=== PATIENT | female | born 1955 | race Caucasian/White ===

== ENCOUNTER 2016-04-01 10:35 | Inpatient (IN) | payer OTHER ==
[~2016-04-01] VITALS: Ht 162.6 cm; Wt 67.0 kg
[~2016-04-01 10:35] MED LIST: ASPI-664 PO; DOCU100C26 PO; LOSA1TAB19 PO; ONDA4TAB8 PO; PANT40TA4 PO; POLY17PO6 PO; TRAM-40 PO; TRAZ50TA18 PO
[2016-04-01] MEDS ORDERED: SOD CHLORIDE 0.9% 1,000 ML IV STA ×2 (11:08→13:50)
[2016-04-01] MEDS ORDERED: HYDROmorphONE 1 MG/ML SYG IV STA ×2 (11:21→13:50)
[2016-04-01] MEDS ORDERED: ONDANSETRON 4 MG INJ IV STA ×2 (11:52→13:50)
[2016-04-01 11:58] LABS: BASOPHILS % 0.6 % (0.0-2.0); EOSINOPHILS % 0.6 % (0.0-7.0); HEMATOCRIT 29.4 % (37.0-47.0); HEMOGLOBIN 9.9 g/dl (12.0-16.0); LYMPHOCYTES # 1.1 10^3/ul (0.8-2.9); LYMPHOCYTES % 21.8 % (15.0-51.0); MEAN CORPUSCULAR HEMOGLOBIN 33.1 pg (29.0-33.0); MEAN CORPUSCULAR HGB CONC 33.7 g/dl (32.0-37.0); MEAN CORPUSCULAR VOLUME 98.2 fl (82.0-101.0); MEAN PLATELET VOLUME 7.8 fl (7.4-10.4); MONOCYTE # 0.4 10^3/ul (0.3-0.9); MONOCYTES % 8.6 % (0.0-11.0); NEUTROPHIL # 3.3 10^3/ul (1.6-7.5); NEUTROPHILS % 68.4 % (39.0-77.0); PLATELET COUNT 287 10^3/UL (140-440); RED BLOOD COUNT 2.99 10^6/ul (4.20-5.40); RED CELL DISTRIBUTION WIDTH 18.5 % (11.5-14.5); UNCORRECTED WBC 4.8 10^3/ul (4.8-10.8); WHITE BLOOD COUNT 4.8 10^3/ul (4.8-10.8)
[2016-04-01 11:59] LABS: CONDITION 1; LH ANALYZER COMMENTS 1
--- NOTE | 2016-04-01 12:02 | ERA ---
ER Documentation Chief Complaint Date/Time DATE: 04/01/16 TIME: 11:57 Chief Complaint left flank pain for 8 days.no trauma, no hematuria or dysuria HPI This is a 61-year-old female with a known history of ovarian carcinoma with total abdominal hysterectomy performed in May 2015. Her locks tender oncologist is Dr. Erick Saldñaa. The patient has completed her chemotherapy several months prior to arrival. She indicates that over the past 8 days she has been experiencing bilateral flank pain. The pain is been persistent. The pain is 10 out of 10 in intensity. She has been taking Dallas with no relief of her pain. She has had no fevers or shaking or chills. She denies any frequency urgency or dysuria. She has had nausea but denies any bilious or nonbilious emesis. She has had no diarrhea or constipation. She does indicate that she is experienced this pain in the past however normally this flank pain is relieved with Dallas and given that her analgesic medication at home did not improve her pain she came to the emergency department to be further evaluated. She has no shortness of breath at rest or exertion. She has no chest pain or pressure that radiates to the neck arm back or jaw. ROS All systems reviewed and are negative except as per history of present illness. Medications Home Meds Reported Medications Docusate Sodium* (Doc-Q-Lace*) 100 Mg Capsule, 100 MG PO DAILY, CAP 12/17/15 Polyethylene Glycol* (Miralax*) 17 Gm Powd.pack, 17 GM PO DAILY, #30 PACKET 12/17/15 Trazodone Hcl* (Trazodone Hcl*) 50 Mg Tablet, 50 MG PO QHS, #30 TAB 12/17/15 Ondansetron Hcl* (Zofran*) 4 Mg Tablet, 4 MG PO Q6H Y for NAUSEA AND OR VOMITING , TAB 12/17/15 Tramadol Hcl* (Ultram*) 50 Mg Tablet, 50 MG PO TID Y for PAIN, TAB 12/17/15 Aspirin (Low Dose Aspirin) 81 Mg Tablet.dr, 81 MG PO DAILY, #30 TAB 12/17/15 Losartan-Hydrochlorothiazide (Losartan-HCTZ) 50-12.5 Mg Tab, 1 TAB PO DAILY, TAB 12/17/15 Pantoprazole* (Pantoprazole*) 40 Mg Tablet.dr, 40 MG PO DAILY, TAB 12/17/15 Allergies Allergies: Coded Allergies: No Known Allergy (Unverified , 12/17/15) PMhx/Soc History of Surgery: Yes (hernia, hysterectomy, abdomen, right shoulder) Anesthesia Reaction: No Hx Neurological Disorder: No Hx Respiratory Disorders: No Hx Cardiac Disorders: No Hx Psychiatric Problems: No Hx Miscellaneous Medical Probl: Yes (ovaries cancer. ) Hx Alcohol Use: No Hx Substance Use: No Hx Tobacco Use: No Smoking Status: Never smoker Physical Exam Vitals Vital Signs Date Time Temp Pulse Resp B/P Pulse Ox O2 Delivery O2 Flow Rate FiO2 04/01/16 10:37 98.6 102 20 133/85 98 Physical Exam Constitutional:Well-developed. Cachectic. Appeared to be in a significant amount discomfort. HEENT:Normocephalic. Atraumatic.Pupils were equal round reactive to light. Dry mucous membranes.No tonsillar exudates. Neck: No nuchal rigidity. No lymphadenopathy. No posterior cervical spine tenderness or step-offs. Respiratory: Not using accessory muscles of respiration.Lungs were clear to auscultation bilaterally. No rhonchi. No rales. No wheezing. Cardiovascular: Regular rate regular rhythm.No murmurs. No rubs were appreciated.S1, S2 normal. Distal pulses are palpable 2+ bilaterally. GI: Abdomen was soft. Bilateral CVA tenderness. Non Distended. No pulsatile abdominal masses or bruits. No rebound. No guarding. Bowel sounds were present and normal. Muscle skeletal: Full range of motion of both the upper and lower extremities bilaterally.Normal muscle tone.No assymetrical calf tenderness or swelling. Skin: No petechia, no purpura. No lesions on the palms or the soles of the feet. No maculopapular rash. Right chest wall port in place which was clean dry and intact NEURO: Patient was alert, awake, orientated x3.No facial droop. Gait observed and normal with no ataxia.Speech had regular rate and rhythm. No focal neurological deficits. Result Diagram: 04/01/16 1137 04/01/16 1137 Results 24 hrs Laboratory Tests Test 04/01/16 11:37 Activated Partial Thromboplast Time 27.4Sec Alanine Aminotransferase (ALT/SGPT) 35IU/L Albumin 3.6g/dl Albumin/Globulin Ratio 1.24 Alkaline Phosphatase 135IU/L Amylase Level 48U/L Anion Gap 16 Aspartate Amino Transf (AST/SGOT) 37IU/L Basophils # 0.010^3/ul Basophils % 0.6% Blood Morphology Comment Blood Urea Nitrogen 9mg/dl Calcium Level 9.2mg/dl Carbon Dioxide Level 32mmol/L Chloride Level 98mmol/L Creatinine 0.87mg/dl Direct Bilirubin 0.00mg/dl Eosinophils # 0.010^3/ul Eosinophils % 0.6% Globulin 2.90g/dl Glucose Level 115mg/dl Hematocrit 29.4% Hemoglobin 9.9g/dl INR International Normalized Ratio 1.01 Indirect Bilirubin 0.3mg/dl Lipase 66U/L Lymphocytes # 1.110^3/ul Lymphocytes % 21.8% Mean Corpuscular Hemoglobin 33.1pg Mean Corpuscular Hemoglobin Concent 33.7g/dl Mean Corpuscular Volume 98.2fl Mean Platelet Volume 7.8fl Monocytes # 0.410^3/ul Monocytes % 8.6% Neutrophils # 3.310^3/ul Neutrophils % 68.4% Nucleated Red Blood Cells # 0.010^3/ul Nucleated Red Blood Cells % 0.0/100WBC Platelet Count 31164^3/UL Potassium Level 3.1mmol/L Prothrombin Time 13.3Sec Prothrombin Time Ratio 1.0 Red Blood Count 2.9910^6/ul Red Cell Distribution Width 18.5% Sodium Level 143mmol/L Total Bilirubin 0.3mg/dl Total Protein 6.5g/dl Troponin I < 0.012ng/ml White Blood Count 4.810^3/ul Current Medications Medications (Trade) Dose Ordered Sig/Bossman Route PRN Reason Start Time Stop Time Status Last Admin Dose Admin Sodium Chloride (NS) 1,000 ml @ 1,000 mls/hr Q1H STAT IV 04/01/16 11:08 04/01/16 12:07 DC 04/01/16 11:44 Hydromorphone HCl (Dilaudid) 1 mg ONCE STAT IV 04/01/16 11:21 04/01/16 11:23 DC 04/01/16 11:44 Ondansetron HCl 4 mg 4 mg ONCE STAT IV 04/01/16 11:52 04/01/16 11:53 DC 04/01/16 11:57 Sodium Chloride (NS) 1,000 ml @ 1,000 mls/hr Q1H STAT IV 04/01/16 13:50 04/01/16 14:49 04/01/16 14:16 Hydromorphone HCl (Dilaudid) 1 mg ONCE STAT IV 04/01/16 13:50 04/01/16 13:52 DC 04/01/16 14:15 Ondansetron HCl (Zofran Inj) 4 mg ONCE STAT IV 04/01/16 13:50 04/01/16 13:52 DC 04/01/16 14:16 Potassium Chloride (Klor-Con 20) 20 meq ONCE STAT PO 04/01/16 13:50 04/01/16 13:53 DC 04/01/16 14:16 Ondansetron HCl (Zofran Inj) 4 mg BRIDGE ORDER PRN IV NAUSEA AND/OR VOMITING 04/01/16 14:30 04/02/16 14:29 Acetaminophen (Tylenol Tab) 650 mg ER BRIDGE PRN PO MILD PAIN/FEVER 04/01/16 14:30 04/02/16 14:29 Procedures/MDM This patient presented to the emergency department with flank pain and was seen and evaluated by myself. My differential diagnosis included but was not limited to abdominal aortic aneurysm, appendicitis, pancreatitis, perforated peptic ulcer, perforated viscus, Boerhaaves syndrome or visceral pain such as diverticulitis, DKA, esophagitis, hepatitis or bowel obstruction. The patient was placed on a truck safety inspector, continuous pulse oximetry, and IV access was established by nursing staff. The patient received intravenous Dilaudid and Zofran. Her pain had only minimally improved. I did feel is necessary to obtain a chest radiograph to rule out an infectious process. The radiograph indicated the following read by the radiologist and myself: 1. Port-A-Cath overlying the right chest. 2. Elevated right diaphragm. 3. No infiltrates visualized. I obtained a CT scan of the abdomen to rule out the possibility of an obstruction that could be causing her pain. A CT scan read by the radiologist and reviewed by myself indicated the followin. Significant interval worsening of malignant ascites with sizable fluid collection in the left upper quadrant compressing the left hepatic lobe. 2. Small cystic implants along the right hepatic lobe, not significantly changed. 3. Matted appearance of the small bowel in the lower abdomen/pelvis with angulated appearance and distortion of the bowel loops with areas of dilatation likely related to serosal implants although they are not clearly visible on this exam due to absence of IV and oral contrast. 4. Anastomosis at the rectosigmoid junction with surrounding soft tissue thickening. Nonspecific presacral soft tissue thickening as well. The findings are not significantly changed. 5. Unchanged moderate right hydroureteronephrosis. 6. New mild left hydroureteronephrosis. 7. Layering sludge versus small stones in the gallbladder. 12 Lead EKG tracing ordered and reviewed by myself showed: Normal sinus rhythm of 81 bpm and no arrhythmia. MA interval normal. QRS duration normal. No ST segment elevation No ST segment depression. No changes consistent with acute ischemia. The patient received another dose of analgesic medication and IV fluids. After receiving 2 doses of IV opiate analgesic medication her pain had only improved minimally and therefore I did feel she required admission for intractable abdominal pain. The patient had no tenderness in the left of the right lower quadrant or physical exam findings to suggest a small bowel obstruction. There is no obstructive uropathy and I did feel that her pain could be a result of her neoplasm without evidence of infection. She will be admitted for observation to the medical surgical floor under the care of her primary care physician Dr. Gamino. I also spoke with Dr. Erick Johnston to inform him the patient was being admitted but he was not officially consulted. Departure Diagnosis: Primary Impression: Intractable abdominal pain Condition: Serious JUAN PABLO COBB Apr 01, 2016 12:02
[2016-04-01 12:04] LABS: INR 1.01; PROTIME 13.3 Sec (12.2-14.2)
[2016-04-01 12:05] LABS: PARTIAL THROMBOPLASTIN TIME 27.4 Sec (25.0-35.0)
[2016-04-01 12:10] LABS: ALBUMIN 3.6 g/dl (3.3-4.9)
[2016-04-01 12:11] LABS: CHLORIDE 98 mmol/L (97-110); POTASSIUM 3.1 mmol/L (3.5-5.1); SODIUM 143 mmol/L (135-144)
[2016-04-01 12:13] LABS: ALBUMIN/GLOBULIN RATIO 1.24; AMYLASE 48 U/L (11-123); ANION GAP 16 (8-16); ASPARTATE AMINO TRANSFERASE 37 IU/L (15-46); BILIRUBIN,INDIRECT 0.3 mg/dl (0-1.1); BILIRUBIN,TOTAL 0.3 mg/dl (0.2-1.3); CARBON DIOXIDE 32 mmol/L (21-31); CREATININE 0.87 mg/dl (0.44-1.00); TOTAL PROTEIN 6.5 g/dl (6.1-8.1)
[2016-04-01 12:14] LABS: ALANINE AMINOTRANSFERASE 35 IU/L (13-69); ALKALINE PHOSPHATASE 135 IU/L (42-121); BLOOD UREA NITROGEN 9 mg/dl (7-20); CALCIUM 9.2 mg/dl (8.4-10.2); GLUCOSE 115 mg/dl (70-220)
--- NOTE | 2016-04-01 12:19 | RADRPT ---
PROCEDURE: Chest x-ray CLINICAL INDICATION: Pain. TECHNIQUE: One-view frontal. COMPARISON: None available FINDINGS: The cardiac silhouette is normal. Port-A-Cath overlies the right chest. The catheter is in the superior vena cava. There is mild elevation of the right diaphragm. No infiltrates are noted. No pneumothorax is noted. IMPRESSION: 1. Port-A-Cath overlying the right chest. 2. Elevated right diaphragm. 3. No infiltrates visualized. RPTAT: HH .Soren Mcdonough MD, MD Date Time Electronically viewed and signed by .Soren Mcdonough MD, on 04/01/2016 12:19 .G/
[2016-04-01 12:29] LABS: TROPONIN-I < 0.012 ng/ml (0.00-0.12)
--- NOTE | 2016-04-01 13:00 | RADRPT ---
PROCEDURE: CT Abdomen and Pelvis without contrast. CLINICAL INDICATION: Abdominal pain. History of ovarian and colon cancer. The patient is on chemo . TECHNIQUE: CT scan of the abdomen and pelvis without contrast was performed on a multidetector hig h-resolution CT scanner. The patient was scanned without intravenous contrast. Coronal and sagittal reformatted images were obtained from the axial source images. Images were reviewed on a high-resol [employer] (formerly [employer]) PACS workstation. The total exam CTDI equals 15.25 mGy and the total exam DLP equals 912.85 mG y-cm. One or more of the following dose reduction techniques were used: Automated exposure control. Adjustment of the mA and/or kV according to patient size. Use of iterative reconstruction technique. COMPARISON: CT abdomen and pelvis 12/17/2015 FINDINGS: CT abdomen: The lung bases are remarkable for mild bibasilar atelectasis. The heart size is normal, without per icardial thickening or effusion. There has been significant interval worsening of malignant ascites. Small cystic implants along the right hepatic lobe appear similar to prior. Redemonstrated is matted appearance of the small bowel loops in the lower abdomen and pelvis with angulated appearance and areas of dilatation. There is high suspicion of mesenteric implants in this area. Postsurgical changes are again seen in the rect osigmoid junction with surrounding nonspecific soft tissue thickening. There is persistent moderate hydroureteronephrosis. There is new mild left hydroureteronephrosis. The spleen is normal in size and homogeneous in density. The stomach is partially collapsed, but i s grossly unremarkable. The pancreas as visualized is normal. The gallbladder and biliary tree are unremarkable and there is no evidence for biliary dilatation. The adrenal glands are symmetric and normal. There is no urolithiasis. The aorta is of normal caliber. There is no retroperitoneal lymphadenopathy. The erlinda hepatis jayde on is clear. The bowel and mesentery, as visualized, are equally unremarkable. CT pelvis: Preseptal soft tissue thickening appear similar to prior. There is mild stool retention in the rect um. The surrounding osseous structures are remarkable for degenerative spondylosis of the spine. No osteolytic or osteoblastic lesion is detected. IMPRESSION: 1. Significant interval worsening of malignant ascites with sizable fluid collection in the left up per quadrant compressing the left hepatic lobe. 2. Small cystic implants along the right hepatic lobe, not significantly changed. 3. Matted appearance of the small bowel in the lower abdomen/pelvis with angulated appearance and d istortion of the bowel loops with areas of dilatation likely related to serosal implants although th ey are not clearly visible on this exam due to absence of IV and oral contrast. 4. Anastomosis at the rectosigmoid junction with surrounding soft tissue thickening. Nonspecific pr esacral soft tissue thickening as well. The findings are not significantly changed. 5. Unchanged moderate right hydroureteronephrosis. 6. New mild left hydroureteronephrosis. 7. Layering sludge versus small stones in the gallbladder. RPTAT: BB .Fátima Mullen MD, MD Date Time Electronically viewed and signed by .Fátima Mullen MD, MD on 04/01/2016 13:00 .O/
[2016-04-01] MEDS ORDERED: POTASSIUM CHLORIDE (SR) 20 MEQ TAB PO STA (13:50)
[2016-04-01] MEDS ORDERED: ACETAMINOPHEN 325 MG TAB PO PRN (14:30)
[2016-04-01] MEDS ORDERED: ONDANSETRON 4 MG INJ IV PRN (14:30)
[2016-04-01 17:05] LABS: ADD UMIC NO; URINE BILIRUBIN (Dip) NEGATIVE (NEGATIVE); URINE BLOOD (Dip) NEGATIVE (NEGATIVE); URINE COLOR LT. YELLOW (YELLOW); URINE GLUCOSE (Dip) NEGATIVE (NEGATIVE); URINE KETONES (Dip) TRACE (NEGATIVE); URINE LEUKOCYTE ESTERASE (Dip) NEGATIVE (NEGATIVE); URINE NITRITE (Dip) NEGATIVE (NEGATIVE); URINE TOTAL PROTEIN (Dip) NEGATIVE (NEGATIVE); URINE UROBILINOGEN (Dip) 0.2 E.U./dL (0.1-1.0)
[2016-04-01] MEDS ORDERED: NACL 0.9% 3 ML SYG IV SCH (18:00)
[2016-04-01] MEDS: HYDROmorphONE 1 MG/ML SYG IV PRN (18:09)
[2016-04-01] MEDS: ENOXAPARIN 30 MG/0.3 ML SYG SC SCH (18:16)
--- NOTE | 2016-04-01 18:32 | HP ---
DATE OF ADMISSION: 04/01/2016 CHIEF COMPLAINT: Left flank pain and left abdominal pain for the last 8 days. It got significantly worse over the last couple of days. HISTORY OF THE PRESENT ILLNESS: The patient is a 61-year-old female with history of ovaria n carcinoma with metastasis. Patient had a surgery by Dr. Johnston in May 2015. Patient stated t hat she is in the process of evaluation for the second surgery. The patient also follows with Dr. Christine sheth in hematology/oncology consultation. The patient received 6 cycles of chemotherapy that she co mpleted several months ago. The patient stated that she developed severe left flank and left lower abdomen pain. The patient was taking Erie at home; however, that does not relieve her pain anymore . Patient stated that she has some mild nausea. Denies any emesis. The patient denies any fever. Denies any chest pain, denies any shortness of breath, denies any extremity swelling. Denies any c hange in neurological status. Denies fever, chills. Patient received Zofran for nausea and Dilaudi d for pain with some relief in symptoms. The patient also underwent a chest x-ray in the emergency room which showed elevated right diaphragm, no infiltrates, Port-A-Cath overlying the right chest. The patient underwent a CT scan of the abdomen and pelvis with impression of significant interval wo rsening of malignant ascites with sizeable fluid collection in the left upper quadrant compressing t he left hepatic pole. 2. Small cystic implants along the right hip by hepatic pole, not significantly changed. 3. Matted appearance of the small bowel in the lower abdomen/pelvis with undulated appearance and d istortion of the bowel loop with areas of dilatation likely related to serosal implants, although th ey are not clearly visible on this exam. 4. Anastomosis at the rectosigmoid junction with surrounding soft tissue thickening, nonspecific pr esacral soft tissue thickening as well. The findings are not significantly changed. 5. Unchanged, moderate right hydronephrosis. 6. New mild hydroureteronephrosis. 7. Layering sludge versus small stones in the gallbladder. The patient also deal denies any dysuri a. 8. A 12-lead EKG showed sinus rhythm with no ST segment elevation or depression and patient will be admitted for further evaluation and management. PAST MEDICAL HISTORY: Positive for hypertension, anemia and ovarian cancer status post chemotherapy and mentioned surgery last year. PAST SURGICAL HISTORY: Status post total abdominal hysterectomy and oophorectomy and colon resectio n by Dr. Johnston in May 2015, status post hernia repair, status post right shoulder surgery x2. FAMILY HISTORY: Positive for hypertension in patient's mother and father. SOCIAL HISTORY: Patient lives at home with her . The patient denies any tobacco use, denies any illicit drug use, denies any alcohol use. ALLERGIES: NO KNOWN ALLERGIES. HOME MEDICATIONS 1. Colace. 2. MiraLax. 3. Trazodone. 4. Zofran. 5. Ultram 6. Losartan. 7. Hydrochlorothiazide. 8. Protonix. 9. Erie. REVIEW OF SYSTEMS: A 12-point review of systems is negative unless what mentioned in the HPI. PHYSICAL ASSESSMENT: GENERAL: Well-developed, well-nourished female currently is awake, alert. VITAL SIGNS: Temperature is 98.6, pulse is 81, blood pressure 136/95, respiratory rate 19, oxygen s aturation 100% on room air. HEENT: Head is atraumatic, normocephalic. Pupils equal, round, reactive to light and accommodation . Oral mucosa is pink and moist. NECK: Supple, no cervical lymphadenopathy, no thyromegaly. CHEST: Lungs clear bilaterally. There is no rhonchi, wheezes, rales noted. CARDIOVASCULAR: Normal S1, S2. No murmurs, gallops, clicks, rubs noted. ABDOMEN: Round, soft, nondistended. Patient has right lower quadrant tenderness and bilateral cost overtebral angle tenderness. SKIN: There is no rash, petechiae noted. EXTREMITIES: No edema, clubbing, cyanosis. Pulses equal bilaterally 2+. SKIN: There is no rash or petechiae noted. NEUROLOGICAL: The patient is awake, alert and oriented x4. No focal deficits noted. LABORATORY DATA: On admission, CBC: White blood cells 4.8, hemoglobin 9.9, hematocrit 29.4, plate lets 287. Chemistry: Sodium is 143, potassium 3.1, chloride 98, carbon dioxide 32, anion gap 16, B UN 9, creatinine 0.87, glucose 115, AST 37, ALT 35, alkaline phosphate is 135. Troponin less than 0 .012, amylase is 48, lipase 66. Urinalysis with trace of ketones, negative for leukocyte esterase, negative for nitrites. ASSESSMENT AND PLAN: 1. Intractable abdominal pain. Will continue Dilaudid p.r.n. for pain and Zofran p.r.n. for nausea . 2. Ovarian cancer. Patient will be followed by Dr. Foy in hematology/oncology consultation and f ollowed by Dr. Johnston from a surgery standpoint. 3. Will continue IV fluids. Monitor electrolytes. The patient is status post potassium replacemen t. 4. Will start Lovenox for deep venous thrombosis prophylaxis and Protonix for peptic ulcer disease prophylaxis. 5. Further recommendations based on clinical course. Plan of care was discussed with Dr. Zazueta. Dictated By: LARRY [facility] [employer] REPRESENTATIVE for BRIAN ZAZUETA MD SR/NTS Conf#: [id number] DID#: [id number]
[2016-04-01 19:27] VITALS: BP 134/81; RESP 18
[2016-04-01 20:00] VITALS: Ht 162.6 cm; Wt 67.0 kg
[2016-04-01] MEDS: ZOLPIDEM 5 MG TAB PO PRN (22:16)
[2016-04-02] MEDS: HYDROmorphONE 1 MG/ML SYG IV PRN ×6 (00:33→21:41)
[2016-04-02] MEDS: ONDANSETRON 4 MG INJ IV PRN ×2 (04:13→12:03)
[2016-04-02] MEDS: PANTOPRAZOLE (EC) 40 MG TAB PO SCH (05:47)
[2016-04-02] MEDS ORDERED: DIPHENHYDRAMINE 25 MG CAP PO PRN (07:00)
[2016-04-02 07:35] VITALS: BP 126/82; RESP 20
[2016-04-02 08:12] LABS: POTASSIUM 3.5 mmol/L (3.5-5.1)
[2016-04-02 08:15] LABS: CREATININE 0.76 mg/dl (0.44-1.00)
[2016-04-02 08:16] LABS: CALCIUM 8.6 mg/dl (8.4-10.2)
[2016-04-02 08:17] LABS: BASOPHILS % 0.2 % (0.0-2.0); EOSINOPHILS # 0.1 10^3/ul (0.0-0.5); EOSINOPHILS % 1.5 % (0.0-7.0); LYMPHOCYTES # 1.1 10^3/ul (0.8-2.9); LYMPHOCYTES % 25.9 % (15.0-51.0); MEAN CORPUSCULAR HEMOGLOBIN 32.6 pg (29.0-33.0); MEAN CORPUSCULAR HGB CONC 32.1 g/dl (32.0-37.0); MEAN CORPUSCULAR VOLUME 101.4 fl (82.0-101.0); MONOCYTE # 0.4 10^3/ul (0.3-0.9); NEUTROPHIL # 2.6 10^3/ul (1.6-7.5); NEUTROPHILS % 62.9 % (39.0-77.0); PLATELET COUNT 268 10^3/UL (140-415); RED BLOOD COUNT 2.76 10^6/ul (4.20-5.40); RED CELL DISTRIBUTION WIDTH 17.1 % (11.5-14.5); WHITE BLOOD COUNT 4.1 10^3/ul (4.8-10.8)
[2016-04-02] MEDS: ENOXAPARIN 30 MG/0.3 ML SYG SC SCH (09:11)
--- NOTE | 2016-04-02 10:03 | PN ---
Date/Time of Note Date/Time of Note DATE: 04/02/16 TIME: 10:00 Assessment/Plan VTE Prophylaxis VTE Prophylaxis Intervention: LMWH Lines/Catheters IV Catheter Type (from Nrsg): PORTACATH Assessment/Plan Assessment/Plan 1. Intractable abdominal pain. - Dilaudid p.r.n. for pain and Zofran p.r.n. for nausea. 2. Ovarian cancer. - per Dr. Foy in hematology/oncology consultation and followed by Dr. Johnston from a surgery standpoint. 3. Continue IV fluids. Monitor electrolytes. 4. Lovenox for deep venous thrombosis prophylaxis 5. Protonix for peptic ulcer disease prophylaxis. 6. Hypokalemia- resolved Further recommendations based on clinical course. Plan of care was discussed with Dr. Bravo. Subjective 24 Hr Interval Summary Free Text/Dictation c/o abdominal pain- on dilaudid for pain- effective for pain. dw staff Constitutional: requiring IVF Eyes: no complaints ENT: no complaints Respiratory: no complaints Cardiovascular: no complaints Gastrointestinal: pain Genitourinary: no complaints Musculoskeletal: no complaints Skin: no complaints Neurologic: no complaints Endocrine: no complaints Psychological: no complaints Immunologic: no complaints Exam/Review of Systems Vital Signs Vitals Vital Signs Date Time Temp Pulse Resp B/P Pulse Ox O2 Delivery O2 Flow Rate FiO2 04/02/16 07:35 98.2 76 20 126/82 97 04/01/16 18:03 Room Air Intake and Output 04/01/16 04/01/16 04/02/16 15:00 23:00 07:00 Intake Total 800 ml Balance 800 ml Exam Constitutional: alert, oriented, well developed Psych: no complaints Head: atraumatic Eyes: EOMI, PERRL, nl sclera ENMT: nl external ears & nose Neck: non-tender Respiratory: clear to auscultation Cardiovascular: nl pulses Gastrointestinal: non-tender, soft Musculoskeletal: nl extremities to inspection Extremities: normal pulses Neurological: nl mental status, nl speech Skin: nl turgor Lymph: nontender Results Result Diagram: 04/02/16 0729 04/02/16 0729 Results 24 hrs Laboratory Tests Test 04/01/16 11:37 04/01/16 16:22 04/02/16 07:29 Activated Partial Thromboplast Time 27.4 Alanine Aminotransferase (ALT/SGPT) 35 Albumin 3.6 Albumin/Globulin Ratio 1.24 Alkaline Phosphatase 135 H Amylase Level 48 Anion Gap 16 14 Aspartate Amino Transf (AST/SGOT) 37 Basophils # 0.0 0.0 Basophils % 0.6 0.2 Blood Morphology Comment Blood Urea Nitrogen 9 8 Calcium Level 9.2 8.6 Carbon Dioxide Level 32 H 28 Chloride Level 98 100 Creatinine 0.87 0.76 Direct Bilirubin 0.00 Eosinophils # 0.0 0.1 Eosinophils % 0.6 1.5 Globulin 2.90 Glucose Level 115 105 Hematocrit 29.4 L 28.0 L Hemoglobin 9.9 L 9.0 L INR International Normalized Ratio 1.01 Indirect Bilirubin 0.3 Lipase 66 Lymphocytes # 1.1 1.1 Lymphocytes % 21.8 25.9 Mean Corpuscular Hemoglobin 33.1 H 32.6 Mean Corpuscular Hemoglobin Concent 33.7 32.1 Mean Corpuscular Volume 98.2 101.4 H Mean Platelet Volume 7.8 10.0 # Monocytes # 0.4 0.4 Monocytes % 8.6 9.0 Neutrophils # 3.3 2.6 Neutrophils % 68.4 62.9 Nucleated Red Blood Cells # 0.0 0.0 Nucleated Red Blood Cells % 0.0 0.0 Platelet Count 287 # 268 Potassium Level 3.1 L 3.5 Prothrombin Time 13.3 Prothrombin Time Ratio 1.0 Red Blood Count 2.99 L 2.76 L Red Cell Distribution Width 18.5 H 17.1 H Sodium Level 143 138 Total Bilirubin 0.3 Total Protein 6.5 Troponin I < 0.012 White Blood Count 4.8 # 4.1 L Urine Bilirubin NEGATIVE Urine Clarity CLEAR Urine Color LT. YELLOW Urine Glucose NEGATIVE Urine Hemoglobin NEGATIVE Urine Ketones TRACE H Urine Leukocyte Esterase NEGATIVE Urine Nitrite NEGATIVE Urine Specific [place] 1.010 Urine Total Protein NEGATIVE Urine Urobilinogen 0.2 E.U./dL Urine pH 8.5 Medications Medications Current Medications Ondansetron HCl (Zofran Inj) 4 mg Q6H PRN IV NAUSEA AND/OR VOMITING Last administered on 04/02/16t 04:13; Admin Dose 4 MG; Start 04/01/16 at 18:00 Acetaminophen/ Hydrocodone Bitart ([place]nell (5/325)) 1 tab Q6H PRN PO MODERATE PAIN LEVEL 4-6; Start 04/01/16 at 18:00 Hydromorphone HCl (Dilaudid) 1 mg Q4H PRN IV SEVERE PAIN LEVEL 7-10 Last administered on 04/02/16 09:05; Admin Dose 1 MG; Start 04/01/16 at 18:00 Pantoprazole (Protonix Tab) 40 mg DAILY@06 PO Last administered on 04/02/16 05 :47; Admin Dose 40 MG; Start 04/02/16 at 06:00 Enoxaparin Sodium (Lovenox) 30 mg DAILY SC Last administered on 04/02/16 09:11 ; Admin Dose 30 MG; Start 04/01/16 at 18:00 Zolpidem Tartrate (Ambien) 5 mg HS PRN PO INSOMNIA Last administered on 22:16; Admin Dose 5 MG; Start 04/01/16 at 22:00 Diphenhydramine HCl (Benadryl) 25 mg Q6H PRN PO ITCHING Last administered on 06:49; Admin Dose 25 MG; Start 04/02/16 at 07:00 BLAKE BRUMFIELD Apr 02, 2016 10:03
--- NOTE | 2016-04-02 14:26 | CONS ---
Date/Time of Note Date/Time of Note DATE: 04/02/16 TIME: 14:24 Assessment/Plan Assessment/Plan Chief Complaint/Hosp Course 61-year-old female with stage IIIB ovarian cancer s/p surgery by Dr. Johnston in May 2015 and 6 cycles of carbo/taxol with persistently elevated CA125, recently admitted to outside hospital with CT concerning for persistent disease, now admitted with 1 month of left flank pain. - Recent PET/CT 03-26-16 showed progressive disease with large volume of peripherally FDG avid loculated abdominal and pelvic ascites with increased omental caking and peritoneal nodularity noted throughout the abdomen and pelvis consistent with progressive recurrent ovarian carcinoma. with history of ovarian carcinoma with metastasis. - Discussed with Dr. Foy; she had planned to start gemcitabine/cisplatin. Dr. Johnston will evaluate the patient today. If no plan for surgical intervention, plan to start gemcitabine/cisplatin while in house. - Suggest simethicone for gas. Continue pain control per primary team. Problems: Consultation Date/Type/Reason Admit Date/Time Apr 02, 2016 at 10:07 Date of Consultation: Apr 02, 2016 Type of Consultation: Hematology/Oncology Reason for Consultation Intractable pain, ovarian cancer Hx of Present Illness The patient is a 61-year-old female with stage IIIB ovarian cancer s/p surgery by Dr. Johnston in May 2015 and 6 cycles of carbo/taxol with persistently elevated CA125, recently admitted to outside hospital with CT concerning for persistent disease, now admitted with eight days of abdominal and left flank pain. She also endorses bloating. Recent PET/CT 03-26-16 showed progressive disease with large volume of peripherally FDG avid loculated abdominal and pelvic ascites with increased omental caking and peritoneal nodularity noted throughout the abdomen and pelvis consistent with progressive recurrent ovarian carcinoma. with history of ovarian carcinoma with metastasis. The patient stated that she developed severe left flank and left lower abdomen pain. The patient was taking [place] at home; however, that does not relieve her pain anymore. Patient stated that she has some mild nausea. Denies any emesis. The patient denies any fever. Denies any chest pain, denies any shortness of breath, denies any extremity swelling. Denies any change in neurological status. Denies fever, chills. Patient received Zofran for nausea and Dilaudid for pain with some relief in symptoms. The patient also underwent a chest x-ray in the emergency room which showed elevated right diaphragm, no infiltrates, Port-A-Cath overlying the right chest. The patient underwent a CT scan of the abdomen and pelvis with impression of significant interval worsening of malignant ascites with sizeable fluid collection in the left upper quadrant compressing the left hepatic pole. 2. Small cystic implants along the right hip by hepatic pole, not significantly changed. 3. Matted appearance of the small bowel in the lower abdomen/pelvis with undulated appearance and distortion of the bowel loop with areas of dilatation likely related to serosal implants, although they are not clearly visible on this exam. 4. Anastomosis at the rectosigmoid junction with surrounding soft tissue thickening, nonspecific presacral soft tissue thickening as well. The findings are not significantly changed. 5. Unchanged, moderate right hydronephrosis. 6. New mild hydroureteronephrosis. 7. Layering sludge versus small stones in the gallbladder. Psychological: no complaints Past Medical History Hypertension, anemia and ovarian cancer status post chemotherapy and mentioned surgery last year. Past Surgical History Status post total abdominal hysterectomy and oophorectomy and colon resection by Dr. Johnston in May 2015, status post hernia repair, status post right shoulder surgery x2 Family History Significant Family History: other (Positive for hypertension in patient's mother and father) Social History Patient lives at home with her . The patient denies any tobacco use, denies any illicit drug use, denies any alcohol use. Smoking Status: Never smoker Exam/Review of Systems Vital Signs Vitals Vital Signs Date Time Temp Pulse Resp B/P Pulse Ox O2 Delivery O2 Flow Rate FiO2 04/02/16 07:35 98.2 76 20 126/82 97 04/01/16 18:03 Room Air Intake and Output 04/01/16 04/01/16 04/02/16 15:00 23:00 07:00 Intake Total 800 ml Balance 800 ml Exam Constitutional: alert, oriented Head: atraumatic, normocephalic Eyes: nl conjunctiva Neck: non-tender, supple Respiratory: clear to auscultation Cardiovascular: regular rate and rhythm Gastrointestinal: soft, tender Musculoskeletal: nl extremities to inspection Results Result Diagram: 04/02/16 0729 04/02/16 0729 Results 24 hrs Laboratory Tests Test 04/01/16 16:22 04/02/16 07:29 Urine Bilirubin NEGATIVE Urine Clarity CLEAR Urine Color LT. YELLOW Urine Glucose NEGATIVE Urine Hemoglobin NEGATIVE Urine Ketones TRACE H Urine Leukocyte Esterase NEGATIVE Urine Nitrite NEGATIVE Urine Specific [place] 1.010 Urine Total Protein NEGATIVE Urine Urobilinogen 0.2 E.U./dL Urine pH 8.5 Anion Gap 14 Basophils # 0.0 Basophils % 0.2 Blood Urea Nitrogen 8 Calcium Level 8.6 Carbon Dioxide Level 28 Chloride Level 100 Creatinine 0.76 Eosinophils # 0.1 Eosinophils % 1.5 Glucose Level 105 Hematocrit 28.0 L Hemoglobin 9.0 L Lymphocytes # 1.1 Lymphocytes % 25.9 Mean Corpuscular Hemoglobin 32.6 Mean Corpuscular Hemoglobin Concent 32.1 Mean Corpuscular Volume 101.4 H Mean Platelet Volume 10.0 # Monocytes # 0.4 Monocytes % 9.0 Neutrophils # 2.6 Neutrophils % 62.9 Nucleated Red Blood Cells # 0.0 Nucleated Red Blood Cells % 0.0 Platelet Count 268 Potassium Level 3.5 Red Blood Count 2.76 L Red Cell Distribution Width 17.1 H Sodium Level 138 White Blood Count 4.1 L Medications Medications Current Medications Ondansetron HCl (Zofran Inj) 4 mg Q6H PRN IV NAUSEA AND/OR VOMITING Last administered on 04/02/16 12:03; Admin Dose 4 MG; Start 04/01/16 at 18:00 Acetaminophen/ Hydrocodone Bitart ([place] (5/325)) 1 tab Q6H PRN PO MODERATE PAIN LEVEL 4-6; Start 04/01/16 at 18:00 Hydromorphone HCl (Dilaudid) 1 mg Q4H PRN IV SEVERE PAIN LEVEL 7-10 Last administered on 04/02/16 13:13; Admin Dose 1 MG; Start 04/01/16 at 18:00 Pantoprazole (Protonix Tab) 40 mg DAILY@06 PO Last administered on 04/02/16 05 :47; Admin Dose 40 MG; Start 04/02/16 at 06:00 Enoxaparin Sodium (Lovenox) 30 mg DAILY SC Last administered on 04/02/16 09:11 ; Admin Dose 30 MG; Start 04/01/16 at 18:00 Zolpidem Tartrate (Ambien) 5 mg HS PRN PO INSOMNIA Last administered on 22:16; Admin Dose 5 MG; Start 04/01/16 at 22:00 Diphenhydramine HCl (Benadryl) 25 mg Q6H PRN PO ITCHING Last administered on t 06:49; Admin Dose 25 MG; Start 04/02/16 at 07:00 TOSEE MD Apr 02, 2016 14:26
[2016-04-02] MEDS: DEXTROSE 5%-0.45% NACL 1,000 ML IV SCH (17:33)
--- NOTE | 2016-04-02 18:53 | CONS ---
Date/Time of Note Date/Time of Note DATE: 04/02/16 TIME: 18:53 Consultation Date/Type/Reason Admit Date/Time Apr 02, 2016 at 10:07 Hx of Present Illness Andi Waddell M.D. 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 . Now, 9 months after completion of primary surgery she has persistentt disease either due to chemoresistence or a 3 month delay in starting the chemo postop dueto insurance issues. She has pain and recent intermittent N/V. Medical history/ROS: all other systems unremarkable. Surgical: Primary cytoreduction 05/24 Medications: 04/25/15 aspirin 80 mg tablet 1 tablet by mouth DAILY 12/05/15 docusate sodium 100 mg capsule 1 capsule by mouth BID 07/01/15 Gas Relief 125 mg capsule 1 capsule by mouth as directed 12/05/15 lorazepam 1 mg tablet 1 tablet by mouth Q12h 05/13/15 losartan 50 mg-hydrochlorothiazide 12.5 mg tablet 1 tablet by mouth DAILY 04/25/15 pantoprazole 40 mg tablet,delayed release 1 tablet by mouth BID 12/05/15 polyethylene glycol 3350 17 gram oral powder packet 12/05/15 senna 8.6 mg tablet 1 tablet by mouth BID 07/01/15 tramadol 50 mg tablet 1 tablet by mouth Q6-8h prn pain 08/15/15 trazodone 50 mg tablet 1 tablet by mouth QHS prn Allergies: No active allergies recorded Family History: Noncontributory Social History: Noncontributory Review of Systems: Negative except for above noted Physical Examination Vitals (03/31/2016): Weight 148, Height 62.25, BP 120/70, BMI 27.1. General: Alert. HEENT: Pupils are equal, round, reactive to light and accommodation. Neck: Supple with no masses of lymphadenopathy. Breast: Deferred due to recent examination and responsibility of primary care physician. Chest: Clear to auscultation and percussion with no rales, ronchi, or wheeze. Heart: Normal rhythm with no murmur. Abdominal exam: nontender, nondistended, no masses, no ascites. location: N/A Pelvic exam: no masses or cul-de-sac nodularity noted Rectal: confirmatory with pelvic exam. Neurological: Grossly intact Assessment: Ovarian cancer with recurrence would benefit from secondary CRS even though persistent disease because the problem is her chemo was delayed 3 months postop. Informed of need to start chemo nathan postop and will call [facility] Plan: Secondary cytoreduction, possible bowel resection, possible fecal diversion. All risks and benefits of this procedure have been discussed in detail with the patient, as well as alternative treatment strategies and their implications. The patient is aware that there is some possibility of a blood transfusion and its associated risks and benefits. She wishes to proceed and gives her informed consent. Andi Waddell M.D. Psychological: no complaints Social History Smoking Status: Never smoker Exam/Review of Systems Vital Signs Vitals Vital Signs Date Time Temp Pulse Resp B/P Pulse Ox O2 Delivery O2 Flow Rate FiO2 04/02/16 07:35 98.2 76 20 126/82 97 04/01/16 18:03 Room Air Intake and Output 04/01/16 04/01/16 04/02/16 15:00 23:00 07:00 Intake Total 800 ml Balance 800 ml Results Result Diagram: 04/02/16 0729 04/02/16 0729 Results 24 hrs Laboratory Tests Test 04/02/16 07:29 Anion Gap 14 Basophils # 0.0 Basophils % 0.2 Blood Urea Nitrogen 8 Calcium Level 8.6 Carbon Dioxide Level 28 Chloride Level 100 Creatinine 0.76 Eosinophils # 0.1 Eosinophils % 1.5 Glucose Level 105 Hematocrit 28.0 L Hemoglobin 9.0 L Lymphocytes # 1.1 Lymphocytes % 25.9 Mean Corpuscular Hemoglobin 32.6 Mean Corpuscular Hemoglobin Concent 32.1 Mean Corpuscular Volume 101.4 H Mean Platelet Volume 10.0 # Monocytes # 0.4 Monocytes % 9.0 Neutrophils # 2.6 Neutrophils % 62.9 Nucleated Red Blood Cells # 0.0 Nucleated Red Blood Cells % 0.0 Platelet Count 268 Potassium Level 3.5 Red Blood Count 2.76 L Red Cell Distribution Width 17.1 H Sodium Level 138 White Blood Count 4.1 L Medications Medications Current Medications Ondansetron HCl (Zofran Inj) 4 mg Q6H PRN IV NAUSEA AND/OR VOMITING Last administered on 04/02/16 12:03; Admin Dose 4 MG; Start 04/01/16 at 18:00 Acetaminophen/ Hydrocodone Bitart ([place] (5/325)) 1 tab Q6H PRN PO MODERATE PAIN LEVEL 4-6; Start 04/01/16 at 18:00 Hydromorphone HCl (Dilaudid) 1 mg Q4H PRN IV SEVERE PAIN LEVEL 7-10 Last administered on 04/02/16 17:34; Admin Dose 1 MG; Start 04/01/16 at 18:00 Pantoprazole (Protonix Tab) 40 mg DAILY@06 PO Last administered on 04/02/16 05 :47; Admin Dose 40 MG; Start 04/02/16 at 06:00 Enoxaparin Sodium (Lovenox) 30 mg DAILY SC Last administered on 04/02/16 09:11 ; Admin Dose 30 MG; Start 04/01/16 at 18:00 Zolpidem Tartrate (Ambien) 5 mg HS PRN PO INSOMNIA Last administered on 22:16; Admin Dose 5 MG; Start 04/01/16 at 22:00 Diphenhydramine HCl 25 mg 25 mg Q6H PRN PO ITCHING Last administered on 06:49; Admin Dose 25 MG; Start 04/02/16 at 07:00 Dextrose/Sodium Chloride (D5-1/2ns) 1,000 ml @ 60 mls/hr [id number] IV Last administered on 04/02/16 17:33; Admin Dose 60 MLS/HR; Start 04/02/16 at 16:30 Al Hydrox/Mg Hydrox/Simethicone (Mag-Al Plus) 30 ml Q6H PRN PO GASTROINTESTINAL UPSET; Start 04/02/16 at 17:30 Simethicone (Mylicon) 80 mg Q6 PO Last administered on 04/02/16 17:33; Admin Dose 80 MG; Start 04/02/16 at 18:00 ANDI WADDELL MD Apr 02, 2016 18:53
[2016-04-02 20:00] VITALS: BP 140/86; PULSE 76; RESP 18
[2016-04-02] MEDS: ZOLPIDEM 5 MG TAB PO PRN (21:45)
[2016-04-03] MEDS: HYDROmorphONE 1 MG/ML SYG IV PRN ×6 (01:33→23:03)
[2016-04-03] MEDS: PANTOPRAZOLE (EC) 40 MG TAB PO SCH (05:54)
[2016-04-03 06:20] LABS: ADD SCAN DIFF NO
[2016-04-03 06:48] LABS: POTASSIUM 3.5 mmol/L (3.5-5.1)
[2016-04-03 06:50] LABS: BASOPHILS % 0.6 % (0.0-2.0); EOSINOPHILS # 0.1 10^3/ul (0.0-0.5); HEMATOCRIT 27.6 % (37.0-47.0); HEMOGLOBIN 8.8 g/dl (12.0-16.0); LYMPHOCYTES # 1.3 10^3/ul (0.8-2.9); LYMPHOCYTES % 36.7 % (15.0-51.0); MEAN CORPUSCULAR HGB CONC 31.9 g/dl (32.0-37.0); MEAN CORPUSCULAR VOLUME 100.4 fl (82.0-101.0); MEAN PLATELET VOLUME 10.3 fl (7.4-10.4); MONOCYTE # 0.4 10^3/ul (0.3-0.9); MONOCYTES % 11.8 % (0.0-11.0); NEUTROPHIL # 1.7 10^3/ul (1.6-7.5); NEUTROPHILS % 48.6 % (39.0-77.0); PLATELET COUNT 219 10^3/UL (140-415); RED BLOOD COUNT 2.75 10^6/ul (4.20-5.40); RED CELL DISTRIBUTION WIDTH 16.7 % (11.5-14.5); WHITE BLOOD COUNT 3.5 10^3/ul (4.8-10.8)
[2016-04-03 06:51] LABS: CREATININE 0.78 mg/dl (0.44-1.00)
[2016-04-03 06:52] LABS: CALCIUM 8.6 mg/dl (8.4-10.2)
[2016-04-03 07:48] VITALS: BP 136/95; RESP 20
[2016-04-03] MEDS: ONDANSETRON 4 MG INJ IV PRN ×2 (09:00→15:22)
[2016-04-03] MEDS: ENOXAPARIN 30 MG/0.3 ML SYG SC SCH (09:08)
[2016-04-03] MEDS: AL HYDROX/MG HYDROX/SIMETH 30 ML CUP PO PRN ×3 (10:03→23:07)
[2016-04-03] MEDS: DEXTROSE 5%-0.45% NACL 1,000 ML IV SCH (10:04)
--- NOTE | 2016-04-03 14:58 | PN ---
Date/Time of Note Date/Time of Note DATE: 04/03/16 TIME: 14:50 Assessment/Plan VTE Prophylaxis VTE Prophylaxis Intervention: SCD's Lines/Catheters IV Catheter Type (from Nrs): Port-A-Cath Urinary Cath still in place: No Assessment/Plan Chief Complaint/Hosp Course ASSESSMENT AND PLAN: - Progressive recurrent ovarian carcinoma. Status post chemotherapy. Dr. BOYCE is following in hematology/oncology consultation. Dr. Johnston is following from a surgery standpoint. Plan for surgery beginning next week. - Intractable abdominal pain and nausea secondary to #1. Continue Dilaudid p.r.n. for pain and Zofran p.r.n. for nausea. Continue Lovenox for deep venous thrombosis prophylaxis and Protonix for peptic ulcer disease prophylaxis. Further recommendations based on clinical course. Plan of care was discussed with Dr. Bravo. Problems: Subjective 24 Hr Interval Summary Free Text/Dictation Patient's pain is well controlled with Dilaudid, patient complains of mild nausea relieved by Zofran, denies any emesis. Exam/Review of Systems Vital Signs Vitals Vital Signs Date Time Temp Pulse Resp B/P Pulse Ox O2 Delivery O2 Flow Rate FiO2 04/03/16 07:48 97.6 87 20 136/95 97 04/02/16 20:00 Room Air Intake and Output 04/02/16 04/02/16 04/03/16 15:00 23:00 07:00 Intake Total 850 ml 920 ml Output Total 600 ml Balance 850 ml 320 ml Exam PHYSICAL ASSESSMENT: GENERAL: Well-developed, well-nourished female currently is awake, alert. HEENT: Head is atraumatic, normocephalic. NECK: Supple, no cervical lymphadenopathy, no thyromegaly. CHEST: Lungs clear bilaterally. There is no rhonchi, wheezes, rales noted. CARDIOVASCULAR: Normal S1, S2. No murmurs, gallops, clicks, rubs noted. ABDOMEN: Round, soft, nondistended. Patient has right lower quadrant tenderness and bilateral costovertebral angle tenderness. SKIN: There is no rash, petechiae noted. EXTREMITIES: No edema, clubbing, cyanosis. Pulses equal bilaterally 2+. SKIN: There is no rash or petechiae noted. NEUROLOGICAL: The patient is awake, alert and oriented x4. Results Result Diagram: 04/03/16 0600 04/03/16 0600 Results 24 hrs Laboratory Tests Test 04/03/16 05:18 04/03/16 06:00 CA 125 Antigen 39.6 H Anion Gap 13 Basophils # 0.0 Basophils % 0.6 Blood Urea Nitrogen 7 Calcium Level 8.6 Carbon Dioxide Level 28 Chloride Level 101 Creatinine 0.78 Eosinophils # 0.1 Eosinophils % 2.0 Glucose Level 111 Hematocrit 27.6 L Hemoglobin 8.8 L Lymphocytes # 1.3 Lymphocytes % 36.7 Mean Corpuscular Hemoglobin 32.0 Mean Corpuscular Hemoglobin Concent 31.9 L Mean Corpuscular Volume 100.4 Mean Platelet Volume 10.3 Monocytes # 0.4 Monocytes % 11.8 H Neutrophils # 1.7 Neutrophils % 48.6 Nucleated Red Blood Cells # 0.0 Nucleated Red Blood Cells % 0.0 Platelet Count 219 Potassium Level 3.5 Red Blood Count 2.75 L Red Cell Distribution Width 16.7 H Sodium Level 138 White Blood Count 3.5 L Medications Medications Current Medications Ondansetron HCl (Zofran Inj) 4 mg Q6H PRN IV NAUSEA AND/OR VOMITING Last administered on 04/03/16 09:00; Admin Dose 4 MG; Start 04/01/16 at 18:00 Acetaminophen/ Hydrocodone Bitart ([place] (5/325)) 1 tab Q6H PRN PO MODERATE PAIN LEVEL 4-6; Start 04/01/16 at 18:00 Hydromorphone HCl (Dilaudid) 1 mg Q4H PRN IV SEVERE PAIN LEVEL 7-10 Last administered on 04/03/16 14:27; Admin Dose 1 MG; Start 04/01/16 at 18:00 Pantoprazole (Protonix Tab) 40 mg DAILY@06 PO Last administered on 04/03/16 05 :54; Admin Dose 40 MG; Start 04/02/16 at 06:00 Enoxaparin Sodium (Lovenox) 30 mg DAILY SC Last administered on 04/03/16 09:08 ; Admin Dose 30 MG; Start 04/01/16 at 18:00 Zolpidem Tartrate (Ambien) 5 mg HS PRN PO INSOMNIA Last administered on 21:45; Admin Dose 5 MG; Start 04/01/16 at 22:00 Diphenhydramine HCl 25 mg 25 mg Q6H PRN PO ITCHING Last administered on 06:49; Admin Dose 25 MG; Start 04/02/16 at 07:00 Dextrose/Sodium Chloride (D5-1/2ns) 1,000 ml @ 60 mls/hr [id number] IV Last administered on 04/03/16 10:04; Admin Dose 60 MLS/HR; Start 04/02/16 at 16:30 Al Hydrox/Mg Hydrox/Simethicone (Mag-Al Plus) 30 ml Q6H PRN PO GASTROINTESTINAL UPSET Last administered on 04/03/16 10:03; Admin Dose 30 ML; Start 04/02/16 at 17:30 Simethicone (Mylicon) 80 mg Q6 PO Last administered on 04/03/16 05:54; Admin Dose 80 MG; Start 04/02/16 at 18:00 LARRY MEJIA Apr 03, 2016 14:58
[2016-04-03] MEDS ORDERED: 1/2 NS + KCL 20 MEQ 1,000 ML IV SCH (15:00)
--- NOTE | 2016-04-03 16:47 | CONS ---
Date/Time of Note Date/Time of Note DATE: 04/03/16 TIME: 16:46 Assessment/Plan Assessment/Plan Chief Complaint/Hosp Course 61-year-old female with stage IIIB ovarian cancer s/p surgery by Dr. Johnston in May 2015 and 6 cycles of carbo/taxol with persistently elevated CA125 (now 39.6), recently admitted to outside hospital with CT concerning for persistent disease, now admitted with 1 month of left flank pain. - Recent PET/CT 03-26-16 showed progressive disease with large volume of peripherally FDG avid loculated abdominal and pelvic ascites with increased omental caking and peritoneal nodularity noted throughout the abdomen and pelvis consistent with progressive recurrent ovarian carcinoma. with history of ovarian carcinoma with metastasis. - Per Dr. Johnston, ovarian cancer with recurrence would benefit from secondary CRS even though persistent disease because the problem is her chemo was delayed 3 months postop. Informed of need to start chemo nathan postop. Plan for secondary cytoreduction, possible bowel resection, possible fecal diversion. \ - Continue pain control per primary team. Problems: Consultation Date/Type/Reason Admit Date/Time Apr 02, 2016 at 10:07 Initial Consult Date 04/02/16 Type of Consultation: Hematology/Oncology 24 HR Interval Summary Free Text/Dictation Patient still has left flank pain, and states eating makes her abdominal pain worse. Exam/Review of Systems Vital Signs Vitals Vital Signs Date Time Temp Pulse Resp B/P Pulse Ox O2 Delivery O2 Flow Rate FiO2 04/03/16 07:48 97.6 87 20 136/95 97 04/02/16 20:00 Room Air Intake and Output 04/02/16 04/02/16 04/03/16 15:00 23:00 07:00 Intake Total 850 ml 920 ml Output Total 600 ml Balance 850 ml 320 ml Exam Constitutional: alert, oriented Head: atraumatic, normocephalic Eyes: nl conjunctiva Neck: non-tender, supple Respiratory: clear to auscultation Cardiovascular: regular rate and rhythm Gastrointestinal: soft, tender Musculoskeletal: nl extremities to inspection Results Result Diagram: 04/03/16 0600 04/03/16 0600 Results 24 hrs Laboratory Tests Test 04/03/16 05:18 04/03/16 06:00 CA 125 Antigen 39.6 H Anion Gap 13 Basophils # 0.0 Basophils % 0.6 Blood Urea Nitrogen 7 Calcium Level 8.6 Carbon Dioxide Level 28 Chloride Level 101 Creatinine 0.78 Eosinophils # 0.1 Eosinophils % 2.0 Glucose Level 111 Hematocrit 27.6 L Hemoglobin 8.8 L Lymphocytes # 1.3 Lymphocytes % 36.7 Mean Corpuscular Hemoglobin 32.0 Mean Corpuscular Hemoglobin Concent 31.9 L Mean Corpuscular Volume 100.4 Mean Platelet Volume 10.3 Monocytes # 0.4 Monocytes % 11.8 H Neutrophils # 1.7 Neutrophils % 48.6 Nucleated Red Blood Cells # 0.0 Nucleated Red Blood Cells % 0.0 Platelet Count 219 Potassium Level 3.5 Red Blood Count 2.75 L Red Cell Distribution Width 16.7 H Sodium Level 138 White Blood Count 3.5 L Medications Medications Current Medications Acetaminophen/ Hydrocodone Bitart ([place] (5/325)) 1 tab Q6H PRN PO MODERATE PAIN LEVEL 4-6; Start 04/01/16 at 18:00 Hydromorphone HCl (Dilaudid) 1 mg Q4H PRN IV SEVERE PAIN LEVEL 7-10 Last administered on 04/03/16 14:27; Admin Dose 1 MG; Start 04/01/16 at 18:00 Pantoprazole (Protonix Tab) 40 mg DAILY@06 PO Last administered on 04/03/16 05 :54; Admin Dose 40 MG; Start 04/02/16 at 06:00 Enoxaparin Sodium (Lovenox) 30 mg DAILY SC Last administered on 04/03/16 09:08 ; Admin Dose 30 MG; Start 04/01/16 at 18:00 Zolpidem Tartrate (Ambien) 5 mg HS PRN PO INSOMNIA Last administered on 21:45; Admin Dose 5 MG; Start 04/01/16 at 22:00 Diphenhydramine HCl (Benadryl) 25 mg Q6H PRN PO ITCHING Last administered on 06:49; Admin Dose 25 MG; Start 04/02/16 at 07:00 Al Hydrox/Mg Hydrox/Simethicone (Mag-Al Plus) 30 ml Q6H PRN PO GASTROINTESTINAL UPSET Last administered on 04/03/16 10:03; Admin Dose 30 ML; Start 04/02/16 at 17:30 Simethicone 80 mg 80 mg Q6 PO Last administered on 04/03/16 05:54; Admin Dose 80 MG; Start 04/02/16 at 18:00 Potassium Chloride/Sodium Chloride (1/2 NS + KCl 20 Meq) 1,000 ml @ 40 mls/hr Q24H IV Last administered on 04/03/16 15:21; Admin Dose 40 MLS/HR; Start 04/03 at 15:00 Ondansetron HCl (Zofran Inj) 4 mg Q4H PRN IV NAUSEA AND/OR VOMITING Last administered on 04/03/16 15:22; Admin Dose 4 MG; Start 04/03/16 at 15:00 TOSEE MD Apr 03, 2016 16:47
[2016-04-03 19:58] VITALS: BP 135/88; RESP 20
[2016-04-03] MEDS: D5W-0.45 NACL + KCL 20 MEQ 1,000 ML IV SCH (22:10)
[2016-04-03] MEDS: ZOLPIDEM 5 MG TAB PO PRN (23:11)
[2016-04-04] MEDS: HYDROmorphONE 1 MG/ML SYG IV PRN ×6 (03:28→23:42)
[2016-04-04 05:55] LABS: ADD SCAN DIFF NO
[2016-04-04 06:11] LABS: BASOPHILS % 0.3 % (0.0-2.0); EOSINOPHILS # 0.1 10^3/ul (0.0-0.5); EOSINOPHILS % 1.9 % (0.0-7.0); HEMATOCRIT 27.9 % (37.0-47.0); HEMOGLOBIN 8.9 g/dl (12.0-16.0); MEAN CORPUSCULAR HEMOGLOBIN 31.8 pg (29.0-33.0); MEAN CORPUSCULAR HGB CONC 31.9 g/dl (32.0-37.0); MEAN CORPUSCULAR VOLUME 99.6 fl (82.0-101.0); MEAN PLATELET VOLUME 9.9 fl (7.4-10.4); MONOCYTE # 0.5 10^3/ul (0.3-0.9); NEUTROPHIL # 2.1 10^3/ul (1.6-7.5); NEUTROPHILS % 56.5 % (39.0-77.0); PLATELET COUNT 281 10^3/UL (140-415); RED CELL DISTRIBUTION WIDTH 16.3 % (11.5-14.5); WHITE BLOOD COUNT 3.7 10^3/ul (4.8-10.8)
[2016-04-04] MEDS: PANTOPRAZOLE (EC) 40 MG TAB PO SCH (06:11)
[2016-04-04] MEDS: AL HYDROX/MG HYDROX/SIMETH 30 ML CUP PO PRN ×3 (06:16→23:48)
[2016-04-04 06:25] LABS: POTASSIUM 3.4 mmol/L (3.5-5.1)
[2016-04-04 06:28] LABS: CREATININE 0.78 mg/dl (0.44-1.00)
[2016-04-04 06:29] LABS: CALCIUM 8.7 mg/dl (8.4-10.2)
[2016-04-04 08:13] VITALS: BP 150/95; RESP 19
[2016-04-04] MEDS: D5W-0.45 NACL + KCL 20 MEQ 1,000 ML IV SCH ×2 (08:50→11:39)
[2016-04-04] MEDS: ENOXAPARIN 30 MG/0.3 ML SYG SC SCH (09:23)
--- NOTE | 2016-04-04 11:44 | PN ---
Date/Time of Note Date/Time of Note DATE: 04/04/16 TIME: 11:38 Assessment/Plan VTE Prophylaxis VTE Prophylaxis Intervention: LMWH Lines/Catheters IV C[facility] Type (from [facility] [id number] Urinary Cath still in place: No Assessment/Plan Assessment/Plan - Progressive recurrent ovarian carcinoma. Status post chemotherapy. Dr. BOYCE is following in hematology/oncology consultation. Dr. Johnston is following from a surgery standpoint. Plan for surgery beginning next week. - Intractable abdominal pain and nausea secondary to #1. Continue Dilaudid p.r.n. for pain and Zofran p.r.n. for nausea. - Hypokalemia- replet K, am labs. Continue Lovenox for deep venous thrombosis prophylaxis and Protonix for peptic ulcer disease prophylaxis. Further recommendations based on clinical course. Plan of care was discussed with Dr. Bravo. Subjective 24 Hr Interval Summary Constitutional: improved Eyes: no complaints ENT: no complaints Respiratory: no complaints Cardiovascular: no complaints Gastrointestinal: pain Genitourinary: no complaints Musculoskeletal: no complaints Skin: no complaints Neurologic: no complaints Endocrine: no complaints Lymphatic: no complaints Psychological: no complaints Exam/Review of Systems Vital Signs Vitals Vital Signs Date Time Temp Pulse Resp B/P Pulse Ox O2 Delivery O2 Flow Rate FiO2 04/04/16 08:13 98.4 83 19 150/95 97 04/02/16 20:00 Room Air Intake and Output 04/03/16 04/03/16 04/04/16 15:00 23:00 07:00 Intake Total 250 ml 1980 ml 525 ml Output Total 1250 ml Balance 250 ml 730 ml 525 ml Exam Constitutional: alert, well developed ENMT: nl external ears & nose Cardiovascular: nl pulses Gastrointestinal: soft, tender Musculoskeletal: nl extremities to inspection Extremities: normal pulses Neurological: nl mental status, nl speech, other Lymph: nontender Results Result Diagram: 04/04/16 0520 04/04/16 0508 Results 24 hrs Laboratory Tests Test 04/04/16 05:08 04/04/16 05:20 Anion Gap 12 Blood Urea Nitrogen 7 Calcium Level 8.7 Carbon Dioxide Level 27 Chloride Level 103 Creatinine 0.78 Glucose Level 125 Potassium Level 3.4 L Sodium Level 139 Basophils # 0.0 Basophils % 0.3 Eosinophils # 0.1 Eosinophils % 1.9 Hematocrit 27.9 L Hemoglobin 8.9 L Lymphocytes # 1.0 Lymphocytes % 27.0 Mean Corpuscular Hemoglobin 31.8 Mean Corpuscular Hemoglobin Concent 31.9 L Mean Corpuscular Volume 99.6 Mean Platelet Volume 9.9 Monocytes # 0.5 Monocytes % 14.0 H Neutrophils # 2.1 Neutrophils % 56.5 Nucleated Red Blood Cells # 0.0 Nucleated Red Blood Cells % 0.0 Platelet Count 281 # Red Blood Count 2.80 L Red Cell Distribution Width 16.3 H White Blood Count 3.7 L Medications Medications Current Medications Acetaminophen/ Hydrocodone Bitart ([place] (5/325)) 1 tab Q6H PRN PO MODERATE PAIN LEVEL 4-6; Start 04/01/16 at 18:00 Hydromorphone HCl (Dilaudid) 1 mg Q4H PRN IV SEVERE PAIN LEVEL 7-10 Last administered on 04/04/16 07:43; Admin Dose 1 MG; Start 04/01/16 at 18:00 Pantoprazole (Protonix Tab) 40 mg DAILY@06 PO Last administered on 04/04/16 06 :11; Admin Dose 40 MG; Start 04/02/16 at 06:00 Enoxaparin Sodium (Lovenox) 30 mg DAILY SC Last administered on 04/04/16 09:23 ; Admin Dose 30 MG; Start 04/01/16 at 18:00 Zolpidem Tartrate (Ambien) 5 mg HS PRN PO INSOMNIA Last administered on 23:11; Admin Dose 5 MG; Start 04/01/16 at 22:00 Diphenhydramine HCl (Benadryl) 25 mg Q6H PRN PO ITCHING Last administered on 06:49; Admin Dose 25 MG; Start 04/02/16 at 07:00 Al Hydrox/Mg Hydrox/Simethicone (Mag-Al Plus) 30 ml Q6H PRN PO GASTROINTESTINAL UPSET Last administered on 04/04/16 06:16; Admin Dose 30 ML; Start 04/02/16 at 17:30 Simethicone (Mylicon) 80 mg Q6 PO Last administered on 04/04/16 06:11; Admin Dose 80 MG; Start 04/02/16 at 18:00 Ondansetron HCl 4 mg 4 mg Q4H PRN IV NAUSEA AND/OR VOMITING Last administered on 04/03/16 15:22; Admin Dose 4 MG; Start 04/03/16 at 15:00 Potassium Chloride/Dextrose/ Sod Cl (D5-1/2ns + KCl 20 Meq) 1,000 ml @ 75 mls/ hr [id number] IV Last administered on 04/03/16 22:10; Admin Dose 75 MLS/HR; Start 04/03/16 at 19:30 BLAKE BRUMFIELD Apr 04, 2016 11:44
[2016-04-04] MEDS ORDERED: CLONIDINE 0.2 MG/24 HR PATCH TRANSDERM SCH (12:30)
[2016-04-04] MEDS ORDERED: POTASSIUM CHLORIDE (SR) 20 MEQ TAB PO STA (12:46)
[2016-04-04] MEDS: CLONIDINE 0.2 MG/24 HR PATCH TRANSDERM SCH (14:03)
--- NOTE | 2016-04-04 15:48 | CONS ---
Date/Time of Note Date/Time of Note DATE: 04/04/16 TIME: 15:48 Assessment/Plan Assessment/Plan Chief Complaint/Hosp Course 61-year-old female with stage IIIB ovarian cancer s/p surgery by Dr. Johnston in May 2015 and 6 cycles of carbo/taxol with persistently elevated CA125 (now 39.6), recently admitted to outside hospital with CT concerning for persistent disease, now admitted with 1 month of left flank pain. - Recent PET/CT 03-26-16 showed progressive disease with large volume of peripherally FDG avid loculated abdominal and pelvic ascites with increased omental caking and peritoneal nodularity noted throughout the abdomen and pelvis consistent with progressive recurrent ovarian carcinoma. with history of ovarian carcinoma with metastasis. - Per Dr. Johnston, ovarian cancer with recurrence would benefit from secondary CRS even though persistent disease because the problem is her chemo was delayed 3 months postop. Informed of need to start chemo nathan postop. Plan for secondary cytoreduction, possible bowel resection, possible fecal diversion early next week, possibly Wednesday perp atient. - Continue pain control per primary team. Problems: Consultation Date/Type/Reason Admit Date/Time Apr 02, 2016 at 10:07 Initial Consult Date 04/02/16 Type of Consultation: Hematology/Oncology 24 HR Interval Summary Free Text/Dictation Patient sitting up at the edge of bed, states pain improved. Exam/Review of Systems Vital Signs Vitals Vital Signs Date Time Temp Pulse Resp B/P Pulse Ox O2 Delivery O2 Flow Rate FiO2 04/04/16 08:13 98.4 83 19 150/95 97 04/02/16 20:00 Room Air Intake and Output 04/03/16 04/03/16 04/04/16 15:00 23:00 07:00 Intake Total 250 ml 1980 ml 525 ml Output Total 1250 ml Balance 250 ml 730 ml 525 ml Exam Constitutional: alert, oriented Head: atraumatic, normocephalic Eyes: nl conjunctiva Neck: non-tender, supple Respiratory: clear to auscultation Cardiovascular: regular rate and rhythm Gastrointestinal: soft, tender Musculoskeletal: nl extremities to inspection, mild edema bilaterally Results Result Diagram: 04/04/16 0520 04/04/16 0508 Results 24 hrs Laboratory Tests Test 04/04/16 05:08 04/04/16 05:20 Anion Gap 12 Blood Urea Nitrogen 7 Calcium Level 8.7 Carbon Dioxide Level 27 Chloride Level 103 Creatinine 0.78 Glucose Level 125 Potassium Level 3.4 L Sodium Level 139 Basophils # 0.0 Basophils % 0.3 Eosinophils # 0.1 Eosinophils % 1.9 Hematocrit 27.9 L Hemoglobin 8.9 L Lymphocytes # 1.0 Lymphocytes % 27.0 Mean Corpuscular Hemoglobin 31.8 Mean Corpuscular Hemoglobin Concent 31.9 L Mean Corpuscular Volume 99.6 Mean Platelet Volume 9.9 Monocytes # 0.5 Monocytes % 14.0 H Neutrophils # 2.1 Neutrophils % 56.5 Nucleated Red Blood Cells # 0.0 Nucleated Red Blood Cells % 0.0 Platelet Count 281 # Red Blood Count 2.80 L Red Cell Distribution Width 16.3 H White Blood Count 3.7 L Medications Medications Current Medications Acetaminophen/ Hydrocodone Bitart ([place] (5/325)) 1 tab Q6H PRN PO MODERATE PAIN LEVEL 4-6; Start 04/01/16 at 18:00 Hydromorphone HCl (Dilaudid) 1 mg Q4H PRN IV SEVERE PAIN LEVEL 7-10 Last administered on 04/04/16 15:46; Admin Dose 1 MG; Start 04/01/16 at 18:00 Pantoprazole (Protonix Tab) 40 mg DAILY@06 PO Last administered on 04/04/16 06 :11; Admin Dose 40 MG; Start 04/02/16 at 06:00 Enoxaparin Sodium (Lovenox) 30 mg DAILY SC Last administered on 04/04/16 09:23 ; Admin Dose 30 MG; Start 04/01/16 at 18:00 Zolpidem Tartrate (Ambien) 5 mg HS PRN PO INSOMNIA Last administered on 23:11; Admin Dose 5 MG; Start 04/01/16 at 22:00 Diphenhydramine HCl (Benadryl) 25 mg Q6H PRN PO ITCHING Last administered on 06:49; Admin Dose 25 MG; Start 04/02/16 at 07:00 Al Hydrox/Mg Hydrox/Simethicone (Mag-Al Plus) 30 ml Q6H PRN PO GASTROINTESTINAL UPSET Last administered on 04/04/16 06:16; Admin Dose 30 ML; Start 04/02/16 at 17:30 Simethicone (Mylicon) 80 mg Q6 PO Last administered on 04/04/16 11:44; Admin Dose 80 MG; Start 04/02/16 at 18:00 Ondansetron HCl 4 mg 4 mg Q4H PRN IV NAUSEA AND/OR VOMITING Last administered on 04/03/16 15:22; Admin Dose 4 MG; Start 04/03/16 at 15:00 Potassium Chloride/Dextrose/ Sod Cl (D5-1/2ns + KCl 20 Meq) 1,000 ml @ 75 mls/ hr [id number] IV Last administered on 04/04/16 11:39; Admin Dose 75 MLS/HR; Start 04/03/16 at 19:30 Clonidine HCl (Catapres-Tts 2 Patch) 1 patch Q7D TRANSDERM Last administered on 04/04/16 14:03; Admin Dose 1 PATCH; Start 04/04/16 at 13:15 TOSEE MD Apr 04, 2016 15:48
[2016-04-04] MEDS: ONDANSETRON 4 MG INJ IV PRN (18:00)
--- NOTE | 2016-04-04 18:22 | PN ---
Date/Time of Note Date/Time of Note DATE: 04/04/16 TIME: 18:16 Assessment/Plan VTE Prophylaxis VTE Prophylaxis Intervention: LMWH Lines/Catheters IV [facility] Type ([facility] erlinda cath Urinary Cath still in place: No Assessment/Plan Chief Complaint/Hosp Course Ovarian cancer with recurrence would benefit from secondary CRS even though persistent disease because the problem is her chemo was delayed 3 months postop. Informed of need to start chemo nathan postop and will call [facility] Problems: Assessment/Plan Start bowel prep a.m. and surgery Wed. Subjective 24 Hr Interval Summary Free Text/Dictation S- Overall some increase in pain, slight nausea. O- Resp- clear CVS- NSR Abd- some distension and epigastric tender Ext- NT mild edema A/P- Surgery scheduled on Wednesday; will start bowel prep tomorrow and probably transfuse. Exam/Review of Systems Vital Signs Vitals Vital Signs Date Time Temp Pulse Resp B/P Pulse Ox O2 Delivery O2 Flow Rate FiO2 04/04/16 08:13 98.4 83 19 150/95 97 04/02/16 20:00 Room Air Intake and Output 04/03/16 04/03/16 04/04/16 15:00 23:00 07:00 Intake Total 250 ml 1980 ml 525 ml Output Total 1250 ml Balance 250 ml 730 ml 525 ml Results Result Diagram: 04/04/16 0520 04/04/16 0508 Results 24 hrs Laboratory Tests Test 04/04/16 05:08 04/04/16 05:20 Anion Gap 12 Blood Urea Nitrogen 7 Calcium Level 8.7 Carbon Dioxide Level 27 Chloride Level 103 Creatinine 0.78 Glucose Level 125 Potassium Level 3.4 L Sodium Level 139 Basophils # 0.0 Basophils % 0.3 Eosinophils # 0.1 Eosinophils % 1.9 Hematocrit 27.9 L Hemoglobin 8.9 L Lymphocytes # 1.0 Lymphocytes % 27.0 Mean Corpuscular Hemoglobin 31.8 Mean Corpuscular Hemoglobin Concent 31.9 L Mean Corpuscular Volume 99.6 Mean Platelet Volume 9.9 Monocytes # 0.5 Monocytes % 14.0 H Neutrophils # 2.1 Neutrophils % 56.5 Nucleated Red Blood Cells # 0.0 Nucleated Red Blood Cells % 0.0 Platelet Count 281 # Red Blood Count 2.80 L Red Cell Distribution Width 16.3 H White Blood Count 3.7 L Medications Medications Current Medications Acetaminophen/ Hydrocodone Bitart ([place] (5/325)) 1 tab Q6H PRN PO MODERATE PAIN LEVEL 4-6; Start 04/01/16 at 18:00 Hydromorphone HCl (Dilaudid) 1 mg Q4H PRN IV SEVERE PAIN LEVEL 7-10 Last administered on 04/04/16 15:46; Admin Dose 1 MG; Start 04/01/16 at 18:00 Pantoprazole (Protonix Tab) 40 mg DAILY@06 PO Last administered on 04/04/16 06 :11; Admin Dose 40 MG; Start 04/02/16 at 06:00 Enoxaparin Sodium (Lovenox) 30 mg DAILY SC Last administered on 04/04/16 09:23 ; Admin Dose 30 MG; Start 04/01/16 at 18:00 Zolpidem Tartrate (Ambien) 5 mg HS PRN PO INSOMNIA Last administered on 23:11; Admin Dose 5 MG; Start 04/01/16 at 22:00 Diphenhydramine HCl (Benadryl) 25 mg Q6H PRN PO ITCHING Last administered on 06:49; Admin Dose 25 MG; Start 04/02/16 at 07:00 Al Hydrox/Mg Hydrox/Simethicone (Mag-Al Plus) 30 ml Q6H PRN PO GASTROINTESTINAL UPSET Last administered on 04/04/16 17:10; Admin Dose 30 ML; Start 04/02/16 at 17:30 Simethicone (Mylicon) 80 mg Q6 PO Last administered on 04/04/16 11:44; Admin Dose 80 MG; Start 04/02/16 at 18:00 Ondansetron HCl 4 mg 4 mg Q4H PRN IV NAUSEA AND/OR VOMITING Last administered on 04/04/16 18:00; Admin Dose 4 MG; Start 04/03/16 at 15:00 Potassium Chloride/Dextrose/ Sod Cl (D5-1/2ns + KCl 20 Meq) 1,000 ml @ 75 mls/ hr [id number] IV Last administered on 04/04/16 11:39; Admin Dose 75 MLS/HR; Start 04/03/16 at 19:30 Clonidine HCl (Catapres-Tts 2 Patch) 1 patch Q7D TRANSDERM Last administered on 04/04/16t 14:03; Admin Dose 1 PATCH; Start 04/04/16 at 13:15 ANDI WADDELL MD Apr 04, 2016 18:22
[2016-04-04] MEDS ORDERED: POTASSIUM CHLORIDE 20 MEQ in SOD CHLORIDE 0.9% 100 ML IVPB ONE (19:30)
[2016-04-04 19:41] VITALS: BP 142/96; RESP 20
[2016-04-04] MEDS: ZOLPIDEM 5 MG TAB PO PRN (23:48)
[2016-04-05] MEDS: D5W-0.45 NACL + KCL 20 MEQ 1,000 ML IV SCH ×2 (03:16→16:31)
[2016-04-05] MEDS: HYDROmorphONE 1 MG/ML SYG IV PRN ×5 (04:29→20:30)
[2016-04-05 06:13] LABS: ADD SCAN DIFF NO
[2016-04-05 06:21] LABS: INR 1.04; PROTIME 13.6 Sec (12.2-14.2); PT RATIO 1.1
[2016-04-05 06:22] LABS: BASOPHILS % 0.6 % (0.0-2.0); EOSINOPHILS # 0.1 10^3/ul (0.0-0.5); EOSINOPHILS % 1.4 % (0.0-7.0); HEMATOCRIT 27.9 % (37.0-47.0); HEMOGLOBIN 9.1 g/dl (12.0-16.0); LYMPHOCYTES % 28.3 % (15.0-51.0); MEAN CORPUSCULAR HEMOGLOBIN 32.7 pg (29.0-33.0); MEAN CORPUSCULAR HGB CONC 32.6 g/dl (32.0-37.0); MEAN CORPUSCULAR VOLUME 100.4 fl (82.0-101.0); MEAN PLATELET VOLUME 9.9 fl (7.4-10.4); MONOCYTE # 0.5 10^3/ul (0.3-0.9); NEUTROPHILS % 56.4 % (39.0-77.0); PLATELET COUNT 296 10^3/UL (140-415); RED BLOOD COUNT 2.78 10^6/ul (4.20-5.40); RED CELL DISTRIBUTION WIDTH 16.8 % (11.5-14.5); WHITE BLOOD COUNT 3.5 10^3/ul (4.8-10.8)
[2016-04-05 06:27] LABS: CREATININE 0.74 mg/dl (0.44-1.00)
[2016-04-05 06:28] LABS: CALCIUM 8.6 mg/dl (8.4-10.2)
[2016-04-05] MEDS: PANTOPRAZOLE (EC) 40 MG TAB PO SCH (06:51)
[2016-04-05] MEDS: ENOXAPARIN 30 MG/0.3 ML SYG SC SCH (08:21)
[2016-04-05] MEDS: AL HYDROX/MG HYDROX/SIMETH 30 ML CUP PO PRN ×2 (08:23→18:49)
--- NOTE | 2016-04-05 10:33 | PN ---
Date/Time of Note Date/Time of Note DATE: 04/05/16 TIME: 10:24 Assessment/Plan VTE Prophylaxis VTE Prophylaxis Intervention: LMWH Lines/Catheters IV C[facility]ter Type (from [facility]): PORT-A-CATH Urinary Cath still in place: No Assessment/Plan Assessment/Plan - Progressive recurrent ovarian carcinoma. Status post chemotherapy. -per Dr. BOYCE in hematology/oncology consultation. Dr. Johnston is following from a surgery standpoint. Plan for surgery beginning next week. - Intractable abdominal pain and nausea secondary to #1. Continue Dilaudid p.r.n. for pain and Zofran p.r.n. for nausea. - per [facility] oncology - Hypokalemia- resolved, am labs. Continue Lovenox for deep venous thrombosis prophylaxis and Protonix for peptic ulcer disease prophylaxis. Further recommendations based on clinical course. Plan of care was discussed with Dr. Bravo. Subjective 24 Hr Interval Summary Constitutional: improved Eyes: no complaints ENT: no complaints Respiratory: no complaints Cardiovascular: no complaints Gastrointestinal: other (abdominal pain, nausea, bloating better with meds) , pain Genitourinary: no complaints Musculoskeletal: no complaints Skin: no complaints Neurologic: no complaints Lymphatic: no complaints Psychological: nl mood/affect Immunologic: no complaints Exam/Review of Systems Vital Signs Vitals Vital Signs Date Time Temp Pulse Resp B/P Pulse Ox O2 Delivery O2 Flow Rate FiO2 04/04/16 19:41 98.7 87 20 142/96 94 04/02/16 20:00 Room Air Intake and Output 04/04/16 04/04/16 04/05/16 15:00 23:00 07:00 Intake Total 475 ml 1315 ml 1610 ml Balance 475 ml 1315 ml 1610 ml Exam Constitutional: alert, oriented, well developed Psych: nl mood/affect Head: atraumatic Eyes: EOMI, nl sclera ENMT: nl external ears & nose Neck: non-tender Respiratory: clear to auscultation Cardiovascular: nl pulses Gastrointestinal: non-tender, soft Musculoskeletal: nl extremities to inspection Extremities: normal pulses Neurological: nl mental status, nl speech Skin: nl turgor Lymph: nontender Results Result Diagram: 04/05/16 0529 04/05/16 0529 Results 24 hrs Laboratory Tests Test 04/05/16 05:29 Anion Gap 12 Basophils # 0.0 Basophils % 0.6 Blood Urea Nitrogen 7 Calcium Level 8.6 Carbon Dioxide Level 26 Chloride Level 104 Creatinine 0.74 Eosinophils # 0.1 Eosinophils % 1.4 Glucose Level 126 Hematocrit 27.9 L Hemoglobin 9.1 L INR International Normalized Ratio 1.04 Lymphocytes # 1.0 Lymphocytes % 28.3 Mean Corpuscular Hemoglobin 32.7 Mean Corpuscular Hemoglobin Concent 32.6 Mean Corpuscular Volume 100.4 Mean Platelet Volume 9.9 Monocytes # 0.5 Monocytes % 13.0 H Neutrophils # 2.0 Neutrophils % 56.4 Nucleated Red Blood Cells # 0.0 Nucleated Red Blood Cells % 0.0 Platelet Count 296 Potassium Level 4.0 Prothrombin Time 13.6 Prothrombin Time Ratio 1.1 Red Blood Count 2.78 L Red Cell Distribution Width 16.8 H Sodium Level 138 White Blood Count 3.5 L Medications Medications Current Medications Acetaminophen/ Hydrocodone Bitart ([place] (5/325)) 1 tab Q6H PRN PO MODERATE PAIN LEVEL 4-6; Start 04/01/16 at 18:00 Hydromorphone HCl (Dilaudid) 1 mg Q4H PRN IV SEVERE PAIN LEVEL 7-10 Last administered on 04/05/16 08:20; Admin Dose 1 MG; Start 04/01/16 at 18:00 Pantoprazole (Protonix Tab) 40 mg DAILY@06 PO Last administered on 04/05/16 06 :51; Admin Dose 40 MG; Start 04/02/16 at 06:00 Enoxaparin Sodium (Lovenox) 30 mg DAILY SC Last administered on 04/05/16 08:21 ; Admin Dose 30 MG; Start 04/01/16 at 18:00 Zolpidem Tartrate (Ambien) 5 mg HS PRN PO INSOMNIA Last administered on 23:48; Admin Dose 5 MG; Start 04/01/16 at 22:00 Diphenhydramine HCl (Benadryl) 25 mg Q6H PRN PO ITCHING Last administered on 06:49; Admin Dose 25 MG; Start 04/02/16 at 07:00 Al Hydrox/Mg Hydrox/Simethicone (Mag-Al Plus) 30 ml Q6H PRN PO GASTROINTESTINAL UPSET Last administered on 04/05/16 08:23; Admin Dose 30 ML; Start 04/02/16 at 17:30 Simethicone (Mylicon) 80 mg Q6 PO Last administered on 04/05/16 06:51; Admin Dose 80 MG; Start 04/02/16 at 18:00 Ondansetron HCl 4 mg 4 mg Q4H PRN IV NAUSEA AND/OR VOMITING Last administered on 04/04/16 18:00; Admin Dose 4 MG; Start 04/03/16 at 15:00 Potassium Chloride/Dextrose/ Sod Cl (D5-1/2ns + KCl 20 Meq) 1,000 ml @ 75 mls/ hr [id number] IV Last administered on 04/05/16 03:16; Admin Dose 75 MLS/HR; Start 04/03/16 at 19:30 Clonidine HCl (Catapres-Tts 2 Patch) 1 patch Q7D TRANSDERM Last administered on 04/04/16 14:03; Admin Dose 1 PATCH; Start 04/04/16 at 13:15 BLAKE BRUMFIELD Apr 05, 2016 10:32
[2016-04-05] MEDS: ONDANSETRON 4 MG INJ IV PRN ×2 (12:39→18:02)
[2016-04-05] MEDS ORDERED: PEG/ELECTROLYTES 4L BTL PO ONE (16:30)
[2016-04-05] MEDS: HYDROCODONE/APAP (5/325) TAB PO PRN (18:49)
[2016-04-05 19:34] VITALS: BP 136/93; RESP 20
[2016-04-06] MEDS: HYDROmorphONE 1 MG/ML SYG IV PRN ×8 (00:12→22:45)
[2016-04-06] MEDS: AL HYDROX/MG HYDROX/SIMETH 30 ML CUP PO PRN ×4 (00:13→19:40)
[2016-04-06] MEDS: HYDROCODONE/APAP (5/325) TAB PO PRN ×2 (02:06→18:13)
[2016-04-06] MEDS: PANTOPRAZOLE (EC) 40 MG TAB PO SCH (05:24)
[2016-04-06] MEDS: D5W-0.45 NACL + KCL 20 MEQ 1,000 ML IV SCH ×3 (05:24→19:41)
[2016-04-06 05:55] LABS: ADD SCAN DIFF NO
[2016-04-06 06:00] LABS: BASOPHILS % 0.2 % (0.0-2.0); EOSINOPHILS % 0.7 % (0.0-7.0); HEMATOCRIT 28.8 % (37.0-47.0); HEMOGLOBIN 9.3 g/dl (12.0-16.0); LYMPHOCYTES % 22.7 % (15.0-51.0); MEAN CORPUSCULAR HEMOGLOBIN 32.1 pg (29.0-33.0); MEAN CORPUSCULAR HGB CONC 32.3 g/dl (32.0-37.0); MEAN CORPUSCULAR VOLUME 99.3 fl (82.0-101.0); MEAN PLATELET VOLUME 9.7 fl (7.4-10.4); MONOCYTE # 0.5 10^3/ul (0.3-0.9); MONOCYTES % 10.1 % (0.0-11.0); NEUTROPHIL # 2.9 10^3/ul (1.6-7.5); NEUTROPHILS % 66.1 % (39.0-77.0); PLATELET COUNT 314 10^3/UL (140-415); RED CELL DISTRIBUTION WIDTH 16.4 % (11.5-14.5); WHITE BLOOD COUNT 4.4 10^3/ul (4.8-10.8)
[2016-04-06 06:28] LABS: CALCIUM 8.7 mg/dl (8.4-10.2); CREATININE 0.74 mg/dl (0.44-1.00)
[2016-04-06 07:36] VITALS: BP 145/90; RESP 20
[2016-04-06] MEDS: ONDANSETRON 4 MG INJ IV PRN ×2 (08:52→20:56)
[2016-04-06] MEDS: ENOXAPARIN 30 MG/0.3 ML SYG SC SCH (09:39)
--- NOTE | 2016-04-06 12:54 | CONS ---
Date/Time of Note Date/Time of Note DATE: 04/06/16 TIME: 12:52 Assessment/Plan Assessment/Plan Chief Complaint/Hosp Course 61-year-old female with stage IIIB ovarian cancer s/p surgery by Dr. Johnston in May 2015 and 6 cycles of carbo/taxol with persistently elevated CA125 (now 39.6), recently admitted to outside hospital with CT concerning for persistent disease, now admitted with 1 month of left flank pain. - Recent PET/CT 03-26-16 showed progressive disease with large volume of peripherally FDG avid loculated abdominal and pelvic ascites with increased omental caking and peritoneal nodularity noted throughout the abdomen and pelvis consistent with progressive recurrent ovarian carcinoma. with history of ovarian carcinoma with metastasis. - Per Dr. Johnston, ovarian cancer with recurrence would benefit from secondary CRS even though persistent disease because the problem is her chemo was delayed 3 months postop. Informed of need to start chemo nathan postop. Plan for secondary cytoreduction, possible bowel resection, possible fecal diversion early next week, possibly Wednesday perp patient. -plan to start adjuvant chemotherapy in house 1 week post op or when cleared by [facility] onc. plan to given 1 dose of Gemcitabine/ Cisplatin - Continue pain control per primary team. Problems: Consultation Date/Type/Reason Admit Date/Time Apr 02, 2016 at 10:07 Initial Consult Date 04/02/16 Type of Consultation: Hematology/Oncology Reason for Consultation ovarian cancer Referring Provider: BRIAN ZAZUETA MD 24 HR Interval Summary Free Text/Dictation pt still with intractable pain. scheduled for CRS tomorrow. Exam/Review of Systems Vital Signs Vitals Vital Signs Date Time Temp Pulse Resp B/P Pulse Ox O2 Delivery O2 Flow Rate FiO2 04/06/16 07:36 98.0 87 20 145/90 98 04/02/16 20:00 Room Air Intake and Output 04/05/16 04/05/16 04/06/16 15:00 23:00 07:00 Intake Total 1470 ml 1185 ml Balance 1470 ml 1185 ml Exam Constitutional: alert, oriented Psych: no complaints Head: normocephalic Eyes: nl conjunctiva ENMT: nl external ears & nose Neck: non-tender, supple Respiratory: clear to auscultation, normal air movement Cardiovascular: regular rate and rhythm Gastrointestinal: soft Musculoskeletal: nl extremities to inspection, nl gait and stance Extremities: normal pulses Results Result Diagram: 04/06/16 0510 04/06/16 0510 Results 24 hrs Laboratory Tests Test 04/06/16 05:10 Anion Gap 13 Basophils # 0.0 Basophils % 0.2 Blood Urea Nitrogen 8 Calcium Level 8.7 Carbon Dioxide Level 26 Chloride Level 104 Creatinine 0.74 Eosinophils # 0.0 Eosinophils % 0.7 Glucose Level 141 Hematocrit 28.8 L Hemoglobin 9.3 L Lymphocytes # 1.0 Lymphocytes % 22.7 Mean Corpuscular Hemoglobin 32.1 Mean Corpuscular Hemoglobin Concent 32.3 Mean Corpuscular Volume 99.3 Mean Platelet Volume 9.7 Monocytes # 0.5 Monocytes % 10.1 Neutrophils # 2.9 Neutrophils % 66.1 Nucleated Red Blood Cells # 0.0 Nucleated Red Blood Cells % 0.0 Platelet Count 314 Potassium Level 4.0 Red Blood Count 2.90 L Red Cell Distribution Width 16.4 H Sodium Level 139 White Blood Count 4.4 #L Medications Medications Current Medications Acetaminophen/ Hydrocodone Bitart ([place] (5/325)) 1 tab Q6H PRN PO MODERATE PAIN LEVEL 4-6 Last administered on 04/06/16 02:06; Admin Dose 1 TAB; Start at 18:00 Pantoprazole (Protonix Tab) 40 mg DAILY@06 PO Last administered on 04/06/16 05 :24; Admin Dose 40 MG; Start 04/02/16 at 06:00 Enoxaparin Sodium (Lovenox) 30 mg DAILY SC Last administered on 04/06/16 09:39 ; Admin Dose 30 MG; Start 04/01/16 at 18:00 Zolpidem Tartrate (Ambien) 5 mg HS PRN PO INSOMNIA Last administered on 23:48; Admin Dose 5 MG; Start 04/01/16 at 22:00 Diphenhydramine HCl (Benadryl) 25 mg Q6H PRN PO ITCHING Last administered on 06:49; Admin Dose 25 MG; Start 04/02/16 at 07:00 Al Hydrox/Mg Hydrox/Simethicone (Mag-Al Plus) 30 ml Q6H PRN PO GASTROINTESTINAL UPSET Last administered on 04/06/16 00:21; Admin Dose 30 ML; Start 04/02/16 at 17:30 Simethicone (Mylicon) 80 mg Q6 PO Last administered on 04/06/16 05:24; Admin Dose 80 MG; Start 04/02/16 at 18:00 Ondansetron HCl 4 mg 4 mg Q4H PRN IV NAUSEA AND/OR VOMITING Last administered on 04/06/16 08:52; Admin Dose 4 MG; Start 04/03/16 at 15:00 Potassium Chloride/Dextrose/ Sod Cl (D5-1/2ns + KCl 20 Meq) 1,000 ml @ 75 mls/ hr [id number] IV Last administered on 04/06/16 05:24; Admin Dose 75 MLS/HR; Start 04/03/16 at 19:30 Clonidine HCl (Catapres-Tts 2 Patch) 1 patch Q7D TRANSDERM Last administered on 04/04/16 14:03; Admin Dose 1 PATCH; Start 04/04/16 at 13:15 Hydromorphone HCl (Dilaudid) 1 mg Q3 PRN IV SEVERE PAIN LEVEL 7-10 Last administered on 04/06/16 09:35; Admin Dose 1 MG; Start 04/06/16 at 00:00 DEMETRA COLUNGA M.D. Apr 06, 2016 12:54
--- NOTE | 2016-04-06 18:42 | PN ---
Date/Time of Note Date/Time of Note DATE: 04/06/16 TIME: 18:40 Assessment/Plan VTE Prophylaxis VTE Prophylaxis Intervention: SCD's Lines/Catheters IV Catheter Type (from Nrs): port a cath Urinary Cath still in place: No Assessment/Plan Chief Complaint/Hosp Course ASSESSMENT AND PLAN: - Progressive recurrent ovarian carcinoma. Status post chemotherapy. Dr. Foy is following in hematology/oncology consultation. Dr. Johntson is following from a surgery standpoint. Plan for surgery tomorrow. - Intractable abdominal pain and nausea secondary to #1. Continue Dilaudid p.r.n. for pain and Zofran p.r.n. for nausea. Continue Lovenox for deep venous thrombosis prophylaxis and Protonix for peptic ulcer disease prophylaxis. Further recommendations based on clinical course. Plan of care was discussed with Dr. Bravo. Problems: Subjective 24 Hr Interval Summary Free Text/Dictation Patient complains of mild bilateral lower extremities edema, denies any's's tenderness. Pain is well controlled. Patient denies any nausea vomiting. Exam/Review of Systems Vital Signs Vitals Vital Signs Date Time Temp Pulse Resp B/P Pulse Ox O2 Delivery O2 Flow Rate FiO2 04/06/16 07:36 98.0 87 20 145/90 98 04/02/16 20:00 Room Air Intake and Output 04/05/16 04/05/16 04/06/16 15:00 23:00 07:00 Intake Total 1470 ml 1185 ml Balance 1470 ml 1185 ml Exam PHYSICAL ASSESSMENT: GENERAL: Well-developed, well-nourished female currently is awake, alert. HEENT: Head is atraumatic, normocephalic. NECK: Supple, no cervical lymphadenopathy, no thyromegaly. CHEST: Lungs clear bilaterally. There is no rhonchi, wheezes, rales noted. CARDIOVASCULAR: Normal S1, S2. No murmurs, gallops, clicks, rubs noted. ABDOMEN: Round, soft, nondistended. Patient has right lower quadrant tenderness and bilateral costovertebral angle tenderness. SKIN: There is no rash, petechiae noted. EXTREMITIES: No edema, clubbing, cyanosis. Pulses equal bilaterally 2+. Mild edema. SKIN: There is no rash or petechiae noted. NEUROLOGICAL: The patient is awake, alert and oriented x4. Results Result Diagram: 04/06/1650904/06/1610 Results 24 hrs Laboratory Tests Test 04/06/16 05:10 Anion Gap 13 Basophils # 0.0 Basophils % 0.2 Blood Urea Nitrogen 8 Calcium Level 8.7 Carbon Dioxide Level 26 Chloride Level 104 Creatinine 0.74 Eosinophils # 0.0 Eosinophils % 0.7 Glucose Level 141 Hematocrit 28.8 L Hemoglobin 9.3 L Lymphocytes # 1.0 Lymphocytes % 22.7 Mean Corpuscular Hemoglobin 32.1 Mean Corpuscular Hemoglobin Concent 32.3 Mean Corpuscular Volume 99.3 Mean Platelet Volume 9.7 Monocytes # 0.5 Monocytes % 10.1 Neutrophils # 2.9 Neutrophils % 66.1 Nucleated Red Blood Cells # 0.0 Nucleated Red Blood Cells % 0.0 Platelet Count 314 Potassium Level 4.0 Red Blood Count 2.90 L Red Cell Distribution Width 16.4 H Sodium Level 139 White Blood Count 4.4 #L Medications Medications Current Medications Acetaminophen/ Hydrocodone Bitart ([place] (5/325)) 1 tab Q6H PRN PO MODERATE PAIN LEVEL 4-6 Last administered on 04/06/16 18:13; Admin Dose 1 TAB; Start at 18:00 Pantoprazole (Protonix Tab) 40 mg DAILY@06 PO Last administered on 04/06/16 05 :24; Admin Dose 40 MG; Start 04/02/16 at 06:00 Enoxaparin Sodium (Lovenox) 30 mg DAILY SC Last administered on 04/06/16 09:39 ; Admin Dose 30 MG; Start 04/01/16 at 18:00 Zolpidem Tartrate (Ambien) 5 mg HS PRN PO INSOMNIA Last administered on 23:48; Admin Dose 5 MG; Start 04/01/16 at 22:00 Diphenhydramine HCl (Benadryl) 25 mg Q6H PRN PO ITCHING Last administered on 06:49; Admin Dose 25 MG; Start 04/02/16 at 07:00 Al Hydrox/Mg Hydrox/Simethicone (Mag-Al Plus) 30 ml Q6H PRN PO GASTROINTESTINAL UPSET Last administered on 04/06/16 12:58; Admin Dose 30 ML; Start 04/02/16 at 17:30 Simethicone (Mylicon) 80 mg Q6 PO Last administered on 04/06/16 18:09; Admin Dose 80 MG; Start 04/02/16 at 18:00 Ondansetron HCl 4 mg 4 mg Q4H PRN IV NAUSEA AND/OR VOMITING Last administered on 04/06/16 08:52; Admin Dose 4 MG; Start 04/03/16 at 15:00 Potassium Chloride/Dextrose/ Sod Cl (D5-1/2ns + KCl 20 Meq) 1,000 ml @ 75 mls/ hr [id number] IV Last administered on 04/06/16 05:24; Admin Dose 75 MLS/HR; Start 04/03/16 at 19:30 Clonidine HCl (Catapres-Tts 2 Patch) 1 patch Q7D TRANSDERM Last administered on 04/04/16 14:03; Admin Dose 1 PATCH; Start 04/04/16 at 13:15 Hydromorphone HCl (Dilaudid) 1 mg Q3 PRN IV SEVERE PAIN LEVEL 7-10 Last administered on 04/06/16 16:02; Admin Dose 1 MG; Start 04/06/16 at 00:00 LARRY MEJIA Apr 06, 2016 18:42
[2016-04-06] MEDS ORDERED: FUROSEMIDE 20 MG INJ IV ONE (19:00)
[2016-04-06 19:55] VITALS: BP 121/80; RESP 20
[2016-04-07] VITALS (15 sets, daily range): BP systolic 73–140; BP diastolic 46–79; PULSE 64–84; RESP 0–28
[2016-04-07] MEDS: HYDROmorphONE 1 MG/ML SYG IV PRN ×5 (02:05→14:21)
[2016-04-07] MEDS: ONDANSETRON 4 MG INJ IV PRN ×2 (04:55→12:38)
[2016-04-07 05:03] LABS: ADD SCAN DIFF NO
[2016-04-07 05:19] LABS: BASOPHILS % 0.3 % (0.0-2.0); EOSINOPHILS # 0.1 10^3/ul (0.0-0.5); EOSINOPHILS % 3.4 % (0.0-7.0); HEMOGLOBIN 8.7 g/dl (12.0-16.0); LYMPHOCYTES # 0.9 10^3/ul (0.8-2.9); LYMPHOCYTES % 29.1 % (15.0-51.0); MEAN CORPUSCULAR HEMOGLOBIN 31.9 pg (29.0-33.0); MEAN CORPUSCULAR HGB CONC 32.2 g/dl (32.0-37.0); MEAN CORPUSCULAR VOLUME 98.9 fl (82.0-101.0); MEAN PLATELET VOLUME 9.7 fl (7.4-10.4); MONOCYTE # 0.3 10^3/ul (0.3-0.9); MONOCYTES % 10.6 % (0.0-11.0); NEUTROPHIL # 1.8 10^3/ul (1.6-7.5); NEUTROPHILS % 56.3 % (39.0-77.0); PLATELET COUNT 295 10^3/UL (140-415); RED BLOOD COUNT 2.73 10^6/ul (4.20-5.40); RED CELL DISTRIBUTION WIDTH 16.5 % (11.5-14.5); WHITE BLOOD COUNT 3.2 10^3/ul (4.8-10.8)
[2016-04-07 05:37] LABS: POTASSIUM 3.7 mmol/L (3.5-5.1)
[2016-04-07 05:39] LABS: CREATININE 0.85 mg/dl (0.44-1.00)
[2016-04-07 05:40] LABS: CALCIUM 8.5 mg/dl (8.4-10.2)
[2016-04-07] MEDS: PANTOPRAZOLE (EC) 40 MG TAB PO SCH (06:00)
[2016-04-07] MEDS ORDERED: metroNIDAZOLE 500 MG/100 ML NS IVPB ONE (07:00)
[2016-04-07] MEDS ORDERED: CEFAZOLIN 1 GM INJ ONE (07:00)
[2016-04-07] MEDS: ENOXAPARIN 30 MG/0.3 ML SYG SC SCH (09:00)
[2016-04-07] MEDS: D5W-0.45 NACL + KCL 20 MEQ 1,000 ML IV SCH (09:45)
--- NOTE | 2016-04-07 12:07 | CONS ---
Date/Time of Note Date/Time of Note DATE: 04/07/16 TIME: 12:05 Assessment/Plan Assessment/Plan Chief Complaint/Hosp Course 61-year-old female with stage IIIB ovarian cancer s/p surgery by Dr. Johnston in May 2015 and 6 cycles of carbo/taxol with persistently elevated CA125 (now 39.6), recently admitted to outside hospital with CT concerning for persistent disease, now admitted with 1 month of left flank pain. - Recent PET/CT 03-26-16 showed progressive disease with large volume of peripherally FDG avid loculated abdominal and pelvic ascites with increased omental caking and peritoneal nodularity noted throughout the abdomen and pelvis consistent with progressive recurrent ovarian carcinoma. with history of ovarian carcinoma with metastasis. - Per Dr. Johnston, ovarian cancer with recurrence would benefit from secondary CRS even though persistent disease because the problem is her chemo was delayed 3 months postop. Informed of need to start chemo nathan postop. Plan for secondary cytoreduction, possible bowel resection, possible fecal diversion early next week, possibly Wednesday perp patient. -plan to start adjuvant chemotherapy in house 1 week post op or when cleared by [facility] onc. plan to given 1 dose of Gemcitabine/ Cisplatin - Continue pain control per primary team. pt on Dilaudid Approximately 4 min were spent at patient's bedside and in coordination of her care Problems: Consultation Date/Type/Reason Admit Date/Time Apr 02, 2016 at 10:07 Initial Consult Date 04/02/16 Type of Consultation: Hematology/Oncology Reason for Consultation ovarian cancer Referring Provider: BRIAN ZAZUETA MD 24 HR Interval Summary Free Text/Dictation abdominal pain under control with Dilaudid Exam/Review of Systems Vital Signs Vitals Vital Signs Date Time Temp Pulse Resp B/P Pulse Ox O2 Delivery O2 Flow Rate FiO2 04/07/16 07:48 98.1 84 16 140/79 98 Intake and Output 04/06/16 04/06/16 04/07/16 15:00 23:00 07:00 Intake Total 1525 ml 675 ml Output Total 600 ml Balance 1525 ml 75 ml Exam Constitutional: alert, frail Psych: anxiety, depression Head: normocephalic Eyes: nl conjunctiva ENMT: nl external ears & nose, nl lips & teeth Neck: non-tender, supple Cardiovascular: regular rate and rhythm Gastrointestinal: distended, tender Musculoskeletal: nl extremities to inspection, nl gait and stance Extremities: normal pulses Results Result Diagram: 04/07/168 04/07/16 0448 Results 24 hrs Laboratory Tests Test 04/07/16 04:48 Anion Gap 12 Basophils # 0.0 Basophils % 0.3 Blood Urea Nitrogen 9 Calcium Level 8.5 Carbon Dioxide Level 27 Chloride Level 105 Creatinine 0.85 Eosinophils # 0.1 Eosinophils % 3.4 Glucose Level 126 Hematocrit 27.0 L Hemoglobin 8.7 L Lymphocytes # 0.9 Lymphocytes % 29.1 Mean Corpuscular Hemoglobin 31.9 Mean Corpuscular Hemoglobin Concent 32.2 Mean Corpuscular Volume 98.9 Mean Platelet Volume 9.7 Monocytes # 0.3 Monocytes % 10.6 Neutrophils # 1.8 Neutrophils % 56.3 Nucleated Red Blood Cells # 0.0 Nucleated Red Blood Cells % 0.0 Platelet Count 295 Potassium Level 3.7 Red Blood Count 2.73 L Red Cell Distribution Width 16.5 H Sodium Level 140 White Blood Count 3.2 #L Medications Medications Current Medications Acetaminophen/ Hydrocodone Bitart ([place] (5/325)) 1 tab Q6H PRN PO MODERATE PAIN LEVEL 4-6 Last administered on 04/06/16 18:13; Admin Dose 1 TAB; Start at 18:00 Pantoprazole (Protonix Tab) 40 mg DAILY@06 PO Last administered on 04/06/16 05 :24; Admin Dose 40 MG; Start 04/02/16 at 06:00 Enoxaparin Sodium (Lovenox) 30 mg DAILY SC Last administered on 04/06/16 09:39 ; Admin Dose 30 MG; Start 04/01/16 at 18:00 Zolpidem Tartrate (Ambien) 5 mg HS PRN PO INSOMNIA Last administered on 23:48; Admin Dose 5 MG; Start 04/01/16 at 22:00 Diphenhydramine HCl (Benadryl) 25 mg Q6H PRN PO ITCHING Last administered on 06:49; Admin Dose 25 MG; Start 04/02/16 at 07:00 Al Hydrox/Mg Hydrox/Simethicone (Mag-Al Plus) 30 ml Q6H PRN PO GASTROINTESTINAL UPSET Last administered on 04/06/16 19:40; Admin Dose 30 ML; Start 04/02/16 at 17:30 Simethicone (Mylicon) 80 mg Q6 PO Last administered on 04/06/16 18:09; Admin Dose 80 MG; Start 04/02/16 at 18:00 Ondansetron HCl 4 mg 4 mg Q4H PRN IV NAUSEA AND/OR VOMITING Last administered on 04/07/16 04:55; Admin Dose 4 MG; Start 04/03/16 at 15:00 Potassium Chloride/Dextrose/ Sod Cl (D5-1/2ns + KCl 20 Meq) 1,000 ml @ 75 mls/ hr [id number] IV Last administered on 04/07/16 09:45; Admin Dose 75 MLS/HR; Start 04/03/16 at 19:30 Clonidine HCl (Catapres-Tts 2 Patch) 1 patch Q7D TRANSDERM Last administered on 04/04/16 14:03; Admin Dose 1 PATCH; Start 04/04/16 at 13:15 Hydromorphone HCl (Dilaudid) 1 mg Q3 PRN IV SEVERE PAIN LEVEL 7-10 Last administered on 04/07/16 10:58; Admin Dose 1 MG; Start 04/06/16 at 00:00 DEMETRA COLUNGA M.D. Apr 07, 2016 12:07
--- NOTE | 2016-04-07 15:06 | HPN ---
Date/Time of Note Date/Time of Note DATE: 04/07/16 TIME: 15:06 Interval H&P Admission Note Pt. seen H&P reviewed: No system changes ANDI WADDELL MD Apr 07, 2016 15:06
[2016-04-07] MEDS ORDERED: ROCURONIUM 50 MG INJ ONE ×2 (15:59→16:03)
[2016-04-07] MEDS ORDERED: PROPOFOL 0 ML ONE (15:59)
[2016-04-07] MEDS ORDERED: MIDAZOLAM 1 MG/ML 2 ML INJ ONE (16:00)
[2016-04-07] MEDS ORDERED: PROPOFOL 100 ML ONE (16:03)
--- NOTE | 2016-04-07 16:10 | PN ---
Date/Time of Note Date/Time of Note DATE: 04/07/16 TIME: 16:10 Assessment/Plan VTE Prophylaxis VTE Prophylaxis Intervention: SCD's Lines/Catheters IV Catheter Type (from Nrs): Port-a cath Urinary Cath still in place: No Assessment/Plan Chief Complaint/Hosp Course ASSESSMENT AND PLAN: - Progressive recurrent ovarian carcinoma. Status post chemotherapy. Dr. Foy is following in hematology/oncology consultation. Dr. Johnston is following from a surgery standpoint. Plan for surgery today. - Intractable abdominal pain and nausea secondary to #1. Continue Dilaudid p.r.n. for pain and Zofran p.r.n. for nausea. Continue Lovenox for deep venous thrombosis prophylaxis and Protonix for peptic ulcer disease prophylaxis. Further recommendations based on clinical course. Plan of care was discussed with Dr. Bravo. Problems: Subjective 24 Hr Interval Summary Free Text/Dictation Patient is currently in OR, no acute events reported prior to surgery. Exam/Review of Systems Vital Signs Vitals Vital Signs Date Time Temp Pulse Resp B/P Pulse Ox O2 Delivery O2 Flow Rate FiO2 04/07/16 07:48 98.1 84 16 140/79 98 Intake and Output 04/06/16 04/06/16 04/07/16 15:00 23:00 07:00 Intake Total 1525 ml 675 ml Output Total 600 ml Balance 1525 ml 75 ml Results Result Diagram: 04/07/16 0448 04/07/16 0448 Results 24 hrs Laboratory Tests Test 04/07/16 04:48 Anion Gap 12 Basophils # 0.0 Basophils % 0.3 Blood Urea Nitrogen 9 Calcium Level 8.5 Carbon Dioxide Level 27 Chloride Level 105 Creatinine 0.85 Eosinophils # 0.1 Eosinophils % 3.4 Glucose Level 126 Hematocrit 27.0 L Hemoglobin 8.7 L Lymphocytes # 0.9 Lymphocytes % 29.1 Mean Corpuscular Hemoglobin 31.9 Mean Corpuscular Hemoglobin Concent 32.2 Mean Corpuscular Volume 98.9 Mean Platelet Volume 9.7 Monocytes # 0.3 Monocytes % 10.6 Neutrophils # 1.8 Neutrophils % 56.3 Nucleated Red Blood Cells # 0.0 Nucleated Red Blood Cells % 0.0 Platelet Count 295 Potassium Level 3.7 Red Blood Count 2.73 L Red Cell Distribution Width 16.5 H Sodium Level 140 White Blood Count 3.2 #L Medications Medications Current Medications Acetaminophen/ Hydrocodone Bitart ([place] (5/325)) 1 tab Q6H PRN PO MODERATE PAIN LEVEL 4-6 Last administered on 04/06/16 18:13; Admin Dose 1 TAB; Start at 18:00 Pantoprazole (Protonix Tab) 40 mg DAILY@06 PO Last administered on 04/06/16 05 :24; Admin Dose 40 MG; Start 04/02/16 at 06:00 Enoxaparin Sodium (Lovenox) 30 mg DAILY SC Last administered on 04/06/16 09:39 ; Admin Dose 30 MG; Start 04/01/16 at 18:00 Zolpidem Tartrate (Ambien) 5 mg HS PRN PO INSOMNIA Last administered on 23:48; Admin Dose 5 MG; Start 04/01/16 at 22:00 Diphenhydramine HCl (Benadryl) 25 mg Q6H PRN PO ITCHING Last administered on 06:49; Admin Dose 25 MG; Start 04/02/16 at 07:00 Al Hydrox/Mg Hydrox/Simethicone (Mag-Al Plus) 30 ml Q6H PRN PO GASTROINTESTINAL UPSET Last administered on 04/06/16 19:40; Admin Dose 30 ML; Start 04/02/16 at 17:30 Simethicone (Mylicon) 80 mg Q6 PO Last administered on 04/06/16 18:09; Admin Dose 80 MG; Start 04/02/16 at 18:00 Ondansetron HCl 4 mg 4 mg Q4H PRN IV NAUSEA AND/OR VOMITING Last administered on 04/07/16 12:38; Admin Dose 4 MG; Start 04/03/16 at 15:00 Potassium Chloride/Dextrose/ Sod Cl (D5-1/2ns + KCl 20 Meq) 1,000 ml @ 75 mls/ hr [id number] IV Last administered on 04/07/16 09:45; Admin Dose 75 MLS/HR; Start 04/03/16 at 19:30 Clonidine HCl (Catapres-Tts 2 Patch) 1 patch Q7D TRANSDERM Last administered on 04/04/16 14:03; Admin Dose 1 PATCH; Start 04/04/16 at 13:15 Hydromorphone HCl (Dilaudid) 1 mg Q3 PRN IV SEVERE PAIN LEVEL 7-10 Last administered on 04/07/16t 14:21; Admin Dose 1 MG; Start 04/06/16 at 00:00 LARRY MEJIA Apr 07, 2016 16:10
[2016-04-07] MEDS ORDERED: METHYLENE BLUE 10 MG/ML VIAL ONE (16:13)
[2016-04-07] MEDS ORDERED: hydrALAzine 20 MG INJ ONE (17:54)
[2016-04-07] MEDS ORDERED: LABETALOL HCL 20MG INJ ONE (17:55)
--- NOTE | 2016-04-07 18:00 | RADRPT ---
Vent Rate: 82 bpm RR Interval: 0 msec RI Interval: 158 msec QRS Duration: 84 msec QT Interval: 366 msec QTC Interval: 427 msec P-R-T [place]: 46 - -56 - 47 degrees Normal sinus rhythm PRWP probably secondary to Left anterior fascicular block Abnormal ECG Electronically Signed By: Joce Ulrich [id number]
[2016-04-07] MEDS ORDERED: METOCLOPRAMIDE 10 MG INJ IV PRN (18:30)
[2016-04-07] MEDS ORDERED: ONDANSETRON 4 MG INJ IV PRN (18:30)
[2016-04-07] MEDS ORDERED: hydrALAzine 20 MG INJ IV PRN (18:30)
[2016-04-07] MEDS ORDERED: morphine (1 MG/ML) 10ML SYRINGE IV PRN ×3 (18:30)
[2016-04-07] MEDS ORDERED: LABETALOL HCL 20MG INJ IV PRN (18:30)
[2016-04-07] MEDS ORDERED: MEPERIDINE 25 MG INJ IV PRN (18:30)
[2016-04-07] MEDS ORDERED: DIPHENHYDRAMINE 50 MG INJ IV PRN (18:30)
[2016-04-07] MEDS ORDERED: ALBUMIN HUMAN 5% 250 ML IV PRN (18:30)
[2016-04-07] MEDS ORDERED: HYDROmorphONE (0.2 MG/ML) 10ML SYG IV PRN ×3 (18:30)
[2016-04-07] MEDS ORDERED: EPHEDrine SULFATE 50 MG/5 ML SYG IV PRN (18:30)
[2016-04-07] MEDS ORDERED: FENTAnyl 50 MCG/ML VIAL IV PRN ×3 (18:30)
[2016-04-07 19:41] LABS: AADO2 Arterial 211.2 mmHg (7.0-24.0); Allen Test ACCEPTAB; Arterial Base Excess -3.4 mmol/L (-3.0-3); Arterial COHb 0.3 % (0.0-3.0); Arterial Fraction of Oxyhgb 98.6 % (93.0-99.0); Arterial HCO3 20.8 mmol/L (22.0-26.0); Arterial MetHb 0.6 % (0.0-1.5); Arterial Total Hemglobin 11.9 g/dl (12.0-18.0); Blood Gas Low PEEP Setting 0 cmH2O; MODE ANESTH MACHINE
[2016-04-07] MEDS ORDERED: ACETAMINOPHEN 1000MG/100ML IV 100 ML ONE (19:43)
[2016-04-07] MEDS ORDERED: FUROSEMIDE 20 MG INJ ONE (20:20)
[2016-04-07] MEDS ORDERED: ONDANSETRON 4 MG INJ ONE (21:04)
[2016-04-07] MEDS ORDERED: METOCLOPRAMIDE 10 MG INJ ONE (21:05)
[2016-04-07] MEDS ORDERED: DEXAMETHASONE 4 MG/ML 1 ML INJ ONE (21:05)
[2016-04-07] MEDS ORDERED: FAMOTIDINE 20 MG INJ ONE (21:05)
[2016-04-07] MEDS ORDERED: GLYCOPYRROLATE 0.4 MG INJ ONE (21:07)
[2016-04-07] MEDS ORDERED: NEOSTIGMINE 3 MG/3 ML SYRINGE ONE (21:08)
[2016-04-07] MEDS ORDERED: ALBUMIN HUMAN 5% 500 ML IVPB PRN (22:30)
[2016-04-07 23:11] LABS: ADD UMIC NO; URINE BILIRUBIN (Dip) NEGATIVE (NEGATIVE); URINE BLOOD (Dip) NEGATIVE (NEGATIVE); URINE COLOR LT. YELLOW (YELLOW); URINE GLUCOSE (Dip) NEGATIVE (NEGATIVE); URINE KETONES (Dip) NEGATIVE (NEGATIVE); URINE LEUKOCYTE ESTERASE (Dip) NEGATIVE (NEGATIVE); URINE NITRITE (Dip) NEGATIVE (NEGATIVE); URINE TOTAL PROTEIN (Dip) NEGATIVE (NEGATIVE); URINE UROBILINOGEN (Dip) 0.2 E.U./dL (0.1-1.0)
[2016-04-07 23:14] LABS: ADD SCAN DIFF NO
[2016-04-07 23:17] LABS: HEMATOCRIT 34.8 % (37.0-47.0); HEMOGLOBIN 11.6 g/dl (12.0-16.0); LYMPHOCYTES # 0.6 10^3/ul (0.8-2.9); MEAN CORPUSCULAR HEMOGLOBIN 31.8 pg (29.0-33.0); MEAN CORPUSCULAR HGB CONC 33.3 g/dl (32.0-37.0); MEAN CORPUSCULAR VOLUME 95.3 fl (82.0-101.0); MEAN PLATELET VOLUME 10.2 fl (7.4-10.4); MONOCYTE # 0.1 10^3/ul (0.3-0.9); PLATELET COUNT 263 10^3/UL (140-415); RED BLOOD COUNT 3.65 10^6/ul (4.20-5.40); RED CELL DISTRIBUTION WIDTH 15.4 % (11.5-14.5); WHITE BLOOD COUNT 3.1 10^3/ul (4.8-10.8)
[2016-04-07 23:21] LABS: CREATININE 0.7 mg/dl (0.44-1.00); INR 1.5; PROTIME 18.2 Sec (12.2-14.2); PT RATIO 1.4
[2016-04-07 23:22] LABS: CALCIUM 6.8 mg/dl (8.4-10.2)
[2016-04-08] VITALS (24 sets, daily range): BP systolic 80–147; BP diastolic 42–94; PULSE 78–118; RESP 10–19
[2016-04-08 00:04] LABS: POTASSIUM 2.9 mmol/L (3.5-5.1)
[2016-04-08 00:09] LABS: PLATELET ESTIMATE PLT APPEAR ADEQUATE
[2016-04-08] MEDS: HYDROmorphONE 1 MG/ML SYG IV PRN ×8 (00:09→13:17)
[2016-04-08] MEDS ORDERED: POTASSIUM CHLORIDE 50 ML IVPB ONE (00:30)
[2016-04-08] MEDS: D5-LR + KCL 20 MEQ 1,000 ML IV SCH ×4 (00:45→21:05)
[2016-04-08] MEDS: CEFAZOLIN 1 GM/50 ML (PMX) 50 ML IVPB SCH ×3 (00:46→17:55)
[2016-04-08] MEDS ORDERED: SOD CHLORIDE 0.9% 250 ML IV* ONE (05:12)
[2016-04-08] MEDS: PANTOPRAZOLE 40 MG INJ IV SCH (06:11)
[2016-04-08] MEDS: ONDANSETRON 4 MG INJ IV PRN ×2 (06:19→15:14)
[2016-04-08 06:39] LABS: ADD SCAN DIFF NO
[2016-04-08 06:45] LABS: ABNORMAL IP MESSAGE 1; BASOPHILS % 0.2 % (0.0-2.0); HEMATOCRIT 38.2 % (37.0-47.0); HEMOGLOBIN 13.1 g/dl (12.0-16.0); LYMPHOCYTES # 0.3 10^3/ul (0.8-2.9); LYMPHOCYTES % 6.3 % (15.0-51.0); MEAN CORPUSCULAR HEMOGLOBIN 32.1 pg (29.0-33.0); MEAN CORPUSCULAR HGB CONC 34.3 g/dl (32.0-37.0); MEAN CORPUSCULAR VOLUME 93.6 fl (82.0-101.0); MEAN PLATELET VOLUME 9.9 fl (7.4-10.4); MONOCYTE # 0.2 10^3/ul (0.3-0.9); MONOCYTES % 4.3 % (0.0-11.0); NEUTROPHIL # 4.1 10^3/ul (1.6-7.5); NEUTROPHILS % 89.2 % (39.0-77.0); PLATELET COUNT 242 10^3/UL (140-415); RED BLOOD COUNT 4.08 10^6/ul (4.20-5.40); RED CELL DISTRIBUTION WIDTH 15.4 % (11.5-14.5); WHITE BLOOD COUNT 4.6 10^3/ul (4.8-10.8)
[2016-04-08 06:58] LABS: POTASSIUM 3.9 mmol/L (3.5-5.1)
[2016-04-08 07:01] LABS: CALCIUM 7.4 mg/dl (8.4-10.2); CREATININE 0.81 mg/dl (0.44-1.00)
[2016-04-08] MEDS: ENOXAPARIN 30 MG/0.3 ML SYG SC SCH (08:55)
--- NOTE | 2016-04-08 12:42 | CONS ---
Date/Time of Note Date/Time of Note DATE: 04/08/16 TIME: 12:40 Assessment/Plan Assessment/Plan Chief Complaint/Hosp Course 61-year-old female with stage IIIB ovarian cancer s/p surgery by Dr. Johnston in May 2015 and 6 cycles of carbo/taxol with persistently elevated CA125 (now 39.6), recently admitted to outside hospital with CT concerning for persistent disease, now admitted with 1 month of left flank pain. Recent PET/ CT 03-26-16 showed progressive disease with large volume of peripherally FDG avid loculated abdominal and pelvic ascites with increased omental caking and peritoneal nodularity noted throughout the abdomen and pelvis consistent with progressive recurrent ovarian carcinoma. - Per Dr. Johnston, ovarian cancer with recurrence would benefit from secondary CRS even though persistent disease because the problem is her chemo was delayed 3 months postop. Informed of need to start chemo nathan postop. PT is now pod #1 of CRS - cont post op care per surgery - plan to start adjuvant chemotherapy in house 1 week post op or when cleared by [facility] onc. plan to given 1 dose of Gemcitabine/ Cisplatin - Continue pain control per primary team. pt on Dilaudid Approximately 4 min were spent at patient's bedside and in coordination of her care Problems: Consultation Date/Type/Reason Admit Date/Time Apr 02, 2016 at 10:07 Initial Consult Date 04/02/16 Type of Consultation: Hematology/Oncology Reason for Consultation ovarian cancer Referring Provider: BRIAN ZAZUETA MD 24 HR Interval Summary Free Text/Dictation pt is s/p cytoreductive surgery. states post operative pain is under control. NPO with NGT in place Exam/Review of Systems Vital Signs Vitals Vital Signs Date Time Temp Pulse Resp B/P Pulse Ox O2 Delivery O2 Flow Rate FiO2 04/08/16 08:00 117 04/08/16 07:45 Nasal Cannula 3.0 04/08/16 07:00 12 125/81 97 04/08/16 04:00 97.8 Intake and Output 04/07/16 04/07/16 04/08/16 15:00 23:00 07:00 Intake Total 600 ml 6750 ml 900 ml Output Total 1350 ml 1290 ml Balance 600 ml 5400 ml -390 ml Exam Constitutional: alert, frail, oriented Head: normocephalic Eyes: nl conjunctiva ENMT: nl external ears & nose, other (NGT in place) Neck: non-tender, supple Respiratory: clear to auscultation, normal air movement Cardiovascular: regular rate and rhythm Gastrointestinal: soft, surgical scars Musculoskeletal: nl extremities to inspection, nl gait and stance Extremities: normal pulses Results Result Diagram: 04/08/16 0615 04/08/16 0615 Results 24 hrs Laboratory Tests Test 04/07/16 19:19 04/07/16 21:40 04/07/16 22:30 04/08/16 06:15 Arterial Blood HCO3 20.8 L Arterial Blood Base Excess -3.4 L Arterial Blood Oxygen Saturation 99.5 H Duran Test ACCEPTAB Arterial Blood Gas Puncture Site Left Radial Arterial Blood Carboxyhemoglobin 0.3 Arterial Blood Date Drawn 04/07/2016 7:23:56 PM Arterial Blood Methemoglobin 0.6 Arterial Blood pCO2 (Temp correct) 32.2 L Arterial Blood pH (Temp corrected) 7.421 Arterial Blood pO2 (Temp corrected) 474.1 H Blood Gas A-a O2 Differential 211.2 H Blood Gas Inspiratory Pressure 17.0 Blood Gas Low PEEP Setting 0 Blood Gas Modality ANESTH MACHINE Blood Gas Notified Time 04/07/2016 7:38:33 PM Blood Gas Notified Whom RTR Blood Gas Respiration Rate 8.0 Blood Gas Specimen Source Blood arterial Blood Gas Temperature 35.2 Blood Gas Tidal Volume 450.0 FiO2 100.0 Oxyhemoglobin Percent 98.6 Total Hemoglobin 11.9 L Urine Bilirubin NEGATIVE Urine Clarity CLEAR Urine Color LT. YELLOW Urine Glucose NEGATIVE Urine Hemoglobin NEGATIVE Urine Ketones NEGATIVE Urine Leukocyte Esterase NEGATIVE Urine Nitrite NEGATIVE Urine Specific [place] <=1.005 L Urine Total Protein NEGATIVE Urine Urobilinogen 0.2 E.U./dL Urine pH 6.0 Anion Gap 10 13 Basophils # 0.0 Basophils % 0.2 Blood Urea Nitrogen 8 9 Calcium Level 6.8 L 7.4 L Carbon Dioxide Level 21 20 L Chloride Level 107 107 Creatinine 0.70 0.81 Eosinophils # 0.0 Eosinophils % 0.0 Glucose Level 138 178 Hematocrit 34.8 #L 38.2 Hemoglobin 11.6 #L 13.1 INR International Normalized Ratio 1.50 Lymphocytes # 0.6 L 0.3 L Lymphocytes % 20.0 6.3 L Mean Corpuscular Hemoglobin 31.8 32.1 Mean Corpuscular Hemoglobin Concent 33.3 34.3 Mean Corpuscular Volume 95.3 93.6 Mean Platelet Volume 10.2 9.9 Monocytes # 0.1 L 0.2 L Monocytes % 4.0 4.3 Neutrophils # 2.0 4.1 Neutrophils % 66.0 89.2 H Nucleated Red Blood Cells # 0.0 0.0 Nucleated Red Blood Cells % 0.0 0.0 Platelet Count 263 242 Platelet Estimate PLT APPEAR ADEQUATE Potassium Level 2.9 *L 3.9 Prothrombin Time 18.2 #H Prothrombin Time Ratio 1.4 Red Blood Count 3.65 #L 4.08 L Red Cell Distribution Width 15.4 H 15.4 H Sodium Level 135 136 White Blood Count 3.1 L 4.6 #L Medications Medications Current Medications Acetaminophen/ Hydrocodone Bitart ([place] (5/325)) 1 tab Q6H PRN PO MODERATE PAIN LEVEL 4-6 Last administered on 04/06/16 18:13; Admin Dose 1 TAB; Start at 18:00 Enoxaparin Sodium (Lovenox) 30 mg DAILY SC Last administered on 04/08/16 08:55 ; Admin Dose 30 MG; Start 04/01/16 at 18:00 Zolpidem Tartrate (Ambien) 5 mg HS PRN PO INSOMNIA Last administered on 23:48; Admin Dose 5 MG; Start 04/01/16 at 22:00 Diphenhydramine HCl (Benadryl) 25 mg Q6H PRN PO ITCHING Last administered on 06:49; Admin Dose 25 MG; Start 04/02/16 at 07:00 Al Hydrox/Mg Hydrox/Simethicone (Mag-Al Plus) 30 ml Q6H PRN PO GASTROINTESTINAL UPSET Last administered on 04/06/16 19:40; Admin Dose 30 ML; Start 04/02/16 at 17:30 Simethicone (Mylicon) 80 mg Q6 PO Last administered on 04/08/16 12:03; Admin Dose 80 MG; Start 04/02/16 at 18:00 Clonidine HCl 1 patch 1 patch Q7D TRANSDERM Last administered on 04/04/16 14: 03; Admin Dose 1 PATCH; Start 04/04/16 at 13:15 Potassium Cl/ Dextrose/Lact Ringer's 1,000 ml @ 150 mls/hr Q6H40M IV Last administered on 04/08/16 00:45; Admin Dose 150 MLS/HR; Start 04/07/16 at 23:30 Cefazolin Sodium (Ancef 1 Gm/50 ml (Pmx)) 50 ml @ 100 mls/hr Q8H IVPB Last administered on 04/08/16 08:52; Admin Dose 100 MLS/HR; Start 04/08/16 at 01:00; Stop 04/09/16 at 17:29 Hydromorphone HCl (Dilaudid) 1 mg Q1H PRN IV PAIN Last administered on 11:58; Admin Dose 1 MG; Start 04/07/16 at 22:30 Ondansetron HCl 4 mg 4 mg Q6H PRN IV NAUSEA AND/OR VOMITING Last administered on 04/08/16 06:19; Admin Dose 4 MG; Start 04/07/16 at 22:30 Albumin Human ([place]x) 500 ml @ 250 mls/hr ONCE PRN IVPB U/O BELOW 30 ML/HR X 2 HR; Start 04/07/16 at 22:30 Pantoprazole (Protonix Iv) 40 mg DAILY@06 IV Last administered on 04/08/16 06: 11; Admin Dose 40 MG; Start 04/08/16 at 06:00 DEMETRA COLUNGA M.D. Apr 08, 2016 12:42
--- NOTE | 2016-04-08 14:38 | PN ---
Date/Time of Note Date/Time of Note DATE: 04/08/16 TIME: 14:29 Assessment/Plan VTE Prophylaxis VTE Prophylaxis Intervention: SCD's Lines/Catheters IV Catheter Type (from Nrsg): A Line Urinary Cath still in place: Yes Reason Cath still needed: urinary retention Assessment/Plan Chief Complaint/Hosp Course ASSESSMENT AND PLAN: - Progressive recurrent ovarian carcinoma. Status post chemotherapy. Dr. Foy is following in hematology/oncology consultation. Dr. Johnston is following from a surgery standpoint. S/p bowel resection 04/07. Continue ICU care, IVF, pain management, NPO. - Intractable abdominal pain and nausea secondary to #1. Continue Dilaudid p.r.n. for pain and Zofran p.r.n. for nausea. Continue Lovenox for deep venous thrombosis prophylaxis and Protonix for peptic ulcer disease prophylaxis. Further recommendations based on clinical course. Plan of care was discussed with Dr. Bravo. Problems: Subjective 24 Hr Interval Summary Free Text/Dictation Patient is awake, alert, s/p bowel resection yesterday, marginal UO, BUN/creat is wnl, complains of pain. Exam/Review of Systems Vital Signs Vitals Vital Signs Date Time Temp Pulse Resp B/P Pulse Ox O2 Delivery O2 Flow Rate FiO2 04/08/16 12:00 105 04/08/16 07:45 Nasal Cannula 3.0 04/08/16 07:00 12 125/81 97 04/08/16 04:00 97.8 Intake and Output 04/07/16 04/07/16 04/08/16 15:00 23:00 07:00 Intake Total 600 ml 6750 ml 900 ml Output Total 1350 ml 1290 ml Balance 600 ml 5400 ml -390 ml Exam PHYSICAL ASSESSMENT: GENERAL: Well-developed, well-nourished female currently is awake, alert. HEENT: Head is atraumatic, normocephalic. NGT to LWS. NECK: Supple, no cervical lymphadenopathy, no thyromegaly. CHEST: Lungs clear bilaterally. There is no rhonchi, wheezes, rales noted. CARDIOVASCULAR: Normal S1, S2. No murmurs, gallops, clicks, rubs noted. ABDOMEN: Round, soft, s/p surgery with midline incision, EMERITA. SKIN: There is no rash, petechiae noted. EXTREMITIES: No edema, clubbing, cyanosis. Pulses equal bilaterally 2+. Mild edema. SKIN: There is no rash or petechiae noted. NEUROLOGICAL: The patient is awake, alert and oriented x4. Results Result Diagram: 04/08/16 0615 04/08/16 0615 Results 24 hrs Laboratory Tests Test 04/07/16 19:19 04/07/16 21:40 04/07/16 22:30 04/08/16 06:15 Arterial Blood HCO3 20.8 L Arterial Blood Base Excess -3.4 L Arterial Blood Oxygen Saturation 99.5 H Duran Test ACCEPTAB Arterial Blood Gas Puncture Site Left Radial Arterial Blood Carboxyhemoglobin 0.3 Arterial Blood Date Drawn 04/07/2016 7:23:56 PM Arterial Blood Methemoglobin 0.6 Arterial Blood pCO2 (Temp correct) 32.2 L Arterial Blood pH (Temp corrected) 7.421 Arterial Blood pO2 (Temp corrected) 474.1 H Blood Gas A-a O2 Differential 211.2 H Blood Gas Inspiratory Pressure 17.0 Blood Gas Low PEEP Setting 0 Blood Gas Modality ANESTH MACHINE Blood Gas Notified Time 04/07/2016 7:38:33 PM Blood Gas Notified Whom RTR Blood Gas Respiration Rate 8.0 Blood Gas Specimen Source Blood arterial Blood Gas Temperature 35.2 Blood Gas Tidal Volume 450.0 FiO2 100.0 Oxyhemoglobin Percent 98.6 Total Hemoglobin 11.9 L Urine Bilirubin NEGATIVE Urine Clarity CLEAR Urine Color LT. YELLOW Urine Glucose NEGATIVE Urine Hemoglobin NEGATIVE Urine Ketones NEGATIVE Urine Leukocyte Esterase NEGATIVE Urine Nitrite NEGATIVE Urine Specific [place] <=1.005 L Urine Total Protein NEGATIVE Urine Urobilinogen 0.2 E.U./dL Urine pH 6.0 Anion Gap 10 13 Basophils # 0.0 Basophils % 0.2 Blood Urea Nitrogen 8 9 Calcium Level 6.8 L 7.4 L Carbon Dioxide Level 21 20 L Chloride Level 107 107 Creatinine 0.70 0.81 Eosinophils # 0.0 Eosinophils % 0.0 Glucose Level 138 178 Hematocrit 34.8 #L 38.2 Hemoglobin 11.6 #L 13.1 INR International Normalized Ratio 1.50 Lymphocytes # 0.6 L 0.3 L Lymphocytes % 20.0 6.3 L Mean Corpuscular Hemoglobin 31.8 32.1 Mean Corpuscular Hemoglobin Concent 33.3 34.3 Mean Corpuscular Volume 95.3 93.6 Mean Platelet Volume 10.2 9.9 Monocytes # 0.1 L 0.2 L Monocytes % 4.0 4.3 Neutrophils # 2.0 4.1 Neutrophils % 66.0 89.2 H Nucleated Red Blood Cells # 0.0 0.0 Nucleated Red Blood Cells % 0.0 0.0 Platelet Count 263 242 Platelet Estimate PLT APPEAR ADEQUATE Potassium Level 2.9 *L 3.9 Prothrombin Time 18.2 #H Prothrombin Time Ratio 1.4 Red Blood Count 3.65 #L 4.08 L Red Cell Distribution Width 15.4 H 15.4 H Sodium Level 135 136 White Blood Count 3.1 L 4.6 #L Medications Medications Current Medications Acetaminophen/ Hydrocodone Bitart ([place] (5/325)) 1 tab Q6H PRN PO MODERATE PAIN LEVEL 4-6 Last administered on 04/06/16 18:13; Admin Dose 1 TAB; Start at 18:00 Enoxaparin Sodium (Lovenox) 30 mg DAILY SC Last administered on 04/08/16 08:55 ; Admin Dose 30 MG; Start 04/01/16 at 18:00 Zolpidem Tartrate (Ambien) 5 mg HS PRN PO INSOMNIA Last administered on 23:48; Admin Dose 5 MG; Start 04/01/16 at 22:00 Diphenhydramine HCl (Benadryl) 25 mg Q6H PRN PO ITCHING Last administered on 06:49; Admin Dose 25 MG; Start 04/02/16 at 07:00 Al Hydrox/Mg Hydrox/Simethicone (Mag-Al Plus) 30 ml Q6H PRN PO GASTROINTESTINAL UPSET Last administered on 04/06/16 19:40; Admin Dose 30 ML; Start 04/02/16 at 17:30 Simethicone (Mylicon) 80 mg Q6 PO Last administered on 04/08/16 12:03; Admin Dose 80 MG; Start 04/02/16 at 18:00 Clonidine HCl 1 patch 1 patch Q7D TRANSDERM Last administered on 04/04/16 14: 03; Admin Dose 1 PATCH; Start 04/04/16 at 13:15 Potassium Cl/ Dextrose/Lact Ringer's 1,000 ml @ 150 mls/hr Q6H40M IV Last administered on 04/08/16 13:20; Admin Dose 150 MLS/HR; Start 04/07/16 at 23:30 Cefazolin Sodium (Ancef 1 Gm/50 ml (Pmx)) 50 ml @ 100 mls/hr Q8H IVPB Last administered on 04/08/16 08:52; Admin Dose 100 MLS/HR; Start 04/08/16 at 01:00; Stop 04/09/16 at 17:29 Hydromorphone HCl (Dilaudid) 1 mg Q1H PRN IV PAIN Last administered on 13:17; Admin Dose 1 MG; Start 04/07/16 at 22:30 Ondansetron HCl 4 mg 4 mg Q6H PRN IV NAUSEA AND/OR VOMITING Last administered on 04/08/16 06:19; Admin Dose 4 MG; Start 04/07/16 at 22:30 Albumin Human (Alburx) 500 ml @ 250 mls/hr ONCE PRN IVPB U/O BELOW 30 ML/HR X 2 HR; Start 04/07/16 at 22:30 Pantoprazole (Protonix Iv) 40 mg DAILY@06 IV Last administered on 04/08/16 06: 11; Admin Dose 40 MG; Start 04/08/16 at 06:00 LARRY MEJIA Apr 08, 2016 14:38
[2016-04-08] MEDS ORDERED: FUROSEMIDE 20 MG INJ IV ONE (15:00)
[2016-04-08] MEDS ORDERED: KETOROLAC 30 MG INJ IV PRN (15:00)
[2016-04-08] MEDS: HYDROmorphONE 2 MG/ML SYG IV PRN ×3 (15:12→23:59)
[2016-04-08 15:20] LABS: INR 1.29; PROTIME 16.2 Sec (12.2-14.2); PT RATIO 1.3
--- NOTE | 2016-04-08 22:10 | PN ---
Date/Time of Note Date/Time of Note DATE: 04/08/16 TIME: 22:06 Assessment/Plan VTE Prophylaxis VTE Prophylaxis Intervention: SCD's Lines/Catheters [facility] A Line Urinary Cath still in place: Yes Assessment/Plan Chief Complaint/Hosp Course Ovarian cancer with recurrence would benefit from secondary CRS even though persistent disease because the problem is her chemo was delayed 3 months postop. Informed of need to start chemo nathan postop and will call [facility] Problems: Assessment/Plan A/P- doing reasonable. Surgery discussed. If ANY decrease in H/H should stop Lovenox due to extent of surgery and risk of bleeding. Subjective 24 Hr Interval Summary Free Text/Dictation S- Overall some decrease in pain despite surgery. O- Resp- clear CVS- NSR Abd- appropriate tenderness and incision clean Ext- NT mild edema A/P- doing reasonable. Surgery discussed. If ANY decrease in H/H should stop Lovenox due to extent of surgery and risk of bleeding. Exam/Review of Systems Vital Signs Vitals Vital Signs Date Time Temp Pulse Resp B/P Pulse Ox O2 Delivery O2 Flow Rate FiO2 04/08/16 20:00 Nasal Cannula 3.0 04/08/16 20:00 110 04/08/16 18:00 19 132/83 100 04/08/16 16:00 97.6 Intake and Output 04/07/16 04/07/16 04/08/16 15:00 23:00 07:00 Intake Total 600 ml 6750 ml 900 ml Output Total 1350 ml 1290 ml Balance 600 ml 5400 ml -390 ml Results Result Diagram: 04/08/16 0615 04/08/16 0615 Results 24 hrs Laboratory Tests Test 04/07/16 22:30 04/08/16 06:15 04/08/16 15:00 Anion Gap 10 13 Basophils # 0.0 Basophils % 0.2 Blood Urea Nitrogen 8 9 Calcium Level 6.8 L 7.4 L Carbon Dioxide Level 21 20 L Chloride Level 107 107 Creatinine 0.70 0.81 Eosinophils # 0.0 Eosinophils % 0.0 Glucose Level 138 178 Hematocrit 34.8 #L 38.2 Hemoglobin 11.6 #L 13.1 INR International Normalized Ratio 1.50 1.29 Lymphocytes # 0.6 L 0.3 L Lymphocytes % 20.0 6.3 L Mean Corpuscular Hemoglobin 31.8 32.1 Mean Corpuscular Hemoglobin Concent 33.3 34.3 Mean Corpuscular Volume 95.3 93.6 Mean Platelet Volume 10.2 9.9 Monocytes # 0.1 L 0.2 L Monocytes % 4.0 4.3 Neutrophils # 2.0 4.1 Neutrophils % 66.0 89.2 H Nucleated Red Blood Cells # 0.0 0.0 Nucleated Red Blood Cells % 0.0 0.0 Platelet Count 263 242 Platelet Estimate PLT APPEAR ADEQUATE Potassium Level 2.9 *L 3.9 Prothrombin Time 18.2 #H 16.2 H Prothrombin Time Ratio 1.4 1.3 Red Blood Count 3.65 #L 4.08 L Red Cell Distribution Width 15.4 H 15.4 H Sodium Level 135 136 White Blood Count 3.1 L 4.6 #L Medications Medications Current Medications Acetaminophen/ Hydrocodone Bitart ([place] (5/325)) 1 tab Q6H PRN PO MODERATE PAIN LEVEL 4-6 Last administered on 04/06/16 18:13; Admin Dose 1 TAB; Start at 18:00 Enoxaparin Sodium (Lovenox) 30 mg DAILY SC Last administered on 04/08/16 08:55 ; Admin Dose 30 MG; Start 04/01/16 at 18:00 Zolpidem Tartrate (Ambien) 5 mg HS PRN PO INSOMNIA Last administered on 23:48; Admin Dose 5 MG; Start 04/01/16 at 22:00 Diphenhydramine HCl (Benadryl) 25 mg Q6H PRN PO ITCHING Last administered on 06:49; Admin Dose 25 MG; Start 04/02/16 at 07:00 Al Hydrox/Mg Hydrox/Simethicone (Mag-Al Plus) 30 ml Q6H PRN PO GASTROINTESTINAL UPSET Last administered on 04/06/16 19:40; Admin Dose 30 ML; Start 04/02/16 at 17:30 Simethicone (Mylicon) 80 mg Q6 PO Last administered on 04/08/16 17:56; Admin Dose 80 MG; Start 04/02/16 at 18:00 Clonidine HCl 1 patch 1 patch Q7D TRANSDERM Last administered on 04/04/16 14: 03; Admin Dose 1 PATCH; Start 04/04/16 at 13:15 Potassium Cl/ Dextrose/Lact Ringer's 1,000 ml @ 150 mls/hr Q6H40M IV Last administered on 04/08/16 21:05; Admin Dose 150 MLS/HR; Start 04/07/16 at 23:30 Cefazolin Sodium (Ancef 1 Gm/50 ml (Pmx)) 50 ml @ 100 mls/hr Q8H IVPB Last administered on 04/08/16 17:55; Admin Dose 100 MLS/HR; Start 04/08/16 at 01:00; Stop 04/09/16 at 17:29 Ondansetron HCl 4 mg 4 mg Q6H PRN IV NAUSEA AND/OR VOMITING Last administered on 04/08/16 15:14; Admin Dose 4 MG; Start 04/07/16 at 22:30 Albumin Human (Alburx) 500 ml @ 250 mls/hr ONCE PRN IVPB U/O BELOW 30 ML/HR X 2 HR; Start 04/07/16 at 22:30 Pantoprazole (Protonix Iv) 40 mg DAILY@06 IV Last administered on 04/08/16 06: 11; Admin Dose 40 MG; Start 04/08/16 at 06:00 Hydromorphone HCl (Dilaudid) 2 mg Q3 PRN IV PAIN Last administered on 04/08/16 18:10; Admin Dose 2 MG; Start 04/08/16 at 15:00 Ketorolac Tromethamine (Toradol) 30 mg Q6H PRN IV PAIN Last administered on 04/08 17:56; Admin Dose 30 MG; Start 04/08/16 at 15:00; Stop 04/09/16 at 15:00 ANDI WADDELL MD Apr 08, 2016 22:10
[2016-04-09] VITALS (29 sets, daily range): BP systolic 84–151; BP diastolic 44–113; PULSE 84–120; RESP 10–22
[2016-04-09] MEDS: CEFAZOLIN 1 GM/50 ML (PMX) 50 ML IVPB SCH ×3 (00:10→17:29)
[2016-04-09] MEDS: D5-LR + KCL 20 MEQ 1,000 ML IV SCH ×4 (03:29→22:10)
[2016-04-09] MEDS: HYDROmorphONE 2 MG/ML SYG IV PRN ×7 (03:29→23:13)
[2016-04-09 04:51] LABS: ADD SCAN DIFF NO
[2016-04-09 05:11] LABS: POTASSIUM 4.2 mmol/L (3.5-5.1)
[2016-04-09 05:13] LABS: CREATININE 1.01 mg/dl (0.44-1.00)
[2016-04-09 05:14] LABS: CALCIUM 7.5 mg/dl (8.4-10.2)
[2016-04-09 06:09] LABS: ABNORMAL IP MESSAGE 1; EOSINOPHILS % 0.1 % (0.0-7.0); HEMOGLOBIN 8.3 g/dl (12.0-16.0); LYMPHOCYTES # 0.6 10^3/ul (0.8-2.9); LYMPHOCYTES % 8.5 % (15.0-51.0); MEAN CORPUSCULAR HEMOGLOBIN 31.9 pg (29.0-33.0); MEAN CORPUSCULAR HGB CONC 33.2 g/dl (32.0-37.0); MEAN CORPUSCULAR VOLUME 96.2 fl (82.0-101.0); MEAN PLATELET VOLUME 9.9 fl (7.4-10.4); MONOCYTE # 0.3 10^3/ul (0.3-0.9); MONOCYTES % 4.3 % (0.0-11.0); NEUTROPHIL # 6.4 10^3/ul (1.6-7.5); NEUTROPHILS % 85.4 % (39.0-77.0); PLATELET COUNT 163 10^3/UL (140-415); RED CELL DISTRIBUTION WIDTH 15.8 % (11.5-14.5); WHITE BLOOD COUNT 7.5 10^3/ul (4.8-10.8)
[2016-04-09] MEDS: PANTOPRAZOLE 40 MG INJ IV SCH (06:36)
[2016-04-09] MEDS: ONDANSETRON 4 MG INJ IV PRN (06:43)
[2016-04-09] MEDS: ENOXAPARIN 30 MG/0.3 ML SYG SC SCH (09:00)
--- NOTE | 2016-04-09 10:19 | PN ---
Date/Time of Note Date/Time of Note DATE: 04/09/16 TIME: 10:16 Assessment/Plan VTE Prophylaxis VTE Prophylaxis Intervention: SCD's Lines/Catheters IV Catheter Type (from Nrsg): A Line Urinary Cath still in place: Yes Reason Cath still needed: urinary retention Assessment/Plan Assessment/Plan - Progressive recurrent ovarian carcinoma. Status post chemotherapy. Dr. Foy is following in hematology/oncology consultation. Dr. Irene Johnston from a surgery standpoint. - S/p bowel resection 04/07. Continue ICU care - IVF, pain management, - NGT feeding- tolerating - Intractable abdominal pain and nausea secondary to #1. - Continue Dilaudid p.r.n. for pain and Zofran p.r.n. for nausea. Continue Lovenox for deep venous thrombosis prophylaxis and Protonix for peptic ulcer disease prophylaxis. Further recommendations based on clinical course. Total critical care time spent- 35 mins.Plan of care was discussed with Dr. Bravo. Subjective 24 Hr Interval Summary Eyes: no complaints ENT: no complaints Respiratory: no complaints Cardiovascular: no complaints Gastrointestinal: no complaints Genitourinary: no complaints Skin: no complaints Neurologic: no complaints Endocrine: no complaints Lymphatic: no complaints Psychological: nl mood/affect Exam/Review of Systems Vital Signs Vitals Vital Signs Date Time Temp Pulse Resp B/P Pulse Ox O2 Delivery O2 Flow Rate FiO2 04/09/16 08:00 88 04/09/16 07:54 Nasal Cannula 2.0 04/09/16 07:45 18 116/59 100 04/09/16 07:00 98.1 Intake and Output 04/08/16 04/08/16 04/09/16 15:00 23:00 07:00 Intake Total 750 ml 1100 ml Output Total 680 ml 1405 ml 535 ml Balance -680 ml -655 ml 565 ml Exam Constitutional: alert, oriented, well developed Psych: nl mood/affect Head: atraumatic Eyes: EOMI, PERRL, nl sclera ENMT: nl external ears & nose Neck: non-tender Respiratory: clear to auscultation Cardiovascular: nl pulses Gastrointestinal: non-tender, other (NGT noted), soft Musculoskeletal: nl extremities to inspection Neurological: nl mental status, nl speech Skin: nl turgor Lymph: nontender Results Result Diagram: 3/2/17 0406 3/2/17 0406 Results 24 hrs Laboratory Tests Test 04/08/16 15:00 04/09/16 04:06 INR International Normalized Ratio 1.29 Prothrombin Time 16.2 H Prothrombin Time Ratio 1.3 Anion Gap 12 Basophils # 0.0 Basophils % 0.0 Blood Urea Nitrogen 16 Calcium Level 7.5 L Carbon Dioxide Level 26 Chloride Level 108 Creatinine 1.01 H Eosinophils # 0.0 Eosinophils % 0.1 Glucose Level 121 # Hematocrit 25.0 #L Hemoglobin 8.3 #L Lymphocytes # 0.6 L Lymphocytes % 8.5 L Mean Corpuscular Hemoglobin 31.9 Mean Corpuscular Hemoglobin Concent 33.2 Mean Corpuscular Volume 96.2 Mean Platelet Volume 9.9 Monocytes # 0.3 Monocytes % 4.3 Neutrophils # 6.4 Neutrophils % 85.4 H Nucleated Red Blood Cells # 0.0 Nucleated Red Blood Cells % 0.0 Platelet Count 163 # Potassium Level 4.2 Red Blood Count 2.60 #L Red Cell Distribution Width 15.8 H Sodium Level 142 White Blood Count 7.5 # Medications Medications Current Medications Acetaminophen/ Hydrocodone Bitart ([place] (5/325)) 1 tab Q6H PRN PO MODERATE PAIN LEVEL 4-6 Last administered on 04/06/16 18:13; Admin Dose 1 TAB; Start at 18:00 Enoxaparin Sodium (Lovenox) 30 mg DAILY SC Last administered on 04/08/16 08:55 ; Admin Dose 30 MG; Start 04/01/16 at 18:00 Zolpidem Tartrate (Ambien) 5 mg HS PRN PO INSOMNIA Last administered on 23:48; Admin Dose 5 MG; Start 04/01/16 at 22:00 Diphenhydramine HCl (Benadryl) 25 mg Q6H PRN PO ITCHING Last administered on 06:49; Admin Dose 25 MG; Start 04/02/16 at 07:00 Al Hydrox/Mg Hydrox/Simethicone (Mag-Al Plus) 30 ml Q6H PRN PO GASTROINTESTINAL UPSET Last administered on 04/06/16 19:40; Admin Dose 30 ML; Start 04/02/16 at 17:30 Simethicone (Mylicon) 80 mg Q6 PO Last administered on 04/09/16 06:36; Admin Dose 80 MG; Start 04/02/16 at 18:00 Clonidine HCl 1 patch 1 patch Q7D TRANSDERM Last administered on 04/04/16 14: 03; Admin Dose 1 PATCH; Start 04/04/16 at 13:15 Potassium Cl/ Dextrose/Lact Ringer's 1,000 ml @ 150 mls/hr Q6H40M IV Last administered on 04/09/16 09:01; Admin Dose 150 MLS/HR; Start 04/07/16 at 23:30 Cefazolin Sodium (Ancef 1 Gm/50 ml (Pmx)) 50 ml @ 100 mls/hr Q8H IVPB Last administered on 04/09/16 09:01; Admin Dose 100 MLS/HR; Start 04/08/16 at 01:00; Stop 04/09/16 at 17:29 Ondansetron HCl 4 mg 4 mg Q6H PRN IV NAUSEA AND/OR VOMITING Last administered on 04/09/16 06:43; Admin Dose 4 MG; Start 04/07/16 at 22:30 Albumin Human (Alburx) 500 ml @ 250 mls/hr ONCE PRN IVPB U/O BELOW 30 ML/HR X 2 HR; Start 04/07/16 at 22:30 Pantoprazole (Protonix Iv) 40 mg DAILY@06 IV Last administered on 04/09/16 06: 36; Admin Dose 40 MG; Start 04/08/16 at 06:00 Hydromorphone HCl (Dilaudid) 2 mg Q3 PRN IV PAIN Last administered on 04/09/16 09:53; Admin Dose 2 MG; Start 04/08/16 at 15:00 Ketorolac Tromethamine (Toradol) 30 mg Q6H PRN IV PAIN Last administered on 04/08 17:56; Admin Dose 30 MG; Start 04/08/16 at 15:00; Stop 04/09/16 at 15:00 BLAKE BRUMFIELD Apr 09, 2016 10:19
--- NOTE | 2016-04-09 11:56 | RADRPT ---
PROCEDURE: US DVT. CLINICAL INDICATION: Bilateral lower extremity edema.. TECHNIQUE: Multiple longitudinal and transverse images of the bilateral lower extremity veins were obtained with escobar scale and color Doppler imaging. 2D grayscale measurements with compression, co brianna Doppler flow, and augmentation was performed. The calf veins were interrogated as well. COMPARISON: No prior studies are available for comparison. FINDINGS: The bilateral common femoral, superficial femoral and popliteal veins are normally compressible thro ughout. Color flow demonstrates normal filling of the vessel. Normal waveforms are visualized and there is normal response to augmentation. IMPRESSION: 1. No evidence of a deep vein thrombosis involving either lower extremity. RPTAT: [facility] Physician Silva Date Time Electronically viewed and signed by Physician Silva on 04/09/2016 11:56 /
[2016-04-09 12:30] LABS: INR 1.57; PROTIME 18.9 Sec (12.2-14.2); PT RATIO 1.5
--- NOTE | 2016-04-09 12:35 | CONS ---
Date/Time of Note Date/Time of Note DATE: 04/09/16 TIME: 12:29 Assessment/Plan Assessment/Plan Chief Complaint/Hosp Course 61-year-old female with stage IIIB ovarian cancer s/p surgery by Dr. Johnston in May 2015 and 6 cycles of carbo/taxol with persistently elevated CA125 (now 39.6), recently admitted to outside hospital with CT concerning for persistent disease, now admitted with 1 month of left flank pain. Recent PET/ CT 03-26-16 showed progressive disease with large volume of peripherally FDG avid loculated abdominal and pelvic ascites with increased omental caking and peritoneal nodularity noted throughout the abdomen and pelvis consistent with progressive recurrent ovarian carcinoma. Pt is now s/p CRS for recurrent disease. She is currently POD 2 - cont post op care per surgery - plan to start adjuvant chemotherapy in house 1 week post op or when cleared by [facility] onc. plan to given 1 dose of Gemcitabine/ Cisplatin - Continue pain control per primary team. pt on Dilaudid -blood transfusion ordered for drop in H/H Approximately 4 min were spent at patient's bedside and in coordination of her care Problems: Consultation Date/Type/Reason Admit Date/Time Apr 02, 2016 at 10:07 Initial Consult Date 04/02/16 Type of Consultation: Hematology/Oncology Reason for Consultation ovarian cancer Referring Provider: BRIAN ZAZUETA MD 24 HR Interval Summary Free Text/Dictation s/p cytoreductive surgery on Wednesday. currently still NPO. pain is controlled. Exam/Review of Systems Vital Signs Vitals Vital Signs Date Time Temp Pulse Resp B/P Pulse Ox O2 Delivery O2 Flow Rate FiO2 04/09/16 11:00 84 11 97/49 100 Nasal Cannula 2.0 04/09/16 07:00 98.1 Intake and Output 04/08/16 04/08/16 04/09/16 15:00 23:00 07:00 Intake Total 750 ml 1100 ml Output Total 680 ml 1405 ml 535 ml Balance -680 ml -655 ml 565 ml Exam Constitutional: alert, oriented Head: atraumatic, normocephalic Eyes: nl conjunctiva ENMT: nl external ears & nose Neck: non-tender, supple Respiratory: clear to auscultation, normal air movement Cardiovascular: regular rate and rhythm Gastrointestinal: other (EMERITA drain in place), surgical scars, tender Musculoskeletal: nl extremities to inspection Extremities: normal pulses Results Result Diagram: 04/09/16 0406 04/09/16 0406 Results 24 hrs Laboratory Tests Test 04/08/16 15:00 04/09/16 04:06 INR International Normalized Ratio 1.29 Prothrombin Time 16.2 H Prothrombin Time Ratio 1.3 Anion Gap 12 Basophils # 0.0 Basophils % 0.0 Blood Urea Nitrogen 16 Calcium Level 7.5 L Carbon Dioxide Level 26 Chloride Level 108 Creatinine 1.01 H Eosinophils # 0.0 Eosinophils % 0.1 Glucose Level 121 # Hematocrit 25.0 #L Hemoglobin 8.3 #L Lymphocytes # 0.6 L Lymphocytes % 8.5 L Mean Corpuscular Hemoglobin 31.9 Mean Corpuscular Hemoglobin Concent 33.2 Mean Corpuscular Volume 96.2 Mean Platelet Volume 9.9 Monocytes # 0.3 Monocytes % 4.3 Neutrophils # 6.4 Neutrophils % 85.4 H Nucleated Red Blood Cells # 0.0 Nucleated Red Blood Cells % 0.0 Platelet Count 163 # Potassium Level 4.2 Red Blood Count 2.60 #L Red Cell Distribution Width 15.8 H Sodium Level 142 White Blood Count 7.5 # Medications Medications Current Medications Acetaminophen/ Hydrocodone Bitart ([place] (5/325)) 1 tab Q6H PRN PO MODERATE PAIN LEVEL 4-6 Last administered on 04/06/16 18:13; Admin Dose 1 TAB; Start at 18:00 Zolpidem Tartrate (Ambien) 5 mg HS PRN PO INSOMNIA Last administered on 23:48; Admin Dose 5 MG; Start 04/01/16 at 22:00 Diphenhydramine HCl (Benadryl) 25 mg Q6H PRN PO ITCHING Last administered on 06:49; Admin Dose 25 MG; Start 04/02/16 at 07:00 Al Hydrox/Mg Hydrox/Simethicone (Mag-Al Plus) 30 ml Q6H PRN PO GASTROINTESTINAL UPSET Last administered on 04/06/16 19:40; Admin Dose 30 ML; Start 04/02/16 at 17:30 Simethicone (Mylicon) 80 mg Q6 PO Last administered on 04/09/16 06:36; Admin Dose 80 MG; Start 04/02/16 at 18:00 Clonidine HCl 1 patch 1 patch Q7D TRANSDERM Last administered on 04/04/16 14: 03; Admin Dose 1 PATCH; Start 04/04/16 at 13:15 Potassium Cl/ Dextrose/Lact Ringer's 1,000 ml @ 150 mls/hr Q6H40M IV Last administered on 04/09/16 09:01; Admin Dose 150 MLS/HR; Start 04/07/16 at 23:30 Cefazolin Sodium (Ancef 1 Gm/50 ml (Pmx)) 50 ml @ 100 mls/hr Q8H IVPB Last administered on 04/09/16 09:01; Admin Dose 100 MLS/HR; Start 04/08/16 at 01:00; Stop 04/09/16 at 17:29 Ondansetron HCl 4 mg 4 mg Q6H PRN IV NAUSEA AND/OR VOMITING Last administered on 04/09/16 06:43; Admin Dose 4 MG; Start 04/07/16 at 22:30 Albumin Human (Alburx) 500 ml @ 250 mls/hr ONCE PRN IVPB U/O BELOW 30 ML/HR X 2 HR; Start 04/07/16 at 22:30 Pantoprazole (Protonix Iv) 40 mg DAILY@06 IV Last administered on 04/09/16 06: 36; Admin Dose 40 MG; Start 04/08/16 at 06:00 Hydromorphone HCl (Dilaudid) 2 mg Q3 PRN IV PAIN Last administered on 04/09/16 09:53; Admin Dose 2 MG; Start 04/08/16 at 15:00 Ketorolac Tromethamine (Toradol) 30 mg Q6H PRN IV PAIN Last administered on 04/08 17:56; Admin Dose 30 MG; Start 04/08/16 at 15:00; Stop 04/09/16 at 15:00 DEMETRA COLUNGA M.D. Apr 09, 2016 12:34
[2016-04-09] MEDS ORDERED: FUROSEMIDE 20 MG INJ IV ONE (19:00)
--- NOTE | 2016-04-09 21:31 | PN ---
Date/Time of Note Date/Time of Note DATE: 04/09/16 TIME: 21:28 Assessment/Plan VTE Prophylaxis VTE Prophylaxis Intervention: SCD's Lines/Catheters IV [facility] Type (from [facility] A Line Urinary Cath still in place: Yes Assessment/Plan Chief Complaint/Hosp Course Ovarian cancer with recurrence would benefit from secondary CRS even though persistent disease because the problem is her chemo was delayed 3 months postop. Informed of need to start chemo nathan postop and will call [facility] Problems: Assessment/Plan A/P- doing reasonable but decrease in H/H mandate transfusion and that we check PT/INR and no Lovenox. Subjective 24 Hr Interval Summary Free Text/Dictation S- Feels OK, no flatus. Not OOB O- Resp- clear CVS- NSR Abd- appropriate tenderness and incision clean Ext- NT mild edema A/P- doing reasonable but decrease in H/H mandate transfusion and that we check PT/INR and no Lovenox. Exam/Review of Systems Vital Signs Vitals Vital Signs Date Time Temp Pulse Resp B/P Pulse Ox O2 Delivery O2 Flow Rate FiO2 04/09/16 18:15 98.2 18 116/72 100 Nasal Cannula 04/09/16 18:00 120 2.0 Intake and Output 04/08/16 04/08/16 04/09/16 14:59 22:59 06:59 Intake Total 600 ml 1250 ml Output Total 570 ml 1440 ml 610 ml Balance -570 ml -840 ml 640 ml Results Result Diagram: 04/09/16 0406 04/09/16 0406 Results 24 hrs Laboratory Tests Test 04/09/16 04:06 04/09/16 11:35 Anion Gap 12 Basophils # 0.0 Basophils % 0.0 Blood Urea Nitrogen 16 Calcium Level 7.5 L Carbon Dioxide Level 26 Chloride Level 108 Creatinine 1.01 H Eosinophils # 0.0 Eosinophils % 0.1 Glucose Level 121 # Hematocrit 25.0 #L Hemoglobin 8.3 #L Lymphocytes # 0.6 L Lymphocytes % 8.5 L Mean Corpuscular Hemoglobin 31.9 Mean Corpuscular Hemoglobin Concent 33.2 Mean Corpuscular Volume 96.2 Mean Platelet Volume 9.9 Monocytes # 0.3 Monocytes % 4.3 Neutrophils # 6.4 Neutrophils % 85.4 H Nucleated Red Blood Cells # 0.0 Nucleated Red Blood Cells % 0.0 Platelet Count 163 # Potassium Level 4.2 Red Blood Count 2.60 #L Red Cell Distribution Width 15.8 H Sodium Level 142 White Blood Count 7.5 # INR International Normalized Ratio 1.57 Prothrombin Time 18.9 H Prothrombin Time Ratio 1.5 Medications Medications Current Medications Acetaminophen/ Hydrocodone Bitart ([place] (5/325)) 1 tab Q6H PRN PO MODERATE PAIN LEVEL 4-6 Last administered on 04/06/16 18:13; Admin Dose 1 TAB; Start at 18:00 Zolpidem Tartrate (Ambien) 5 mg HS PRN PO INSOMNIA Last administered on 23:48; Admin Dose 5 MG; Start 04/01/16 at 22:00 Diphenhydramine HCl (Benadryl) 25 mg Q6H PRN PO ITCHING Last administered on 06:49; Admin Dose 25 MG; Start 04/02/16 at 07:00 Al Hydrox/Mg Hydrox/Simethicone (Mag-Al Plus) 30 ml Q6H PRN PO GASTROINTESTINAL UPSET Last administered on 04/06/16 19:40; Admin Dose 30 ML; Start 04/02/16 at 17:30 Simethicone (Mylicon) 80 mg Q6 PO Last administered on 04/09/16 17:29; Admin Dose 80 MG; Start 04/02/16 at 18:00 Clonidine HCl 1 patch 1 patch Q7D TRANSDERM Last administered on 04/04/16 14: 03; Admin Dose 1 PATCH; Start 04/04/16 at 13:15 Potassium Cl/ Dextrose/Lact Ringer's (D5-Lr + KCl 20 Meq) 1,000 ml @ 150 mls/ hr Q6H40M IV Last administered on 04/09/16 09:01; Admin Dose 150 MLS/HR; Start 04/07/16 at 23:30 Ondansetron HCl 4 mg 4 mg Q6H PRN IV NAUSEA AND/OR VOMITING Last administered on 04/09/16 06:43; Admin Dose 4 MG; Start 04/07/16 at 22:30 Albumin Human (Alburx) 500 ml @ 250 mls/hr ONCE PRN IVPB U/O BELOW 30 ML/HR X 2 HR; Start 04/07/16 at 22:30 Pantoprazole (Protonix Iv) 40 mg DAILY@06 IV Last administered on 04/09/16 06: 36; Admin Dose 40 MG; Start 04/08/16 at 06:00 Hydromorphone HCl (Dilaudid) 2 mg Q3 PRN IV PAIN Last administered on 04/09/16 20:09; Admin Dose 2 MG; Start 04/08/16 at 15:00 ANDI WADDELL MD Apr 09, 2016 21:31
--- NOTE | 2016-04-09 22:37 | OPR ---
Date/Time of Note Date/Time of Note DATE: 04/09/16 TIME: 22:37 Operative Report Free Text/Dictation OPERATIVE REPORT [facility] Name: Mary Jo Ocampo Medical Date: 04/07/16 Preoperative Diagnosis: 1- Recurrent ovarian cancer 2- Hydroureter Postoperative Diagnosis: 1- Same 2- Extensive adhesions 3- Impending/partial small bowel obstruction Procedures: 1- Small bowel resection and anastomosis 2- Secondary cytoreduction 3- Incisional hernia repair Surgeon: Dr. Johnston Structural Draftsman: Dr. Zofia Bolivar Anesthesia: General Indications for surgery: The patient is a 61- year old female with recurrent/persistent ovarian cancer after completing primary therapy but she had a 3 month delay in starting chemotherapy after compete cytoreduction and now evidence of recurrence/ persistence of disease on the basis of elevated markers, radiographic findings, and symptoms for whom a secondary cytoreduction was undertaken after addressing all options with risks and benefits. Findings and Summary After opening and exploration we noted and removed 1500 cc ascites and noted Name: Mary Jo Ocampo Medical upper abdominal disease involving the peritoneal surface throughout and implants throughout the mesentery and some on the serosa and the pelvic disease was confluent and flat with the ascending colon densely adherent to the pelvic sidewall with a significant amount of small intestine extensively involved with metastatic disease and partly obstructed with terminal ileum adherent to the pelvis but open and used for the anastamosis. At the completion of the procedure which was somewhat palliative widespread < 1cm implants were left behind and thin confluent disease that could not be technically addressed. Procedure: After being prepped and draped in the usual manner a midline skin incision was made of appropriate length. The electrocautery was then used to dissect thru the adipose tissue to the level of the fascia. The fascia was elevated and entered with a scalpel and traction/counter-traction, and upon entering the peritoneal cavity approximately 1500ml ascetic fluid was observed and the opening was extended with the scalpel. At this time adhesions of intestine to the anterior abdominal wall were lysed with great care and any sero-muscular defects encountered were repaired with interrupted 3-0 Silk suture, although the extent of metastatic disease and desmoplastic reaction with scar tissue suggests the possibility widespread metastatic disease. Additional enterolysis was accomplished throughout the abdomen and in the process exploration was accomplished an as we searched the abdominal and pelvic contents we found that the left upper quadrant metastatic disease involved the minimal amount of residual gastro-colic ligament which was removed. With ongoing enterolysis exploration of the central abdomen revealed numerous serosal and mesentery 1-10 mm implants with small bowel kinked and densely adherent to the pelvic sidewall and in the region of the ileum extensive metastatic disease was noted with a partial obstruction. We then placed a aortic Bellfower retractor and adjusted Bakari arms. Additional enterolysis was accomplished with sharp [facility] and digitally and due to gross metastatic disease and a partial obstruction the aforementioned small bowel was resected. At this time, the segment of small intestine densely involved with disease and partly obstructed was addressed. The involved bowel was from the mesentery proximal and distal to the bulky disease with a tonsil clamp used without incident, with the distal segment being distal ileum with the adjacent segment being densely adherent to the cul-de-sac but it was not mobilized to avoid inevitable enterotomy. Of note, prior to the resection on an enterotomy the distal segment was confirmed open with a Calvo inserted proximally in the segment to be removed.. The bowel to be removed was transected both proximally and distally with a 75 mm CLEVE stapler using regular santos. The mesentery was divided using a Ligasure successively, cauterizing in duplicate. Thin and vascular areas of mesentery were also divided with the Ligasure. Any bleeding areas were addressed with 3-0 silk sutures. The specimen was removed and anastomosis deferred until the pelvic procedure competed to avoid manipulation. Although a retroperitoneal exploration was considered due to hydroureter, concern about cecal and ascending colon issues due to fine confluent metastatic disease and desmoplastic reaction precluded the procedure. Further exploration showed fine confluent metastatic disease and desmoplastic reaction on the transverse colon with kinking and an impending transverse colon bowel obstruction. Hence, the metastatic disease was addressed with sharp dissection and the CUSA and multiple sero-muscular defects encountered were repaired with interrupted 3-0 Silk suture and some with continuous 4-0 Vicryl suture and interrupted 3-0 Silk suture. At this time previously resected small bowel segments were reanastamosed. Small enterotomies were created in both segments of bowel and the 75mm CLEVE stapler inserted. An attempt was made to partly joined the bowel with the 75 mm CLEVE stapler but the stapler would not completely fire due to a defect and had to be redone. The damaged bowel due to the defective CLEVE to be removed was transected both proximally and distally with a 75 mm CLEVE Name: Mary Jo Ocampo [facility] stapler using Green santos. The mesentery was divided using a Ligasure successively, cauterizing in duplicate. Any bleeding areas were addressed with 3 -0 silk sutures. At this time previously resected small bowel segments were reanastamosed. Small enterotomies were created in both segments of bowel and the CLEVE stapler inserted, including the terminal ileum. The bowel was than partly joined with the 80 mm CLEVE stapler and the enterotomy closed with a 60 mm TA 60 stapler. The mesenteric defect was closed with multiple sutures of 3-0 silk. The anastamosis was reinforced with a suture if 3-0 silk as needed and appropriate. Following the anastamosis the small bowel was run and any nodularity in the mesentery was ablated with the argon beam peoplesoft consultant if larger that 5 mm and any sero-muscular defects encountered were repaired with interrupted 3-0 Silk suture. At this time, after all packing was removed, the abdomen thoroughly irrigated, hemostasis confirmed, and a Venkatesh drain placed. A figure of eight suture was placed at the caudal apex of the incision with 1- Prolene and used for exposure by elevating with a Pean clamp. Multiple sutures of interrupted 1-Prolene were continued to the supra-pubic area. Sepra film was used. The final cephlad suture was tied appropriately, after which the figure of eight was tied. The subcutaneous tissue was irrigated and the skin was closed with 3-0 Vicryl suture and skin clips. The sponge, needle, and instrument were correct two times. The estimated blood loss was 400 cc. The patient tolerated the procedure well and left the OR in good condition. Due to disease distribution 5mm disease was left and small confluent disease subject to interpretation. Andi Johnston M.D. ANDI JOHNSTON MD Apr 09, 2016 22:37
[2016-04-10] MEDS: D5-LR + KCL 20 MEQ 1,000 ML IV SCH ×5 (01:41→22:14)
[2016-04-10] MEDS: HYDROmorphONE 2 MG/ML SYG IV PRN ×7 (02:57→21:22)
[2016-04-10] MEDS: PANTOPRAZOLE 40 MG INJ IV SCH (05:22)
[2016-04-10 05:24] LABS: ADD SCAN DIFF NO
[2016-04-10 05:43] LABS: ABNORMAL IP MESSAGE 1; BASOPHILS % 0.2 % (0.0-2.0); EOSINOPHILS % 0.7 % (0.0-7.0); HEMATOCRIT 30.6 % (37.0-47.0); HEMOGLOBIN 10.1 g/dl (12.0-16.0); LYMPHOCYTES # 0.6 10^3/ul (0.8-2.9); LYMPHOCYTES % 10.6 % (15.0-51.0); MEAN CORPUSCULAR HEMOGLOBIN 31.2 pg (29.0-33.0); MEAN CORPUSCULAR VOLUME 94.4 fl (82.0-101.0); MONOCYTE # 0.3 10^3/ul (0.3-0.9); MONOCYTES % 5.6 % (0.0-11.0); NEUTROPHIL # 4.9 10^3/ul (1.6-7.5); NEUTROPHILS % 82.2 % (39.0-77.0); PLATELET COUNT 130 10^3/UL (140-415); RED BLOOD COUNT 3.24 10^6/ul (4.20-5.40); RED CELL DISTRIBUTION WIDTH 15.9 % (11.5-14.5); WHITE BLOOD COUNT 5.9 10^3/ul (4.8-10.8)
[2016-04-10 06:30] LABS: ALBUMIN 1.9 g/dl (3.3-4.9)
[2016-04-10 06:31] LABS: POTASSIUM 3.6 mmol/L (3.5-5.1)
[2016-04-10 06:32] LABS: CREATININE 0.91 mg/dl (0.44-1.00)
[2016-04-10 06:33] LABS: ALBUMIN/GLOBULIN RATIO 0.82; BILIRUBIN,INDIRECT 0.8 mg/dl (0-1.1); BILIRUBIN,TOTAL 0.8 mg/dl (0.2-1.3); TOTAL PROTEIN 4.2 g/dl (6.1-8.1)
[2016-04-10 06:34] LABS: CALCIUM 7.8 mg/dl (8.4-10.2)
[2016-04-10 07:57] VITALS: BP 110/63; RESP 16
--- NOTE | 2016-04-10 11:54 | CONS ---
Date/Time of Note Date/Time of Note DATE: 04/10/16 TIME: 11:48 Assessment/Plan Assessment/Plan Chief Complaint/Hosp Course 61-year-old female with stage IIIB ovarian cancer s/p surgery by Dr. Johnston in May 2015 and 6 cycles of carbo/taxol with persistently elevated CA125 (now 39.6), recently admitted to outside hospital with CT concerning for persistent disease, now admitted with 1 month of left flank pain. Recent PET/ CT 03-26-16 showed progressive disease with large volume of peripherally FDG avid loculated abdominal and pelvic ascites with increased omental caking and peritoneal nodularity noted throughout the abdomen and pelvis consistent with progressive recurrent ovarian carcinoma. Pt is now s/p optimal CRS for recurrent disease. She was left with < 5mm of residual disease. She is currently POD 3 - cont post op care per surgery - plan to start adjuvant chemotherapy in house 1 week post op or when cleared by [facility] onc. plan to given 1 dose of Gemcitabine/ Cisplatin - Continue pain control per primary team. pt on Dilaudid - patient responded well to blood transfusion ordered for drop in H/H Approximately 4 min were spent at patient's bedside and in coordination of her care Problems: Consultation Date/Type/Reason Admit Date/Time Apr 02, 2016 at 10:07 Initial Consult Date 04/02/16 Type of Consultation: Hematology/Oncology Reason for Consultation recurrent ovarian cancer Referring Provider: BRIAN ZAZUETA MD 24 HR Interval Summary Free Text/Dictation pt is sp optimal debulking surgery. still having pain requiring Dilaudid. intraoperatively pt was found with 1500cc of ascites as well as perineal implants throughout the mesentery and intestine. pt was found with a partly obstructed terminal ileum. pt remains NPO Exam/Review of Systems Vital Signs Vitals Vital Signs Date Time Temp Pulse Resp B/P Pulse Ox O2 Delivery O2 Flow Rate FiO2 04/10/16 07:57 98.8 72 16 110/63 99 04/09/16 21:27 Nasal Cannula 2.0 Intake and Output 04/09/16 04/09/16 04/10/16 15:00 23:00 07:00 Intake Total 1000 ml 50 ml 1650 ml Output Total 500 ml 165 ml 2720 ml Balance 500 ml -115 ml -1070 ml Exam Constitutional: alert, distress, frail, oriented Psych: depression, no complaints Head: atraumatic, normocephalic Eyes: nl conjunctiva ENMT: nl external ears & nose, other (NGT in place) Neck: non-tender, supple Respiratory: clear to auscultation, normal air movement Cardiovascular: nl pulses, regular rate and rhythm Gastrointestinal: soft, surgical scars, tender Musculoskeletal: nl extremities to inspection Results Result Diagram: 04/10/168 04/10/16 0458 Results 24 hrs Laboratory Tests Test 04/10/16 04:58 Alanine Aminotransferase (ALT/SGPT) 26 Albumin 1.9 L Albumin/Globulin Ratio 0.82 Alkaline Phosphatase 79 Anion Gap 11 Aspartate Amino Transf (AST/SGOT) 25 Basophils # 0.0 Basophils % 0.2 Blood Urea Nitrogen 18 Calcium Level 7.8 L Carbon Dioxide Level 28 Chloride Level 106 Creatinine 0.91 Direct Bilirubin 0.00 Eosinophils # 0.0 Eosinophils % 0.7 Globulin 2.30 Glucose Level 97 Hematocrit 30.6 #L Hemoglobin 10.1 #L Indirect Bilirubin 0.8 Lymphocytes # 0.6 L Lymphocytes % 10.6 L Mean Corpuscular Hemoglobin 31.2 Mean Corpuscular Hemoglobin Concent 33.0 Mean Corpuscular Volume 94.4 Mean Platelet Volume 10.0 Monocytes # 0.3 Monocytes % 5.6 Neutrophils # 4.9 Neutrophils % 82.2 H Nucleated Red Blood Cells # 0.0 Nucleated Red Blood Cells % 0.0 Platelet Count 130 #L Potassium Level 3.6 Red Blood Count 3.24 #L Red Cell Distribution Width 15.9 H Sodium Level 141 Total Bilirubin 0.8 Total Protein 4.2 L White Blood Count 5.9 # Medications Medications Current Medications Acetaminophen/ Hydrocodone Bitart ([place] (5/325)) 1 tab Q6H PRN PO MODERATE PAIN LEVEL 4-6 Last administered on 04/06/16 18:13; Admin Dose 1 TAB; Start at 18:00 Zolpidem Tartrate (Ambien) 5 mg HS PRN PO INSOMNIA Last administered on 23:48; Admin Dose 5 MG; Start 04/01/16 at 22:00 Diphenhydramine HCl (Benadryl) 25 mg Q6H PRN PO ITCHING Last administered on 06:49; Admin Dose 25 MG; Start 04/02/16 at 07:00 Al Hydrox/Mg Hydrox/Simethicone (Mag-Al Plus) 30 ml Q6H PRN PO GASTROINTESTINAL UPSET Last administered on 04/06/16 19:40; Admin Dose 30 ML; Start 04/02/16 at 17:30 Simethicone (Mylicon) 80 mg Q6 PO Last administered on 04/09/16 17:29; Admin Dose 80 MG; Start 04/02/16 at 18:00 Clonidine HCl 1 patch 1 patch Q7D TRANSDERM Last administered on 04/04/16 14: 03; Admin Dose 1 PATCH; Start 04/04/16 at 13:15 Potassium Cl/ Dextrose/Lact Ringer's (D5-Lr + KCl 20 Meq) 1,000 ml @ 150 mls/ hr Q6H40M IV Last administered on 04/10/16 09:01; Admin Dose 150 MLS/HR; Start 04/07/16 at 23:30 Ondansetron HCl 4 mg 4 mg Q6H PRN IV NAUSEA AND/OR VOMITING Last administered on 04/09/16 06:43; Admin Dose 4 MG; Start 04/07/16 at 22:30 Albumin Human (Alburx) 500 ml @ 250 mls/hr ONCE PRN IVPB U/O BELOW 30 ML/HR X 2 HR; Start 04/07/16 at 22:30 Pantoprazole (Protonix Iv) 40 mg DAILY@06 IV Last administered on 04/10/16 05: 22; Admin Dose 40 MG; Start 04/08/16 at 06:00 Hydromorphone HCl (Dilaudid) 2 mg Q3 PRN IV PAIN Last administered on 04/10/16 08:51; Admin Dose 2 MG; Start 04/08/16 at 15:00 DEMETRA COLUNGA M.D. Apr 10, 2016 11:54
[2016-04-10 12:16] VITALS: BP 143/80; PULSE 90; RESP 20
--- NOTE | 2016-04-10 12:57 | PN ---
Date/Time of Note Date/Time of Note DATE: 04/10/16 TIME: 12:50 Assessment/Plan VTE Prophylaxis VTE Prophylaxis Intervention: SCD's Lines/Catheters IV Catheter Type (from Nrs): PORTACATH Urinary Cath still in place: Yes Reason Cath still needed: urinary retention Assessment/Plan Chief Complaint/Hosp Course ASSESSMENT AND PLAN: - Progressive recurrent ovarian carcinoma. Status post chemotherapy. Dr. Foy is following in hematology/oncology consultation. Dr. Johnston is following from a surgery standpoint. S/p bowel resection 04/07. Continue follow -up per general surgery recommendations. Continue n.p.o. IV fluids. - Intractable abdominal pain and nausea secondary to #1, resolved. Continue Dilaudid p.r.n. for pain and Zofran p.r.n. for nausea. Continue Lovenox for deep venous thrombosis prophylaxis and Protonix for peptic ulcer disease prophylaxis. Further recommendations based on clinical course. Plan of care was discussed with Dr. Bravo. Problems: Subjective 24 Hr Interval Summary Free Text/Dictation Patient is postop day #3. Pain is well controlled, negative flatus. NG tube to low intermittent wall suction. Patient denies any fever pain is well controlled. Patient is encouraged to use incentive spirometer and get out of bed. Exam/Review of Systems Vital Signs Vitals Vital Signs Date Time Temp Pulse Resp B/P Pulse Ox O2 Delivery O2 Flow Rate FiO2 04/10/16 12:16 90 20 143/80 97 Nasal Cannula 2.0 04/10/16 07:57 98.8 Intake and Output 04/09/16 04/09/16 04/10/16 15:00 23:00 07:00 Intake Total 1000 ml 50 ml 1650 ml Output Total 500 ml 165 ml 2720 ml Balance 500 ml -115 ml -1070 ml Exam PHYSICAL ASSESSMENT: GENERAL: Well-developed, well-nourished female currently is awake, alert. HEENT: Head is atraumatic, normocephalic. NGT to LWS. NECK: Supple, no cervical lymphadenopathy, no thyromegaly. CHEST: Lungs clear bilaterally. There is no rhonchi, wheezes, rales noted. CARDIOVASCULAR: Normal S1, S2. No murmurs, gallops, clicks, rubs noted. ABDOMEN: Round, soft, s/p surgery with midline incision, EMERITA. SKIN: There is no rash, petechiae noted. EXTREMITIES: No edema, clubbing, cyanosis. Pulses equal bilaterally 2+. Mild edema. SKIN: There is no rash or petechiae noted. NEUROLOGICAL: The patient is awake, alert and oriented x4. Results Result Diagram: 04/10/16 0458 04/10/16 0458 Results 24 hrs Laboratory Tests Test 04/10/16 04:58 Alanine Aminotransferase (ALT/SGPT) 26 Albumin 1.9 L Albumin/Globulin Ratio 0.82 Alkaline Phosphatase 79 Anion Gap 11 Aspartate Amino Transf (AST/SGOT) 25 Basophils # 0.0 Basophils % 0.2 Blood Urea Nitrogen 18 Calcium Level 7.8 L Carbon Dioxide Level 28 Chloride Level 106 Creatinine 0.91 Direct Bilirubin 0.00 Eosinophils # 0.0 Eosinophils % 0.7 Globulin 2.30 Glucose Level 97 Hematocrit 30.6 #L Hemoglobin 10.1 #L Indirect Bilirubin 0.8 Lymphocytes # 0.6 L Lymphocytes % 10.6 L Mean Corpuscular Hemoglobin 31.2 Mean Corpuscular Hemoglobin Concent 33.0 Mean Corpuscular Volume 94.4 Mean Platelet Volume 10.0 Monocytes # 0.3 Monocytes % 5.6 Neutrophils # 4.9 Neutrophils % 82.2 H Nucleated Red Blood Cells # 0.0 Nucleated Red Blood Cells % 0.0 Platelet Count 130 #L Potassium Level 3.6 Red Blood Count 3.24 #L Red Cell Distribution Width 15.9 H Sodium Level 141 Total Bilirubin 0.8 Total Protein 4.2 L White Blood Count 5.9 # Medications Medications Current Medications Acetaminophen/ Hydrocodone Bitart ([place] (5/325)) 1 tab Q6H PRN PO MODERATE PAIN LEVEL 4-6 Last administered on 04/06/16 18:13; Admin Dose 1 TAB; Start at 18:00 Zolpidem Tartrate (Ambien) 5 mg HS PRN PO INSOMNIA Last administered on 23:48; Admin Dose 5 MG; Start 04/01/16 at 22:00 Diphenhydramine HCl (Benadryl) 25 mg Q6H PRN PO ITCHING Last administered on 06:49; Admin Dose 25 MG; Start 04/02/16 at 07:00 Al Hydrox/Mg Hydrox/Simethicone (Mag-Al Plus) 30 ml Q6H PRN PO GASTROINTESTINAL UPSET Last administered on 04/06/16 19:40; Admin Dose 30 ML; Start 04/02/16 at 17:30 Simethicone (Mylicon) 80 mg Q6 PO Last administered on 04/09/16 17:29; Admin Dose 80 MG; Start 04/02/16 at 18:00 Clonidine HCl 1 patch 1 patch Q7D TRANSDERM Last administered on 04/04/16 14: 03; Admin Dose 1 PATCH; Start 04/04/16 at 13:15 Potassium Cl/ Dextrose/Lact Ringer's (D5-Lr + KCl 20 Meq) 1,000 ml @ 150 mls/ hr Q6H40M IV Last administered on 04/10/16 09:01; Admin Dose 150 MLS/HR; Start 04/07/16 at 23:30 Ondansetron HCl 4 mg 4 mg Q6H PRN IV NAUSEA AND/OR VOMITING Last administered on 04/09/16 06:43; Admin Dose 4 MG; Start 04/07/16 at 22:30 Albumin Human (Alburx) 500 ml @ 250 mls/hr ONCE PRN IVPB U/O BELOW 30 ML/HR X 2 HR; Start 04/07/16 at 22:30 Pantoprazole (Protonix Iv) 40 mg DAILY@06 IV Last administered on 04/10/16 05: 22; Admin Dose 40 MG; Start 04/08/16 at 06:00 Hydromorphone HCl (Dilaudid) 2 mg Q3 PRN IV PAIN Last administered on 04/10/16 12:10; Admin Dose 2 MG; Start 04/08/16 at 15:00 LARRY MEJIA Apr 10, 2016 12:57
[2016-04-10 19:08] VITALS: BP 134/65; RESP 14
--- NOTE | 2016-04-10 22:13 | PN ---
Date/Time of Note Date/Time of Note DATE: 04/10/16 TIME: 22:12 Assessment/Plan VTE Prophylaxis VTE Prophylaxis Intervention: SCD's Lines/Catheters IV Catheter Type (from Nrs): Portacath Urinary Cath still in place: Yes Assessment/Plan Chief Complaint/Hosp Course Ovarian cancer with recurrence would benefit from secondary CRS even though persistent disease because the problem is her chemo was delayed 3 months postop. Informed of need to start chemo nathan postop and will call [facility] Problems: Subjective 24 Hr Interval Summary Free Text/Dictation S- Feels better less pain, no flatus. Not OOB O- Resp- clear CVS- NSR Abd- appropriate tenderness and incision clean Ext- NT mild edema A/P- doing reasonable and concur OOB more Exam/Review of Systems Vital Signs Vitals Vital Signs Date Time Temp Pulse Resp B/P Pulse Ox O2 Delivery O2 Flow Rate FiO2 04/10/16 19:08 98.2 82 14 134/65 96 04/10/16 12:16 Nasal Cannula 2.0 Intake and Output 04/09/16 04/09/16 04/10/16 15:00 23:00 07:00 Intake Total 1000 ml 50 ml 1650 ml Output Total 500 ml 165 ml 2720 ml Balance 500 ml -115 ml -1070 ml Results Result Diagram: 04/10/16 0458 04/10/16 0458 Results 24 hrs Laboratory Tests Test 04/10/16 04:58 Alanine Aminotransferase (ALT/SGPT) 26 Albumin 1.9 L Albumin/Globulin Ratio 0.82 Alkaline Phosphatase 79 Anion Gap 11 Aspartate Amino Transf (AST/SGOT) 25 Basophils # 0.0 Basophils % 0.2 Blood Urea Nitrogen 18 Calcium Level 7.8 L Carbon Dioxide Level 28 Chloride Level 106 Creatinine 0.91 Direct Bilirubin 0.00 Eosinophils # 0.0 Eosinophils % 0.7 Globulin 2.30 Glucose Level 97 Hematocrit 30.6 #L Hemoglobin 10.1 #L Indirect Bilirubin 0.8 Lymphocytes # 0.6 L Lymphocytes % 10.6 L Mean Corpuscular Hemoglobin 31.2 Mean Corpuscular Hemoglobin Concent 33.0 Mean Corpuscular Volume 94.4 Mean Platelet Volume 10.0 Monocytes # 0.3 Monocytes % 5.6 Neutrophils # 4.9 Neutrophils % 82.2 H Nucleated Red Blood Cells # 0.0 Nucleated Red Blood Cells % 0.0 Platelet Count 130 #L Potassium Level 3.6 Red Blood Count 3.24 #L Red Cell Distribution Width 15.9 H Sodium Level 141 Total Bilirubin 0.8 Total Protein 4.2 L White Blood Count 5.9 # Medications Medications Current Medications Acetaminophen/ Hydrocodone Bitart ([place] (5/325)) 1 tab Q6H PRN PO MODERATE PAIN LEVEL 4-6 Last administered on 04/06/16 18:13; Admin Dose 1 TAB; Start at 18:00 Zolpidem Tartrate (Ambien) 5 mg HS PRN PO INSOMNIA Last administered on 23:48; Admin Dose 5 MG; Start 04/01/16 at 22:00 Diphenhydramine HCl (Benadryl) 25 mg Q6H PRN PO ITCHING Last administered on 06:49; Admin Dose 25 MG; Start 04/02/16 at 07:00 Al Hydrox/Mg Hydrox/Simethicone (Mag-Al Plus) 30 ml Q6H PRN PO GASTROINTESTINAL UPSET Last administered on 04/06/16 19:40; Admin Dose 30 ML; Start 04/02/16 at 17:30 Simethicone (Mylicon) 80 mg Q6 PO Last administered on 04/09/16 17:29; Admin Dose 80 MG; Start 04/02/16 at 18:00 Clonidine HCl 1 patch 1 patch Q7D TRANSDERM Last administered on 04/04/16 14: 03; Admin Dose 1 PATCH; Start 04/04/16 at 13:15 Potassium Cl/ Dextrose/Lact Ringer's (D5-Lr + KCl 20 Meq) 1,000 ml @ 150 mls/ hr Q6H40M IV Last administered on 04/10/16 15:45; Admin Dose 150 MLS/HR; Start 04/07/16 at 23:30 Ondansetron HCl 4 mg 4 mg Q6H PRN IV NAUSEA AND/OR VOMITING Last administered on 04/09/16 06:43; Admin Dose 4 MG; Start 04/07/16 at 22:30 Albumin Human (Alburx) 500 ml @ 250 mls/hr ONCE PRN IVPB U/O BELOW 30 ML/HR X 2 HR; Start 04/07/16 at 22:30 Pantoprazole (Protonix Iv) 40 mg DAILY@06 IV Last administered on 04/10/16 05: 22; Admin Dose 40 MG; Start 04/08/16 at 06:00 Hydromorphone HCl (Dilaudid) 2 mg Q3 PRN IV PAIN Last administered on 04/10/16 21:22; Admin Dose 2 MG; Start 04/08/16 at 15:00 ANDI WADDELL MD Apr 10, 2016 22:13
[2016-04-11] MEDS: D5-LR + KCL 20 MEQ 1,000 ML IV SCH ×5 (00:50→20:50)
[2016-04-11] MEDS: HYDROmorphONE 2 MG/ML SYG IV PRN ×8 (01:05→21:44)
[2016-04-11 05:08] LABS: ADD SCAN DIFF NO
[2016-04-11 05:22] LABS: EOSINOPHILS # 0.1 10^3/ul (0.0-0.5); HEMATOCRIT 36.1 % (37.0-47.0); HEMOGLOBIN 11.7 g/dl (12.0-16.0); LYMPHOCYTES # 0.6 10^3/ul (0.8-2.9); LYMPHOCYTES % 10.5 % (15.0-51.0); MEAN CORPUSCULAR HGB CONC 32.4 g/dl (32.0-37.0); MEAN CORPUSCULAR VOLUME 95.8 fl (82.0-101.0); MEAN PLATELET VOLUME 10.1 fl (7.4-10.4); MONOCYTE # 0.5 10^3/ul (0.3-0.9); MONOCYTES % 7.8 % (0.0-11.0); NEUTROPHIL # 4.9 10^3/ul (1.6-7.5); NEUTROPHILS % 80.5 % (39.0-77.0); PLATELET COUNT 149 10^3/UL (140-415); RED BLOOD COUNT 3.77 10^6/ul (4.20-5.40); RED CELL DISTRIBUTION WIDTH 15.7 % (11.5-14.5); WHITE BLOOD COUNT 6.1 10^3/ul (4.8-10.8)
[2016-04-11 05:47] LABS: POTASSIUM 3.9 mmol/L (3.5-5.1)
[2016-04-11 05:50] LABS: CREATININE 0.72 mg/dl (0.44-1.00)
[2016-04-11 05:51] LABS: CALCIUM 8.1 mg/dl (8.4-10.2)
[2016-04-11] MEDS: PANTOPRAZOLE 40 MG INJ IV SCH (06:48)
[2016-04-11 07:31] VITALS: BP 128/98; RESP 18
--- NOTE | 2016-04-11 11:03 | PN ---
Date/Time of Note Date/Time of Note DATE: 04/11/16 TIME: 11:02 Assessment/Plan VTE Prophylaxis VTE Prophylaxis Intervention: LMWH Lines/Catheters IV Catheter Type (from Nrs): Portacath Urinary Cath still in place: Yes Reason Cath still needed: skin wounds contaminated by urine Assessment/Plan Chief Complaint/Hosp Course - Progressive recurrent ovarian carcinoma. Status post chemotherapy. Dr. Foy is following in hematology/oncology consultation. Dr. Johnston is following from a surgery standpoint. S/p bowel resection 04/07. Continue follow -up per general surgery recommendations. Continue n.p.o. IV fluids. - Intractable abdominal pain and nausea secondary to #1, resolved. Continue Dilaudid p.r.n. for pain and Zofran p.r.n. for nausea. Continue Lovenox for deep venous thrombosis prophylaxis and Protonix for peptic ulcer disease prophylaxis. Problems: Subjective 24 Hr Interval Summary Free Text/Dictation Patient denies abdominal pain but still not tolerating oral nutrition Exam/Review of Systems Vital Signs Vitals Vital Signs Date Time Temp Pulse Resp B/P Pulse Ox O2 Delivery O2 Flow Rate FiO2 04/11/16 07:31 98.1 88 18 128/98 95 04/10/16 12:16 Nasal Cannula 2.0 Intake and Output 04/10/16 04/10/16 04/11/16 15:00 23:00 07:00 Intake Total 2150 ml 1000 ml Output Total 710 ml 730 ml Balance 1440 ml 270 ml Exam Constitutional: well developed Head: atraumatic, normocephalic Neck: supple Cardiovascular: regular rate and rhythm Gastrointestinal: non-tender, soft Extremities: normal pulses Results Result Diagram: 04/11/16 0410 04/11/16 0410 Results 24 hrs Laboratory Tests Test 04/11/16 04:10 Anion Gap 11 Basophils # 0.0 Basophils % 0.0 Blood Urea Nitrogen 15 Calcium Level 8.1 L Carbon Dioxide Level 29 Chloride Level 107 Creatinine 0.72 Eosinophils # 0.1 Eosinophils % 1.0 Glucose Level 128 Hematocrit 36.1 L Hemoglobin 11.7 L Lymphocytes # 0.6 L Lymphocytes % 10.5 L Mean Corpuscular Hemoglobin 31.0 Mean Corpuscular Hemoglobin Concent 32.4 Mean Corpuscular Volume 95.8 Mean Platelet Volume 10.1 Monocytes # 0.5 Monocytes % 7.8 Neutrophils # 4.9 Neutrophils % 80.5 H Nucleated Red Blood Cells # 0.0 Nucleated Red Blood Cells % 0.0 Platelet Count 149 Potassium Level 3.9 Red Blood Count 3.77 L Red Cell Distribution Width 15.7 H Sodium Level 143 White Blood Count 6.1 Medications Medications Current Medications Acetaminophen/ Hydrocodone Bitart ([place] (5/325)) 1 tab Q6H PRN PO MODERATE PAIN LEVEL 4-6 Last administered on 04/06/16 18:13; Admin Dose 1 TAB; Start at 18:00 Zolpidem Tartrate (Ambien) 5 mg HS PRN PO INSOMNIA Last administered on 23:48; Admin Dose 5 MG; Start 04/01/16 at 22:00 Diphenhydramine HCl (Benadryl) 25 mg Q6H PRN PO ITCHING Last administered on 06:49; Admin Dose 25 MG; Start 04/02/16 at 07:00 Al Hydrox/Mg Hydrox/Simethicone (Mag-Al Plus) 30 ml Q6H PRN PO GASTROINTESTINAL UPSET Last administered on 04/06/16 19:40; Admin Dose 30 ML; Start 04/02/16 at 17:30 Simethicone (Mylicon) 80 mg Q6 PO Last administered on 04/09/16 17:29; Admin Dose 80 MG; Start 04/02/16 at 18:00 Clonidine HCl 1 patch 1 patch Q7D TRANSDERM Last administered on 04/04/16 14: 03; Admin Dose 1 PATCH; Start 04/04/16 at 13:15 Potassium Cl/ Dextrose/Lact Ringer's (D5-Lr + KCl 20 Meq) 1,000 ml @ 150 mls/ hr Q6H40M IV Last administered on 04/11/16 04:51; Admin Dose 150 MLS/HR; Start 04/07/16 at 23:30 Ondansetron HCl 4 mg 4 mg Q6H PRN IV NAUSEA AND/OR VOMITING Last administered on 04/09/16 06:43; Admin Dose 4 MG; Start 04/07/16 at 22:30 Albumin Human (Alburx) 500 ml @ 250 mls/hr ONCE PRN IVPB U/O BELOW 30 ML/HR X 2 HR; Start 04/07/16 at 22:30 Pantoprazole (Protonix Iv) 40 mg DAILY@06 IV Last administered on 04/11/16 06: 48; Admin Dose 40 MG; Start 04/08/16 at 06:00 Hydromorphone HCl (Dilaudid) 2 mg Q3 PRN IV PAIN Last administered on 04/11/16 09:55; Admin Dose 2 MG; Start 04/08/16 at 15:00 MELISSA RUGGIERO Apr 11, 2016 11:03
[2016-04-11 13:23] VITALS: BP 157/84; PULSE 71; RESP 18
[2016-04-11] MEDS: CLONIDINE 0.2 MG/24 HR PATCH TRANSDERM SCH (13:23)
[2016-04-11 19:00] VITALS: BP 137/73; RESP 18
--- NOTE | 2016-04-11 20:48 | PN ---
Date/Time of Note Date/Time of Note DATE: 04/11/16 TIME: 20:46 Assessment/Plan VTE Prophylaxis VTE Prophylaxis Intervention: SCD's Lines/Catheters IV Catheter Type (from Nrs): PORTACATH Urinary Cath still in place: Yes Assessment/Plan Chief Complaint/Hosp Course Ovarian cancer with recurrence would benefit from secondary CRS even though persistent disease because the problem is her chemo was delayed 3 months postop. Informed of need to start chemo nathan postop and will call [facility] Problems: Assessment/Plan A/P- doing reasonable. OOB more Subjective 24 Hr Interval Summary Free Text/Dictation S- Feels better less pain, no flatus yet. Not OOB O- Resp- clear CVS- NSR Abd- appropriate tenderness and incision clean Ext- NT mild edema A/P- doing reasonable. OOB more Exam/Review of Systems Vital Signs Vitals Vital Signs Date Time Temp Pulse Resp B/P Pulse Ox O2 Delivery O2 Flow Rate FiO2 04/11/16 19:00 98.8 88 18 137/73 91 04/11/16 13:23 Room Air 04/10/16 12:16 2.0 Intake and Output 04/10/16 04/10/16 04/11/16 15:00 23:00 07:00 Intake Total 2150 ml 1000 ml Output Total 710 ml 730 ml Balance 1440 ml 270 ml Results Result Diagram: 04/11/16 0410 04/11/16 0410 Results 24 hrs Laboratory Tests Test 04/11/16 04:10 Anion Gap 11 Basophils # 0.0 Basophils % 0.0 Blood Urea Nitrogen 15 Calcium Level 8.1 L Carbon Dioxide Level 29 Chloride Level 107 Creatinine 0.72 Eosinophils # 0.1 Eosinophils % 1.0 Glucose Level 128 Hematocrit 36.1 L Hemoglobin 11.7 L Lymphocytes # 0.6 L Lymphocytes % 10.5 L Mean Corpuscular Hemoglobin 31.0 Mean Corpuscular Hemoglobin Concent 32.4 Mean Corpuscular Volume 95.8 Mean Platelet Volume 10.1 Monocytes # 0.5 Monocytes % 7.8 Neutrophils # 4.9 Neutrophils % 80.5 H Nucleated Red Blood Cells # 0.0 Nucleated Red Blood Cells % 0.0 Platelet Count 149 Potassium Level 3.9 Red Blood Count 3.77 L Red Cell Distribution Width 15.7 H Sodium Level 143 White Blood Count 6.1 Medications Medications Current Medications Acetaminophen/ Hydrocodone Bitart ([place] (5/325)) 1 tab Q6H PRN PO MODERATE PAIN LEVEL 4-6 Last administered on 04/06/16 18:13; Admin Dose 1 TAB; Start at 18:00 Zolpidem Tartrate (Ambien) 5 mg HS PRN PO INSOMNIA Last administered on 23:48; Admin Dose 5 MG; Start 04/01/16 at 22:00 Diphenhydramine HCl (Benadryl) 25 mg Q6H PRN PO ITCHING Last administered on 06:49; Admin Dose 25 MG; Start 04/02/16 at 07:00 Al Hydrox/Mg Hydrox/Simethicone (Mag-Al Plus) 30 ml Q6H PRN PO GASTROINTESTINAL UPSET Last administered on 04/06/16 19:40; Admin Dose 30 ML; Start 04/02/16 at 17:30 Simethicone (Mylicon) 80 mg Q6 PO Last administered on 04/09/16 17:29; Admin Dose 80 MG; Start 04/02/16 at 18:00 Clonidine HCl 1 patch 1 patch Q7D TRANSDERM Last administered on 04/11/16 13:23 ; Admin Dose 1 PATCH; Start 04/04/16 at 13:15 Potassium Cl/ Dextrose/Lact Ringer's (D5-Lr + KCl 20 Meq) 1,000 ml @ 150 mls/ hr Q6H40M IV Last administered on 04/11/16 18:21; Admin Dose 150 MLS/HR; Start 04/07/16 at 23:30 Ondansetron HCl 4 mg 4 mg Q6H PRN IV NAUSEA AND/OR VOMITING Last administered on 04/09/16 06:43; Admin Dose 4 MG; Start 04/07/16 at 22:30 Albumin Human (Alburx) 500 ml @ 250 mls/hr ONCE PRN IVPB U/O BELOW 30 ML/HR X 2 HR; Start 04/07/16 at 22:30 Pantoprazole (Protonix Iv) 40 mg DAILY@06 IV Last administered on 04/11/16 06: 48; Admin Dose 40 MG; Start 04/08/16 at 06:00 Hydromorphone HCl (Dilaudid) 2 mg Q3 PRN IV PAIN Last administered on 04/11/16t 18:43; Admin Dose 2 MG; Start 04/08/16 at 15:00 ANDI WADDELL MD Apr 11, 2016 20:48
[2016-04-12] MEDS: HYDROmorphONE 2 MG/ML SYG IV PRN ×6 (00:45→15:54)
[2016-04-12] MEDS: D5-LR + KCL 20 MEQ 1,000 ML IV SCH ×6 (00:46→19:50)
[2016-04-12 06:37] LABS: ADD SCAN DIFF NO
[2016-04-12] MEDS: PANTOPRAZOLE 40 MG INJ IV SCH (06:44)
[2016-04-12 06:52] LABS: POTASSIUM 3.6 mmol/L (3.5-5.1)
[2016-04-12 06:55] LABS: CALCIUM 7.9 mg/dl (8.4-10.2); CREATININE 0.63 mg/dl (0.44-1.00)
[2016-04-12 06:57] LABS: BASOPHILS % 0.2 % (0.0-2.0); EOSINOPHILS # 0.1 10^3/ul (0.0-0.5); EOSINOPHILS % 1.5 % (0.0-7.0); HEMATOCRIT 33.9 % (37.0-47.0); HEMOGLOBIN 10.9 g/dl (12.0-16.0); LYMPHOCYTES # 0.7 10^3/ul (0.8-2.9); LYMPHOCYTES % 11.5 % (15.0-51.0); MEAN CORPUSCULAR HEMOGLOBIN 30.9 pg (29.0-33.0); MEAN CORPUSCULAR HGB CONC 32.2 g/dl (32.0-37.0); MEAN PLATELET VOLUME 10.1 fl (7.4-10.4); MONOCYTE # 0.6 10^3/ul (0.3-0.9); MONOCYTES % 9.6 % (0.0-11.0); NEUTROPHIL # 4.5 10^3/ul (1.6-7.5); NEUTROPHILS % 76.7 % (39.0-77.0); PLATELET COUNT 127 10^3/UL (140-415); RED BLOOD COUNT 3.53 10^6/ul (4.20-5.40); RED CELL DISTRIBUTION WIDTH 15.5 % (11.5-14.5); WHITE BLOOD COUNT 5.8 10^3/ul (4.8-10.8)
[2016-04-12 08:18] VITALS: BP 153/96; RESP 19
--- NOTE | 2016-04-12 12:30 | PN ---
Date/Time of Note Date/Time of Note DATE: 04/12/16 TIME: 12:29 Assessment/Plan VTE Prophylaxis VTE Prophylaxis Intervention: other Lines/Catheters IV Catheter Type (from Nrsg): Portacath Urinary Cath still in place: Yes Reason Cath still needed: skin wounds contaminated by urine Assessment/Plan Chief Complaint/Hosp Course - Progressive recurrent ovarian carcinoma. Status post chemotherapy. Dr. Foy is following in hematology/oncology consultation. Dr. Johnston is following from a surgery standpoint. S/p bowel resection 04/07. Continue follow -up per general surgery recommendations. Continue n.p.o. IV fluids. - Intractable abdominal pain and nausea secondary to #1, resolved. Continue Dilaudid p.r.n. for pain and Zofran p.r.n. for nausea. Continue Lovenox for deep venous thrombosis prophylaxis and Protonix for peptic ulcer disease prophylaxis. Problems: Subjective 24 Hr Interval Summary Free Text/Dictation Patient complains of pain Exam/Review of Systems Vital Signs Vitals Vital Signs Date Time Temp Pulse Resp B/P Pulse Ox O2 Delivery O2 Flow Rate FiO2 04/12/16 08:18 98.2 86 19 153/96 95 04/11/16 13:23 Room Air 04/10/16 12:16 2.0 Intake and Output 04/11/16 04/11/16 04/12/16 15:00 23:00 07:00 Intake Total 2170 ml 1650 ml Output Total 700 ml 920 ml Balance 1470 ml 730 ml Exam Constitutional: well developed Head: atraumatic, normocephalic Neck: supple Respiratory: clear to auscultation Cardiovascular: regular rate and rhythm Gastrointestinal: non-tender, soft Extremities: normal pulses Results Result Diagram: 04/12/16 0454 04/12/16 0415 Results 24 hrs Laboratory Tests Test 04/12/16 04:15 04/12/16 04:54 Anion Gap 11 Blood Urea Nitrogen 10 Calcium Level 7.9 L Carbon Dioxide Level 28 Chloride Level 107 Creatinine 0.63 Glucose Level 117 Potassium Level 3.6 Sodium Level 142 Basophils # 0.0 Basophils % 0.2 Eosinophils # 0.1 Eosinophils % 1.5 Hematocrit 33.9 L Hemoglobin 10.9 L Lymphocytes # 0.7 L Lymphocytes % 11.5 L Mean Corpuscular Hemoglobin 30.9 Mean Corpuscular Hemoglobin Concent 32.2 Mean Corpuscular Volume 96.0 Mean Platelet Volume 10.1 Monocytes # 0.6 Monocytes % 9.6 Neutrophils # 4.5 Neutrophils % 76.7 Nucleated Red Blood Cells # 0.0 Nucleated Red Blood Cells % 0.0 Platelet Count 127 L Red Blood Count 3.53 L Red Cell Distribution Width 15.5 H White Blood Count 5.8 Medications Medications Current Medications Acetaminophen/ Hydrocodone Bitart ([place] (5/325)) 1 tab Q6H PRN PO MODERATE PAIN LEVEL 4-6 Last administered on 04/06/16 18:13; Admin Dose 1 TAB; Start at 18:00 Zolpidem Tartrate (Ambien) 5 mg HS PRN PO INSOMNIA Last administered on 23:48; Admin Dose 5 MG; Start 04/01/16 at 22:00 Diphenhydramine HCl (Benadryl) 25 mg Q6H PRN PO ITCHING Last administered on 06:49; Admin Dose 25 MG; Start 04/02/16 at 07:00 Al Hydrox/Mg Hydrox/Simethicone (Mag-Al Plus) 30 ml Q6H PRN PO GASTROINTESTINAL UPSET Last administered on 04/06/16 19:40; Admin Dose 30 ML; Start 04/02/16 at 17:30 Simethicone (Mylicon) 80 mg Q6 PO Last administered on 04/09/16 17:29; Admin Dose 80 MG; Start 04/02/16 at 18:00 Clonidine HCl 1 patch 1 patch Q7D TRANSDERM Last administered on 04/11/16 13:23 ; Admin Dose 1 PATCH; Start 04/04/16 at 13:15 Potassium Cl/ Dextrose/Lact Ringer's (D5-Lr + KCl 20 Meq) 1,000 ml @ 150 mls/ hr Q6H40M IV Last administered on 04/12/16 00:46; Admin Dose 150 MLS/HR; Start 04/07/16 at 23:30 Ondansetron HCl 4 mg 4 mg Q6H PRN IV NAUSEA AND/OR VOMITING Last administered on 04/09/16 06:43; Admin Dose 4 MG; Start 04/07/16 at 22:30 Albumin Human (Alburx) 500 ml @ 250 mls/hr ONCE PRN IVPB U/O BELOW 30 ML/HR X 2 HR; Start 04/07/16 at 22:30 Pantoprazole (Protonix Iv) 40 mg DAILY@06 IV Last administered on 04/12/16 06: 44; Admin Dose 40 MG; Start 04/08/16 at 06:00 Hydromorphone HCl (Dilaudid) 2 mg Q3 PRN IV PAIN Last administered on 04/12/16 09:51; Admin Dose 2 MG; Start 04/08/16 at 15:00 MELISSA RUGGIERO Apr 12, 2016 12:30
--- NOTE | 2016-04-12 17:47 | PN ---
Date/Time of Note Date/Time of Note DATE: 04/12/16 TIME: 17:45 Assessment/Plan VTE Prophylaxis VTE Prophylaxis Intervention: SCD's Lines/Catheters IV Catheter Type (from Nrs): Portacath Urinary Cath still in place: Yes Assessment/Plan Chief Complaint/Hosp Course Ovarian cancer with recurrence would benefit from secondary CRS even though persistent disease because the problem is her chemo was delayed 3 months postop. Informed of need to start chemo nathan postop and will call [facility] Problems: Subjective 24 Hr Interval Summary Free Text/Dictation S- Feels better but ongoing pain, no flatus yet. Not OOB O- Resp- clear CVS- NSR Abd- appropriate tenderness and incision clean Ext- NT mild edema A/P- doing reasonable. OOB more but await bowel fct. and [employer] Exam/Review of Systems Vital Signs Vitals Vital Signs Date Time Temp Pulse Resp B/P Pulse Ox O2 Delivery O2 Flow Rate FiO2 04/12/16 08:18 98.2 86 19 153/96 95 04/11/16 13:23 Room Air 04/10/16 12:16 2.0 Intake and Output 04/11/16 04/11/16 04/12/16 15:00 23:00 07:00 Intake Total 2170 ml 1650 ml Output Total 700 ml 920 ml Balance 1470 ml 730 ml Results Result Diagram: 04/12/16 0454 04/12/16 0415 Results 24 hrs Laboratory Tests Test 04/12/16 04:15 04/12/16 04:54 Anion Gap 11 Blood Urea Nitrogen 10 Calcium Level 7.9 L Carbon Dioxide Level 28 Chloride Level 107 Creatinine 0.63 Glucose Level 117 Potassium Level 3.6 Sodium Level 142 Basophils # 0.0 Basophils % 0.2 Eosinophils # 0.1 Eosinophils % 1.5 Hematocrit 33.9 L Hemoglobin 10.9 L Lymphocytes # 0.7 L Lymphocytes % 11.5 L Mean Corpuscular Hemoglobin 30.9 Mean Corpuscular Hemoglobin Concent 32.2 Mean Corpuscular Volume 96.0 Mean Platelet Volume 10.1 Monocytes # 0.6 Monocytes % 9.6 Neutrophils # 4.5 Neutrophils % 76.7 Nucleated Red Blood Cells # 0.0 Nucleated Red Blood Cells % 0.0 Platelet Count 127 L Red Blood Count 3.53 L Red Cell Distribution Width 15.5 H White Blood Count 5.8 Medications Medications Current Medications Acetaminophen/ Hydrocodone Bitart ([place] (5/325)) 1 tab Q6H PRN PO MODERATE PAIN LEVEL 4-6 Last administered on 04/06/16 18:13; Admin Dose 1 TAB; Start at 18:00 Zolpidem Tartrate (Ambien) 5 mg HS PRN PO INSOMNIA Last administered on 23:48; Admin Dose 5 MG; Start 04/01/16 at 22:00 Diphenhydramine HCl (Benadryl) 25 mg Q6H PRN PO ITCHING Last administered on 06:49; Admin Dose 25 MG; Start 04/02/16 at 07:00 Al Hydrox/Mg Hydrox/Simethicone (Mag-Al Plus) 30 ml Q6H PRN PO GASTROINTESTINAL UPSET Last administered on 04/06/16 19:40; Admin Dose 30 ML; Start 04/02/16 at 17:30 Simethicone (Mylicon) 80 mg Q6 PO Last administered on 04/09/16 17:29; Admin Dose 80 MG; Start 04/02/16 at 18:00 Clonidine HCl 1 patch 1 patch Q7D TRANSDERM Last administered on 04/11/16 13:23 ; Admin Dose 1 PATCH; Start 04/04/16 at 13:15 Potassium Cl/ Dextrose/Lact Ringer's (D5-Lr + KCl 20 Meq) 1,000 ml @ 150 mls/ hr Q6H40M IV Last administered on 04/12/16 13:35; Admin Dose 150 MLS/HR; Start 04/07/16 at 23:30 Ondansetron HCl 4 mg 4 mg Q6H PRN IV NAUSEA AND/OR VOMITING Last administered on 04/09/16 06:43; Admin Dose 4 MG; Start 04/07/16 at 22:30 Albumin Human (Alburx) 500 ml @ 250 mls/hr ONCE PRN IVPB U/O BELOW 30 ML/HR X 2 HR; Start 04/07/16 at 22:30 Pantoprazole (Protonix Iv) 40 mg DAILY@06 IV Last administered on 04/12/16 06: 44; Admin Dose 40 MG; Start 04/08/16 at 06:00 Hydromorphone HCl (Dilaudid) 2 mg Q3 PRN IV PAIN Last administered on 04/12/16t 15:54; Admin Dose 2 MG; Start 04/08/16 at 15:00 ANDI WADDELL MD Apr 12, 2016 17:47
[2016-04-12] MEDS: HYDROmorphONE 0.2 MG/ML PCA IV SCH (18:09)
[2016-04-12 19:22] VITALS: BP 149/84; RESP 12
[2016-04-12 22:18] VITALS: RESP 16
[2016-04-13] MEDS: D5-LR + KCL 20 MEQ 1,000 ML IV SCH ×3 (02:42→18:08)
[2016-04-13 05:20] LABS: ADD SCAN DIFF NO
[2016-04-13] MEDS: PANTOPRAZOLE 40 MG INJ IV SCH (05:29)
[2016-04-13 05:36] LABS: BASOPHILS % 0.2 % (0.0-2.0); EOSINOPHILS # 0.1 10^3/ul (0.0-0.5); HEMATOCRIT 34.6 % (37.0-47.0); HEMOGLOBIN 11.1 g/dl (12.0-16.0); LYMPHOCYTES # 0.7 10^3/ul (0.8-2.9); LYMPHOCYTES % 10.8 % (15.0-51.0); MEAN CORPUSCULAR HEMOGLOBIN 30.8 pg (29.0-33.0); MEAN CORPUSCULAR HGB CONC 32.1 g/dl (32.0-37.0); MEAN CORPUSCULAR VOLUME 96.1 fl (82.0-101.0); MEAN PLATELET VOLUME 10.5 fl (7.4-10.4); MONOCYTE # 0.4 10^3/ul (0.3-0.9); NEUTROPHIL # 4.9 10^3/ul (1.6-7.5); NEUTROPHILS % 80.5 % (39.0-77.0); PLATELET COUNT 107 10^3/UL (140-415); RED CELL DISTRIBUTION WIDTH 15.3 % (11.5-14.5); WHITE BLOOD COUNT 6.1 10^3/ul (4.8-10.8)
[2016-04-13 05:56] LABS: CREATININE 0.61 mg/dl (0.44-1.00)
[2016-04-13] MEDS: HYDROmorphONE 0.2 MG/ML PCA IV SCH ×2 (06:17→14:34)
[2016-04-13 07:26] VITALS: BP 171/94; RESP 18
--- NOTE | 2016-04-13 11:15 | CONS ---
Date/Time of Note Date/Time of Note DATE: 04/13/16 TIME: 11:11 Assessment/Plan Assessment/Plan Chief Complaint/Hosp Course 61-year-old female with stage IIIB ovarian cancer s/p surgery by Dr. Johnston in May 2015 and 6 cycles of carbo/taxol with persistently elevated CA125 (now 39.6), recently admitted to outside hospital with CT concerning for persistent disease, now admitted with 1 month of left flank pain. Recent PET/ CT 03-26-16 showed progressive disease with large volume of peripherally FDG avid loculated abdominal and pelvic ascites with increased omental caking and peritoneal nodularity noted throughout the abdomen and pelvis consistent with progressive recurrent ovarian carcinoma. Pt is now s/p optimal CRS for recurrent disease on 04/08.. She was left with < 5mm of residual disease. - cont post op care per surgery - plan to start adjuvant chemotherapy in house 1 week post op or when cleared by [employer] onc. plan to given 1 dose of Gemcitabine/ Cisplatin - Continue pain control per primary team. 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 c/o LE edema. Also EMERITA drain was leaking Exam/Review of Systems Vital Signs Vitals Vital Signs Date Time Temp Pulse Resp B/P Pulse Ox O2 Delivery O2 Flow Rate FiO2 04/13/16 09:09 18 04/13/16 07:26 98.3 77 171/94 97 04/12/16 20:00 Nasal Cannula 2.0 Intake and Output 04/12/16 04/12/16 04/13/16 15:00 23:00 07:00 Intake Total 1800 ml 1450 ml Output Total 810 ml 820 ml Balance 990 ml 630 ml Exam Constitutional: alert, distress, frail, oriented Psych: anxiety, depression Head: normocephalic Eyes: nl conjunctiva ENMT: nl external ears & nose Neck: non-tender, supple Respiratory: clear to auscultation, normal air movement Cardiovascular: nl pulses, regular rate and rhythm Gastrointestinal: other (EMERITA drain in place), surgical scars Results Result Diagram: 04/13/1642404/13/16424 Results 24 hrs Laboratory Tests Test 04/13/16 04:25 Anion Gap 10 Basophils # 0.0 Basophils % 0.2 Blood Urea Nitrogen 8 Calcium Level 8.0 L Carbon Dioxide Level 28 Chloride Level 106 Creatinine 0.61 Eosinophils # 0.1 Eosinophils % 1.0 Glucose Level 129 Hematocrit 34.6 L Hemoglobin 11.1 L Lymphocytes # 0.7 L Lymphocytes % 10.8 L Mean Corpuscular Hemoglobin 30.8 Mean Corpuscular Hemoglobin Concent 32.1 Mean Corpuscular Volume 96.1 Mean Platelet Volume 10.5 H Monocytes # 0.4 Monocytes % 7.0 Neutrophils # 4.9 Neutrophils % 80.5 H Nucleated Red Blood Cells # 0.0 Nucleated Red Blood Cells % 0.0 Platelet Count 107 L Potassium Level 4.0 Red Blood Count 3.60 L Red Cell Distribution Width 15.3 H Sodium Level 140 White Blood Count 6.1 Medications Medications Current Medications Acetaminophen/ Hydrocodone Bitart ([place] (5/325)) 1 tab Q6H PRN PO MODERATE PAIN LEVEL 4-6 Last administered on 04/06/16 18:13; Admin Dose 1 TAB; Start at 18:00 Zolpidem Tartrate (Ambien) 5 mg HS PRN PO INSOMNIA Last administered on 23:48; Admin Dose 5 MG; Start 04/01/16 at 22:00 Diphenhydramine HCl (Benadryl) 25 mg Q6H PRN PO ITCHING Last administered on 06:49; Admin Dose 25 MG; Start 04/02/16 at 07:00 Al Hydrox/Mg Hydrox/Simethicone (Mag-Al Plus) 30 ml Q6H PRN PO GASTROINTESTINAL UPSET Last administered on 04/06/16 19:40; Admin Dose 30 ML; Start 04/02/16 at 17:30 Simethicone (Mylicon) 80 mg Q6 PO Last administered on 04/13/16 09:11; Admin Dose 80 MG; Start 04/02/16 at 18:00 Clonidine HCl 1 patch 1 patch Q7D TRANSDERM Last administered on 04/11/16 13:23 ; Admin Dose 1 PATCH; Start 04/04/16 at 13:15 Potassium Cl/ Dextrose/Lact Ringer's (D5-Lr + KCl 20 Meq) 1,000 ml @ 150 mls/ hr Q6H40M IV Last administered on 04/13/16 10:33; Admin Dose 150 MLS/HR; Start 04/07/16 at 23:30 Ondansetron HCl 4 mg 4 mg Q6H PRN IV NAUSEA AND/OR VOMITING Last administered on 04/09/16 06:43; Admin Dose 4 MG; Start 04/07/16 at 22:30 Albumin Human (Alburx) 500 ml @ 250 mls/hr ONCE PRN IVPB U/O BELOW 30 ML/HR X 2 HR; Start 04/07/16 at 22:30 Pantoprazole (Protonix Iv) 40 mg DAILY@06 IV Last administered on 04/13/16 05: 29; Admin Dose 40 MG; Start 04/08/16 at 06:00 Hydromorphone HCl (Dilaudid ORDNANCE TECHNICIAN) 0.3 MG DOSE 15 ... Q4PCA IV Last administered on 04/13/16 06:17; Admin Dose 6 MG; Start 04/12/16 at 18:00 DEMETRA COLUNGA M.D. Apr 13, 2016 11:15
--- NOTE | 2016-04-13 16:26 | PN ---
Date/Time of Note Date/Time of Note DATE: 04/13/16 TIME: 16:24 Assessment/Plan VTE Prophylaxis VTE Prophylaxis Intervention: SCD's Lines/Catheters IV Catheter Type (from Nrs): PORT A CATH Central line still needed: Yes Urinary Cath still in place: Yes Reason Cath still needed: urinary retention Assessment/Plan Chief Complaint/Hosp Course ASSESSMENT AND PLAN: - Progressive recurrent ovarian carcinoma. Status post chemotherapy. Dr. Foy is following in hematology/oncology consultation. Dr. Johnston is following from a surgery standpoint. S/p bowel resection 04/07. Continue follow -up per general surgery recommendations. Continue n.p.o. IV fluids. - Intractable abdominal pain and nausea secondary to #1, resolved. Continue Dilaudid p.r.n. for pain and Zofran p.r.n. for nausea. Continue Lovenox for deep venous thrombosis prophylaxis and Protonix for peptic ulcer disease prophylaxis. Further recommendations based on clinical course. Plan of care was discussed with Dr. Bravo. Problems: Subjective 24 Hr Interval Summary Free Text/Dictation Patient was oozing serosanguineous fluid from incision site, continue IV fluids , patient still n.p.o., pain is well controlled patient denies any nausea vomiting remains afebrile. Exam/Review of Systems Vital Signs Vitals Vital Signs Date Time Temp Pulse Resp B/P Pulse Ox O2 Delivery O2 Flow Rate FiO2 04/13/16 14:01 18 04/13/16 08:30 Nasal Cannula 2.0 04/13/16 07:26 98.3 77 171/94 97 Intake and Output 04/12/16 04/12/16 04/13/16 15:00 23:00 07:00 Intake Total 1800 ml 1450 ml Output Total 810 ml 820 ml Balance 990 ml 630 ml Exam PHYSICAL ASSESSMENT: GENERAL: Well-developed, well-nourished female currently is awake, alert. HEENT: Head is atraumatic, normocephalic. NGT to LWS. NECK: Supple, no cervical lymphadenopathy, no thyromegaly. CHEST: Lungs clear bilaterally. There is no rhonchi, wheezes, rales noted. CARDIOVASCULAR: Normal S1, S2. No murmurs, gallops, clicks, rubs noted. ABDOMEN: Round, soft, s/p surgery with midline incision, EMERITA. SKIN: There is no rash, petechiae noted. EXTREMITIES: No edema, clubbing, cyanosis. Pulses equal bilaterally 2+. Mild edema. SKIN: There is no rash or petechiae noted. NEUROLOGICAL: The patient is awake, alert and oriented x4. Results Result Diagram: 04/13/16 0425 04/13/16 0425 Results 24 hrs Laboratory Tests Test 04/13/16 04:25 Anion Gap 10 Basophils # 0.0 Basophils % 0.2 Blood Urea Nitrogen 8 Calcium Level 8.0 L Carbon Dioxide Level 28 Chloride Level 106 Creatinine 0.61 Eosinophils # 0.1 Eosinophils % 1.0 Glucose Level 129 Hematocrit 34.6 L Hemoglobin 11.1 L Lymphocytes # 0.7 L Lymphocytes % 10.8 L Mean Corpuscular Hemoglobin 30.8 Mean Corpuscular Hemoglobin Concent 32.1 Mean Corpuscular Volume 96.1 Mean Platelet Volume 10.5 H Monocytes # 0.4 Monocytes % 7.0 Neutrophils # 4.9 Neutrophils % 80.5 H Nucleated Red Blood Cells # 0.0 Nucleated Red Blood Cells % 0.0 Platelet Count 107 L Potassium Level 4.0 Red Blood Count 3.60 L Red Cell Distribution Width 15.3 H Sodium Level 140 White Blood Count 6.1 Medications Medications Current Medications Acetaminophen/ Hydrocodone Bitart ([place] (5/325)) 1 tab Q6H PRN PO MODERATE PAIN LEVEL 4-6 Last administered on 04/06/16 18:13; Admin Dose 1 TAB; Start at 18:00 Zolpidem Tartrate (Ambien) 5 mg HS PRN PO INSOMNIA Last administered on 23:48; Admin Dose 5 MG; Start 04/01/16 at 22:00 Diphenhydramine HCl (Benadryl) 25 mg Q6H PRN PO ITCHING Last administered on 06:49; Admin Dose 25 MG; Start 04/02/16 at 07:00 Al Hydrox/Mg Hydrox/Simethicone (Mag-Al Plus) 30 ml Q6H PRN PO GASTROINTESTINAL UPSET Last administered on 04/06/16 19:40; Admin Dose 30 ML; Start 04/02/16 at 17:30 Simethicone (Mylicon) 80 mg Q6 PO Last administered on 04/13/16 09:11; Admin Dose 80 MG; Start 04/02/16 at 18:00 Clonidine HCl 1 patch 1 patch Q7D TRANSDERM Last administered on 04/11/16 13:23 ; Admin Dose 1 PATCH; Start 04/04/16 at 13:15 Potassium Cl/ Dextrose/Lact Ringer's (D5-Lr + KCl 20 Meq) 1,000 ml @ 150 mls/ hr Q6H40M IV Last administered on 04/13/16 10:33; Admin Dose 150 MLS/HR; Start 04/07/16 at 23:30 Ondansetron HCl 4 mg 4 mg Q6H PRN IV NAUSEA AND/OR VOMITING Last administered on 04/09/16 06:43; Admin Dose 4 MG; Start 04/07/16 at 22:30 Albumin Human (Alburx) 500 ml @ 250 mls/hr ONCE PRN IVPB U/O BELOW 30 ML/HR X 2 HR; Start 04/07/16 at 22:30 Pantoprazole (Protonix Iv) 40 mg DAILY@06 IV Last administered on 04/13/16 05: 29; Admin Dose 40 MG; Start 04/08/16 at 06:00 Hydromorphone HCl (Dilaudid L D RN) 0.3 MG DOSE 15 ... Q4PCA IV Last administered on 04/13/16 14:34; Admin Dose 6 MG; Start 04/12/16 at 18:00 LARRY MEJIA Apr 13, 2016 16:26
[2016-04-13 19:16] VITALS: BP 162/94; RESP 16
[2016-04-13 20:30] VITALS: BP 147/89
--- NOTE | 2016-04-13 21:14 | PN ---
Date/Time of Note Date/Time of Note DATE: 04/13/16 TIME: 21:11 Assessment/Plan VTE Prophylaxis VTE Prophylaxis Intervention: SCD's Lines/Catheters IV Catheter Type (from Nrs): PORT A CATH Urinary Cath still in place: Yes Assessment/Plan Chief Complaint/Hosp Course Ovarian cancer with recurrence would benefit from secondary CRS even though persistent disease because the problem is her chemo was delayed 3 months postop. Informed of need to start chemo nathan postop and will call [facility] Problems: Assessment/Plan A/P- doing reasonable. OOB more but await bowel fct. and MANAGER BUILDING dose increased. Wound slightly opened and packed Subjective 24 Hr Interval Summary Free Text/Dictation S- Feels better but ongoing pain, no flatus yet. Minimally OOB and notes wound drainage O- Resp- clear CVS- NSR Abd- appropriate tenderness and incision clean but some clear fluid; packed Ext- NT mild edema A/P- doing reasonable. OOB more but await bowel fct. and MANAGER BUILDING dose increased. Wound slightly opened and packed Exam/Review of Systems Vital Signs Vitals Vital Signs Date Time Temp Pulse Resp B/P Pulse Ox O2 Delivery O2 Flow Rate FiO2 04/13/16 19:16 98.7 90 16 162/94 98 04/13/16 08:30 Nasal Cannula 2.0 Intake and Output 04/12/16 04/12/16 04/13/16 15:00 23:00 07:00 Intake Total 1800 ml 1450 ml Output Total 810 ml 820 ml Balance 990 ml 630 ml Results Result Diagram: 04/13/16 0425 04/13/16 0425 Results 24 hrs Laboratory Tests Test 04/13/16 04:25 Anion Gap 10 Basophils # 0.0 Basophils % 0.2 Blood Urea Nitrogen 8 Calcium Level 8.0 L Carbon Dioxide Level 28 Chloride Level 106 Creatinine 0.61 Eosinophils # 0.1 Eosinophils % 1.0 Glucose Level 129 Hematocrit 34.6 L Hemoglobin 11.1 L Lymphocytes # 0.7 L Lymphocytes % 10.8 L Mean Corpuscular Hemoglobin 30.8 Mean Corpuscular Hemoglobin Concent 32.1 Mean Corpuscular Volume 96.1 Mean Platelet Volume 10.5 H Monocytes # 0.4 Monocytes % 7.0 Neutrophils # 4.9 Neutrophils % 80.5 H Nucleated Red Blood Cells # 0.0 Nucleated Red Blood Cells % 0.0 Platelet Count 107 L Potassium Level 4.0 Red Blood Count 3.60 L Red Cell Distribution Width 15.3 H Sodium Level 140 White Blood Count 6.1 Medications Medications Current Medications Acetaminophen/ Hydrocodone Bitart ([place] (5/325)) 1 tab Q6H PRN PO MODERATE PAIN LEVEL 4-6 Last administered on 04/06/16 18:13; Admin Dose 1 TAB; Start at 18:00 Zolpidem Tartrate (Ambien) 5 mg HS PRN PO INSOMNIA Last administered on 23:48; Admin Dose 5 MG; Start 04/01/16 at 22:00 Diphenhydramine HCl (Benadryl) 25 mg Q6H PRN PO ITCHING Last administered on 06:49; Admin Dose 25 MG; Start 04/02/16 at 07:00 Al Hydrox/Mg Hydrox/Simethicone (Mag-Al Plus) 30 ml Q6H PRN PO GASTROINTESTINAL UPSET Last administered on 04/06/16 19:40; Admin Dose 30 ML; Start 04/02/16 at 17:30 Simethicone (Mylicon) 80 mg Q6 PO Last administered on 04/13/16 17:40; Admin Dose 80 MG; Start 04/02/16 at 18:00 Clonidine HCl 1 patch 1 patch Q7D TRANSDERM Last administered on 04/11/16 13:23 ; Admin Dose 1 PATCH; Start 04/04/16 at 13:15 Potassium Cl/ Dextrose/Lact Ringer's (D5-Lr + KCl 20 Meq) 1,000 ml @ 150 mls/ hr Q6H40M IV Last administered on 04/13/16 18:08; Admin Dose 150 MLS/HR; Start 04/07/16 at 23:30 Ondansetron HCl 4 mg 4 mg Q6H PRN IV NAUSEA AND/OR VOMITING Last administered on 04/09/16 06:43; Admin Dose 4 MG; Start 04/07/16 at 22:30 Albumin Human (Alburx) 500 ml @ 250 mls/hr ONCE PRN IVPB U/O BELOW 30 ML/HR X 2 HR; Start 04/07/16 at 22:30 Pantoprazole (Protonix Iv) 40 mg DAILY@06 IV Last administered on 04/13/16 05: 29; Admin Dose 40 MG; Start 04/08/16 at 06:00 Hydromorphone HCl (Dilaudid MANAGER BUILDING) 0.3 MG DOSE 15 ... Q4PCA IV Last administered on 04/13/16 14:34; Admin Dose 6 MG; Start 04/12/16 at 18:00 Hydralazine HCl (Apresoline) 10 mg Q4H PRN IV HTN; Start 04/13/16 at 20:00 ANDI WADDELL MD Apr 13, 2016 21:14
[2016-04-14] MEDS: D5-LR + KCL 20 MEQ 1,000 ML IV SCH ×4 (01:41→23:37)
[2016-04-14] MEDS: HYDROmorphONE 0.2 MG/ML PCA IV SCH ×2 (01:42→11:50)
[2016-04-14 04:54] LABS: ADD SCAN DIFF NO
[2016-04-14 05:08] LABS: ABNORMAL IP MESSAGE 1; BASOPHILS % 0.1 % (0.0-2.0); EOSINOPHILS # 0.1 10^3/ul (0.0-0.5); EOSINOPHILS % 0.9 % (0.0-7.0); HEMATOCRIT 35.8 % (37.0-47.0); HEMOGLOBIN 11.6 g/dl (12.0-16.0); LYMPHOCYTES # 0.6 10^3/ul (0.8-2.9); LYMPHOCYTES % 7.2 % (15.0-51.0); MEAN CORPUSCULAR HEMOGLOBIN 30.7 pg (29.0-33.0); MEAN CORPUSCULAR HGB CONC 32.4 g/dl (32.0-37.0); MEAN CORPUSCULAR VOLUME 94.7 fl (82.0-101.0); MEAN PLATELET VOLUME 10.3 fl (7.4-10.4); MONOCYTE # 0.4 10^3/ul (0.3-0.9); MONOCYTES % 4.3 % (0.0-11.0); NEUTROPHIL # 7.8 10^3/ul (1.6-7.5); NEUTROPHILS % 87.1 % (39.0-77.0); PLATELET COUNT 94 10^3/UL (140-415); RED BLOOD COUNT 3.78 10^6/ul (4.20-5.40); RED CELL DISTRIBUTION WIDTH 15.4 % (11.5-14.5); WHITE BLOOD COUNT 8.9 10^3/ul (4.8-10.8)
[2016-04-14 05:39] LABS: POTASSIUM 3.9 mmol/L (3.5-5.1)
[2016-04-14 05:41] LABS: CREATININE 0.59 mg/dl (0.44-1.00)
[2016-04-14 05:42] LABS: CALCIUM 8.2 mg/dl (8.4-10.2)
[2016-04-14] MEDS: PANTOPRAZOLE 40 MG INJ IV SCH (05:54)
[2016-04-14] MEDS: ONDANSETRON 4 MG INJ IV PRN (06:01)
[2016-04-14 08:00] VITALS: BP 137/84; RESP 17
[2016-04-14 08:10] VITALS: BP 144/84; RESP 18
--- NOTE | 2016-04-14 12:04 | CONS ---
Date/Time of Note Date/Time of Note DATE: 04/14/16 TIME: 11:59 Assessment/Plan Assessment/Plan Chief Complaint/Hosp Course 61-year-old female with stage IIIB ovarian cancer s/p surgery by Dr. Johnston in May 2015 and 6 cycles of carbo/taxol with persistently elevated CA125 (now 39.6), recently admitted to outside hospital with CT concerning for persistent disease, now admitted with 1 month of left flank pain. Recent PET/ CT 03-26-16 showed progressive disease with large volume of peripherally FDG avid loculated abdominal and pelvic ascites with increased omental caking and peritoneal nodularity noted throughout the abdomen and pelvis consistent with progressive recurrent ovarian carcinoma. Pt is now s/p optimal CRS for recurrent disease on 04/08. She was left with < 5mm of residual disease. - cont post op care per surgery - plan to start adjuvant chemotherapy in house 1 week post op or when cleared by [employer] onc. plan to given 1 dose of Gemcitabine/ Cisplatin. Pt still not ambulating nor is she tolerating po diet - Continue pain control per primary team. pt on FINANCIAL MANAGEMENT which was increased - patient responded well to blood transfusion ordered for drop in H/H Approximately 40 min were spent at patient's bedside and in coordination of her care Problems: Consultation Date/Type/Reason Admit Date/Time Apr 02, 2016 at 10:07 Initial Consult Date 04/02/16 Type of Consultation: Hematology/Oncology Reason for Consultation ovarian cancer Referring Provider: BRIAN ZAZUETA MD 24 HR Interval Summary Free Text/Dictation pt's Dilaudid core shaper was increased. pain under a little better control. pt has ostomy bad in place for leaking drainage. no nausea this morning Exam/Review of Systems Vital Signs Vitals Vital Signs Date Time Temp Pulse Resp B/P Pulse Ox O2 Delivery O2 Flow Rate FiO2 04/14/16 08:10 97.4 84 18 144/84 91 04/13/16 08:30 Nasal Cannula 2.0 Intake and Output 04/13/16 04/13/16 04/14/16 15:00 23:00 07:00 Intake Total 1650 ml 0 ml Output Total 1200 ml 1150 ml Balance 450 ml -1150 ml Exam Constitutional: alert, distress, frail Psych: depression Head: normocephalic Eyes: nl conjunctiva ENMT: nl external ears & nose, other (NGT in place) Neck: non-tender, supple Respiratory: clear to auscultation, normal air movement Cardiovascular: regular rate and rhythm Gastrointestinal: other (EMERITA drain in place), soft Musculoskeletal: nl extremities to inspection Results Result Diagram: 04/14/1642904/14/16 043 Results 24 hrs Laboratory Tests Test 04/14/16 04:30 Anion Gap 11 Basophils # 0.0 Basophils % 0.1 Blood Urea Nitrogen 8 Calcium Level 8.2 L Carbon Dioxide Level 29 Chloride Level 104 Creatinine 0.59 Eosinophils # 0.1 Eosinophils % 0.9 Glucose Level 128 Hematocrit 35.8 L Hemoglobin 11.6 L Lymphocytes # 0.6 L Lymphocytes % 7.2 L Mean Corpuscular Hemoglobin 30.7 Mean Corpuscular Hemoglobin Concent 32.4 Mean Corpuscular Volume 94.7 Mean Platelet Volume 10.3 Monocytes # 0.4 Monocytes % 4.3 Neutrophils # 7.8 H Neutrophils % 87.1 H Nucleated Red Blood Cells # 0.0 Nucleated Red Blood Cells % 0.0 Platelet Count 94 L Potassium Level 3.9 Red Blood Count 3.78 L Red Cell Distribution Width 15.4 H Sodium Level 140 White Blood Count 8.9 # Medications Medications Current Medications Acetaminophen/ Hydrocodone Bitart ([place] (5/325)) 1 tab Q6H PRN PO MODERATE PAIN LEVEL 4-6 Last administered on 04/06/16 18:13; Admin Dose 1 TAB; Start at 18:00 Zolpidem Tartrate (Ambien) 5 mg HS PRN PO INSOMNIA Last administered on 23:48; Admin Dose 5 MG; Start 04/01/16 at 22:00 Diphenhydramine HCl (Benadryl) 25 mg Q6H PRN PO ITCHING Last administered on 06:49; Admin Dose 25 MG; Start 04/02/16 at 07:00 Al Hydrox/Mg Hydrox/Simethicone (Mag-Al Plus) 30 ml Q6H PRN PO GASTROINTESTINAL UPSET Last administered on 04/06/16 19:40; Admin Dose 30 ML; Start 04/02/16 at 17:30 Simethicone (Mylicon) 80 mg Q6 PO Last administered on 04/14/16 05:54; Admin Dose 80 MG; Start 04/02/16 at 18:00 Clonidine HCl 1 patch 1 patch Q7D TRANSDERM Last administered on 04/11/16 13:23 ; Admin Dose 1 PATCH; Start 04/04/16 at 13:15 Potassium Cl/ Dextrose/Lact Ringer's (D5-Lr + KCl 20 Meq) 1,000 ml @ 150 mls/ hr Q6H40M IV Last administered on 04/14/16 10:06; Admin Dose 150 MLS/HR; Start 04/07/16 at 23:30 Ondansetron HCl 4 mg 4 mg Q6H PRN IV NAUSEA AND/OR VOMITING Last administered on 04/14/16 06:01; Admin Dose 4 MG; Start 04/07/16 at 22:30 Albumin Human (Alburx) 500 ml @ 250 mls/hr ONCE PRN IVPB U/O BELOW 30 ML/HR X 2 HR; Start 04/07/16 at 22:30 Pantoprazole (Protonix Iv) 40 mg DAILY@06 IV Last administered on 04/14/16 05: 54; Admin Dose 40 MG; Start 04/08/16 at 06:00 Hydromorphone HCl (Dilaudid FINANCIAL MANAGEMENT) 0.3 MG DOSE 15 ... Q4PCA IV Last administered on 04/14/16 11:50; Admin Dose 6 MG; Start 04/12/16 at 18:00 Hydralazine HCl (Apresoline) 10 mg Q4H PRN IV HTN; Start 04/13/16 at 20:00 DEMETRA COLUNGA M.D. Apr 14, 2016 12:04
--- NOTE | 2016-04-14 12:58 | PN ---
Date/Time of Note Date/Time of Note DATE: 04/14/16 TIME: 12:55 Assessment/Plan VTE Prophylaxis VTE Prophylaxis Intervention: SCD's Lines/Catheters IV Catheter Type (from [place]): PAC Urinary Cath still in place: Yes Assessment/Plan Chief Complaint/Hosp Course Ovarian cancer with recurrence would benefit from secondary CRS even though persistent disease because the problem is her chemo was delayed 3 months postop. Informed of need to start chemo nathan postop and will call [facility] Problems: Assessment/Plan A/P- doing reasonable. OOB more but await bowel fct. and TRANSCRIPTER dose increased. Check doppler r/o DVT Subjective 24 Hr Interval Summary Free Text/Dictation S- Feels better less pain, no flatus yet. OOBmore and less wound drainage O- Resp- clear CVS- NSR Abd- appropriate tenderness and incision clean ; packed Ext- NT increased edema A/P- doing reasonable. OOB more but await bowel fct. and TRANSCRIPTER dose increased. Check doppler r/o DVT Exam/Review of Systems Vital Signs Vitals Vital Signs Date Time Temp Pulse Resp B/P Pulse Ox O2 Delivery O2 Flow Rate FiO2 04/14/16 08:10 97.4 84 18 144/84 91 04/13/16 08:30 Nasal Cannula 2.0 Intake and Output 04/13/16 04/13/16 04/14/16 15:00 23:00 07:00 Intake Total 1650 ml 0 ml Output Total 1200 ml 1150 ml Balance 450 ml -1150 ml Results Result Diagram: 04/14/16 0430 04/14/16 0430 Results 24 hrs Laboratory Tests Test 04/14/16 04:30 Anion Gap 11 Basophils # 0.0 Basophils % 0.1 Blood Urea Nitrogen 8 Calcium Level 8.2 L Carbon Dioxide Level 29 Chloride Level 104 Creatinine 0.59 Eosinophils # 0.1 Eosinophils % 0.9 Glucose Level 128 Hematocrit 35.8 L Hemoglobin 11.6 L Lymphocytes # 0.6 L Lymphocytes % 7.2 L Mean Corpuscular Hemoglobin 30.7 Mean Corpuscular Hemoglobin Concent 32.4 Mean Corpuscular Volume 94.7 Mean Platelet Volume 10.3 Monocytes # 0.4 Monocytes % 4.3 Neutrophils # 7.8 H Neutrophils % 87.1 H Nucleated Red Blood Cells # 0.0 Nucleated Red Blood Cells % 0.0 Platelet Count 94 L Potassium Level 3.9 Red Blood Count 3.78 L Red Cell Distribution Width 15.4 H Sodium Level 140 White Blood Count 8.9 # Medications Medications Current Medications Acetaminophen/ Hydrocodone Bitart ([place] (5/325)) 1 tab Q6H PRN PO MODERATE PAIN LEVEL 4-6 Last administered on 04/06/16 18:13; Admin Dose 1 TAB; Start at 18:00 Zolpidem Tartrate (Ambien) 5 mg HS PRN PO INSOMNIA Last administered on 23:48; Admin Dose 5 MG; Start 04/01/16 at 22:00 Diphenhydramine HCl (Benadryl) 25 mg Q6H PRN PO ITCHING Last administered on 06:49; Admin Dose 25 MG; Start 04/02/16 at 07:00 Al Hydrox/Mg Hydrox/Simethicone (Mag-Al Plus) 30 ml Q6H PRN PO GASTROINTESTINAL UPSET Last administered on 04/06/16 19:40; Admin Dose 30 ML; Start 04/02/16 at 17:30 Simethicone (Mylicon) 80 mg Q6 PO Last administered on 04/14/16 05:54; Admin Dose 80 MG; Start 04/02/16 at 18:00 Clonidine HCl 1 patch 1 patch Q7D TRANSDERM Last administered on 04/11/16 13:23 ; Admin Dose 1 PATCH; Start 04/04/16 at 13:15 Potassium Cl/ Dextrose/Lact Ringer's (D5-Lr + KCl 20 Meq) 1,000 ml @ 150 mls/ hr Q6H40M IV Last administered on 04/14/16 10:06; Admin Dose 150 MLS/HR; Start 04/07/16 at 23:30 Ondansetron HCl 4 mg 4 mg Q6H PRN IV NAUSEA AND/OR VOMITING Last administered on 04/14/16 06:01; Admin Dose 4 MG; Start 04/07/16 at 22:30 Albumin Human (Alburx) 500 ml @ 250 mls/hr ONCE PRN IVPB U/O BELOW 30 ML/HR X 2 HR; Start 04/07/16 at 22:30 Pantoprazole (Protonix Iv) 40 mg DAILY@06 IV Last administered on 04/14/16 05: 54; Admin Dose 40 MG; Start 04/08/16 at 06:00 Hydromorphone HCl (Dilaudid TRANSCRIPTER) 0.3 MG DOSE 15 ... Q4PCA IV Last administered on 04/14/16 11:50; Admin Dose 6 MG; Start 04/12/16 at 18:00 Hydralazine HCl (Apresoline) 10 mg Q4H PRN IV HTN; Start 04/13/16 at 20:00 ANDI WADDELL MD Apr 14, 2016 12:58
[2016-04-14] MEDS: HYDROCODONE/APAP (5/325) TAB PO PRN (14:49)
--- NOTE | 2016-04-14 15:34 | RADRPT ---
PROCEDURE: US Lower extremity Venous. CLINICAL INDICATION: Bilateral lower extremity swelling TECHNIQUE: Multiple sonographic images of the bilateral lower extremity deep venous system was obt ained utilizing grayscale, color-flow, compressive sonography and doppler imaging with augmentation. The images were reviewed on a PACS workstation. COMPARISON: 04/09/16 FINDINGS: There is normal compressibility and flow within the bilateral common femoral, proximal and mid super ficial femoral , posterior tibial and popliteal veins. The distal superficial femoral veins could not be visualized. RPTAT: AA IMPRESSION: No sonographic evidence for deep venous thrombosis. Distal bilateral superficial femoral veins could not be visualized. .Hermann Velazquez MD, MD Date Time Electronically viewed and signed by .Hermann Velazquez MD, on 04/14/2016 15:33 .S/
[2016-04-14] MEDS ORDERED: FUROSEMIDE 20 MG INJ IV ONE (18:30)
--- NOTE | 2016-04-14 18:37 | PN ---
Date/Time of Note Date/Time of Note DATE: 04/14/16 TIME: 18:35 Assessment/Plan VTE Prophylaxis VTE Prophylaxis Intervention: SCD's Lines/Catheters IV Catheter Type (from Nrsg): Central Line Central line still needed: Yes Urinary Cath still in place: Yes Reason Cath still needed: urinary retention Assessment/Plan Chief Complaint/Hosp Course ASSESSMENT AND PLAN: - Progressive recurrent ovarian carcinoma. Status post chemotherapy. Dr. Foy is following in hematology/oncology consultation. Dr. Johnston is following from a surgery standpoint. S/p bowel resection 04/07. Continue follow -up per general surgery recommendations. Patient is n.p.o. we will start TPN. - Intractable abdominal pain and nausea secondary to #1, resolved. Continue Dilaudid p.r.n. for pain and Zofran p.r.n. for nausea. -Bilateral lower extremities edema, ultrasound is negative for DVT, will give Lasix 1. Continue Lovenox for deep venous thrombosis prophylaxis and Protonix for peptic ulcer disease prophylaxis. Further recommendations based on clinical course. Plan of care was discussed with Dr. Bravo. Problems: Subjective 24 Hr Interval Summary Free Text/Dictation Patient is currently on QUALITY CLOTH TESTER morphine for pain control, denies any nausea vomiting, good urine output via [place]. Exam/Review of Systems Vital Signs Vitals Vital Signs Date Time Temp Pulse Resp B/P Pulse Ox O2 Delivery O2 Flow Rate FiO2 04/14/16 08:10 97.4 84 18 144/84 91 04/13/16 08:30 Nasal Cannula 2.0 Intake and Output 04/13/16 04/13/16 04/14/16 15:00 23:00 07:00 Intake Total 1650 ml 0 ml Output Total 1200 ml 1150 ml Balance 450 ml -1150 ml Exam PHYSICAL ASSESSMENT: GENERAL: Well-developed, well-nourished female currently is awake, alert. HEENT: Head is atraumatic, normocephalic. NGT to LWS. NECK: Supple, no cervical lymphadenopathy, no thyromegaly. CHEST: Lungs clear bilaterally. There is no rhonchi, wheezes, rales noted. CARDIOVASCULAR: Normal S1, S2. No murmurs, gallops, clicks, rubs noted. ABDOMEN: Round, soft, s/p surgery with midline incision, EMERITA. SKIN: There is no rash, petechiae noted. EXTREMITIES: No edema, clubbing, cyanosis. Pulses equal bilaterally 2+. Mild edema. SKIN: There is no rash or petechiae noted. NEUROLOGICAL: The patient is awake, alert and oriented x4. Results Result Diagram: 04/14/16 0430 04/14/16 0430 Results 24 hrs Laboratory Tests Test 04/14/16 04:30 Anion Gap 11 Basophils # 0.0 Basophils % 0.1 Blood Urea Nitrogen 8 Calcium Level 8.2 L Carbon Dioxide Level 29 Chloride Level 104 Creatinine 0.59 Eosinophils # 0.1 Eosinophils % 0.9 Glucose Level 128 Hematocrit 35.8 L Hemoglobin 11.6 L Lymphocytes # 0.6 L Lymphocytes % 7.2 L Mean Corpuscular Hemoglobin 30.7 Mean Corpuscular Hemoglobin Concent 32.4 Mean Corpuscular Volume 94.7 Mean Platelet Volume 10.3 Monocytes # 0.4 Monocytes % 4.3 Neutrophils # 7.8 H Neutrophils % 87.1 H Nucleated Red Blood Cells # 0.0 Nucleated Red Blood Cells % 0.0 Platelet Count 94 L Potassium Level 3.9 Red Blood Count 3.78 L Red Cell Distribution Width 15.4 H Sodium Level 140 White Blood Count 8.9 # Medications Medications Current Medications Acetaminophen/ Hydrocodone Bitart ([place] (5/325)) 1 tab Q6H PRN PO MODERATE PAIN LEVEL 4-6 Last administered on 04/14/16 14:49; Admin Dose 1 TAB; Start at 18:00 Zolpidem Tartrate (Ambien) 5 mg HS PRN PO INSOMNIA Last administered on 23:48; Admin Dose 5 MG; Start 04/01/16 at 22:00 Diphenhydramine HCl (Benadryl) 25 mg Q6H PRN PO ITCHING Last administered on 06:49; Admin Dose 25 MG; Start 04/02/16 at 07:00 Al Hydrox/Mg Hydrox/Simethicone (Mag-Al Plus) 30 ml Q6H PRN PO GASTROINTESTINAL UPSET Last administered on 04/06/16 19:40; Admin Dose 30 ML; Start 04/02/16 at 17:30 Simethicone (Mylicon) 80 mg Q6 PO Last administered on 04/14/16 14:54; Admin Dose 80 MG; Start 04/02/16 at 18:00 Clonidine HCl 1 patch 1 patch Q7D TRANSDERM Last administered on 04/11/16 13:23 ; Admin Dose 1 PATCH; Start 04/04/16 at 13:15 Potassium Cl/ Dextrose/Lact Ringer's (D5-Lr + KCl 20 Meq) 1,000 ml @ 150 mls/ hr Q6H40M IV Last administered on 04/14/16 16:58; Admin Dose 150 MLS/HR; Start 04/07/16 at 23:30 Ondansetron HCl 4 mg 4 mg Q6H PRN IV NAUSEA AND/OR VOMITING Last administered on 04/14/16 06:01; Admin Dose 4 MG; Start 04/07/16 at 22:30 Albumin Human (Alburx) 500 ml @ 250 mls/hr ONCE PRN IVPB U/O BELOW 30 ML/HR X 2 HR; Start 04/07/16 at 22:30 Pantoprazole (Protonix Iv) 40 mg DAILY@06 IV Last administered on 04/14/16 05: 54; Admin Dose 40 MG; Start 04/08/16 at 06:00 Hydromorphone HCl (Dilaudid QUALITY CLOTH TESTER) 0.3 MG DOSE 15 ... Q4PCA IV Last administered on 04/14/16 11:50; Admin Dose 6 MG; Start 04/12/16 at 18:00 Hydralazine HCl (Apresoline) 10 mg Q4H PRN IV HTN; Start 04/13/16 at 20:00 LARRY MEJIA Apr 14, 2016 18:37
[2016-04-14 19:54] VITALS: BP 118/78; RESP 20
[2016-04-15] MEDS: ONDANSETRON 4 MG INJ IV PRN ×2 (00:47→08:11)
[2016-04-15] MEDS: D5-LR + KCL 20 MEQ 1,000 ML IV SCH ×2 (05:31→12:43)
[2016-04-15] MEDS: PANTOPRAZOLE 40 MG INJ IV SCH (05:31)
[2016-04-15 05:43] LABS: ADD SCAN DIFF NO
[2016-04-15 05:55] LABS: ABNORMAL IP MESSAGE 1; EOSINOPHILS # 0.1 10^3/ul (0.0-0.5); EOSINOPHILS % 0.8 % (0.0-7.0); HEMATOCRIT 27.3 % (37.0-47.0); LYMPHOCYTES # 0.6 10^3/ul (0.8-2.9); LYMPHOCYTES % 6.9 % (15.0-51.0); MEAN CORPUSCULAR HEMOGLOBIN 30.9 pg (29.0-33.0); MEAN CORPUSCULAR VOLUME 93.8 fl (82.0-101.0); MEAN PLATELET VOLUME 11.1 fl (7.4-10.4); MONOCYTE # 0.3 10^3/ul (0.3-0.9); MONOCYTES % 3.8 % (0.0-11.0); NEUTROPHIL # 7.9 10^3/ul (1.6-7.5); NEUTROPHILS % 87.9 % (39.0-77.0); PLATELET COUNT 70 10^3/UL (140-415); RED BLOOD COUNT 2.91 10^6/ul (4.20-5.40); RED CELL DISTRIBUTION WIDTH 15.4 % (11.5-14.5)
[2016-04-15] MEDS: HYDROmorphONE 0.2 MG/ML PCA IV SCH (06:01)
[2016-04-15 06:19] LABS: CREATININE 0.48 mg/dl (0.44-1.00)
[2016-04-15 06:20] LABS: CALCIUM 6.9 mg/dl (8.4-10.2)
[2016-04-15 07:29] VITALS: BP 137/73; RESP 19
--- NOTE | 2016-04-15 11:50 | CONS ---
Date/Time of Note Date/Time of Note DATE: 04/15/16 TIME: 11:46 Assessment/Plan Assessment/Plan Chief Complaint/Hosp Course 61-year-old female with stage IIIB ovarian cancer s/p surgery by Dr. Johnston in May 2015 and 6 cycles of carbo/taxol with persistently elevated CA125 (now 39.6), recently admitted to outside hospital with CT concerning for persistent disease, now admitted with 1 month of left flank pain. Recent PET/ CT 03-26-16 showed progressive disease with large volume of peripherally FDG avid loculated abdominal and pelvic ascites with increased omental caking and peritoneal nodularity noted throughout the abdomen and pelvis consistent with progressive recurrent ovarian carcinoma. Pt is now s/p optimal CRS for recurrent disease on 04/08. She was left with < 5mm of residual disease. - LE Doppler do not reveal evidence of DVT - cont post op care per surgery. pt is ambulating. TPN to start today - increased dose of Zofran to 8mg IV q 6 prn nausea - plan to start adjuvant chemotherapy in house 1 week post op or when cleared by [employer] onc. plan to given 1 dose of Gemcitabine/ Cisplatin. PT is still not tolerating a po diet - patient responded well to blood transfusion ordered for drop in H/H Approximately 40 min were spent at patient's bedside and in coordination of her care Problems: Consultation Date/Type/Reason Admit Date/Time Apr 02, 2016 at 10:07 Initial Consult Date 04/02/16 Type of Consultation: Hematology/Oncology Reason for Consultation ovarian cancer Referring Provider: BRIAN ZAZUETA MD 24 HR Interval Summary Free Text/Dictation still with nausea. Dilaudid demand dose was increased last night. Pt is ambulating Exam/Review of Systems Vital Signs Vitals Vital Signs Date Time Temp Pulse Resp B/P Pulse Ox O2 Delivery O2 Flow Rate FiO2 04/15/16 08:00 18 04/15/16 07:29 98.7 74 137/73 98 04/13/16 08:30 Nasal Cannula 2.0 Intake and Output 04/14/16 04/14/16 04/15/16 15:00 23:00 07:00 Intake Total 1800 ml 1650 ml 1000 ml Output Total 1130 ml 2460 ml Balance 1800 ml 520 ml -1460 ml Exam Constitutional: alert, distress, frail, oriented Psych: depression Head: atraumatic, normocephalic Eyes: nl conjunctiva ENMT: nl external ears & nose Neck: non-tender, supple Respiratory: clear to auscultation, normal air movement Cardiovascular: nl pulses, regular rate and rhythm Gastrointestinal: other (EMERITA drain in place ), tender Musculoskeletal: nl extremities to inspection, nl gait and stance Extremities: edema Results Result Diagram: 04/15/165 04/15/16 0445 Results 24 hrs Laboratory Tests Test 04/15/16 04:45 Anion Gap 11 Basophils # 0.0 Basophils % 0.0 Blood Urea Nitrogen 8 Calcium Level 6.9 L Carbon Dioxide Level 25 Chloride Level 106 Creatinine 0.48 Eosinophils # 0.1 Eosinophils % 0.8 Glucose Level 391 #H Hematocrit 27.3 #L Hemoglobin 9.0 #L Lymphocytes # 0.6 L Lymphocytes % 6.9 L Mean Corpuscular Hemoglobin 30.9 Mean Corpuscular Hemoglobin Concent 33.0 Mean Corpuscular Volume 93.8 Mean Platelet Volume 11.1 H Monocytes # 0.3 Monocytes % 3.8 Neutrophils # 7.9 H Neutrophils % 87.9 H Nucleated Red Blood Cells # 0.0 Nucleated Red Blood Cells % 0.0 Platelet Count 70 #L Potassium Level 5.0 Red Blood Count 2.91 #L Red Cell Distribution Width 15.4 H Sodium Level 137 White Blood Count 9.0 Medications Medications Current Medications Acetaminophen/ Hydrocodone Bitart ([place] (5/325)) 1 tab Q6H PRN PO MODERATE PAIN LEVEL 4-6 Last administered on 04/14/16 14:49; Admin Dose 1 TAB; Start at 18:00 Zolpidem Tartrate (Ambien) 5 mg HS PRN PO INSOMNIA Last administered on 23:48; Admin Dose 5 MG; Start 04/01/16 at 22:00 Diphenhydramine HCl (Benadryl) 25 mg Q6H PRN PO ITCHING Last administered on 06:49; Admin Dose 25 MG; Start 04/02/16 at 07:00 Al Hydrox/Mg Hydrox/Simethicone (Mag-Al Plus) 30 ml Q6H PRN PO GASTROINTESTINAL UPSET Last administered on 04/06/16 19:40; Admin Dose 30 ML; Start 2/23/17 at 17:30 Simethicone (Mylicon) 80 mg Q6 PO Last administered on 04/15/16 05:31; Admin Dose 80 MG; Start 04/02/16 at 18:00 Clonidine HCl 1 patch 1 patch Q7D TRANSDERM Last administered on 04/11/16 13:23 ; Admin Dose 1 PATCH; Start 04/04/16 at 13:15 Potassium Cl/ Dextrose/Lact Ringer's (D5-Lr + KCl 20 Meq) 1,000 ml @ 70 mls/hr [id number] IV Last administered on 04/15/16 05:31; Admin Dose 150 MLS/HR; Start at 23:30 Ondansetron HCl 4 mg 4 mg Q6H PRN IV NAUSEA AND/OR VOMITING Last administered on 04/15/16 08:11; Admin Dose 4 MG; Start 04/07/16 at 22:30 Albumin Human (Alburx) 500 ml @ 250 mls/hr ONCE PRN IVPB U/O BELOW 30 ML/HR X 2 HR; Start 04/07/16 at 22:30 Pantoprazole (Protonix Iv) 40 mg DAILY@06 IV Last administered on 04/15/16 05: 31; Admin Dose 40 MG; Start 04/08/16 at 06:00 Hydromorphone HCl (Dilaudid GARAGE ATTENDANT) 0.3 MG DOSE 15 ... Q4PCA IV Last administered on 04/15/16 06:01; Admin Dose 6 MG; Start 04/12/16 at 18:00 Hydralazine HCl 10 mg 10 mg Q4H PRN IV HTN; Start 04/13/16 at 20:00 Total Parenteral Nutrition (Tpn) 1,000 ml @ 40 mls/hr Q24H IV ; Start 04/15/16 at 15:00 DEMETRA COLUNGA M.D. Apr 15, 2016 11:50
--- NOTE | 2016-04-15 15:42 | PN ---
Date/Time of Note Date/Time of Note DATE: 04/15/16 TIME: 15:40 Assessment/Plan VTE Prophylaxis VTE Prophylaxis Intervention: SCD's Lines/Catheters IV Catheter Type (from Nrsg): PORT Urinary Cath still in place: Yes Reason Cath still needed: urinary retention Assessment/Plan Chief Complaint/Hosp Course ASSESSMENT AND PLAN: - Progressive recurrent ovarian carcinoma. Status post chemotherapy. Dr. Foy is following in hematology/oncology consultation. Dr. Johnston is following from a surgery standpoint. S/p bowel resection 04/07. Continue follow -up per general surgery recommendations. Patient is n.p.o. we will start TPN. - Intractable abdominal pain and nausea secondary to #1, resolved. Continue Dilaudid p.r.n. for pain and Zofran p.r.n. for nausea. - Bilateral lower extremities edema, ultrasound is negative for DVT. Continue Lovenox for deep venous thrombosis prophylaxis and Protonix for peptic ulcer disease prophylaxis. Further recommendations based on clinical course. Plan of care was discussed with Dr. Bravo. Problems: Subjective 24 Hr Interval Summary Free Text/Dictation Patient is got up out of bed, remain afebrile. Exam/Review of Systems Vital Signs Vitals Vital Signs Date Time Temp Pulse Resp B/P Pulse Ox O2 Delivery O2 Flow Rate FiO2 04/15/16 12:00 18 04/15/16 07:29 98.7 74 137/73 98 04/13/16 08:30 Nasal Cannula 2.0 Intake and Output 04/14/16 04/14/16 04/15/16 15:00 23:00 07:00 Intake Total 1800 ml 1650 ml 1000 ml Output Total 1130 ml 2460 ml Balance 1800 ml 520 ml -1460 ml Exam PHYSICAL ASSESSMENT: GENERAL: Well-developed, well-nourished female currently is awake, alert. HEENT: Head is atraumatic, normocephalic. NGT to LWS. NECK: Supple, no cervical lymphadenopathy, no thyromegaly. CHEST: Lungs clear bilaterally. There is no rhonchi, wheezes, rales noted. CARDIOVASCULAR: Normal S1, S2. No murmurs, gallops, clicks, rubs noted. ABDOMEN: Round, soft, s/p surgery with midline incision, EMERITA. SKIN: There is no rash, petechiae noted. EXTREMITIES: No edema, clubbing, cyanosis. Pulses equal bilaterally 2+. Mild edema. SKIN: There is no rash or petechiae noted. NEUROLOGICAL: The patient is awake, alert and oriented x4. Results Result Diagram: 04/15/165 04/15/165 Results 24 hrs Laboratory Tests Test 04/15/16 04:45 Anion Gap 11 Basophils # 0.0 Basophils % 0.0 Blood Urea Nitrogen 8 Calcium Level 6.9 L Carbon Dioxide Level 25 Chloride Level 106 Creatinine 0.48 Eosinophils # 0.1 Eosinophils % 0.8 Glucose Level 391 #H Hematocrit 27.3 #L Hemoglobin 9.0 #L Lymphocytes # 0.6 L Lymphocytes % 6.9 L Mean Corpuscular Hemoglobin 30.9 Mean Corpuscular Hemoglobin Concent 33.0 Mean Corpuscular Volume 93.8 Mean Platelet Volume 11.1 H Monocytes # 0.3 Monocytes % 3.8 Neutrophils # 7.9 H Neutrophils % 87.9 H Nucleated Red Blood Cells # 0.0 Nucleated Red Blood Cells % 0.0 Platelet Count 70 #L Potassium Level 5.0 Red Blood Count 2.91 #L Red Cell Distribution Width 15.4 H Sodium Level 137 White Blood Count 9.0 Medications Medications Current Medications Acetaminophen/ Hydrocodone Bitart ([place] (5/325)) 1 tab Q6H PRN PO MODERATE PAIN LEVEL 4-6 Last administered on 04/14/16 14:49; Admin Dose 1 TAB; Start at 18:00 Zolpidem Tartrate (Ambien) 5 mg HS PRN PO INSOMNIA Last administered on 23:48; Admin Dose 5 MG; Start 04/01/16 at 22:00 Diphenhydramine HCl (Benadryl) 25 mg Q6H PRN PO ITCHING Last administered on 06:49; Admin Dose 25 MG; Start 04/02/16 at 07:00 Al Hydrox/Mg Hydrox/Simethicone (Mag-Al Plus) 30 ml Q6H PRN PO GASTROINTESTINAL UPSET Last administered on 04/06/16 19:40; Admin Dose 30 ML; Start 04/02/16 at 17:30 Simethicone (Mylicon) 80 mg Q6 PO Last administered on 04/15/16 12:43; Admin Dose 80 MG; Start 04/02/16 at 18:00 Clonidine HCl 1 patch 1 patch Q7D TRANSDERM Last administered on 04/11/16 13:23 ; Admin Dose 1 PATCH; Start 04/04/16 at 13:15 Potassium Cl/ Dextrose/Lact Ringer's 1,000 ml @ 70 mls/hr [id number] IV Last administered on 04/15/16 12:43; Admin Dose 70 MLS/HR; Start 04/07/16 at 23:30 Albumin Human (Alburx) 500 ml @ 250 mls/hr ONCE PRN IVPB U/O BELOW 30 ML/HR X 2 HR; Start 04/07/16 at 22:30 Pantoprazole (Protonix Iv) 40 mg DAILY@06 IV Last administered on 04/15/16 05: 31; Admin Dose 40 MG; Start 04/08/16 at 06:00 Hydromorphone HCl (Dilaudid SPECIAL DISTRIBUTION CLERK) 0.3 MG DOSE 15 ... Q4PCA IV Last administered on 04/15/16 06:01; Admin Dose 6 MG; Start 04/12/16 at 18:00 Hydralazine HCl 10 mg 10 mg Q4H PRN IV HTN; Start 04/13/16 at 20:00 Total Parenteral Nutrition 1,000 ml @ 40 mls/hr Q24H IV ; Start 04/15/16 at 15: 00 Ondansetron HCl/ Dextrose (Zofran Inj/D5W) 54 ml @ 108 mls/hr Q6H PRN IV NAUSEA AND/OR VOMITING; Start 04/15/16 at 12:30 Diagnostic Test (Pha) (Accucheck) 1 ea Q4 XX ; Start 04/15/16 at 17:00 LARRY MEJIA Apr 15, 2016 15:42
[2016-04-15] MEDS: TPN 1,000 ML IV SCH (16:27)
[2016-04-15] MEDS: ACCU-CHEK XX SCH ×2 (17:00→20:44)
[2016-04-15] MEDS: FAT EMULSION 20% 250 ML IV SCH (18:19)
[2016-04-15 19:00] VITALS: BP 152/89; RESP 18
[2016-04-16] MEDS: ACCU-CHEK XX SCH ×6 (00:16→21:39)
[2016-04-16] MEDS: HYDROmorphONE 0.2 MG/ML PCA IV SCH ×2 (04:21→15:01)
[2016-04-16 05:12] LABS: ADD SCAN DIFF NO
[2016-04-16] MEDS: TPN 1,000 ML IV SCH ×3 (05:18→19:58)
[2016-04-16] MEDS: PANTOPRAZOLE 40 MG INJ IV SCH (05:21)
[2016-04-16 05:28] LABS: ABNORMAL IP MESSAGE 1; BASOPHILS % 0.1 % (0.0-2.0); EOSINOPHILS % 0.5 % (0.0-7.0); HEMATOCRIT 26.9 % (37.0-47.0); HEMOGLOBIN 9.1 g/dl (12.0-16.0); LYMPHOCYTES # 0.8 10^3/ul (0.8-2.9); LYMPHOCYTES % 8.9 % (15.0-51.0); MEAN CORPUSCULAR HEMOGLOBIN 31.2 pg (29.0-33.0); MEAN CORPUSCULAR HGB CONC 33.8 g/dl (32.0-37.0); MEAN CORPUSCULAR VOLUME 92.1 fl (82.0-101.0); MEAN PLATELET VOLUME 11.7 fl (7.4-10.4); MONOCYTE # 0.4 10^3/ul (0.3-0.9); MONOCYTES % 4.7 % (0.0-11.0); NEUTROPHIL # 7.2 10^3/ul (1.6-7.5); NEUTROPHILS % 85.3 % (39.0-77.0); PLATELET COUNT 63 10^3/UL (140-415); RED BLOOD COUNT 2.92 10^6/ul (4.20-5.40); RED CELL DISTRIBUTION WIDTH 15.8 % (11.5-14.5); WHITE BLOOD COUNT 8.5 10^3/ul (4.8-10.8)
[2016-04-16 05:40] LABS: CREATININE 0.45 mg/dl (0.44-1.00)
[2016-04-16 05:41] LABS: CALCIUM 6.3 mg/dl (8.4-10.2); MAGNESIUM 1.3 mg/dl (1.7-2.5); PHOSPHORUS 2.5 mg/dl (2.5-4.9)
[2016-04-16 05:43] LABS: POTASSIUM 2.8 mmol/L (3.5-5.1)
[2016-04-16] MEDS ORDERED: POTASSIUM CHLORIDE 250 ML IVPB ONE (06:00)
[2016-04-16 08:17] VITALS: BP 169/99; RESP 18
[2016-04-16] MEDS: hydrALAzine 20 MG INJ IV PRN (08:30)
--- NOTE | 2016-04-16 09:42 | CONS ---
Date/Time of Note Date/Time of Note DATE: 04/16/16 TIME: 09:39 Assessment/Plan Assessment/Plan Chief Complaint/Hosp Course 61-year-old female with stage IIIB ovarian cancer s/p surgery by Dr. Johnston in May 2015 and 6 cycles of carbo/taxol with persistently elevated CA125 (now 39.6), recently admitted to outside hospital with CT concerning for persistent disease, now admitted with 1 month of left flank pain. Recent PET/ CT 03-26-16 showed progressive disease with large volume of peripherally FDG avid loculated abdominal and pelvic ascites with increased omental caking and peritoneal nodularity noted throughout the abdomen and pelvis consistent with progressive recurrent ovarian carcinoma. Pt is now s/p optimal CRS for recurrent disease on 04/08. She was left with < 5mm of residual disease. - LE Doppler do not reveal evidence of DVT - cont post op care per surgery. pt is ambulating. continue TPN - continue Zofran to 8mg IV q 6 prn nausea. nausea now under control - plan to start adjuvant chemotherapy in house when cleared by [employer] onc. plan to given 1 dose of Gemcitabine/ Cisplatin. PT is still not tolerating a po diet - patient responded well to blood transfusion ordered for drop in H/H - discussed starting lasix with primary team Approximately 40 min were spent at patient's bedside and in coordination of her care Problems: Consultation Date/Type/Reason Admit Date/Time Apr 02, 2016 at 10:07 Initial Consult Date 04/02/16 Type of Consultation: Hematology/Oncology Reason for Consultation recurrent ovarian cancer Referring Provider: BRIAN ZAZUETA MD 24 HR Interval Summary Free Text/Dictation pt still c/o pain. using dilaudid APPEALS MANAGER. TPN was started. draining from EMERITA drain. nausea controlled Exam/Review of Systems Vital Signs Vitals Vital Signs Date Time Temp Pulse Resp B/P Pulse Ox O2 Delivery O2 Flow Rate FiO2 04/16/16 08:17 97.8 85 18 169/99 98 04/15/16 20:44 Nasal Cannula 2.0 Intake and Output 04/15/16 04/15/16 04/16/16 15:00 23:00 07:00 Intake Total 1000 ml 350 ml 1181 ml Output Total 1020 ml 145 ml Balance 1000 ml -670 ml 1036 ml Exam Constitutional: alert, distress, oriented Psych: anxiety, depression Head: normocephalic Eyes: nl conjunctiva ENMT: nl external ears & nose Neck: non-tender, supple Respiratory: clear to auscultation, normal air movement Gastrointestinal: ascites, distended, other (EMERITA drain with serosanguanous fluid ), surgical scars, tender Musculoskeletal: nl extremities to inspection, swelling Results Result Diagram: 04/16/163 04/16/16 0443 Results 24 hrs Laboratory Tests Test 04/15/16 18:19 04/15/16 20:43 04/16/16 00:16 04/16/16 04:43 Bedside Glucose 124 115 131 Anion Gap 10 Basophils # 0.0 Basophils % 0.1 Blood Urea Nitrogen 10 Calcium Level 6.3 L Carbon Dioxide Level 23 Chloride Level 110 Creatinine 0.45 Eosinophils # 0.0 Eosinophils % 0.5 Glucose Level 110 # Hematocrit 26.9 L Hemoglobin 9.1 L Lymphocytes # 0.8 Lymphocytes % 8.9 L Magnesium Level 1.3 L Mean Corpuscular Hemoglobin 31.2 Mean Corpuscular Hemoglobin Concent 33.8 Mean Corpuscular Volume 92.1 Mean Platelet Volume 11.7 H Monocytes # 0.4 Monocytes % 4.7 Neutrophils # 7.2 Neutrophils % 85.3 H Nucleated Red Blood Cells # 0.0 Nucleated Red Blood Cells % 0.0 Phosphorus Level 2.5 Platelet Count 63 L Potassium Level 2.8 #*L Red Blood Count 2.92 L Red Cell Distribution Width 15.8 H Sodium Level 140 White Blood Count 8.5 Test 04/16/16 05:19 04/16/16 08:19 Bedside Glucose 123 130 Medications Medications Current Medications Acetaminophen/ Hydrocodone Bitart ([place] (5/325)) 1 tab Q6H PRN PO MODERATE PAIN LEVEL 4-6 Last administered on 04/14/16 14:49; Admin Dose 1 TAB; Start at 18:00 Zolpidem Tartrate (Ambien) 5 mg HS PRN PO INSOMNIA Last administered on 23:48; Admin Dose 5 MG; Start 04/01/16 at 22:00 Diphenhydramine HCl (Benadryl) 25 mg Q6H PRN PO ITCHING Last administered on 06:49; Admin Dose 25 MG; Start 04/02/16 at 07:00 Al Hydrox/Mg Hydrox/Simethicone (Mag-Al Plus) 30 ml Q6H PRN PO GASTROINTESTINAL UPSET Last administered on 04/06/16 19:40; Admin Dose 30 ML; Start 04/02/16 at 17:30 Simethicone (Mylicon) 80 mg Q6 PO Last administered on 04/16/16 05:21; Admin Dose 80 MG; Start 04/02/16 at 18:00 Clonidine HCl 1 patch 1 patch Q7D TRANSDERM Last administered on 04/11/16 13:23 ; Admin Dose 1 PATCH; Start 04/04/16 at 13:15 Albumin Human (Alburx) 500 ml @ 250 mls/hr ONCE PRN IVPB U/O BELOW 30 ML/HR X 2 HR; Start 04/07/16 at 22:30 Pantoprazole (Protonix Iv) 40 mg DAILY@06 IV Last administered on 04/16/16 05: 21; Admin Dose 40 MG; Start 04/08/16 at 06:00 Hydromorphone HCl (Dilaudid APPEALS MANAGER) 0.3 MG DOSE 15 ... Q4PCA IV Last administered on 04/16/16 04:21; Admin Dose 6 MG; Start 04/12/16 at 18:00 Hydralazine HCl 10 mg 10 mg Q4H PRN IV HTN Last administered on 04/16/16 08:30 ; Admin Dose 10 MG; Start 04/13/16 at 20:00 Ondansetron HCl/ Dextrose (Zofran Inj/D5W) 54 ml @ 108 mls/hr Q6H PRN IV NAUSEA AND/OR VOMITING; Start 04/15/16 at 12:30 Diagnostic Test (Pha) 1 ea 1 ea Q4 XX Last administered on 04/16/16 05:20; Admin Dose 1 EA; Start 04/15/16 at 17:00 Fat Emulsion Intravenous 250 ml @ 31.25 mls/ hr Q24H IV Last administered on 18:19; Admin Dose 31.25 MLS/HR; Start 04/15/16 at 18:00 Total Parenteral Nutrition 1,000 ml @ 70 mls/hr [id number] IV Last administered on 04/16/16 06:31; Admin Dose 70 MLS/HR; Start 04/16/16 at 06:01 Potassium Chloride (KCl 40 MEQ/250 ML NS) 250 ml @ 62.5 mls/hr ONCE ONCE IVPB Last administered on 04/16/16t 06:32; Admin Dose 62.5 MLS/HR; Start 04/16/16 at 06:00; Stop 04/16/16 at 09:59 DEMETRA COLUNGA M.D. Apr 16, 2016 09:42
[2016-04-16 11:24] VITALS: BP 115/77; PULSE 96; RESP 22
[2016-04-16] MEDS: FUROSEMIDE 20 MG INJ IV SCH ×2 (11:52→18:13)
[2016-04-16] MEDS ORDERED: MAGNESIUM SULFATE 2 GM/50 ML 50 ML IVPB SCH (12:30)
--- NOTE | 2016-04-16 17:03 | PN ---
Date/Time of Note Date/Time of Note DATE: 04/16/16 TIME: 17:02 Assessment/Plan VTE Prophylaxis VTE Prophylaxis Intervention: LMWH Lines/Catheters IV Catheter Type (from Nrs): Peripheral IV Urinary Cath still in place: Yes Reason Cath still needed: urinary retention Assessment/Plan Assessment/Plan - Progressive recurrent ovarian carcinoma. Status post chemotherapy. - per Dr. Foy in hematology/oncology consultation. - per Dr. Johnston is following from a surgery standpoint. S/p bowel resection 04/07. Continue follow-up per general surgery recommendations. - Patient is n.p.o. , n TPN. - Intractable abdominal pain and nausea secondary to #1, resolved. Continue Dilaudid p.r.n. for pain and Zofran p.r.n. for nausea. - Bilateral lower extremities edema, ultrasound is negative for DVT. - Hypokalemia- replet K, AM LABS - Hypomagnesium- replet Mag, am Mag lab - Lovenox for deep venous thrombosis prophylaxis - Protonix for peptic ulcer disease prophylaxis. Further recommendations based on clinical course. Plan of care was discussed with Dr. Bravo /staff Subjective 24 Hr Interval Summary Eyes: no complaints ENT: no complaints Respiratory: no complaints Cardiovascular: no complaints Gastrointestinal: pain Genitourinary: no complaints Musculoskeletal: no complaints Skin: no complaints Neurologic: no complaints Endocrine: no complaints Lymphatic: no complaints Psychological: no complaints Exam/Review of Systems Vital Signs Vitals Vital Signs Date Time Temp Pulse Resp B/P Pulse Ox O2 Delivery O2 Flow Rate FiO2 04/16/16 13:00 22 04/16/16 11:24 97.7 96 115/77 98 CPAP 2.0 Intake and Output 04/15/16 04/15/16 04/16/16 15:00 23:00 07:00 Intake Total 1000 ml 350 ml 1181 ml Output Total 1020 ml 145 ml Balance 1000 ml -670 ml 1036 ml Exam Constitutional: alert, oriented, well developed Psych: nl mood/affect ENMT: nl external ears & nose Neck: non-tender Respiratory: clear to auscultation Cardiovascular: nl pulses Gastrointestinal: non-tender, soft Musculoskeletal: nl extremities to inspection Extremities: edema Neurological: nl mental status, nl speech Skin: nl turgor Lymph: nontender Results Result Diagram: 04/16/1644204/16/16442 Results 24 hrs Laboratory Tests Test 04/15/16 18:19 04/15/16 20:43 04/16/16 00:16 04/16/16 04:43 Bedside Glucose 124 115 131 Anion Gap 10 Basophils # 0.0 Basophils % 0.1 Blood Urea Nitrogen 10 Calcium Level 6.3 L Carbon Dioxide Level 23 Chloride Level 110 Creatinine 0.45 Eosinophils # 0.0 Eosinophils % 0.5 Glucose Level 110 # Hematocrit 26.9 L Hemoglobin 9.1 L Lymphocytes # 0.8 Lymphocytes % 8.9 L Magnesium Level 1.3 L Mean Corpuscular Hemoglobin 31.2 Mean Corpuscular Hemoglobin Concent 33.8 Mean Corpuscular Volume 92.1 Mean Platelet Volume 11.7 H Monocytes # 0.4 Monocytes % 4.7 Neutrophils # 7.2 Neutrophils % 85.3 H Nucleated Red Blood Cells # 0.0 Nucleated Red Blood Cells % 0.0 Phosphorus Level 2.5 Platelet Count 63 L Potassium Level 2.8 #*L Red Blood Count 2.92 L Red Cell Distribution Width 15.8 H Sodium Level 140 White Blood Count 8.5 Test 04/16/16 05:19 04/16/16 08:19 04/16/16 13:11 Bedside Glucose 123 130 130 Medications Medications Current Medications Acetaminophen/ Hydrocodone Bitart ([place] (5/325)) 1 tab Q6H PRN PO MODERATE PAIN LEVEL 4-6 Last administered on 04/14/16 14:49; Admin Dose 1 TAB; Start at 18:00 Zolpidem Tartrate (Ambien) 5 mg HS PRN PO INSOMNIA Last administered on 23:48; Admin Dose 5 MG; Start 04/01/16 at 22:00 Diphenhydramine HCl (Benadryl) 25 mg Q6H PRN PO ITCHING Last administered on 06:49; Admin Dose 25 MG; Start 04/02/16 at 07:00 Al Hydrox/Mg Hydrox/Simethicone (Mag-Al Plus) 30 ml Q6H PRN PO GASTROINTESTINAL UPSET Last administered on 04/06/16 19:40; Admin Dose 30 ML; Start 04/02/16 at 17:30 Simethicone (Mylicon) 80 mg Q6 PO Last administered on 04/16/16 11:52; Admin Dose 80 MG; Start 04/02/16 at 18:00 Clonidine HCl 1 patch 1 patch Q7D TRANSDERM Last administered on 04/11/16 13:23 ; Admin Dose 1 PATCH; Start 04/04/16 at 13:15 Albumin Human (Alburx) 500 ml @ 250 mls/hr ONCE PRN IVPB U/O BELOW 30 ML/HR X 2 HR; Start 04/07/16 at 22:30 Pantoprazole (Protonix Iv) 40 mg DAILY@06 IV Last administered on 04/16/16 05: 21; Admin Dose 40 MG; Start 04/08/16 at 06:00 Hydromorphone HCl (Dilaudid GAME TECHNICIAN) 0.3 MG DOSE 15 ... Q4PCA IV Last administered on 04/16/16 15:01; Admin Dose 6 MG; Start 04/12/16 at 18:00 Hydralazine HCl 10 mg 10 mg Q4H PRN IV HTN Last administered on 04/16/16 08:30 ; Admin Dose 10 MG; Start 04/13/16 at 20:00 Ondansetron HCl/ Dextrose (Zofran Inj/D5W) 54 ml @ 108 mls/hr Q6H PRN IV NAUSEA AND/OR VOMITING; Start 04/15/16 at 12:30 Diagnostic Test (Pha) 1 ea 1 ea Q4 XX Last administered on 04/16/16 05:20; Admin Dose 1 EA; Start 04/15/16 at 17:00 Fat Emulsion Intravenous 250 ml @ 31.25 mls/ hr Q24H IV Last administered on 18:19; Admin Dose 31.25 MLS/HR; Start 04/15/16 at 18:00 Total Parenteral Nutrition (Tpn) 1,000 ml @ 70 mls/hr [id number] IV Last administered on 04/16/16 06:31; Admin Dose 70 MLS/HR; Start 04/16/16 at 06:01 BLAKE BRUMFIELD Apr 16, 2016 17:02
[2016-04-16] MEDS: FAT EMULSION 20% 250 ML IV SCH (18:12)
[2016-04-16 18:15] VITALS: BP 134/85; PULSE 85; RESP 20
[2016-04-16 19:00] VITALS: BP 131/91; RESP 18
--- NOTE | 2016-04-16 22:02 | PN ---
Date/Time of Note Date/Time of Note DATE: 04/16/16 TIME: 22:00 Assessment/Plan VTE Prophylaxis VTE Prophylaxis Intervention: SCD's Lines/Catheters IV Catheter Type (from Nrs): Peripheral IV Urinary Cath still in place: Yes Assessment/Plan Chief Complaint/Hosp Course Ovarian cancer with recurrence would benefit from secondary CRS even though persistent disease because the problem is her chemo was delayed 3 months postop. Informed of need to start chemo nathan postop and will call [facility] Problems: Assessment/Plan A/P- doing reasonable. OOB more but still awaiting bowel fct. Subjective 24 Hr Interval Summary Free Text/Dictation S- Feels better less pain, - flatus yet. OOB more and less wound drainage O- Resp- clear CVS- NSR Abd- appropriate tenderness and incision clean ; packed Ext- NT increased edema A/P- doing reasonable. OOB more but still awaiting bowel fct. Exam/Review of Systems Vital Signs Vitals Vital Signs Date Time Temp Pulse Resp B/P Pulse Ox O2 Delivery O2 Flow Rate FiO2 04/16/16 19:46 Nasal Cannula 2.0 04/16/16 19:00 98.0 87 18 131/91 97 Intake and Output 04/15/16 04/15/16 04/16/16 15:00 23:00 07:00 Intake Total 1000 ml 350 ml 1181 ml Output Total 1020 ml 145 ml Balance 1000 ml -670 ml 1036 ml Results Result Diagram: 04/16/16 0443 04/16/16 0443 Results 24 hrs Laboratory Tests Test 04/16/16 00:16 04/16/16 04:43 04/16/16 05:19 04/16/16 08:19 Bedside Glucose 131 123 130 Anion Gap 10 Basophils # 0.0 Basophils % 0.1 Blood Urea Nitrogen 10 Calcium Level 6.3 L Carbon Dioxide Level 23 Chloride Level 110 Creatinine 0.45 Eosinophils # 0.0 Eosinophils % 0.5 Glucose Level 110 # Hematocrit 26.9 L Hemoglobin 9.1 L Lymphocytes # 0.8 Lymphocytes % 8.9 L Magnesium Level 1.3 L Mean Corpuscular Hemoglobin 31.2 Mean Corpuscular Hemoglobin Concent 33.8 Mean Corpuscular Volume 92.1 Mean Platelet Volume 11.7 H Monocytes # 0.4 Monocytes % 4.7 Neutrophils # 7.2 Neutrophils % 85.3 H Nucleated Red Blood Cells # 0.0 Nucleated Red Blood Cells % 0.0 Phosphorus Level 2.5 Platelet Count 63 L Potassium Level 2.8 #*L Red Blood Count 2.92 L Red Cell Distribution Width 15.8 H Sodium Level 140 White Blood Count 8.5 Test 04/16/16 13:11 04/16/16 17:31 04/16/16 21:38 Bedside Glucose 130 116 129 Medications Medications Current Medications Acetaminophen/ Hydrocodone Bitart ([place] (5/325)) 1 tab Q6H PRN PO MODERATE PAIN LEVEL 4-6 Last administered on 04/14/16 14:49; Admin Dose 1 TAB; Start at 18:00 Zolpidem Tartrate (Ambien) 5 mg HS PRN PO INSOMNIA Last administered on 23:48; Admin Dose 5 MG; Start 04/01/16 at 22:00 Diphenhydramine HCl (Benadryl) 25 mg Q6H PRN PO ITCHING Last administered on 06:49; Admin Dose 25 MG; Start 04/02/16 at 07:00 Al Hydrox/Mg Hydrox/Simethicone (Mag-Al Plus) 30 ml Q6H PRN PO GASTROINTESTINAL UPSET Last administered on 04/06/16 19:40; Admin Dose 30 ML; Start 04/02/16 at 17:30 Simethicone (Mylicon) 80 mg Q6 PO Last administered on 04/16/16 18:12; Admin Dose 80 MG; Start 04/02/16 at 18:00 Clonidine HCl 1 patch 1 patch Q7D TRANSDERM Last administered on 04/11/16 13:23 ; Admin Dose 1 PATCH; Start 04/04/16 at 13:15 Albumin Human (Alburx) 500 ml @ 250 mls/hr ONCE PRN IVPB U/O BELOW 30 ML/HR X 2 HR; Start 04/07/16 at 22:30 Pantoprazole (Protonix Iv) 40 mg DAILY@06 IV Last administered on 04/16/16 05: 21; Admin Dose 40 MG; Start 04/08/16 at 06:00 Hydromorphone HCl (Dilaudid PROJECT CONSULTANT) 0.3 MG DOSE 15 ... Q4PCA IV Last administered on 04/16/16 15:01; Admin Dose 6 MG; Start 04/12/16 at 18:00 Hydralazine HCl 10 mg 10 mg Q4H PRN IV HTN Last administered on 04/16/16 08:30 ; Admin Dose 10 MG; Start 04/13/16 at 20:00 Ondansetron HCl/ Dextrose (Zofran Inj/D5W) 54 ml @ 108 mls/hr Q6H PRN IV NAUSEA AND/OR VOMITING; Start 04/15/16 at 12:30 Diagnostic Test (Pha) 1 ea 1 ea Q4 XX Last administered on 04/16/16 21:39; Admin Dose 1 EA; Start 04/15/16 at 17:00 Fat Emulsion Intravenous 250 ml @ 31.25 mls/ hr Q24H IV Last administered on 18:12; Admin Dose 31.25 MLS/HR; Start 04/15/16 at 18:00 Total Parenteral Nutrition (Tpn) 1,000 ml @ 70 mls/hr [id number] IV Last administered on 04/16/16 19:58; Admin Dose 70 MLS/HR; Start 04/16/16 at 06:01 ANDI WADDELL MD Apr 16, 2016 22:02
[2016-04-17] MEDS: ACCU-CHEK XX SCH ×6 (00:41→21:00)
[2016-04-17] MEDS: HYDROmorphONE 0.2 MG/ML PCA IV SCH ×3 (00:50→22:32)
[2016-04-17] MEDS: PANTOPRAZOLE 40 MG INJ IV SCH (05:19)
[2016-04-17] MEDS: FUROSEMIDE 20 MG INJ IV SCH ×2 (05:20→17:12)
[2016-04-17 05:34] LABS: ADD SCAN DIFF NO
[2016-04-17 05:46] LABS: ABNORMAL IP MESSAGE 1; BASOPHILS % 0.1 % (0.0-2.0); EOSINOPHILS # 0.1 10^3/ul (0.0-0.5); EOSINOPHILS % 0.9 % (0.0-7.0); HEMATOCRIT 29.8 % (37.0-47.0); HEMOGLOBIN 9.8 g/dl (12.0-16.0); LYMPHOCYTES # 0.8 10^3/ul (0.8-2.9); LYMPHOCYTES % 9.5 % (15.0-51.0); MEAN CORPUSCULAR HEMOGLOBIN 30.4 pg (29.0-33.0); MEAN CORPUSCULAR HGB CONC 32.9 g/dl (32.0-37.0); MEAN CORPUSCULAR VOLUME 92.5 fl (82.0-101.0); MEAN PLATELET VOLUME 11.2 fl (7.4-10.4); MONOCYTE # 0.6 10^3/ul (0.3-0.9); MONOCYTES % 6.9 % (0.0-11.0); NEUTROPHIL # 6.9 10^3/ul (1.6-7.5); NEUTROPHILS % 82.2 % (39.0-77.0); PLATELET COUNT 78 10^3/UL (140-415); RED BLOOD COUNT 3.22 10^6/ul (4.20-5.40); RED CELL DISTRIBUTION WIDTH 16.2 % (11.5-14.5); WHITE BLOOD COUNT 8.4 10^3/ul (4.8-10.8)
[2016-04-17 05:57] LABS: POTASSIUM 3.4 mmol/L (3.5-5.1)
[2016-04-17 05:59] LABS: CREATININE 0.53 mg/dl (0.44-1.00)
[2016-04-17 06:00] LABS: CALCIUM 7.6 mg/dl (8.4-10.2); PHOSPHORUS 3.9 mg/dl (2.5-4.9)
[2016-04-17 06:01] LABS: MAGNESIUM 1.9 mg/dl (1.7-2.5)
[2016-04-17 08:30] VITALS: BP 135/81; RESP 18
--- NOTE | 2016-04-17 10:55 | CONS ---
Date/Time of Note Date/Time of Note DATE: 04/17/16 TIME: 10:54 Assessment/Plan Assessment/Plan Chief Complaint/Hosp Course 61-year-old female with stage IIIB ovarian cancer s/p surgery by Dr. Johnston in May 2015 and 6 cycles of carbo/taxol with persistently elevated CA125 (now 39.6), recently admitted to outside hospital with CT concerning for persistent disease, now admitted with 1 month of left flank pain. Recent PET/ CT 03-26-16 showed progressive disease with large volume of peripherally FDG avid loculated abdominal and pelvic ascites with increased omental caking and peritoneal nodularity noted throughout the abdomen and pelvis consistent with progressive recurrent ovarian carcinoma. Pt is now s/p optimal CRS for recurrent disease on 04/08. She was left with < 5mm of residual disease. - LE Doppler do not reveal evidence of DVT - cont post op care per surgery. pt is ambulating. continue TPN - continue Zofran to 8mg IV q 6 prn nausea. nausea now under control - plan to start adjuvant chemotherapy in house when cleared by PIPELINES MANAGER onc. plan to given 1 dose of Gemcitabine/ Cisplatin. PT is still not tolerating a po diet - patient responded well to blood transfusion ordered for drop in H/H - discussed starting lasix with primary team Approximately 40 min were spent at patient's bedside and in coordination of her care Problems: Consultation Date/Type/Reason Admit Date/Time Apr 02, 2016 at 10:07 Initial Consult Date 04/02/16 Type of Consultation: Hematology/Oncology Reason for Consultation recurrent ovarian cancer Referring Provider: BRIAN ZAZUETA MD 24 HR Interval Summary Free Text/Dictation pt's pain under better control today. nausea under control Exam/Review of Systems Vital Signs Vitals Vital Signs Date Time Temp Pulse Resp B/P Pulse Ox O2 Delivery O2 Flow Rate FiO2 04/17/16 09:54 Nasal Cannula 2.0 04/17/16 08:30 98.1 75 18 135/81 98 Intake and Output 04/16/16 04/16/16 04/17/16 15:00 23:00 07:00 Intake Total 300 ml 1680 ml 880 ml Output Total 2110 ml 1200 ml Balance 300 ml -430 ml -320 ml Exam Constitutional: alert, oriented Psych: nl mood/affect, no complaints Head: normocephalic Eyes: nl conjunctiva ENMT: other (NGT in place) Neck: supple Respiratory: clear to auscultation, normal air movement Cardiovascular: regular rate and rhythm Gastrointestinal: soft Musculoskeletal: nl extremities to inspection, nl gait and stance Extremities: normal pulses Results Result Diagram: 04/17/16 04204/17/16 0420 Results 24 hrs Laboratory Tests Test 04/16/16 13:11 04/16/16 17:31 04/16/16 21:38 04/17/16 00:41 Bedside Glucose 130 116 129 132 Test 04/17/16 04:20 04/17/16 05:18 04/17/16 08:53 Anion Gap 9 Basophils # 0.0 Basophils % 0.1 Blood Urea Nitrogen 17 Calcium Level 7.6 L Carbon Dioxide Level 28 Chloride Level 103 Creatinine 0.53 Eosinophils # 0.1 Eosinophils % 0.9 Glucose Level 143 Hematocrit 29.8 L Hemoglobin 9.8 L Lymphocytes # 0.8 Lymphocytes % 9.5 L Magnesium Level 1.9 Mean Corpuscular Hemoglobin 30.4 Mean Corpuscular Hemoglobin Concent 32.9 Mean Corpuscular Volume 92.5 Mean Platelet Volume 11.2 H Monocytes # 0.6 Monocytes % 6.9 Neutrophils # 6.9 Neutrophils % 82.2 H Nucleated Red Blood Cells # 0.0 Nucleated Red Blood Cells % 0.0 Phosphorus Level 3.9 Platelet Count 78 #L Potassium Level 3.4 L Red Blood Count 3.22 L Red Cell Distribution Width 16.2 H Sodium Level 137 White Blood Count 8.4 Bedside Glucose 165 121 Medications Medications Current Medications Acetaminophen/ Hydrocodone Bitart ([place] (5/325)) 1 tab Q6H PRN PO MODERATE PAIN LEVEL 4-6 Last administered on 04/14/16 14:49; Admin Dose 1 TAB; Start at 18:00 Zolpidem Tartrate (Ambien) 5 mg HS PRN PO INSOMNIA Last administered on 23:48; Admin Dose 5 MG; Start 04/01/16 at 22:00 Diphenhydramine HCl (Benadryl) 25 mg Q6H PRN PO ITCHING Last administered on 06:49; Admin Dose 25 MG; Start 04/02/16 at 07:00 Al Hydrox/Mg Hydrox/Simethicone (Mag-Al Plus) 30 ml Q6H PRN PO GASTROINTESTINAL UPSET Last administered on 04/06/16 19:40; Admin Dose 30 ML; Start 04/02/16 at 17:30 Simethicone (Mylicon) 80 mg Q6 PO Last administered on 04/17/16 05:19; Admin Dose 80 MG; Start 04/02/16 at 18:00 Clonidine HCl 1 patch 1 patch Q7D TRANSDERM Last administered on 04/11/16 13:23 ; Admin Dose 1 PATCH; Start 04/04/16 at 13:15 Albumin Human (Alburx) 500 ml @ 250 mls/hr ONCE PRN IVPB U/O BELOW 30 ML/HR X 2 HR; Start 04/07/16 at 22:30 Pantoprazole (Protonix Iv) 40 mg DAILY@06 IV Last administered on 04/17/16 05: 19; Admin Dose 40 MG; Start 04/08/16 at 06:00 Hydromorphone HCl (Dilaudid GOLD MINER) 0.3 MG DOSE 15 ... Q4PCA IV Last administered on 04/17/16 00:50; Admin Dose 6 MG; Start 04/12/16 at 18:00 Hydralazine HCl 10 mg 10 mg Q4H PRN IV HTN Last administered on 04/16/16 08:30 ; Admin Dose 10 MG; Start 04/13/16 at 20:00 Ondansetron HCl/ Dextrose (Zofran Inj/D5W) 54 ml @ 108 mls/hr Q6H PRN IV NAUSEA AND/OR VOMITING; Start 04/15/16 at 12:30 Diagnostic Test (Pha) 1 ea 1 ea Q4 XX Last administered on 04/17/16 05:19; Admin Dose 1 EA; Start 04/15/16 at 17:00 Fat Emulsion Intravenous 250 ml @ 31.25 mls/ hr Q24H IV Last administered on 18:12; Admin Dose 31.25 MLS/HR; Start 04/15/16 at 18:00 Total Parenteral Nutrition (Tpn) 1,000 ml @ 65 mls/hr [id number] IV Last administered on 04/16/16 19:58; Admin Dose 70 MLS/HR; Start 04/16/16 at 06:01 DEMETRA COLUNGA M.D. Apr 17, 2016 10:55
[2016-04-17] MEDS: TPN 1,000 ML IV SCH ×2 (11:03→12:04)
--- NOTE | 2016-04-17 16:58 | PN ---
Date/Time of Note Date/Time of Note DATE: 04/17/16 TIME: 16:57 Assessment/Plan VTE Prophylaxis VTE Prophylaxis Intervention: SCD's Lines/Catheters IV Catheter Type (from Nrs): Saline Lock Urinary Cath still in place: Yes Reason Cath still needed: urinary retention Assessment/Plan Chief Complaint/Hosp Course ASSESSMENT AND PLAN: - Progressive recurrent ovarian carcinoma. Status post chemotherapy. Dr. Foy is following in hematology/oncology consultation. Dr. Johnston is following from a surgery standpoint. S/p bowel resection 04/07. Continue follow -up per general surgery recommendations. Continue TPN and lipids. - Intractable abdominal pain and nausea secondary to #1, resolved. Continue Dilaudid p.r.n. for pain and Zofran p.r.n. for nausea. - Bilateral lower extremities edema, ultrasound is negative for DVT. Continue Lovenox for deep venous thrombosis prophylaxis and Protonix for peptic ulcer disease prophylaxis. Further recommendations based on clinical course. Plan of care was discussed with Dr. Bravo. Problems: Subjective 24 Hr Interval Summary Free Text/Dictation Patient sitting in chair, continues on TPN, pain is well controlled with MUSIC WRITER, complains of bilateral lower extremities edema. Exam/Review of Systems Vital Signs Vitals Vital Signs Date Time Temp Pulse Resp B/P Pulse Ox O2 Delivery O2 Flow Rate FiO2 04/17/16 13:00 18 04/17/16 09:54 Nasal Cannula 2.0 04/17/16 08:30 98.1 75 135/81 98 Intake and Output 04/16/16 04/16/16 04/17/16 15:00 23:00 07:00 Intake Total 300 ml 1680 ml 880 ml Output Total 2110 ml 1200 ml Balance 300 ml -430 ml -320 ml Exam PHYSICAL ASSESSMENT: GENERAL: Well-developed, well-nourished female currently is awake, alert. HEENT: Head is atraumatic, normocephalic. NGT to LWS. NECK: Supple, no cervical lymphadenopathy, no thyromegaly. CHEST: Lungs clear bilaterally. There is no rhonchi, wheezes, rales noted. CARDIOVASCULAR: Normal S1, S2. No murmurs, gallops, clicks, rubs noted. ABDOMEN: Round, soft, s/p surgery with midline incision, EMERITA. SKIN: There is no rash, petechiae noted. EXTREMITIES: No edema, clubbing, cyanosis. Pulses equal bilaterally 2+. Mild edema. SKIN: There is no rash or petechiae noted. NEUROLOGICAL: The patient is awake, alert and oriented x4. Results Result Diagram: 04/17/16 0420 04/17/16 0420 Results 24 hrs Laboratory Tests Test 04/16/16 17:31 04/16/16 21:38 04/17/16 00:41 04/17/16 04:20 Bedside Glucose 116 129 132 Anion Gap 9 Basophils # 0.0 Basophils % 0.1 Blood Urea Nitrogen 17 Calcium Level 7.6 L Carbon Dioxide Level 28 Chloride Level 103 Creatinine 0.53 Eosinophils # 0.1 Eosinophils % 0.9 Glucose Level 143 Hematocrit 29.8 L Hemoglobin 9.8 L Lymphocytes # 0.8 Lymphocytes % 9.5 L Magnesium Level 1.9 Mean Corpuscular Hemoglobin 30.4 Mean Corpuscular Hemoglobin Concent 32.9 Mean Corpuscular Volume 92.5 Mean Platelet Volume 11.2 H Monocytes # 0.6 Monocytes % 6.9 Neutrophils # 6.9 Neutrophils % 82.2 H Nucleated Red Blood Cells # 0.0 Nucleated Red Blood Cells % 0.0 Phosphorus Level 3.9 Platelet Count 78 #L Potassium Level 3.4 L Red Blood Count 3.22 L Red Cell Distribution Width 16.2 H Sodium Level 137 White Blood Count 8.4 Test 04/17/16 05:18 04/17/16 08:53 04/17/16 13:09 Bedside Glucose 165 121 123 Medications Medications Current Medications Acetaminophen/ Hydrocodone Bitart ([place] (5/325)) 1 tab Q6H PRN PO MODERATE PAIN LEVEL 4-6 Last administered on 04/14/16 14:49; Admin Dose 1 TAB; Start at 18:00 Zolpidem Tartrate (Ambien) 5 mg HS PRN PO INSOMNIA Last administered on 23:48; Admin Dose 5 MG; Start 04/01/16 at 22:00 Diphenhydramine HCl (Benadryl) 25 mg Q6H PRN PO ITCHING Last administered on 06:49; Admin Dose 25 MG; Start 04/02/16 at 07:00 Al Hydrox/Mg Hydrox/Simethicone (Mag-Al Plus) 30 ml Q6H PRN PO GASTROINTESTINAL UPSET Last administered on 04/06/16 19:40; Admin Dose 30 ML; Start 04/02/16 at 17:30 Simethicone (Mylicon) 80 mg Q6 PO Last administered on 04/17/16 12:14; Admin Dose 80 MG; Start 04/02/16 at 18:00 Clonidine HCl 1 patch 1 patch Q7D TRANSDERM Last administered on 04/11/16 13:23 ; Admin Dose 1 PATCH; Start 04/04/16 at 13:15 Albumin Human (Alburx) 500 ml @ 250 mls/hr ONCE PRN IVPB U/O BELOW 30 ML/HR X 2 HR; Start 04/07/16 at 22:30 Pantoprazole (Protonix Iv) 40 mg DAILY@06 IV Last administered on 04/17/16 05: 19; Admin Dose 40 MG; Start 04/08/16 at 06:00 Hydromorphone HCl (Dilaudid MUSIC WRITER) 0.3 MG DOSE 15 ... Q4PCA IV Last administered on 04/17/16 11:30; Admin Dose 6 MG; Start 04/12/16 at 18:00 Hydralazine HCl 10 mg 10 mg Q4H PRN IV HTN Last administered on 04/16/16 08:30 ; Admin Dose 10 MG; Start 04/13/16 at 20:00 Ondansetron HCl/ Dextrose (Zofran Inj/D5W) 54 ml @ 108 mls/hr Q6H PRN IV NAUSEA AND/OR VOMITING; Start 04/15/16 at 12:30 Diagnostic Test (Pha) 1 ea 1 ea Q4 XX Last administered on 04/17/16 05:19; Admin Dose 1 EA; Start 04/15/16 at 17:00 Fat Emulsion Intravenous 250 ml @ 31.25 mls/ hr Q24H IV Last administered on 18:12; Admin Dose 31.25 MLS/HR; Start 04/15/16 at 18:00 Total Parenteral Nutrition (Tpn) 1,000 ml @ 65 mls/hr [id number] IV Last administered on 04/17/16 11:03; Admin Dose 65 MLS/HR; Start 04/16/16 at 06:01 LARRY MEJIA Apr 17, 2016 16:58
[2016-04-17] MEDS ORDERED: FUROSEMIDE 20 MG INJ IV ONE (17:00)
[2016-04-17] MEDS: FAT EMULSION 20% 250 ML IV SCH (17:08)
[2016-04-17] MEDS: ONDANSETRON INJ 8 MG in DEXTROSE 5% 50 ML IV PRN (17:27)
[2016-04-17 19:00] VITALS: BP 122/84; RESP 18
--- NOTE | 2016-04-17 21:19 | PN ---
Date/Time of Note Date/Time of Note DATE: 04/17/16 TIME: 21:13 Assessment/Plan VTE Prophylaxis VTE Prophylaxis Intervention: SCD's Lines/Catheters IV Catheter Type (from Nrs): Saline Lock Urinary Cath still in place: Yes Assessment/Plan Chief Complaint/Hosp Course Ovarian cancer with recurrence would benefit from secondary CRS even though persistent disease because the problem is her chemo was delayed 3 months postop. Informed of need to start chemo nathan postop and will call [facility] Problems: Subjective 24 Hr Interval Summary Free Text/Dictation S- Feels better less pain, -OOB more and less wound drainage O- Resp- clear CVS- NSR Abd- appropriate tenderness and incision clean ; packed Ext- NT less edema A/P- awaiting creatinine level on drainage OOB more but still awaiting bowel fct. Exam/Review of Systems Vital Signs Vitals Vital Signs Date Time Temp Pulse Resp B/P Pulse Ox O2 Delivery O2 Flow Rate FiO2 04/17/16 19:00 97.7 88 18 122/84 95 04/17/16 09:54 Nasal Cannula 2.0 Intake and Output 04/16/16 04/16/16 04/17/16 15:00 23:00 07:00 Intake Total 300 ml 1680 ml 880 ml Output Total 2110 ml 1200 ml Balance 300 ml -430 ml -320 ml Results Result Diagram: 04/17/16 0420 04/17/16 0420 Results 24 hrs Laboratory Tests Test 04/16/16 21:38 04/17/16 00:41 04/17/16 04:20 04/17/16 05:18 Bedside Glucose 129 132 165 Anion Gap 9 Basophils # 0.0 Basophils % 0.1 Blood Urea Nitrogen 17 Calcium Level 7.6 L Carbon Dioxide Level 28 Chloride Level 103 Creatinine 0.53 Eosinophils # 0.1 Eosinophils % 0.9 Glucose Level 143 Hematocrit 29.8 L Hemoglobin 9.8 L Lymphocytes # 0.8 Lymphocytes % 9.5 L Magnesium Level 1.9 Mean Corpuscular Hemoglobin 30.4 Mean Corpuscular Hemoglobin Concent 32.9 Mean Corpuscular Volume 92.5 Mean Platelet Volume 11.2 H Monocytes # 0.6 Monocytes % 6.9 Neutrophils # 6.9 Neutrophils % 82.2 H Nucleated Red Blood Cells # 0.0 Nucleated Red Blood Cells % 0.0 Phosphorus Level 3.9 Platelet Count 78 #L Potassium Level 3.4 L Red Blood Count 3.22 L Red Cell Distribution Width 16.2 H Sodium Level 137 White Blood Count 8.4 Test 04/17/16 08:53 04/17/16 13:09 04/17/16 17:10 Bedside Glucose 121 123 132 Medications Medications Current Medications Acetaminophen/ Hydrocodone Bitart ([place] (5/325)) 1 tab Q6H PRN PO MODERATE PAIN LEVEL 4-6 Last administered on 04/14/16 14:49; Admin Dose 1 TAB; Start at 18:00 Zolpidem Tartrate (Ambien) 5 mg HS PRN PO INSOMNIA Last administered on 23:48; Admin Dose 5 MG; Start 04/01/16 at 22:00 Diphenhydramine HCl (Benadryl) 25 mg Q6H PRN PO ITCHING Last administered on 06:49; Admin Dose 25 MG; Start 04/02/16 at 07:00 Al Hydrox/Mg Hydrox/Simethicone (Mag-Al Plus) 30 ml Q6H PRN PO GASTROINTESTINAL UPSET Last administered on 04/06/16 19:40; Admin Dose 30 ML; Start 04/02/16 at 17:30 Simethicone (Mylicon) 80 mg Q6 PO Last administered on 04/17/16 17:08; Admin Dose 80 MG; Start 04/02/16 at 18:00 Clonidine HCl 1 patch 1 patch Q7D TRANSDERM Last administered on 04/11/16 13:23 ; Admin Dose 1 PATCH; Start 04/04/16 at 13:15 Albumin Human (Alburx) 500 ml @ 250 mls/hr ONCE PRN IVPB U/O BELOW 30 ML/HR X 2 HR; Start 04/07/16 at 22:30 Pantoprazole (Protonix Iv) 40 mg DAILY@06 IV Last administered on 04/17/16 05: 19; Admin Dose 40 MG; Start 04/08/16 at 06:00 Hydromorphone HCl (Dilaudid MANAGING EDITOR) 0.3 MG DOSE 15 ... Q4PCA IV Last administered on 04/17/16 11:30; Admin Dose 6 MG; Start 04/12/16 at 18:00 Hydralazine HCl 10 mg 10 mg Q4H PRN IV HTN Last administered on 04/16/16 08:30 ; Admin Dose 10 MG; Start 04/13/16 at 20:00 Ondansetron HCl/ Dextrose (Zofran Inj/D5W) 54 ml @ 108 mls/hr Q6H PRN IV NAUSEA AND/OR VOMITING Last administered on 04/17/16 17:27; Admin Dose 108 MLS/ HR; Start 04/15/16 at 12:30 Diagnostic Test (Pha) 1 ea 1 ea Q4 XX Last administered on 04/17/16 05:19; Admin Dose 1 EA; Start 04/15/16 at 17:00 Fat Emulsion Intravenous 250 ml @ 31.25 mls/ hr Q24H IV Last administered on 17:08; Admin Dose 31.25 MLS/HR; Start 04/15/16 at 18:00 Total Parenteral Nutrition (Tpn) 1,000 ml @ 65 mls/hr [id number] IV Last administered on 04/17/16 11:03; Admin Dose 65 MLS/HR; Start 04/16/16 at 06:01 ANDI WADDELL MD Apr 17, 2016 21:19
[2016-04-18] MEDS: ACCU-CHEK XX SCH ×4 (01:00→20:58)
[2016-04-18] MEDS: TPN 1,000 ML IV SCH ×2 (02:26→17:58)
[2016-04-18 05:12] LABS: ADD SCAN DIFF NO
[2016-04-18 05:33] LABS: POTASSIUM 3.7 mmol/L (3.5-5.1)
[2016-04-18 05:36] LABS: CREATININE 0.53 mg/dl (0.44-1.00)
[2016-04-18 05:37] LABS: CALCIUM 7.2 mg/dl (8.4-10.2)
[2016-04-18] MEDS: FUROSEMIDE 20 MG INJ IV SCH ×2 (06:05→17:58)
[2016-04-18] MEDS: PANTOPRAZOLE 40 MG INJ IV SCH (06:05)
[2016-04-18] MEDS: HYDROmorphONE 0.2 MG/ML PCA IV SCH ×3 (06:39→19:45)
[2016-04-18 07:33] LABS: ABNORMAL IP MESSAGE 1; BASOPHILS % 0.1 % (0.0-2.0); EOSINOPHILS # 0.1 10^3/ul (0.0-0.5); EOSINOPHILS % 0.9 % (0.0-7.0); HEMATOCRIT 28.2 % (37.0-47.0); HEMOGLOBIN 9.5 g/dl (12.0-16.0); LYMPHOCYTES % 12.8 % (15.0-51.0); MEAN CORPUSCULAR HEMOGLOBIN 30.9 pg (29.0-33.0); MEAN CORPUSCULAR HGB CONC 33.7 g/dl (32.0-37.0); MEAN CORPUSCULAR VOLUME 91.9 fl (82.0-101.0); MEAN PLATELET VOLUME 12.3 fl (7.4-10.4); MONOCYTE # 0.6 10^3/ul (0.3-0.9); MONOCYTES % 7.5 % (0.0-11.0); NEUTROPHIL # 6.2 10^3/ul (1.6-7.5); NEUTROPHILS % 78.1 % (39.0-77.0); PLATELET COUNT 81 10^3/UL (140-415); RED BLOOD COUNT 3.07 10^6/ul (4.20-5.40); RED CELL DISTRIBUTION WIDTH 16.2 % (11.5-14.5)
[2016-04-18 08:11] VITALS: BP 122/80; RESP 20
--- NOTE | 2016-04-18 11:13 | PN ---
Date/Time of Note Date/Time of Note DATE: 04/18/16 TIME: 11:11 Assessment/Plan VTE Prophylaxis VTE Prophylaxis Intervention: ambulation Lines/Catheters IV [facility]from [facility] Saline Lock Urinary Cath still in place: Yes Reason Cath still needed: urinary retention Assessment/Plan Assessment/Plan 61-year-old female with stage IIIB ovarian cancer s/p surgery by Dr. Johnston in May 2015 and 6 cycles of carbo/taxol with persistently elevated CA125 (now 39.6), recently admitted to outside hospital with CT concerning for persistent disease, now admitted with 1 month of left flank pain. -Recent PET/CT 03-26-16 showed progressive disease with large volume of peripherally FDG avid loculated abdominal and pelvic ascites with increased omental caking and peritoneal nodularity noted throughout the abdomen and pelvis consistent with progressive recurrent ovarian carcinoma. Pt is now s/p optimal CRS for recurrent disease on 04/08. She was left with < 5mm of residual disease. - LE Doppler do not reveal evidence of DVT - cont post op care per surgery. pt is ambulating. continue TPN and follow surgery recommendations. - continue Zofran to 8mg IV q 6 prn nausea. nausea now under control - plan to start adjuvant chemotherapy in house when cleared by RUBBER COMPOUNDER FORMULATOR onc. plan to given 1 dose of Gemcitabine/ Cisplatin. PT is still not tolerating a po diet - patient responded well to blood transfusion ordered for drop in H/H, now at 9.5 Subjective 24 Hr Interval Summary Free Text/Dictation NG in place, family at bedside Respiratory: no complaints Cardiovascular: no complaints Exam/Review of Systems Vital Signs Vitals Vital Signs Date Time Temp Pulse Resp B/P Pulse Ox O2 Delivery O2 Flow Rate FiO2 04/18/16 08:11 97.8 81 20 122/80 98 04/17/16 19:40 Nasal Cannula 2.0 Intake and Output 04/17/16 04/17/16 04/18/16 15:00 23:00 07:00 Intake Total 370 ml 108 ml 1412 ml Output Total 1365 ml 2095 ml Balance 370 ml -1257 ml -683 ml Exam Constitutional: alert, oriented Psych: nl mood/affect Eyes: nl conjunctiva Neck: supple Respiratory: normal air movement Gastrointestinal: soft Results Result Diagram: 04/18/16 0447 04/18/167 Results 24 hrs Laboratory Tests Test 04/17/16 13:09 04/17/16 17:10 04/17/16 21:04 04/18/16 02:15 Bedside Glucose 123 132 123 132 Test 04/18/16 04:47 04/18/16 06:01 04/18/16 08:49 Anion Gap 10 Basophils # 0.0 Basophils % 0.1 Blood Urea Nitrogen 20 Calcium Level 7.2 L Carbon Dioxide Level 27 Chloride Level 101 Creatinine 0.53 Eosinophils # 0.1 Eosinophils % 0.9 Glucose Level 126 Hematocrit 28.2 L Hemoglobin 9.5 L Lymphocytes # 1.0 Lymphocytes % 12.8 L Mean Corpuscular Hemoglobin 30.9 Mean Corpuscular Hemoglobin Concent 33.7 Mean Corpuscular Volume 91.9 Mean Platelet Volume 12.3 H Monocytes # 0.6 Monocytes % 7.5 Neutrophils # 6.2 Neutrophils % 78.1 H Nucleated Red Blood Cells # 0.0 Nucleated Red Blood Cells % 0.0 Platelet Count 81 L Potassium Level 3.7 Red Blood Count 3.07 L Red Cell Distribution Width 16.2 H Sodium Level 134 L White Blood Count 8.0 Bedside Glucose 136 139 Medications Medications Current Medications Acetaminophen/ Hydrocodone Bitart ([place] (5/325)) 1 tab Q6H PRN PO MODERATE PAIN LEVEL 4-6 Last administered on 04/14/16 14:49; Admin Dose 1 TAB; Start at 18:00 Zolpidem Tartrate (Ambien) 5 mg HS PRN PO INSOMNIA Last administered on 23:48; Admin Dose 5 MG; Start 04/01/16 at 22:00 Diphenhydramine HCl (Benadryl) 25 mg Q6H PRN PO ITCHING Last administered on 06:49; Admin Dose 25 MG; Start 04/02/16 at 07:00 Al Hydrox/Mg Hydrox/Simethicone (Mag-Al Plus) 30 ml Q6H PRN PO GASTROINTESTINAL UPSET Last administered on 04/06/16 19:40; Admin Dose 30 ML; Start 04/02/16 at 17:30 Simethicone (Mylicon) 80 mg Q6 PO Last administered on 04/18/16 06:10; Admin Dose 80 MG; Start 04/02/16 at 18:00 Clonidine HCl 1 patch 1 patch Q7D TRANSDERM Last administered on 04/11/16 13:23 ; Admin Dose 1 PATCH; Start 04/04/16 at 13:15 Albumin Human (Alburx) 500 ml @ 250 mls/hr ONCE PRN IVPB U/O BELOW 30 ML/HR X 2 HR; Start 04/07/16 at 22:30 Pantoprazole (Protonix Iv) 40 mg DAILY@06 IV Last administered on 04/18/16 06: 05; Admin Dose 40 MG; Start 04/08/16 at 06:00 Hydromorphone HCl (Dilaudid INSTRUMENT CHECKER) 0.3 MG DOSE 15 ... Q4PCA IV Last administered on 04/18/16 06:39; Admin Dose 6 MG; Start 04/12/16 at 18:00 Hydralazine HCl 10 mg 10 mg Q4H PRN IV HTN Last administered on 04/16/16 08:30 ; Admin Dose 10 MG; Start 04/13/16 at 20:00 Ondansetron HCl 8 mg/Dextrose 54 ml @ 108 mls/hr Q6H PRN IV NAUSEA AND/OR VOMITING Last administered on 04/17/16 17:27; Admin Dose 108 MLS/HR; Start 04/15 at 12:30 Fat Emulsion Intravenous 250 ml @ 31.25 mls/ hr Q24H IV Last administered on 17:08; Admin Dose 31.25 MLS/HR; Start 04/15/16 at 18:00 Total Parenteral Nutrition (Tpn) 1,000 ml @ 65 mls/hr [id number] IV Last administered on 04/18/16 02:26; Admin Dose 65 MLS/HR; Start 04/16/16 at 06:01 Diagnostic Test (Pha) (Accucheck) 1 ea Q12 XX Last administered on 04/18/16 09 :06; Admin Dose 1 EA; Start 04/18/16 at 09:00 CLAIRE AC MD Apr 18, 2016 11:12
[2016-04-18] MEDS: CLONIDINE 0.2 MG/24 HR PATCH TRANSDERM SCH (12:43)
--- NOTE | 2016-04-18 17:02 | PN ---
Date/Time of Note Date/Time of Note DATE: 04/18/16 TIME: 17:01 Assessment/Plan VTE Prophylaxis VTE Prophylaxis Intervention: other Lines/Catheters IV Catheter Type (from Nrs): Peripheral IV Urinary Cath still in place: Yes Reason Cath still needed: urinary retention Assessment/Plan Assessment/Plan - Progressive recurrent ovarian carcinoma. Status post chemotherapy. Dr. Foy is following in hematology/oncology consultation. Dr. Johnston is following from a surgery standpoint. S/p bowel resection 04/07. Continue follow -up per general surgery recommendations. Continue TPN and lipids. - Intractable abdominal pain and nausea secondary to #1, resolved. Continue Dilaudid p.r.n. for pain and Zofran p.r.n. for nausea. - Bilateral lower extremities edema, ultrasound is negative for DVT. Continue Lovenox for deep venous thrombosis prophylaxis and Protonix for peptic ulcer disease prophylaxis. Further recommendations based on clinical course. Plan of care was discussed with Dr. Bravo. Subjective 24 Hr Interval Summary Eyes: no complaints ENT: no complaints Respiratory: no complaints Cardiovascular: no complaints Gastrointestinal: pain Genitourinary: no complaints Musculoskeletal: no complaints Skin: no complaints Neurologic: no complaints Endocrine: no complaints Lymphatic: no complaints Exam/Review of Systems Vital Signs Vitals Vital Signs Date Time Temp Pulse Resp B/P Pulse Ox O2 Delivery O2 Flow Rate FiO2 04/18/16 14:00 18 04/18/16 08:11 97.8 81 122/80 98 04/18/16 08:00 Nasal Cannula 2.0 Intake and Output 04/17/16 04/17/16 04/18/16 15:00 23:00 07:00 Intake Total 370 ml 108 ml 1412 ml Output Total 1365 ml 2095 ml Balance 370 ml -1257 ml -683 ml Exam Constitutional: alert, well developed Eyes: EOMI, PERRL, nl sclera ENMT: nl external ears & nose Neck: non-tender Respiratory: clear to auscultation Cardiovascular: nl pulses Gastrointestinal: soft, tender Musculoskeletal: nl extremities to inspection Extremities: normal pulses Results Result Diagram: 04/18/16 0447 04/18/16 0447 Results 24 hrs Laboratory Tests Test 04/17/16 17:10 04/17/16 21:04 04/18/16 02:15 04/18/16 04:47 Bedside Glucose 132 123 132 Anion Gap 10 Basophils # 0.0 Basophils % 0.1 Blood Urea Nitrogen 20 Calcium Level 7.2 L Carbon Dioxide Level 27 Chloride Level 101 Creatinine 0.53 Eosinophils # 0.1 Eosinophils % 0.9 Glucose Level 126 Hematocrit 28.2 L Hemoglobin 9.5 L Lymphocytes # 1.0 Lymphocytes % 12.8 L Mean Corpuscular Hemoglobin 30.9 Mean Corpuscular Hemoglobin Concent 33.7 Mean Corpuscular Volume 91.9 Mean Platelet Volume 12.3 H Monocytes # 0.6 Monocytes % 7.5 Neutrophils # 6.2 Neutrophils % 78.1 H Nucleated Red Blood Cells # 0.0 Nucleated Red Blood Cells % 0.0 Platelet Count 81 L Potassium Level 3.7 Red Blood Count 3.07 L Red Cell Distribution Width 16.2 H Sodium Level 134 L White Blood Count 8.0 Test 04/18/16 06:01 04/18/16 08:49 Bedside Glucose 136 139 Medications Medications Current Medications Acetaminophen/ Hydrocodone Bitart ([place] (5/325)) 1 tab Q6H PRN PO MODERATE PAIN LEVEL 4-6 Last administered on 04/14/16 14:49; Admin Dose 1 TAB; Start at 18:00 Zolpidem Tartrate (Ambien) 5 mg HS PRN PO INSOMNIA Last administered on 23:48; Admin Dose 5 MG; Start 04/01/16 at 22:00 Diphenhydramine HCl (Benadryl) 25 mg Q6H PRN PO ITCHING Last administered on 06:49; Admin Dose 25 MG; Start 04/02/16 at 07:00 Al Hydrox/Mg Hydrox/Simethicone (Mag-Al Plus) 30 ml Q6H PRN PO GASTROINTESTINAL UPSET Last administered on 04/06/16 19:40; Admin Dose 30 ML; Start 04/02/16 at 17:30 Simethicone (Mylicon) 80 mg Q6 PO Last administered on 04/18/16 12:27; Admin Dose 80 MG; Start 04/02/16 at 18:00 Clonidine HCl 1 patch 1 patch Q7D TRANSDERM Last administered on 04/18/16 12: 43; Admin Dose 1 PATCH; Start 04/04/16 at 13:15 Albumin Human (Alburx) 500 ml @ 250 mls/hr ONCE PRN IVPB U/O BELOW 30 ML/HR X 2 HR; Start 04/07/16 at 22:30 Pantoprazole (Protonix Iv) 40 mg DAILY@06 IV Last administered on 04/18/16 06: 05; Admin Dose 40 MG; Start 04/08/16 at 06:00 Hydromorphone HCl (Dilaudid PICKLE MAKER) 0.3 MG DOSE 15 ... Q4PCA IV Last administered on 04/18/16 13:40; Admin Dose 6 MG; Start 04/12/16 at 18:00 Hydralazine HCl 10 mg 10 mg Q4H PRN IV HTN Last administered on 04/16/16 08:30 ; Admin Dose 10 MG; Start 04/13/16 at 20:00 Ondansetron HCl 8 mg/Dextrose 54 ml @ 108 mls/hr Q6H PRN IV NAUSEA AND/OR VOMITING Last administered on 04/17/16 17:27; Admin Dose 108 MLS/HR; Start 04/15 at 12:30 Fat Emulsion Intravenous 250 ml @ 31.25 mls/ hr Q24H IV Last administered on 17:08; Admin Dose 31.25 MLS/HR; Start 04/15/16 at 18:00 Total Parenteral Nutrition (Tpn) 1,000 ml @ 65 mls/hr [id number] IV Last administered on 04/18/16 02:26; Admin Dose 65 MLS/HR; Start 04/16/16 at 06:01 Diagnostic Test (Pha) (Accucheck) 1 ea Q12 XX Last administered on 04/18/16 09 :06; Admin Dose 1 EA; Start 04/18/16 at 09:00 BLAKE BRUMFIELD Apr 18, 2016 17:02
[2016-04-18] MEDS: FAT EMULSION 20% 250 ML IV SCH (17:58)
[2016-04-18 20:00] VITALS: BP 129/80; RESP 20
--- NOTE | 2016-04-18 21:19 | PN ---
Date/Time of Note Date/Time of Note DATE: 04/18/16 TIME: 21:13 Assessment/Plan VTE Prophylaxis VTE Prophylaxis Intervention: LMWH Lines/Catheters IV [facility] Type (from [facility]): Peripheral IV Urinary Cath still in place: Yes Assessment/Plan Chief Complaint/Hosp Course Ovarian cancer with recurrence would benefit from secondary CRS even though persistent disease because the problem is her chemo was delayed 3 months postop. Informed of need to start chemo nathan postop and will call [facility] Problems: Assessment/Plan A- ongoing delay in bowel fct Wound necrosis with some fascial opening- probably accounting for ascitic leakage P- Will add Reglan Wound slightly further opened with stables removed and dangling prolene removed. Minimal fascial separation noted. Wound packed deeper with Kerlex. Will repeat daily and determine whether needs additional operation. Drainage may possibly decrease or stop. Subjective 24 Hr Interval Summary Free Text/Dictation S- OOB occasionally and no flatus, ongoing drainage O- Resp- clear CVS- NSR Abd- appropriate tenderness and incision not adequately packed with necrotic material Ext- NT less edema A- ongoing delay in bowel fct Wound necrosis with some fascial opening- probably accounting for ascitic leakage P- Will add Reglan Wound slightly further opened with stables removed and dangling prolene removed. Minimal fascial separation noted. Wound packed deeper with Kerlex. Will repeat daily and determine whether needs additional operation. Drainage may possibly decrease or stop. Exam/Review of Systems Vital Signs Vitals Vital Signs Date Time Temp Pulse Resp B/P Pulse Ox O2 Delivery O2 Flow Rate FiO2 04/18/16 20:00 98.2 91 20 129/80 94 04/18/16 08:00 Nasal Cannula 2.0 Intake and Output 04/17/16 04/17/16 04/18/16 15:00 23:00 07:00 Intake Total 370 ml 108 ml 1412 ml Output Total 1365 ml 2095 ml Balance 370 ml -1257 ml -683 ml Results Result Diagram: 04/18/16 0447 04/18/16 0447 Results 24 hrs Laboratory Tests Test 04/18/16 02:15 04/18/16 04:47 04/18/16 06:01 04/18/16 08:49 Bedside Glucose 132 136 139 Anion Gap 10 Basophils # 0.0 Basophils % 0.1 Blood Urea Nitrogen 20 Calcium Level 7.2 L Carbon Dioxide Level 27 Chloride Level 101 Creatinine 0.53 Eosinophils # 0.1 Eosinophils % 0.9 Glucose Level 126 Hematocrit 28.2 L Hemoglobin 9.5 L Lymphocytes # 1.0 Lymphocytes % 12.8 L Mean Corpuscular Hemoglobin 30.9 Mean Corpuscular Hemoglobin Concent 33.7 Mean Corpuscular Volume 91.9 Mean Platelet Volume 12.3 H Monocytes # 0.6 Monocytes % 7.5 Neutrophils # 6.2 Neutrophils % 78.1 H Nucleated Red Blood Cells # 0.0 Nucleated Red Blood Cells % 0.0 Platelet Count 81 L Potassium Level 3.7 Red Blood Count 3.07 L Red Cell Distribution Width 16.2 H Sodium Level 134 L White Blood Count 8.0 Test 04/18/16 20:52 Bedside Glucose 124 Medications Medications Current Medications Acetaminophen/ Hydrocodone Bitart ([place] (5/325)) 1 tab Q6H PRN PO MODERATE PAIN LEVEL 4-6 Last administered on 04/14/16 14:49; Admin Dose 1 TAB; Start at 18:00 Zolpidem Tartrate (Ambien) 5 mg HS PRN PO INSOMNIA Last administered on 23:48; Admin Dose 5 MG; Start 04/01/16 at 22:00 Diphenhydramine HCl (Benadryl) 25 mg Q6H PRN PO ITCHING Last administered on 06:49; Admin Dose 25 MG; Start 04/02/16 at 07:00 Al Hydrox/Mg Hydrox/Simethicone (Mag-Al Plus) 30 ml Q6H PRN PO GASTROINTESTINAL UPSET Last administered on 04/06/16 19:40; Admin Dose 30 ML; Start 04/02/16 at 17:30 Simethicone (Mylicon) 80 mg Q6 PO Last administered on 04/18/16 17:57; Admin Dose 80 MG; Start 04/02/16 at 18:00 Clonidine HCl 1 patch 1 patch Q7D TRANSDERM Last administered on 04/18/16 12: 43; Admin Dose 1 PATCH; Start 04/04/16 at 13:15 Albumin Human (Alburx) 500 ml @ 250 mls/hr ONCE PRN IVPB U/O BELOW 30 ML/HR X 2 HR; Start 04/07/16 at 22:30 Pantoprazole (Protonix Iv) 40 mg DAILY@06 IV Last administered on 04/18/16 06: 05; Admin Dose 40 MG; Start 04/08/16 at 06:00 Hydromorphone HCl (Dilaudid QUALITY CONTROL ENGINEERING TECHNICIAN) 0.3 MG DOSE 15 ... Q4PCA IV Last administered on 04/18/16 19:45; Admin Dose 6 MG; Start 04/12/16 at 18:00 Hydralazine HCl 10 mg 10 mg Q4H PRN IV HTN Last administered on 04/16/16 08:30 ; Admin Dose 10 MG; Start 04/13/16 at 20:00 Ondansetron HCl 8 mg/Dextrose 54 ml @ 108 mls/hr Q6H PRN IV NAUSEA AND/OR VOMITING Last administered on 04/17/16 17:27; Admin Dose 108 MLS/HR; Start 04/15 at 12:30 Fat Emulsion Intravenous 250 ml @ 31.25 mls/ hr Q24H IV Last administered on 17:58; Admin Dose 31.25 MLS/HR; Start 04/15/16 at 18:00 Total Parenteral Nutrition (Tpn) 1,000 ml @ 65 mls/hr [id number] IV Last administered on 04/18/16 17:58; Admin Dose 65 MLS/HR; Start 04/16/16 at 06:01 Diagnostic Test (Pha) (Accucheck) 1 ea Q12 XX Last administered on 04/18/16 20 :58; Admin Dose 1 EA; Start 04/18/16 at 09:00 ANDI WADDELL MD Apr 18, 2016 21:19
[2016-04-18] MEDS: METOCLOPRAMIDE 10 MG INJ IV SCH (22:55)
[2016-04-19] MEDS: HYDROmorphONE 0.2 MG/ML PCA IV SCH ×4 (03:03→23:56)
[2016-04-19 05:04] LABS: ADD SCAN DIFF NO
[2016-04-19 05:16] LABS: ABNORMAL IP MESSAGE 1; BASOPHILS % 0.3 % (0.0-2.0); EOSINOPHILS # 0.1 10^3/ul (0.0-0.5); EOSINOPHILS % 1.6 % (0.0-7.0); HEMATOCRIT 27.6 % (37.0-47.0); HEMOGLOBIN 9.1 g/dl (12.0-16.0); LYMPHOCYTES % 13.7 % (15.0-51.0); MEAN CORPUSCULAR HEMOGLOBIN 30.7 pg (29.0-33.0); MEAN CORPUSCULAR VOLUME 93.2 fl (82.0-101.0); MEAN PLATELET VOLUME 12.2 fl (7.4-10.4); MONOCYTE # 0.6 10^3/ul (0.3-0.9); MONOCYTES % 8.1 % (0.0-11.0); NEUTROPHIL # 5.7 10^3/ul (1.6-7.5); NEUTROPHILS % 75.9 % (39.0-77.0); PLATELET COUNT 93 10^3/UL (140-415); RED BLOOD COUNT 2.96 10^6/ul (4.20-5.40); RED CELL DISTRIBUTION WIDTH 16.3 % (11.5-14.5); WHITE BLOOD COUNT 7.5 10^3/ul (4.8-10.8)
[2016-04-19 05:45] LABS: POTASSIUM 3.2 mmol/L (3.5-5.1)
[2016-04-19 05:48] LABS: CREATININE 0.58 mg/dl (0.44-1.00)
[2016-04-19 05:49] LABS: CALCIUM 7.5 mg/dl (8.4-10.2); MAGNESIUM 1.9 mg/dl (1.7-2.5); PHOSPHORUS 3.7 mg/dl (2.5-4.9)
[2016-04-19] MEDS: METOCLOPRAMIDE 10 MG INJ IV SCH ×3 (06:42→21:14)
[2016-04-19] MEDS: PANTOPRAZOLE 40 MG INJ IV SCH (06:42)
[2016-04-19] MEDS: FUROSEMIDE 20 MG INJ IV SCH ×2 (06:45→17:59)
[2016-04-19 07:47] VITALS: BP 134/82; RESP 18
[2016-04-19] MEDS: ACCU-CHEK XX SCH ×2 (09:08→21:14)
[2016-04-19] MEDS: TPN 1,000 ML IV SCH (12:54)
--- NOTE | 2016-04-19 15:33 | PN ---
Date/Time of Note Date/Time of Note DATE: 04/19/16 TIME: 15:31 Assessment/Plan VTE Prophylaxis VTE Prophylaxis Intervention: LMWH Lines/Catheters IV Catheter Type (from Nrs): Peripheral IV Urinary Cath still in place: Yes Reason Cath still needed: urinary retention Assessment/Plan Assessment/Plan - Progressive recurrent ovarian carcinoma. Status post chemotherapy. Dr. Foy is following in hematology/oncology consultation. Dr. Johnston is following from a surgery standpoint. - S/p bowel resection 04/07. - per general surgery recommendations. NGT out today - Continue TPN and lipids. - Intractable abdominal pain and nausea secondary to #1, resolved. Continue Dilaudid p.r.n. for pain and Zofran p.r.n. for nausea. - Bilateral lower extremities edema, ultrasound is negative for DVT. Continue Lovenox for deep venous thrombosis prophylaxis and Protonix for peptic ulcer disease prophylaxis. Further recommendations based on clinical course. Plan of care was discussed with Dr. Bravo. Subjective 24 Hr Interval Summary Eyes: no complaints ENT: no complaints Respiratory: no complaints Cardiovascular: no complaints Gastrointestinal: pain Genitourinary: no complaints Musculoskeletal: no complaints Skin: other Neurologic: no complaints Endocrine: no complaints Lymphatic: no complaints Exam/Review of Systems Vital Signs Vitals Vital Signs Date Time Temp Pulse Resp B/P Pulse Ox O2 Delivery O2 Flow Rate FiO2 04/19/16 12:00 18 04/19/16 07:47 98.6 96 134/82 94 04/18/16 08:00 Nasal Cannula 2.0 Intake and Output 04/18/16 04/18/16 04/19/16 15:00 23:00 07:00 Intake Total 950 ml 780 ml Output Total 985 ml Balance -35 ml 780 ml Exam Constitutional: alert, oriented, well developed Head: atraumatic Eyes: EOMI, nl sclera ENMT: nl external ears & nose Neck: non-tender Cardiovascular: nl pulses Gastrointestinal: soft, tender Musculoskeletal: nl extremities to inspection Extremities: normal pulses Neurological: nl mental status, nl speech Lymph: nontender Results Result Diagram: 04/19/1643904/19/16439 Results 24 hrs Laboratory Tests Test 04/18/16 20:52 04/19/16 04:40 04/19/16 09:05 04/19/16 11:03 Bedside Glucose 124 171 Anion Gap 10 Basophils # 0.0 Basophils % 0.3 Blood Urea Nitrogen 20 Calcium Level 7.5 L Carbon Dioxide Level 28 Chloride Level 101 Creatinine 0.58 Eosinophils # 0.1 Eosinophils % 1.6 Glucose Level 146 Hematocrit 27.6 L Hemoglobin 9.1 L Lymphocytes # 1.0 Lymphocytes % 13.7 L Magnesium Level 1.9 Mean Corpuscular Hemoglobin 30.7 Mean Corpuscular Hemoglobin Concent 33.0 Mean Corpuscular Volume 93.2 Mean Platelet Volume 12.2 H Monocytes # 0.6 Monocytes % 8.1 Neutrophils # 5.7 Neutrophils % 75.9 Nucleated Red Blood Cells # 0.0 Nucleated Red Blood Cells % 0.0 Phosphorus Level 3.7 Platelet Count 93 L Potassium Level 3.2 L Red Blood Count 2.96 L Red Cell Distribution Width 16.3 H Sodium Level 136 White Blood Count 7.5 Lab Scanned Report REFERENCE LAB Medications Medications Current Medications Acetaminophen/ Hydrocodone Bitart ([place] (5/325)) 1 tab Q6H PRN PO MODERATE PAIN LEVEL 4-6 Last administered on 04/14/16 14:49; Admin Dose 1 TAB; Start at 18:00 Zolpidem Tartrate (Ambien) 5 mg HS PRN PO INSOMNIA Last administered on 23:48; Admin Dose 5 MG; Start 04/01/16 at 22:00 Diphenhydramine HCl (Benadryl) 25 mg Q6H PRN PO ITCHING Last administered on 06:49; Admin Dose 25 MG; Start 04/02/16 at 07:00 Al Hydrox/Mg Hydrox/Simethicone (Mag-Al Plus) 30 ml Q6H PRN PO GASTROINTESTINAL UPSET Last administered on 04/06/16 19:40; Admin Dose 30 ML; Start 04/02/16 at 17:30 Simethicone (Mylicon) 80 mg Q6 PO Last administered on 04/19/16 12:54; Admin Dose 80 MG; Start 04/02/16 at 18:00 Clonidine HCl 1 patch 1 patch Q7D TRANSDERM Last administered on 04/18/16 12: 43; Admin Dose 1 PATCH; Start 04/04/16 at 13:15 Albumin Human (Alburx) 500 ml @ 250 mls/hr ONCE PRN IVPB U/O BELOW 30 ML/HR X 2 HR; Start 04/07/16 at 22:30 Pantoprazole (Protonix Iv) 40 mg DAILY@06 IV Last administered on 04/19/16 06: 42; Admin Dose 40 MG; Start 04/08/16 at 06:00 Hydromorphone HCl (Dilaudid TUBING DRIER) 0.3 MG DOSE 15 ... Q4PCA IV Last administered on 04/19/16 11:23; Admin Dose 6 MG; Start 04/12/16 at 18:00 Hydralazine HCl 10 mg 10 mg Q4H PRN IV HTN Last administered on 04/16/16 08:30 ; Admin Dose 10 MG; Start 04/13/16 at 20:00 Ondansetron HCl 8 mg/Dextrose 54 ml @ 108 mls/hr Q6H PRN IV NAUSEA AND/OR VOMITING Last administered on 04/17/16 17:27; Admin Dose 108 MLS/HR; Start 04/15 at 12:30 Fat Emulsion Intravenous 250 ml @ 31.25 mls/ hr Q24H IV Last administered on 17:58; Admin Dose 31.25 MLS/HR; Start 04/15/16 at 18:00 Total Parenteral Nutrition (Tpn) 1,000 ml @ 65 mls/hr [id number] IV Last administered on 04/19/16 12:54; Admin Dose 65 MLS/HR; Start 04/16/16 at 06:01 Diagnostic Test (Pha) (Accucheck) 1 ea Q12 XX Last administered on 04/19/16 09 :08; Admin Dose 1 EA; Start 04/18/16 at 09:00 Metoclopramide HCl (Reglan) 10 mg Q8 IV Last administered on 04/19/16 13:54; Admin Dose 10 MG; Start 04/18/16 at 22:00 BLAKE BRUMFIELD Apr 19, 2016 15:33
[2016-04-19] MEDS: FAT EMULSION 20% 250 ML IV SCH (17:59)
[2016-04-19 19:47] VITALS: BP 123/80; RESP 16
[2016-04-20] MEDS: TPN 1,000 ML IV SCH ×3 (02:25→21:12)
[2016-04-20] MEDS: METOCLOPRAMIDE 10 MG INJ IV SCH ×3 (05:32→22:15)
[2016-04-20] MEDS: FUROSEMIDE 20 MG INJ IV SCH ×2 (05:32→18:15)
[2016-04-20] MEDS: PANTOPRAZOLE 40 MG INJ IV SCH (05:32)
[2016-04-20 06:01] LABS: ADD SCAN DIFF NO
[2016-04-20 06:17] LABS: ABNORMAL IP MESSAGE 1; BASOPHILS % 0.3 % (0.0-2.0); EOSINOPHILS # 0.1 10^3/ul (0.0-0.5); EOSINOPHILS % 1.2 % (0.0-7.0); HEMATOCRIT 24.4 % (37.0-47.0); LYMPHOCYTES # 1.2 10^3/ul (0.8-2.9); LYMPHOCYTES % 17.1 % (15.0-51.0); MEAN CORPUSCULAR HEMOGLOBIN 30.5 pg (29.0-33.0); MEAN CORPUSCULAR HGB CONC 32.8 g/dl (32.0-37.0); MEAN CORPUSCULAR VOLUME 93.1 fl (82.0-101.0); MEAN PLATELET VOLUME 12.2 fl (7.4-10.4); MONOCYTE # 0.7 10^3/ul (0.3-0.9); MONOCYTES % 9.5 % (0.0-11.0); NEUTROPHIL # 4.9 10^3/ul (1.6-7.5); NEUTROPHILS % 71.5 % (39.0-77.0); PLATELET COUNT 92 10^3/UL (140-415); RED BLOOD COUNT 2.62 10^6/ul (4.20-5.40); RED CELL DISTRIBUTION WIDTH 16.3 % (11.5-14.5); WHITE BLOOD COUNT 6.9 10^3/ul (4.8-10.8)
[2016-04-20 06:23] LABS: POTASSIUM 3.4 mmol/L (3.5-5.1)
[2016-04-20 06:25] LABS: CREATININE 0.58 mg/dl (0.44-1.00)
[2016-04-20 06:26] LABS: CALCIUM 7.5 mg/dl (8.4-10.2)
[2016-04-20 07:39] VITALS: BP 121/82; RESP 16
[2016-04-20] MEDS: HYDROmorphONE 0.2 MG/ML PCA IV SCH ×3 (08:47→21:31)
[2016-04-20] MEDS: ACCU-CHEK XX SCH ×2 (09:00→21:11)
--- NOTE | 2016-04-20 12:01 | CONS ---
Date/Time of Note Date/Time of Note DATE: 04/20/16 TIME: 11:50 Assessment/Plan Assessment/Plan Chief Complaint/Hosp Course 61-year-old female with stage IIIB ovarian cancer s/p surgery by Dr. Johnston in May 2015 and 6 cycles of carbo/taxol with persistently elevated CA125 (now 39.6), recently admitted to outside hospital with CT concerning for persistent disease, now admitted with 1 month of left flank pain. Recent PET/ CT 03-26-16 showed progressive disease with large volume of peripherally FDG avid loculated abdominal and pelvic ascites with increased omental caking and peritoneal nodularity noted throughout the abdomen and pelvis consistent with progressive recurrent ovarian carcinoma. Pt is now s/p optimal CRS for recurrent disease on 04/08. She was left with < 5mm of residual disease. She now has increased drainage from the wound site and the wound is open -appreciate Dr. Dave's daily wound care. wound is open and draining. - Levaquin 750mg IB q 24 hours + Flagyl 500mg q 8 hours ordered in case of an underlying infection - LE Doppler do not reveal evidence of DVT - cont post op care per surgery. pt is ambulating. continue TPN w lipids - continue Zofran to 8mg IV q 6 prn nausea. nausea now under control - thrombocytopenia and anemia are likely secondary to post op blood loss. her cancer is also contributing to her anemia. Platelets are coming up. will consider blood transfusion tomorrow if Hg< 8 - continue lasix - plan to start adjuvant chemotherapy in house when cleared by PARACHUTIST/COMBATANT DIVER QUALIFIED onc. plan to give 1 dose of Gemcitabine/ Cisplatin. PT is still not tolerating a po diet Approximately 40 min were spent at patient's bedside and in coordination of her care Problems: Consultation Date/Type/Reason Admit Date/Time Apr 02, 2016 at 10:07 Initial Consult Date 04/02/16 Type of Consultation: Hematology/Oncology Reason for Consultation recurrent ovarian cancer Referring Provider: BRIAN ZAZUETA MD 24 HR Interval Summary Free Text/Dictation continues to drain from incision site. santos and wound care are being done daily by Dr. Dave. continues on TPN and lipids. 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 Exam/Review of Systems Vital Signs Vitals Vital Signs Date Time Temp Pulse Resp B/P Pulse Ox O2 Delivery O2 Flow Rate FiO2 04/20/16 07:39 98.2 83 16 121/82 98 04/18/16 08:00 Nasal Cannula 2.0 Intake and Output 04/19/16 04/19/16 04/20/16 14:59 22:59 06:59 Intake Total 780 ml 325 ml 250 ml Output Total 1560 ml 1200 ml Balance 780 ml -1235 ml -950 ml Exam Constitutional: alert Psych: anxiety, depression Head: normocephalic Eyes: nl conjunctiva ENMT: nl external ears & nose Neck: non-tender, supple Respiratory: clear to auscultation, normal air movement Cardiovascular: regular rate and rhythm Gastrointestinal: other (EMERITA jael with serosanguanous drainage), surgical scars , tender Musculoskeletal: nl extremities to inspection Results Result Diagram: 04/20/1644704/20/16447 Results 24 hrs Laboratory Tests Test 04/19/16 21:13 04/20/16 04:48 04/20/16 08:27 Bedside Glucose 134 151 Anion Gap 9 Basophils # 0.0 Basophils % 0.3 Blood Urea Nitrogen 19 Calcium Level 7.5 L Carbon Dioxide Level 28 Chloride Level 103 Creatinine 0.58 Eosinophils # 0.1 Eosinophils % 1.2 Glucose Level 148 Hematocrit 24.4 L Hemoglobin 8.0 L Lymphocytes # 1.2 Lymphocytes % 17.1 Mean Corpuscular Hemoglobin 30.5 Mean Corpuscular Hemoglobin Concent 32.8 Mean Corpuscular Volume 93.1 Mean Platelet Volume 12.2 H Monocytes # 0.7 Monocytes % 9.5 Neutrophils # 4.9 Neutrophils % 71.5 Nucleated Red Blood Cells # 0.0 Nucleated Red Blood Cells % 0.0 Platelet Count 92 L Potassium Level 3.4 L Red Blood Count 2.62 L Red Cell Distribution Width 16.3 H Sodium Level 137 White Blood Count 6.9 Medications Medications Current Medications Acetaminophen/ Hydrocodone Bitart ([place] (5/325)) 1 tab Q6H PRN PO MODERATE PAIN LEVEL 4-6 Last administered on 04/14/16 14:49; Admin Dose 1 TAB; Start at 18:00 Zolpidem Tartrate (Ambien) 5 mg HS PRN PO INSOMNIA Last administered on 23:48; Admin Dose 5 MG; Start 04/01/16 at 22:00 Diphenhydramine HCl (Benadryl) 25 mg Q6H PRN PO ITCHING Last administered on 06:49; Admin Dose 25 MG; Start 04/02/16 at 07:00 Al Hydrox/Mg Hydrox/Simethicone (Mag-Al Plus) 30 ml Q6H PRN PO GASTROINTESTINAL UPSET Last administered on 04/06/16 19:40; Admin Dose 30 ML; Start 04/02/16 at 17:30 Simethicone (Mylicon) 80 mg Q6 PO Last administered on 04/20/16 05:32; Admin Dose 80 MG; Start 04/02/16 at 18:00 Clonidine HCl 1 patch 1 patch Q7D TRANSDERM Last administered on 04/18/16 12: 43; Admin Dose 1 PATCH; Start 04/04/16 at 13:15 Albumin Human (Alburx) 500 ml @ 250 mls/hr ONCE PRN IVPB U/O BELOW 30 ML/HR X 2 HR; Start 04/07/16 at 22:30 Pantoprazole (Protonix Iv) 40 mg DAILY@06 IV Last administered on 04/20/16 05: 32; Admin Dose 40 MG; Start 04/08/16 at 06:00 Hydromorphone HCl (Dilaudid FLOOR SUPERVISOR) 0.3 MG DOSE 15 ... Q4PCA IV Last administered on 04/20/16 08:47; Admin Dose 6 MG; Start 04/12/16 at 18:00 Hydralazine HCl 10 mg 10 mg Q4H PRN IV HTN Last administered on 04/16/16 08:30 ; Admin Dose 10 MG; Start 04/13/16 at 20:00 Ondansetron HCl 8 mg/Dextrose 54 ml @ 108 mls/hr Q6H PRN IV NAUSEA AND/OR VOMITING Last administered on 04/17/16 17:27; Admin Dose 108 MLS/HR; Start 04/15 at 12:30 Fat Emulsion Intravenous 250 ml @ 31.25 mls/ hr Q24H IV Last administered on 17:59; Admin Dose 31.25 MLS/HR; Start 04/15/16 at 18:00 Total Parenteral Nutrition (Tpn) 1,000 ml @ 65 mls/hr [id number] IV Last administered on 04/20/16 04:30; Admin Dose 65 MLS/HR; Start 04/16/16 at 06:01 Diagnostic Test (Pha) (Accucheck) 1 ea Q12 XX Last administered on 04/20/16 09 :00; Admin Dose 1 EA; Start 04/18/16 at 09:00 Metoclopramide HCl (Reglan) 10 mg Q8 IV Last administered on 04/20/16 05:32; Admin Dose 10 MG; Start 04/18/16 at 22:00 DEMETRA COLUNGA M.D. Apr 20, 2016 12:00
[2016-04-20] MEDS: metroNIDAZOLE 500 MG/NS (PMX) 100 ML IVPB SCH ×2 (13:11→22:15)
[2016-04-20] MEDS: LEVOFLOXACIN 750MG/D5W (PMX) 150 ML IVPB SCH (14:54)
--- NOTE | 2016-04-20 14:54 | PN ---
Date/Time of Note Date/Time of Note DATE: 04/20/16 TIME: 14:36 Assessment/Plan VTE Prophylaxis VTE Prophylaxis Intervention: SCD's Lines/Catheters IV Catheter Type (from [facility] porth -a -cath Urinary Cath still in place: Yes Reason Cath still needed: urinary retention Assessment/Plan Chief Complaint/Hosp Course ASSESSMENT AND PLAN: - Progressive recurrent ovarian carcinoma. Status post chemotherapy. Dr. Foy is following in hematology/oncology consultation. Dr. Johnston is following from a surgery standpoint. S/p bowel resection 04/07. Continue follow -up per general surgery recommendations. Continue TPN and lipids. Patient has significant amount of drainage from incision started on Levaquin and Flagyl. - Intractable abdominal pain and nausea secondary to #1, resolved. Continue Dilaudid p.r.n. for pain and Zofran p.r.n. for nausea. - Bilateral lower extremities edema, ultrasound is negative for DVT, continue Lasix, monitor electrolytes. Continue Lovenox for deep venous thrombosis prophylaxis and Protonix for peptic ulcer disease prophylaxis. Further recommendations based on clinical course. Plan of care was discussed with Dr. Bravo. Problems: Subjective 24 Hr Interval Summary Free Text/Dictation Patient denies any fever, pain is well controlled on morphine VENEER LAYER, per RN patient has significant drainage from the incision/surgical incision site and EMERITA , patient started on antibiotics, patient continues to have bilateral lower extremities edema, continues on TPN and lipids. Exam/Review of Systems Vital Signs Vitals Vital Signs Date Time Temp Pulse Resp B/P Pulse Ox O2 Delivery O2 Flow Rate FiO2 04/20/16 07:39 98.2 83 16 121/82 98 04/18/16 08:00 Nasal Cannula 2.0 Intake and Output 04/19/16 04/19/16 04/20/16 15:00 23:00 07:00 Intake Total 780 ml 325 ml 250 ml Output Total 1560 ml 1200 ml Balance 780 ml -1235 ml -950 ml Exam PHYSICAL ASSESSMENT: GENERAL: Well-developed, well-nourished female currently is awake, alert. HEENT: Head is atraumatic, normocephalic. NGT to LWS. NECK: Supple, no cervical lymphadenopathy, no thyromegaly. CHEST: Lungs clear bilaterally. There is no rhonchi, wheezes, rales noted. CARDIOVASCULAR: Normal S1, S2. No murmurs, gallops, clicks, rubs noted. ABDOMEN: Round, soft, s/p surgery with midline incision, EMERITA. SKIN: There is no rash, petechiae noted. EXTREMITIES: No edema, clubbing, cyanosis. Pulses equal bilaterally 2+. Mild edema. SKIN: There is no rash or petechiae noted. NEUROLOGICAL: The patient is awake, alert and oriented x4. Results Result Diagram: 04/20/16 0448 04/20/16 0448 Results 24 hrs Laboratory Tests Test 04/19/16 21:13 04/20/16 04:48 04/20/16 08:27 Bedside Glucose 134 151 Anion Gap 9 Basophils # 0.0 Basophils % 0.3 Blood Urea Nitrogen 19 Calcium Level 7.5 L Carbon Dioxide Level 28 Chloride Level 103 Creatinine 0.58 Eosinophils # 0.1 Eosinophils % 1.2 Glucose Level 148 Hematocrit 24.4 L Hemoglobin 8.0 L Lymphocytes # 1.2 Lymphocytes % 17.1 Mean Corpuscular Hemoglobin 30.5 Mean Corpuscular Hemoglobin Concent 32.8 Mean Corpuscular Volume 93.1 Mean Platelet Volume 12.2 H Monocytes # 0.7 Monocytes % 9.5 Neutrophils # 4.9 Neutrophils % 71.5 Nucleated Red Blood Cells # 0.0 Nucleated Red Blood Cells % 0.0 Platelet Count 92 L Potassium Level 3.4 L Red Blood Count 2.62 L Red Cell Distribution Width 16.3 H Sodium Level 137 White Blood Count 6.9 Medications Medications Current Medications Acetaminophen/ Hydrocodone Bitart ([place] (5/325)) 1 tab Q6H PRN PO MODERATE PAIN LEVEL 4-6 Last administered on 04/14/16 14:49; Admin Dose 1 TAB; Start at 18:00 Zolpidem Tartrate (Ambien) 5 mg HS PRN PO INSOMNIA Last administered on 23:48; Admin Dose 5 MG; Start 04/01/16 at 22:00 Diphenhydramine HCl (Benadryl) 25 mg Q6H PRN PO ITCHING Last administered on 06:49; Admin Dose 25 MG; Start 04/02/16 at 07:00 Al Hydrox/Mg Hydrox/Simethicone (Mag-Al Plus) 30 ml Q6H PRN PO GASTROINTESTINAL UPSET Last administered on 04/06/16 19:40; Admin Dose 30 ML; Start 04/02/16 at 17:30 Simethicone (Mylicon) 80 mg Q6 PO Last administered on 04/20/16 13:07; Admin Dose 80 MG; Start 04/02/16 at 18:00 Clonidine HCl 1 patch 1 patch Q7D TRANSDERM Last administered on 04/18/16 12: 43; Admin Dose 1 PATCH; Start 04/04/16 at 13:15 Albumin Human (Alburx) 500 ml @ 250 mls/hr ONCE PRN IVPB U/O BELOW 30 ML/HR X 2 HR; Start 04/07/16 at 22:30 Pantoprazole (Protonix Iv) 40 mg DAILY@06 IV Last administered on 04/20/16 05: 32; Admin Dose 40 MG; Start 04/08/16 at 06:00 Hydromorphone HCl (Dilaudid VENEER LAYER) 0.3 MG DOSE 15 ... Q4PCA IV Last administered on 04/20/16 08:47; Admin Dose 6 MG; Start 04/12/16 at 18:00 Hydralazine HCl 10 mg 10 mg Q4H PRN IV HTN Last administered on 04/16/16 08:30 ; Admin Dose 10 MG; Start 04/13/16 at 20:00 Ondansetron HCl 8 mg/Dextrose 54 ml @ 108 mls/hr Q6H PRN IV NAUSEA AND/OR VOMITING Last administered on 04/17/16 17:27; Admin Dose 108 MLS/HR; Start 04/15 at 12:30 Fat Emulsion Intravenous 250 ml @ 31.25 mls/ hr Q24H IV Last administered on 17:59; Admin Dose 31.25 MLS/HR; Start 04/15/16 at 18:00 Total Parenteral Nutrition (Tpn) 1,000 ml @ 65 mls/hr [id number] IV Last administered on 04/20/16 04:30; Admin Dose 65 MLS/HR; Start 04/16/16 at 06:01 Diagnostic Test (Pha) (Accucheck) 1 ea Q12 XX Last administered on 04/20/16 09 :00; Admin Dose 1 EA; Start 04/18/16 at 09:00 Metoclopramide HCl 10 mg 10 mg Q8 IV Last administered on 04/20/16 13:10; Admin Dose 10 MG; Start 04/18/16 at 22:00 Levofloxacin/ Dextrose 150 ml @ 100 mls/hr Q24H IVPB ; Start 04/20/16 at 14:00 Metronidazole (Flagyl 500 Mg (Pmx)) 100 ml @ 100 mls/hr Q8 IVPB Last administered on 04/20/16 13:11; Admin Dose 100 MLS/HR; Start 04/20/16 at 13:00 LARRY MEJIA Apr 20, 2016 14:46
[2016-04-20] MEDS: FAT EMULSION 20% 250 ML IV SCH (18:15)
[2016-04-20 19:25] VITALS: BP 130/92; RESP 18
[2016-04-20] MEDS ORDERED: LIDOCAINE 1% (MPF) 30 ML INJ INJ STA (20:24)
--- NOTE | 2016-04-20 23:19 | PN ---
Date/Time of Note Date/Time of Note DATE: 04/20/16 TIME: 23:17 Assessment/Plan VTE Prophylaxis VTE Prophylaxis Intervention: SCD's, other Lines/Catheters IV Catheter Type (from [facility]): porth -a -cath Urinary Cath still in place: Yes Assessment/Plan Chief Complaint/Hosp Course Ovarian cancer with recurrence would benefit from secondary CRS even though persistent disease because the problem is her chemo was delayed 3 months postop. Informed of need to start chemo nathan postop and will call [facility] Problems: Subjective 24 Hr Interval Summary Free Text/Dictation S- OOB occasionally and no flatus, minimal drainage and priscilla NGT out O- Resp- clear CVS- NSR Abd- appropriate tenderness and incision not adequately packed with necrotic material Ext- NT less edema A- ongoing delay in bowel fct Wound necrosis with some fascial opening- probably accounting for ascitic leakage debrided and packed P- Wound minimally opened and debrided pain-free; packed Exam/Review of Systems Vital Signs Vitals Vital Signs Date Time Temp Pulse Resp B/P Pulse Ox O2 Delivery O2 Flow Rate FiO2 04/20/16 19:25 98.6 115 18 130/92 98 04/20/16 07:40 Nasal Cannula 2.0 Intake and Output 04/19/16 04/19/16 04/20/16 15:00 23:00 07:00 Intake Total 780 ml 325 ml 250 ml Output Total 1560 ml 1200 ml Balance 780 ml -1235 ml -950 ml Results Result Diagram: 04/20/16 0448 04/20/16 0448 Results 24 hrs Laboratory Tests Test 04/20/16 04:48 04/20/16 08:27 04/20/16 21:09 Anion Gap 9 Basophils # 0.0 Basophils % 0.3 Blood Urea Nitrogen 19 Calcium Level 7.5 L Carbon Dioxide Level 28 Chloride Level 103 Creatinine 0.58 Eosinophils # 0.1 Eosinophils % 1.2 Glucose Level 148 Hematocrit 24.4 L Hemoglobin 8.0 L Lymphocytes # 1.2 Lymphocytes % 17.1 Mean Corpuscular Hemoglobin 30.5 Mean Corpuscular Hemoglobin Concent 32.8 Mean Corpuscular Volume 93.1 Mean Platelet Volume 12.2 H Monocytes # 0.7 Monocytes % 9.5 Neutrophils # 4.9 Neutrophils % 71.5 Nucleated Red Blood Cells # 0.0 Nucleated Red Blood Cells % 0.0 Platelet Count 92 L Potassium Level 3.4 L Red Blood Count 2.62 L Red Cell Distribution Width 16.3 H Sodium Level 137 White Blood Count 6.9 Bedside Glucose 151 119 Medications Medications Current Medications Acetaminophen/ Hydrocodone Bitart ([place] (5/325)) 1 tab Q6H PRN PO MODERATE PAIN LEVEL 4-6 Last administered on 04/14/16 14:49; Admin Dose 1 TAB; Start at 18:00 Zolpidem Tartrate (Ambien) 5 mg HS PRN PO INSOMNIA Last administered on 23:48; Admin Dose 5 MG; Start 04/01/16 at 22:00 Diphenhydramine HCl (Benadryl) 25 mg Q6H PRN PO ITCHING Last administered on 06:49; Admin Dose 25 MG; Start 04/02/16 at 07:00 Al Hydrox/Mg Hydrox/Simethicone (Mag-Al Plus) 30 ml Q6H PRN PO GASTROINTESTINAL UPSET Last administered on 04/06/16 19:40; Admin Dose 30 ML; Start 04/02/16 at 17:30 Simethicone (Mylicon) 80 mg Q6 PO Last administered on 04/20/16 18:15; Admin Dose 80 MG; Start 04/02/16 at 18:00 Clonidine HCl 1 patch 1 patch Q7D TRANSDERM Last administered on 04/18/16 12: 43; Admin Dose 1 PATCH; Start 04/04/16 at 13:15 Albumin Human (Alburx) 500 ml @ 250 mls/hr ONCE PRN IVPB U/O BELOW 30 ML/HR X 2 HR; Start 04/07/16 at 22:30 Pantoprazole (Protonix Iv) 40 mg DAILY@06 IV Last administered on 04/20/16 05: 32; Admin Dose 40 MG; Start 04/08/16 at 06:00 Hydromorphone HCl (Dilaudid UNIV[employer]ATIONS VICE PRESIDENT) 0.3 MG DOSE 15 ... Q4PCA IV Last administered on 04/20/16 21:31; Admin Dose 6 MG; Start 04/12/16 at 18:00 Hydralazine HCl 10 mg 10 mg Q4H PRN IV HTN Last administered on 04/16/16 08:30 ; Admin Dose 10 MG; Start 04/13/16 at 20:00 Ondansetron HCl 8 mg/Dextrose 54 ml @ 108 mls/hr Q6H PRN IV NAUSEA AND/OR VOMITING Last administered on 04/17/16 17:27; Admin Dose 108 MLS/HR; Start 04/15 at 12:30 Fat Emulsion Intravenous 250 ml @ 31.25 mls/ hr Q24H IV Last administered on 18:15; Admin Dose 31.25 MLS/HR; Start 04/15/16 at 18:00 Total Parenteral Nutrition (Tpn) 1,000 ml @ 65 mls/hr [id number] IV Last administered on 04/20/16 21:12; Admin Dose 65 MLS/HR; Start 04/16/16 at 06:01 Diagnostic Test (Pha) (Accucheck) 1 ea Q12 XX Last administered on 04/20/16 21 :11; Admin Dose 1 EA; Start 04/18/16 at 09:00 Metoclopramide HCl 10 mg 10 mg Q8 IV Last administered on 04/20/16 22:15; Admin Dose 10 MG; Start 04/18/16 at 22:00 Levofloxacin/ Dextrose 150 ml @ 100 mls/hr Q24H IVPB Last administered on 04/20 14:54; Admin Dose 100 MLS/HR; Start 04/20/16 at 14:00 Metronidazole (Flagyl 500 Mg (Pmx)) 100 ml @ 100 mls/hr Q8 IVPB Last administered on 04/20/16 22:15; Admin Dose 100 MLS/HR; Start 04/20/16 at 13:00 ANDI WADDELL MD Apr 20, 2016 23:19
[2016-04-21] MEDS ORDERED: LIDOCAINE 1% (MPF) 30 ML INJ INJ PRN
[2016-04-21] MEDS: HYDROmorphONE 0.2 MG/ML PCA IV SCH ×3 (04:04→21:54)
[2016-04-21] MEDS: METOCLOPRAMIDE 10 MG INJ IV SCH ×3 (05:43→21:31)
[2016-04-21] MEDS: PANTOPRAZOLE 40 MG INJ IV SCH (05:43)
[2016-04-21] MEDS: FUROSEMIDE 20 MG INJ IV SCH ×2 (05:43→18:39)
[2016-04-21] MEDS: metroNIDAZOLE 500 MG/NS (PMX) 100 ML IVPB SCH ×3 (05:43→21:31)
[2016-04-21 05:50] LABS: ADD SCAN DIFF NO
[2016-04-21 06:09] LABS: ABNORMAL IP MESSAGE 1; BASOPHILS % 0.2 % (0.0-2.0); EOSINOPHILS # 0.1 10^3/ul (0.0-0.5); EOSINOPHILS % 1.2 % (0.0-7.0); HEMATOCRIT 24.4 % (37.0-47.0); LYMPHOCYTES % 15.4 % (15.0-51.0); MEAN CORPUSCULAR HEMOGLOBIN 30.8 pg (29.0-33.0); MEAN CORPUSCULAR HGB CONC 32.8 g/dl (32.0-37.0); MEAN CORPUSCULAR VOLUME 93.8 fl (82.0-101.0); MEAN PLATELET VOLUME 11.7 fl (7.4-10.4); MONOCYTE # 0.7 10^3/ul (0.3-0.9); MONOCYTES % 10.2 % (0.0-11.0); NEUTROPHIL # 4.7 10^3/ul (1.6-7.5); NEUTROPHILS % 72.5 % (39.0-77.0); PLATELET COUNT 97 10^3/UL (140-415); WHITE BLOOD COUNT 6.5 10^3/ul (4.8-10.8)
[2016-04-21 06:21] LABS: POTASSIUM 3.9 mmol/L (3.5-5.1)
[2016-04-21 06:24] LABS: CREATININE 0.62 mg/dl (0.44-1.00)
[2016-04-21 06:25] LABS: CALCIUM 7.7 mg/dl (8.4-10.2); MAGNESIUM 1.9 mg/dl (1.7-2.5); PHOSPHORUS 3.8 mg/dl (2.5-4.9)
[2016-04-21 08:31] VITALS: BP 108/67; RESP 18
[2016-04-21] MEDS: ACCU-CHEK XX SCH ×2 (09:00→21:14)
--- NOTE | 2016-04-21 10:57 | CONS ---
Date/Time of Note Date/Time of Note DATE: 04/21/16 TIME: 10:54 Assessment/Plan Assessment/Plan Chief Complaint/Hosp Course 61-year-old female with stage IIIB ovarian cancer s/p surgery by Dr. Johnston in May 2015 and 6 cycles of carbo/taxol with persistently elevated CA125 (now 39.6), recently admitted to outside hospital with CT concerning for persistent disease. Recent PET/CT 03-26-16 showed progressive disease with pelvic ascites and increased omental caking and peritoneal nodularity noted throughout the abdomen and pelvis consistent with progressive recurrent ovarian carcinoma. Pt is now s/p optimal CRS for recurrent disease on 04/08. She was left with < 5mm of residual disease. She now has increased drainage from the wound site and the wound is open - appreciate Dr. Dave's daily wound care. wound is open and draining. - continue Levaquin 750mg IV q 24 hours + Flagyl 500mg q 8 hours ordered in case of an underlying infection - LE Doppler do not reveal evidence of DVT - cont post op care per surgery. pt is ambulating. continue TPN w lipids. pt to try clear liquid diet today - continue Zofran to 8mg IV q 6 prn nausea. nausea now under control - thrombocytopenia and anemia are likely secondary to post op blood loss. her cancer is also contributing to her anemia. Platelets are coming up. will consider blood transfusion tomorrow if Hg< 8 - continue lasix - plan to start adjuvant chemotherapy in house when cleared by ELEVATOR WORKER onc. plan to give 1 dose of Gemcitabine/ Cisplatin. Approximately 40 min were spent at patient's bedside and in coordination of her care Problems: Consultation Date/Type/Reason Admit Date/Time Apr 02, 2016 at 10:07 Initial Consult Date 04/02/16 Type of Consultation: Hematology/Oncology Reason for Consultation ovarian cancer Referring Provider: BRIAN ZAZUETA MD 24 HR Interval Summary Free Text/Dictation pt's pain under better control. antibiotics started yesterday. ambulating. to try clear liquid diet today Exam/Review of Systems Vital Signs Vitals Vital Signs Date Time Temp Pulse Resp B/P Pulse Ox O2 Delivery O2 Flow Rate FiO2 04/21/16 10:32 Nasal Cannula 2.0 04/21/16 08:31 97.9 94 18 108/67 96 Intake and Output 304/20/16 04/21/16 15:00 23:00 07:00 Intake Total 100 ml 1060 ml 870 ml Output Total 50 ml 1400 ml 1880 ml Balance 50 ml -340 ml -1010 ml Exam Constitutional: alert, frail, oriented Psych: depression Head: normocephalic Eyes: nl conjunctiva ENMT: nl external ears & nose Neck: non-tender, supple Respiratory: clear to auscultation, normal air movement Cardiovascular: regular rate and rhythm Gastrointestinal: soft Musculoskeletal: nl extremities to inspection, nl gait and stance Extremities: normal pulses Results Result Diagram: 04/21/1641904/21/16419 Results 24 hrs Laboratory Tests Test 04/20/16 21:09 04/21/16 04:20 04/21/16 09:00 Bedside Glucose 119 137 Anion Gap 10 Basophils # 0.0 Basophils % 0.2 Blood Urea Nitrogen 19 Calcium Level 7.7 L Carbon Dioxide Level 29 Chloride Level 103 Creatinine 0.62 Eosinophils # 0.1 Eosinophils % 1.2 Glucose Level 134 Hematocrit 24.4 L Hemoglobin 8.0 L Lymphocytes # 1.0 Lymphocytes % 15.4 Magnesium Level 1.9 Mean Corpuscular Hemoglobin 30.8 Mean Corpuscular Hemoglobin Concent 32.8 Mean Corpuscular Volume 93.8 Mean Platelet Volume 11.7 H Monocytes # 0.7 Monocytes % 10.2 Neutrophils # 4.7 Neutrophils % 72.5 Nucleated Red Blood Cells # 0.0 Nucleated Red Blood Cells % 0.0 Phosphorus Level 3.8 Platelet Count 97 L Potassium Level 3.9 Red Blood Count 2.60 L Red Cell Distribution Width 16.0 H Sodium Level 138 White Blood Count 6.5 Medications Medications Current Medications Acetaminophen/ Hydrocodone Bitart ([place] (5/325)) 1 tab Q6H PRN PO MODERATE PAIN LEVEL 4-6 Last administered on 04/14/16 14:49; Admin Dose 1 TAB; Start at 18:00 Zolpidem Tartrate (Ambien) 5 mg HS PRN PO INSOMNIA Last administered on 23:48; Admin Dose 5 MG; Start 04/01/16 at 22:00 Diphenhydramine HCl (Benadryl) 25 mg Q6H PRN PO ITCHING Last administered on 06:49; Admin Dose 25 MG; Start 04/02/16 at 07:00 Al Hydrox/Mg Hydrox/Simethicone (Mag-Al Plus) 30 ml Q6H PRN PO GASTROINTESTINAL UPSET Last administered on 04/06/16 19:40; Admin Dose 30 ML; Start 04/02/16 at 17:30 Simethicone (Mylicon) 80 mg Q6 PO Last administered on 04/21/16 05:43; Admin Dose 80 MG; Start 04/02/16 at 18:00 Clonidine HCl 1 patch 1 patch Q7D TRANSDERM Last administered on 04/18/16 12: 43; Admin Dose 1 PATCH; Start 04/04/16 at 13:15 Albumin Human (Alburx) 500 ml @ 250 mls/hr ONCE PRN IVPB U/O BELOW 30 ML/HR X 2 HR; Start 04/07/16 at 22:30 Pantoprazole (Protonix Iv) 40 mg DAILY@06 IV Last administered on 04/21/16 05: 43; Admin Dose 40 MG; Start 04/08/16 at 06:00 Hydromorphone HCl (Dilaudid DIRECTOR AUDIENCE MARKETING) 0.3 MG DOSE 15 ... Q4PCA IV Last administered on 04/21/16 04:04; Admin Dose 6 MG; Start 04/12/16 at 18:00 Hydralazine HCl 10 mg 10 mg Q4H PRN IV HTN Last administered on 04/16/16 08:30 ; Admin Dose 10 MG; Start 04/13/16 at 20:00 Ondansetron HCl 8 mg/Dextrose 54 ml @ 108 mls/hr Q6H PRN IV NAUSEA AND/OR VOMITING Last administered on 04/17/16 17:27; Admin Dose 108 MLS/HR; Start 04/15 at 12:30 Fat Emulsion Intravenous 250 ml @ 31.25 mls/ hr Q24H IV Last administered on 18:15; Admin Dose 31.25 MLS/HR; Start 04/15/16 at 18:00 Total Parenteral Nutrition (Tpn) 1,000 ml @ 65 mls/hr [id number] IV Last administered on 04/20/16 21:12; Admin Dose 65 MLS/HR; Start 04/16/16 at 06:01 Diagnostic Test (Pha) (Accucheck) 1 ea Q12 XX Last administered on 04/21/16 09 :00; Admin Dose 1 EA; Start 04/18/16 at 09:00 Metoclopramide HCl 10 mg 10 mg Q8 IV Last administered on 04/21/16 05:43; Admin Dose 10 MG; Start 04/18/16 at 22:00 Levofloxacin/ Dextrose 150 ml @ 100 mls/hr Q24H IVPB Last administered on 04/20 14:54; Admin Dose 100 MLS/HR; Start 04/20/16 at 14:00 Metronidazole (Flagyl 500 Mg (Pmx)) 100 ml @ 100 mls/hr Q8 IVPB Last administered on 04/21/16 05:43; Admin Dose 100 MLS/HR; Start 04/20/16 at 13:00 Lidocaine (Xylocaine 1% (Mpf)) 30 ml ONCE PRN INJ PAIN AND OR ELEVATED TEMP; Start 04/21/16 at 00:00 DEMETRA COLUNGA M.D. Apr 21, 2016 10:57
[2016-04-21] MEDS ORDERED: LORAZEPAM 2 MG INJ IV PRN (11:30)
[2016-04-21] MEDS: TPN 1,000 ML IV SCH (11:46)
[2016-04-21] MEDS ORDERED: IOHEXOL 14.3 MG(I)/ML (ADULT) BTL PO ONE ×2 (12:00)
[2016-04-21] MEDS: LEVOFLOXACIN 750MG/D5W (PMX) 150 ML IVPB SCH (15:43)
[2016-04-21] MEDS ORDERED: IOHEXOL 300MG/ML 150 ML BTL ONE (17:12)
[2016-04-21] MEDS ORDERED: SOD CHLORIDE 0.9% 100 ML ONE (17:12)
[2016-04-21] MEDS: LORAZEPAM 2 MG INJ IV PRN (18:22)
[2016-04-21] MEDS: FAT EMULSION 20% 250 ML IV SCH (18:25)
--- NOTE | 2016-04-21 19:05 | PN ---
Date/Time of Note Date/Time of Note DATE: 04/21/16 TIME: 19:04 Assessment/Plan VTE Prophylaxis VTE Prophylaxis Intervention: SCD's Lines/Catheters IV Catheter Type (from Nrs): Peripheral IV Urinary Cath still in place: Yes Reason Cath still needed: urinary retention Assessment/Plan Chief Complaint/Hosp Course ASSESSMENT AND PLAN: - Progressive recurrent ovarian carcinoma. Status post chemotherapy. Dr. Foy is following in hematology/oncology consultation. Dr. Johnston is following from a surgery standpoint. S/p bowel resection 04/07. Continue follow -up per general surgery recommendations. Continue TPN and lipids. Patient has significant amount of drainage from incision started on Levaquin and Flagyl. - Intractable abdominal pain and nausea secondary to #1, resolved. Continue Dilaudid p.r.n. for pain and Zofran p.r.n. for nausea. - Bilateral lower extremities edema, ultrasound is negative for DVT, continue Lasix, monitor electrolytes. Continue Lovenox for deep venous thrombosis prophylaxis and Protonix for peptic ulcer disease prophylaxis. Further recommendations based on clinical course. Plan of care was discussed with Dr. Bravo. Problems: Subjective 24 Hr Interval Summary Free Text/Dictation Patient complains of pain, uses WEB CONTENT DIRECTOR Dilaudid, not relieving dima, pt just came back from CT. Pt continues to have drainage from incision site, f/up on Ct abd. Exam/Review of Systems Vital Signs Vitals Vital Signs Date Time Temp Pulse Resp B/P Pulse Ox O2 Delivery O2 Flow Rate FiO2 04/21/16 10:32 Nasal Cannula 2.0 04/21/16 08:31 97.9 94 18 108/67 96 Intake and Output 04/20/16 04/20/16 04/21/16 15:00 23:00 07:00 Intake Total 100 ml 1060 ml 870 ml Output Total 50 ml 1400 ml 1880 ml Balance 50 ml -340 ml -1010 ml Exam PHYSICAL ASSESSMENT: GENERAL: Well-developed, well-nourished female currently is awake, alert. HEENT: Head is atraumatic, normocephalic. NGT to LWS. NECK: Supple, no cervical lymphadenopathy, no thyromegaly. CHEST: Lungs clear bilaterally. There is no rhonchi, wheezes, rales noted. CARDIOVASCULAR: Normal S1, S2. No murmurs, gallops, clicks, rubs noted. ABDOMEN: Round, soft, s/p surgery with midline incision, EMERITA. SKIN: There is no rash, petechiae noted. EXTREMITIES: No edema, clubbing, cyanosis. Pulses equal bilaterally 2+. Mild edema. SKIN: There is no rash or petechiae noted. NEUROLOGICAL: The patient is awake, alert and oriented x4. Results Result Diagram: 04/21/16 0420 04/21/16 0420 Results 24 hrs Laboratory Tests Test 04/20/16 21:09 04/21/16 04:20 04/21/16 09:00 Bedside Glucose 119 137 Anion Gap 10 Basophils # 0.0 Basophils % 0.2 Blood Urea Nitrogen 19 Calcium Level 7.7 L Carbon Dioxide Level 29 Chloride Level 103 Creatinine 0.62 Eosinophils # 0.1 Eosinophils % 1.2 Glucose Level 134 Hematocrit 24.4 L Hemoglobin 8.0 L Lymphocytes # 1.0 Lymphocytes % 15.4 Magnesium Level 1.9 Mean Corpuscular Hemoglobin 30.8 Mean Corpuscular Hemoglobin Concent 32.8 Mean Corpuscular Volume 93.8 Mean Platelet Volume 11.7 H Monocytes # 0.7 Monocytes % 10.2 Neutrophils # 4.7 Neutrophils % 72.5 Nucleated Red Blood Cells # 0.0 Nucleated Red Blood Cells % 0.0 Phosphorus Level 3.8 Platelet Count 97 L Potassium Level 3.9 Red Blood Count 2.60 L Red Cell Distribution Width 16.0 H Sodium Level 138 White Blood Count 6.5 Medications Medications Current Medications Acetaminophen/ Hydrocodone Bitart ([place] (5/325)) 1 tab Q6H PRN PO MODERATE PAIN LEVEL 4-6 Last administered on 04/14/16 14:49; Admin Dose 1 TAB; Start at 18:00 Zolpidem Tartrate (Ambien) 5 mg HS PRN PO INSOMNIA Last administered on 23:48; Admin Dose 5 MG; Start 04/01/16 at 22:00 Diphenhydramine HCl (Benadryl) 25 mg Q6H PRN PO ITCHING Last administered on 06:49; Admin Dose 25 MG; Start 04/02/16 at 07:00 Al Hydrox/Mg Hydrox/Simethicone (Mag-Al Plus) 30 ml Q6H PRN PO GASTROINTESTINAL UPSET Last administered on 04/06/16 19:40; Admin Dose 30 ML; Start 04/02/16 at 17:30 Simethicone (Mylicon) 80 mg Q6 PO Last administered on 04/21/16 18:24; Admin Dose 80 MG; Start 04/02/16 at 18:00 Clonidine HCl 1 patch 1 patch Q7D TRANSDERM Last administered on 04/18/16 12: 43; Admin Dose 1 PATCH; Start 04/04/16 at 13:15 Albumin Human (Alburx) 500 ml @ 250 mls/hr ONCE PRN IVPB U/O BELOW 30 ML/HR X 2 HR; Start 04/07/16 at 22:30 Pantoprazole (Protonix Iv) 40 mg DAILY@06 IV Last administered on 04/21/16 05: 43; Admin Dose 40 MG; Start 04/08/16 at 06:00 Hydromorphone HCl (Dilaudid WEB CONTENT DIRECTOR) 0.3 MG DOSE 15 ... Q4PCA IV Last administered on 04/21/16 13:49; Admin Dose 6 MG; Start 04/12/16 at 18:00 Hydralazine HCl 10 mg 10 mg Q4H PRN IV HTN Last administered on 04/16/16 08:30 ; Admin Dose 10 MG; Start 04/13/16 at 20:00 Ondansetron HCl 8 mg/Dextrose 54 ml @ 108 mls/hr Q6H PRN IV NAUSEA AND/OR VOMITING Last administered on 04/17/16 17:27; Admin Dose 108 MLS/HR; Start 04/15 at 12:30 Fat Emulsion Intravenous 250 ml @ 31.25 mls/ hr Q24H IV Last administered on 18:25; Admin Dose 31.25 MLS/HR; Start 04/15/16 at 18:00 Total Parenteral Nutrition (Tpn) 1,000 ml @ 65 mls/hr [id number] IV Last administered on 04/21/16 11:46; Admin Dose 65 MLS/HR; Start 04/16/16 at 06:01 Diagnostic Test (Pha) (Accucheck) 1 ea Q12 XX Last administered on 04/21/16 09 :00; Admin Dose 1 EA; Start 04/18/16 at 09:00 Metoclopramide HCl 10 mg 10 mg Q8 IV Last administered on 04/21/16 14:19; Admin Dose 10 MG; Start 04/18/16 at 22:00 Levofloxacin/ Dextrose 150 ml @ 100 mls/hr Q24H IVPB Last administered on 04/21 15:43; Admin Dose 100 MLS/HR; Start 04/20/16 at 14:00 Metronidazole (Flagyl 500 Mg (Pmx)) 100 ml @ 100 mls/hr Q8 IVPB Last administered on 04/21/16 14:19; Admin Dose 100 MLS/HR; Start 04/20/16 at 13:00 Lidocaine (Xylocaine 1% (Mpf)) 30 ml ONCE PRN INJ PAIN AND OR ELEVATED TEMP; Start 04/21/16 at 00:00 Lorazepam (Ativan) 1 mg Q6H PRN IV ANXIETY Last administered on 04/21/16 18:22 ; Admin Dose 1 MG; Start 04/21/16 at 18:11 LARRY MEJIA Apr 21, 2016 19:05
[2016-04-21] MEDS ORDERED: HYDROmorphONE 1 MG/ML SYG IV STA (19:06)
[2016-04-21 20:06] VITALS: BP 120/79; RESP 20
[2016-04-22] MEDS: LORAZEPAM 2 MG INJ IV PRN ×4 (00:30→22:49)
[2016-04-22] MEDS: TPN 1,000 ML IV SCH ×2 (03:49→17:58)
[2016-04-22 05:26] LABS: ADD SCAN DIFF NO
[2016-04-22 05:35] LABS: BASOPHILS % 0.3 % (0.0-2.0); EOSINOPHILS # 0.1 10^3/ul (0.0-0.5); EOSINOPHILS % 0.9 % (0.0-7.0); HEMATOCRIT 27.4 % (37.0-47.0); LYMPHOCYTES # 0.9 10^3/ul (0.8-2.9); LYMPHOCYTES % 10.4 % (15.0-51.0); MEAN CORPUSCULAR HGB CONC 32.8 g/dl (32.0-37.0); MEAN CORPUSCULAR VOLUME 94.5 fl (82.0-101.0); MEAN PLATELET VOLUME 12.3 fl (7.4-10.4); MONOCYTE # 0.8 10^3/ul (0.3-0.9); MONOCYTES % 9.5 % (0.0-11.0); NEUTROPHIL # 6.8 10^3/ul (1.6-7.5); NEUTROPHILS % 78.3 % (39.0-77.0); PLATELET COUNT 103 10^3/UL (140-415); RED CELL DISTRIBUTION WIDTH 15.9 % (11.5-14.5); WHITE BLOOD COUNT 8.6 10^3/ul (4.8-10.8)
[2016-04-22 05:45] LABS: POTASSIUM 3.9 mmol/L (3.5-5.1)
[2016-04-22 05:48] LABS: CREATININE 0.63 mg/dl (0.44-1.00)
[2016-04-22] MEDS: metroNIDAZOLE 500 MG/NS (PMX) 100 ML IVPB SCH ×3 (05:48→20:54)
[2016-04-22] MEDS: METOCLOPRAMIDE 10 MG INJ IV SCH ×3 (05:48→20:53)
[2016-04-22] MEDS: PANTOPRAZOLE 40 MG INJ IV SCH (05:48)
[2016-04-22] MEDS: FUROSEMIDE 20 MG INJ IV SCH ×2 (05:48→18:05)
[2016-04-22 05:49] LABS: CALCIUM 7.7 mg/dl (8.4-10.2)
[2016-04-22 07:45] VITALS: BP 125/81; RESP 16
[2016-04-22] MEDS: ACCU-CHEK XX SCH ×2 (09:26→20:54)
--- NOTE | 2016-04-22 09:34 | RADRPT ---
PROCEDURE: CT Abdomen and Pelvis with Contrast CLINICAL INDICATION: Sudden abdominal pain TECHNIQUE: Transaxial images were obtained through the abdomen and pelvis on a multi-slice scanner following the intravenous administration of iodinated contrast. No oral contrast had previously be en given. Sagittal and coronal re-formations were subsequently reconstructed. One or more of the following dose reduction techniques were used: - Automated exposure control. - Adjustment of the mA and/or kV according to patient size. - Use of iterative reconstruction technique. Radiation dose: CTDIvol = 35.37 mGy; DLP = 1987.36 mGy-cm. COMPARISON: 04/01/2016 FINDINGS: Lung bases: Catheter artifact projects to the right atrium. There has been interval development of subsegmental atelectasis within the lower lobes bilaterally and development of moderate gravitating bilateral pleural fluid accumulations as well as a small pericardial effusion. Liver: The liver is mildly enlarged. A 2.4 x 1.1 cm subcapsular cystic lesion is seen within the po sterior right lobe, a 4.8 x 2.0 cm subcapsular cyst is seen within the medial right lobe inferiorly and several smaller subcapsular cystic lesions are identified. A 3.6 x 1.4 cm subcapsular cyst is s een within the anterior left lobe. Gallbladder: The gallbladder wall appears slightly thickened and there is again layering of small st ones compatible with cholelithiasis. Bile ducts: The intra and extrahepatic bile ducts are normal in caliber. Pancreas: Appears normal with no mass or inflammation evident. Spleen: Normal in size with no focal lesion. Adrenals: Normal with no mass identified. Kidneys, ureters and bladder: There is moderate bilateral pelvocaliectasis. No renal mass or intra renal calcification is evident. The ureters are not dilated no ureterolith is evident. A Calvo cat heter is seen within the bladder. Reproductive organs: The uterus is not identified. Stomach, bowel, and mesentery: The bowel gas pattern reflects an ileus. Sheridan are seen around the rectum. There are areas of bowel wall thickening. No bowel obstruction is identified. Appendix: The vermiform appendix is not discretely identified. Peritoneum: There are multiple loculated intraperitoneal fluid collections the largest being within the left anterior upper outer quadrant measuring 11.5 x 10.3 x 4.2 cm. There is wall enhancement. Another loculated intraperitoneal fluid collection with wall enhancement is seen within the right an terior abdomen measuring 9.7 x 7.7 by 2.2 cm. Several smaller collections are seen more inferiorly within the left and right lateral intraperitoneal cavities. There is 1 within the pelvis to the rig ht of midline measuring 3.9 x 1.8 cm. A percutaneous catheter enters from the left anterior abdomin al wall with the tip located within the central pelvis to the left of midline. It is not certain wh ether this represents a drainage catheter or a jejunostomy tube as the bowel is not distended about the catheter. Aorta: Normal in caliber with no aneurysmal dilatation. IVC: Unremarkable. There are 2 left renal veins 1 coursing anterior and the other posterior to the a darion. Lymph nodes: A few shotty retroperitoneal nodes are evident. Osseous structures: Mild diffuse degenerative spine changes are noted. Soft tissues: There is increased stranding throughout the subcutaneous and deep intraperitoneal fat compatible with anasarca. IMPRESSION: 1. Since the previous CT of 04/01/2016, there has been an interval decrease to the amount of free i ntraperitoneal fluid, but now, multiple loculated fluid collections with wall enhancement are seen t hrough the intraperitoneal cavity suspicious for either malignant fluid collections or possibly infe cted fluid collections. 2. Increased number of subcapsular fluid collections within the liver. The liver is mildly enlarge d. 3. The bowel gas pattern reflects an ileus and there are areas of bowel wall thickening compatible with inflammatory or edematous change. Anastomotic santos are again seen at the rectum and now are seen within small bowel. There is again distension of the rectal ampulla. 4. A catheter has been placed through the left abdominal wall with the tip lying within the central pelvis to the left of midline. This either represents a drainage catheter or a jejunostomy tube. 5. There is again moderate bilateral pelvocaliectasis without significant ureteral dilatation. A F oley catheter is seen within the normally distended bladder. 6. Persistent cholelithiasis but the gallbladder mildly distended and the gallbladder wall now appe aring mildly thickened. 7. There is now and a partially open vertically oriented midline abdominal incision. 8. Interval development of moderate gravitating bilateral pleural fluid accumulations and anterior pericardial effusion and interval development of subsegmental atelectasis involving both lower lobes . 9. Catheter artifact again projects to the right atrium. 10. Interval development of anasarca. Gomez Atkinson Physician Date Time Electronically viewed and signed by Gomez Atkinson Physician on 04/22/2016 09:34 /
[2016-04-22] MEDS: HYDROmorphONE 0.2 MG/ML PCA IV SCH ×2 (10:06→18:44)
--- NOTE | 2016-04-22 13:28 | CONS ---
Date/Time of Note Date/Time of Note DATE: 04/22/16 TIME: 13:27 Assessment/Plan Assessment/Plan Chief Complaint/Hosp Course 61-year-old female with stage IIIB ovarian cancer s/p surgery by Dr. Johnston in May 2015 and 6 cycles of carbo/taxol with persistently elevated CA125 (now 39.6), recently admitted to outside hospital with CT concerning for persistent disease. Recent PET/CT 03-26-16 showed progressive disease with pelvic ascites and increased omental caking and peritoneal nodularity noted throughout the abdomen and pelvis consistent with progressive recurrent ovarian carcinoma. Pt is now s/p optimal CRS for recurrent disease on 04/08. She was left with < 5mm of residual disease. She now has increased drainage from the wound site and the wound is open - appreciate Dr. Dave's daily wound care. wound continues to be open and draining. pt will likely need repeat surgery per Dr. Dave - continue Levaquin 750mg IV q 24 hours + Flagyl 500mg q 8 hours ordered in case of an underlying infection - LE Doppler do not reveal evidence of DVT - cont post op care per surgery. pt is ambulating. continue TPN w lipids. pt to try clear liquid diet today - continue Zofran to 8mg IV q 6 prn nausea. nausea now under control - thrombocytopenia and anemia are likely secondary to post op blood loss. her cancer is also contributing to her anemia. Platelets are coming up. will consider blood transfusion tomorrow if Hg< 8 - continue lasix - plan to start adjuvant chemotherapy in house when cleared by [employer] onc. plan to give 1 dose of Gemcitabine/ Cisplatin. Approximately 40 min were spent at patient's bedside and in coordination of her care Problems: Consultation Date/Type/Reason Admit Date/Time Apr 02, 2016 at 10:07 Initial Consult Date 04/02/16 Type of Consultation: Hematology/Oncology Reason for Consultation ovarian cancer Referring Provider: BRIAN ZAZUETA MD 24 HR Interval Summary Free Text/Dictation pt still draining from surgical site. continues on antibiotics. pt states she has pain after she tried to eat broth Exam/Review of Systems Vital Signs Vitals Vital Signs Date Time Temp Pulse Resp B/P Pulse Ox O2 Delivery O2 Flow Rate FiO2 04/22/16 10:51 Nasal Cannula 2.0 04/22/16 09:53 18 04/22/16 07:45 98.5 85 125/81 98 Intake and Output 04/21/16 04/21/16 04/22/16 15:00 23:00 07:00 Intake Total 620 ml 400 ml 1430 ml Output Total 1280 ml 2000 ml Balance 620 ml -880 ml -570 ml Exam Constitutional: distress, frail Psych: anxiety, depression Head: normocephalic Eyes: nl conjunctiva ENMT: nl external ears & nose Neck: jvd, supple Respiratory: clear to auscultation Cardiovascular: regular rate and rhythm Gastrointestinal: other (EMERITA in place. draining from surgical site) Musculoskeletal: nl extremities to inspection Extremities: normal pulses Results Result Diagram: 04/22/16 0450 04/22/16 0450 Results 24 hrs Laboratory Tests Test 04/21/16 21:06 04/22/16 04:50 04/22/16 09:24 Bedside Glucose 113 148 Anion Gap 12 Basophils # 0.0 Basophils % 0.3 Blood Urea Nitrogen 20 Calcium Level 7.7 L Carbon Dioxide Level 26 Chloride Level 103 Creatinine 0.63 Eosinophils # 0.1 Eosinophils % 0.9 Glucose Level 133 Hematocrit 27.4 L Hemoglobin 9.0 L Lymphocytes # 0.9 Lymphocytes % 10.4 L Mean Corpuscular Hemoglobin 31.0 Mean Corpuscular Hemoglobin Concent 32.8 Mean Corpuscular Volume 94.5 Mean Platelet Volume 12.3 H Monocytes # 0.8 Monocytes % 9.5 Neutrophils # 6.8 Neutrophils % 78.3 H Nucleated Red Blood Cells # 0.0 Nucleated Red Blood Cells % 0.0 Platelet Count 103 L Potassium Level 3.9 Red Blood Count 2.90 L Red Cell Distribution Width 15.9 H Sodium Level 137 White Blood Count 8.6 # Medications Medications Current Medications Acetaminophen/ Hydrocodone Bitart ([place] (5/325)) 1 tab Q6H PRN PO MODERATE PAIN LEVEL 4-6 Last administered on 04/14/16 14:49; Admin Dose 1 TAB; Start at 18:00 Zolpidem Tartrate (Ambien) 5 mg HS PRN PO INSOMNIA Last administered on 23:48; Admin Dose 5 MG; Start 04/01/16 at 22:00 Diphenhydramine HCl (Benadryl) 25 mg Q6H PRN PO ITCHING Last administered on 06:49; Admin Dose 25 MG; Start 04/02/16 at 07:00 Al Hydrox/Mg Hydrox/Simethicone (Mag-Al Plus) 30 ml Q6H PRN PO GASTROINTESTINAL UPSET Last administered on 04/06/16 19:40; Admin Dose 30 ML; Start 04/02/16 at 17:30 Simethicone (Mylicon) 80 mg Q6 PO Last administered on 04/21/16 18:24; Admin Dose 80 MG; Start 04/02/16 at 18:00 Clonidine HCl 1 patch 1 patch Q7D TRANSDERM Last administered on 04/18/16 12: 43; Admin Dose 1 PATCH; Start 04/04/16 at 13:15 Albumin Human (Alburx) 500 ml @ 250 mls/hr ONCE PRN IVPB U/O BELOW 30 ML/HR X 2 HR; Start 04/07/16 at 22:30 Pantoprazole (Protonix Iv) 40 mg DAILY@06 IV Last administered on 04/22/16 05: 48; Admin Dose 40 MG; Start 04/08/16 at 06:00 Hydromorphone HCl (Dilaudid PERFORMANCE ENGINEER) 0.3 MG/HR CONTINUOUS 0.3... Q4PCA IV Last administered on 04/22/16 10:06; Admin Dose 6 MG; Start 04/12/16 at 18:00 Hydralazine HCl 10 mg 10 mg Q4H PRN IV HTN Last administered on 04/16/16 08:30 ; Admin Dose 10 MG; Start 04/13/16 at 20:00 Ondansetron HCl 8 mg/Dextrose 54 ml @ 108 mls/hr Q6H PRN IV NAUSEA AND/OR VOMITING Last administered on 04/17/16 17:27; Admin Dose 108 MLS/HR; Start 04/15 at 12:30 Fat Emulsion Intravenous 250 ml @ 31.25 mls/ hr Q24H IV Last administered on 18:25; Admin Dose 31.25 MLS/HR; Start 04/15/16 at 18:00 Total Parenteral Nutrition (Tpn) 1,000 ml @ 65 mls/hr [id number] IV Last administered on 04/22/16 03:49; Admin Dose 65 MLS/HR; Start 04/16/16 at 06:01 Diagnostic Test (Pha) (Accucheck) 1 ea Q12 XX Last administered on 04/22/16 09 :26; Admin Dose 1 EA; Start 04/18/16 at 09:00 Metoclopramide HCl 10 mg 10 mg Q8 IV Last administered on 04/22/16 05:48; Admin Dose 10 MG; Start 04/18/16 at 22:00 Levofloxacin/ Dextrose 150 ml @ 100 mls/hr Q24H IVPB Last administered on 04/21 15:43; Admin Dose 100 MLS/HR; Start 04/20/16 at 14:00 Metronidazole (Flagyl 500 Mg (Pmx)) 100 ml @ 100 mls/hr Q8 IVPB Last administered on 04/22/16 05:48; Admin Dose 100 MLS/HR; Start 04/20/16 at 13:00 Lidocaine (Xylocaine 1% (Mpf)) 30 ml ONCE PRN INJ PAIN AND OR ELEVATED TEMP; Start 04/21/16 at 00:00 Lorazepam (Ativan) 1 mg Q6H PRN IV ANXIETY Last administered on 04/22/16 07:43 ; Admin Dose 1 MG; Start 04/21/16 at 18:11 DEMETRA COLUNGA M.D. Apr 22, 2016 13:28
[2016-04-22] MEDS: LEVOFLOXACIN 750MG/D5W (PMX) 150 ML IVPB SCH (15:47)
--- NOTE | 2016-04-22 17:15 | PN ---
Date/Time of Note Date/Time of Note DATE: 04/22/16 TIME: 17:09 Assessment/Plan VTE Prophylaxis VTE Prophylaxis Intervention: SCD's Lines/Catheters IV Catheter Type (from Nrs): Peripheral IV Urinary Cath still in place: Yes Reason Cath still needed: urinary retention Assessment/Plan Chief Complaint/Hosp Course ASSESSMENT AND PLAN: - Progressive recurrent ovarian carcinoma. Status post chemotherapy. Dr. Foy is following in hematology/oncology consultation. Dr. Johnston is following from a surgery standpoint. S/p bowel resection 04/07. Continue follow -up per general surgery recommendations. Continue TPN and lipids. Patient has significant amount of drainage from incision started on Levaquin and Flagyl. - Multiple loculated fluid collections per CT of the abdomen, continue to follow up surgical recommendations - Intractable abdominal pain and nausea secondary to #1, resolved. Continue GARDENER FLORIST Dilaudid. Dr. Green is asked to see patient in pain management consultation. - Bilateral lower extremities edema, ultrasound is negative for DVT, continue Lasix, monitor electrolytes. Continue Lovenox for deep venous thrombosis prophylaxis and Protonix for peptic ulcer disease prophylaxis. Further recommendations based on clinical course. Plan of care was discussed with Dr. Bravo. Problems: Subjective 24 Hr Interval Summary Free Text/Dictation Patient remains afebrile, pain is slightly better controlled with increased basal rate of GARDENER FLORIST Dilaudid. Patient was started on clear liquids yesterday however had increased abdominal pain. Exam/Review of Systems Vital Signs Vitals Vital Signs Date Time Temp Pulse Resp B/P Pulse Ox O2 Delivery O2 Flow Rate FiO2 04/22/16 10:51 Nasal Cannula 2.0 04/22/16 09:53 18 04/22/16 07:45 98.5 85 125/81 98 Intake and Output 04/21/16 04/21/16 04/22/16 15:00 23:00 07:00 Intake Total 620 ml 400 ml 1430 ml Output Total 1280 ml 2000 ml Balance 620 ml -880 ml -570 ml Exam PHYSICAL ASSESSMENT: GENERAL: Well-developed, well-nourished female currently is awake, alert. HEENT: Head is atraumatic, normocephalic. NGT to LWS. NECK: Supple, no cervical lymphadenopathy, no thyromegaly. CHEST: Lungs clear bilaterally. There is no rhonchi, wheezes, rales noted. CARDIOVASCULAR: Normal S1, S2. No murmurs, gallops, clicks, rubs noted. ABDOMEN: Round, soft, s/p surgery with midline incision, EMERITA. SKIN: There is no rash, petechiae noted. EXTREMITIES: No edema, clubbing, cyanosis. Pulses equal bilaterally 2+. Mild edema. SKIN: There is no rash or petechiae noted. NEUROLOGICAL: The patient is awake, alert and oriented x4. Results Result Diagram: 04/22/16 0450 04/22/16 0450 Results 24 hrs Laboratory Tests Test 04/21/16 21:06 04/22/16 04:50 04/22/16 09:24 Bedside Glucose 113 148 Anion Gap 12 Basophils # 0.0 Basophils % 0.3 Blood Urea Nitrogen 20 Calcium Level 7.7 L Carbon Dioxide Level 26 Chloride Level 103 Creatinine 0.63 Eosinophils # 0.1 Eosinophils % 0.9 Glucose Level 133 Hematocrit 27.4 L Hemoglobin 9.0 L Lymphocytes # 0.9 Lymphocytes % 10.4 L Mean Corpuscular Hemoglobin 31.0 Mean Corpuscular Hemoglobin Concent 32.8 Mean Corpuscular Volume 94.5 Mean Platelet Volume 12.3 H Monocytes # 0.8 Monocytes % 9.5 Neutrophils # 6.8 Neutrophils % 78.3 H Nucleated Red Blood Cells # 0.0 Nucleated Red Blood Cells % 0.0 Platelet Count 103 L Potassium Level 3.9 Red Blood Count 2.90 L Red Cell Distribution Width 15.9 H Sodium Level 137 White Blood Count 8.6 # Medications Medications Current Medications Acetaminophen/ Hydrocodone Bitart ([place] (5/325)) 1 tab Q6H PRN PO MODERATE PAIN LEVEL 4-6 Last administered on 04/14/16 14:49; Admin Dose 1 TAB; Start at 18:00 Zolpidem Tartrate (Ambien) 5 mg HS PRN PO INSOMNIA Last administered on 23:48; Admin Dose 5 MG; Start 04/01/16 at 22:00 Diphenhydramine HCl (Benadryl) 25 mg Q6H PRN PO ITCHING Last administered on 06:49; Admin Dose 25 MG; Start 04/02/16 at 07:00 Al Hydrox/Mg Hydrox/Simethicone (Mag-Al Plus) 30 ml Q6H PRN PO GASTROINTESTINAL UPSET Last administered on 04/06/16 19:40; Admin Dose 30 ML; Start 04/02/16 at 17:30 Simethicone (Mylicon) 80 mg Q6 PO Last administered on 04/21/16 18:24; Admin Dose 80 MG; Start 04/02/16 at 18:00 Clonidine HCl 1 patch 1 patch Q7D TRANSDERM Last administered on 04/18/16 12: 43; Admin Dose 1 PATCH; Start 04/04/16 at 13:15 Albumin Human (Alburx) 500 ml @ 250 mls/hr ONCE PRN IVPB U/O BELOW 30 ML/HR X 2 HR; Start 04/07/16 at 22:30 Pantoprazole (Protonix Iv) 40 mg DAILY@06 IV Last administered on 04/22/16 05: 48; Admin Dose 40 MG; Start 04/08/16 at 06:00 Hydromorphone HCl (Dilaudid GARDENER FLORIST) 0.3 MG/HR CONTINUOUS 0.3... Q4PCA IV Last administered on 04/22/16 10:06; Admin Dose 6 MG; Start 04/12/16 at 18:00 Hydralazine HCl 10 mg 10 mg Q4H PRN IV HTN Last administered on 04/16/16 08:30 ; Admin Dose 10 MG; Start 04/13/16 at 20:00 Ondansetron HCl 8 mg/Dextrose 54 ml @ 108 mls/hr Q6H PRN IV NAUSEA AND/OR VOMITING Last administered on 04/17/16 17:27; Admin Dose 108 MLS/HR; Start 04/15 at 12:30 Fat Emulsion Intravenous 250 ml @ 31.25 mls/ hr Q24H IV Last administered on 18:25; Admin Dose 31.25 MLS/HR; Start 04/15/16 at 18:00 Total Parenteral Nutrition (Tpn) 1,000 ml @ 65 mls/hr [id number] IV Last administered on 04/22/16 03:49; Admin Dose 65 MLS/HR; Start 04/16/16 at 06:01 Diagnostic Test (Pha) (Accucheck) 1 ea Q12 XX Last administered on 04/22/16 09 :26; Admin Dose 1 EA; Start 04/18/16 at 09:00 Metoclopramide HCl 10 mg 10 mg Q8 IV Last administered on 04/22/16 14:44; Admin Dose 10 MG; Start 04/18/16 at 22:00 Levofloxacin/ Dextrose 150 ml @ 100 mls/hr Q24H IVPB Last administered on 04/22 15:47; Admin Dose 100 MLS/HR; Start 04/20/16 at 14:00 Metronidazole (Flagyl 500 Mg (Pmx)) 100 ml @ 100 mls/hr Q8 IVPB Last administered on 04/22/16 14:44; Admin Dose 100 MLS/HR; Start 04/20/16 at 13:00 Lidocaine (Xylocaine 1% (Mpf)) 30 ml ONCE PRN INJ PAIN AND OR ELEVATED TEMP; Start 04/21/16 at 00:00 Lorazepam (Ativan) 1 mg Q6H PRN IV ANXIETY Last administered on 04/22/16 16:44 ; Admin Dose 1 MG; Start 04/21/16 at 18:11 LARRY MEJIA Apr 22, 2016 17:15 LARRY MEJIA Apr 22, 2016 17:15
[2016-04-22] MEDS: FAT EMULSION 20% 250 ML IV SCH (18:00)
[2016-04-22 19:31] VITALS: BP 120/85; RESP 17
--- NOTE | 2016-04-22 22:41 | PN ---
Date/Time of Note Date/Time of Note DATE: 04/22/16 TIME: 22:39 Assessment/Plan VTE Prophylaxis VTE Prophylaxis Intervention: SCD's Lines/Catheters IV Catheter Type (from Nrs): Peripheral IV Urinary Cath still in place: Yes Assessment/Plan Chief Complaint/Hosp Course Ovarian cancer with recurrence would benefit from secondary CRS even though persistent disease because the problem is her chemo was delayed 3 months postop. Informed of need to start chemo nathan postop and will call [facility] Problems: Subjective 24 Hr Interval Summary Free Text/Dictation S- OOB occasionally and no flatus, increased pain O- Resp- clear CVS- NSR Abd- appropriate tenderness and incision adequately packed with increased depth and suggestion of mucinous material Ext- NT less edema A- ongoing delay in bowel fct Wound necrosis with some fascial opening- probably accounting for ascitic leakage debrided and packed P- CT to r/o bowel leak andconsider reoperation Exam/Review of Systems Vital Signs Vitals Vital Signs Date Time Temp Pulse Resp B/P Pulse Ox O2 Delivery O2 Flow Rate FiO2 04/22/16 19:31 98.2 101 17 120/85 98 04/22/16 10:51 Nasal Cannula 2.0 Intake and Output 04/21/16 04/21/16 04/22/16 15:00 23:00 07:00 Intake Total 620 ml 400 ml 1430 ml Output Total 1280 ml 2000 ml Balance 620 ml -880 ml -570 ml Results Result Diagram: 04/22/16 0450 04/22/16 0450 Results 24 hrs Laboratory Tests Test 04/22/16 04:50 04/22/16 09:24 04/22/16 20:52 Anion Gap 12 Basophils # 0.0 Basophils % 0.3 Blood Urea Nitrogen 20 Calcium Level 7.7 L Carbon Dioxide Level 26 Chloride Level 103 Creatinine 0.63 Eosinophils # 0.1 Eosinophils % 0.9 Glucose Level 133 Hematocrit 27.4 L Hemoglobin 9.0 L Lymphocytes # 0.9 Lymphocytes % 10.4 L Mean Corpuscular Hemoglobin 31.0 Mean Corpuscular Hemoglobin Concent 32.8 Mean Corpuscular Volume 94.5 Mean Platelet Volume 12.3 H Monocytes # 0.8 Monocytes % 9.5 Neutrophils # 6.8 Neutrophils % 78.3 H Nucleated Red Blood Cells # 0.0 Nucleated Red Blood Cells % 0.0 Platelet Count 103 L Potassium Level 3.9 Red Blood Count 2.90 L Red Cell Distribution Width 15.9 H Sodium Level 137 White Blood Count 8.6 # Bedside Glucose 148 118 Medications Medications Current Medications Acetaminophen/ Hydrocodone Bitart ([place] (5/325)) 1 tab Q6H PRN PO MODERATE PAIN LEVEL 4-6 Last administered on 04/14/16 14:49; Admin Dose 1 TAB; Start at 18:00 Zolpidem Tartrate (Ambien) 5 mg HS PRN PO INSOMNIA Last administered on 23:48; Admin Dose 5 MG; Start 04/01/16 at 22:00 Diphenhydramine HCl (Benadryl) 25 mg Q6H PRN PO ITCHING Last administered on 06:49; Admin Dose 25 MG; Start 04/02/16 at 07:00 Al Hydrox/Mg Hydrox/Simethicone (Mag-Al Plus) 30 ml Q6H PRN PO GASTROINTESTINAL UPSET Last administered on 04/06/16 19:40; Admin Dose 30 ML; Start 04/02/16 at 17:30 Simethicone (Mylicon) 80 mg Q6 PO Last administered on 04/22/16 17:58; Admin Dose 80 MG; Start 04/02/16 at 18:00 Clonidine HCl 1 patch 1 patch Q7D TRANSDERM Last administered on 04/18/16 12: 43; Admin Dose 1 PATCH; Start 04/04/16 at 13:15 Albumin Human (Alburx) 500 ml @ 250 mls/hr ONCE PRN IVPB U/O BELOW 30 ML/HR X 2 HR; Start 04/07/16 at 22:30 Pantoprazole (Protonix Iv) 40 mg DAILY@06 IV Last administered on 04/22/16 05: 48; Admin Dose 40 MG; Start 04/08/16 at 06:00 Hydromorphone HCl (Dilaudid SEGMENT ASSEMBLER) 0.3 MG/HR CONTINUOUS 0.3... Q4PCA IV Last administered on 04/22/16 18:44; Admin Dose 6 MG; Start 04/12/16 at 18:00 Hydralazine HCl 10 mg 10 mg Q4H PRN IV HTN Last administered on 04/16/16 08:30 ; Admin Dose 10 MG; Start 04/13/16 at 20:00 Ondansetron HCl 8 mg/Dextrose 54 ml @ 108 mls/hr Q6H PRN IV NAUSEA AND/OR VOMITING Last administered on 04/17/16 17:27; Admin Dose 108 MLS/HR; Start 04/15 at 12:30 Fat Emulsion Intravenous 250 ml @ 31.25 mls/ hr Q24H IV Last administered on 18:00; Admin Dose 31.25 MLS/HR; Start 04/15/16 at 18:00 Total Parenteral Nutrition (Tpn) 1,000 ml @ 65 mls/hr [id number] IV Last administered on 04/22/16 17:58; Admin Dose 65 MLS/HR; Start 04/16/16 at 06:01 Diagnostic Test (Pha) (Accucheck) 1 ea Q12 XX Last administered on 04/22/16 20 :54; Admin Dose 1 EA; Start 04/18/16 at 09:00 Metoclopramide HCl 10 mg 10 mg Q8 IV Last administered on 04/22/16 20:53; Admin Dose 10 MG; Start 04/18/16 at 22:00 Levofloxacin/ Dextrose 150 ml @ 100 mls/hr Q24H IVPB Last administered on 04/22 15:47; Admin Dose 100 MLS/HR; Start 04/20/16 at 14:00 Metronidazole (Flagyl 500 Mg (Pmx)) 100 ml @ 100 mls/hr Q8 IVPB Last administered on 04/22/16 20:54; Admin Dose 100 MLS/HR; Start 04/20/16 at 13:00 Lidocaine (Xylocaine 1% (Mpf)) 30 ml ONCE PRN INJ PAIN AND OR ELEVATED TEMP; Start 04/21/16 at 00:00 Lorazepam (Ativan) 1 mg Q6H PRN IV ANXIETY Last administered on 04/22/16 16:44 ; Admin Dose 1 MG; Start 04/21/16 at 18:11 ANDI WADDELL MD Apr 22, 2016 22:40
[2016-04-22] MEDS ORDERED: BARIUM SULF 2% 450 ML BTL (BERRY SMOOTHIE) PO ONE (23:00)
[2016-04-23] MEDS: HYDROmorphONE 0.2 MG/ML PCA IV SCH ×4 (00:52→19:48)
[2016-04-23 05:05] LABS: ADD SCAN DIFF NO
[2016-04-23 05:20] LABS: POTASSIUM 3.6 mmol/L (3.5-5.1)
[2016-04-23 05:23] LABS: CREATININE 0.61 mg/dl (0.44-1.00)
[2016-04-23 05:24] LABS: CALCIUM 7.1 mg/dl (8.4-10.2)
[2016-04-23 05:25] LABS: ABNORMAL IP MESSAGE 1; BASOPHILS % 0.1 % (0.0-2.0); EOSINOPHILS # 0.1 10^3/ul (0.0-0.5); HEMATOCRIT 23.5 % (37.0-47.0); HEMOGLOBIN 7.6 g/dl (12.0-16.0); LYMPHOCYTES % 11.1 % (15.0-51.0); MEAN CORPUSCULAR HEMOGLOBIN 29.9 pg (29.0-33.0); MEAN CORPUSCULAR HGB CONC 32.3 g/dl (32.0-37.0); MEAN CORPUSCULAR VOLUME 92.5 fl (82.0-101.0); MEAN PLATELET VOLUME 12.3 fl (7.4-10.4); MONOCYTE # 0.7 10^3/ul (0.3-0.9); MONOCYTES % 7.6 % (0.0-11.0); NEUTROPHIL # 7.1 10^3/ul (1.6-7.5); NEUTROPHILS % 79.5 % (39.0-77.0); PLATELET COUNT 83 10^3/UL (140-415); RED BLOOD COUNT 2.54 10^6/ul (4.20-5.40); RED CELL DISTRIBUTION WIDTH 16.2 % (11.5-14.5); WHITE BLOOD COUNT 8.9 10^3/ul (4.8-10.8)
[2016-04-23] MEDS: metroNIDAZOLE 500 MG/NS (PMX) 100 ML IVPB SCH ×3 (05:59→21:29)
[2016-04-23] MEDS: PANTOPRAZOLE 40 MG INJ IV SCH (06:02)
[2016-04-23] MEDS: METOCLOPRAMIDE 10 MG INJ IV SCH ×3 (06:02→21:28)
[2016-04-23] MEDS: FUROSEMIDE 20 MG INJ IV SCH ×2 (06:04→18:32)
[2016-04-23] MEDS: ONDANSETRON INJ 8 MG in DEXTROSE 5% 50 ML IV PRN (07:04)
[2016-04-23 08:39] VITALS: BP 99/68; RESP 18
[2016-04-23] MEDS: ACCU-CHEK XX SCH ×2 (09:22→21:31)
[2016-04-23] MEDS: TPN 1,000 ML IV SCH ×2 (10:51→22:25)
--- NOTE | 2016-04-23 11:33 | CONS ---
Date/Time of Note Date/Time of Note DATE: 04/23/16 TIME: 11:30 Assessment/Plan Assessment/Plan Chief Complaint/Hosp Course 61-year-old female with stage IIIB ovarian cancer s/p surgery by Dr. Johnston in May 2015 and 6 cycles of carbo/taxol with persistently elevated CA125 (now 39.6), recently admitted to outside hospital with CT concerning for persistent disease. Recent PET/CT 03-26-16 showed progressive disease with pelvic ascites and increased omental caking and peritoneal nodularity noted throughout the abdomen and pelvis consistent with progressive recurrent ovarian carcinoma. Pt is now s/p optimal CRS for recurrent disease on 04/08. She was left with < 5mm of residual disease. She now has increased drainage from the wound site and the wound is open - appreciate Dr. Dave's daily wound care. wound continues to be open and draining. to have repeat Ct A/P today to decide if patient can go to surgery - continue Levaquin 750mg IV q 24 hours + Flagyl 500mg q 8 hours ordered in case of an underlying infection - LE Doppler do not reveal evidence of DVT - cont post op care per surgery. pt is ambulating. continue TPN w lipids. pt to try clear liquid diet today - continue Zofran to 8mg IV q 6 prn nausea. nausea now under control - thrombocytopenia and anemia are likely secondary to post op blood loss. her cancer is also contributing to her anemia. Platelets are coming up. blood transfusion is ordered for today - continue lasix - plan to start adjuvant chemotherapy in house when cleared by [facility] onc. plan to give 1 dose of Gemcitabine/ Cisplatin. Approximately 40 min were spent at patient's bedside and in coordination of her care Problems: Consultation Date/Type/Reason Admit Date/Time Apr 02, 2016 at 10:07 Initial Consult Date 04/02/16 Type of Consultation: Hematology/Oncology Reason for Consultation ovarian cancer Referring Provider: BRIAN ZAZUETA MD 24 HR Interval Summary Free Text/Dictation pt is very weak this morning. not tolerating po's. not ambulating. to have repeat CT today. Exam/Review of Systems Vital Signs Vitals Vital Signs Date Time Temp Pulse Resp B/P Pulse Ox O2 Delivery O2 Flow Rate FiO2 04/23/16 08:39 98.2 70 18 99/68 93 04/22/16 20:50 Nasal Cannula 3.0 Intake and Output 04/22/16 04/22/16 04/23/16 15:00 23:00 07:00 Intake Total 350 ml 1095 ml Output Total 1030 ml 1330 ml Balance -680 ml -235 ml Exam Constitutional: distress, frail, oriented Psych: anxiety, no complaints Head: normocephalic Eyes: nl conjunctiva ENMT: nl external ears & nose Neck: non-tender, supple Respiratory: clear to auscultation, normal air movement Cardiovascular: other (tachycardic) Gastrointestinal: other (ascites draining from surgical wound), surgical scars Musculoskeletal: swelling Results Result Diagram: 04/23/16 0420 04/23/16 0420 Results 24 hrs Laboratory Tests Test 04/22/16 20:52 04/23/16 04:20 04/23/16 09:12 04/23/16 09:13 Bedside Glucose 118 130 Anion Gap 12 Basophils # 0.0 Basophils % 0.1 Blood Urea Nitrogen 20 Calcium Level 7.1 L Carbon Dioxide Level 25 Chloride Level 103 Creatinine 0.61 Eosinophils # 0.1 Eosinophils % 1.0 Glucose Level 124 Hematocrit 23.5 L Hemoglobin 7.6 L Lymphocytes # 1.0 Lymphocytes % 11.1 L Mean Corpuscular Hemoglobin 29.9 Mean Corpuscular Hemoglobin Concent 32.3 Mean Corpuscular Volume 92.5 Mean Platelet Volume 12.3 H Monocytes # 0.7 Monocytes % 7.6 Neutrophils # 7.1 Neutrophils % 79.5 H Nucleated Red Blood Cells # 0.0 Nucleated Red Blood Cells % 0.0 Platelet Count 83 L Potassium Level 3.6 Red Blood Count 2.54 L Red Cell Distribution Width 16.2 H Sodium Level 136 White Blood Count 8.9 Lab Scanned Report REFERENCE LAB Medications Medications Current Medications Acetaminophen/ Hydrocodone Bitart ([place] (5/325)) 1 tab Q6H PRN PO MODERATE PAIN LEVEL 4-6 Last administered on 04/14/16 14:49; Admin Dose 1 TAB; Start at 18:00 Zolpidem Tartrate (Ambien) 5 mg HS PRN PO INSOMNIA Last administered on 23:48; Admin Dose 5 MG; Start 04/01/16 at 22:00 Diphenhydramine HCl (Benadryl) 25 mg Q6H PRN PO ITCHING Last administered on 06:49; Admin Dose 25 MG; Start 04/02/16 at 07:00 Al Hydrox/Mg Hydrox/Simethicone (Mag-Al Plus) 30 ml Q6H PRN PO GASTROINTESTINAL UPSET Last administered on 04/06/16 19:40; Admin Dose 30 ML; Start 04/02/16 at 17:30 Simethicone (Mylicon) 80 mg Q6 PO Last administered on 04/23/16 06:02; Admin Dose 80 MG; Start 04/02/16 at 18:00 Clonidine HCl 1 patch 1 patch Q7D TRANSDERM Last administered on 04/18/16 12: 43; Admin Dose 1 PATCH; Start 04/04/16 at 13:15 Albumin Human (Alburx) 500 ml @ 250 mls/hr ONCE PRN IVPB U/O BELOW 30 ML/HR X 2 HR; Start 04/07/16 at 22:30 Pantoprazole (Protonix Iv) 40 mg DAILY@06 IV Last administered on 04/23/16 06: 02; Admin Dose 40 MG; Start 04/08/16 at 06:00 Hydromorphone HCl (Dilaudid ORE MINER) 0.3 MG/HR CONTINUOUS 0.3... Q4PCA IV Last administered on 04/23/16 07:18; Admin Dose 6 MG; Start 04/12/16 at 18:00 Hydralazine HCl 10 mg 10 mg Q4H PRN IV HTN Last administered on 04/16/16 08:30 ; Admin Dose 10 MG; Start 04/13/16 at 20:00 Ondansetron HCl 8 mg/Dextrose 54 ml @ 108 mls/hr Q6H PRN IV NAUSEA AND/OR VOMITING Last administered on 04/23/16 07:04; Admin Dose 108 MLS/HR; Start 04/15 at 12:30 Fat Emulsion Intravenous 250 ml @ 31.25 mls/ hr Q24H IV Last administered on 18:00; Admin Dose 31.25 MLS/HR; Start 04/15/16 at 18:00 Total Parenteral Nutrition (Tpn) 1,000 ml @ 65 mls/hr [id number] IV Last administered on 04/23/16 10:51; Admin Dose 65 MLS/HR; Start 04/16/16 at 06:01 Diagnostic Test (Pha) (Accucheck) 1 ea Q12 XX Last administered on 04/23/16 09 :22; Admin Dose 1 EA; Start 04/18/16 at 09:00 Metoclopramide HCl 10 mg 10 mg Q8 IV Last administered on 04/23/16 06:02; Admin Dose 10 MG; Start 04/18/16 at 22:00 Levofloxacin/ Dextrose 150 ml @ 100 mls/hr Q24H IVPB Last administered on 04/22 15:47; Admin Dose 100 MLS/HR; Start 04/20/16 at 14:00 Metronidazole (Flagyl 500 Mg (Pmx)) 100 ml @ 100 mls/hr Q8 IVPB Last administered on 04/23/16 05:59; Admin Dose 100 MLS/HR; Start 04/20/16 at 13:00 Lidocaine (Xylocaine 1% (Mpf)) 30 ml ONCE PRN INJ PAIN AND OR ELEVATED TEMP; Start 04/21/16 at 00:00 Lorazepam (Ativan) 1 mg Q6H PRN IV ANXIETY Last administered on 04/22/16 22:49 ; Admin Dose 1 MG; Start 04/21/16 at 18:11 DEMETRA COLUNGA M.D. Apr 23, 2016 11:33
[2016-04-23 12:00] VITALS: BP 118/75; PULSE 90; RESP 15
[2016-04-23] MEDS: LORAZEPAM 2 MG INJ IV PRN (13:59)
[2016-04-23] MEDS: LEVOFLOXACIN 750MG/D5W (PMX) 150 ML IVPB SCH (14:10)
--- NOTE | 2016-04-23 14:23 | PN ---
Date/Time of Note Date/Time of Note DATE: 04/23/16 TIME: 14:22 Assessment/Plan Lines/Catheters IV Catheter Type (from Nrs): Peripheral IV Urinary Cath still in place: Yes Assessment/Plan Assessment/Plan - Progressive recurrent ovarian carcinoma. Status post chemotherapy. Dr. Foy is following in hematology/oncology consultation. Dr. Johnston is following from a surgery standpoint. S/p bowel resection 04/07. Continue follow -up per general surgery recommendations. Continue TPN and lipids. Patient has significant amount of drainage from incision started on Levaquin and Flagyl. - Multiple loculated fluid collections per CT of the abdomen, continue to follow up surgical recommendations - Intractable abdominal pain and nausea secondary to #1, resolved. Continue TILT TRAY DRIVER Dilaudid. Dr. Green is asked to see patient in pain management consultation. - Bilateral lower extremities edema, ultrasound is negative for DVT, continue Lasix, monitor electrolytes. Continue Lovenox for deep venous thrombosis prophylaxis and Protonix for peptic ulcer disease prophylaxis. Further recommendations based on clinical course. Plan of care was discussed with Dr. Bravo. Exam/Review of Systems Vital Signs Vitals Vital Signs Date Time Temp Pulse Resp B/P Pulse Ox O2 Delivery O2 Flow Rate FiO2 04/23/16 12:00 97.2 90 15 118/75 96 Room Air 04/22/16 20:50 3.0 Intake and Output 04/22/16 04/22/16 04/23/16 15:00 23:00 07:00 Intake Total 350 ml 1095 ml Output Total 1030 ml 1330 ml Balance -680 ml -235 ml Results Result Diagram: 04/23/16 0420 04/23/16 042 Results 24 hrs Laboratory Tests Test 04/22/16 20:52 04/23/16 04:20 04/23/16 09:12 04/23/16 09:13 Bedside Glucose 118 130 Anion Gap 12 Basophils # 0.0 Basophils % 0.1 Blood Urea Nitrogen 20 Calcium Level 7.1 L Carbon Dioxide Level 25 Chloride Level 103 Creatinine 0.61 Eosinophils # 0.1 Eosinophils % 1.0 Glucose Level 124 Hematocrit 23.5 L Hemoglobin 7.6 L Lymphocytes # 1.0 Lymphocytes % 11.1 L Mean Corpuscular Hemoglobin 29.9 Mean Corpuscular Hemoglobin Concent 32.3 Mean Corpuscular Volume 92.5 Mean Platelet Volume 12.3 H Monocytes # 0.7 Monocytes % 7.6 Neutrophils # 7.1 Neutrophils % 79.5 H Nucleated Red Blood Cells # 0.0 Nucleated Red Blood Cells % 0.0 Platelet Count 83 L Potassium Level 3.6 Red Blood Count 2.54 L Red Cell Distribution Width 16.2 H Sodium Level 136 White Blood Count 8.9 Lab Scanned Report REFERENCE LAB Medications Medications Current Medications Acetaminophen/ Hydrocodone Bitart ([place] (5/325)) 1 tab Q6H PRN PO MODERATE PAIN LEVEL 4-6 Last administered on 04/14/16 14:49; Admin Dose 1 TAB; Start at 18:00 Zolpidem Tartrate (Ambien) 5 mg HS PRN PO INSOMNIA Last administered on 23:48; Admin Dose 5 MG; Start 04/01/16 at 22:00 Diphenhydramine HCl (Benadryl) 25 mg Q6H PRN PO ITCHING Last administered on 06:49; Admin Dose 25 MG; Start 04/02/16 at 07:00 Al Hydrox/Mg Hydrox/Simethicone (Mag-Al Plus) 30 ml Q6H PRN PO GASTROINTESTINAL UPSET Last administered on 04/06/16 19:40; Admin Dose 30 ML; Start 04/02/16 at 17:30 Simethicone (Mylicon) 80 mg Q6 PO Last administered on 04/23/16 06:02; Admin Dose 80 MG; Start 04/02/16 at 18:00 Clonidine HCl 1 patch 1 patch Q7D TRANSDERM Last administered on 04/18/16 12: 43; Admin Dose 1 PATCH; Start 04/04/16 at 13:15 Albumin Human (Alburx) 500 ml @ 250 mls/hr ONCE PRN IVPB U/O BELOW 30 ML/HR X 2 HR; Start 04/07/16 at 22:30 Pantoprazole (Protonix Iv) 40 mg DAILY@06 IV Last administered on 04/23/16 06: 02; Admin Dose 40 MG; Start 04/08/16 at 06:00 Hydromorphone HCl (Dilaudid TILT TRAY DRIVER) 0.3 MG/HR CONTINUOUS 0.3... Q4PCA IV Last administered on 04/23/16 07:18; Admin Dose 6 MG; Start 04/12/16 at 18:00 Hydralazine HCl 10 mg 10 mg Q4H PRN IV HTN Last administered on 04/16/16 08:30 ; Admin Dose 10 MG; Start 04/13/16 at 20:00 Ondansetron HCl 8 mg/Dextrose 54 ml @ 108 mls/hr Q6H PRN IV NAUSEA AND/OR VOMITING Last administered on 04/23/16 07:04; Admin Dose 108 MLS/HR; Start 04/15 at 12:30 Fat Emulsion Intravenous 250 ml @ 31.25 mls/ hr Q24H IV Last administered on 18:00; Admin Dose 31.25 MLS/HR; Start 04/15/16 at 18:00 Total Parenteral Nutrition (Tpn) 1,000 ml @ 65 mls/hr [id number] IV Last administered on 04/23/16 10:51; Admin Dose 65 MLS/HR; Start 04/16/16 at 06:01 Diagnostic Test (Pha) (Accucheck) 1 ea Q12 XX Last administered on 04/23/16 09 :22; Admin Dose 1 EA; Start 04/18/16 at 09:00 Metoclopramide HCl 10 mg 10 mg Q8 IV Last administered on 04/23/16 14:10; Admin Dose 10 MG; Start 04/18/16 at 22:00 Levofloxacin/ Dextrose 150 ml @ 100 mls/hr Q24H IVPB Last administered on 04/23 14:10; Admin Dose 100 MLS/HR; Start 04/20/16 at 14:00 Metronidazole (Flagyl 500 Mg (Pmx)) 100 ml @ 100 mls/hr Q8 IVPB Last administered on 04/23/16 14:10; Admin Dose 100 MLS/HR; Start 04/20/16 at 13:00 Lidocaine (Xylocaine 1% (Mpf)) 30 ml ONCE PRN INJ PAIN AND OR ELEVATED TEMP; Start 04/21/16 at 00:00 Lorazepam (Ativan) 1 mg Q6H PRN IV ANXIETY Last administered on 04/23/16 13:59 ; Admin Dose 1 MG; Start 04/21/16 at 18:11 BLAKE BRUMFIELD Apr 23, 2016 14:22
[2016-04-23] MEDS ORDERED: IODIXANOL LOCM 100 ML BTL ONE (14:52)
[2016-04-23] MEDS ORDERED: SOD CHLORIDE 0.9% 100 ML ONE (14:52)
[2016-04-23 16:00] VITALS: BP 114/75; PULSE 85; RESP 16
[2016-04-23] MEDS: FAT EMULSION 20% 250 ML IV SCH (18:32)
--- NOTE | 2016-04-23 18:49 | RADRPT ---
PROCEDURE: CT abdomen and pelvis with contrast. CLINICAL INDICATION: Abdominal pain. Clinical concern for bowel leakage. TECHNIQUE: CT scan of the abdomen and pelvis with contrast was performed. Coronal and sagittal im ages were also reformatted. 100 cc Visipaque 320 intravenous contrast was administered without comp lication. Oral contrast media was also utilized. Total exam CTDIvol = 19.04 mGy and DLP = 1074.41 mG y-cm. COMPARISON: CT 05/22/2016 FINDINGS: Visualized lower thorax: Compressive atelectasis of the lower lobes is again noted, not significantl y changed. Moderate size bilateral dependent pleural effusions are again noted. A small to moderat e pericardial effusion appears stable. Liver, gallbladder, pancreas and spleen: Overall hepatic size and attenuation are normal but there are hypodense capsular type implanted cannot exclude metastatic foci. There is no ductal dilatation are evidence of solid liver mass. A cystic lesion within the inferior right hepatic lobe is sugges fany. Cholelithiasis and gallbladder sludge are again suggested without evidence of cholecystitis. No common bile duct dilatation is evident. The pancreas is normal. The spleen is normal, not enlar ged. Adrenal glands and genitourinary system: The adrenal glands are normal bilaterally. Symmetric enhan cement of the kidneys is noted the left kidney is unremarkable but the right kidney shows stable mod erate hydronephrosis. Mild dilatation of the proximal right ureter is again seen with normal-calibe r of the mid and distal right ureter, the left ureter is unremarkable and no calculi are visible. T he urinary bladder is now contracted around a Calvo catheter. The uterus is not visualized presumab ly surgically removed. No ovarian or adnexal mass is present. Gastrointestinal system: A moderate sliding hiatal hernia containing enteric contrast media is pres ent, the remainder of the stomach is grossly normal and a dynamic ileus pattern with gas/fluid leve ls in the jejunum is similar to the previous examination without evidence of complete bowel obstruct ion. Medial and cephalad to the anastomotic sutures of the small bowel is an amorphous area of the extraluminal contrast media and gas that is most consistent with contrast extravasation and the clin ically suspected of bowel leakage, the size of the contrast puddling estimated at 2.5 x 1.1 x 2.3 cm in transverse, AP and cranial caudal dimensions respectively (series 3 image 92 - 97). A connectio n to the level of the anastomosis and bowel is best seen on the sagittal reconstructed images (serie s 600 image 269). Contrast media has reached the transverse colon there are changes suggesting a par tial distal colonic resection an anastomosis is proximal to the rectum with a gas/fluid level in the rectum but no evidence of a thickening. Presacral edema likely related to anasarca is similar t o the prior study Peritoneum, retroperitoneum, vessels and lymph nodes: The abdominal aorta is normal in caliber. Th ere is minimal aortic atherosclerotic calcification. Inferior vena cava is normal in caliber. Ther e is no evidence for adenopathy. Peripherally enhancing intraperitoneal collections are present mos t concerning for multiple abscesses the largest is in the left upper quadrant extending from the spl een along the left hepatic lobe and to a level just above the percutaneous drainage catheter, the si ze of the left peritoneal abscess estimated at 17 x 6.4 x 11 cm. Additional smaller abscesses withi n the greater and lesser sac are present. There is a fistulous tract extending from the low pattern talus at the anterior abdominal wall phoned into the right peritoneal cavity where there is an rufus tional abscess estimated at 7.7 x 2.4 cm (series 3 image 67). The distal tip of the percutaneous dr aijason catheter points inferiorly within the left lower quadrant of the abdomen and there is no fluid surrounding. A smaller pelvic abscess to the right of midline adjacent to the common iliac ve ssels is estimated at 3.7 x 2.8 cm (series 3 image 111). Osseous structures and musculoskeletal system: There is no evidence for acute osseous abnormality o r muscular pathology. Incidental degenerative disk disease at L4-5 is present. Severe anasarca patte rn of the subcutaneous tissues again noted. RPTAT:HJJR IMPRESSION: 1. Linear area of contrast extravasation along the medial and superior aspect of the small bowel an astomosis in the central lower abdomen confirms the clinical suspicion for a bowel leakage with extr aluminal and contained gas in the small bowel mesentery. 2. Multiple intraperitoneal abscesses are predominately cephalad to the existing percutaneous drain age catheter that terminates in the left lower quadrant. 3. Fistulous tract between the dehiscent anterior midline abdominal wound and a smaller right anter ior peritoneal cavity abscess. 4. Small perihepatic abscesses are present similar to the prior examination. 5. Adynamic ileus pattern without evidence of obstruction, enteric contrast media reaches the trans verse colon. 6. Distal colonic resection anastomosis again noted without evidence of extraluminal gas in this lo cation. 7. Bilateral pleural effusions, compressive atelectasis and pericardial effusion are unchanged. 8. Cholelithiasis with evidence of cholecystitis again demonstrated. 9. Right-sided hydroureteronephrosis likely related to extrinsic impression by retroperitoneal sarabjit a as no urinary tract calculi are evident. 10. Diffuse anasarca pattern is again seen. 11. Interval Calvo catheter placement. Physician Andrew Date Time Electronically viewed and signed by Physician Andrew on 04/23/2016 18:49 JR/
[2016-04-23 19:34] VITALS: BP 157/97; RESP 19
[2016-04-23 22:00] VITALS: BP 135/85; PULSE 113; RESP 17
--- NOTE | 2016-04-23 22:17 | PN ---
Date/Time of Note Date/Time of Note DATE: 04/23/16 TIME: 22:13 Assessment/Plan VTE Prophylaxis VTE Prophylaxis Intervention: SCD's Lines/Catheters IV [facility]ter Type (from [facility]): Peripheral IV Urinary Cath still in place: Yes Assessment/Plan Chief Complaint/Hosp Course Ovarian cancer with recurrence would benefit from secondary CRS even though persistent disease because the problem is her chemo was delayed 3 months postop. Informed of need to start chemo nathan postop and will call [facility] Problems: Subjective 24 Hr Interval Summary Free Text/Dictation Feels about the same with no increase in leakage but no flatus and most important CT completed and read late in day consistent with GI leakage, not likely to benefit from conservative management. Will transfuse and address mildly elevated PT/INR and do surgery later tomorrow when OR time available. Exam/Review of Systems Vital Signs Vitals Vital Signs Date Time Temp Pulse Resp B/P Pulse Ox O2 Delivery O2 Flow Rate FiO2 04/23/16 19:34 98.7 112 19 157/97 99 04/23/16 16:00 Nasal Cannula 04/22/16 20:50 3.0 Intake and Output 04/22/16 04/22/16 04/23/16 15:00 23:00 07:00 Intake Total 350 ml 1095 ml Output Total 1030 ml 1330 ml Balance -680 ml -235 ml Results Result Diagram: 04/23/16 0420 04/23/16 0420 Results 24 hrs Laboratory Tests Test 04/23/16 04:20 04/23/16 09:12 04/23/16 09:13 04/23/16 21:25 Anion Gap 12 Basophils # 0.0 Basophils % 0.1 Blood Urea Nitrogen 20 Calcium Level 7.1 L Carbon Dioxide Level 25 Chloride Level 103 Creatinine 0.61 Eosinophils # 0.1 Eosinophils % 1.0 Glucose Level 124 Hematocrit 23.5 L Hemoglobin 7.6 L Lymphocytes # 1.0 Lymphocytes % 11.1 L Mean Corpuscular Hemoglobin 29.9 Mean Corpuscular Hemoglobin Concent 32.3 Mean Corpuscular Volume 92.5 Mean Platelet Volume 12.3 H Monocytes # 0.7 Monocytes % 7.6 Neutrophils # 7.1 Neutrophils % 79.5 H Nucleated Red Blood Cells # 0.0 Nucleated Red Blood Cells % 0.0 Platelet Count 83 L Potassium Level 3.6 Red Blood Count 2.54 L Red Cell Distribution Width 16.2 H Sodium Level 136 White Blood Count 8.9 Bedside Glucose 130 110 Lab Scanned Report REFERENCE LAB Medications Medications Current Medications Acetaminophen/ Hydrocodone Bitart ([place] (5/325)) 1 tab Q6H PRN PO MODERATE PAIN LEVEL 4-6 Last administered on 04/14/16 14:49; Admin Dose 1 TAB; Start at 18:00 Zolpidem Tartrate (Ambien) 5 mg HS PRN PO INSOMNIA Last administered on 23:48; Admin Dose 5 MG; Start 04/01/16 at 22:00 Diphenhydramine HCl (Benadryl) 25 mg Q6H PRN PO ITCHING Last administered on 06:49; Admin Dose 25 MG; Start 04/02/16 at 07:00 Al Hydrox/Mg Hydrox/Simethicone (Mag-Al Plus) 30 ml Q6H PRN PO GASTROINTESTINAL UPSET Last administered on 04/06/16 19:40; Admin Dose 30 ML; Start 04/02/16 at 17:30 Simethicone (Mylicon) 80 mg Q6 PO Last administered on 04/23/16 18:32; Admin Dose 80 MG; Start 04/02/16 at 18:00 Clonidine HCl 1 patch 1 patch Q7D TRANSDERM Last administered on 04/18/16 12: 43; Admin Dose 1 PATCH; Start 04/04/16 at 13:15 Albumin Human (Alburx) 500 ml @ 250 mls/hr ONCE PRN IVPB U/O BELOW 30 ML/HR X 2 HR; Start 04/07/16 at 22:30 Pantoprazole (Protonix Iv) 40 mg DAILY@06 IV Last administered on 04/23/16 06: 02; Admin Dose 40 MG; Start 04/08/16 at 06:00 Hydromorphone HCl (Dilaudid BUSINESS CONTROLLER) 0.3 MG/HR CONTINUOUS 0.3... Q4PCA IV Last administered on 04/23/16 19:48; Admin Dose 6 MG; Start 04/12/16 at 18:00 Hydralazine HCl 10 mg 10 mg Q4H PRN IV HTN Last administered on 04/16/16 08:30 ; Admin Dose 10 MG; Start 04/13/16 at 20:00 Ondansetron HCl 8 mg/Dextrose 54 ml @ 108 mls/hr Q6H PRN IV NAUSEA AND/OR VOMITING Last administered on 04/23/16 07:04; Admin Dose 108 MLS/HR; Start 04/15 at 12:30 Fat Emulsion Intravenous 250 ml @ 31.25 mls/ hr Q24H IV Last administered on 18:32; Admin Dose 31.25 MLS/HR; Start 04/15/16 at 18:00 Total Parenteral Nutrition (Tpn) 1,000 ml @ 65 mls/hr [id number] IV Last administered on 04/23/16 10:51; Admin Dose 65 MLS/HR; Start 04/16/16 at 06:01 Diagnostic Test (Pha) (Accucheck) 1 ea Q12 XX Last administered on 04/23/16 21 :31; Admin Dose 1 EA; Start 04/18/16 at 09:00 Metoclopramide HCl 10 mg 10 mg Q8 IV Last administered on 04/23/16 21:28; Admin Dose 10 MG; Start 04/18/16 at 22:00 Levofloxacin/ Dextrose 150 ml @ 100 mls/hr Q24H IVPB Last administered on 04/23 14:10; Admin Dose 100 MLS/HR; Start 04/20/16 at 14:00 Metronidazole (Flagyl 500 Mg (Pmx)) 100 ml @ 100 mls/hr Q8 IVPB Last administered on 04/23/16 21:29; Admin Dose 100 MLS/HR; Start 04/20/16 at 13:00 Lidocaine (Xylocaine 1% (Mpf)) 30 ml ONCE PRN INJ PAIN AND OR ELEVATED TEMP; Start 04/21/16 at 00:00 Lorazepam 1 mg 1 mg Q6H PRN IV ANXIETY Last administered on 04/23/16 13:59; Admin Dose 1 MG; Start 04/21/16 at 18:11 Phytonadione/ Dextrose (Vitamin K/D5W) 51 ml @ 102 mls/hr ONCE ONCE IVPB ; Start 04/23/16 at 22:30; Stop 04/23/16 at 22:59 ANDI WADDELL MD Apr 23, 2016 22:17
[2016-04-23] MEDS ORDERED: PHYTONADIONE 10 MG in DEXTROSE 5% 50 ML IVPB ONE (22:30)
--- NOTE | 2016-04-23 22:38 | RADRPT ---
PROCEDURE: XR Chest. CLINICAL INDICATION: Nasogastric tube placement. TECHNIQUE: Portable AP semi erect view of the chest was obtained. COMPARISON: 04/01/2016 FINDINGS: The cardiomediastinal silhouette is within upper normal limits. Right greater than left lower lobe atelectasis is noted, worse compared to the prior study. Small left pleural effusion is noted witho ut pulmonary vascular congestion. The new nasogastric tube extends below the diaphragm of the dista l tip projecting in the mid stomach. Right-sided venous access device seen previously is unchanged in good position the tip in the region of the right atrium. The osseous structures are intact with no evidence for acute abnormality. RPTAT:HJJR IMPRESSION: 1. Distal tip of the nasogastric tube is within the mid stomach in good position for usage. 2. Interval development of left pleural effusion and left basilar atelectasis as compared to 2016. Physician Andrew Date Time Electronically viewed and signed by Physician Andrew on 04/23/2016 22:37 /
[2016-04-23] MEDS ORDERED: FUROSEMIDE 20 MG INJ IM SCH (22:45)
[2016-04-24] VITALS (10 sets, daily range): BP systolic 120–150; BP diastolic 74–94; PULSE 88–112; RESP 16–26
[2016-04-24] MEDS: HYDROmorphONE 0.2 MG/ML PCA IV SCH ×3 (01:07→14:42)
[2016-04-24] MEDS: ACCU-CHEK XX SCH ×2 (01:30→09:15)
[2016-04-24] MEDS: ONDANSETRON INJ 8 MG in DEXTROSE 5% 50 ML IV PRN (03:01)
[2016-04-24] MEDS: TPN 1,000 ML IV SCH (03:11)
[2016-04-24] MEDS: METOCLOPRAMIDE 10 MG INJ IV SCH (04:51)
[2016-04-24] MEDS: metroNIDAZOLE 500 MG/NS (PMX) 100 ML IVPB SCH (04:51)
[2016-04-24] MEDS: PANTOPRAZOLE 40 MG INJ IV SCH (05:52)
[2016-04-24] MEDS: FUROSEMIDE 20 MG INJ IV SCH (06:00)
[2016-04-24] MEDS ORDERED: FUROSEMIDE 20 MG INJ IV SCH (06:30)
[2016-04-24 09:18] LABS: ADD SCAN DIFF NO
[2016-04-24 09:27] LABS: ABNORMAL IP MESSAGE 1; BASOPHILS % 0.2 % (0.0-2.0); EOSINOPHILS # 0.1 10^3/ul (0.0-0.5); EOSINOPHILS % 1.2 % (0.0-7.0); HEMATOCRIT 34.8 % (37.0-47.0); HEMOGLOBIN 11.6 g/dl (12.0-16.0); LYMPHOCYTES % 11.7 % (15.0-51.0); MEAN CORPUSCULAR HEMOGLOBIN 29.6 pg (29.0-33.0); MEAN CORPUSCULAR HGB CONC 33.3 g/dl (32.0-37.0); MEAN CORPUSCULAR VOLUME 88.8 fl (82.0-101.0); MEAN PLATELET VOLUME 12.5 fl (7.4-10.4); MONOCYTE # 0.8 10^3/ul (0.3-0.9); MONOCYTES % 8.9 % (0.0-11.0); NEUTROPHIL # 6.7 10^3/ul (1.6-7.5); NEUTROPHILS % 77.3 % (39.0-77.0); RED BLOOD COUNT 3.92 10^6/ul (4.20-5.40); RED CELL DISTRIBUTION WIDTH 16.7 % (11.5-14.5); WHITE BLOOD COUNT 8.7 10^3/ul (4.8-10.8)
[2016-04-24 09:32] LABS: PLATELET COUNT 81 10^3/UL (140-415)
[2016-04-24 09:45] LABS: POTASSIUM 3.6 mmol/L (3.5-5.1)
[2016-04-24 09:47] LABS: CREATININE 0.67 mg/dl (0.44-1.00)
[2016-04-24 09:48] LABS: CALCIUM 7.5 mg/dl (8.4-10.2)
[2016-04-24 12:35] LABS: INR 1.57; PROTIME 18.9 Sec (12.2-14.2); PT RATIO 1.5
--- NOTE | 2016-04-24 13:22 | HPN ---
Date/Time of Note Date/Time of Note DATE: 04/24/16 TIME: 13:21 Interval H&P Admission Note Pt. seen H&P reviewed: No system changes ANDI WADDELL MD Apr 24, 2016 13:22
--- NOTE | 2016-04-24 13:45 | CONS ---
Date/Time of Note Date/Time of Note DATE: 04/24/16 TIME: 13:42 Assessment/Plan Assessment/Plan Chief Complaint/Hosp Course 61-year-old female with stage IIIB ovarian cancer s/p surgery by Dr. Johnston in May 2015 and 6 cycles of carbo/taxol with persistently elevated CA125 (now 39.6), recently admitted to outside hospital with CT concerning for persistent disease. Pt is now s/p optimal CRS for recurrent disease on 04/08. She was left with < 5mm of residual disease. She now has increased drainage from the wound site and the wound is open. Latest CT done yesterday is consistent with bowel leak - pt to have surgery today to repair bowel leak. surgical management per Dr. Dave - continue Levaquin 750mg IV q 24 hours + Flagyl 500mg q 8 hours ordered in case of an underlying infection - LE Doppler do not reveal evidence of DVT - cont post op care per surgery. pt is ambulating. continue TPN w lipids. pt to try clear liquid diet today - continue Zofran to 8mg IV q 6 prn nausea. nausea now under control - thrombocytopenia and anemia are likely secondary to post op blood loss. her cancer is also contributing to her anemia. Platelets are coming up. blood transfusion is ordered for today - continue lasix - plan to start adjuvant chemotherapy in house when cleared by [facility] onc. plan to give 1 dose of Gemcitabine/ Cisplatin. Approximately 40 min were spent at patient's bedside and in coordination of her care Problems: Consultation Date/Type/Reason Admit Date/Time Apr 02, 2016 at 10:07 Initial Consult Date 04/02/16 Type of Consultation: Hematology/Oncology Reason for Consultation ovarian cancer Referring Provider: BRIAN ZAZUETA MD 24 HR Interval Summary Free Text/Dictation pt found with bowel leak on CT. pt scheduled for surgery today with Dr. Dave Exam/Review of Systems Vital Signs Vitals Vital Signs Date Time Temp Pulse Resp B/P Pulse Ox O2 Delivery O2 Flow Rate FiO2 04/24/16 12:45 98.4 88 16 150/94 04/24/16 10:38 97 Nasal Cannula 2.0 Intake and Output 04/23/16 04/23/16 04/24/16 15:00 23:00 07:00 Intake Total 1531 ml 1119 ml Output Total 940 ml 1440 ml Balance 591 ml -321 ml Exam Constitutional: alert, distress, frail Psych: anxiety, depression Head: normocephalic Eyes: nl conjunctiva ENMT: nl external ears & nose Neck: non-tender, supple Respiratory: clear to auscultation Cardiovascular: regular rate and rhythm Gastrointestinal: other (draining from EMERITA drain and from wound), surgical scars Musculoskeletal: nl extremities to inspection Extremities: normal pulses Results Result Diagram: 04/24/16 0850 04/24/16 0850 Results 24 hrs Laboratory Tests Test 04/23/16 21:25 04/24/16 08:50 04/24/16 09:15 Bedside Glucose 110 129 Activated Partial Thromboplast Time 39.2 H Anion Gap 10 Basophils # 0.0 Basophils % 0.2 Blood Urea Nitrogen 21 H Calcium Level 7.5 L Carbon Dioxide Level 26 Chloride Level 104 Creatinine 0.67 Eosinophils # 0.1 Eosinophils % 1.2 Glucose Level 148 Hematocrit 34.8 #L Hemoglobin 11.6 #L INR International Normalized Ratio 1.57 Lymphocytes # 1.0 Lymphocytes % 11.7 L Mean Corpuscular Hemoglobin 29.6 Mean Corpuscular Hemoglobin Concent 33.3 Mean Corpuscular Volume 88.8 Mean Platelet Volume 12.5 H Monocytes # 0.8 Monocytes % 8.9 Neutrophils # 6.7 Neutrophils % 77.3 H Nucleated Red Blood Cells # 0.0 Nucleated Red Blood Cells % 0.0 Platelet Count 81 L Potassium Level 3.6 Prothrombin Time 18.9 H Prothrombin Time Ratio 1.5 Red Blood Count 3.92 #L Red Cell Distribution Width 16.7 H Sodium Level 136 White Blood Count 8.7 Medications Medications Current Medications Acetaminophen/ Hydrocodone Bitart ([place] (5/325)) 1 tab Q6H PRN PO MODERATE PAIN LEVEL 4-6 Last administered on 04/14/16 14:49; Admin Dose 1 TAB; Start at 18:00 Zolpidem Tartrate (Ambien) 5 mg HS PRN PO INSOMNIA Last administered on 23:48; Admin Dose 5 MG; Start 04/01/16 at 22:00 Diphenhydramine HCl (Benadryl) 25 mg Q6H PRN PO ITCHING Last administered on 06:49; Admin Dose 25 MG; Start 04/02/16 at 07:00 Al Hydrox/Mg Hydrox/Simethicone (Mag-Al Plus) 30 ml Q6H PRN PO GASTROINTESTINAL UPSET Last administered on 04/06/16 19:40; Admin Dose 30 ML; Start 04/02/16 at 17:30 Simethicone (Mylicon) 80 mg Q6 PO Last administered on 04/23/16 18:32; Admin Dose 80 MG; Start 04/02/16 at 18:00 Clonidine HCl 1 patch 1 patch Q7D TRANSDERM Last administered on 04/18/16 12: 43; Admin Dose 1 PATCH; Start 04/04/16 at 13:15 Albumin Human (Alburx) 500 ml @ 250 mls/hr ONCE PRN IVPB U/O BELOW 30 ML/HR X 2 HR; Start 04/07/16 at 22:30 Pantoprazole (Protonix Iv) 40 mg DAILY@06 IV Last administered on 04/24/16 05: 52; Admin Dose 40 MG; Start 04/08/16 at 06:00 Hydromorphone HCl (Dilaudid INSPECTOR BALL POINTS) 0.3 MG/HR CONTINUOUS 0.3... Q4PCA IV Last administered on 04/24/16 07:51; Admin Dose 6 MG; Start 04/12/16 at 18:00 Hydralazine HCl 10 mg 10 mg Q4H PRN IV HTN Last administered on 04/16/16 08:30 ; Admin Dose 10 MG; Start 04/13/16 at 20:00 Ondansetron HCl 8 mg/Dextrose 54 ml @ 108 mls/hr Q6H PRN IV NAUSEA AND/OR VOMITING Last administered on 04/24/16 03:01; Admin Dose 108 MLS/HR; Start 04/15 at 12:30 Fat Emulsion Intravenous 250 ml @ 31.25 mls/ hr Q24H IV Last administered on 18:32; Admin Dose 31.25 MLS/HR; Start 04/15/16 at 18:00 Total Parenteral Nutrition (Tpn) 1,000 ml @ 65 mls/hr [id number] IV Last administered on 04/24/16 03:11; Admin Dose 65 MLS/HR; Start 04/16/16 at 06:01 Diagnostic Test (Pha) (Accucheck) 1 ea Q12 XX Last administered on 04/24/16 09 :15; Admin Dose 1 EA; Start 04/18/16 at 09:00 Metoclopramide HCl 10 mg 10 mg Q8 IV Last administered on 04/24/16 04:51; Admin Dose 10 MG; Start 04/18/16 at 22:00 Levofloxacin/ Dextrose 150 ml @ 100 mls/hr Q24H IVPB Last administered on 04/23 14:10; Admin Dose 100 MLS/HR; Start 04/20/16 at 14:00 Metronidazole (Flagyl 500 Mg (Pmx)) 100 ml @ 100 mls/hr Q8 IVPB Last administered on 04/24/16 04:51; Admin Dose 100 MLS/HR; Start 04/20/16 at 13:00 Lidocaine (Xylocaine 1% (Mpf)) 30 ml ONCE PRN INJ PAIN AND OR ELEVATED TEMP; Start 04/21/16 at 00:00 Lorazepam (Ativan) 1 mg Q6H PRN IV ANXIETY Last administered on 04/23/16 13:59 ; Admin Dose 1 MG; Start 04/21/16 at 18:11 DEMETRA COLUNGA M.D. Apr 24, 2016 13:45
[2016-04-24 13:56] LABS: ALBUMIN 1.7 g/dl (3.3-4.9)
[2016-04-24 13:59] LABS: BILIRUBIN,INDIRECT 0.9 mg/dl (0-1.1); BILIRUBIN,TOTAL 0.9 mg/dl (0.2-1.3); TOTAL PROTEIN 4.7 g/dl (6.1-8.1)
--- NOTE | 2016-04-24 14:19 | PN ---
Date/Time of Note Date/Time of Note DATE: 04/24/16 TIME: 14:09 Assessment/Plan VTE Prophylaxis VTE Prophylaxis Intervention: SCD's Lines/Catheters IV Catheter Type (from Nrs): Peripheral IV Central line still needed: Yes Urinary Cath still in place: Yes Reason Cath still needed: urinary retention Assessment/Plan Chief Complaint/Hosp Course ASSESSMENT AND PLAN: - Progressive recurrent ovarian carcinoma. Status post chemotherapy. Dr. Foy is following in hematology/oncology consultation. Dr. Johnston is following from a surgery standpoint. S/p bowel resection 04/07. Continue follow -up per general surgery recommendations. Continue TPN and lipids. Patient has significant amount of drainage from incision started on Levaquin and Flagyl. - Multiple loculated fluid collections per CT of the abdomen, continue to follow up surgical recommendations - Intractable abdominal pain and nausea secondary to #1, resolved. Continue BOOK EDITOR Dilaudid. Dr. Green is asked to see patient in pain management consultation. - Bilateral lower extremities edema, ultrasound is negative for DVT, continue Lasix, monitor electrolytes. Continue Lovenox for deep venous thrombosis prophylaxis and Protonix for peptic ulcer disease prophylaxis. Further recommendations based on clinical course. Plan of care was discussed with Dr. Bravo. Problems: Subjective 24 Hr Interval Summary Free Text/Dictation Patient is undergoing blood products transfusion, pain is well controlled, plan for surgery today to repair bowel leak. Exam/Review of Systems Vital Signs Vitals Vital Signs Date Time Temp Pulse Resp B/P Pulse Ox O2 Delivery O2 Flow Rate FiO2 04/24/16 12:45 98.4 88 16 150/94 04/24/16 10:38 97 Nasal Cannula 2.0 Intake and Output 04/23/16 04/23/16 04/24/16 15:00 23:00 07:00 Intake Total 1531 ml 1119 ml Output Total 940 ml 1440 ml Balance 591 ml -321 ml Exam PHYSICAL ASSESSMENT: GENERAL: Well-developed, well-nourished female currently is awake, alert. HEENT: Head is atraumatic, normocephalic. NGT to LWS. NECK: Supple, no cervical lymphadenopathy, no thyromegaly. CHEST: Lungs clear bilaterally. There is no rhonchi, wheezes, rales noted. CARDIOVASCULAR: Normal S1, S2. No murmurs, gallops, clicks, rubs noted. ABDOMEN: Round, soft, s/p surgery with midline incision, EMERITA. SKIN: There is no rash, petechiae noted. EXTREMITIES: No edema, clubbing, cyanosis. Pulses equal bilaterally 2+. Mild edema. SKIN: There is no rash or petechiae noted. NEUROLOGICAL: The patient is awake, alert and oriented x4. Results Result Diagram: 04/24/16 0850 04/24/16 0850 Results 24 hrs Laboratory Tests Test 04/23/16 21:25 04/24/16 08:50 04/24/16 09:15 Bedside Glucose 110 129 Activated Partial Thromboplast Time 39.2 H Alanine Aminotransferase (ALT/SGPT) 26 Albumin 1.7 L Alkaline Phosphatase 187 H Anion Gap 10 Aspartate Amino Transf (AST/SGOT) 28 Basophils # 0.0 Basophils % 0.2 Blood Urea Nitrogen 21 H Calcium Level 7.5 L Carbon Dioxide Level 26 Chloride Level 104 Creatinine 0.67 Direct Bilirubin 0.00 Eosinophils # 0.1 Eosinophils % 1.2 Glucose Level 148 Hematocrit 34.8 #L Hemoglobin 11.6 #L INR International Normalized Ratio 1.57 Indirect Bilirubin 0.9 Lymphocytes # 1.0 Lymphocytes % 11.7 L Mean Corpuscular Hemoglobin 29.6 Mean Corpuscular Hemoglobin Concent 33.3 Mean Corpuscular Volume 88.8 Mean Platelet Volume 12.5 H Monocytes # 0.8 Monocytes % 8.9 Neutrophils # 6.7 Neutrophils % 77.3 H Nucleated Red Blood Cells # 0.0 Nucleated Red Blood Cells % 0.0 Platelet Count 81 L Potassium Level 3.6 Prothrombin Time 18.9 H Prothrombin Time Ratio 1.5 Red Blood Count 3.92 #L Red Cell Distribution Width 16.7 H Sodium Level 136 Total Bilirubin 0.9 Total Protein 4.7 L White Blood Count 8.7 Medications Medications Current Medications Acetaminophen/ Hydrocodone Bitart ([place] (5/325)) 1 tab Q6H PRN PO MODERATE PAIN LEVEL 4-6 Last administered on 04/14/16 14:49; Admin Dose 1 TAB; Start at 18:00 Zolpidem Tartrate (Ambien) 5 mg HS PRN PO INSOMNIA Last administered on 23:48; Admin Dose 5 MG; Start 04/01/16 at 22:00 Diphenhydramine HCl (Benadryl) 25 mg Q6H PRN PO ITCHING Last administered on 06:49; Admin Dose 25 MG; Start 04/02/16 at 07:00 Al Hydrox/Mg Hydrox/Simethicone (Mag-Al Plus) 30 ml Q6H PRN PO GASTROINTESTINAL UPSET Last administered on 04/06/16 19:40; Admin Dose 30 ML; Start 04/02/16 at 17:30 Simethicone (Mylicon) 80 mg Q6 PO Last administered on 04/23/16 18:32; Admin Dose 80 MG; Start 04/02/16 at 18:00 Clonidine HCl 1 patch 1 patch Q7D TRANSDERM Last administered on 04/18/16 12: 43; Admin Dose 1 PATCH; Start 04/04/16 at 13:15 Albumin Human (Alburx) 500 ml @ 250 mls/hr ONCE PRN IVPB U/O BELOW 30 ML/HR X 2 HR; Start 04/07/16 at 22:30 Pantoprazole (Protonix Iv) 40 mg DAILY@06 IV Last administered on 04/24/16 05: 52; Admin Dose 40 MG; Start 04/08/16 at 06:00 Hydromorphone HCl (Dilaudid BOOK EDITOR) 0.3 MG/HR CONTINUOUS 0.3... Q4PCA IV Last administered on 04/24/16 07:51; Admin Dose 6 MG; Start 04/12/16 at 18:00 Hydralazine HCl 10 mg 10 mg Q4H PRN IV HTN Last administered on 04/16/16 08:30 ; Admin Dose 10 MG; Start 04/13/16 at 20:00 Ondansetron HCl 8 mg/Dextrose 54 ml @ 108 mls/hr Q6H PRN IV NAUSEA AND/OR VOMITING Last administered on 04/24/16 03:01; Admin Dose 108 MLS/HR; Start 04/15 at 12:30 Fat Emulsion Intravenous 250 ml @ 31.25 mls/ hr Q24H IV Last administered on 18:32; Admin Dose 31.25 MLS/HR; Start 04/15/16 at 18:00 Total Parenteral Nutrition (Tpn) 1,000 ml @ 65 mls/hr [id number] IV Last administered on 04/24/16 03:11; Admin Dose 65 MLS/HR; Start 04/16/16 at 06:01 Diagnostic Test (Pha) (Accucheck) 1 ea Q12 XX Last administered on 04/24/16 09 :15; Admin Dose 1 EA; Start 04/18/16 at 09:00 Metoclopramide HCl 10 mg 10 mg Q8 IV Last administered on 04/24/16 04:51; Admin Dose 10 MG; Start 04/18/16 at 22:00 Levofloxacin/ Dextrose 150 ml @ 100 mls/hr Q24H IVPB Last administered on 04/23 14:10; Admin Dose 100 MLS/HR; Start 04/20/16 at 14:00 Metronidazole (Flagyl 500 Mg (Pmx)) 100 ml @ 100 mls/hr Q8 IVPB Last administered on 04/24/16 04:51; Admin Dose 100 MLS/HR; Start 04/20/16 at 13:00 Lidocaine (Xylocaine 1% (Mpf)) 30 ml ONCE PRN INJ PAIN AND OR ELEVATED TEMP; Start 04/21/16 at 00:00 Lorazepam (Ativan) 1 mg Q6H PRN IV ANXIETY Last administered on 04/23/16 13:59 ; Admin Dose 1 MG; Start 04/21/16 at 18:11 LARRY MEJIA Apr 24, 2016 14:19
[2016-04-24 17:35] LABS: PLATELET COUNT 75 10^3/UL (140-440)
[2016-04-24 17:49] LABS: INR 1.37; PROTIME 16.9 Sec (12.2-14.2); PT RATIO 1.3
[2016-04-24 17:50] LABS: PARTIAL THROMBOPLASTIN TIME 37.1 Sec (25.0-35.0)
[2016-04-24] MEDS ORDERED: METHYLENE BLUE 10 MG/ML VIAL ONE (18:05)
[2016-04-24 18:41] LABS: THROMBIN TIME 14.7 SEC (13.8-19.1)
[2016-04-24 19:15] LABS: D-DIMER > 10000.00 ng/ml (<460)
[2016-04-24 19:20] LABS: FIBRIN SPLIT PRODUCT <10 ug/ml (<10)
[2016-04-24 20:32] LABS: AADO2 Arterial 380.2 mmHg (7.0-24.0); Allen Test ACCEPTAB; Arterial Base Excess -1.6 mmol/L (-3.0-3); Arterial COHb 0.3 % (0.0-3.0); Arterial Fraction of Oxyhgb 98.3 % (93.0-99.0); Arterial HCO3 22.3 mmol/L (22.0-26.0); Arterial MetHb 0.6 % (0.0-1.5); Arterial Total Hemglobin 9.4 g/dl (12.0-18.0); MODE VENT - AC
[2016-04-24 22:24] LABS: ADD SCAN DIFF NO
[2016-04-24 22:27] LABS: HEMOGLOBIN 9.5 g/dl (12.0-16.0); MEAN CORPUSCULAR HEMOGLOBIN 30.3 pg (29.0-33.0); MEAN CORPUSCULAR HGB CONC 33.9 g/dl (32.0-37.0); MEAN CORPUSCULAR VOLUME 89.2 fl (82.0-101.0); MEAN PLATELET VOLUME 9.8 fl (7.4-10.4); PLATELET COUNT 183 10^3/UL (140-415); RED BLOOD COUNT 3.14 10^6/ul (4.20-5.40); RED CELL DISTRIBUTION WIDTH 16.2 % (11.5-14.5)
[2016-04-24] MEDS ORDERED: DIPHENHYDRAMINE 50 MG INJ IV PRN (22:30)
[2016-04-24] MEDS ORDERED: HYDROmorphONE 1 MG/ML SYG IV PRN ×3 (22:30)
[2016-04-24] MEDS ORDERED: LABETALOL HCL 20MG INJ IV PRN (22:30)
[2016-04-24] MEDS ORDERED: hydrALAzine 20 MG INJ IV PRN (22:30)
[2016-04-24] MEDS ORDERED: METOCLOPRAMIDE 10 MG INJ IV PRN (22:30)
[2016-04-24] MEDS ORDERED: ONDANSETRON 4 MG INJ IV PRN (22:30)
[2016-04-24] MEDS ORDERED: MEPERIDINE 25 MG INJ IV PRN (22:30)
[2016-04-24 22:35] LABS: INR 1.33; POTASSIUM 3.4 mmol/L (3.5-5.1); PROTIME 16.6 Sec (12.2-14.2); PT RATIO 1.3
[2016-04-24 22:36] LABS: PARTIAL THROMBOPLASTIN TIME 34.7 Sec (25.0-35.0)
[2016-04-24 22:38] LABS: CREATININE 0.58 mg/dl (0.44-1.00)
[2016-04-24 22:39] LABS: CALCIUM 7.5 mg/dl (8.4-10.2)
[2016-04-24 23:03] LABS: EOSINOPHILS # 0.2 10^3/ul (0.0-0.5); HYPOCHROMASIA 1+; LYMPHOCYTES # 0.8 10^3/ul (0.8-2.9); MONOCYTE # 0.6 10^3/ul (0.3-0.9); NEUTROPHIL # 6.8 10^3/ul (1.6-7.5); PLATELET ESTIMATE PLT APPEAR ADEQUATE
[2016-04-25] VITALS (75 sets, daily range): BP systolic 115–175; BP diastolic 70–114; PULSE 82–121; RESP 14–29
[2016-04-25] MEDS: MIDAZOLAM (DRIP) 50 mg/50 mL 50 ML IV SCH ×5 (00:32→20:23)
[2016-04-25] MEDS: FENTAnyl (DRIP) 1000 mcg/100mL 100 ML IV SCH ×3 (00:33→17:40)
[2016-04-25] MEDS: hydrALAzine 20 MG INJ IV PRN (00:51)
[2016-04-25 02:00] LABS: ADD SCAN DIFF NO
[2016-04-25] MEDS ORDERED: HYDROmorphONE 1 MG/ML SYG IV PRN (02:00)
[2016-04-25 02:02] LABS: AADO2 Arterial 208.1 mmHg (7.0-24.0); Arterial Base Excess -0.2 mmol/L (-3.0-3); Arterial COHb 0.3 % (0.0-3.0); Arterial Fraction of Oxyhgb 98.6 % (93.0-99.0); Arterial HCO3 22.6 mmol/L (22.0-26.0); Arterial MetHb 0.4 % (0.0-1.5); Arterial Total Hemglobin 12.6 g/dl (12.0-18.0); MODE VENT - AC
[2016-04-25 02:03] LABS: BASOPHILS % 0.2 % (0.0-2.0); EOSINOPHILS % 0.2 % (0.0-7.0); HEMATOCRIT 33.1 % (37.0-47.0); HEMOGLOBIN 11.5 g/dl (12.0-16.0); LYMPHOCYTES # 0.7 10^3/ul (0.8-2.9); LYMPHOCYTES % 6.8 % (15.0-51.0); MEAN CORPUSCULAR HGB CONC 34.7 g/dl (32.0-37.0); MEAN CORPUSCULAR VOLUME 86.4 fl (82.0-101.0); MEAN PLATELET VOLUME 9.8 fl (7.4-10.4); MONOCYTE # 0.5 10^3/ul (0.3-0.9); MONOCYTES % 5.4 % (0.0-11.0); NEUTROPHIL # 8.3 10^3/ul (1.6-7.5); NEUTROPHILS % 86.5 % (39.0-77.0); PLATELET COUNT 184 10^3/UL (140-415); RED BLOOD COUNT 3.83 10^6/ul (4.20-5.40); RED CELL DISTRIBUTION WIDTH 16.1 % (11.5-14.5); WHITE BLOOD COUNT 9.6 10^3/ul (4.8-10.8)
[2016-04-25 02:18] LABS: ALBUMIN 2.6 g/dl (3.3-4.9); POTASSIUM 3.2 mmol/L (3.5-5.1)
[2016-04-25 02:20] LABS: BILIRUBIN,DIRECT 0.9 mg/dl (0.00-0.20); BILIRUBIN,INDIRECT 1.3 mg/dl (0-1.1); BILIRUBIN,TOTAL 2.2 mg/dl (0.2-1.3); CREATININE 0.59 mg/dl (0.44-1.00); INR 1.3; PROTIME 16.3 Sec (12.2-14.2); PT RATIO 1.3
[2016-04-25 02:21] LABS: ALBUMIN/GLOBULIN RATIO 0.76; CALCIUM 7.7 mg/dl (8.4-10.2)
--- NOTE | 2016-04-25 02:43 | RADRPT ---
PROCEDURE: XR Chest. CLINICAL INDICATION: Endotracheal intubation. TECHNIQUE: Single frontal view of the chest was obtained COMPARISON: 04/23/2016. FINDINGS: New endotracheal intubation is seen with tip about 47 mm above the jason. Right central venous ashia e again seen with tip in the superior vena cava versus superior vena cava right atrial junction. Na sogastric tube again seen with the side port in the distal esophagus, and recommend advancing same 5 -10 cm and re-imaging. Cardiac silhouette is unremarkable. Small left pleural effusion. Mild right lung base atelectasis and a degree of pulmonary vascular congestion and lungs otherwise substantially clear. No pneumothor ax. IMPRESSION: 1. New endotracheal intubation is seen with tip about 47 mm above the jason. 2. Nasogastric tube in place with tip in the stomach, but the side port is within the distal esopha ashlee. 3. Recommend advancing nasogastric tube about 5-10 cm and re-imaging. RPTAT: [facility] Physician Maria Date Time Electronically viewed and signed by Physician Maria on 04/25/2016 02:43 RS/
[2016-04-25] MEDS: HYDROmorphONE 2 MG/ML SYG IV PRN ×5 (03:25→21:22)
[2016-04-25] MEDS: LEVOFLOXACIN 750MG/D5W (PMX) 150 ML IVPB SCH (03:35)
[2016-04-25] MEDS: D5-LR + KCL 20 MEQ 1,000 ML IV SCH ×4 (05:02→18:44)
[2016-04-25 05:51] LABS: ADD SCAN DIFF NO
[2016-04-25] MEDS: PANTOPRAZOLE 40 MG INJ IV SCH (05:51)
[2016-04-25] MEDS: METOCLOPRAMIDE 10 MG INJ IV SCH ×4 (05:52→21:23)
[2016-04-25] MEDS: FUROSEMIDE 20 MG INJ IV SCH ×3 (05:52→17:44)
[2016-04-25] MEDS: metroNIDAZOLE 500 MG/NS (PMX) 100 ML IVPB SCH ×3 (05:52→21:26)
[2016-04-25 05:55] LABS: ABNORMAL IP MESSAGE 1; HEMATOCRIT 30.3 % (37.0-47.0); HEMOGLOBIN 10.2 g/dl (12.0-16.0); MEAN CORPUSCULAR HEMOGLOBIN 29.8 pg (29.0-33.0); MEAN CORPUSCULAR HGB CONC 33.7 g/dl (32.0-37.0); MEAN CORPUSCULAR VOLUME 88.6 fl (82.0-101.0); MEAN PLATELET VOLUME 10.7 fl (7.4-10.4); PLATELET COUNT 195 10^3/UL (140-415); RED BLOOD COUNT 3.42 10^6/ul (4.20-5.40); RED CELL DISTRIBUTION WIDTH 16.8 % (11.5-14.5); WHITE BLOOD COUNT 9.5 10^3/ul (4.8-10.8)
[2016-04-25 06:10] LABS: INR 1.29; PROTIME 16.2 Sec (12.2-14.2); PT RATIO 1.3
[2016-04-25 06:13] LABS: MAGNESIUM 1.6 mg/dl (1.7-2.5); PHOSPHORUS 3.5 mg/dl (2.5-4.9)
[2016-04-25 06:22] LABS: ALBUMIN 2.5 g/dl (3.3-4.9); POTASSIUM 3.6 mmol/L (3.5-5.1)
[2016-04-25 06:24] LABS: BILIRUBIN,DIRECT 0.6 mg/dl (0.00-0.20); BILIRUBIN,TOTAL 1.6 mg/dl (0.2-1.3); CREATININE 0.58 mg/dl (0.44-1.00)
[2016-04-25 06:25] LABS: ALBUMIN/GLOBULIN RATIO 0.86; CALCIUM 7.5 mg/dl (8.4-10.2); TOTAL PROTEIN 5.4 g/dl (6.1-8.1)
[2016-04-25] MEDS: ACCU-CHEK XX SCH ×2 (09:00→21:26)
[2016-04-25 10:17] LABS: EOSINOPHILS # 0.1 10^3/ul (0.0-0.5); LYMPHOCYTES # 0.5 10^3/ul (0.8-2.9); MONOCYTE # 0.4 10^3/ul (0.3-0.9); NEUTROPHIL # 8.3 10^3/ul (1.6-7.5)
--- NOTE | 2016-04-25 10:53 | PN ---
Date/Time of Note Date/Time of Note DATE: 04/25/16 TIME: 10:52 Assessment/Plan VTE Prophylaxis VTE Prophylaxis Intervention: other Lines/Catheters IV Catheter Type (from Nrsg): Peripheral IV Urinary Cath still in place: Yes Reason Cath still needed: skin wounds contaminated by urine Assessment/Plan Chief Complaint/Hosp Course - Progressive recurrent ovarian carcinoma. Status post chemotherapy. Dr. Foy is following in hematology/oncology consultation. Dr. Johnston is following from a surgery standpoint. S/p bowel resection 04/07. Continue follow -up per general surgery recommendations. Continue TPN and lipids. Patient has significant amount of drainage from incision started on Levaquin and Flagyl. - Multiple loculated fluid collections per CT of the abdomen, continue to follow up surgical recommendations - Intractable abdominal pain and nausea secondary to #1, resolved. Continue YOUTH COUNSELOR Dilaudid. Dr. Green is asked to see patient in pain management consultation. - Bilateral lower extremities edema, ultrasound is negative for DVT, continue Lasix, monitor electrolytes. Problems: Subjective 24 Hr Interval Summary Free Text/Dictation Patient remain sedated and intubated, will try to wean today Exam/Review of Systems Vital Signs Vitals Vital Signs Date Time Temp Pulse Resp B/P Pulse Ox O2 Delivery O2 Flow Rate FiO2 04/25/16 10:45 107 21 155/112 100 04/25/16 07:30 97.5 04/25/16 06:00 Mechanical Ventilator 04/25/16 05:36 50 04/24/16 10:38 2.0 Intake and Output 04/24/16 04/24/16 04/25/16 15:00 23:00 07:00 Intake Total 450 ml 949 ml 845 ml Output Total 1800 ml 2425 ml Balance -1350 ml 949 ml -1580 ml Exam Constitutional: well developed Head: atraumatic, normocephalic Neck: supple Respiratory: diminished breath sounds Cardiovascular: regular rate and rhythm Gastrointestinal: non-tender, soft Results Result Diagram: 04/25/16 0515 04/25/16 0515 Results 24 hrs Laboratory Tests Test 04/24/16 17:20 04/24/16 19:49 04/24/16 22:19 04/25/16 01:35 Activated Partial Thromboplast Time 37.1 H 34.7 D-Dimer > 07426.00 H Fibrinogen 347.0 INR International Normalized Ratio 1.37 1.33 Plasma Fibrin Degradation Products <10 Platelet Count 75 L 183 # Prothrombin Time 16.9 H 16.6 H Prothrombin Time Ratio 1.3 1.3 Thrombin Time 14.7 Arterial Blood HCO3 22.3 22.6 Arterial Blood Base Excess -1.6 -0.2 Arterial Blood Oxygen Saturation 99.2 H 99.3 H Duran Test ACCEPTAB N/A Arterial Blood Gas Puncture Site Right Radial A-Line Arterial Blood Carboxyhemoglobin 0.3 0.3 Arterial Blood Date Drawn 04/24/2016 8:20:48 PM 04/25/2016 1:45:21 AM Arterial Blood Methemoglobin 0.6 0.4 Arterial Blood pCO2 (Temp correct) 34.5 L 31.3 L Arterial Blood pH (Temp corrected) 7.429 7.476 H Arterial Blood pO2 (Temp corrected) 298.3 H 329.4 H Blood Gas A-a O2 Differential 380.2 H 208.1 H Blood Gas Actual Respiration Rate 12 16 Blood Gas Inspiratory Pressure 28.0 27.0 Blood Gas Modality VENT - AC VENT - AC Blood Gas Notified Time 04/24/2016 8:32:15 PM 04/25/2016 2:02:36 AM Blood Gas Notified Whom KM KM Blood Gas Respiration Rate 12.0 14.0 Blood Gas Specimen Source Blood arterial Blood arterial Blood Gas Temperature 37.0 37.0 Blood Gas Tidal Volume 500.0 500.0 FiO2 100.0 80.0 Oxyhemoglobin Percent 98.3 98.6 Total Hemoglobin 9.4 L 12.6 Anion Gap 12 Band Neutrophils % 3.0 Blood Urea Nitrogen 18 Calcium Level 7.5 L Carbon Dioxide Level 24 Chloride Level 105 Creatinine 0.58 Eosinophils # 0.2 Eosinophils % 2.0 Glucose Level 112 Hematocrit 28.0 L Hemoglobin 9.5 L Hypochromasia 1+ Lymphocytes # 0.8 Lymphocytes % 9.0 L Mean Corpuscular Hemoglobin 30.3 Mean Corpuscular Hemoglobin Concent 33.9 Mean Corpuscular Volume 89.2 Mean Platelet Volume 9.8 # Monocytes # 0.6 Monocytes % 7.0 Neutrophils # 6.8 Neutrophils % 76.0 Platelet Estimate PLT APPEAR ADEQUATE Potassium Level 3.4 L Reactive Lymphocytes % 3.0 Red Blood Count 3.14 L Red Cell Distribution Width 16.2 H Sodium Level 138 White Blood Count 9.0 Blood Gas Low PEEP Setting 5.0 Test 3/18/17 01:50 04/25/16 02:12 04/25/16 05:15 04/25/16 08:42 Alanine Aminotransferase (ALT/SGPT) 31 26 Albumin 2.6 L 2.5 L Albumin/Globulin Ratio 0.76 0.86 Alkaline Phosphatase 158 H 128 H Anion Gap 14 15 Aspartate Amino Transf (AST/SGOT) 30 30 Basophils # 0.0 Basophils % 0.2 Blood Urea Nitrogen 17 18 Calcium Level 7.7 L 7.5 L Carbon Dioxide Level 26 25 Chloride Level 102 102 Creatinine 0.59 0.58 Direct Bilirubin 0.90 #H 0.60 #H Eosinophils # 0.0 0.1 Eosinophils % 0.2 1.0 Fibrinogen 364.0 372.0 Globulin 3.40 H 2.90 Glucose Level 137 158 Hematocrit 33.1 L 30.3 L Hemoglobin 11.5 #L 10.2 L INR International Normalized Ratio 1.30 1.29 Indirect Bilirubin 1.3 H 1.0 Lymphocytes # 0.7 L 0.5 L Lymphocytes % 6.8 L 5.0 L Mean Corpuscular Hemoglobin 30.0 29.8 Mean Corpuscular Hemoglobin Concent 34.7 33.7 Mean Corpuscular Volume 86.4 88.6 Mean Platelet Volume 9.8 10.7 H Monocytes # 0.5 0.4 Monocytes % 5.4 4.0 Neutrophils # 8.3 H 8.3 H Neutrophils % 86.5 H 87.0 H Nucleated Red Blood Cells # 0.0 Nucleated Red Blood Cells % 0.0 Platelet Count 184 195 Potassium Level 3.2 L 3.6 Prothrombin Time 16.3 H 16.2 H Prothrombin Time Ratio 1.3 1.3 Red Blood Count 3.83 #L 3.42 L Red Cell Distribution Width 16.1 H 16.8 H Sodium Level 139 138 Total Bilirubin 2.2 H 1.6 H Total Protein 6.0 #L 5.4 L White Blood Count 9.6 9.5 Bedside Glucose 140 131 Band Neutrophils % 3.0 Magnesium Level 1.6 L Phosphorus Level 3.5 Medications Medications Current Medications Acetaminophen/ Hydrocodone Bitart ([place] (5/325)) 1 tab Q6H PRN PO MODERATE PAIN LEVEL 4-6 Last administered on 04/14/16t 14:49; Admin Dose 1 TAB; Start at 18:00 Zolpidem Tartrate (Ambien) 5 mg HS PRN PO INSOMNIA Last administered on 23:48; Admin Dose 5 MG; Start 04/01/16 at 22:00 Diphenhydramine HCl (Benadryl) 25 mg Q6H PRN PO ITCHING Last administered on 06:49; Admin Dose 25 MG; Start 04/02/16 at 07:00 Al Hydrox/Mg Hydrox/Simethicone (Mag-Al Plus) 30 ml Q6H PRN PO GASTROINTESTINAL UPSET Last administered on 04/06/16 19:40; Admin Dose 30 ML; Start 04/02/16 at 17:30 Simethicone (Mylicon) 80 mg Q6 PO Last administered on 04/25/16 05:51; Admin Dose 80 MG; Start 04/02/16 at 18:00 Clonidine HCl 1 patch 1 patch Q7D TRANSDERM Last administered on 04/18/16 12: 43; Admin Dose 1 PATCH; Start 04/04/16 at 13:15 Albumin Human (Alburx) 500 ml @ 250 mls/hr ONCE PRN IVPB U/O BELOW 30 ML/HR X 2 HR; Start 04/07/16 at 22:30 Pantoprazole (Protonix Iv) 40 mg DAILY@06 IV Last administered on 04/25/16 05: 51; Admin Dose 40 MG; Start 04/08/16 at 06:00 Hydromorphone HCl (Dilaudid YOUTH COUNSELOR) 0.3 MG/HR CONTINUOUS 0.3... Q4PCA IV Last administered on 04/24/16 14:42; Admin Dose 0.3 MG; Start 04/12/16 at 18:00 Hydralazine HCl 10 mg 10 mg Q4H PRN IV HTN Last administered on 04/25/16 00:51 ; Admin Dose 10 MG; Start 04/13/16 at 20:00 Ondansetron HCl/ Dextrose (Zofran Inj/D5W) 54 ml @ 108 mls/hr Q6H PRN IV NAUSEA AND/OR VOMITING Last administered on 04/24/16 03:01; Admin Dose 108 MLS/ HR; Start 04/15/16 at 12:30 Diagnostic Test (Pha) (Accucheck) 1 ea Q12 XX Last administered on 04/24/16 01 :30; Admin Dose 1 EA; Start 04/18/16 at 09:00 Metoclopramide HCl (Reglan) 10 mg Q8 IV Last administered on 04/25/16 05:52; Admin Dose 10 MG; Start 04/18/16 at 22:00 Lidocaine (Xylocaine 1% (Mpf)) 30 ml ONCE PRN INJ PAIN AND OR ELEVATED TEMP; Start 04/21/16 at 00:00 Lorazepam 1 mg 1 mg Q6H PRN IV ANXIETY Last administered on 04/23/16 13:59; Admin Dose 1 MG; Start 04/21/16 at 18:11 Fentanyl 100 ml @ 2.5 mls/hr TITRATE IV Last administered on 04/25/16 08:24; Admin Dose 10 MLS/HR; Start 04/25/16 at 00:00 Midazolam HCl 50 ml @ 1 mls/hr TITRATE IV Last administered on 04/25/16 09:31 ; Admin Dose 10 MLS/HR; Start 04/25/16 at 00:00 Potassium Cl/ Dextrose/Lact Ringer's 1,000 ml @ 150 mls/hr Q6H40M IV Last administered on 04/25/16 05:02; Admin Dose 150 MLS/HR; Start 04/25/16 at 02:00 Levofloxacin/ Dextrose 150 ml @ 100 mls/hr Q24H IVPB Last administered on 04/25 03:35; Admin Dose 100 MLS/HR; Start 04/25/16 at 02:00 Metronidazole (Flagyl 500 Mg (Pmx)) 100 ml @ 100 mls/hr Q8 IVPB Last administered on 04/25/16 05:52; Admin Dose 100 MLS/HR; Start 04/25/16 at 03:00 Hydromorphone HCl (Dilaudid) 1 mg Q1H PRN IV PAIN LEVEL 1-5; Start 04/25/16 at 02:00 Hydromorphone HCl (Dilaudid) 2 mg Q1H PRN IV PAIN LEVEL 6-10 Last administered on 04/25/16 10:28; Admin Dose 2 MG; Start 04/25/16 at 02:00 MELISSA RUGGIERO Apr 25, 2016 10:53
[2016-04-25] MEDS ORDERED: MAGNESIUM SULFATE 2 GM/50 ML 50 ML IVPB ONE (11:00)
--- NOTE | 2016-04-25 11:40 | CONS ---
DATE OF ADMISSION: 04/02/2016 DATE OF CONSULTATION: 04/25/2016 TYPE OF CONSULTATION: Pulmonary. REASON FOR CONSULTATION: Ventilator management. Thank you, Dr. Bravo, for this consultation. HISTORY OF PRESENT ILLNESS: This is an unfortunate 61-year-old lady, originally admitted in [place] with left flank pain, worse over the past few days. She has a history of ovarian carcinoma with m etastasis, and was found to have significant tumor bulking and underwent debulking surgery yesterday by Dr. Johnston. Now on mechanical ventilation overnight and this morning. Findings were consiste nt with metastatic disease. PAST MEDICAL HISTORY: As above. MEDICATIONS: Per chart. ALLERGIES: NONE. SOCIAL HISTORY: Nonsmoker, no alcohol, no history of drug use. FAMILY HISTORY: Noncontributory. SYSTEMS REVIEW: A 12-point review of systems was negative, other than that mentioned above on exami nation. IMPRESSION: Recurrent ovarian cancer status post debulking surgery. Continues mechanical ventilatio n. Currently hemodynamically stable, sedated on mechanical ventilation. PLAN: 1. Continue vent support, CPAP weaning trial. 2. Continue antibiotics per primary. 3. Continue pain control. 4. Postop surgical recommendations. Dictated By: NORA ARGUELLES MD SV/RUDDY Conf#: [id number] DID#: [id number]
[2016-04-25] MEDS: CLONIDINE 0.2 MG/24 HR PATCH TRANSDERM SCH (13:01)
--- NOTE | 2016-04-25 22:02 | PN ---
Date/Time of Note Date/Time of Note DATE: 04/25/16 TIME: 21:54 Assessment/Plan VTE Prophylaxis VTE Prophylaxis Intervention: SCD's Lines/Catheters IV C[facility]ter Type (from [facility]): Peripheral IV Urinary Cath still in place: Yes Assessment/Plan Chief Complaint/Hosp Course Ovarian cancer with recurrence would benefit from secondary CRS even though persistent disease because the problem is her chemo was delayed 3 months postop. Informed of need to start chemo nathan postop and will call [facility] Problems: Assessment/Plan A- doing reasonably well and awaiting extubation P- Hopefully wean and extubate but must keep in NGT and NPO on TPN and Sandostatin due to risk of anastomosis Subjective 24 Hr Interval Summary Free Text/Dictation S- minimally responsive while intubated; less pain O- Resp- clear CVS- NSR Abd- appropriate tenderness and incision adequately packed and dry Ext- NT less edema A- doing reasonably well and awaiting extubation P- Hopefully wean and extubate but must keep in NGT and NPO on TPN and Sandostatin due to risk of anastomosis Exam/Review of Systems Vital Signs Vitals Vital Signs Date Time Temp Pulse Resp B/P Pulse Ox O2 Delivery O2 Flow Rate FiO2 04/25/16 21:34 107 18 98 40 04/25/16 20:30 131/96 04/25/16 20:00 Mechanical Ventilator 04/25/16 19:00 98.3 04/24/16 10:38 2.0 Intake and Output 04/24/16 04/24/16 04/25/16 15:00 23:00 07:00 Intake Total 450 ml 949 ml 845 ml Output Total 1800 ml 2425 ml Balance -1350 ml 949 ml -1580 ml Results Result Diagram: 04/25/16 0515 04/25/16 0515 Results 24 hrs Laboratory Tests Test 04/24/16 22:19 04/25/16 01:35 04/25/16 01:50 04/25/16 02:12 Activated Partial Thromboplast Time 34.7 Anion Gap 12 14 Band Neutrophils % 3.0 Blood Urea Nitrogen 18 17 Calcium Level 7.5 L 7.7 L Carbon Dioxide Level 24 26 Chloride Level 105 102 Creatinine 0.58 0.59 Eosinophils # 0.2 0.0 Eosinophils % 2.0 0.2 Glucose Level 112 137 Hematocrit 28.0 L 33.1 L Hemoglobin 9.5 L 11.5 #L Hypochromasia 1+ INR International Normalized Ratio 1.33 1.30 Lymphocytes # 0.8 0.7 L Lymphocytes % 9.0 L 6.8 L Mean Corpuscular Hemoglobin 30.3 30.0 Mean Corpuscular Hemoglobin Concent 33.9 34.7 Mean Corpuscular Volume 89.2 86.4 Mean Platelet Volume 9.8 # 9.8 Monocytes # 0.6 0.5 Monocytes % 7.0 5.4 Neutrophils # 6.8 8.3 H Neutrophils % 76.0 86.5 H Platelet Count 183 # 184 Platelet Estimate PLT APPEAR ADEQUATE Potassium Level 3.4 L 3.2 L Prothrombin Time 16.6 H 16.3 H Prothrombin Time Ratio 1.3 1.3 Reactive Lymphocytes % 3.0 Red Blood Count 3.14 L 3.83 #L Red Cell Distribution Width 16.2 H 16.1 H Sodium Level 138 139 White Blood Count 9.0 9.6 Arterial Blood HCO3 22.6 Arterial Blood Base Excess -0.2 Arterial Blood Oxygen Saturation 99.3 H Duran Test N/A Arterial Blood Gas Puncture Site A-Line Arterial Blood Carboxyhemoglobin 0.3 Arterial Blood Date Drawn 04/25/2016 1:45:21 AM Arterial Blood Methemoglobin 0.4 Arterial Blood pCO2 (Temp correct) 31.3 L Arterial Blood pH (Temp corrected) 7.476 H Arterial Blood pO2 (Temp corrected) 329.4 H Blood Gas A-a O2 Differential 208.1 H Blood Gas Actual Respiration Rate 16 Blood Gas Inspiratory Pressure 27.0 Blood Gas Low PEEP Setting 5.0 Blood Gas Modality VENT - AC Blood Gas Notified Time 04/25/2016 2:02:36 AM Blood Gas Notified Whom KM Blood Gas Respiration Rate 14.0 Blood Gas Specimen Source Blood arterial Blood Gas Temperature 37.0 Blood Gas Tidal Volume 500.0 FiO2 80.0 Oxyhemoglobin Percent 98.6 Total Hemoglobin 12.6 Alanine Aminotransferase (ALT/SGPT) 31 Albumin 2.6 L Albumin/Globulin Ratio 0.76 Alkaline Phosphatase 158 H Aspartate Amino Transf (AST/SGOT) 30 Basophils # 0.0 Basophils % 0.2 Direct Bilirubin 0.90 #H Fibrinogen 364.0 Globulin 3.40 H Indirect Bilirubin 1.3 H Nucleated Red Blood Cells # 0.0 Nucleated Red Blood Cells % 0.0 Total Bilirubin 2.2 H Total Protein 6.0 #L Bedside Glucose 140 Test 04/25/16 05:15 04/25/16 08:42 04/25/16 21:25 Alanine Aminotransferase (ALT/SGPT) 26 Albumin 2.5 L Albumin/Globulin Ratio 0.86 Alkaline Phosphatase 128 H Anion Gap 15 Aspartate Amino Transf (AST/SGOT) 30 Band Neutrophils % 3.0 Blood Urea Nitrogen 18 Calcium Level 7.5 L Carbon Dioxide Level 25 Chloride Level 102 Creatinine 0.58 D-Dimer > 66737.00 H Direct Bilirubin 0.60 #H Eosinophils # 0.1 Eosinophils % 1.0 Fibrinogen 372.0 Globulin 2.90 Glucose Level 158 Hematocrit 30.3 L Hemoglobin 10.2 L INR International Normalized Ratio 1.29 Indirect Bilirubin 1.0 Lymphocytes # 0.5 L Lymphocytes % 5.0 L Magnesium Level 1.6 L Mean Corpuscular Hemoglobin 29.8 Mean Corpuscular Hemoglobin Concent 33.7 Mean Corpuscular Volume 88.6 Mean Platelet Volume 10.7 H Monocytes # 0.4 Monocytes % 4.0 Neutrophils # 8.3 H Neutrophils % 87.0 H Phosphorus Level 3.5 Platelet Count 195 Potassium Level 3.6 Prothrombin Time 16.2 H Prothrombin Time Ratio 1.3 Red Blood Count 3.42 L Red Cell Distribution Width 16.8 H Sodium Level 138 Total Bilirubin 1.6 H Total Protein 5.4 L White Blood Count 9.5 Bedside Glucose 131 147 Medications Medications Current Medications Acetaminophen/ Hydrocodone Bitart ([place] (5/325)) 1 tab Q6H PRN PO MODERATE PAIN LEVEL 4-6 Last administered on 04/14/16 14:49; Admin Dose 1 TAB; Start at 18:00 Zolpidem Tartrate (Ambien) 5 mg HS PRN PO INSOMNIA Last administered on 23:48; Admin Dose 5 MG; Start 04/01/16 at 22:00 Diphenhydramine HCl (Benadryl) 25 mg Q6H PRN PO ITCHING Last administered on 06:49; Admin Dose 25 MG; Start 04/02/16 at 07:00 Al Hydrox/Mg Hydrox/Simethicone (Mag-Al Plus) 30 ml Q6H PRN PO GASTROINTESTINAL UPSET Last administered on 04/06/16 19:40; Admin Dose 30 ML; Start 04/02/16 at 17:30 Simethicone (Mylicon) 80 mg Q6 PO Last administered on 04/25/16 17:44; Admin Dose 80 MG; Start 04/02/16 at 18:00 Clonidine HCl 1 patch 1 patch Q7D TRANSDERM Last administered on 04/25/16 13: 01; Admin Dose 1 PATCH; Start 04/04/16 at 13:15 Albumin Human (Alburx) 500 ml @ 250 mls/hr ONCE PRN IVPB U/O BELOW 30 ML/HR X 2 HR; Start 04/07/16 at 22:30 Pantoprazole (Protonix Iv) 40 mg DAILY@06 IV Last administered on 04/25/16 05: 51; Admin Dose 40 MG; Start 04/08/16 at 06:00 Hydromorphone HCl (Dilaudid AUTOM[employer]GING MACHINE OPERATOR) 0.3 MG/HR CONTINUOUS 0.3... Q4PCA IV Last administered on 04/24/16 14:42; Admin Dose 0.3 MG; Start 04/12/16 at 18:00 Hydralazine HCl 10 mg 10 mg Q4H PRN IV HTN Last administered on 04/25/16 00:51 ; Admin Dose 10 MG; Start 04/13/16 at 20:00 Ondansetron HCl/ Dextrose (Zofran Inj/D5W) 54 ml @ 108 mls/hr Q6H PRN IV NAUSEA AND/OR VOMITING Last administered on 04/24/16 03:01; Admin Dose 108 MLS/ HR; Start 04/15/16 at 12:30 Diagnostic Test (Pha) (Accucheck) 1 ea Q12 XX Last administered on 04/25/16 21 :26; Admin Dose 1 EA; Start 04/18/16 at 09:00 Metoclopramide HCl (Reglan) 10 mg Q8 IV Last administered on 04/25/16 21:23; Admin Dose 10 MG; Start 04/18/16 at 22:00 Lidocaine (Xylocaine 1% (Mpf)) 30 ml ONCE PRN INJ PAIN AND OR ELEVATED TEMP; Start 04/21/16 at 00:00 Lorazepam 1 mg 1 mg Q6H PRN IV ANXIETY Last administered on 04/23/16 13:59; Admin Dose 1 MG; Start 04/21/16 at 18:11 Fentanyl 100 ml @ 2.5 mls/hr TITRATE IV Last administered on 04/25/16 17:40; Admin Dose 10 MLS/HR; Start 04/25/16 at 00:00 Midazolam HCl 50 ml @ 1 mls/hr TITRATE IV Last administered on 04/25/16 20:23 ; Admin Dose 10 MLS/HR; Start 04/25/16 at 00:00 Potassium Cl/ Dextrose/Lact Ringer's 1,000 ml @ 150 mls/hr Q6H40M IV Last administered on 04/25/16 18:44; Admin Dose 150 MLS/HR; Start 04/25/16 at 02:00 Levofloxacin/ Dextrose 150 ml @ 100 mls/hr Q24H IVPB Last administered on 04/25 03:35; Admin Dose 100 MLS/HR; Start 04/25/16 at 02:00 Metronidazole (Flagyl 500 Mg (Pmx)) 100 ml @ 100 mls/hr Q8 IVPB Last administered on 04/25/16 21:26; Admin Dose 100 MLS/HR; Start 04/25/16 at 03:00 Hydromorphone HCl (Dilaudid) 1 mg Q1H PRN IV PAIN LEVEL 1-5; Start 04/25/16 at 02:00 Hydromorphone HCl (Dilaudid) 2 mg Q1H PRN IV PAIN LEVEL 6-10 Last administered on 04/25/16 21:22; Admin Dose 2 MG; Start 04/25/16 at 02:00 ANDI WADDELL MD Apr 25, 2016 22:02
[2016-04-26] VITALS (36 sets, daily range): BP systolic 102–135; BP diastolic 61–97; PULSE 100–120; RESP 15–26
[2016-04-26] MEDS: D5-LR + KCL 20 MEQ 1,000 ML IV SCH ×3 (01:38→17:57)
[2016-04-26] MEDS: MIDAZOLAM (DRIP) 50 mg/50 mL 50 ML IV SCH ×2 (01:38→07:00)
[2016-04-26] MEDS: FENTAnyl (DRIP) 1000 mcg/100mL 100 ML IV SCH ×3 (02:26→23:06)
[2016-04-26] MEDS: LEVOFLOXACIN 750MG/D5W (PMX) 150 ML IVPB SCH (02:26)
[2016-04-26] MEDS: HYDROmorphONE 2 MG/ML SYG IV PRN ×4 (04:36→23:24)
[2016-04-26 04:37] LABS: ADD SCAN DIFF NO
[2016-04-26 04:48] LABS: BASOPHILS % 0.1 % (0.0-2.0); EOSINOPHILS % 0.2 % (0.0-7.0); HEMOGLOBIN 10.4 g/dl (12.0-16.0); LYMPHOCYTES # 0.8 10^3/ul (0.8-2.9); LYMPHOCYTES % 6.3 % (15.0-51.0); MEAN CORPUSCULAR HEMOGLOBIN 29.6 pg (29.0-33.0); MEAN CORPUSCULAR HGB CONC 33.5 g/dl (32.0-37.0); MEAN CORPUSCULAR VOLUME 88.3 fl (82.0-101.0); MEAN PLATELET VOLUME 10.9 fl (7.4-10.4); MONOCYTE # 0.8 10^3/ul (0.3-0.9); NEUTROPHIL # 10.9 10^3/ul (1.6-7.5); NEUTROPHILS % 86.8 % (39.0-77.0); PLATELET COUNT 157 10^3/UL (140-415); RED BLOOD COUNT 3.51 10^6/ul (4.20-5.40); RED CELL DISTRIBUTION WIDTH 16.5 % (11.5-14.5); WHITE BLOOD COUNT 12.5 10^3/ul (4.8-10.8)
[2016-04-26 05:04] LABS: INR 1.42; PROTIME 17.4 Sec (12.2-14.2); PT RATIO 1.4
[2016-04-26 05:05] LABS: PARTIAL THROMBOPLASTIN TIME 26.7 Sec (25.0-35.0)
[2016-04-26 05:06] LABS: POTASSIUM 3.6 mmol/L (3.5-5.1); THROMBIN TIME 15.8 SEC (13.8-19.1)
[2016-04-26 05:08] LABS: CREATININE 0.58 mg/dl (0.44-1.00)
[2016-04-26 05:09] LABS: PHOSPHORUS 2.7 mg/dl (2.5-4.9)
[2016-04-26 05:10] LABS: CALCIUM 7.5 mg/dl (8.4-10.2)
[2016-04-26 05:24] LABS: PLATELET COUNT 157 10^3/UL (140-440)
[2016-04-26] MEDS: FUROSEMIDE 20 MG INJ IV SCH ×2 (05:32→17:53)
[2016-04-26] MEDS: METOCLOPRAMIDE 10 MG INJ IV SCH ×3 (05:32→21:53)
[2016-04-26] MEDS: metroNIDAZOLE 500 MG/NS (PMX) 100 ML IVPB SCH ×3 (05:32→21:53)
[2016-04-26] MEDS: PANTOPRAZOLE 40 MG INJ IV SCH (05:32)
[2016-04-26 06:04] LABS: FIBRIN SPLIT PRODUCT >10 and <40 ug/ml (<10)
[2016-04-26 06:43] LABS: D-DIMER > 10000.00 ng/ml (<460)
--- NOTE | 2016-04-26 08:09 | PN ---
DATE: 04/25/2016 HISTORY OF PRESENT ILLNESS: Mrs. Ocampo is a 61-year-old lady with a history of recurrent ovarian cancer. She had repeat laparotomy and tumor debulking by Dr. Johnston yesterday. The holli ent is still intubated. PHYSICAL EXAMINATION: GENERAL: Shows a moderately built female who is intubated through the mouth. She has an NG tube. HEART: Unremarkable except for sinus tachycardia. LUNGS: Unremarkable. ABDOMEN: There is a midline surgical scar. There is a surgical drain. EXTREMITIES: Showed 1+ edema. LABORATORY DATA: Her CBC and CMP are stable except for bilirubin 1.6. Her PT/INR is 1.29. IMPRESSION: Carcinoma of the ovary, recurrent, status post repeat tumor debulking on 04/24/2016. PLAN: The patient is still intubated. The patient apparently had good tumor debulking. She almost certainly will need second line chemotherapy. Meanwhile, we will monitor her closely. Dictated By: KATELYN XIAO MD PC/RUDDY Conf#: [id number] DID#: [id number]
[2016-04-26] MEDS: ACCU-CHEK XX SCH ×2 (09:48→21:08)
[2016-04-26] MEDS: OCTREOTIDE 50 MCG INJ SC SCH ×3 (09:56→21:08)
--- NOTE | 2016-04-26 10:23 | RADRPT ---
PROCEDURE: XR Chest. CLINICAL INDICATION: 61-year-old female with pneumonia/CHF. TECHNIQUE: Single frontal view of the chest was obtained COMPARISON: Chest x-ray 04/25/2016. FINDINGS: The soft tissues are normal. There are degenerative osteophytes in the thoracic spine. The the hea rt, cardiomediastinal silhouette, pulmonary vasculature and hilar structures are normal. There is a left-sided aorta. > There is infiltrate or atelectasis the medial aspect of the right lower lobe. There are infiltrates with increased density silhouetting the medial aspect of the left diaphragm. NG tube remains in place with its tip distal to the GE junction. There is a Port-A-Cath over the ri ght chest wall with its tip in the proximal right atrium. IMPRESSION: 1. Patchy infiltrate versus atelectasis in the medial aspect of the right lower lobe is more extensi ve when compared to 04/25/2016. 2. Elevated right diaphragm. 3. There are vague infiltrates in the medial aspect of the left lower lobe which may be the result of pneumonia. These are unchanged. 4. Satisfactory positioning of an endotracheal tube at T3. 5. Port-A-Cath over the right chest wall with its tip in the right atrium. There is 6 a NG tube is well positioned. 7. Chronic right rotator cuff tear with narrowing of the right subacromial joint space. RPTAT:AAJJ Physician Gera Date Time Electronically viewed and signed by Physician Gera on 04/26/2016 10:22 /
--- NOTE | 2016-04-26 11:16 | PN ---
Date/Time of Note Date/Time of Note DATE: 04/26/16 TIME: 11:15 Assessment/Plan VTE Prophylaxis VTE Prophylaxis Intervention: other Lines/Catheters IV Catheter Type (from Nrsg): Peripheral IV Urinary Cath still in place: Yes Reason Cath still needed: skin wounds contaminated by urine Assessment/Plan Chief Complaint/Hosp Course - Progressive recurrent ovarian carcinoma. Status post chemotherapy. Dr. Foy is following in hematology/oncology consultation. Dr. Johnston is following from a surgery standpoint. S/p bowel resection 04/07. Continue follow -up per general surgery recommendations. Continue TPN and lipids. Patient has significant amount of drainage from incision started on Levaquin and Flagyl. - Multiple loculated fluid collections per CT of the abdomen, continue to follow up surgical recommendations - Intractable abdominal pain and nausea secondary to #1, resolved. 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 Dr. Green is asked to see patient in pain management consultation. - Bilateral lower extremities edema, ultrasound is negative for DVT, continue Lasix, monitor electrolytes. Problems: Subjective 24 Hr Interval Summary Free Text/Dictation Patient remains sedated and intubated Exam/Review of Systems Vital Signs Vitals Vital Signs Date Time Temp Pulse Resp B/P Pulse Ox O2 Delivery O2 Flow Rate FiO2 04/26/16 11:00 114 20 126/89 99 Mechanical Ventilator 04/26/16 08:00 98.0 04/26/16 05:36 40 04/24/16 10:38 2.0 Intake and Output 04/25/16 04/25/16 04/26/16 15:00 23:00 07:00 Intake Total 1365 ml 1390 ml 1510 ml Output Total 960 ml 620 ml 455 ml Balance 405 ml 770 ml 1055 ml Exam Constitutional: well developed Head: atraumatic, normocephalic Neck: supple Respiratory: diminished breath sounds Cardiovascular: regular rate and rhythm Gastrointestinal: non-tender, soft Extremities: normal pulses Results Result Diagram: 04/26/16 0330 04/26/16 0330 Results 24 hrs Laboratory Tests Test 04/25/16 21:25 04/26/16 03:30 Bedside Glucose 147 Activated Partial Thromboplast Time 26.7 Anion Gap 15 Basophils # 0.0 Basophils % 0.1 Blood Urea Nitrogen 17 Calcium Level 7.5 L Carbon Dioxide Level 24 Chloride Level 105 Creatinine 0.58 D-Dimer > 68835.00 H Eosinophils # 0.0 Eosinophils % 0.2 Fibrinogen 407.0 # Glucose Level 122 Hematocrit 31.0 L Hemoglobin 10.4 L INR International Normalized Ratio 1.42 Lymphocytes # 0.8 Lymphocytes % 6.3 L Magnesium Level 2.0 Mean Corpuscular Hemoglobin 29.6 Mean Corpuscular Hemoglobin Concent 33.5 Mean Corpuscular Volume 88.3 Mean Platelet Volume 10.9 H Monocytes # 0.8 Monocytes % 6.0 Neutrophils # 10.9 H Neutrophils % 86.8 H Nucleated Red Blood Cells # 0.0 Nucleated Red Blood Cells % 0.0 Phosphorus Level 2.7 Plasma Fibrin Degradation Products >10 and <40 H Platelet Count 157 # Potassium Level 3.6 Prothrombin Time 17.4 H Prothrombin Time Ratio 1.4 Red Blood Count 3.51 L Red Cell Distribution Width 16.5 H Sodium Level 140 Thrombin Time 15.8 White Blood Count 12.5 #H Medications Medications Current Medications Acetaminophen/ Hydrocodone Bitart ([place] (5/325)) 1 tab Q6H PRN PO MODERATE PAIN LEVEL 4-6 Last administered on 04/14/16 14:49; Admin Dose 1 TAB; Start at 18:00 Zolpidem Tartrate (Ambien) 5 mg HS PRN PO INSOMNIA Last administered on 23:48; Admin Dose 5 MG; Start 04/01/16 at 22:00 Diphenhydramine HCl (Benadryl) 25 mg Q6H PRN PO ITCHING Last administered on 06:49; Admin Dose 25 MG; Start 04/02/16 at 07:00 Al Hydrox/Mg Hydrox/Simethicone (Mag-Al Plus) 30 ml Q6H PRN PO GASTROINTESTINAL UPSET Last administered on 04/06/16 19:40; Admin Dose 30 ML; Start 04/02/16 at 17:30 Simethicone (Mylicon) 80 mg Q6 PO Last administered on 04/26/16 05:32; Admin Dose 80 MG; Start 04/02/16 at 18:00 Clonidine HCl 1 patch 1 patch Q7D TRANSDERM Last administered on 04/25/16 13: 01; Admin Dose 1 PATCH; Start 04/04/16 at 13:15 Albumin Human (Alburx) 500 ml @ 250 mls/hr ONCE PRN IVPB U/O BELOW 30 ML/HR X 2 HR; Start 04/07/16 at 22:30 Pantoprazole (Protonix Iv) 40 mg DAILY@06 IV Last administered on 04/26/16 05: 32; Admin Dose 40 MG; Start 04/08/16 at 06:00 Hydromorphone HCl (Dilaudid CASH MANAGEMENT ASSOCIATE) 0.3 MG/HR CONTINUOUS 0.3... Q4PCA IV Last administered on 04/24/16 14:42; Admin Dose 0.3 MG; Start 04/12/16 at 18:00 Hydralazine HCl 10 mg 10 mg Q4H PRN IV HTN Last administered on 04/25/16 00:51 ; Admin Dose 10 MG; Start 04/13/16 at 20:00 Ondansetron HCl/ Dextrose (Zofran Inj/D5W) 54 ml @ 108 mls/hr Q6H PRN IV NAUSEA AND/OR VOMITING Last administered on 04/24/16 03:01; Admin Dose 108 MLS/ HR; Start 04/15/16 at 12:30 Diagnostic Test (Pha) (Accucheck) 1 ea Q12 XX Last administered on 04/26/16 09 :48; Admin Dose 1 EA; Start 04/18/16 at 09:00 Metoclopramide HCl (Reglan) 10 mg Q8 IV Last administered on 04/26/16 05:32; Admin Dose 10 MG; Start 04/18/16 at 22:00 Lidocaine (Xylocaine 1% (Mpf)) 30 ml ONCE PRN INJ PAIN AND OR ELEVATED TEMP; Start 04/21/16 at 00:00 Lorazepam 1 mg 1 mg Q6H PRN IV ANXIETY Last administered on 04/23/16 13:59; Admin Dose 1 MG; Start 04/21/16 at 18:11 Fentanyl 100 ml @ 2.5 mls/hr TITRATE IV Last administered on 04/26/16 02:26; Admin Dose 10 MLS/HR; Start 04/25/16 at 00:00 Midazolam HCl 50 ml @ 1 mls/hr TITRATE IV Last administered on 04/26/16 07:00 ; Admin Dose 10 MLS/HR; Start 04/25/16 at 00:00 Potassium Cl/ Dextrose/Lact Ringer's 1,000 ml @ 150 mls/hr Q6H40M IV Last administered on 04/26/16 01:38; Admin Dose 150 MLS/HR; Start 04/25/16 at 02:00 Levofloxacin/ Dextrose 150 ml @ 100 mls/hr Q24H IVPB Last administered on 04/26 02:26; Admin Dose 100 MLS/HR; Start 04/25/16 at 02:00 Metronidazole (Flagyl 500 Mg (Pmx)) 100 ml @ 100 mls/hr Q8 IVPB Last administered on 04/26/16 05:32; Admin Dose 100 MLS/HR; Start 04/25/16 at 03:00 Hydromorphone HCl (Dilaudid) 1 mg Q1H PRN IV PAIN LEVEL 1-5; Start 04/25/16 at 02:00 Hydromorphone HCl (Dilaudid) 2 mg Q1H PRN IV PAIN LEVEL 6-10 Last administered on 04/26/16 04:36; Admin Dose 2 MG; Start 04/25/16 at 02:00 Octreotide Acetate (Sandostatin) 50 mcg TID SC Last administered on 04/26/16 09:56; Admin Dose 50 MCG; Start 04/26/16 at 09:00 MELISSA RUGGIERO Apr 26, 2016 11:16
--- NOTE | 2016-04-26 12:11 | PN ---
DATE: 04/26/2016 SUBJECTIVE: The patient remains stable on mechanical ventilation. Failed CPAP weaning trial yester day with increased work of breathing and agitation. Overnight, she remained hemodynamically stable. OBJECTIVE: VITAL SIGNS: Temperature 98, pulse is 100, blood pressure 102/70, O2 saturation 96% on 40% FIO2. HEENT: Orally intubated. Dry mucous membranes. Pupils equal, round, reactive to light. CARDIAC: S1, S2, no added sounds or murmurs. CHEST: Diminished air entry bilaterally. ABDOMEN: Soft, nontender. No guarding or rebound. EXTREMITIES: No cyanosis, clubbing, edema. NEUROLOGIC: Generalized weakness. LABORATORY DATA: White count 12.5, hemoglobin 10.4, platelets 157. BUN 17, creatinine 0.78. IMAGING: Chest x-ray was reviewed and showed patchy atelectasis, possible early interstitial edema. IMPRESSION AND PLAN: 1. Metastatic ovarian CA status post debulking surgery. 2. Hypoxemic respiratory failure postoperatively. 3. Dysphagia. Continue n.p.o. status per general surgery. May require TPN and simvastatin. Dictated By: NORA JUNIOR/RUDDY Conf#: [id number] DID#: [id number]
[2016-04-26] MEDS ORDERED: VANCOMYCIN IV PER PHARMACY XX SCH (12:30)
[2016-04-26] MEDS: PIPER-TAZO 3.375 GM IV (PMX) 100 ML IVPB SCH ×2 (12:58→17:53)
[2016-04-26] MEDS ORDERED: VANCOMYCIN 1.25 GM in SOD CHLORIDE 0.9% 250 ML IVPB ONE (13:00)
[2016-04-26 13:50] LABS: AADO2 Arterial 71.2 mmHg (7.0-24.0); Arterial COHb 0.8 % (0.0-3.0); Arterial Fraction of Oxyhgb 96.9 % (93.0-99.0); Arterial HCO3 24.5 mmol/L (22.0-26.0); Arterial MetHb 0.4 % (0.0-1.5); Arterial Total Hemglobin 11.6 g/dl (12.0-18.0); Blood Gas PS 10; MODE VENT - CPAP
--- NOTE | 2016-04-26 17:20 | PN ---
Date/Time of Note Date/Time of Note DATE: 04/26/16 TIME: 17:16 Assessment/Plan VTE Prophylaxis VTE Prophylaxis Intervention: SCD's Lines/Catheters IV Catheter Type (from [facility] Peripheral IV Urinary Cath still in place: Yes Assessment/Plan Chief Complaint/Hosp Course Ovarian cancer with recurrence would benefit from secondary CRS even though persistent disease because the problem is her chemo was delayed 3 months postop. Informed of need to start chemo nathan postop and will call [facility] Problems: Assessment/Plan A- doing reasonably well and awaiting extubation P- Hopefully wean and extubate but must keep in NGT and NPO on TPN and Sandostatin started due to risk of fistula. Must add FFP due to risk Subjective 24 Hr Interval Summary Free Text/Dictation S- minimally responsive while intubated; less pain O- Resp- clear CVS- NSR Abd- appropriate tenderness and incision adequately packed and dry, no leakage or bleeding when repacked Ext- NT less edema A- doing reasonably well and awaiting extubation P- Hopefully wean and extubate but must keep in NGT and NPO on TPN and Sandostatin started due to risk of fistula. Must add FFP due to risk Exam/Review of Systems Vital Signs Vitals Vital Signs Date Time Temp Pulse Resp B/P Pulse Ox O2 Delivery O2 Flow Rate FiO2 04/26/16 16:00 98.0 110 18 122/87 100 Mechanical Ventilator 04/26/16 15:40 3.0 04/26/16 13:05 30 Intake and Output 04/25/16 04/25/16 04/26/16 15:00 23:00 07:00 Intake Total 1365 ml 1390 ml 1510 ml Output Total 960 ml 620 ml 455 ml Balance 405 ml 770 ml 1055 ml Results Result Diagram: 04/26/16 0330 04/26/16 0330 Results 24 hrs Laboratory Tests Test 04/25/16 21:25 04/26/16 03:30 04/26/16 13:00 Bedside Glucose 147 Activated Partial Thromboplast Time 26.7 Anion Gap 15 Basophils # 0.0 Basophils % 0.1 Blood Urea Nitrogen 17 Calcium Level 7.5 L Carbon Dioxide Level 24 Chloride Level 105 Creatinine 0.58 D-Dimer > 13130.00 H Eosinophils # 0.0 Eosinophils % 0.2 Fibrinogen 407.0 # Glucose Level 122 Hematocrit 31.0 L Hemoglobin 10.4 L INR International Normalized Ratio 1.42 Lymphocytes # 0.8 Lymphocytes % 6.3 L Magnesium Level 2.0 Mean Corpuscular Hemoglobin 29.6 Mean Corpuscular Hemoglobin Concent 33.5 Mean Corpuscular Volume 88.3 Mean Platelet Volume 10.9 H Monocytes # 0.8 Monocytes % 6.0 Neutrophils # 10.9 H Neutrophils % 86.8 H Nucleated Red Blood Cells # 0.0 Nucleated Red Blood Cells % 0.0 Phosphorus Level 2.7 Plasma Fibrin Degradation Products >10 and <40 H Platelet Count 157 # Potassium Level 3.6 Prothrombin Time 17.4 H Prothrombin Time Ratio 1.4 Red Blood Count 3.51 L Red Cell Distribution Width 16.5 H Sodium Level 140 Thrombin Time 15.8 White Blood Count 12.5 #H Arterial Blood HCO3 24.5 Arterial Blood Base Excess 2.0 Arterial Blood Oxygen Saturation 98.1 H Duran Test N/A Arterial Blood Gas Puncture Site A-Line Arterial Blood Carboxyhemoglobin 0.8 Arterial Blood Date Drawn 04/26/2016 1:36:34 PM Arterial Blood Methemoglobin 0.4 Arterial Blood pCO2 (Temp correct) 31.2 L Arterial Blood pH (Temp corrected) 7.512 H Arterial Blood pO2 (Temp corrected) 106.0 H Blood Gas A-a O2 Differential 71.2 H Blood Gas Actual Respiration Rate 23 Blood Gas Low PEEP Setting 5.0 Blood Gas Modality VENT - CPAP Blood Gas Notified Time 04/26/2016 1:49:35 PM Blood Gas Notified Whom WS Blood Gas Pressure Support 10 Blood Gas Specimen Source Blood arterial Blood Gas Temperature 37.0 FiO2 30.0 Oxyhemoglobin Percent 96.9 Total Hemoglobin 11.6 L Medications Medications Current Medications Acetaminophen/ Hydrocodone Bitart ([place] (5/325)) 1 tab Q6H PRN PO MODERATE PAIN LEVEL 4-6 Last administered on 04/14/16 14:49; Admin Dose 1 TAB; Start at 18:00 Zolpidem Tartrate (Ambien) 5 mg HS PRN PO INSOMNIA Last administered on 23:48; Admin Dose 5 MG; Start 04/01/16 at 22:00 Diphenhydramine HCl (Benadryl) 25 mg Q6H PRN PO ITCHING Last administered on 06:49; Admin Dose 25 MG; Start 04/02/16 at 07:00 Al Hydrox/Mg Hydrox/Simethicone (Mag-Al Plus) 30 ml Q6H PRN PO GASTROINTESTINAL UPSET Last administered on 04/06/16 19:40; Admin Dose 30 ML; Start 04/02/16 at 17:30 Simethicone (Mylicon) 80 mg Q6 PO Last administered on 04/26/16 05:32; Admin Dose 80 MG; Start 04/02/16 at 18:00 Clonidine HCl 1 patch 1 patch Q7D TRANSDERM Last administered on 04/25/16 13: 01; Admin Dose 1 PATCH; Start 04/04/16 at 13:15 Albumin Human (Alburx) 500 ml @ 250 mls/hr ONCE PRN IVPB U/O BELOW 30 ML/HR X 2 HR; Start 04/07/16 at 22:30 Pantoprazole (Protonix Iv) 40 mg DAILY@06 IV Last administered on 04/26/16 05: 32; Admin Dose 40 MG; Start 04/08/16 at 06:00 Hydromorphone HCl (Dilaudid GROUND WATER PUMP INSTALLER) 0.3 MG/HR CONTINUOUS 0.3... Q4PCA IV Last administered on 04/24/16 14:42; Admin Dose 0.3 MG; Start 04/12/16 at 18:00 Hydralazine HCl 10 mg 10 mg Q4H PRN IV HTN Last administered on 04/25/16 00:51 ; Admin Dose 10 MG; Start 04/13/16 at 20:00 Ondansetron HCl/ Dextrose (Zofran Inj/D5W) 54 ml @ 108 mls/hr Q6H PRN IV NAUSEA AND/OR VOMITING Last administered on 04/24/16 03:01; Admin Dose 108 MLS/ HR; Start 04/15/16 at 12:30 Diagnostic Test (Pha) (Accucheck) 1 ea Q12 XX Last administered on 04/26/16 09 :48; Admin Dose 1 EA; Start 04/18/16 at 09:00 Metoclopramide HCl (Reglan) 10 mg Q8 IV Last administered on 04/26/16 05:32; Admin Dose 10 MG; Start 04/18/16 at 22:00 Lidocaine (Xylocaine 1% (Mpf)) 30 ml ONCE PRN INJ PAIN AND OR ELEVATED TEMP; Start 04/21/16 at 00:00 Lorazepam 1 mg 1 mg Q6H PRN IV ANXIETY Last administered on 04/23/16 13:59; Admin Dose 1 MG; Start 04/21/16 at 18:11 Fentanyl 100 ml @ 2.5 mls/hr TITRATE IV Last administered on 04/26/16 13:08; Admin Dose 10 MLS/HR; Start 04/25/16 at 00:00 Midazolam HCl 50 ml @ 1 mls/hr TITRATE IV Last administered on 04/26/16 07:00 ; Admin Dose 10 MLS/HR; Start 04/25/16 at 00:00 Potassium Cl/ Dextrose/Lact Ringer's 1,000 ml @ 150 mls/hr Q6H40M IV Last administered on 04/26/16 08:00; Admin Dose 150 MLS/HR; Start 04/25/16 at 02:00 Metronidazole (Flagyl 500 Mg (Pmx)) 100 ml @ 100 mls/hr Q8 IVPB Last administered on 04/26/16 05:32; Admin Dose 100 MLS/HR; Start 04/25/16 at 03:00 Hydromorphone HCl (Dilaudid) 1 mg Q1H PRN IV PAIN LEVEL 1-5; Start 04/25/16 at 02:00 Hydromorphone HCl (Dilaudid) 2 mg Q1H PRN IV PAIN LEVEL 6-10 Last administered on 04/26/16 04:36; Admin Dose 2 MG; Start 04/25/16 at 02:00 Octreotide Acetate 50 mcg 50 mcg TID SC Last administered on 04/26/16 13:09; Admin Dose 50 MCG; Start 04/26/16 at 09:00 Piperacillin Sod/ Tazobactam Sod 100 ml @ 200 mls/hr Q6 IVPB Last administered on 04/26/16 12:58; Admin Dose 200 MLS/HR; Start 04/26/16 at 12:40 Vancomycin HCl (Vancocin) 250 ml @ 125 mls/hr Q24H IVPB ; Start 04/27/16 at 13: 00 ANDI WADDELL MD Apr 26, 2016 17:19
--- NOTE | 2016-04-26 18:10 | OPR ---
Date/Time of Note Date/Time of Note DATE: 04/26/16 TIME: 18:09 Operative Report Free Text/Dictation 1 OPERATIVE REPORT [facility] Name: Mary Jo Ocampo Medical Date: 04/24/16 Preoperative Diagnosis: 1- Recurrent ovarian cancer s/p reassessment laparotomy and cytoreduction 2- Fascial opening 3- Enterocutaneous fistula Postoperative Diagnosis: 1- Same 2- Extensive adhesions 3- Small bowel fistula 4- Progressive metastatic disease Procedures: 1- Small bowel resection and anastomosis 2- Incisional hernia/dehiscence repair Surgeon: Dr. Waddell Surface [employer] Breathing Apparatus: Dr. Casron Anesthesia: General Indications for surgery: The patient is a 61- year old female with recurrent/persistent ovarian cancer s /p secondary cytoreduction and a bowel resection and anastamosis during a reassessment laparotomy for ovarian cancer where persistent progressive disease was noted. A laparotomy was chosen of address wound dehiscence and a fistula with symptoms after addressing all options with risks and benefits. Findings and Summary After opening and exploration we noted some locations of fluid which were cultured but there was also progressive metastatic disease and a fistula was noted. Complete mobilization of all bowel was not possible due to the extent of edema and inflammation and friable nature of the tissue. The site of the fistula had metastatic disease so the etiology is unclear as it was near the anastamosis but not the anastamosis. A resection and anastamosis was accomplished. Of note, there was progressive metastatic disease. Procedure: After being prepped and draped in the usual manner a midline skin incision was made in the upper abdomen and the incision extended distal to the pubic area with sharp dissection and digitally. During the process the fistula was encountered. Upon entering the peritoneal cavity pockets of fluid of different character than the immediate fistula were encountered and cultured. At this time adhesions of intestine to the anterior abdominal wall were lysed with great care and any sero-muscular defects encountered were repaired with interrupted 3-0 Silk suture, although the extent of metastatic disease and desmoplastic reaction with scar tissue suggested the possibility widespread progressive metastatic disease and biopsies were taken. Additional enterolysis was accomplished throughout the although complete mobilization of all bowel was not possible due to the extent of edema and inflammation and friable nature of the tissue with a necessity to minimize enterotomies. With ongoing enterolysis of bowel adjacent to the bowel that fistulized an adjacent enterotomy was repaired without incident using continuous 3-0 Vicryl suture and interrupted 3-0 silk suture. The bowel to be removed with the fistula and probable metastatic disease was transected both proximally and distally with a 75 mm CLEVE stapler using green santos. The mesentery was divided using a Ligasure successively, cauterizing. Thin and vascular areas of mesentery were also divided with the Ligasure. Any bleeding areas were addressed with 3-0 silk sutures. The specimen was removed. At this time previously resected small bowel segments were reanastamosed. The bowel was than partly joined with the 75 mm CLEVE stapler and the enterotomy closed by hand due to the size and location with a continuous layer of 3-0 Vicryl suture and interrupted 3-0 silk suture. The mesenteric defect was closed with multiple sutures of 3-0 silk. The anastamosis was reinforced with a suture if 3-0 silk as needed and appropriate. At this time, after all packing was removed, the abdomen thoroughly irrigated, hemostasis confirmed, and the Venkatesh drain positioned. A figure of eight suture was placed at the caudal apex of the incision with 1-Prolene and used for exposure by elevating with a Pean clamp. Multiple sutures of interrupted 1-Prolene were continued to the supra- pubic area. The final cephlad suture was tied appropriately, after which the figure of eight was tied. The subcutaneous tissue was irrigated and the skin was closed with 3-0 Prolene suture on a Darwin needle and skin clips with the central area packed with Kerlex. The sponge, needle, and instrument were correct two times. The estimated blood loss was 200 cc. The patient tolerated the procedure well and left the OR in good condition. Andi Waddell M.D. ANDI WADDELL MD Apr 26, 2016 18:10
--- NOTE | 2016-04-26 19:13 | PN ---
DATE: 04/26/2016 HISTORY OF PRESENT ILLNESS: Ms. Ocampo is a 61-year-old lady with recurrent ovarian cance r. On 04/24/2016, she had a repeat laparotomy and debulking. The patient has been extubated. She is slowly improving. PHYSICAL EXAMINATION: GENERAL: Shows a moderately built female who is alert, oriented, and afebrile. EARS, NOSE, THROAT: Normal. CHEST: Symmetrical. BREASTS: Without any lumps. ABDOMEN: Has new surgical scar with surgical dressing. Her abdomen is tender. She has a Calvo cat heter. EXTREMITIES: Showed no edema. LABORATORY DATA: Her CBC is stable with a WBC 12,500 and platelets 157,000. Her DIC panel is jasmin l, except her D-dimer is high, which is probably secondary to surgery. Her BMP is also unremarkable . IMPRESSION: 1. Carcinoma of the ovary, recurrent, status post debulking surgery. 2. Mild leukocytosis and anemia with no evidence of disseminated intravascular coagulation. PLAN: The patient is improving after surgery. I will continue supportive treatment. We will repea t her CBC and CMP tomorrow. Dictated By: KATELYN XIAO MD PC/NTS Conf#: [id number] DID#: [id number] CC: BRIAN ZAZUETA MD;*EndCC*
[2016-04-27] VITALS (24 sets, daily range): BP systolic 98–147; BP diastolic 58–100; PULSE 78–105
[2016-04-27] MEDS: D5-LR + KCL 20 MEQ 1,000 ML IV SCH ×3 (02:34→18:07)
[2016-04-27] MEDS: PIPER-TAZO 3.375 GM IV (PMX) 100 ML IVPB SCH ×4 (02:34→18:32)
[2016-04-27] MEDS: HYDROmorphONE 2 MG/ML SYG IV PRN ×4 (02:45→14:24)
[2016-04-27] MEDS: metroNIDAZOLE 500 MG/NS (PMX) 100 ML IVPB SCH ×3 (05:38→21:10)
[2016-04-27] MEDS: PANTOPRAZOLE 40 MG INJ IV SCH (05:38)
[2016-04-27] MEDS: FUROSEMIDE 20 MG INJ IV SCH ×2 (05:38→18:28)
[2016-04-27] MEDS: METOCLOPRAMIDE 10 MG INJ IV SCH ×3 (05:38→21:09)
[2016-04-27 06:38] LABS: ADD SCAN DIFF NO
--- NOTE | 2016-04-27 06:39 | RADRPT ---
PROCEDURE: XR Chest. CLINICAL INDICATION: Respiratory failure TECHNIQUE: An AP view of the chest was obtained. COMPARISON: Chest x-ray dated 04/26/2016 FINDINGS: The endotracheal tube has been removed. The tip of the enteric tube projects over the left upper qu adrant. There is a right chest Port-A-Cath with tip in the upper right atrium. There are diffuse bilateral interstitial opacities with small bilateral pleural effusions. No pneu mothorax is seen. The cardiomediastinal silhouette is mildly enlarged . The osseous structures d emonstrate senescent changes. IMPRESSION: 1. Findings suggestive of interstitial edema with small bilateral pleural effusions. Findings are m ildly increased when compared to the prior examination. 2. Mild cardiomegaly. 3. Tubes and lines, as described above. RPTAT: HH .Shiela Rico MD, MD Date Time Electronically viewed and signed by .Shiela Rico MD, MD on 04/27/2016 06:39 .G/
[2016-04-27 06:55] LABS: HEMATOCRIT 25.3 % (37.0-47.0); HEMOGLOBIN 8.3 g/dl (12.0-16.0); MEAN CORPUSCULAR HEMOGLOBIN 29.6 pg (29.0-33.0); MEAN CORPUSCULAR HGB CONC 32.8 g/dl (32.0-37.0); MEAN CORPUSCULAR VOLUME 90.4 fl (82.0-101.0); MEAN PLATELET VOLUME 11.2 fl (7.4-10.4); PLATELET COUNT 103 10^3/UL (140-415); RED CELL DISTRIBUTION WIDTH 16.5 % (11.5-14.5); WHITE BLOOD COUNT 10.2 10^3/ul (4.8-10.8)
[2016-04-27 06:58] LABS: POTASSIUM 3.1 mmol/L (3.5-5.1)
[2016-04-27 07:00] LABS: CREATININE 0.74 mg/dl (0.44-1.00)
[2016-04-27 07:01] LABS: CALCIUM 7.5 mg/dl (8.4-10.2); PHOSPHORUS 2.8 mg/dl (2.5-4.9)
[2016-04-27 08:40] LABS: Arterial COHb 0.3 % (0.0-3.0); Arterial Fraction of Oxyhgb 96.3 % (93.0-99.0); Arterial HCO3 26.5 mmol/L (22.0-26.0); Arterial MetHb 0.5 % (0.0-1.5); Arterial Total Hemglobin 8.7 g/dl (12.0-18.0); MODE NASAL CANNULA
[2016-04-27] MEDS: FENTAnyl (DRIP) 1000 mcg/100mL 100 ML IV SCH (09:21)
[2016-04-27] MEDS: OCTREOTIDE 50 MCG INJ SC SCH ×3 (09:43→21:09)
[2016-04-27] MEDS: ACCU-CHEK XX SCH ×2 (09:55→21:00)
[2016-04-27] MEDS: VANCOMYCIN 750 MG in SOD CHLORIDE 0.9% 150 ML IVPB SCH (11:24)
[2016-04-27 11:57] LABS: LYMPHOCYTES # 0.5 10^3/ul (0.8-2.9); MONOCYTE # 0.4 10^3/ul (0.3-0.9); NEUTROPHIL # 8.3 10^3/ul (1.6-7.5)
[2016-04-27] MEDS ORDERED: VANCOMYCIN 1 GM in NS 250 ML IVPB SCH (13:00)
[2016-04-27] MEDS ORDERED: OCTREOTIDE 100 MCG INJ SC SCH (13:00)
--- NOTE | 2016-04-27 14:05 | PN ---
Date/Time of Note Date/Time of Note DATE: 04/27/16 TIME: 14:00 Assessment/Plan VTE Prophylaxis VTE Prophylaxis Intervention: SCD's Lines/Catheters IV Catheter Type (from Nrs): Peripheral IV Urinary Cath still in place: Yes Reason Cath still needed: urinary retention Assessment/Plan Chief Complaint/Hosp Course ASSESSMENT AND PLAN: - Progressive recurrent ovarian carcinoma. Status post chemotherapy. Dr. Foy is following in hematology/oncology consultation. Dr. Johnston is following from a surgery standpoint. S/p bowel resection 04/07. Status post debulking surgery on 04/24. Continue follow-up per general surgery recommendations. Continue TPN and lipids. Patient is currently on octreotide. Continue broad-spectrum antibiotics. - Hypoxemic respiratory failure postoperatively, patient was weaned off ventilator extubated. Continue supplemental oxygen incentive spirometer. - Multiple loculated fluid collections per CT of the abdomen, continue to follow up surgical recommendations - Intractable abdominal pain. Dr. Green is following in pain management consultation. Continue Dilaudid as needed, wean off fentanyl drip. - Bilateral lower extremities edema, ultrasound is negative for DVT, continue Lasix, monitor electrolytes. Continue Lovenox for deep venous thrombosis prophylaxis and Protonix for peptic ulcer disease prophylaxis. Further recommendations based on clinical course. Plan of care was discussed with Dr. Bravo. Problems: Subjective 24 Hr Interval Summary Free Text/Dictation Patient is currently is awake alert, pain is well controlled with fentanyl drip , comfortable and supplemental oxygen. Exam/Review of Systems Vital Signs Vitals Vital Signs Date Time Temp Pulse Resp B/P Pulse Ox O2 Delivery O2 Flow Rate FiO2 04/27/16 12:00 82 04/27/16 12:00 98.4 113/82 100 Nasal Cannula 04/27/16 01:57 3.0 04/26/16 16:00 18 04/26/16 13:05 30 Intake and Output 04/26/16 04/26/16 04/27/16 15:00 23:00 07:00 Intake Total 1026 ml 1129 ml 1030 ml Output Total 800 ml 563 ml 400 ml Balance 226 ml 566 ml 630 ml Exam PHYSICAL ASSESSMENT: GENERAL: Well-developed, well-nourished female currently is awake, alert. HEENT: Head is atraumatic, normocephalic. NGT to LWS. NECK: Supple, no cervical lymphadenopathy, no thyromegaly. CHEST: Lungs clear bilaterally. There is no rhonchi, wheezes, rales noted. CARDIOVASCULAR: Normal S1, S2. No murmurs, gallops, clicks, rubs noted. ABDOMEN: Round, soft, s/p surgery. SKIN: There is no rash, petechiae noted. EXTREMITIES: No edema, clubbing, cyanosis. Pulses equal bilaterally 2+. Mild edema. SKIN: There is no rash or petechiae noted. NEUROLOGICAL: The patient is awake, alert and oriented x4. Results Result Diagram: 04/27/16 0550 04/27/16 0550 Results 24 hrs Laboratory Tests Test 04/26/16 21:07 04/27/16 05:50 04/27/16 07:00 Bedside Glucose 113 Anion Gap 11 Band Neutrophils % 10.0 H Blood Urea Nitrogen 19 Calcium Level 7.5 L Carbon Dioxide Level 28 Chloride Level 105 Creatinine 0.74 Eosinophils # Eosinophils % Glucose Level 105 Hematocrit 25.3 L Hemoglobin 8.3 #L Lymphocytes # 0.5 L Lymphocytes % 5.0 L Magnesium Level 2.0 Mean Corpuscular Hemoglobin 29.6 Mean Corpuscular Hemoglobin Concent 32.8 Mean Corpuscular Volume 90.4 Mean Platelet Volume 11.2 H Monocytes # 0.4 Monocytes % 4.0 Neutrophils # 8.3 H Neutrophils % 81.0 H Phosphorus Level 2.8 Platelet Count 103 #L Potassium Level 3.1 L Red Blood Count 2.80 #L Red Cell Distribution Width 16.5 H Sodium Level 141 White Blood Count 10.2 Arterial Blood HCO3 26.5 H Arterial Blood Base Excess 3.0 Arterial Blood Oxygen Saturation 97.1 Duran Test N/A Arterial Blood Gas Puncture Site A-Line Arterial Blood Carboxyhemoglobin 0.3 Arterial Blood Date Drawn 04/27/2016 8:10:58 AM Arterial Blood Methemoglobin 0.5 Arterial Blood pCO2 (Temp correct) 35.8 Arterial Blood pH (Temp corrected) 7.487 H Arterial Blood pO2 (Temp corrected) 97.8 Blood Gas A-a O2 Differential 74.0 H Blood Gas Modality NASAL CANNULA Blood Gas Notified Time 04/27/2016 8:40:43 AM Blood Gas Notified Whom JLD Blood Gas Specimen Source Blood arterial Blood Gas Temperature 37.0 FiO2 30.0 Oxyhemoglobin Percent 96.3 Total Hemoglobin 8.7 L Medications Medications Current Medications Acetaminophen/ Hydrocodone Bitart ([place] (5/325)) 1 tab Q6H PRN PO MODERATE PAIN LEVEL 4-6 Last administered on 04/14/16 14:49; Admin Dose 1 TAB; Start at 18:00 Zolpidem Tartrate (Ambien) 5 mg HS PRN PO INSOMNIA Last administered on 23:48; Admin Dose 5 MG; Start 04/01/16 at 22:00 Diphenhydramine HCl (Benadryl) 25 mg Q6H PRN PO ITCHING Last administered on 06:49; Admin Dose 25 MG; Start 04/02/16 at 07:00 Al Hydrox/Mg Hydrox/Simethicone (Mag-Al Plus) 30 ml Q6H PRN PO GASTROINTESTINAL UPSET Last administered on 04/06/16 19:40; Admin Dose 30 ML; Start 04/02/16 at 17:30 Simethicone (Mylicon) 80 mg Q6 PO Last administered on 04/26/16 05:32; Admin Dose 80 MG; Start 04/02/16 at 18:00 Clonidine HCl 1 patch 1 patch Q7D TRANSDERM Last administered on 04/25/16 13: 01; Admin Dose 1 PATCH; Start 04/04/16 at 13:15 Albumin Human (Alburx) 500 ml @ 250 mls/hr ONCE PRN IVPB U/O BELOW 30 ML/HR X 2 HR; Start 04/07/16 at 22:30 Pantoprazole (Protonix Iv) 40 mg DAILY@06 IV Last administered on 04/27/16 05: 38; Admin Dose 40 MG; Start 04/08/16 at 06:00 Hydromorphone HCl (Dilaudid SENIOR WEALTH ADVISOR) 0.3 MG/HR CONTINUOUS 0.3... Q4PCA IV Last administered on 04/24/16 14:42; Admin Dose 0.3 MG; Start 04/12/16 at 18:00 Hydralazine HCl 10 mg 10 mg Q4H PRN IV HTN Last administered on 04/25/16 00:51 ; Admin Dose 10 MG; Start 04/13/16 at 20:00 Ondansetron HCl/ Dextrose (Zofran Inj/D5W) 54 ml @ 108 mls/hr Q6H PRN IV NAUSEA AND/OR VOMITING Last administered on 04/24/16 03:01; Admin Dose 108 MLS/ HR; Start 04/15/16 at 12:30 Diagnostic Test (Pha) (Accucheck) 1 ea Q12 XX Last administered on 04/27/16 09 :55; Admin Dose 1 EA; Start 04/18/16 at 09:00 Metoclopramide HCl (Reglan) 10 mg Q8 IV Last administered on 04/27/16 05:38; Admin Dose 10 MG; Start 04/18/16 at 22:00 Lidocaine (Xylocaine 1% (Mpf)) 30 ml ONCE PRN INJ PAIN AND OR ELEVATED TEMP; Start 04/21/16 at 00:00 Lorazepam 1 mg 1 mg Q6H PRN IV ANXIETY Last administered on 04/23/16 13:59; Admin Dose 1 MG; Start 04/21/16 at 18:11 Fentanyl 100 ml @ 2.5 mls/hr TITRATE IV Last administered on 04/27/16 09:21; Admin Dose 10 MLS/HR; Start 04/25/16 at 00:00 Midazolam HCl 50 ml @ 1 mls/hr TITRATE IV Last administered on 04/26/16 07:00 ; Admin Dose 10 MLS/HR; Start 04/25/16 at 00:00 Potassium Cl/ Dextrose/Lact Ringer's 1,000 ml @ 125 mls/hr Q8H IV Last administered on 04/27/16 02:34; Admin Dose 125 MLS/HR; Start 04/25/16 at 02:00 Metronidazole (Flagyl 500 Mg (Pmx)) 100 ml @ 100 mls/hr Q8 IVPB Last administered on 04/27/16 05:38; Admin Dose 100 MLS/HR; Start 04/25/16 at 03:00 Hydromorphone HCl (Dilaudid) 1 mg Q1H PRN IV PAIN LEVEL 1-5 Last administered on 04/26/16 20:05; Admin Dose 1 MG; Start 04/25/16 at 02:00 Hydromorphone HCl 2 mg 2 mg Q1H PRN IV PAIN LEVEL 6-10 Last administered on 09:43; Admin Dose 2 MG; Start 04/25/16 at 02:00 Piperacillin Sod/ Tazobactam Sod 100 ml @ 200 mls/hr Q6 IVPB Last administered on 04/27/16 05:38; Admin Dose 200 MLS/HR; Start 04/26/16 at 12:40 Vancomycin HCl/ Sodium Chloride (Vancocin/NS) 150 ml @ 75 mls/hr Q12H IVPB Last administered on 04/27/16 11:24; Admin Dose 75 MLS/HR; Start 04/27/16 at 11 :00 Octreotide Acetate (Sandostatin) 75 mcg TID SC ; Start 04/27/16 at 13:00 LARRY MEJIA Apr 27, 2016 14:05
--- NOTE | 2016-04-27 14:52 | CONS ---
Date/Time of Note Date/Time of Note DATE: 04/27/16 TIME: 14:48 Assessment/Plan Assessment/Plan Chief Complaint/Hosp Course 61-year-old female with stage IIIB ovarian cancer s/p surgery by Dr. Johnston in May 2015 and 6 cycles of carbo/taxol with persistently elevated CA125 (now 39.6), recently admitted to outside hospital with CT concerning for persistent disease. Pt is now s/p optimal CRS for recurrent disease on 04/08. She was left with < 5mm of residual disease. She now has increased drainage from the wound site and the wound is open. Latest CT done yesterday is consistent with bowel leak. Pt was taken again to OR on 04/24 where she underwent a small bowel resection and anastomosis as well as incisional hernia repair. Intraoperatively pt was noted to have progressive disease and a fistula. - post op care per Dr. Dave - continue Vancomycin and Zosyn - Agree with keeping NPO with TPN as patient has a known fistula - LE Doppler do not reveal evidence of DVT - cont post op care per surgery. pt is ambulating. continue TPN w lipids. pt to try clear liquid diet today - continue Zofran to 8mg IV q 6 prn nausea. nausea now under control - thrombocytopenia and anemia are likely secondary to post op blood loss. her cancer is also contributing to her anemia. Platelets are coming up. pt received 2 units of FFP yesterday - continue lasix - plan to start adjuvant chemotherapy in house when cleared by [facility] onc. plan to give 1 dose of Gemcitabine/ Cisplatin. Approximately 40 min were spent at patient's bedside and in coordination of her care Problems: Consultation Date/Type/Reason Admit Date/Time Apr 02, 2016 at 10:07 Initial Consult Date 04/02/16 Type of Consultation: Hematology/Oncology Reason for Consultation recurrent ovarian cancer Referring Provider: BRIAN ZAZUETA MD 24 HR Interval Summary Free Text/Dictation patient's pain is currently controlled. she is still very weak. draining a lot from her abdominal wound Exam/Review of Systems Vital Signs Vitals Vital Signs Date Time Temp Pulse Resp B/P Pulse Ox O2 Delivery O2 Flow Rate FiO2 04/27/16 12:00 82 04/27/16 12:00 98.4 113/82 100 Nasal Cannula 04/27/16 01:57 3.0 04/26/16 16:00 18 3/19/17 13:05 30 Intake and Output 04/26/16 04/26/16 04/27/16 15:00 23:00 07:00 Intake Total 1026 ml 1129 ml 1030 ml Output Total 800 ml 563 ml 400 ml Balance 226 ml 566 ml 630 ml Exam Constitutional: distress, frail Psych: anxiety, depression Head: normocephalic Eyes: nl conjunctiva ENMT: nl external ears & nose, other (NGt in place) Neck: non-tender, supple Respiratory: clear to auscultation, normal air movement Cardiovascular: regular rate and rhythm Gastrointestinal: other (dressing in place. draining wound), soft Musculoskeletal: nl extremities to inspection, nl gait and stance Extremities: normal pulses Results Result Diagram: 04/27/16 0550 04/27/16 0550 Results 24 hrs Laboratory Tests Test 04/26/16 21:07 04/27/16 05:50 04/27/16 07:00 Bedside Glucose 113 Anion Gap 11 Band Neutrophils % 10.0 H Blood Urea Nitrogen 19 Calcium Level 7.5 L Carbon Dioxide Level 28 Chloride Level 105 Creatinine 0.74 Eosinophils # Eosinophils % Glucose Level 105 Hematocrit 25.3 L Hemoglobin 8.3 #L Lymphocytes # 0.5 L Lymphocytes % 5.0 L Magnesium Level 2.0 Mean Corpuscular Hemoglobin 29.6 Mean Corpuscular Hemoglobin Concent 32.8 Mean Corpuscular Volume 90.4 Mean Platelet Volume 11.2 H Monocytes # 0.4 Monocytes % 4.0 Neutrophils # 8.3 H Neutrophils % 81.0 H Phosphorus Level 2.8 Platelet Count 103 #L Potassium Level 3.1 L Red Blood Count 2.80 #L Red Cell Distribution Width 16.5 H Sodium Level 141 White Blood Count 10.2 Arterial Blood HCO3 26.5 H Arterial Blood Base Excess 3.0 Arterial Blood Oxygen Saturation 97.1 Duran Test N/A Arterial Blood Gas Puncture Site A-Line Arterial Blood Carboxyhemoglobin 0.3 Arterial Blood Date Drawn 04/27/2016 8:10:58 AM Arterial Blood Methemoglobin 0.5 Arterial Blood pCO2 (Temp correct) 35.8 Arterial Blood pH (Temp corrected) 7.487 H Arterial Blood pO2 (Temp corrected) 97.8 Blood Gas A-a O2 Differential 74.0 H Blood Gas Modality NASAL CANNULA Blood Gas Notified Time 04/27/2016 8:40:43 AM Blood Gas Notified Whom JLD Blood Gas Specimen Source Blood arterial Blood Gas Temperature 37.0 FiO2 30.0 Oxyhemoglobin Percent 96.3 Total Hemoglobin 8.7 L Medications Medications Current Medications Acetaminophen/ Hydrocodone Bitart ([place] (5/325)) 1 tab Q6H PRN PO MODERATE PAIN LEVEL 4-6 Last administered on 04/14/16 14:49; Admin Dose 1 TAB; Start at 18:00 Zolpidem Tartrate (Ambien) 5 mg HS PRN PO INSOMNIA Last administered on 23:48; Admin Dose 5 MG; Start 04/01/16 at 22:00 Diphenhydramine HCl (Benadryl) 25 mg Q6H PRN PO ITCHING Last administered on 06:49; Admin Dose 25 MG; Start 04/02/16 at 07:00 Al Hydrox/Mg Hydrox/Simethicone (Mag-Al Plus) 30 ml Q6H PRN PO GASTROINTESTINAL UPSET Last administered on 04/06/16 19:40; Admin Dose 30 ML; Start 04/02/16 at 17:30 Simethicone (Mylicon) 80 mg Q6 PO Last administered on 04/26/16 05:32; Admin Dose 80 MG; Start 04/02/16 at 18:00 Clonidine HCl 1 patch 1 patch Q7D TRANSDERM Last administered on 04/25/16 13: 01; Admin Dose 1 PATCH; Start 04/04/16 at 13:15 Albumin Human (Alburx) 500 ml @ 250 mls/hr ONCE PRN IVPB U/O BELOW 30 ML/HR X 2 HR; Start 04/07/16 at 22:30 Pantoprazole (Protonix Iv) 40 mg DAILY@06 IV Last administered on 04/27/16 05: 38; Admin Dose 40 MG; Start 04/08/16 at 06:00 Hydromorphone HCl (Dilaudid [employer]) 0.3 MG/HR CONTINUOUS 0.3... Q4PCA IV Last administered on 04/24/16 14:42; Admin Dose 0.3 MG; Start 04/12/16 at 18:00 Hydralazine HCl 10 mg 10 mg Q4H PRN IV HTN Last administered on 04/25/16 00:51 ; Admin Dose 10 MG; Start 04/13/16 at 20:00 Ondansetron HCl/ Dextrose (Zofran Inj/D5W) 54 ml @ 108 mls/hr Q6H PRN IV NAUSEA AND/OR VOMITING Last administered on 04/24/16 03:01; Admin Dose 108 MLS/ HR; Start 04/15/16 at 12:30 Diagnostic Test (Pha) (Accucheck) 1 ea Q12 XX Last administered on 04/27/16 09 :55; Admin Dose 1 EA; Start 04/18/16 at 09:00 Metoclopramide HCl (Reglan) 10 mg Q8 IV Last administered on 04/27/16 14:38; Admin Dose 10 MG; Start 04/18/16 at 22:00 Lidocaine (Xylocaine 1% (Mpf)) 30 ml ONCE PRN INJ PAIN AND OR ELEVATED TEMP; Start 04/21/16 at 00:00 Lorazepam 1 mg 1 mg Q6H PRN IV ANXIETY Last administered on 04/23/16 13:59; Admin Dose 1 MG; Start 04/21/16 at 18:11 Fentanyl 100 ml @ 2.5 mls/hr TITRATE IV Last administered on 04/27/16 09:21; Admin Dose 10 MLS/HR; Start 04/25/16 at 00:00 Midazolam HCl 50 ml @ 1 mls/hr TITRATE IV Last administered on 04/26/16 07:00 ; Admin Dose 10 MLS/HR; Start 04/25/16 at 00:00 Potassium Cl/ Dextrose/Lact Ringer's 1,000 ml @ 125 mls/hr Q8H IV Last administered on 04/27/16 02:34; Admin Dose 125 MLS/HR; Start 04/25/16 at 02:00 Metronidazole (Flagyl 500 Mg (Pmx)) 100 ml @ 100 mls/hr Q8 IVPB Last administered on 04/27/16 14:37; Admin Dose 100 MLS/HR; Start 04/25/16 at 03:00 Hydromorphone HCl (Dilaudid) 1 mg Q1H PRN IV PAIN LEVEL 1-5 Last administered on 04/26/16 20:05; Admin Dose 1 MG; Start 04/25/16 at 02:00 Hydromorphone HCl 2 mg 2 mg Q1H PRN IV PAIN LEVEL 6-10 Last administered on 14:24; Admin Dose 2 MG; Start 04/25/16 at 02:00 Piperacillin Sod/ Tazobactam Sod 100 ml @ 200 mls/hr Q6 IVPB Last administered on 04/27/16 14:37; Admin Dose 200 MLS/HR; Start 04/26/16 at 12:40 Vancomycin HCl/ Sodium Chloride (Vancocin/NS) 150 ml @ 75 mls/hr Q12H IVPB Last administered on 04/27/16 11:24; Admin Dose 75 MLS/HR; Start 04/27/16 at 11 :00 Octreotide Acetate (Sandostatin) 75 mcg TID SC Last administered on 04/27/16 13:00; Admin Dose 75 MCG; Start 04/27/16 at 13:00 DEMETRA COLUNGA M.D. Apr 27, 2016 14:52
[2016-04-27 16:41] LABS: ADD SCAN DIFF NO
[2016-04-27 16:43] LABS: BASOPHILS % 0.1 % (0.0-2.0); EOSINOPHILS # 0.1 10^3/ul (0.0-0.5); EOSINOPHILS % 0.8 % (0.0-7.0); HEMATOCRIT 26.4 % (37.0-47.0); HEMOGLOBIN 8.7 g/dl (12.0-16.0); LYMPHOCYTES # 0.7 10^3/ul (0.8-2.9); LYMPHOCYTES % 7.5 % (15.0-51.0); MEAN CORPUSCULAR HEMOGLOBIN 30.2 pg (29.0-33.0); MEAN CORPUSCULAR VOLUME 91.7 fl (82.0-101.0); MEAN PLATELET VOLUME 11.2 fl (7.4-10.4); MONOCYTE # 0.4 10^3/ul (0.3-0.9); MONOCYTES % 4.5 % (0.0-11.0); NEUTROPHIL # 8.5 10^3/ul (1.6-7.5); NEUTROPHILS % 86.4 % (39.0-77.0); PLATELET COUNT 106 10^3/UL (140-415); RED BLOOD COUNT 2.88 10^6/ul (4.20-5.40); RED CELL DISTRIBUTION WIDTH 16.5 % (11.5-14.5); WHITE BLOOD COUNT 9.8 10^3/ul (4.8-10.8)
[2016-04-27 16:51] LABS: POTASSIUM 3.2 mmol/L (3.5-5.1)
[2016-04-27 16:54] LABS: CREATININE 0.77 mg/dl (0.44-1.00)
[2016-04-27 16:55] LABS: CALCIUM 7.5 mg/dl (8.4-10.2)
[2016-04-27 16:56] LABS: INR 1.41; PROTIME 17.3 Sec (12.2-14.2); PT RATIO 1.4
[2016-04-27] MEDS: HYDROmorphONE 0.2 MG/ML PCA IV SCH (16:59)
[2016-04-27] MEDS: ACETAMINOPHEN 1000MG/100ML IV 100 ML IVPB SCH ×2 (17:07→22:45)
[2016-04-27] MEDS: FENTAnyl PATCH 12 MCG/HR TRANSDERM SCH (17:38)
[2016-04-27] MEDS: FAT EMULSION 20% 250 ML IV SCH (18:29)
[2016-04-27] MEDS: TPN 1,000 ML IV SCH (18:31)
[2016-04-27] MEDS: METHYLNALTREXONE 12 MG/0.6 ML VIAL SC SCH (18:38)
[2016-04-27] MEDS: MUPIROCIN 2% 22 GM OINT TOP SCH (21:10)
--- NOTE | 2016-04-27 21:35 | PN ---
Date/Time of Note Date/Time of Note DATE: 04/27/16 TIME: 21:27 Assessment/Plan VTE Prophylaxis VTE Prophylaxis Intervention: SCD's Lines/Catheters IV Catheter Type (from Nrs): Peripheral IV Urinary Cath still in place: Yes Assessment/Plan Chief Complaint/Hosp Course Ovarian cancer with recurrence would benefit from secondary CRS even though persistent disease because the problem is her chemo was delayed 3 months postop. Informed of need to start chemo nathan postop and will call [facility] Problems: Assessment/Plan A- doing reasonably well P- Keep in NGT and NPO on TPN and increase Sandostatin started due to risk of fistula. Must give prbc due to need for oxygenation and add FFP due to risk Subjective 24 Hr Interval Summary Free Text/Dictation S- alert extubated and pain controlled O- Resp- clear CVS- NSR Abd- appropriate tenderness and incision adequately packed and dr Ext- NT less edema A- doing reasonably well P- Keep in NGT and NPO on TPN and increase Sandostatin started due to risk of fistula. Must give prbc due to need for oxygenation and add FFP due to risk Exam/Review of Systems Vital Signs Vitals Vital Signs Date Time Temp Pulse Resp B/P Pulse Ox O2 Delivery O2 Flow Rate FiO2 04/27/16 20:00 98.4 90 133/100 98 Nasal Cannula 04/27/16 18:00 18 04/27/16 01:57 3.0 04/26/16 13:05 30 Intake and Output 04/26/16 04/26/16 04/27/16 15:00 23:00 07:00 Intake Total 1026 ml 1129 ml 1155 ml Output Total 800 ml 563 ml 400 ml Balance 226 ml 566 ml 755 ml Results Result Diagram: 04/27/16 1606 04/27/16 1606 Results 24 hrs Laboratory Tests Test 04/27/16 05:50 04/27/16 07:00 04/27/16 16:06 04/27/16 21:10 Anion Gap 11 14 Band Neutrophils % 10.0 H Blood Urea Nitrogen 19 19 Calcium Level 7.5 L 7.5 L Carbon Dioxide Level 28 26 Chloride Level 105 106 Creatinine 0.74 0.77 Eosinophils # 0.1 Eosinophils % 0.8 Glucose Level 105 86 Hematocrit 25.3 L 26.4 L Hemoglobin 8.3 #L 8.7 L Lymphocytes # 0.5 L 0.7 L Lymphocytes % 5.0 L 7.5 L Magnesium Level 2.0 Mean Corpuscular Hemoglobin 29.6 30.2 Mean Corpuscular Hemoglobin Concent 32.8 33.0 Mean Corpuscular Volume 90.4 91.7 Mean Platelet Volume 11.2 H 11.2 H Monocytes # 0.4 0.4 Monocytes % 4.0 4.5 Neutrophils # 8.3 H 8.5 H Neutrophils % 81.0 H 86.4 H Phosphorus Level 2.8 Platelet Count 103 #L 106 L Potassium Level 3.1 L 3.2 L Red Blood Count 2.80 #L 2.88 L Red Cell Distribution Width 16.5 H 16.5 H Sodium Level 141 143 White Blood Count 10.2 9.8 Arterial Blood HCO3 26.5 H Arterial Blood Base Excess 3.0 Arterial Blood Oxygen Saturation 97.1 Duran Test N/A Arterial Blood Gas Puncture Site A-Line Arterial Blood Carboxyhemoglobin 0.3 Arterial Blood Date Drawn 04/27/2016 8:10:58 AM Arterial Blood Methemoglobin 0.5 Arterial Blood pCO2 (Temp correct) 35.8 Arterial Blood pH (Temp corrected) 7.487 H Arterial Blood pO2 (Temp corrected) 97.8 Blood Gas A-a O2 Differential 74.0 H Blood Gas Modality NASAL CANNULA Blood Gas Notified Time 04/27/2016 8:40:43 AM Blood Gas Notified Whom JLD Blood Gas Specimen Source Blood arterial Blood Gas Temperature 37.0 FiO2 30.0 Oxyhemoglobin Percent 96.3 Total Hemoglobin 8.7 L Basophils # 0.0 Basophils % 0.1 INR International Normalized Ratio 1.41 Nucleated Red Blood Cells # 0.0 Nucleated Red Blood Cells % 0.0 Prothrombin Time 17.3 H Prothrombin Time Ratio 1.4 Bedside Glucose 128 Medications Medications Current Medications Zolpidem Tartrate (Ambien) 5 mg HS PRN PO INSOMNIA Last administered on 23:48; Admin Dose 5 MG; Start 04/01/16 at 22:00 Diphenhydramine HCl (Benadryl) 25 mg Q6H PRN PO ITCHING Last administered on 06:49; Admin Dose 25 MG; Start 04/02/16 at 07:00 Al Hydrox/Mg Hydrox/Simethicone (Mag-Al Plus) 30 ml Q6H PRN PO GASTROINTESTINAL UPSET Last administered on 04/06/16 19:40; Admin Dose 30 ML; Start 04/02/16 at 17:30 Simethicone (Mylicon) 80 mg Q6 PO Last administered on 04/26/16 05:32; Admin Dose 80 MG; Start 04/02/16 at 18:00 Clonidine HCl 1 patch 1 patch Q7D TRANSDERM Last administered on 04/25/16 13: 01; Admin Dose 1 PATCH; Start 04/04/16 at 13:15 Albumin Human (Alburx) 500 ml @ 250 mls/hr ONCE PRN IVPB U/O BELOW 30 ML/HR X 2 HR; Start 04/07/16 at 22:30 Pantoprazole (Protonix Iv) 40 mg DAILY@06 IV Last administered on 04/27/16 05: 38; Admin Dose 40 MG; Start 04/08/16 at 06:00 Hydralazine HCl 10 mg 10 mg Q4H PRN IV HTN Last administered on 04/25/16 00:51 ; Admin Dose 10 MG; Start 04/13/16 at 20:00 Ondansetron HCl/ Dextrose (Zofran Inj/D5W) 54 ml @ 108 mls/hr Q6H PRN IV NAUSEA AND/OR VOMITING Last administered on 04/24/16 03:01; Admin Dose 108 MLS/ HR; Start 04/15/16 at 12:30 Diagnostic Test (Pha) (Accucheck) 1 ea Q12 XX Last administered on 04/27/16 09 :55; Admin Dose 1 EA; Start 04/18/16 at 09:00 Metoclopramide HCl (Reglan) 10 mg Q8 IV Last administered on 04/27/16 21:09; Admin Dose 10 MG; Start 04/18/16 at 22:00 Lorazepam 1 mg 1 mg Q6H PRN IV ANXIETY Last administered on 04/23/16 13:59; Admin Dose 1 MG; Start 04/21/16 at 18:11 Metronidazole 100 ml @ 100 mls/hr Q8 IVPB Last administered on 04/27/16 21:10 ; Admin Dose 100 MLS/HR; Start 04/25/16 at 03:00 Piperacillin Sod/ Tazobactam Sod 100 ml @ 200 mls/hr Q6 IVPB Last administered on 04/27/16 18:32; Admin Dose 200 MLS/HR; Start 04/26/16 at 12:40 Vancomycin HCl/ Sodium Chloride (Vancocin/NS) 150 ml @ 75 mls/hr Q12H IVPB Last administered on 04/27/16 11:24; Admin Dose 75 MLS/HR; Start 04/27/16 at 11 :00 Octreotide Acetate (Sandostatin) 75 mcg TID SC Last administered on 04/27/16 21:09; Admin Dose 75 MCG; Start 04/27/16 at 13:00 Hydromorphone HCl (Dilaudid [employer]) 0.3 MG/HR CONTINUOUS R... Q4PCA IV Last administered on 04/27/16 16:59; Admin Dose 0.3 MG; Start 04/27/16 at 15:30 Methylnaltrexone [place] 12 mg 12 mg AM SC Last administered on 04/27/16 18:38 ; Admin Dose 12 MG; Start 04/27/16 at 16:30 Acetaminophen (Ofirmev 1000mg/ 100ml Iv) 100 ml @ 400 mls/hr Q6H IVPB Last administered on 04/27/16 17:07; Admin Dose 400 MLS/HR; Start 04/27/16 at 16:00 Fentanyl 1 patch 1 patch Q72H TRANSDERM Last administered on 04/27/16 17:38; Admin Dose 1 PATCH; Start 04/27/16 at 17:00 Fat Emulsion Intravenous 250 ml @ 10.417 mls/ hr Q24H IV Last administered on 04/27/16 18:29; Admin Dose 10.417 MLS/HR; Start 04/27/16 at 18:00 Total Parenteral Nutrition (Tpn) 1,000 ml @ 70 mls/hr [id number] IV Last administered on 04/27/16 18:31; Admin Dose 70 MLS/HR; Start 04/27/16 at 18:00 Mupirocin (Bactroban) 1 applic BID TOP Last administered on 04/27/16 21:10; Admin Dose 1 APPLIC; Start 04/27/16 at 21:00 ANDI WADDELL MD Apr 27, 2016 21:35
[2016-04-27] MEDS ORDERED: FUROSEMIDE 20 MG INJ IV ONE (23:00)
[2016-04-27] MEDS ORDERED: DIPHENHYDRAMINE 50 MG INJ IV ONE (23:00)
[2016-04-28] MEDS: PIPER-TAZO 3.375 GM IV (PMX) 100 ML IVPB SCH ×5 (00:13→22:32)
[2016-04-28] MEDS: VANCOMYCIN 750 MG in SOD CHLORIDE 0.9% 150 ML IVPB SCH ×3 (00:53→11:35)
[2016-04-28 01:32] VITALS: BP 141/82; RESP 20
[2016-04-28] MEDS: ACETAMINOPHEN 1000MG/100ML IV 100 ML IVPB SCH ×5 (03:41→23:17)
[2016-04-28] MEDS: METOCLOPRAMIDE 10 MG INJ IV SCH ×4 (06:06→23:17)
[2016-04-28] MEDS: PANTOPRAZOLE 40 MG INJ IV SCH (06:06)
[2016-04-28] MEDS: metroNIDAZOLE 500 MG/NS (PMX) 100 ML IVPB SCH ×3 (07:30→23:40)
[2016-04-28 07:38] VITALS: BP 133/77; RESP 20
[2016-04-28] MEDS: HYDROmorphONE 0.2 MG/ML PCA IV SCH ×2 (08:32→23:14)
[2016-04-28] MEDS: TPN 1,000 ML IV SCH ×2 (08:36→23:41)
[2016-04-28] MEDS: OCTREOTIDE 50 MCG INJ SC SCH ×3 (09:00→21:00)
[2016-04-28] MEDS: MUPIROCIN 2% 22 GM OINT TOP SCH ×2 (09:00→21:00)
[2016-04-28] MEDS: ACCU-CHEK XX SCH ×2 (09:20→21:00)
[2016-04-28] MEDS: LORAZEPAM 2 MG INJ IV PRN (09:41)
--- NOTE | 2016-04-28 11:55 | CONS ---
Date/Time of Note Date/Time of Note DATE: 04/28/16 TIME: 11:53 Assessment/Plan Assessment/Plan Additional Assessment/Plan Assessment recommendations; 1. Patient admitted for metastatic ovarian cancer for debulking surgery doing very well. 2. Postop respiratory failure, now successfully extubated. 3. Anemia., Patient requiring periodic blood transfusion on as-needed basis. Continue current treatment. We are going to sign off. Thanks for the referral. Please reconsult if needed. Consultation Date/Type/Reason Admit Date/Time Apr 02, 2016 at 10:07 Initial Consult Date 04/02/16 Type of Consultation: Pulmonary Referring Provider: BRIAN ZAZUETA MD 24 HR Interval Summary Free Text/Dictation Patient condition is stable. Denies any shortness of breath, fever chills, abdominal pain is improving. Denies any nausea vomiting. General exam; elderly lady, currently in no distress. Awake and alert. Exam/Review of Systems Vital Signs Vitals Vital Signs Date Time Temp Pulse Resp B/P Pulse Ox O2 Delivery O2 Flow Rate FiO2 04/28/16 07:38 98.1 59 20 133/77 98 04/28/16 02:25 2.0 04/28/16 00:45 Nasal Cannula 04/26/16 13:05 30 Intake and Output 04/27/16 04/27/16 04/28/16 15:00 23:00 07:00 Intake Total 625 ml 100 ml 1172.4 ml Output Total 395 ml 470 ml 600 ml Balance 230 ml -370 ml 572.4 ml Exam HEENT exam is; supple neck, no JVD. No lymphadenopathy. Midline trachea. No thyromegaly. Pupils are equal and reactive to light. Patient has fair dentition. Chest examination ID: Clear to auscultation bilaterally. S1-S2 audible, no murmurs. Regular rhythm. Abdomen exam is; soft, midline dressing in place. Bowel sounds are audible. Mildly tender. Extremity exam is; trace peripheral edema. Next [employer]ER examination; no focal deficit. Results Result Diagram: 04/27/16 1606 04/27/16 1606 Results 24 hrs Laboratory Tests Test 04/27/16 16:06 04/27/16 21:10 04/28/16 09:16 Anion Gap 14 Basophils # 0.0 Basophils % 0.1 Blood Urea Nitrogen 19 Calcium Level 7.5 L Carbon Dioxide Level 26 Chloride Level 106 Creatinine 0.77 Eosinophils # 0.1 Eosinophils % 0.8 Glucose Level 86 Hematocrit 26.4 L Hemoglobin 8.7 L INR International Normalized Ratio 1.41 Lymphocytes # 0.7 L Lymphocytes % 7.5 L Mean Corpuscular Hemoglobin 30.2 Mean Corpuscular Hemoglobin Concent 33.0 Mean Corpuscular Volume 91.7 Mean Platelet Volume 11.2 H Monocytes # 0.4 Monocytes % 4.5 Neutrophils # 8.5 H Neutrophils % 86.4 H Nucleated Red Blood Cells # 0.0 Nucleated Red Blood Cells % 0.0 Platelet Count 106 L Potassium Level 3.2 L Prothrombin Time 17.3 H Prothrombin Time Ratio 1.4 Red Blood Count 2.88 L Red Cell Distribution Width 16.5 H Sodium Level 143 White Blood Count 9.8 Bedside Glucose 128 152 Medications Medications Current Medications Zolpidem Tartrate (Ambien) 5 mg HS PRN PO INSOMNIA Last administered on 23:48; Admin Dose 5 MG; Start 04/01/16 at 22:00 Diphenhydramine HCl (Benadryl) 25 mg Q6H PRN PO ITCHING Last administered on 06:49; Admin Dose 25 MG; Start 04/02/16 at 07:00 Al Hydrox/Mg Hydrox/Simethicone (Mag-Al Plus) 30 ml Q6H PRN PO GASTROINTESTINAL UPSET Last administered on 04/06/16 19:40; Admin Dose 30 ML; Start 04/02/16 at 17:30 Clonidine HCl 1 patch 1 patch Q7D TRANSDERM Last administered on 04/25/16 13: 01; Admin Dose 1 PATCH; Start 04/04/16 at 13:15 Albumin Human (Alburx) 500 ml @ 250 mls/hr ONCE PRN IVPB U/O BELOW 30 ML/HR X 2 HR; Start 04/07/16 at 22:30 Pantoprazole (Protonix Iv) 40 mg DAILY@06 IV Last administered on 04/28/16 06: 06; Admin Dose 40 MG; Start 04/08/16 at 06:00 Hydralazine HCl 10 mg 10 mg Q4H PRN IV HTN Last administered on 04/25/16 00:51 ; Admin Dose 10 MG; Start 04/13/16 at 20:00 Ondansetron HCl/ Dextrose (Zofran Inj/D5W) 54 ml @ 108 mls/hr Q6H PRN IV NAUSEA AND/OR VOMITING Last administered on 04/24/16 03:01; Admin Dose 108 MLS/ HR; Start 04/15/16 at 12:30 Diagnostic Test (Pha) (Accucheck) 1 ea Q12 XX Last administered on 04/28/16 09 :20; Admin Dose 1 EA; Start 04/18/16 at 09:00 Metoclopramide HCl (Reglan) 10 mg Q8 IV Last administered on 04/28/16 06:06; Admin Dose 10 MG; Start 04/18/16 at 22:00 Lorazepam 1 mg 1 mg Q6H PRN IV ANXIETY Last administered on 04/28/16 09:41; Admin Dose 1 MG; Start 04/21/16 at 18:11 Metronidazole 100 ml @ 100 mls/hr Q8 IVPB Last administered on 04/27/16 21:10 ; Admin Dose 100 MLS/HR; Start 04/25/16 at 03:00 Piperacillin Sod/ Tazobactam Sod 100 ml @ 200 mls/hr Q6 IVPB Last administered on 04/28/16 00:13; Admin Dose 200 MLS/HR; Start 04/26/16 at 12:40 Vancomycin HCl/ Sodium Chloride (Vancocin/NS) 150 ml @ 75 mls/hr Q12H IVPB Last administered on 04/28/16 11:35; Admin Dose 75 MLS/HR; Start 04/27/16 at 11 :00 Octreotide Acetate (Sandostatin) 75 mcg TID SC Last administered on 04/27/16 21:09; Admin Dose 75 MCG; Start 04/27/16 at 13:00 Hydromorphone HCl (Dilaudid [employer]) 0.3 MG/HR CONTINUOUS R... Q4PCA IV Last administered on 04/28/16 08:32; Admin Dose 6 MG; Start 04/27/16 at 15:30 Methylnaltrexone [place] 12 mg 12 mg AM SC Last administered on 04/27/16 18:38 ; Admin Dose 12 MG; Start 04/27/16 at 16:30 Acetaminophen (Ofirmev 1000mg/ 100ml Iv) 100 ml @ 400 mls/hr Q6H IVPB Last administered on 04/28/16 11:11; Admin Dose 400 MLS/HR; Start 04/27/16 at 16:00 Fentanyl 1 patch 1 patch Q72H TRANSDERM Last administered on 04/27/16 17:38; Admin Dose 1 PATCH; Start 04/27/16 at 17:00 Fat Emulsion Intravenous 250 ml @ 10.417 mls/ hr Q24H IV Last administered on 04/27/16 18:29; Admin Dose 10.417 MLS/HR; Start 04/27/16 at 18:00 Total Parenteral Nutrition (Tpn) 1,000 ml @ 70 mls/hr [id number] IV Last administered on 04/28/16 08:36; Admin Dose 70 MLS/HR; Start 04/27/16 at 18:00 Mupirocin (Bactroban) 1 applic BID TOP Last administered on 04/27/16 21:10; Admin Dose 1 APPLIC; Start 04/27/16 at 21:00 SUKUMAR BROWN Apr 28, 2016 11:55
[2016-04-28 11:56] LABS: CREATININE 0.73 mg/dl (0.44-1.00)
[2016-04-28 11:57] LABS: CALCIUM 7.9 mg/dl (8.4-10.2); MAGNESIUM 1.9 mg/dl (1.7-2.5); PHOSPHORUS 2.9 mg/dl (2.5-4.9)
[2016-04-28] MEDS: FUROSEMIDE 20 MG INJ IV SCH ×2 (12:24→18:00)
[2016-04-28] MEDS: METHYLNALTREXONE 12 MG/0.6 ML VIAL SC SCH (12:25)
--- NOTE | 2016-04-28 13:23 | CONS ---
DATE OF ADMISSION: 04/02/2016 DATE OF CONSULTATION: 04/28/2016 TYPE OF CONSULTATION: Pain management HISTORY OF PRESENT ILLNESS: Most of the information is taken the patient's medical records and in s peaking to her , and Dr. Foy also who is her primary care oncologist, and as far as her nicole n symptoms taken from patient directly in [place]. By history, this lady is a 61-year-old female wh o has a complicated past medical history, but was admitted on 04/01/2016 with intractable abdominal discomfort. She has a history of ovarian cancer and is being seen also by Dr. Johnston. She was ad mitted with abdominal discomfort. She was treated aggressively for electrolyte abnormalities. She was rehydrated. Pain was controlled and nausea and vomiting were controlled at that time also appro priately. Past medical history is status post total abdominal hysterectomy, bilateral oophorectomy , colon resection, status post hernia repair, status post right shoulder surgery x2. The patient co ntinues to have abdominal discomfort, which she describes as bilateral lower quadrants without radia tions into her back or into her bilateral lower extremities. She is somewhat nauseated associated w ith this continual pain. There is no past medical history of substance abuse. 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 She was rec eiving fentanyl with p.r.n. breakthrough Dilaudid and has done well with that, but prior has been un able to wean her off the fentanyl and to continue with the Dilaudid Multiple medications have been tried in the past in so far as pain control without significant success. MEDICATIONS: Please refer to reconciliation sheets. ALLERGIES: NO KNOWN DRUG ALLERGIES. MAJOR MEDICAL PROBLEMS IN THE PAST: As per history of present illness. SOCIAL HISTORY: Nonsmoker, nondrinker, does not abuse any medications. FAMILY HISTORY: Noncontributory. REVIEW OF SYSTEMS: A 12-point review of systems otherwise unremarkable except which is as per histo ry of present illness. PHYSICAL EXAMINATION: VITAL SIGNS: Blood pressure 133/77, pulse of 59, respirations of 20, temperature 98.1 degrees, 98% saturation on 2 liters FIO2. HEENT: She is normocephalic and atraumatic. Anicteric, acyanotic on examination. CHEST: Shows bilateral clear breath sounds throughout both lung [place]. COR: S1, S2, without S3, S4, murmur, gallop, rub. Normal rate, normal rhythm on examination. ABDOMEN: Grossly benign. Distant bowel sounds throughout both quadrants. NEUROLOGIC: She is oriented x3. Cranial nerves II through XII grossly intact. Motor and sensory f indings are grossly within normal limits. LABORATORY DATA: Have been reviewed. White blood cell count 9.8, hemoglobin 8.7, hematocrit 26.4, platelet count 106,000. Chemistry: Serum sodium 143, potassium 3.2, chloride 106, bicarbonate 26, BUN 19, creatinine 0.77, blood sugar of 86. ASSESSMENT AND PLAN: This is a very pleasant 61-year-old female who has a history of ovarian cancer , who is status post partial response with [place]-based chemotherapy. However, has had over the l ast 9 months persistent disease. I have had a discussion with patient's oncologist, Dr. Foy and brennon sims options. At this time, I will begin a fentanyl patch on the patient and continue with her Dilaudid as ordered, adjust it to a lower dose at 0.3 mg to lockout every 30 minutes. I will not stop the continuous until 12 hours and then at that time stop the continuous and patient will ju st remain on a PNEUMATIC SYSTEMS OPERATOR Dilaudid. I have also started her off on fentanyl 12 mcg to be changed every 72 hours, although I may adjust that to every 48 hours, depending upon whether or not she has breakthro ugh pain. Additionally, I have started her off on a continuous dose of Tylenol intravenously sched uled. I will follow her closely while in-house. Other medical problems as per history of present i llness. Additionally, I have begun patient on methylnaltrexone at 12 mcg to be given every other da y and have stopped as many of the sedatives as possible, but if need be I will restart at a lower d ose. Dictated By: LEIF GLASS MD, LP/RUDDY Conf#: [id number] DID#: [id number]
--- NOTE | 2016-04-28 13:40 | CONS ---
Date/Time of Note Date/Time of Note DATE: 04/28/16 TIME: 13:34 Assessment/Plan Assessment/Plan Chief Complaint/Hosp Course 61-year-old female with stage IIIB ovarian cancer s/p surgery by Dr. Johnston in May 2015 and 6 cycles of carbo/taxol with persistently elevated CA125, recently admitted to outside hospital with CT concerning for persistent disease. Pt is now s/p optimal CRS for recurrent disease on 04/08. She was left with < 5mm of residual disease. She now has increased drainage from the wound site and the wound is open. Latest CT done yesterday is consistent with bowel leak. Pt was taken again to OR on 04/24 where she underwent a small bowel resection and anastomosis as well as incisional hernia repair. Intraoperatively pt was noted to have progressive disease and a fistula. - post op care per Dr. Dave. Agree with FFP and Blood transfusion to increase perfusion to wound. will f/u CBC -continue Sandostatin as the drainage appears to be less with this - continue Vancomycin and Zosyn - Agree with keeping NPO with TPN as patient has a known fistula - LE Doppler do not reveal evidence of DVT - continue Zofran to 8mg IV q 6 prn nausea. nausea now under control - plan to start adjuvant chemotherapy in house when cleared by [facility]. plan to give 1 dose of Gemcitabine/ Cisplatin. - appreciate pain management recs. Pt now on Fentanyl patch,and Dilaudid CRANE CHASER Approximately 40 min were spent at patient's bedside and in coordination of her care Problems: Consultation Date/Type/Reason Admit Date/Time Apr 02, 2016 at 10:07 Initial Consult Date 04/02/16 Type of Consultation: Hematology Reason for Consultation recurrent ovarian cancer Referring Provider: BRIAN ZAZUETA MD 24 HR Interval Summary Free Text/Dictation pt's remains very weak. denies nausea. still with NGT. was given 2x FFP and 2 units of PRBCs . started on fentanyl path and relistor. had a BM today. Exam/Review of Systems Vital Signs Vitals Vital Signs Date Time Temp Pulse Resp B/P Pulse Ox O2 Delivery O2 Flow Rate FiO2 04/28/16 07:38 98.1 59 20 133/77 98 04/28/16 02:25 2.0 04/28/16 00:45 Nasal Cannula 3/19/17 13:05 30 Intake and Output 04/27/16 04/27/16 04/28/16 15:00 23:00 07:00 Intake Total 625 ml 100 ml 1172.4 ml Output Total 395 ml 470 ml 600 ml Balance 230 ml -370 ml 572.4 ml Exam Constitutional: distress, frail Psych: anxiety Head: normocephalic Eyes: nl conjunctiva ENMT: nl external ears & nose Neck: non-tender, supple Respiratory: clear to auscultation, normal air movement Cardiovascular: nl pulses, regular rate and rhythm Gastrointestinal: other (open surgical wound draining less), surgical scars Musculoskeletal: nl extremities to inspection, nl gait and stance, swelling Results Result Diagram: 04/27/16 1606 04/28/16 1110 Results 24 hrs Laboratory Tests Test 04/27/16 16:06 04/27/16 21:10 04/28/16 09:16 04/28/16 11:10 Anion Gap 14 12 Basophils # 0.0 Basophils % 0.1 Blood Urea Nitrogen 19 20 Calcium Level 7.5 L 7.9 L Carbon Dioxide Level 26 29 Chloride Level 106 104 Creatinine 0.77 0.73 Eosinophils # 0.1 Eosinophils % 0.8 Glucose Level 86 134 # Hematocrit 26.4 L Hemoglobin 8.7 L INR International Normalized Ratio 1.41 Lymphocytes # 0.7 L Lymphocytes % 7.5 L Mean Corpuscular Hemoglobin 30.2 Mean Corpuscular Hemoglobin Concent 33.0 Mean Corpuscular Volume 91.7 Mean Platelet Volume 11.2 H Monocytes # 0.4 Monocytes % 4.5 Neutrophils # 8.5 H Neutrophils % 86.4 H Nucleated Red Blood Cells # 0.0 Nucleated Red Blood Cells % 0.0 Platelet Count 106 L Potassium Level 3.2 L 3.0 L Prothrombin Time 17.3 H Prothrombin Time Ratio 1.4 Red Blood Count 2.88 L Red Cell Distribution Width 16.5 H Sodium Level 143 142 White Blood Count 9.8 Bedside Glucose 128 152 Magnesium Level 1.9 Phosphorus Level 2.9 Medications Medications Current Medications Zolpidem Tartrate (Ambien) 5 mg HS PRN PO INSOMNIA Last administered on 23:48; Admin Dose 5 MG; Start 04/01/16 at 22:00 Diphenhydramine HCl (Benadryl) 25 mg Q6H PRN PO ITCHING Last administered on 06:49; Admin Dose 25 MG; Start 04/02/16 at 07:00 Al Hydrox/Mg Hydrox/Simethicone (Mag-Al Plus) 30 ml Q6H PRN PO GASTROINTESTINAL UPSET Last administered on 04/06/16 19:40; Admin Dose 30 ML; Start 04/02/16 at 17:30 Clonidine HCl 1 patch 1 patch Q7D TRANSDERM Last administered on 04/25/16 13: 01; Admin Dose 1 PATCH; Start 04/04/16 at 13:15 Albumin Human (Alburx) 500 ml @ 250 mls/hr ONCE PRN IVPB U/O BELOW 30 ML/HR X 2 HR; Start 04/07/16 at 22:30 Pantoprazole (Protonix Iv) 40 mg DAILY@06 IV Last administered on 04/28/16 06: 06; Admin Dose 40 MG; Start 04/08/16 at 06:00 Hydralazine HCl 10 mg 10 mg Q4H PRN IV HTN Last administered on 04/25/16 00:51 ; Admin Dose 10 MG; Start 04/13/16 at 20:00 Ondansetron HCl/ Dextrose (Zofran Inj/D5W) 54 ml @ 108 mls/hr Q6H PRN IV NAUSEA AND/OR VOMITING Last administered on 04/24/16 03:01; Admin Dose 108 MLS/ HR; Start 04/15/16 at 12:30 Diagnostic Test (Pha) (Accucheck) 1 ea Q12 XX Last administered on 04/28/16 09 :20; Admin Dose 1 EA; Start 04/18/16 at 09:00 Metoclopramide HCl (Reglan) 10 mg Q8 IV Last administered on 04/28/16 06:06; Admin Dose 10 MG; Start 04/18/16 at 22:00 Lorazepam 1 mg 1 mg Q6H PRN IV ANXIETY Last administered on 04/28/16 09:41; Admin Dose 1 MG; Start 04/21/16 at 18:11 Metronidazole 100 ml @ 100 mls/hr Q8 IVPB Last administered on 04/27/16 21:10 ; Admin Dose 100 MLS/HR; Start 04/25/16 at 03:00 Piperacillin Sod/ Tazobactam Sod 100 ml @ 200 mls/hr Q6 IVPB Last administered on 04/28/16 12:40; Admin Dose 200 MLS/HR; Start 04/26/16 at 12:40 Vancomycin HCl/ Sodium Chloride (Vancocin/NS) 150 ml @ 75 mls/hr Q12H IVPB Last administered on 04/28/16 11:35; Admin Dose 75 MLS/HR; Start 04/27/16 at 11 :00 Octreotide Acetate (Sandostatin) 75 mcg TID SC Last administered on 04/27/16 21:09; Admin Dose 75 MCG; Start 04/27/16 at 13:00 Hydromorphone HCl (Dilaudid CRANE CHASER) 0.3 MG/HR CONTINUOUS R... Q4PCA IV Last administered on 04/28/16 08:32; Admin Dose 6 MG; Start 04/27/16 at 15:30 Methylnaltrexone [place] 12 mg 12 mg AM SC Last administered on 04/28/16 12:25 ; Admin Dose 12 MG; Start 04/27/16 at 16:30 Acetaminophen (Ofirmev 1000mg/ 100ml Iv) 100 ml @ 400 mls/hr Q6H IVPB Last administered on 04/28/16 11:11; Admin Dose 400 MLS/HR; Start 04/27/16 at 16:00 Fentanyl 1 patch 1 patch Q72H TRANSDERM Last administered on 04/27/16 17:38; Admin Dose 1 PATCH; Start 04/27/16 at 17:00 Fat Emulsion Intravenous 250 ml @ 10.417 mls/ hr Q24H IV Last administered on 04/27/16 18:29; Admin Dose 10.417 MLS/HR; Start 04/27/16 at 18:00 Total Parenteral Nutrition (Tpn) 1,000 ml @ 70 mls/hr [id number] IV Last administered on 04/28/16 08:36; Admin Dose 70 MLS/HR; Start 04/27/16 at 18:00 Mupirocin (Bactroban) 1 applic BID TOP Last administered on 04/27/16 21:10; Admin Dose 1 APPLIC; Start 04/27/16 at 21:00 DEMETRA COLUNGA M.D. Apr 28, 2016 13:40
--- NOTE | 2016-04-28 16:41 | PN ---
Date/Time of Note Date/Time of Note DATE: 04/28/16 TIME: 16:36 Assessment/Plan VTE Prophylaxis VTE Prophylaxis Intervention: SCD's Lines/Catheters IV [facility] port A cath Urinary Cath still in place: Yes Reason Cath still needed: urinary retention Assessment/Plan Chief Complaint/Hosp Course ASSESSMENT AND PLAN: - Progressive recurrent ovarian carcinoma. Status post chemotherapy. Dr. Foy is following in hematology/oncology consultation. Dr. Johnston is following from a surgery standpoint. S/p bowel resection 04/07. Status post debulking surgery on 04/24. Continue follow-up per general surgery recommendations. Continue TPN and lipids. Patient is currently on octreotide. Continue broad-spectrum antibiotics. Continue wound care according to surgery recommendations. - Hypoxemic respiratory failure postoperatively, patient was weaned off ventilator extubated. Continue supplemental oxygen incentive spirometer. - Intractable abdominal pain. Dr. Green is following in pain management consultation. 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 - Bilateral lower extremities edema, ultrasound is negative for DVT, continue Lasix, monitor electrolytes. -Hypokalemia, potassium replacement ordered. Continue Lovenox for deep venous thrombosis prophylaxis and Protonix for peptic ulcer disease prophylaxis. Further recommendations based on clinical course. Plan of care was discussed with Dr. Bravo. Problems: Subjective 24 Hr Interval Summary Free Text/Dictation Patient is undergoing blood product transfusion, comfortable with fentanyl patch and Dilaudid PUMP HOUSE ENGINEER, remains afebrile. Exam/Review of Systems Vital Signs Vitals Vital Signs Date Time Temp Pulse Resp B/P Pulse Ox O2 Delivery O2 Flow Rate FiO2 04/28/16 08:30 Nasal Cannula 2.0 04/28/16 07:38 98.1 59 20 133/77 98 04/26/16 13:05 30 Intake and Output 04/27/16 04/27/16 04/28/16 15:00 23:00 07:00 Intake Total 625 ml 100 ml 1172.4 ml Output Total 395 ml 470 ml 600 ml Balance 230 ml -370 ml 572.4 ml Exam PHYSICAL ASSESSMENT: GENERAL: Well-developed, well-nourished female currently is awake, alert. HEENT: Head is atraumatic, normocephalic. NGT to LWS. NECK: Supple, no cervical lymphadenopathy, no thyromegaly. CHEST: Lungs clear bilaterally. There is no rhonchi, wheezes, rales noted. CARDIOVASCULAR: Normal S1, S2. No murmurs, gallops, clicks, rubs noted. ABDOMEN: Round, soft, s/p surgery. SKIN: There is no rash, petechiae noted. EXTREMITIES: No edema, clubbing, cyanosis. Pulses equal bilaterally 2+. Mild edema. SKIN: There is no rash or petechiae noted. NEUROLOGICAL: The patient is awake, alert and oriented x4. Results Result Diagram: 04/27/16 1606 04/28/16 1110 Results 24 hrs Laboratory Tests Test 04/27/16 21:10 04/28/16 09:16 04/28/16 11:10 Bedside Glucose 128 152 Anion Gap 12 Blood Urea Nitrogen 20 Calcium Level 7.9 L Carbon Dioxide Level 29 Chloride Level 104 Creatinine 0.73 Glucose Level 134 # Magnesium Level 1.9 Phosphorus Level 2.9 Potassium Level 3.0 L Sodium Level 142 Medications Medications Current Medications Zolpidem Tartrate (Ambien) 5 mg HS PRN PO INSOMNIA Last administered on 23:48; Admin Dose 5 MG; Start 04/01/16 at 22:00 Diphenhydramine HCl (Benadryl) 25 mg Q6H PRN PO ITCHING Last administered on 06:49; Admin Dose 25 MG; Start 04/02/16 at 07:00 Al Hydrox/Mg Hydrox/Simethicone (Mag-Al Plus) 30 ml Q6H PRN PO GASTROINTESTINAL UPSET Last administered on 04/06/16 19:40; Admin Dose 30 ML; Start 04/02/16 at 17:30 Clonidine HCl 1 patch 1 patch Q7D TRANSDERM Last administered on 04/25/16 13: 01; Admin Dose 1 PATCH; Start 04/04/16 at 13:15 Albumin Human (Alburx) 500 ml @ 250 mls/hr ONCE PRN IVPB U/O BELOW 30 ML/HR X 2 HR; Start 04/07/16 at 22:30 Pantoprazole (Protonix Iv) 40 mg DAILY@06 IV Last administered on 04/28/16 06: 06; Admin Dose 40 MG; Start 04/08/16 at 06:00 Hydralazine HCl 10 mg 10 mg Q4H PRN IV HTN Last administered on 04/25/16 00:51 ; Admin Dose 10 MG; Start 04/13/16 at 20:00 Ondansetron HCl/ Dextrose (Zofran Inj/D5W) 54 ml @ 108 mls/hr Q6H PRN IV NAUSEA AND/OR VOMITING Last administered on 04/24/16 03:01; Admin Dose 108 MLS/ HR; Start 04/15/16 at 12:30 Diagnostic Test (Pha) (Accucheck) 1 ea Q12 XX Last administered on 04/28/16 09 :20; Admin Dose 1 EA; Start 04/18/16 at 09:00 Metoclopramide HCl (Reglan) 10 mg Q8 IV Last administered on 04/28/16 13:45; Admin Dose 10 MG; Start 04/18/16 at 22:00 Lorazepam 1 mg 1 mg Q6H PRN IV ANXIETY Last administered on 04/28/16 09:41; Admin Dose 1 MG; Start 04/21/16 at 18:11 Metronidazole 100 ml @ 100 mls/hr Q8 IVPB Last administered on 04/28/16 14:38 ; Admin Dose 100 MLS/HR; Start 04/25/16 at 03:00 Piperacillin Sod/ Tazobactam Sod 100 ml @ 200 mls/hr Q6 IVPB Last administered on 04/28/16 12:40; Admin Dose 200 MLS/HR; Start 04/26/16 at 12:40 Vancomycin HCl/ Sodium Chloride (Vancocin/NS) 150 ml @ 75 mls/hr Q12H IVPB Last administered on 04/28/16 11:35; Admin Dose 75 MLS/HR; Start 04/27/16 at 11 :00 Octreotide Acetate (Sandostatin) 75 mcg TID SC Last administered on 04/28/16 15:30; Admin Dose 76 MCG; Start 04/27/16 at 13:00 Hydromorphone HCl (Dilaudid PUMP HOUSE ENGINEER) 0.3 MG/HR CONTINUOUS R... Q4PCA IV Last administered on 04/28/16 08:32; Admin Dose 6 MG; Start 04/27/16 at 15:30 Methylnaltrexone [place] 12 mg 12 mg AM SC Last administered on 04/28/16 12:25 ; Admin Dose 12 MG; Start 3/20/17 at 16:30 Acetaminophen (Ofirmev 1000mg/ 100ml Iv) 100 ml @ 400 mls/hr Q6H IVPB Last administered on 04/28/16 15:29; Admin Dose 400 MLS/HR; Start 04/27/16 at 16:00 Fentanyl 1 patch 1 patch Q72H TRANSDERM Last administered on 04/27/16 17:38; Admin Dose 1 PATCH; Start 04/27/16 at 17:00 Fat Emulsion Intravenous 250 ml @ 10.417 mls/ hr Q24H IV Last administered on 04/27/16 18:29; Admin Dose 10.417 MLS/HR; Start 04/27/16 at 18:00 Total Parenteral Nutrition (Tpn) 1,000 ml @ 70 mls/hr [id number] IV Last administered on 04/28/16 08:36; Admin Dose 70 MLS/HR; Start 04/27/16 at 18:00 Mupirocin (Bactroban) 1 applic BID TOP Last administered on 04/27/16 21:10; Admin Dose 1 APPLIC; Start 04/27/16 at 21:00 Miscellaneous Information (*Rx Drug Level Order Reminder*) VANCO TROUGH @ 2, 200 ON... ONCE ONCE XX ; Start 04/28/16 at 22:00; Stop 04/28/16 at 22:01 LARRY MEJIA Apr 28, 2016 16:41
[2016-04-28] MEDS ORDERED: POTASSIUM CHLORIDE 30 MEQ in SOD CHLORIDE 0.9% 150 ML IVPB ONE (17:00)
[2016-04-28] MEDS: FAT EMULSION 20% 250 ML IV SCH (17:17)
--- NOTE | 2016-04-28 18:13 | RADRPT ---
Vent Rate: 91 bpm RR Interval: 0 msec IA Interval: 162 msec QRS Duration: 80 msec QT Interval: 354 msec QTC Interval: 435 msec P-R-T [place]: 49 - -39 - 53 degrees Normal sinus rhythm Left axis deviation Low voltage QRS Abnormal ECG Electronically Signed By: Rich Landin [id number]
[2016-04-28 19:48] VITALS: BP 143/80; RESP 21
[2016-04-29] MEDS: OCTREOTIDE 50 MCG INJ SC SCH ×5 (00:27→21:49)
[2016-04-29] MEDS: VANCOMYCIN 750 MG in SOD CHLORIDE 0.9% 150 ML IVPB SCH ×2 (00:43→12:09)
[2016-04-29] MEDS: ACETAMINOPHEN 1000MG/100ML IV 100 ML IVPB SCH ×5 (04:00→23:22)
[2016-04-29] MEDS: ONDANSETRON INJ 8 MG in DEXTROSE 5% 50 ML IV PRN ×2 (05:13→10:42)
[2016-04-29 05:32] VITALS: BP 141/77; PULSE 73
[2016-04-29] MEDS: FUROSEMIDE 20 MG INJ IV SCH ×2 (05:35→17:36)
[2016-04-29] MEDS: PANTOPRAZOLE 40 MG INJ IV SCH (05:35)
[2016-04-29 05:50] LABS: ADD SCAN DIFF NO
[2016-04-29 05:55] LABS: ABNORMAL IP MESSAGE 1; BASOPHILS % 0.2 % (0.0-2.0); EOSINOPHILS # 0.2 10^3/ul (0.0-0.5); EOSINOPHILS % 1.9 % (0.0-7.0); HEMATOCRIT 33.7 % (37.0-47.0); HEMOGLOBIN 11.2 g/dl (12.0-16.0); LYMPHOCYTES # 0.8 10^3/ul (0.8-2.9); LYMPHOCYTES % 9.3 % (15.0-51.0); MEAN CORPUSCULAR HEMOGLOBIN 29.3 pg (29.0-33.0); MEAN CORPUSCULAR HGB CONC 33.2 g/dl (32.0-37.0); MEAN CORPUSCULAR VOLUME 88.2 fl (82.0-101.0); MEAN PLATELET VOLUME 11.4 fl (7.4-10.4); MONOCYTE # 0.5 10^3/ul (0.3-0.9); MONOCYTES % 5.9 % (0.0-11.0); NEUTROPHIL # 7.3 10^3/ul (1.6-7.5); NEUTROPHILS % 81.6 % (39.0-77.0); PLATELET COUNT 87 10^3/UL (140-415); RED BLOOD COUNT 3.82 10^6/ul (4.20-5.40); RED CELL DISTRIBUTION WIDTH 16.6 % (11.5-14.5); WHITE BLOOD COUNT 8.9 10^3/ul (4.8-10.8)
[2016-04-29 06:28] LABS: POTASSIUM 3.4 mmol/L (3.5-5.1)
[2016-04-29 06:31] LABS: CREATININE 0.7 mg/dl (0.44-1.00)
[2016-04-29 06:32] LABS: CALCIUM 7.7 mg/dl (8.4-10.2); MAGNESIUM 1.8 mg/dl (1.7-2.5); PHOSPHORUS 2.5 mg/dl (2.5-4.9)
[2016-04-29] MEDS: METOCLOPRAMIDE 10 MG INJ IV SCH ×4 (06:51→23:46)
[2016-04-29] MEDS: PIPER-TAZO 3.375 GM IV (PMX) 100 ML IVPB SCH ×5 (06:53→23:46)
[2016-04-29] MEDS: metroNIDAZOLE 500 MG/NS (PMX) 100 ML IVPB SCH ×3 (07:37→21:49)
[2016-04-29 07:47] VITALS: BP 141/78; RESP 20
[2016-04-29] MEDS: HYDROmorphONE 0.2 MG/ML PCA IV SCH ×3 (08:15→23:46)
[2016-04-29] MEDS: METHYLNALTREXONE 12 MG/0.6 ML VIAL SC SCH (08:45)
[2016-04-29] MEDS: ACCU-CHEK XX SCH ×2 (08:50→21:48)
--- NOTE | 2016-04-29 10:26 | CONS ---
Date/Time of Note Date/Time of Note DATE: 04/29/16 TIME: 10:23 Assessment/Plan Assessment/Plan Chief Complaint/Hosp Course 61-year-old female with stage IIIB ovarian cancer s/p surgery by Dr. Johnston in May 2015 and 6 cycles of carbo/taxol with persistently elevated CA125, recently admitted to outside hospital with CT concerning for persistent disease. Pt is now s/p optimal CRS for recurrent disease on 04/08. She was left with < 5mm of residual disease. She now has increased drainage from the wound site and the wound is open. Latest CT done yesterday is consistent with bowel leak. Pt was taken again to OR on 04/24 where she underwent a small bowel resection and anastomosis as well as incisional hernia repair. Intraoperatively pt was noted to have progressive disease and a fistula. - post op care per Dr. Dave. post transfusion CBC reveals HG> 11. will defer transfusion requirement to Dr. Dave in this post operative setting -continue Sandostatin as the drainage appears to be less with this - continue Vancomycin and Zosyn - Agree with keeping NPO with TPN as patient has a known fistula. Pt is now having bowel movement and bowel leak appears to have resolved - LE Doppler do not reveal evidence of DVT - continue Zofran to 8mg IV q 6 prn nausea. nausea now under control - plan to start adjuvant chemotherapy in house when cleared by DATA PROCESSING AUDITOR onc. plan to give 1 dose of Gemcitabine/ Cisplatin. - appreciate pain management recs. Pt now on Fentanyl patch,and Dilaudid COMMISSARY PRODUCTION SUPERVISOR Approximately 40 min were spent at patient's bedside and in coordination of her care Problems: Consultation Date/Type/Reason Admit Date/Time Apr 02, 2016 at 10:07 Initial Consult Date 04/02/16 Type of Consultation: Hematology Reason for Consultation ovarian cancer Referring Provider: BRIAN ZAZUETA MD 24 HR Interval Summary Free Text/Dictation still with a lot of pain. requesting COMMISSARY PRODUCTION SUPERVISOR to be delivered with more frequency. feels drainage is less Exam/Review of Systems Vital Signs Vitals Vital Signs Date Time Temp Pulse Resp B/P Pulse Ox O2 Delivery O2 Flow Rate FiO2 04/29/16 10:00 16 04/29/16 09:18 2.0 04/29/16 09:00 Nasal Cannula 04/29/16 07:47 98.4 66 141/78 96 04/26/16 13:05 30 Intake and Output 04/28/16 04/28/16 04/29/16 15:00 23:00 07:00 Intake Total 600 ml 1164.8 ml 1353 ml Output Total 15 ml Balance 600 ml 1149.8 ml 1353 ml Exam Constitutional: distress, frail Psych: anxiety, depression Head: normocephalic Eyes: nl conjunctiva ENMT: nl external ears & nose Neck: non-tender, supple Respiratory: clear to auscultation Gastrointestinal: other (dressing in place. drainage is less) Musculoskeletal: nl extremities to inspection, nl gait and stance Results Result Diagram: 04/29/16 0515 04/29/16 0515 Results 24 hrs Laboratory Tests Test 04/28/16 11:10 04/28/16 21:55 04/28/16 22:38 04/29/16 05:15 Sodium Level 142 141 Potassium Level 3.0 L 3.4 L Chloride Level 104 106 Carbon Dioxide Level 29 28 Anion Gap 12 10 Blood Urea Nitrogen 20 20 Creatinine 0.73 0.70 Glucose Level 134 # 113 Calcium Level 7.9 L 7.7 L Phosphorus Level 2.9 2.5 Magnesium Level 1.9 1.8 Vancomycin Level Trough 11.3 Bedside Glucose 134 White Blood Count 8.9 Red Blood Count 3.82 #L Hemoglobin 11.2 #L Hematocrit 33.7 #L Mean Corpuscular Volume 88.2 Mean Corpuscular Hemoglobin 29.3 Mean Corpuscular Hemoglobin Concent 33.2 Red Cell Distribution Width 16.6 H Platelet Count 87 L Mean Platelet Volume 11.4 H Neutrophils % 81.6 H Lymphocytes % 9.3 L Monocytes % 5.9 Eosinophils % 1.9 Basophils % 0.2 Nucleated Red Blood Cells % 0.0 Neutrophils # 7.3 Lymphocytes # 0.8 Monocytes # 0.5 Eosinophils # 0.2 Basophils # 0.0 Nucleated Red Blood Cells # 0.0 Test 04/29/16 08:43 Bedside Glucose 141 Medications Medications Current Medications Zolpidem Tartrate (Ambien) 5 mg HS PRN PO INSOMNIA Last administered on 23:48; Admin Dose 5 MG; Start 04/01/16 at 22:00 Diphenhydramine HCl (Benadryl) 25 mg Q6H PRN PO ITCHING Last administered on 06:49; Admin Dose 25 MG; Start 04/02/16 at 07:00 Al Hydrox/Mg Hydrox/Simethicone (Mag-Al Plus) 30 ml Q6H PRN PO GASTROINTESTINAL UPSET Last administered on 04/06/16 19:40; Admin Dose 30 ML; Start 04/02/16 at 17:30 Clonidine HCl 1 patch 1 patch Q7D TRANSDERM Last administered on 04/25/16 13: 01; Admin Dose 1 PATCH; Start 04/04/16 at 13:15 Albumin Human (Alburx) 500 ml @ 250 mls/hr ONCE PRN IVPB U/O BELOW 30 ML/HR X 2 HR; Start 04/07/16 at 22:30 Pantoprazole (Protonix Iv) 40 mg DAILY@06 IV Last administered on 04/29/16 05: 35; Admin Dose 40 MG; Start 04/08/16 at 06:00 Hydralazine HCl 10 mg 10 mg Q4H PRN IV HTN Last administered on 04/25/16 00:51 ; Admin Dose 10 MG; Start 04/13/16 at 20:00 Ondansetron HCl/ Dextrose (Zofran Inj/D5W) 54 ml @ 108 mls/hr Q6H PRN IV NAUSEA AND/OR VOMITING Last administered on 04/29/16 05:13; Admin Dose 108 MLS/ HR; Start 04/15/16 at 12:30 Diagnostic Test (Pha) (Accucheck) 1 ea Q12 XX Last administered on 04/29/16 08 :50; Admin Dose 1 EA; Start 04/18/16 at 09:00 Lorazepam 1 mg 1 mg Q6H PRN IV ANXIETY Last administered on 04/28/16 09:41; Admin Dose 1 MG; Start 04/21/16 at 18:11 Metronidazole 100 ml @ 100 mls/hr Q8 IVPB Last administered on 04/29/16 07:37 ; Admin Dose 100 MLS/HR; Start 04/25/16 at 03:00 Piperacillin Sod/ Tazobactam Sod 100 ml @ 200 mls/hr Q6 IVPB Last administered on 04/29/16 06:53; Admin Dose 200 MLS/HR; Start 04/26/16 at 12:40 Vancomycin HCl/ Sodium Chloride (Vancocin/NS) 150 ml @ 75 mls/hr Q12H IVPB Last administered on 04/29/16 00:43; Admin Dose 75 MLS/HR; Start 04/27/16 at 11 :00 Octreotide Acetate (Sandostatin) 75 mcg TID SC Last administered on 04/29/16 08:44; Admin Dose 75 MCG; Start 04/27/16 at 13:00 Hydromorphone HCl (Dilaudid COMMISSARY PRODUCTION SUPERVISOR) 0.3 MG/HR CONTINUOUS R... Q4PCA IV Last administered on 04/29/16 08:15; Admin Dose 6 MG; Start 04/27/16 at 15:30 Methylnaltrexone [place] 12 mg 12 mg AM SC Last administered on 04/29/16 08:45 ; Admin Dose 12 MG; Start 04/27/16 at 16:30 Acetaminophen (Ofirmev 1000mg/ 100ml Iv) 100 ml @ 400 mls/hr Q6H IVPB Last administered on 04/29/16 10:07; Admin Dose 400 MLS/HR; Start 04/27/16 at 16:00 Fentanyl 1 patch 1 patch Q72H TRANSDERM Last administered on 04/27/16 17:38; Admin Dose 1 PATCH; Start 04/27/16 at 17:00 Fat Emulsion Intravenous 250 ml @ 10.417 mls/ hr Q24H IV Last administered on 04/28/16 17:17; Admin Dose 10.417 MLS/HR; Start 04/27/16 at 18:00 Total Parenteral Nutrition (Tpn) 1,000 ml @ 70 mls/hr [id number] IV Last administered on 04/28/16 23:41; Admin Dose 70 MLS/HR; Start 04/27/16 at 18:00 Mupirocin (Bactroban) 1 applic BID TOP Last administered on 04/27/16 21:10; Admin Dose 1 APPLIC; Start 04/27/16 at 21:00 Metoclopramide HCl (Reglan) 10 mg Q6 IV ; Start 04/29/16 at 12:00 DEMETRA COLUNGA M.D. Apr 29, 2016 10:26
[2016-04-29] MEDS: MUPIROCIN 2% 22 GM OINT TOP SCH ×2 (11:30→21:49)
[2016-04-29] MEDS ORDERED: OCTREOTIDE 100 MCG INJ SC SCH ×2 (13:00)
[2016-04-29] MEDS: TPN 1,000 ML IV SCH (14:27)
--- NOTE | 2016-04-29 16:21 | PN ---
Date/Time of Note Date/Time of Note DATE: 04/29/16 TIME: 16:20 Assessment/Plan VTE Prophylaxis VTE Prophylaxis Intervention: SCD's Lines/Catheters IV Catheter Type (from Nrs): Peripheral IV Urinary Cath still in place: Yes Reason Cath still needed: urinary retention Assessment/Plan Chief Complaint/Hosp Course ASSESSMENT AND PLAN: - Progressive recurrent ovarian carcinoma. Status post chemotherapy. Dr. Foy is following in hematology/oncology consultation. Dr. Johnston is following from a surgery standpoint. S/p bowel resection 04/07. Status post debulking surgery on 04/24. Continue follow-up per general surgery recommendations. Continue TPN and lipids. Patient is currently on octreotide. Continue broad-spectrum antibiotics. Continue wound care according to surgery recommendations. - Hypoxemic respiratory failure postoperatively, patient was weaned off ventilator extubated. Continue supplemental oxygen incentive spirometer. - Intractable abdominal pain. Dr. Green is following in pain management consultation. Continue Dilaudid ONLINE FACILITATOR and fentanyl patch. - Bilateral lower extremities edema, ultrasound is negative for DVT, continue Lasix, monitor electrolytes. -Hypokalemia, potassium replacement ordered. Continue Lovenox for deep venous thrombosis prophylaxis and Protonix for peptic ulcer disease prophylaxis. Further recommendations based on clinical course. Plan of care was discussed with Dr. Bravo. Problems: Exam/Review of Systems Vital Signs Vitals Vital Signs Date Time Temp Pulse Resp B/P Pulse Ox O2 Delivery O2 Flow Rate FiO2 04/29/16 14:08 16 04/29/16 09:18 2.0 04/29/16 09:00 Nasal Cannula 04/29/16 07:47 98.4 66 141/78 96 04/26/16 13:05 30 Intake and Output 04/28/16 04/28/16 04/29/16 15:00 23:00 07:00 Intake Total 600 ml 1164.8 ml 1353 ml Output Total 15 ml Balance 600 ml 1149.8 ml 1353 ml Exam PHYSICAL ASSESSMENT: GENERAL: Well-developed, well-nourished female currently is awake, alert. HEENT: Head is atraumatic, normocephalic. NGT to LWS. NECK: Supple, no cervical lymphadenopathy, no thyromegaly. CHEST: Lungs clear bilaterally. There is no rhonchi, wheezes, rales noted. CARDIOVASCULAR: Normal S1, S2. No murmurs, gallops, clicks, rubs noted. ABDOMEN: Round, soft, s/p surgery. SKIN: There is no rash, petechiae noted. EXTREMITIES: No edema, clubbing, cyanosis. Pulses equal bilaterally 2+. Mild edema. SKIN: There is no rash or petechiae noted. NEUROLOGICAL: The patient is awake, alert and oriented x4. Results Result Diagram: 04/29/16 0515 04/29/16 0515 Results 24 hrs Laboratory Tests Test 04/28/16 21:55 04/28/16 22:38 04/29/16 05:15 04/29/16 08:43 Vancomycin Level Trough 11.3 Bedside Glucose 134 141 White Blood Count 8.9 Red Blood Count 3.82 #L Hemoglobin 11.2 #L Hematocrit 33.7 #L Mean Corpuscular Volume 88.2 Mean Corpuscular Hemoglobin 29.3 Mean Corpuscular Hemoglobin Concent 33.2 Red Cell Distribution Width 16.6 H Platelet Count 87 L Mean Platelet Volume 11.4 H Neutrophils % 81.6 H Lymphocytes % 9.3 L Monocytes % 5.9 Eosinophils % 1.9 Basophils % 0.2 Nucleated Red Blood Cells % 0.0 Neutrophils # 7.3 Lymphocytes # 0.8 Monocytes # 0.5 Eosinophils # 0.2 Basophils # 0.0 Nucleated Red Blood Cells # 0.0 Sodium Level 141 Potassium Level 3.4 L Chloride Level 106 Carbon Dioxide Level 28 Anion Gap 10 Blood Urea Nitrogen 20 Creatinine 0.70 Glucose Level 113 Calcium Level 7.7 L Phosphorus Level 2.5 Magnesium Level 1.8 Medications Medications Current Medications Zolpidem Tartrate (Ambien) 5 mg HS PRN PO INSOMNIA Last administered on 23:48; Admin Dose 5 MG; Start 04/01/16 at 22:00 Diphenhydramine HCl (Benadryl) 25 mg Q6H PRN PO ITCHING Last administered on 06:49; Admin Dose 25 MG; Start 04/02/16 at 07:00 Al Hydrox/Mg Hydrox/Simethicone (Mag-Al Plus) 30 ml Q6H PRN PO GASTROINTESTINAL UPSET Last administered on 04/06/16 19:40; Admin Dose 30 ML; Start 04/02/16 at 17:30 Clonidine HCl 1 patch 1 patch Q7D TRANSDERM Last administered on 04/25/16 13: 01; Admin Dose 1 PATCH; Start 04/04/16 at 13:15 Albumin Human (Alburx) 500 ml @ 250 mls/hr ONCE PRN IVPB U/O BELOW 30 ML/HR X 2 HR; Start 04/07/16 at 22:30 Pantoprazole (Protonix Iv) 40 mg DAILY@06 IV Last administered on 04/29/16 05: 35; Admin Dose 40 MG; Start 04/08/16 at 06:00 Hydralazine HCl 10 mg 10 mg Q4H PRN IV HTN Last administered on 04/25/16 00:51 ; Admin Dose 10 MG; Start 04/13/16 at 20:00 Ondansetron HCl/ Dextrose (Zofran Inj/D5W) 54 ml @ 108 mls/hr Q6H PRN IV NAUSEA AND/OR VOMITING Last administered on 04/29/16 10:42; Admin Dose 108 MLS/ HR; Start 04/15/16 at 12:30 Diagnostic Test (Pha) (Accucheck) 1 ea Q12 XX Last administered on 04/29/16 08 :50; Admin Dose 1 EA; Start 04/18/16 at 09:00 Lorazepam 1 mg 1 mg Q6H PRN IV ANXIETY Last administered on 04/28/16 09:41; Admin Dose 1 MG; Start 04/21/16 at 18:11 Metronidazole 100 ml @ 100 mls/hr Q8 IVPB Last administered on 04/29/16 14:12 ; Admin Dose 100 MLS/HR; Start 04/25/16 at 03:00 Piperacillin Sod/ Tazobactam Sod 100 ml @ 200 mls/hr Q6 IVPB Last administered on 04/29/16 11:30; Admin Dose 200 MLS/HR; Start 04/26/16 at 12:40 Vancomycin HCl/ Sodium Chloride (Vancocin/NS) 150 ml @ 75 mls/hr Q12H IVPB Last administered on 04/29/16 12:09; Admin Dose 75 MLS/HR; Start 04/27/16 at 11 :00 Hydromorphone HCl (Dilaudid ONLINE FACILITATOR) 0.3 MG/HR CONTINUOUS R... Q4PCA IV Last administered on 04/29/16 08:15; Admin Dose 6 MG; Start 04/27/16 at 15:30 Methylnaltrexone [place] 12 mg 12 mg AM SC Last administered on 04/29/16 08:45 ; Admin Dose 12 MG; Start 04/27/16 at 16:30 Acetaminophen (Ofirmev 1000mg/ 100ml Iv) 100 ml @ 400 mls/hr Q6H IVPB Last administered on 04/29/16 15:47; Admin Dose 400 MLS/HR; Start 04/27/16 at 16:00 Fentanyl 1 patch 1 patch Q72H TRANSDERM Last administered on 04/27/16 17:38; Admin Dose 1 PATCH; Start 04/27/16 at 17:00 Fat Emulsion Intravenous 250 ml @ 10.417 mls/ hr Q24H IV Last administered on 04/28/16 17:17; Admin Dose 10.417 MLS/HR; Start 04/27/16 at 18:00 Total Parenteral Nutrition (Tpn) 1,000 ml @ 70 mls/hr [id number] IV Last administered on 04/29/16 14:27; Admin Dose 70 MLS/HR; Start 04/27/16 at 18:00 Mupirocin (Bactroban) 1 applic BID TOP Last administered on 04/29/16 11:30; Admin Dose 1 APPLIC; Start 04/27/16 at 21:00 Metoclopramide HCl (Reglan) 10 mg Q6 IV Last administered on 04/29/16 11:31; Admin Dose 10 MG; Start 04/29/16 at 12:00 Octreotide Acetate (Sandostatin) 100 mcg TID SC ; Start 04/29/16 at 13:00 LARRY MEJIA Apr 29, 2016 16:21
[2016-04-29] MEDS ORDERED: HYDROmorphONE 1 MG/ML SYG IV STA (16:26)
[2016-04-29] MEDS: FAT EMULSION 20% 250 ML IV SCH (16:34)
[2016-04-29] MEDS ORDERED: VITAMIN A & D 5 GM OINT PACKET TOP ONE (19:47)
[2016-04-29 20:06] VITALS: BP 127/76; RESP 20
[2016-04-30] MEDS: VANCOMYCIN 750 MG in SOD CHLORIDE 0.9% 150 ML IVPB SCH ×2 (00:40→10:24)
[2016-04-30] MEDS: ACETAMINOPHEN 1000MG/100ML IV 100 ML IVPB SCH ×4 (04:30→21:12)
[2016-04-30] MEDS: TPN 1,000 ML IV SCH ×2 (04:38→17:53)
[2016-04-30] MEDS: METOCLOPRAMIDE 10 MG INJ IV SCH ×4 (05:17→23:39)
[2016-04-30] MEDS: PANTOPRAZOLE 40 MG INJ IV SCH (05:17)
[2016-04-30] MEDS: FUROSEMIDE 20 MG INJ IV SCH ×2 (05:17→17:53)
[2016-04-30] MEDS: metroNIDAZOLE 500 MG/NS (PMX) 100 ML IVPB SCH ×3 (05:19→22:16)
[2016-04-30] MEDS: PIPER-TAZO 3.375 GM IV (PMX) 100 ML IVPB SCH ×2 (06:31→13:09)
[2016-04-30 08:06] VITALS: BP 143/84; RESP 20
--- NOTE | 2016-04-30 08:37 | PN ---
Date/Time of Note Date/Time of Note DATE: 04/30/16 TIME: 08:32 Assessment/Plan VTE Prophylaxis VTE Prophylaxis Intervention: SCD's Lines/Catheters IV Catheter Type (from Nrs): Peripheral IV Urinary Cath still in place: Yes Assessment/Plan Chief Complaint/Hosp Course Ovarian cancer with recurrence would benefit from secondary CRS even though persistent disease because the problem is her chemo was delayed 3 months postop. Informed of need to start chemo nathan postop and will call [facility] Problems: Assessment/Plan A- doing reasonably well but suggestion of minimal ongoing small fistula P- Keep in NGT and NPO on TPN and increase Sandostatin further started due to risk of fistula. Will check labs and after advancing Sandostatin a.m. possibly d/c NGT Subjective 24 Hr Interval Summary Free Text/Dictation S- Less pain but not OOB O- Resp- clear CVS- NSR Abd- appropriate tenderness and incision not adequately packed suggestion of minimal enteric leakage thru distal incision but not drain which is clear Ext- NT less edema A- doing reasonably well but suggestion of minimal ongoing small fistula P- Keep in NGT and NPO on TPN and increase Sandostatin further started due to risk of fistula. Will check labs and after advancing Sandostatin a.m. possibly d/c NGT Exam/Review of Systems Vital Signs Vitals Vital Signs Date Time Temp Pulse Resp B/P Pulse Ox O2 Delivery O2 Flow Rate FiO2 04/30/16 08:06 98.6 88 20 143/84 95 04/29/16 21:30 Nasal Cannula 2.0 04/26/16 13:05 30 Intake and Output 04/29/16 04/29/16 04/30/16 15:00 23:00 07:00 Intake Total 604 ml 2144 ml 1284.17 ml Output Total 900 ml 1810 ml 1060 ml Balance -296 ml 334 ml 224.17 ml Results Result Diagram: 04/29/16 0515 04/29/16 0515 Results 24 hrs Laboratory Tests Test 04/29/16 08:43 04/29/16 21:47 Bedside Glucose 141 131 Medications Medications Current Medications Zolpidem Tartrate (Ambien) 5 mg HS PRN PO INSOMNIA Last administered on t 23:48; Admin Dose 5 MG; Start 04/01/16 at 22:00 Diphenhydramine HCl (Benadryl) 25 mg Q6H PRN PO ITCHING Last administered on 06:49; Admin Dose 25 MG; Start 04/02/16 at 07:00 Al Hydrox/Mg Hydrox/Simethicone (Mag-Al Plus) 30 ml Q6H PRN PO GASTROINTESTINAL UPSET Last administered on 04/06/16 19:40; Admin Dose 30 ML; Start 04/02/16 at 17:30 Clonidine HCl 1 patch 1 patch Q7D TRANSDERM Last administered on 04/25/16 13: 01; Admin Dose 1 PATCH; Start 04/04/16 at 13:15 Albumin Human (Alburx) 500 ml @ 250 mls/hr ONCE PRN IVPB U/O BELOW 30 ML/HR X 2 HR; Start 04/07/16 at 22:30 Pantoprazole (Protonix Iv) 40 mg DAILY@06 IV Last administered on 04/30/16 05: 17; Admin Dose 40 MG; Start 04/08/16 at 06:00 Hydralazine HCl 10 mg 10 mg Q4H PRN IV HTN Last administered on 04/25/16 00:51 ; Admin Dose 10 MG; Start 04/13/16 at 20:00 Ondansetron HCl/ Dextrose (Zofran Inj/D5W) 54 ml @ 108 mls/hr Q6H PRN IV NAUSEA AND/OR VOMITING Last administered on 04/29/16 10:42; Admin Dose 108 MLS/ HR; Start 04/15/16 at 12:30 Diagnostic Test (Pha) (Accucheck) 1 ea Q12 XX Last administered on 04/29/16 21 :48; Admin Dose 1 EA; Start 04/18/16 at 09:00 Lorazepam 1 mg 1 mg Q6H PRN IV ANXIETY Last administered on 04/28/16 09:41; Admin Dose 1 MG; Start 04/21/16 at 18:11 Metronidazole 100 ml @ 100 mls/hr Q8 IVPB Last administered on 04/30/16 05:19 ; Admin Dose 100 MLS/HR; Start 04/25/16 at 03:00 Piperacillin Sod/ Tazobactam Sod 100 ml @ 200 mls/hr Q6 IVPB Last administered on 04/30/16 06:31; Admin Dose 200 MLS/HR; Start 04/26/16 at 12:40 Vancomycin HCl/ Sodium Chloride (Vancocin/NS) 150 ml @ 75 mls/hr Q12H IVPB Last administered on 04/30/16 00:40; Admin Dose 75 MLS/HR; Start 04/27/16 at 11 :00 Hydromorphone HCl (Dilaudid BRIDGE IRONWORKER) 0.5MG DOSE 20... Q4PCA IV Last administered on 04/29/16 23:46; Admin Dose 6 MG; Start 04/27/16 at 15:30 Methylnaltrexone [place] 12 mg 12 mg AM SC Last administered on 04/29/16 08:45 ; Admin Dose 12 MG; Start 04/27/16 at 16:30 Acetaminophen (Ofirmev 1000mg/ 100ml Iv) 100 ml @ 400 mls/hr Q6H IVPB Last administered on 04/30/16 04:30; Admin Dose 400 MLS/HR; Start 04/27/16 at 16:00 Fentanyl 1 patch 1 patch Q72H TRANSDERM Last administered on 04/27/16 17:38; Admin Dose 1 PATCH; Start 04/27/16 at 17:00 Fat Emulsion Intravenous 250 ml @ 10.417 mls/ hr Q24H IV Last administered on 04/29/16 16:34; Admin Dose 10.417 MLS/HR; Start 04/27/16 at 18:00 Total Parenteral Nutrition (Tpn) 1,000 ml @ 70 mls/hr [id number] IV Last administered on 04/30/16 04:38; Admin Dose 70 MLS/HR; Start 04/27/16 at 18:00 Mupirocin (Bactroban) 1 applic BID TOP Last administered on 04/29/16 21:49; Admin Dose 1 APPLIC; Start 04/27/16 at 21:00 Metoclopramide HCl (Reglan) 10 mg Q6 IV Last administered on 04/30/16 05:17; Admin Dose 10 MG; Start 04/29/16 at 12:00 Octreotide Acetate (Sandostatin) 100 mcg TID SC Last administered on 04/29/16 21:49; Admin Dose 100 MCG; Start 04/29/16 at 13:00 ANDI WADDELL MD Apr 30, 2016 08:37
[2016-04-30] MEDS: ACCU-CHEK XX SCH ×2 (09:00→21:19)
[2016-04-30] MEDS ORDERED: HYDROmorphONE 0.2 MG/ML PCA IV STA (09:05)
[2016-04-30] MEDS ORDERED: HYDROmorphONE 1 MG/ML SYG IV STA ×2 (09:08→11:39)
[2016-04-30] MEDS: HYDROmorphONE 0.2 MG/ML PCA IV SCH ×2 (09:15→19:46)
[2016-04-30] MEDS: METHYLNALTREXONE 12 MG/0.6 ML VIAL SC SCH (09:19)
[2016-04-30] MEDS: MUPIROCIN 2% 22 GM OINT TOP SCH ×2 (10:23→21:13)
[2016-04-30] MEDS: OCTREOTIDE 50 MCG INJ SC SCH ×3 (10:23→22:56)
[2016-04-30 11:28] LABS: ADD SCAN DIFF NO
[2016-04-30 11:34] LABS: ABNORMAL IP MESSAGE 1; HEMATOCRIT 34.8 % (37.0-47.0); HEMOGLOBIN 11.4 g/dl (12.0-16.0); MEAN CORPUSCULAR HEMOGLOBIN 29.2 pg (29.0-33.0); MEAN CORPUSCULAR HGB CONC 32.8 g/dl (32.0-37.0); MEAN CORPUSCULAR VOLUME 89.2 fl (82.0-101.0); MEAN PLATELET VOLUME 10.8 fl (7.4-10.4); PLATELET COUNT 84 10^3/UL (140-415); RED CELL DISTRIBUTION WIDTH 16.5 % (11.5-14.5); WHITE BLOOD COUNT 7.5 10^3/ul (4.8-10.8)
[2016-04-30 11:44] LABS: INR 1.18; PROTIME 15.1 Sec (12.2-14.2); PT RATIO 1.2
[2016-04-30] MEDS: DIPHENHYDRAMINE 50 MG INJ IV PRN (12:16)
[2016-04-30 12:22] LABS: CREATININE 0.66 mg/dl (0.44-1.00)
[2016-04-30 12:23] LABS: CALCIUM 7.6 mg/dl (8.4-10.2)
[2016-04-30 12:32] VITALS: BP 132/82; RESP 18
[2016-04-30 13:00] LABS: BURR CELLS FEW
[2016-04-30 13:01] LABS: HYPOCHROMASIA 1+
[2016-04-30 13:02] LABS: EOSINOPHILS # 0.2 10^3/ul (0.0-0.5); LYMPHOCYTES # 0.4 10^3/ul (0.8-2.9); MYELOCYTES # 0.1; NEUTROPHIL # 5.1 10^3/ul (1.6-7.5); POTASSIUM 3.8 mmol/L (3.5-5.1)
[2016-04-30 13:03] LABS: PLATELET ESTIMATE PLT APPEAR DECREASED
--- NOTE | 2016-04-30 14:52 | CONS ---
Date/Time of Note Date/Time of Note DATE: 04/30/16 TIME: 14:49 Assessment/Plan Assessment/Plan Chief Complaint/Hosp Course 61-year-old female with stage IIIB ovarian cancer s/p surgery by Dr. Johnston in May 2015 and 6 cycles of carbo/taxol with persistently elevated CA125, recently admitted to outside hospital with CT concerning for persistent disease. Pt is now s/p optimal CRS for recurrent disease on 04/08. She was left with < 5mm of residual disease. She now has increased drainage from the wound site and the wound is open. Latest CT done yesterday is consistent with bowel leak. Pt was taken again to OR on 04/24 where she underwent a small bowel resection and anastomosis as well as incisional hernia repair. Intraoperatively pt was noted to have progressive disease and a fistula. - post op care per Dr. Dave. post transfusion CBC reveals HG> 11. Will defer transfusion requirement to Dr. Dave in this post operative setting - Continue Sandostatin as the drainage appears to be less with this - continue Vancomycin and Zosyn. Per Dr. Johnston, continue vancomycin. - Agree with keeping NPO with TPN as patient has a known fistula. Pt is now having bowel movement and bowel leak appears to have resolved - LE Doppler do not reveal evidence of DVT - continue Zofran to 8mg IV q 6 prn nausea. nausea now under control - plan to start adjuvant chemotherapy in house when cleared by [facility]. plan to give 1 dose of Gemcitabine/ Cisplatin. - appreciate pain management recs. Pt now on Fentanyl patch,and Dilaudid DISTRIBUTION MANAGER Problems: Consultation Date/Type/Reason Admit Date/Time Apr 02, 2016 at 10:07 Initial Consult Date 04/02/16 Type of Consultation: Hematology Referring Provider: BRIAN ZAZUETA MD 24 HR Interval Summary Free Text/Dictation Patient states that she has nausea but decreased pain. She did have a rash on her chest after vancomycin today. Exam/Review of Systems Vital Signs Vitals Vital Signs Date Time Temp Pulse Resp B/P Pulse Ox O2 Delivery O2 Flow Rate FiO2 04/30/16 12:32 98.3 78 18 132/82 98 04/29/16 21:30 Nasal Cannula 2.0 04/26/16 13:05 30 Intake and Output 04/29/16 04/29/16 04/30/16 15:00 23:00 07:00 Intake Total 604 ml 2144 ml 1284.17 ml Output Total 900 ml 1810 ml 1060 ml Balance -296 ml 334 ml 224.17 ml Exam Constitutional: distress, frail Psych: anxiety, depression Head: normocephalic Eyes: nl conjunctiva ENMT: nl external ears & nose Neck: non-tender, supple Respiratory: clear to auscultation Gastrointestinal: other (dressing in place. drainage is less) Musculoskeletal: nl extremities to inspection, nl gait and stance Results Result Diagram: 04/30/16 1114 04/30/16 1114 Results 24 hrs Laboratory Tests Test 04/29/16 21:47 04/30/16 10:02 04/30/16 11:14 Bedside Glucose 131 130 White Blood Count 7.5 Red Blood Count 3.90 L Hemoglobin 11.4 L Hematocrit 34.8 L Mean Corpuscular Volume 89.2 Mean Corpuscular Hemoglobin 29.2 Mean Corpuscular Hemoglobin Concent 32.8 Red Cell Distribution Width 16.5 H Platelet Count 84 L Mean Platelet Volume 10.8 H Neutrophils % 68.0 Band Neutrophils % 22.0 H Lymphocytes % 5.0 L Monocytes % Eosinophils % 2.0 Metamyelocytes % 2.0 H Myelocytes % 1.0 H Neutrophils # 5.1 Lymphocytes # 0.4 L Monocytes # Eosinophils # 0.2 Metamyelocytes # 0.2 Myelocytes # 0.1 Differential Comment MANUAL DIFF Platelet Estimate PLT APPEAR DECREASED Hypochromasia 1+ Macrocytosis 1+ Prothrombin Time 15.1 H Prothrombin Time Ratio 1.2 INR International Normalized Ratio 1.18 Sodium Level 135 Potassium Level 3.8 Chloride Level 102 Carbon Dioxide Level 25 Anion Gap 12 Blood Urea Nitrogen 21 H Creatinine 0.66 Glucose Level 142 Calcium Level 7.6 L Medications Medications Current Medications Zolpidem Tartrate (Ambien) 5 mg HS PRN PO INSOMNIA Last administered on 23:48; Admin Dose 5 MG; Start 04/01/16 at 22:00 Diphenhydramine HCl (Benadryl) 25 mg Q6H PRN PO ITCHING Last administered on 06:49; Admin Dose 25 MG; Start 04/02/16 at 07:00 Al Hydrox/Mg Hydrox/Simethicone (Mag-Al Plus) 30 ml Q6H PRN PO GASTROINTESTINAL UPSET Last administered on 04/06/16 19:40; Admin Dose 30 ML; Start 04/02/16 at 17:30 Clonidine HCl 1 patch 1 patch Q7D TRANSDERM Last administered on 04/25/16 13: 01; Admin Dose 1 PATCH; Start 04/04/16 at 13:15 Albumin Human (Alburx) 500 ml @ 250 mls/hr ONCE PRN IVPB U/O BELOW 30 ML/HR X 2 HR; Start 04/07/16 at 22:30 Pantoprazole (Protonix Iv) 40 mg DAILY@06 IV Last administered on 04/30/16 05: 17; Admin Dose 40 MG; Start 04/08/16 at 06:00 Hydralazine HCl 10 mg 10 mg Q4H PRN IV HTN Last administered on 04/25/16 00:51 ; Admin Dose 10 MG; Start 04/13/16 at 20:00 Ondansetron HCl/ Dextrose (Zofran Inj/D5W) 54 ml @ 108 mls/hr Q6H PRN IV NAUSEA AND/OR VOMITING Last administered on 04/29/16 10:42; Admin Dose 108 MLS/ HR; Start 04/15/16 at 12:30 Diagnostic Test (Pha) (Accucheck) 1 ea Q12 XX Last administered on 04/30/16 09 :00; Admin Dose 1 EA; Start 04/18/16 at 09:00 Lorazepam 1 mg 1 mg Q6H PRN IV ANXIETY Last administered on 04/28/16 09:41; Admin Dose 1 MG; Start 04/21/16 at 18:11 Metronidazole 100 ml @ 100 mls/hr Q8 IVPB Last administered on 04/30/16 05:19 ; Admin Dose 100 MLS/HR; Start 04/25/16 at 03:00 Piperacillin Sod/ Tazobactam Sod (Zosyn 3.375gm/ 100 ml (Pmx)) 100 ml @ 200 mls /hr Q6 IVPB Last administered on 04/30/16 13:09; Admin Dose 200 MLS/HR; Start 04/26/16 at 12:40 Hydromorphone HCl (Dilaudid DISTRIBUTION MANAGER) 0.5MG DOSE 20... Q4PCA IV Last administered on 04/30/16 09:15; Admin Dose 6 MG; Start 04/27/16 at 15:30 Methylnaltrexone [place] 12 mg 12 mg AM SC Last administered on 04/30/16 09:19 ; Admin Dose 12 MG; Start 04/27/16 at 16:30 Acetaminophen (Ofirmev 1000mg/ 100ml Iv) 100 ml @ 400 mls/hr Q6H IVPB Last administered on 04/30/16 10:00; Admin Dose 400 MLS/HR; Start 04/27/16 at 16:00 Fentanyl 1 patch 1 patch Q72H TRANSDERM Last administered on 04/27/16 17:38; Admin Dose 1 PATCH; Start 04/27/16 at 17:00 Fat Emulsion Intravenous 250 ml @ 10.417 mls/ hr Q24H IV Last administered on 04/29/16 16:34; Admin Dose 10.417 MLS/HR; Start 04/27/16 at 18:00 Total Parenteral Nutrition (Tpn) 1,000 ml @ 70 mls/hr [id number] IV Last administered on 04/30/16 04:38; Admin Dose 70 MLS/HR; Start 04/27/16 at 18:00 Mupirocin (Bactroban) 1 applic BID TOP Last administered on 04/30/16 10:23; Admin Dose 1 APPLIC; Start 04/27/16 at 21:00 Metoclopramide HCl (Reglan) 10 mg Q6 IV Last administered on 04/30/16 12:13; Admin Dose 10 MG; Start 04/29/16 at 12:00 Octreotide Acetate (Sandostatin) 100 mcg TID SC Last administered on 04/30/16 10:23; Admin Dose 50 MCG; Start 04/29/16 at 13:00 Hydromorphone HCl (Dilaudid) 0.5 mg Q2 PRN IV SEVERE PAIN LEVEL 7-10; Start at 12:00 Diphenhydramine HCl (Benadryl) 25 mg Q6H PRN IV ALLERGIC REACTION Last administered on 04/30/16 12:16; Admin Dose 25 MG; Start 04/30/16 at 12:10 SEE BOYCE MD Apr 30, 2016 14:52
[2016-04-30] MEDS: HYDROmorphONE 1 MG/ML SYG IV PRN ×2 (15:27→21:21)
--- NOTE | 2016-04-30 16:36 | QN ---
Documentation Comment ID consult requested for antibiotic management in a pt with persistent and metastatic ovarian CA s/p debulking surgery. Dr. Lazar to see pt soon. Thank you. NANCY RAMÍREZ NP Apr 30, 2016 16:36
[2016-04-30] MEDS: FAT EMULSION 20% 250 ML IV SCH (17:53)
[2016-04-30 19:00] VITALS: BP 124/90; RESP 18
[2016-04-30] MEDS: FENTAnyl PATCH 12 MCG/HR TRANSDERM SCH (19:31)
--- NOTE | 2016-04-30 19:49 | PN ---
Date/Time of Note Date/Time of Note DATE: 04/30/16 TIME: 19:45 Assessment/Plan VTE Prophylaxis VTE Prophylaxis Intervention: LMWH Lines/Catheters IV C[facility]ter Type (from [facility] Peripheral IV Urinary Cath still in place: Yes Assessment/Plan Assessment/Plan - Progressive recurrent ovarian carcinoma. Status post chemotherapy. Dr. Foy is following in hematology/oncology consultation. Dr. Johnston is following from a surgery standpoint. S/p bowel resection 04/07. Status post debulking surgery on 04/24. Continue follow-up per general surgery recommendations. Continue TPN and lipids. Patient is currently on octreotide. Continue broad-spectrum antibiotics. Continue wound care according to surgery recommendations. - Hypoxemic respiratory failure postoperatively, patient was weaned off ventilator extubated. Continue supplemental oxygen incentive spirometer. - Intractable abdominal pain. Dr. Green is following in pain management consultation. Continue Dilaudid ROLLER TURNER and fentanyl patch. - Bilateral lower extremities edema, ultrasound is negative for DVT, continue Lasix, monitor electrolytes. -Hypokalemia, potassium replacement ordered. - Skin rash - possibly reaction to Vancomycin, Benadryl was given, improved, ID consult done Continue Lovenox for deep venous thrombosis prophylaxis and Protonix for peptic ulcer disease prophylaxis. Further recommendations based on clinical course. Plan of care was discussed with Dr. Bravo. Exam/Review of Systems Vital Signs Vitals Vital Signs Date Time Temp Pulse Resp B/P Pulse Ox O2 Delivery O2 Flow Rate FiO2 04/30/16 19:00 98.5 78 18 124/90 96 04/29/16 21:30 Nasal Cannula 2.0 04/26/16 13:05 30 Intake and Output 04/29/16 04/29/16 04/30/16 15:00 23:00 07:00 Intake Total 604 ml 2144 ml 1284.17 ml Output Total 900 ml 1810 ml 1060 ml Balance -296 ml 334 ml 224.17 ml Exam Constitutional: alert Head: atraumatic Eyes: PERRL, nl sclera ENMT: nl external ears & nose Neck: non-tender Respiratory: diminished breath sounds Cardiovascular: nl pulses Gastrointestinal: soft, tender Musculoskeletal: nl extremities to inspection Neurological: nl mental status, nl speech Skin: other Results Result Diagram: 04/30/16 1114 04/30/16 1114 Results 24 hrs Laboratory Tests Test 04/29/16 21:47 04/30/16 10:02 04/30/16 11:14 Bedside Glucose 131 130 White Blood Count 7.5 Red Blood Count 3.90 L Hemoglobin 11.4 L Hematocrit 34.8 L Mean Corpuscular Volume 89.2 Mean Corpuscular Hemoglobin 29.2 Mean Corpuscular Hemoglobin Concent 32.8 Red Cell Distribution Width 16.5 H Platelet Count 84 L Mean Platelet Volume 10.8 H Neutrophils % 68.0 Band Neutrophils % 22.0 H Lymphocytes % 5.0 L Monocytes % Eosinophils % 2.0 Metamyelocytes % 2.0 H Myelocytes % 1.0 H Neutrophils # 5.1 Lymphocytes # 0.4 L Monocytes # Eosinophils # 0.2 Metamyelocytes # 0.2 Myelocytes # 0.1 Differential Comment MANUAL DIFF Platelet Estimate PLT APPEAR DECREASED Hypochromasia 1+ Macrocytosis 1+ Prothrombin Time 15.1 H Prothrombin Time Ratio 1.2 INR International Normalized Ratio 1.18 Sodium Level 135 Potassium Level 3.8 Chloride Level 102 Carbon Dioxide Level 25 Anion Gap 12 Blood Urea Nitrogen 21 H Creatinine 0.66 Glucose Level 142 Calcium Level 7.6 L Medications Medications Current Medications Zolpidem Tartrate (Ambien) 5 mg HS PRN PO INSOMNIA Last administered on 23:48; Admin Dose 5 MG; Start 04/01/16 at 22:00 Diphenhydramine HCl (Benadryl) 25 mg Q6H PRN PO ITCHING Last administered on 06:49; Admin Dose 25 MG; Start 04/02/16 at 07:00 Al Hydrox/Mg Hydrox/Simethicone (Mag-Al Plus) 30 ml Q6H PRN PO GASTROINTESTINAL UPSET Last administered on 04/06/16 19:40; Admin Dose 30 ML; Start 04/02/16 at 17:30 Clonidine HCl 1 patch 1 patch Q7D TRANSDERM Last administered on 04/25/16 13: 01; Admin Dose 1 PATCH; Start 04/04/16 at 13:15 Albumin Human (Alburx) 500 ml @ 250 mls/hr ONCE PRN IVPB U/O BELOW 30 ML/HR X 2 HR; Start 04/07/16 at 22:30 Pantoprazole (Protonix Iv) 40 mg DAILY@06 IV Last administered on 04/30/16 05: 17; Admin Dose 40 MG; Start 04/08/16 at 06:00 Hydralazine HCl 10 mg 10 mg Q4H PRN IV HTN Last administered on 04/25/16 00:51 ; Admin Dose 10 MG; Start 04/13/16 at 20:00 Ondansetron HCl/ Dextrose (Zofran Inj/D5W) 54 ml @ 108 mls/hr Q6H PRN IV NAUSEA AND/OR VOMITING Last administered on 04/29/16 10:42; Admin Dose 108 MLS/ HR; Start 04/15/16 at 12:30 Diagnostic Test (Pha) (Accucheck) 1 ea Q12 XX Last administered on 04/30/16 09 :00; Admin Dose 1 EA; Start 04/18/16 at 09:00 Lorazepam 1 mg 1 mg Q6H PRN IV ANXIETY Last administered on 04/28/16 09:41; Admin Dose 1 MG; Start 04/21/16 at 18:11 Metronidazole (Flagyl 500 Mg (Pmx)) 100 ml @ 100 mls/hr Q8 IVPB Last administered on 04/30/16 14:52; Admin Dose 100 MLS/HR; Start 04/25/16 at 03:00 Hydromorphone HCl (Dilaudid ROLLER TURNER) 0.5MG DOSE 20... Q4PCA IV Last administered on 04/30/16 09:15; Admin Dose 6 MG; Start 04/27/16 at 15:30 Methylnaltrexone [place] 12 mg 12 mg AM SC Last administered on 04/30/16 09:19 ; Admin Dose 12 MG; Start 04/27/16 at 16:30 Acetaminophen (Ofirmev 1000mg/ 100ml Iv) 100 ml @ 400 mls/hr Q6H IVPB Last administered on 04/30/16 17:51; Admin Dose 400 MLS/HR; Start 04/27/16 at 16:00 Fentanyl 1 patch 1 patch Q72H TRANSDERM Last administered on 04/30/16 19:31; Admin Dose 1 PATCH; Start 04/27/16 at 17:00 Fat Emulsion Intravenous 250 ml @ 10.417 mls/ hr Q24H IV Last administered on 04/30/16 17:53; Admin Dose 10.417 MLS/HR; Start 04/27/16 at 18:00 Total Parenteral Nutrition (Tpn) 1,000 ml @ 70 mls/hr [id number] IV Last administered on 04/30/16 17:53; Admin Dose 70 MLS/HR; Start 04/27/16 at 18:00 Mupirocin (Bactroban) 1 applic BID TOP Last administered on 04/30/16 10:23; Admin Dose 1 APPLIC; Start 04/27/16 at 21:00 Metoclopramide HCl (Reglan) 10 mg Q6 IV Last administered on 04/30/16 17:52; Admin Dose 10 MG; Start 04/29/16 at 12:00 Octreotide Acetate (Sandostatin) 100 mcg TID SC Last administered on 04/30/16 15:27; Admin Dose 100 MCG; Start 04/29/16 at 13:00 Hydromorphone HCl (Dilaudid) 0.5 mg Q2 PRN IV SEVERE PAIN LEVEL 7-10 Last administered on 04/30/16 15:27; Admin Dose 0.5 MG; Start 04/30/16 at 12:00 Diphenhydramine HCl 25 mg 25 mg Q6H PRN IV ALLERGIC REACTION Last administered on 04/30/16 12:16; Admin Dose 25 MG; Start 04/30/16 at 12:10 Imipenem/ Cilastatin Sodium 100 ml @ 100 mls/hr Q8 IVPB ; Start 04/30/16 at 22: 00 Ciprofloxacin/ Dextrose (Cipro Ivpb) 200 ml @ 200 mls/hr Q12 IVPB ; Start 04/30 at 21:00 BLAKE BRUMFIELD Apr 30, 2016 19:49
[2016-04-30] MEDS: CIPROFLOXACIN 400MG/D5W 200 ML IVPB SCH (20:10)
--- NOTE | 2016-04-30 23:14 | QN ---
Documentation Comment given report by nurses of possible alergic reaction to Vanco and given upcoming Cisplatin anticipated, Abx changed based on sensitivities of organisms on C&S. ANDI WADDELL MD Apr 30, 2016 23:14
[2016-04-30] MEDS: IMIPENEM-CILAST 500MG IV (PMX) 100 ML IVPB SCH (23:39)
[2016-04-30 23:47] VITALS: BP 134/81; PULSE 80
[2016-05-01] MEDS: ACETAMINOPHEN 1000MG/100ML IV 100 ML IVPB SCH ×4 (03:54→21:46)
[2016-05-01 04:56] LABS: ADD SCAN DIFF NO
[2016-05-01 05:11] LABS: POTASSIUM 3.8 mmol/L (3.5-5.1)
[2016-05-01 05:13] LABS: CREATININE 0.66 mg/dl (0.44-1.00)
[2016-05-01 05:14] LABS: CALCIUM 7.5 mg/dl (8.4-10.2)
[2016-05-01 05:20] LABS: ABNORMAL IP MESSAGE 1; BASOPHILS % 0.2 % (0.0-2.0); EOSINOPHILS # 0.1 10^3/ul (0.0-0.5); EOSINOPHILS % 2.3 % (0.0-7.0); HEMOGLOBIN 11.3 g/dl (12.0-16.0); LYMPHOCYTES # 0.7 10^3/ul (0.8-2.9); LYMPHOCYTES % 10.6 % (15.0-51.0); MEAN CORPUSCULAR HEMOGLOBIN 29.8 pg (29.0-33.0); MEAN CORPUSCULAR HGB CONC 33.2 g/dl (32.0-37.0); MEAN CORPUSCULAR VOLUME 89.7 fl (82.0-101.0); MEAN PLATELET VOLUME 12.1 fl (7.4-10.4); MONOCYTE # 0.4 10^3/ul (0.3-0.9); MONOCYTES % 5.8 % (0.0-11.0); NEUTROPHILS % 80.3 % (39.0-77.0); RED BLOOD COUNT 3.79 10^6/ul (4.20-5.40); RED CELL DISTRIBUTION WIDTH 16.7 % (11.5-14.5); WHITE BLOOD COUNT 6.2 10^3/ul (4.8-10.8)
[2016-05-01 05:25] LABS: PLATELET COUNT 81 10^3/UL (140-415)
[2016-05-01] MEDS: metroNIDAZOLE 500 MG/NS (PMX) 100 ML IVPB SCH ×3 (05:39→23:37)
[2016-05-01] MEDS: PANTOPRAZOLE 40 MG INJ IV SCH (05:39)
[2016-05-01] MEDS: METOCLOPRAMIDE 10 MG INJ IV SCH ×4 (05:39→23:50)
[2016-05-01] MEDS: HYDROmorphONE 1 MG/ML SYG IV PRN ×4 (05:49→23:50)
[2016-05-01 06:10] VITALS: BP 142/79; PULSE 78
[2016-05-01] MEDS: FUROSEMIDE 20 MG INJ IV SCH ×2 (06:14→17:34)
[2016-05-01] MEDS: IMIPENEM-CILAST 500MG IV (PMX) 100 ML IVPB SCH ×3 (07:05→22:33)
[2016-05-01] MEDS: HYDROmorphONE 0.2 MG/ML PCA IV SCH ×3 (07:12→22:40)
[2016-05-01] MEDS: TPN 1,000 ML IV SCH ×2 (08:15→23:53)
[2016-05-01 08:32] VITALS: BP 114/75; RESP 18
[2016-05-01] MEDS: CIPROFLOXACIN 400MG/D5W 200 ML IVPB SCH ×2 (09:17→20:35)
[2016-05-01] MEDS: OCTREOTIDE 50 MCG INJ SC SCH ×3 (09:20→20:39)
[2016-05-01] MEDS: ACCU-CHEK XX SCH ×2 (09:22→21:00)
[2016-05-01] MEDS: MUPIROCIN 2% 22 GM OINT TOP SCH ×2 (09:23→20:50)
[2016-05-01 12:00] VITALS: BP 114/68; PULSE 74; RESP 18
--- NOTE | 2016-05-01 12:15 | CONS ---
Date/Time of Note Date/Time of Note DATE: 05/01/16 TIME: 12:13 Consult Date/Type/Reason Admit Date/Time Apr 02, 2016 at 10:07 Initial Consult Date 04/02/16 Type of Consultation: pulmonary Ordering Provider: BRIAN ZAZUETA MD Subjective Patient appears comfortable this morning no change in overall status currently having wound care. Objective Vital Signs Date Time Temp Pulse Resp B/P Pulse Ox O2 Delivery O2 Flow Rate FiO2 05/01/16 08:32 98.7 85 18 114/75 96 05/01/16 06:10 Nasal Cannula 2.0 Intake and Output 04/30/16 04/30/16 05/01/16 15:00 23:00 07:00 Intake Total 316.83 ml 1500 ml 1285 ml Output Total 730 ml 1320 ml Balance 316.83 ml 770 ml -35 ml Exam GENERAL: Chronically ill-appearing lady appears comfortable at rest VITAL SIGNS: per chart NECK: Supple. No JVD or lymphadenopathy. CARDIAC EXAM: S1, S2. No added sounds or murmurs. CHEST: Decreased air entry bilaterally at both lung bases ABDOMEN: Soft, nontender. No guarding or rebound. EXTREMITIES: No cyanosis, clubbing or edema. NEUROLOGIC: Generalized weakness. No focal deficits. Results/Medications Result Diagram: 05/01/162 05/01/16 0442 Results 24 hrs Laboratory Tests Test 04/30/16 21:16 05/01/16 04:42 05/01/16 09:16 Bedside Glucose 158 128 White Blood Count 6.2 Red Blood Count 3.79 L Hemoglobin 11.3 L Hematocrit 34.0 L Mean Corpuscular Volume 89.7 Mean Corpuscular Hemoglobin 29.8 Mean Corpuscular Hemoglobin Concent 33.2 Red Cell Distribution Width 16.7 H Platelet Count 81 L Mean Platelet Volume 12.1 H Neutrophils % 80.3 H Lymphocytes % 10.6 L Monocytes % 5.8 Eosinophils % 2.3 Basophils % 0.2 Nucleated Red Blood Cells % 0.0 Neutrophils # 5.0 Lymphocytes # 0.7 L Monocytes # 0.4 Eosinophils # 0.1 Basophils # 0.0 Nucleated Red Blood Cells # 0.0 Sodium Level 135 Potassium Level 3.8 Chloride Level 101 Carbon Dioxide Level 27 Anion Gap 11 Blood Urea Nitrogen 23 H Creatinine 0.66 Glucose Level 140 Calcium Level 7.5 L Medications Current Medications Zolpidem Tartrate (Ambien) 5 mg HS PRN PO INSOMNIA Last administered on 23:48; Admin Dose 5 MG; Start 04/01/16 at 22:00 Diphenhydramine HCl (Benadryl) 25 mg Q6H PRN PO ITCHING Last administered on 06:49; Admin Dose 25 MG; Start 04/02/16 at 07:00 Al Hydrox/Mg Hydrox/Simethicone (Mag-Al Plus) 30 ml Q6H PRN PO GASTROINTESTINAL UPSET Last administered on 04/06/16 19:40; Admin Dose 30 ML; Start 04/02/16 at 17:30 Clonidine HCl 1 patch 1 patch Q7D TRANSDERM Last administered on 04/25/16 13: 01; Admin Dose 1 PATCH; Start 04/04/16 at 13:15 Albumin Human (Alburx) 500 ml @ 250 mls/hr ONCE PRN IVPB U/O BELOW 30 ML/HR X 2 HR; Start 04/07/16 at 22:30 Pantoprazole (Protonix Iv) 40 mg DAILY@06 IV Last administered on 05/01/16 05: 39; Admin Dose 40 MG; Start 04/08/16 at 06:00 Hydralazine HCl 10 mg 10 mg Q4H PRN IV HTN Last administered on 04/25/16 00:51 ; Admin Dose 10 MG; Start 04/13/16 at 20:00 Ondansetron HCl/ Dextrose (Zofran Inj/D5W) 54 ml @ 108 mls/hr Q6H PRN IV NAUSEA AND/OR VOMITING Last administered on 04/29/16 10:42; Admin Dose 108 MLS/ HR; Start 04/15/16 at 12:30 Diagnostic Test (Pha) (Accucheck) 1 ea Q12 XX Last administered on 05/01/16 09 :22; Admin Dose 1 EA; Start 04/18/16 at 09:00 Lorazepam 1 mg 1 mg Q6H PRN IV ANXIETY Last administered on 04/28/16 09:41; Admin Dose 1 MG; Start 04/21/16 at 18:11 Metronidazole (Flagyl 500 Mg (Pmx)) 100 ml @ 100 mls/hr Q8 IVPB Last administered on 05/01/16 05:39; Admin Dose 100 MLS/HR; Start 04/25/16 at 03:00 Hydromorphone HCl 0.5MG DOSE 20... Q4PCA IV Last administered on 05/01/16 07: 12; Admin Dose 6 MG; Start 04/27/16 at 15:30 Acetaminophen (Ofirmev 1000mg/ 100ml Iv) 100 ml @ 400 mls/hr Q6H IVPB Last administered on 05/01/16 10:28; Admin Dose 400 MLS/HR; Start 04/27/16 at 16:00 Fentanyl 1 patch 1 patch Q72H TRANSDERM Last administered on 04/30/16 19:31; Admin Dose 1 PATCH; Start 04/27/16 at 17:00 Fat Emulsion Intravenous 250 ml @ 10.417 mls/ hr Q24H IV Last administered on 04/30/16 17:53; Admin Dose 10.417 MLS/HR; Start 04/27/16 at 18:00 Total Parenteral Nutrition (Tpn) 1,000 ml @ 70 mls/hr [id number] IV Last administered on 05/01/16 08:15; Admin Dose 70 MLS/HR; Start 04/27/16 at 18:00 Mupirocin (Bactroban) 1 applic BID TOP Last administered on 05/01/16 09:23; Admin Dose 1 APPLIC; Start 04/27/16 at 21:00 Metoclopramide HCl (Reglan) 10 mg Q6 IV Last administered on 05/01/16 05:39; Admin Dose 10 MG; Start 04/29/16 at 12:00 Octreotide Acetate (Sandostatin) 100 mcg TID SC Last administered on 05/01/16 09:20; Admin Dose 100 MCG; Start 04/29/16 at 13:00 Hydromorphone HCl (Dilaudid) 0.5 mg Q2 PRN IV SEVERE PAIN LEVEL 7-10 Last administered on 05/01/16 11:41; Admin Dose 0.5 MG; Start 04/30/16 at 12:00 Diphenhydramine HCl 25 mg 25 mg Q6H PRN IV ALLERGIC REACTION Last administered on 04/30/16 12:16; Admin Dose 25 MG; Start 04/30/16 at 12:10 Imipenem/ Cilastatin Sodium 100 ml @ 100 mls/hr Q8 IVPB Last administered on 07:05; Admin Dose 100 MLS/HR; Start 04/30/16 at 22:00 Ciprofloxacin/ Dextrose (Cipro Ivpb) 200 ml @ 200 mls/hr Q12 IVPB Last administered on 05/01/16 09:17; Admin Dose 200 MLS/HR; Start 04/30/16 at 21:00 Methylnaltrexone [place] (Relistor) 12 mg Q48H SC ; Start 05/02/16 at 09:00 Assessment/Plan Chief Complaint/Hosp Course Assessment 1. Metastatic ovarian cancer status post debulking surgery 2. Status post respiratory failure 3. Small bilateral pleural effusions possibly secondary to volume overload 4. Thrombocytopenia Plan 1. Continue wound care 2. Continue hemoglobin recommendations 3. Continue incentive spirometry 4. Chest x-ray Problems: NORA ARGUELLES MD, [facility] May 01, 2016 12:14
[2016-05-01] MEDS: DIPHENHYDRAMINE 50 MG INJ IV PRN ×2 (13:54→20:38)
--- NOTE | 2016-05-01 14:15 | CONS ---
Date/Time of Note Date/Time of Note DATE: 05/01/16 TIME: 14:14 Assessment/Plan Assessment/Plan Chief Complaint/Hosp Course 61-year-old female with stage IIIB ovarian cancer s/p surgery by Dr. Johnston in May 2015 and 6 cycles of carbo/taxol with persistently elevated CA125, recently admitted to outside hospital with CT concerning for persistent disease. Pt is now s/p optimal CRS for recurrent disease on 04/08. She was left with < 5mm of residual disease. She now has increased drainage from the wound site and the wound is open. Latest CT done yesterday is consistent with bowel leak. Pt was taken again to OR on 04/24 where she underwent a small bowel resection and anastomosis as well as incisional hernia repair. Intraoperatively pt was noted to have progressive disease and a fistula. - post op care per Dr. Dave. post transfusion CBC reveals HG> 11. Will defer transfusion requirement to Dr. Johnston in this post operative setting - Continue Sandostatin as the drainage appears to be less with this - Given report by nurses of possible allergic reaction to Vanco, abx changed ( currently cipro/imipenem/flagyl) based on sensitivities of organisms on C&S per Dr. Johnston - Agree with keeping NPO with TPN as patient has a known fistula. Pt is now having bowel movement and bowel leak appears to have resolved - LE Doppler do not reveal evidence of DVT - continue Zofran to 8mg IV q 6 prn nausea. nausea now under control - plan to start adjuvant chemotherapy in house when cleared by [facility] onc. plan to give 1 dose of Gemcitabine/ Cisplatin. - appreciate pain management recs. Pt now on Fentanyl patch,and Dilaudid [employer] Problems: Consultation Date/Type/Reason Admit Date/Time Apr 02, 2016 at 10:07 Initial Consult Date 04/02/16 Type of Consultation: Hematology/Oncology Referring Provider: BRIAN ZAZUETA MD 24 HR Interval Summary Free Text/Dictation Patient denies pain or nausea. Exam/Review of Systems Vital Signs Vitals Vital Signs Date Time Temp Pulse Resp B/P Pulse Ox O2 Delivery O2 Flow Rate FiO2 05/01/16 08:32 98.7 85 18 114/75 96 05/01/16 06:10 Nasal Cannula 2.0 Intake and Output 04/30/16 04/30/16 05/01/16 15:00 23:00 07:00 Intake Total 316.83 ml 1500 ml 1285 ml Output Total 730 ml 1320 ml Balance 316.83 ml 770 ml -35 ml Exam Constitutional: distress, frail Psych: anxiety, depression Head: normocephalic Eyes: nl conjunctiva ENMT: nl external ears & nose Neck: non-tender, supple Respiratory: clear to auscultation Gastrointestinal: other (dressing in place. drainage is less) Musculoskeletal: nl extremities to inspection, nl gait and stance Results Result Diagram: 05/01/162 05/01/16 0442 Results 24 hrs Laboratory Tests Test 04/30/16 21:16 05/01/16 04:42 05/01/16 09:16 Bedside Glucose 158 128 White Blood Count 6.2 Red Blood Count 3.79 L Hemoglobin 11.3 L Hematocrit 34.0 L Mean Corpuscular Volume 89.7 Mean Corpuscular Hemoglobin 29.8 Mean Corpuscular Hemoglobin Concent 33.2 Red Cell Distribution Width 16.7 H Platelet Count 81 L Mean Platelet Volume 12.1 H Neutrophils % 80.3 H Lymphocytes % 10.6 L Monocytes % 5.8 Eosinophils % 2.3 Basophils % 0.2 Nucleated Red Blood Cells % 0.0 Neutrophils # 5.0 Lymphocytes # 0.7 L Monocytes # 0.4 Eosinophils # 0.1 Basophils # 0.0 Nucleated Red Blood Cells # 0.0 Sodium Level 135 Potassium Level 3.8 Chloride Level 101 Carbon Dioxide Level 27 Anion Gap 11 Blood Urea Nitrogen 23 H Creatinine 0.66 Glucose Level 140 Calcium Level 7.5 L Medications Medications Current Medications Zolpidem Tartrate (Ambien) 5 mg HS PRN PO INSOMNIA Last administered on 23:48; Admin Dose 5 MG; Start 04/01/16 at 22:00 Diphenhydramine HCl (Benadryl) 25 mg Q6H PRN PO ITCHING Last administered on 06:49; Admin Dose 25 MG; Start 04/02/16 at 07:00 Al Hydrox/Mg Hydrox/Simethicone (Mag-Al Plus) 30 ml Q6H PRN PO GASTROINTESTINAL UPSET Last administered on 04/06/16 19:40; Admin Dose 30 ML; Start 04/02/16 at 17:30 Clonidine HCl 1 patch 1 patch Q7D TRANSDERM Last administered on 04/25/16 13: 01; Admin Dose 1 PATCH; Start 04/04/16 at 13:15 Albumin Human (Alburx) 500 ml @ 250 mls/hr ONCE PRN IVPB U/O BELOW 30 ML/HR X 2 HR; Start 04/07/16 at 22:30 Pantoprazole (Protonix Iv) 40 mg DAILY@06 IV Last administered on 05/01/16 05: 39; Admin Dose 40 MG; Start 04/08/16 at 06:00 Hydralazine HCl 10 mg 10 mg Q4H PRN IV HTN Last administered on 04/25/16 00:51 ; Admin Dose 10 MG; Start 04/13/16 at 20:00 Ondansetron HCl/ Dextrose (Zofran Inj/D5W) 54 ml @ 108 mls/hr Q6H PRN IV NAUSEA AND/OR VOMITING Last administered on 04/29/16 10:42; Admin Dose 108 MLS/ HR; Start 04/15/16 at 12:30 Diagnostic Test (Pha) (Accucheck) 1 ea Q12 XX Last administered on 05/01/16 09 :22; Admin Dose 1 EA; Start 04/18/16 at 09:00 Lorazepam 1 mg 1 mg Q6H PRN IV ANXIETY Last administered on 04/28/16 09:41; Admin Dose 1 MG; Start 04/21/16 at 18:11 Metronidazole (Flagyl 500 Mg (Pmx)) 100 ml @ 100 mls/hr Q8 IVPB Last administered on 05/01/16 13:47; Admin Dose 100 MLS/HR; Start 04/25/16 at 03:00 Hydromorphone HCl 0.5MG DOSE 20... Q4PCA IV Last administered on 05/01/16 07: 12; Admin Dose 6 MG; Start 04/27/16 at 15:30 Acetaminophen (Ofirmev 1000mg/ 100ml Iv) 100 ml @ 400 mls/hr Q6H IVPB Last administered on 05/01/16 10:28; Admin Dose 400 MLS/HR; Start 04/27/16 at 16:00 Fentanyl 1 patch 1 patch Q72H TRANSDERM Last administered on 04/30/16 19:31; Admin Dose 1 PATCH; Start 04/27/16 at 17:00 Fat Emulsion Intravenous 250 ml @ 10.417 mls/ hr Q24H IV Last administered on 04/30/16 17:53; Admin Dose 10.417 MLS/HR; Start 04/27/16 at 18:00 Total Parenteral Nutrition (Tpn) 1,000 ml @ 70 mls/hr [id number] IV Last administered on 05/01/16 08:15; Admin Dose 70 MLS/HR; Start 04/27/16 at 18:00 Mupirocin (Bactroban) 1 applic BID TOP Last administered on 05/01/16 09:23; Admin Dose 1 APPLIC; Start 04/27/16 at 21:00 Metoclopramide HCl (Reglan) 10 mg Q6 IV Last administered on 05/01/16 12:27; Admin Dose 10 MG; Start 04/29/16 at 12:00 Octreotide Acetate (Sandostatin) 100 mcg TID SC Last administered on 05/01/16 09:20; Admin Dose 100 MCG; Start 04/29/16 at 13:00 Hydromorphone HCl (Dilaudid) 0.5 mg Q2 PRN IV SEVERE PAIN LEVEL 7-10 Last administered on 05/01/16 11:41; Admin Dose 0.5 MG; Start 04/30/16 at 12:00 Diphenhydramine HCl 25 mg 25 mg Q6H PRN IV ALLERGIC REACTION Last administered on 05/01/16 13:54; Admin Dose 25 MG; Start 04/30/16 at 12:10 Imipenem/ Cilastatin Sodium 100 ml @ 100 mls/hr Q8 IVPB Last administered on 07:05; Admin Dose 100 MLS/HR; Start 04/30/16 at 22:00 Ciprofloxacin/ Dextrose (Cipro Ivpb) 200 ml @ 200 mls/hr Q12 IVPB Last administered on 05/01/16 09:17; Admin Dose 200 MLS/HR; Start 04/30/16 at 21:00 Methylnaltrexone [place] (Relistor) 12 mg Q48H SC ; Start 05/02/16 at 09:00 SEE BOYCE MD May 01, 2016 14:15
[2016-05-01 16:00] VITALS: BP 116/64; PULSE 70; RESP 17
--- NOTE | 2016-05-01 16:51 | CONS ---
Date/Time of Note Date/Time of Note DATE: 05/01/16 TIME: 16:37 Assessment/Plan Assessment/Plan Chief Complaint/Hosp Course 1. Recurrent advanced ovarian ca--progressing despite recent debulking 2. s/p debulking bowel resection 3. enterocutaneous fistula 4. Intra-abdominal abscesses, 3.1617 CT shows: 1. Linear area of contrast extravasation along the medial and superior aspect of the small bowel anastomosis in the central lower abdomen confirms the clinical suspicion for a bowel leakage with extraluminal and contained gas in the small bowel mesentery. 2. Multiple intraperitoneal abscesses are predominately cephalad to the existing percutaneous drainage catheter that terminates in the left lower quadrant. 3. Fistulous tract between the dehiscent anterior midline abdominal wound and a smaller right anterior peritoneal cavity abscess. 4. Small perihepatic abscesses are present similar to the prior examination. 5. Adynamic ileus pattern without evidence of obstruction, enteric contrast media reaches the transverse colon." 5. Possible allergic reaction to Vanco R: Dapto ck, repeat in 1 week Imipenem repeat imaging prior to cessation of abx will d/w rest of team prognosis appears grim Problems: Consultation Date/Type/Reason Admit Date/Time Apr 02, 2016 at 10:07 Date of Consultation: May 01, 2016 Reason for Consultation abx recommendations Hx of Present Illness The patient is a 61-year-old female with history of ovarian carcinoma with metastasis.She is s/p further debulking on this admission as well as bowel resection. Recent imaging suggested intra-peritoneal abscesses, fisulas, bowel leakage and sadly further progressive metastatic disease apparently despite recent debulking. Sadly she has had intractable intra-abdominal pain. Recent intra-op cxs have shown MRSA and ESBL E.coli. . She was recently on Vanco/Zosyn and this was changed to Imipenem alone as there was concern for a possible allergic reaction to Vanco. Constitutional: improved Eyes: no complaints ENT: no complaints Respiratory: no complaints Cardiovascular: no complaints Gastrointestinal: pain Genitourinary: no complaints Musculoskeletal: no complaints Skin: no complaints Neurologic: no complaints Endocrine: no complaints Lymphatic: no complaints Psychological: nl mood/affect Immunologic: no complaints Social History Smoking Status: Never smoker Exam/Review of Systems Vital Signs Vitals Vital Signs Date Time Temp Pulse Resp B/P Pulse Ox O2 Delivery O2 Flow Rate FiO2 05/01/16 13:00 16 3/24/17 08:32 98.7 85 114/75 96 05/01/16 06:10 Nasal Cannula 2.0 Intake and Output 04/30/16 04/30/16 05/01/16 15:00 23:00 07:00 Intake Total 316.83 ml 1500 ml 1285 ml Output Total 730 ml 1320 ml Balance 316.83 ml 770 ml -35 ml Exam Constitutional: alert Psych: anxiety Head: atraumatic, normocephalic Eyes: EOMI, PERRL, nl conjunctiva, nl lids, nl sclera Respiratory: clear to auscultation, normal air movement Cardiovascular: nl pulses, regular rate and rhythm Gastrointestinal: other (bandaged) Musculoskeletal: nl extremities to inspection, nl gait and stance Results Result Diagram: 05/01/1644105/01/162 Results 24 hrs Laboratory Tests Test 04/30/16 21:16 05/01/16 04:42 05/01/16 09:16 Bedside Glucose 158 128 White Blood Count 6.2 Red Blood Count 3.79 L Hemoglobin 11.3 L Hematocrit 34.0 L Mean Corpuscular Volume 89.7 Mean Corpuscular Hemoglobin 29.8 Mean Corpuscular Hemoglobin Concent 33.2 Red Cell Distribution Width 16.7 H Platelet Count 81 L Mean Platelet Volume 12.1 H Neutrophils % 80.3 H Lymphocytes % 10.6 L Monocytes % 5.8 Eosinophils % 2.3 Basophils % 0.2 Nucleated Red Blood Cells % 0.0 Neutrophils # 5.0 Lymphocytes # 0.7 L Monocytes # 0.4 Eosinophils # 0.1 Basophils # 0.0 Nucleated Red Blood Cells # 0.0 Sodium Level 135 Potassium Level 3.8 Chloride Level 101 Carbon Dioxide Level 27 Anion Gap 11 Blood Urea Nitrogen 23 H Creatinine 0.66 Glucose Level 140 Calcium Level 7.5 L Medications Medications Current Medications Zolpidem Tartrate (Ambien) 5 mg HS PRN PO INSOMNIA Last administered on 23:48; Admin Dose 5 MG; Start 04/01/16 at 22:00 Diphenhydramine HCl (Benadryl) 25 mg Q6H PRN PO ITCHING Last administered on 06:49; Admin Dose 25 MG; Start 04/02/16 at 07:00 Al Hydrox/Mg Hydrox/Simethicone (Mag-Al Plus) 30 ml Q6H PRN PO GASTROINTESTINAL UPSET Last administered on 04/06/16 19:40; Admin Dose 30 ML; Start 04/02/16 at 17:30 Clonidine HCl 1 patch 1 patch Q7D TRANSDERM Last administered on 04/25/16 13: 01; Admin Dose 1 PATCH; Start 04/04/16 at 13:15 Albumin Human (Alburx) 500 ml @ 250 mls/hr ONCE PRN IVPB U/O BELOW 30 ML/HR X 2 HR; Start 04/07/16 at 22:30 Pantoprazole (Protonix Iv) 40 mg DAILY@06 IV Last administered on 05/01/16 05: 39; Admin Dose 40 MG; Start 04/08/16 at 06:00 Hydralazine HCl 10 mg 10 mg Q4H PRN IV HTN Last administered on 04/25/16 00:51 ; Admin Dose 10 MG; Start 04/13/16 at 20:00 Ondansetron HCl/ Dextrose (Zofran Inj/D5W) 54 ml @ 108 mls/hr Q6H PRN IV NAUSEA AND/OR VOMITING Last administered on 04/29/16 10:42; Admin Dose 108 MLS/ HR; Start 04/15/16 at 12:30 Diagnostic Test (Pha) (Accucheck) 1 ea Q12 XX Last administered on 05/01/16 09 :22; Admin Dose 1 EA; Start 04/18/16 at 09:00 Lorazepam 1 mg 1 mg Q6H PRN IV ANXIETY Last administered on 04/28/16 09:41; Admin Dose 1 MG; Start 04/21/16 at 18:11 Metronidazole (Flagyl 500 Mg (Pmx)) 100 ml @ 100 mls/hr Q8 IVPB Last administered on 05/01/16 13:47; Admin Dose 100 MLS/HR; Start 04/25/16 at 03:00 Hydromorphone HCl 0.5MG DOSE 20... Q4PCA IV Last administered on 05/01/16 14: 35; Admin Dose 6 MG; Start 04/27/16 at 15:30 Acetaminophen (Ofirmev 1000mg/ 100ml Iv) 100 ml @ 400 mls/hr Q6H IVPB Last administered on 05/01/16 16:01; Admin Dose 400 MLS/HR; Start 04/27/16 at 16:00 Fentanyl 1 patch 1 patch Q72H TRANSDERM Last administered on 04/30/16 19:31; Admin Dose 1 PATCH; Start 04/27/16 at 17:00 Fat Emulsion Intravenous 250 ml @ 10.417 mls/ hr Q24H IV Last administered on 04/30/16 17:53; Admin Dose 10.417 MLS/HR; Start 04/27/16 at 18:00 Total Parenteral Nutrition (Tpn) 1,000 ml @ 70 mls/hr [id number] IV Last administered on 05/01/16 08:15; Admin Dose 70 MLS/HR; Start 04/27/16 at 18:00 Mupirocin (Bactroban) 1 applic BID TOP Last administered on 05/01/16 09:23; Admin Dose 1 APPLIC; Start 04/27/16 at 21:00 Metoclopramide HCl (Reglan) 10 mg Q6 IV Last administered on 05/01/16 12:27; Admin Dose 10 MG; Start 04/29/16 at 12:00 Octreotide Acetate (Sandostatin) 100 mcg TID SC Last administered on 05/01/16 14:28; Admin Dose 100 MCG; Start 04/29/16 at 13:00 Hydromorphone HCl (Dilaudid) 0.5 mg Q2 PRN IV SEVERE PAIN LEVEL 7-10 Last administered on 05/01/16 11:41; Admin Dose 0.5 MG; Start 04/30/16 at 12:00 Diphenhydramine HCl 25 mg 25 mg Q6H PRN IV ALLERGIC REACTION Last administered on 05/01/16 13:54; Admin Dose 25 MG; Start 04/30/16 at 12:10 Imipenem/ Cilastatin Sodium 100 ml @ 100 mls/hr Q8 IVPB Last administered on 14:41; Admin Dose 100 MLS/HR; Start 04/30/16 at 22:00 Ciprofloxacin/ Dextrose (Cipro Ivpb) 200 ml @ 200 mls/hr Q12 IVPB Last administered on 05/01/16 09:17; Admin Dose 200 MLS/HR; Start 04/30/16 at 21:00 Methylnaltrexone [place] 12 mg 12 mg Q48H SC ; Start 05/02/16 at 09:00 Daptomycin/Sodium Chloride (Cubicin/NS) 100 ml @ 200 mls/hr Q24H IVPB ; Start 05/01/16 at 18:00 ANA LAURA MARTINEZ MD May 01, 2016 16:48
[2016-05-01] MEDS: FAT EMULSION 20% 250 ML IV SCH (17:34)
[2016-05-01] MEDS: DAPTOMYCIN 400 MG in SOD CHLORIDE 0.9% 100 ML IVPB SCH (18:38)
[2016-05-01 20:30] VITALS: BP 140/68; PULSE 83; RESP 19
--- NOTE | 2016-05-01 20:51 | PN ---
Date/Time of Note Date/Time of Note DATE: 05/01/16 TIME: 20:35 Assessment/Plan VTE Prophylaxis VTE Prophylaxis Intervention: SCD's Lines/Catheters IV [facility] Peripheral IV Urinary Cath still in place: Yes Assessment/Plan Chief Complaint/Hosp Course Ovarian cancer with recurrence would benefit from secondary CRS even though persistent disease because the problem is her chemo was delayed 3 months postop. Informed of need to start chemo nathan postop and will call [facility] Problems: Assessment/Plan A- doing reasonably well but suggestion of minimal ongoing small fistula P- Keep in NGT and NPO on TPN and increase Sandostatin further started due to risk of fistula. Will check labs and after advancing Sandostatin a.m. possibly d/c NGT; additional delay needed Subjective 24 Hr Interval Summary Free Text/Dictation S- Less pain and breaths easier but slight wound soilage O- Resp- clear CVS- NSR Abd- appropriate tenderness and incision adequately packed but suggestion of minimal enteric leakage thru distal incision but drain clear Ext- NT less edema A- doing reasonably well but suggestion of minimal ongoing small fistula P- Keep in NGT and NPO on TPN and increase Sandostatin further started due to risk of fistula. Will check labs and after advancing Sandostatin a.m. possibly d/c NGT; additional delay needed Exam/Review of Systems Vital Signs Vitals Vital Signs Date Time Temp Pulse Resp B/P Pulse Ox O2 Delivery O2 Flow Rate FiO2 05/01/16 13:00 16 05/01/16 08:32 98.7 85 114/75 96 05/01/16 06:10 Nasal Cannula 2.0 Intake and Output 04/30/16 04/30/16 05/01/16 15:00 23:00 07:00 Intake Total 316.83 ml 1500 ml 1285 ml Output Total 730 ml 1320 ml Balance 316.83 ml 770 ml -35 ml Results Result Diagram: 05/01/1644105/01/16441 Results 24 hrs Laboratory Tests Test 04/30/16 21:16 05/01/16 04:42 05/01/16 09:16 05/01/16 18:30 Bedside Glucose 158 128 White Blood Count 6.2 Red Blood Count 3.79 L Hemoglobin 11.3 L Hematocrit 34.0 L Mean Corpuscular Volume 89.7 Mean Corpuscular Hemoglobin 29.8 Mean Corpuscular Hemoglobin Concent 33.2 Red Cell Distribution Width 16.7 H Platelet Count 81 L Mean Platelet Volume 12.1 H Neutrophils % 80.3 H Lymphocytes % 10.6 L Monocytes % 5.8 Eosinophils % 2.3 Basophils % 0.2 Nucleated Red Blood Cells % 0.0 Neutrophils # 5.0 Lymphocytes # 0.7 L Monocytes # 0.4 Eosinophils # 0.1 Basophils # 0.0 Nucleated Red Blood Cells # 0.0 Sodium Level 135 Potassium Level 3.8 Chloride Level 101 Carbon Dioxide Level 27 Anion Gap 11 Blood Urea Nitrogen 23 H Creatinine 0.66 Glucose Level 140 Calcium Level 7.5 L Creatine Kinase 32 Medications Medications Current Medications Zolpidem Tartrate (Ambien) 5 mg HS PRN PO INSOMNIA Last administered on 23:48; Admin Dose 5 MG; Start 04/01/16 at 22:00 Diphenhydramine HCl (Benadryl) 25 mg Q6H PRN PO ITCHING Last administered on 06:49; Admin Dose 25 MG; Start 04/02/16 at 07:00 Al Hydrox/Mg Hydrox/Simethicone (Mag-Al Plus) 30 ml Q6H PRN PO GASTROINTESTINAL UPSET Last administered on 04/06/16 19:40; Admin Dose 30 ML; Start 04/02/16 at 17:30 Clonidine HCl 1 patch 1 patch Q7D TRANSDERM Last administered on 04/25/16 13: 01; Admin Dose 1 PATCH; Start 04/04/16 at 13:15 Albumin Human (Alburx) 500 ml @ 250 mls/hr ONCE PRN IVPB U/O BELOW 30 ML/HR X 2 HR; Start 04/07/16 at 22:30 Pantoprazole (Protonix Iv) 40 mg DAILY@06 IV Last administered on 05/01/16 05: 39; Admin Dose 40 MG; Start 04/08/16 at 06:00 Hydralazine HCl 10 mg 10 mg Q4H PRN IV HTN Last administered on 04/25/16 00:51 ; Admin Dose 10 MG; Start 04/13/16 at 20:00 Ondansetron HCl/ Dextrose (Zofran Inj/D5W) 54 ml @ 108 mls/hr Q6H PRN IV NAUSEA AND/OR VOMITING Last administered on 04/29/16 10:42; Admin Dose 108 MLS/ HR; Start 04/15/16 at 12:30 Diagnostic Test (Pha) (Accucheck) 1 ea Q12 XX Last administered on 05/01/16 09 :22; Admin Dose 1 EA; Start 04/18/16 at 09:00 Lorazepam 1 mg 1 mg Q6H PRN IV ANXIETY Last administered on 04/28/16 09:41; Admin Dose 1 MG; Start 04/21/16 at 18:11 Metronidazole (Flagyl 500 Mg (Pmx)) 100 ml @ 100 mls/hr Q8 IVPB Last administered on 05/01/16 13:47; Admin Dose 100 MLS/HR; Start 04/25/16 at 03:00 Hydromorphone HCl 0.5MG DOSE 20... Q4PCA IV Last administered on 05/01/16 14: 35; Admin Dose 6 MG; Start 04/27/16 at 15:30 Acetaminophen (Ofirmev 1000mg/ 100ml Iv) 100 ml @ 400 mls/hr Q6H IVPB Last administered on 05/01/16 16:01; Admin Dose 400 MLS/HR; Start 04/27/16 at 16:00 Fentanyl 1 patch 1 patch Q72H TRANSDERM Last administered on 04/30/16 19:31; Admin Dose 1 PATCH; Start 04/27/16 at 17:00 Fat Emulsion Intravenous 250 ml @ 10.417 mls/ hr Q24H IV Last administered on 05/01/16 17:34; Admin Dose 10.417 MLS/HR; Start 04/27/16 at 18:00 Total Parenteral Nutrition (Tpn) 1,000 ml @ 70 mls/hr [id number] IV Last administered on 05/01/16 08:15; Admin Dose 70 MLS/HR; Start 04/27/16 at 18:00 Mupirocin (Bactroban) 1 applic BID TOP Last administered on 05/01/16 09:23; Admin Dose 1 APPLIC; Start 04/27/16 at 21:00 Metoclopramide HCl (Reglan) 10 mg Q6 IV Last administered on 05/01/16 17:33; Admin Dose 10 MG; Start 04/29/16 at 12:00 Octreotide Acetate (Sandostatin) 100 mcg TID SC Last administered on 05/01/16 14:28; Admin Dose 100 MCG; Start 04/29/16 at 13:00 Hydromorphone HCl (Dilaudid) 0.5 mg Q2 PRN IV SEVERE PAIN LEVEL 7-10 Last administered on 05/01/16 11:41; Admin Dose 0.5 MG; Start 04/30/16 at 12:00 Diphenhydramine HCl 25 mg 25 mg Q6H PRN IV ALLERGIC REACTION Last administered on 05/01/16 13:54; Admin Dose 25 MG; Start 04/30/16 at 12:10 Imipenem/ Cilastatin Sodium 100 ml @ 100 mls/hr Q8 IVPB Last administered on 14:41; Admin Dose 100 MLS/HR; Start 04/30/16 at 22:00 Ciprofloxacin/ Dextrose (Cipro Ivpb) 200 ml @ 200 mls/hr Q12 IVPB Last administered on 05/01/16 09:17; Admin Dose 200 MLS/HR; Start 04/30/16 at 21:00 Methylnaltrexone [place] 12 mg 12 mg Q48H SC ; Start 05/02/16 at 09:00 Daptomycin/Sodium Chloride (Cubicin/NS) 100 ml @ 200 mls/hr Q24H IVPB Last administered on 05/01/16 18:38; Admin Dose 200 MLS/HR; Start 05/01/16 at 18:00 ANDI WADDELL MD May 01, 2016 20:45
[2016-05-02] MEDS: HYDROmorphONE 1 MG/ML SYG IV PRN ×7 (01:59→21:09)
[2016-05-02] MEDS: DIPHENHYDRAMINE 50 MG INJ IV PRN (02:53)
[2016-05-02] MEDS: ACETAMINOPHEN 1000MG/100ML IV 100 ML IVPB SCH ×4 (04:12→22:39)
[2016-05-02] MEDS: IMIPENEM-CILAST 500MG IV (PMX) 100 ML IVPB SCH ×3 (06:41→22:39)
[2016-05-02] MEDS: METOCLOPRAMIDE 10 MG INJ IV SCH ×3 (06:41→17:59)
[2016-05-02] MEDS: PANTOPRAZOLE 40 MG INJ IV SCH (06:41)
[2016-05-02] MEDS: FUROSEMIDE 20 MG INJ IV SCH ×3 (06:46→18:06)
[2016-05-02 07:00] VITALS: BP 118/61; RESP 18
--- NOTE | 2016-05-02 07:13 | CONS ---
Date/Time of Note Date/Time of Note DATE: 05/02/16 TIME: 07:12 Assessment/Plan Assessment/Plan Chief Complaint/Hosp Course 1. Recurrent advanced ovarian ca--progressing despite recent debulking 2. s/p debulking bowel resection 3. enterocutaneous fistula 4. Intra-abdominal abscesses, 3. CT shows: 1. Linear area of contrast extravasation along the medial and superior aspect of the small bowel anastomosis in the central lower abdomen confirms the clinical suspicion for a bowel leakage with extraluminal and contained gas in the small bowel mesentery. 2. Multiple intraperitoneal abscesses are predominately cephalad to the existing percutaneous drainage catheter that terminates in the left lower quadrant. 3. Fistulous tract between the dehiscent anterior midline abdominal wound and a smaller right anterior peritoneal cavity abscess. 4. Small perihepatic abscesses are present similar to the prior examination. 5. Adynamic ileus pattern without evidence of obstruction, enteric contrast media reaches the transverse colon." 5. Possible allergic reaction to Vanco R: Dapto ck, repeat in 1 week Imipenem repeat imaging prior to cessation of abx will d/w rest of team prognosis appears grim Problems: Consultation Date/Type/Reason Admit Date/Time Apr 02, 2016 at 10:07 Initial Consult Date 05/01/16 Type of Consultation: id Referring Provider: BRIAN ZAZUETA MD Exam/Review of Systems Vital Signs Vitals Vital Signs Date Time Temp Pulse Resp B/P Pulse Ox O2 Delivery O2 Flow Rate FiO2 05/01/16 20:30 98.3 83 19 140/68 99 Room Air 05/01/16 06:10 2.0 Intake and Output 05/01/16 05/01/16 05/02/16 15:00 23:00 07:00 Intake Total 980 ml 400 ml Output Total 460 ml 790 ml 70 ml Balance 520 ml -390 ml -70 ml Results Result Diagram: 05/01/16 0442 05/01/16 0442 Results 24 hrs Laboratory Tests Test 05/01/16 09:16 05/01/16 18:30 05/01/16 21:41 Bedside Glucose 128 162 Creatine Kinase 32 Medications Medications Current Medications Zolpidem Tartrate (Ambien) 5 mg HS PRN PO INSOMNIA Last administered on t 23:48; Admin Dose 5 MG; Start 04/01/16 at 22:00 Diphenhydramine HCl (Benadryl) 25 mg Q6H PRN PO ITCHING Last administered on 06:49; Admin Dose 25 MG; Start 04/02/16 at 07:00 Al Hydrox/Mg Hydrox/Simethicone (Mag-Al Plus) 30 ml Q6H PRN PO GASTROINTESTINAL UPSET Last administered on 04/06/16 19:40; Admin Dose 30 ML; Start 04/02/16 at 17:30 Clonidine HCl 1 patch 1 patch Q7D TRANSDERM Last administered on 04/25/16 13: 01; Admin Dose 1 PATCH; Start 04/04/16 at 13:15 Albumin Human (Alburx) 500 ml @ 250 mls/hr ONCE PRN IVPB U/O BELOW 30 ML/HR X 2 HR; Start 04/07/16 at 22:30 Pantoprazole (Protonix Iv) 40 mg DAILY@06 IV Last administered on 05/02/16 06: 41; Admin Dose 40 MG; Start 04/08/16 at 06:00 Hydralazine HCl 10 mg 10 mg Q4H PRN IV HTN Last administered on 04/25/16 00:51 ; Admin Dose 10 MG; Start 04/13/16 at 20:00 Ondansetron HCl/ Dextrose (Zofran Inj/D5W) 54 ml @ 108 mls/hr Q6H PRN IV NAUSEA AND/OR VOMITING Last administered on 04/29/16 10:42; Admin Dose 108 MLS/ HR; Start 04/15/16 at 12:30 Diagnostic Test (Pha) (Accucheck) 1 ea Q12 XX Last administered on 05/01/16 09 :22; Admin Dose 1 EA; Start 04/18/16 at 09:00 Lorazepam (Ativan) 1 mg Q6H PRN IV ANXIETY Last administered on 04/28/16 09:41 ; Admin Dose 1 MG; Start 04/21/16 at 18:11 Hydromorphone HCl 0.5MG DOSE 20... Q4PCA IV Last administered on 05/01/16 22: 40; Admin Dose 6 MG; Start 04/27/16 at 15:30 Acetaminophen (Ofirmev 1000mg/ 100ml Iv) 100 ml @ 400 mls/hr Q6H IVPB Last administered on 05/02/16 04:12; Admin Dose 400 MLS/HR; Start 04/27/16 at 16:00 Fentanyl 1 patch 1 patch Q72H TRANSDERM Last administered on 04/30/16 19:31; Admin Dose 1 PATCH; Start 04/27/16 at 17:00 Fat Emulsion Intravenous 250 ml @ 10.417 mls/ hr Q24H IV Last administered on 05/01/16 17:34; Admin Dose 10.417 MLS/HR; Start 04/27/16 at 18:00 Total Parenteral Nutrition (Tpn) 1,000 ml @ 70 mls/hr [id number] IV Last administered on 05/01/16 23:53; Admin Dose 70 MLS/HR; Start 04/27/16 at 18:00 Mupirocin (Bactroban) 1 applic BID TOP Last administered on 05/01/16 20:50; Admin Dose 1 APPLIC; Start 04/27/16 at 21:00 Metoclopramide HCl (Reglan) 10 mg Q6 IV Last administered on 05/02/16 06:41; Admin Dose 10 MG; Start 04/29/16 at 12:00 Octreotide Acetate (Sandostatin) 100 mcg TID SC Last administered on 05/01/16 20:39; Admin Dose 100 MCG; Start 04/29/16 at 13:00 Hydromorphone HCl (Dilaudid) 0.5 mg Q2 PRN IV SEVERE PAIN LEVEL 7-10 Last administered on 05/02/16 04:59; Admin Dose 0.5 MG; Start 04/30/16 at 12:00 Diphenhydramine HCl 25 mg 25 mg Q6H PRN IV ALLERGIC REACTION Last administered on 05/02/16 02:53; Admin Dose 25 MG; Start 04/30/16 at 12:10 Imipenem/ Cilastatin Sodium (Primaxin 500 Mg/ 100 ml (Pmx)) 100 ml @ 100 mls/ hr Q8 IVPB Last administered on 05/02/16 06:41; Admin Dose 100 MLS/HR; Start 04/30/16 at 22:00 Methylnaltrexone [place] 12 mg 12 mg Q48H SC ; Start 05/02/16 at 09:00 Daptomycin/Sodium Chloride (Cubicin/NS) 100 ml @ 200 mls/hr Q24H IVPB Last administered on 05/01/16t 18:38; Admin Dose 200 MLS/HR; Start 05/01/16 at 18:00 ANA LAURA MARTINEZ MD May 02, 2016 07:13
[2016-05-02] MEDS: MUPIROCIN 2% 22 GM OINT TOP SCH ×2 (09:14→21:17)
[2016-05-02] MEDS: METHYLNALTREXONE 12 MG/0.6 ML VIAL SC SCH (09:15)
[2016-05-02] MEDS: ACCU-CHEK XX SCH ×2 (09:15→22:39)
--- NOTE | 2016-05-02 09:48 | RADRPT ---
PROCEDURE: XR Chest. CLINICAL INDICATION: Pneumonia/CHF. TECHNIQUE: Single frontal view of the chest was obtained COMPARISON: Chest x-ray 04/27/2016 06:01 a.m. FINDINGS: The soft tissues are normal. An NG tube is positioned distal to the GE junction. There is a Port-A -Cath over the right chest wall with its tip in the distal right atrium. No pneumothorax is present . The the left ventricle is mildly enlarged. The cardiomediastinal silhouette and hilar structures are normal. The pulmonary vasculature is upper limits of normal. There are vascular calcifications in the aortic arch. There are asymmetric perihilar and basilar infiltrates greater in the left lung and right which are stable. There is a left pleural effusion. IMPRESSION: 1. Stable asymmetric interstitial pulmonary edema with left ventricular enlargement associated with a left pleural effusion. 2. Satisfactory positioning of an NG tube distal to the GE junction. 3. PICC line catheter projecting across the upper right chest wall with its tip in the distal right atrium. RPTAT:AAJJ Physician Gera Date Time Electronically viewed and signed by Physician Gera on 05/02/2016 09:47 /
[2016-05-02] MEDS: OCTREOTIDE 50 MCG INJ SC SCH ×3 (10:35→21:16)
--- NOTE | 2016-05-02 11:59 | PN ---
Date/Time of Note Date/Time of Note DATE: 05/02/16 TIME: 11:56 Assessment/Plan VTE Prophylaxis VTE Prophylaxis Intervention: anti-embolic stocking Lines/Catheters IV Catheter Type (from Nrsg): Central Line Central line still needed: Yes Urinary Cath still in place: Yes Reason Cath still needed: urinary retention Assessment/Plan Assessment/Plan 61-year-old female with stage IIIB ovarian cancer s/p surgery by Dr. Johnston in May 2015 and 6 cycles of carbo/taxol with persistently elevated CA125, recently admitted to outside hospital with CT concerning for persistent disease. Pt is now s/p optimal CRS for recurrent disease on 04/08. She was left with < 5mm of residual disease. Latest CT done is consistent with bowel leak. Pt was taken again to OR on 04/24 where she underwent a small bowel resection and anastomosis as well as incisional hernia repair. Intraoperatively pt was noted to have progressive disease and a fistula. - post op care per Dr. Dave. post transfusion CBC reveals HG> 11. Will defer transfusion requirement to Dr. Johnston in this post operative setting - Continue Sandostatin as the drainage appears to be less with this. - Given report by nurses of possible allergic reaction to Vanco, abx on ( currently imipenem/dapto) based on sensitivities of organisms on C&S per Dr. Johnston - Agree with keeping NPO with TPN as patient has a known fistula. - LE Doppler do not reveal evidence of DVT - continue Zofran to 8mg IV q 6 prn nausea. nausea now under control - plan to start adjuvant chemotherapy in house when cleared by [employer] onc. Grim prognosis with current clinical status Subjective 24 Hr Interval Summary Subjective hx not possible: pt non-verbal, pt critical status Exam/Review of Systems Vital Signs Vitals Vital Signs Date Time Temp Pulse Resp B/P Pulse Ox O2 Delivery O2 Flow Rate FiO2 05/02/16 07:00 99.0 93 18 118/61 96 05/01/16 20:30 Room Air 05/01/16 06:10 2.0 Intake and Output 05/01/16 05/01/16 05/02/16 15:00 23:00 07:00 Intake Total 980 ml 1100 ml 420 ml Output Total 460 ml 790 ml 1070 ml Balance 520 ml 310 ml -650 ml Exam pallor, abd discomfort Constitutional: distress, frail Respiratory: normal air movement Results Result Diagram: 05/01/16 0442 05/01/16 0442 Results 24 hrs Laboratory Tests Test 05/01/16 18:30 05/01/16 21:41 05/02/16 09:18 Creatine Kinase 32 Bedside Glucose 162 131 Medications Medications Current Medications Zolpidem Tartrate (Ambien) 5 mg HS PRN PO INSOMNIA Last administered on 23:48; Admin Dose 5 MG; Start 04/01/16 at 22:00 Diphenhydramine HCl (Benadryl) 25 mg Q6H PRN PO ITCHING Last administered on 06:49; Admin Dose 25 MG; Start 04/02/16 at 07:00 Al Hydrox/Mg Hydrox/Simethicone (Mag-Al Plus) 30 ml Q6H PRN PO GASTROINTESTINAL UPSET Last administered on 04/06/16 19:40; Admin Dose 30 ML; Start 04/02/16 at 17:30 Clonidine HCl 1 patch 1 patch Q7D TRANSDERM Last administered on 04/25/16 13: 01; Admin Dose 1 PATCH; Start 04/04/16 at 13:15 Albumin Human (Alburx) 500 ml @ 250 mls/hr ONCE PRN IVPB U/O BELOW 30 ML/HR X 2 HR; Start 04/07/16 at 22:30 Pantoprazole (Protonix Iv) 40 mg DAILY@06 IV Last administered on 05/02/16 06: 41; Admin Dose 40 MG; Start 04/08/16 at 06:00 Hydralazine HCl 10 mg 10 mg Q4H PRN IV HTN Last administered on 04/25/16 00:51 ; Admin Dose 10 MG; Start 04/13/16 at 20:00 Ondansetron HCl/ Dextrose (Zofran Inj/D5W) 54 ml @ 108 mls/hr Q6H PRN IV NAUSEA AND/OR VOMITING Last administered on 04/29/16 10:42; Admin Dose 108 MLS/ HR; Start 04/15/16 at 12:30 Diagnostic Test (Pha) (Accucheck) 1 ea Q12 XX Last administered on 05/02/16 09 :15; Admin Dose 1 EA; Start 04/18/16 at 09:00 Lorazepam (Ativan) 1 mg Q6H PRN IV ANXIETY Last administered on 04/28/16 09:41 ; Admin Dose 1 MG; Start 04/21/16 at 18:11 Hydromorphone HCl 0.5MG DOSE 20... Q4PCA IV Last administered on 05/01/16 22: 40; Admin Dose 6 MG; Start 04/27/16 at 15:30 Acetaminophen (Ofirmev 1000mg/ 100ml Iv) 100 ml @ 400 mls/hr Q6H IVPB Last administered on 05/02/16 10:18; Admin Dose 400 MLS/HR; Start 04/27/16 at 16:00 Fentanyl 1 patch 1 patch Q72H TRANSDERM Last administered on 04/30/16 19:31; Admin Dose 1 PATCH; Start 04/27/16 at 17:00 Fat Emulsion Intravenous 250 ml @ 10.417 mls/ hr Q24H IV Last administered on 05/01/16 17:34; Admin Dose 10.417 MLS/HR; Start 04/27/16 at 18:00 Total Parenteral Nutrition (Tpn) 1,000 ml @ 70 mls/hr [id number] IV Last administered on 05/01/16 23:53; Admin Dose 70 MLS/HR; Start 04/27/16 at 18:00 Mupirocin (Bactroban) 1 applic BID TOP Last administered on 05/02/16 09:14; Admin Dose 1 APPLIC; Start 04/27/16 at 21:00 Metoclopramide HCl (Reglan) 10 mg Q6 IV Last administered on 05/02/16 06:41; Admin Dose 10 MG; Start 04/29/16 at 12:00 Octreotide Acetate (Sandostatin) 100 mcg TID SC Last administered on 05/02/16 10:35; Admin Dose 100 MCG; Start 04/29/16 at 13:00 Hydromorphone HCl (Dilaudid) 0.5 mg Q2 PRN IV SEVERE PAIN LEVEL 7-10 Last administered on 05/02/16 10:08; Admin Dose 0.5 MG; Start 04/30/16 at 12:00 Diphenhydramine HCl 25 mg 25 mg Q6H PRN IV ALLERGIC REACTION Last administered on 05/02/16 02:53; Admin Dose 25 MG; Start 04/30/16 at 12:10 Imipenem/ Cilastatin Sodium (Primaxin 500 Mg/ 100 ml (Pmx)) 100 ml @ 100 mls/ hr Q8 IVPB Last administered on 05/02/16 06:41; Admin Dose 100 MLS/HR; Start 04/30/16 at 22:00 Methylnaltrexone [place] 12 mg 12 mg Q48H SC Last administered on 05/02/16 09: 15; Admin Dose 12 MG; Start 05/02/16 at 09:00 Daptomycin/Sodium Chloride (Cubicin/NS) 100 ml @ 200 mls/hr Q24H IVPB Last administered on 05/01/16 18:38; Admin Dose 200 MLS/HR; Start 05/01/16 at 18:00 CLAIRE AC MD May 02, 2016 11:59
[2016-05-02] MEDS: HYDROmorphONE 0.2 MG/ML PCA IV SCH (12:03)
[2016-05-02] MEDS ORDERED: OCTREOTIDE 100 MCG INJ SC SCH (13:00)
--- NOTE | 2016-05-02 13:38 | PN ---
Date/Time of Note Date/Time of Note DATE: 05/02/16 TIME: 13:33 Assessment/Plan VTE Prophylaxis VTE Prophylaxis Intervention: SCD's Lines/Catheters [facility] Central [facility] Urinary Cath still in place: Yes Assessment/Plan Assessment/Plan - Progressive recurrent ovarian carcinoma. Status post chemotherapy. Dr. Foy is following in hematology/oncology consultation. Dr. Johnston is following from a surgery standpoint. S/p bowel resection 04/07. Status post debulking surgery on 04/24. Continue follow-up per general surgery recommendations. Continue TPN and lipids. Patient is currently on octreotide. Continue broad-spectrum antibiotics. Continue wound care according to surgery recommendations. - Hypoxemic respiratory failure postoperatively, patient was weaned off ventilator extubated. Continue supplemental oxygen incentive spirometer. - Intractable abdominal pain. Dr. Green is following in pain management consultation. Continue Dilaudid PHARMACY TEACHER and fentanyl patch. - Bilateral lower extremities edema, ultrasound is negative for DVT, continue Lasix, monitor electrolytes. -Hypokalemia- resolved. Continue Lovenox for deep venous thrombosis prophylaxis and Protonix for peptic ulcer disease prophylaxis. Further recommendations based on clinical course. Plan of care was discussed with Dr. Bravo. Subjective 24 Hr Interval Summary Eyes: no complaints ENT: no complaints Respiratory: no complaints Cardiovascular: no complaints Gastrointestinal: pain Genitourinary: no complaints Musculoskeletal: no complaints Skin: no complaints Neurologic: no complaints Endocrine: no complaints Lymphatic: no complaints Psychological: no complaints Immunologic: no complaints Exam/Review of Systems Vital Signs Vitals Vital Signs Date Time Temp Pulse Resp B/P Pulse Ox O2 Delivery O2 Flow Rate FiO2 05/02/16 07:00 99.0 93 18 118/61 96 05/01/16 20:30 Room Air 05/01/16 06:10 2.0 Intake and Output 05/01/16 05/01/16 05/02/16 14:59 22:59 06:59 Intake Total 980 ml 1100 ml 420 ml Output Total 460 ml 790 ml 1070 ml Balance 520 ml 310 ml -650 ml Exam On PHARMACY TEACHER- pain is controlled. dw staff. Constitutional: alert, oriented Psych: no complaints Head: atraumatic Eyes: EOMI, PERRL, nl sclera ENMT: nl external ears & nose Neck: non-tender Respiratory: clear to auscultation Cardiovascular: nl pulses Gastrointestinal: non-tender, soft Musculoskeletal: nl extremities to inspection Extremities: normal pulses Neurological: nl mental status, nl speech Results Result Diagram: 05/01/1644105/01/16 0442 Results 24 hrs Laboratory Tests Test 05/01/16 18:30 05/01/16 21:41 05/02/16 09:18 Creatine Kinase 32 Bedside Glucose 162 131 Medications Medications Current Medications Zolpidem Tartrate (Ambien) 5 mg HS PRN PO INSOMNIA Last administered on 23:48; Admin Dose 5 MG; Start 04/01/16 at 22:00 Diphenhydramine HCl (Benadryl) 25 mg Q6H PRN PO ITCHING Last administered on 06:49; Admin Dose 25 MG; Start 04/02/16 at 07:00 Al Hydrox/Mg Hydrox/Simethicone (Mag-Al Plus) 30 ml Q6H PRN PO GASTROINTESTINAL UPSET Last administered on 04/06/16 19:40; Admin Dose 30 ML; Start 04/02/16 at 17:30 Clonidine HCl 1 patch 1 patch Q7D TRANSDERM Last administered on 04/25/16 13: 01; Admin Dose 1 PATCH; Start 04/04/16 at 13:15 Albumin Human (Alburx) 500 ml @ 250 mls/hr ONCE PRN IVPB U/O BELOW 30 ML/HR X 2 HR; Start 04/07/16 at 22:30 Pantoprazole (Protonix Iv) 40 mg DAILY@06 IV Last administered on 05/02/16 06: 41; Admin Dose 40 MG; Start 04/08/16 at 06:00 Hydralazine HCl 10 mg 10 mg Q4H PRN IV HTN Last administered on 04/25/16 00:51 ; Admin Dose 10 MG; Start 04/13/16 at 20:00 Ondansetron HCl/ Dextrose (Zofran Inj/D5W) 54 ml @ 108 mls/hr Q6H PRN IV NAUSEA AND/OR VOMITING Last administered on 04/29/16 10:42; Admin Dose 108 MLS/ HR; Start 04/15/16 at 12:30 Diagnostic Test (Pha) (Accucheck) 1 ea Q12 XX Last administered on 05/02/16 09 :15; Admin Dose 1 EA; Start 04/18/16 at 09:00 Lorazepam (Ativan) 1 mg Q6H PRN IV ANXIETY Last administered on 04/28/16 09:41 ; Admin Dose 1 MG; Start 04/21/16 at 18:11 Hydromorphone HCl 0.5MG DOSE 20... Q4PCA IV Last administered on 05/02/16 12: 03; Admin Dose 6 MG; Start 04/27/16 at 15:30 Acetaminophen (Ofirmev 1000mg/ 100ml Iv) 100 ml @ 400 mls/hr Q6H IVPB Last administered on 05/02/16 10:18; Admin Dose 400 MLS/HR; Start 04/27/16 at 16:00 Fentanyl 1 patch 1 patch Q72H TRANSDERM Last administered on 04/30/16 19:31; Admin Dose 1 PATCH; Start 04/27/16 at 17:00 Fat Emulsion Intravenous 250 ml @ 10.417 mls/ hr Q24H IV Last administered on 05/01/16 17:34; Admin Dose 10.417 MLS/HR; Start 04/27/16 at 18:00 Total Parenteral Nutrition (Tpn) 1,000 ml @ 70 mls/hr [id number] IV Last administered on 05/01/16 23:53; Admin Dose 70 MLS/HR; Start 04/27/16 at 18:00 Mupirocin (Bactroban) 1 applic BID TOP Last administered on 05/02/16 09:14; Admin Dose 1 APPLIC; Start 04/27/16 at 21:00 Metoclopramide HCl (Reglan) 10 mg Q6 IV Last administered on 05/02/16 12:07; Admin Dose 10 MG; Start 04/29/16 at 12:00 Hydromorphone HCl (Dilaudid) 0.5 mg Q2 PRN IV SEVERE PAIN LEVEL 7-10 Last administered on 05/02/16 13:08; Admin Dose 0.5 MG; Start 04/30/16 at 12:00 Diphenhydramine HCl 25 mg 25 mg Q6H PRN IV ALLERGIC REACTION Last administered on 05/02/16 02:53; Admin Dose 25 MG; Start 04/30/16 at 12:10 Imipenem/ Cilastatin Sodium (Primaxin 500 Mg/ 100 ml (Pmx)) 100 ml @ 100 mls/ hr Q8 IVPB Last administered on 05/02/16 06:41; Admin Dose 100 MLS/HR; Start 04/30/16 at 22:00 Methylnaltrexone [place] 12 mg 12 mg Q48H SC Last administered on 05/02/16 09: 15; Admin Dose 12 MG; Start 05/02/16 at 09:00 Daptomycin/Sodium Chloride (Cubicin/NS) 100 ml @ 200 mls/hr Q24H IVPB Last administered on 05/01/16 18:38; Admin Dose 200 MLS/HR; Start 05/01/16 at 18:00 Octreotide Acetate (Sandostatin) 150 mcg TID SC ; Start 05/02/16 at 13:00 BLAKE BRUMFIELD May 02, 2016 13:38
[2016-05-02] MEDS: CLONIDINE 0.2 MG/24 HR PATCH TRANSDERM SCH (13:40)
[2016-05-02] MEDS: TPN 1,000 ML IV SCH (13:41)
[2016-05-02] MEDS: FAT EMULSION 20% 250 ML IV SCH (16:06)
[2016-05-02 18:06] VITALS: BP 136/82; PULSE 75
[2016-05-02] MEDS: DAPTOMYCIN 400 MG in SOD CHLORIDE 0.9% 100 ML IVPB SCH (18:08)
--- NOTE | 2016-05-02 18:26 | PN ---
Date/Time of Note Date/Time of Note DATE: 05/02/16 TIME: 18:22 Assessment/Plan VTE Prophylaxis VTE Prophylaxis Intervention: LMWH Lines/Catheters IV [facility] Central Line Urinary Cath still in place: Yes Assessment/Plan Chief Complaint/Hosp Course Ovarian cancer with recurrence would benefit from secondary CRS even though persistent disease because the problem is her chemo was delayed 3 months postop. Informed of need to start chemo nathan postop and will call [facility] Problems: Assessment/Plan A- doing reasonably well but suggestion of minimal ongoing small fistula P- Keep in NGT and NPO on TPN and maintain Sandostatin as fistula is healing. Presuming wound continues to look better and NGT out low will d/c tomorrow Subjective 24 Hr Interval Summary Free Text/Dictation S- Less pain and breaths easier with persistent but decreasing wound soilage O- Resp- clear CVS- NSR Abd- appropriate tenderness and incision adequately packed but suggestion of minimal enteric leakage thru distal incision reducing but drain clear Ext- NT less edema A- doing reasonably well but suggestion of minimal ongoing small fistula P- Keep in NGT and NPO on TPN and maintain Sandostatin as fistula is healing. Presuming wound continues to look better and NGT out low will d/c tomorrow Exam/Review of Systems Vital Signs Vitals Vital Signs Date Time Temp Pulse Resp B/P Pulse Ox O2 Delivery O2 Flow Rate FiO2 05/02/16 18:17 18 05/02/16 18:06 75 136/82 05/02/16 07:00 99.0 96 05/01/16 20:30 Room Air 05/01/16 06:10 2.0 Intake and Output 05/01/16 05/01/16 05/02/16 15:00 23:00 07:00 Intake Total 980 ml 1100 ml 420 ml Output Total 460 ml 790 ml 1070 ml Balance 520 ml 310 ml -650 ml Results Result Diagram: 05/01/1644105/01/162 Results 24 hrs Laboratory Tests Test 05/01/16 18:30 05/01/16 21:41 05/02/16 09:18 Creatine Kinase 32 Bedside Glucose 162 131 Medications Medications Current Medications Zolpidem Tartrate (Ambien) 5 mg HS PRN PO INSOMNIA Last administered on t 23:48; Admin Dose 5 MG; Start 04/01/16 at 22:00 Diphenhydramine HCl (Benadryl) 25 mg Q6H PRN PO ITCHING Last administered on 06:49; Admin Dose 25 MG; Start 04/02/16 at 07:00 Al Hydrox/Mg Hydrox/Simethicone (Mag-Al Plus) 30 ml Q6H PRN PO GASTROINTESTINAL UPSET Last administered on 04/06/16 19:40; Admin Dose 30 ML; Start 04/02/16 at 17:30 Clonidine HCl 1 patch 1 patch Q7D TRANSDERM Last administered on 05/02/16 13: 40; Admin Dose 1 PATCH; Start 04/04/16 at 13:15 Albumin Human (Alburx) 500 ml @ 250 mls/hr ONCE PRN IVPB U/O BELOW 30 ML/HR X 2 HR; Start 04/07/16 at 22:30 Pantoprazole (Protonix Iv) 40 mg DAILY@06 IV Last administered on 05/02/16 06: 41; Admin Dose 40 MG; Start 04/08/16 at 06:00 Hydralazine HCl 10 mg 10 mg Q4H PRN IV HTN Last administered on 04/25/16 00:51 ; Admin Dose 10 MG; Start 04/13/16 at 20:00 Ondansetron HCl/ Dextrose (Zofran Inj/D5W) 54 ml @ 108 mls/hr Q6H PRN IV NAUSEA AND/OR VOMITING Last administered on 04/29/16 10:42; Admin Dose 108 MLS/ HR; Start 04/15/16 at 12:30 Diagnostic Test (Pha) (Accucheck) 1 ea Q12 XX Last administered on 05/02/16 09 :15; Admin Dose 1 EA; Start 04/18/16 at 09:00 Lorazepam (Ativan) 1 mg Q6H PRN IV ANXIETY Last administered on 04/28/16 09:41 ; Admin Dose 1 MG; Start 04/21/16 at 18:11 Hydromorphone HCl 0.5MG DOSE 20... Q4PCA IV Last administered on 05/02/16 12: 03; Admin Dose 6 MG; Start 04/27/16 at 15:30 Acetaminophen (Ofirmev 1000mg/ 100ml Iv) 100 ml @ 400 mls/hr Q6H IVPB Last administered on 05/02/16 15:25; Admin Dose 400 MLS/HR; Start 04/27/16 at 16:00 Fentanyl 1 patch 1 patch Q72H TRANSDERM Last administered on 04/30/16 19:31; Admin Dose 1 PATCH; Start 04/27/16 at 17:00 Fat Emulsion Intravenous 250 ml @ 10.417 mls/ hr Q24H IV Last administered on 05/02/16 16:06; Admin Dose 10.417 MLS/HR; Start 04/27/16 at 18:00 Total Parenteral Nutrition (Tpn) 1,000 ml @ 70 mls/hr [id number] IV Last administered on 05/02/16 13:41; Admin Dose 70 MLS/HR; Start 04/27/16 at 18:00 Mupirocin (Bactroban) 1 applic BID TOP Last administered on 05/02/16 09:14; Admin Dose 1 APPLIC; Start 04/27/16 at 21:00 Metoclopramide HCl (Reglan) 10 mg Q6 IV Last administered on 05/02/16 17:59; Admin Dose 10 MG; Start 04/29/16 at 12:00 Hydromorphone HCl (Dilaudid) 0.5 mg Q2 PRN IV SEVERE PAIN LEVEL 7-10 Last administered on 05/02/16 17:59; Admin Dose 0.5 MG; Start 04/30/16 at 12:00 Diphenhydramine HCl 25 mg 25 mg Q6H PRN IV ALLERGIC REACTION Last administered on 05/02/16 02:53; Admin Dose 25 MG; Start 04/30/16 at 12:10 Imipenem/ Cilastatin Sodium (Primaxin 500 Mg/ 100 ml (Pmx)) 100 ml @ 100 mls/ hr Q8 IVPB Last administered on 05/02/16 13:37; Admin Dose 100 MLS/HR; Start 04/30/16 at 22:00 Methylnaltrexone [place] 12 mg 12 mg Q48H SC Last administered on 05/02/16 09: 15; Admin Dose 12 MG; Start 05/02/16 at 09:00 Daptomycin/Sodium Chloride (Cubicin/NS) 100 ml @ 200 mls/hr Q24H IVPB Last administered on 05/02/16 18:08; Admin Dose 200 MLS/HR; Start 05/01/16 at 18:00 Octreotide Acetate (Sandostatin) 150 mcg TID SC Last administered on 05/02/16t 13:47; Admin Dose 150 MCG; Start 05/02/16 at 14:30 ANDI WADDELL MD May 02, 2016 18:26
[2016-05-03] MEDS: METOCLOPRAMIDE 10 MG INJ IV SCH ×5 (00:24→23:22)
[2016-05-03] MEDS: HYDROmorphONE 0.2 MG/ML PCA IV SCH ×3 (00:33→20:50)
[2016-05-03] MEDS: TPN 1,000 ML IV SCH ×3 (03:36→20:25)
[2016-05-03] MEDS: ACETAMINOPHEN 1000MG/100ML IV 100 ML IVPB SCH ×4 (03:37→22:43)
[2016-05-03] MEDS: HYDROmorphONE 1 MG/ML SYG IV PRN ×4 (03:45→22:56)
[2016-05-03 03:57] VITALS: BP 147/72; RESP 18
[2016-05-03 05:01] LABS: ADD SCAN DIFF NO
[2016-05-03 05:10] LABS: HEMATOCRIT 33.8 % (37.0-47.0); HEMOGLOBIN 11.1 g/dl (12.0-16.0); MEAN CORPUSCULAR HEMOGLOBIN 29.6 pg (29.0-33.0); MEAN CORPUSCULAR HGB CONC 32.8 g/dl (32.0-37.0); MEAN CORPUSCULAR VOLUME 90.1 fl (82.0-101.0); MEAN PLATELET VOLUME 12.3 fl (7.4-10.4); PLATELET COUNT 102 10^3/UL (140-415); RED BLOOD COUNT 3.75 10^6/ul (4.20-5.40); RED CELL DISTRIBUTION WIDTH 16.1 % (11.5-14.5); WHITE BLOOD COUNT 6.5 10^3/ul (4.8-10.8)
[2016-05-03 05:12] LABS: POTASSIUM 3.9 mmol/L (3.5-5.1)
[2016-05-03 05:14] LABS: CREATININE 0.59 mg/dl (0.44-1.00)
[2016-05-03 05:15] LABS: CALCIUM 7.8 mg/dl (8.4-10.2)
[2016-05-03] MEDS: FUROSEMIDE 20 MG INJ IV SCH ×2 (05:27→17:04)
[2016-05-03] MEDS: IMIPENEM-CILAST 500MG IV (PMX) 100 ML IVPB SCH ×3 (05:28→21:40)
[2016-05-03] MEDS: PANTOPRAZOLE 40 MG INJ IV SCH (05:28)
[2016-05-03] MEDS: OCTREOTIDE 50 MCG INJ SC SCH ×2 (09:00→13:48)
[2016-05-03 09:32] VITALS: BP 143/88; RESP 20
[2016-05-03] MEDS: MUPIROCIN 2% 22 GM OINT TOP SCH ×2 (09:40→20:22)
[2016-05-03] MEDS: ONDANSETRON INJ 8 MG in DEXTROSE 5% 50 ML IV PRN (09:40)
[2016-05-03] MEDS: ACCU-CHEK XX SCH ×2 (09:41→20:29)
[2016-05-03 10:55] LABS: EOSINOPHILS # 0.3 10^3/ul (0.0-0.5); LYMPHOCYTES # 0.8 10^3/ul (0.8-2.9); MONOCYTE # 0.5 10^3/ul (0.3-0.9); NEUTROPHIL # 4.5 10^3/ul (1.6-7.5)
--- NOTE | 2016-05-03 12:15 | CONS ---
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 Will repeat on 05/10/2016 - continue imipenem (04/30/2016-) - will add caspofungin for empiric antifungal treatment. Pt is immunocompromised and needs broad coverage for intra-abdominal and GI shreya - repeat imaging prior to cessation of antibiotics, possibly in two weeks management d/w Pt, her family member and RN Problems: Consultation Date/Type/Reason Admit Date/Time Apr 02, 2016 at 10:07 Initial Consult Date 05/01/16 Type of Consultation: id Referring Provider: BRIAN ZAZUETA MD 24 HR Interval Summary Constitutional: other (weak) Detailed Summary Eyes: no complaints ENT: no complaints Respiratory: no complaints Cardiovascular: no complaints Gastrointestinal: pain Genitourinary: other (FC) Musculoskeletal: no complaints Skin: no complaints Exam/Review of Systems Vital Signs Vitals Vital Signs Date Time Temp Pulse Resp B/P Pulse Ox O2 Delivery O2 Flow Rate FiO2 05/03/16 09:32 98.6 83 20 143/88 96 05/02/16 21:15 Nasal Cannula 2.0 Intake and Output 05/02/16 05/02/16 05/03/16 15:00 23:00 07:00 Intake Total 2020 ml 330 ml 1365 ml Output Total 100 ml 1420 ml 2125 ml Balance 1920 ml -1090 ml -760 ml Exam Constitutional: frail Psych: nl mood/affect, no complaints Head: atraumatic, normocephalic Eyes: nl conjunctiva, nl lids ENMT: nl external ears & nose, nl nasal mucosa & septum Neck: supple Respiratory: clear to auscultation, normal air movement Cardiovascular: nl pulses, regular rate and rhythm Gastrointestinal: distended, other (midline scar with santos), soft, surgical scars, tender Musculoskeletal: nl extremities to inspection Extremities: normal pulses Neurological: lethargic Results Result Diagram: 05/03/16 0431 05/03/16 0431 Results 24 hrs Laboratory Tests Test 05/02/16 21:13 05/03/16 04:31 05/03/16 08:46 Bedside Glucose 132 139 White Blood Count 6.5 Red Blood Count 3.75 L Hemoglobin 11.1 L Hematocrit 33.8 L Mean Corpuscular Volume 90.1 Mean Corpuscular Hemoglobin 29.6 Mean Corpuscular Hemoglobin Concent 32.8 Red Cell Distribution Width 16.1 H Platelet Count 102 #L Mean Platelet Volume 12.3 H Neutrophils % 69.0 Band Neutrophils % 7.0 H Lymphocytes % 12.0 L Monocytes % 7.0 Eosinophils % 5.0 Neutrophils # 4.5 Lymphocytes # 0.8 Monocytes # 0.5 Eosinophils # 0.3 Differential Comment MANUAL DIFF Giant Platelets OCCASIONAL Sodium Level 130 L Potassium Level 3.9 Chloride Level 98 Carbon Dioxide Level 29 Anion Gap 7 L Blood Urea Nitrogen 22 H Creatinine 0.59 Glucose Level 130 Calcium Level 7.8 L Creatine Kinase 31 Medications Medications Current Medications Zolpidem Tartrate (Ambien) 5 mg HS PRN PO INSOMNIA Last administered on 23:48; Admin Dose 5 MG; Start 04/01/16 at 22:00 Diphenhydramine HCl (Benadryl) 25 mg Q6H PRN PO ITCHING Last administered on 06:49; Admin Dose 25 MG; Start 04/02/16 at 07:00 Al Hydrox/Mg Hydrox/Simethicone (Mag-Al Plus) 30 ml Q6H PRN PO GASTROINTESTINAL UPSET Last administered on 04/06/16 19:40; Admin Dose 30 ML; Start 04/02/16 at 17:30 Clonidine HCl 1 patch 1 patch Q7D TRANSDERM Last administered on 05/02/16 13: 40; Admin Dose 1 PATCH; Start 04/04/16 at 13:15 Albumin Human (Alburx) 500 ml @ 250 mls/hr ONCE PRN IVPB U/O BELOW 30 ML/HR X 2 HR; Start 04/07/16 at 22:30 Pantoprazole (Protonix Iv) 40 mg DAILY@06 IV Last administered on 05/03/16 05: 28; Admin Dose 40 MG; Start 04/08/16 at 06:00 Hydralazine HCl 10 mg 10 mg Q4H PRN IV HTN Last administered on 04/25/16 00:51 ; Admin Dose 10 MG; Start 04/13/16 at 20:00 Ondansetron HCl/ Dextrose (Zofran Inj/D5W) 54 ml @ 108 mls/hr Q6H PRN IV NAUSEA AND/OR VOMITING Last administered on 05/03/16 09:40; Admin Dose 108 MLS/ HR; Start 04/15/16 at 12:30 Diagnostic Test (Pha) (Accucheck) 1 ea Q12 XX Last administered on 05/03/16 09 :41; Admin Dose 1 EA; Start 04/18/16 at 09:00 Lorazepam (Ativan) 1 mg Q6H PRN IV ANXIETY Last administered on 04/28/16 09:41 ; Admin Dose 1 MG; Start 04/21/16 at 18:11 Hydromorphone HCl 0.5MG DOSE 20... Q4PCA IV Last administered on 05/03/16 09: 40; Admin Dose 6 MG; Start 04/27/16 at 15:30 Acetaminophen (Ofirmev 1000mg/ 100ml Iv) 100 ml @ 400 mls/hr Q6H IVPB Last administered on 05/03/16 11:43; Admin Dose 400 MLS/HR; Start 04/27/16 at 16:00 Fentanyl 1 patch 1 patch Q72H TRANSDERM Last administered on 04/30/16 19:31; Admin Dose 1 PATCH; Start 04/27/16 at 17:00 Fat Emulsion Intravenous 250 ml @ 10.417 mls/ hr Q24H IV Last administered on 05/02/16 16:06; Admin Dose 10.417 MLS/HR; Start 04/27/16 at 18:00 Total Parenteral Nutrition (Tpn) 1,000 ml @ 70 mls/hr [id number] IV Last administered on 05/03/16 03:36; Admin Dose 70 MLS/HR; Start 04/27/16 at 18:00 Mupirocin (Bactroban) 1 applic BID TOP Last administered on 05/03/16 09:40; Admin Dose 1 APPLIC; Start 04/27/16 at 21:00 Metoclopramide HCl (Reglan) 10 mg Q6 IV Last administered on 05/03/16 11:43; Admin Dose 10 MG; Start 04/29/16 at 12:00 Hydromorphone HCl (Dilaudid) 0.5 mg Q2 PRN IV SEVERE PAIN LEVEL 7-10 Last administered on 05/03/16 11:43; Admin Dose 0.5 MG; Start 04/30/16 at 12:00 Diphenhydramine HCl 25 mg 25 mg Q6H PRN IV ALLERGIC REACTION Last administered on 05/02/16 02:53; Admin Dose 25 MG; Start 04/30/16 at 12:10 Imipenem/ Cilastatin Sodium (Primaxin 500 Mg/ 100 ml (Pmx)) 100 ml @ 100 mls/ hr Q8 IVPB Last administered on 05/03/16 05:28; Admin Dose 100 MLS/HR; Start 04/30/16 at 22:00 Methylnaltrexone [place] 12 mg 12 mg Q48H SC Last administered on 05/02/16 09: 15; Admin Dose 12 MG; Start 05/02/16 at 09:00 Daptomycin/Sodium Chloride (Cubicin/NS) 100 ml @ 200 mls/hr Q24H IVPB Last administered on 05/02/16 18:08; Admin Dose 200 MLS/HR; Start 05/01/16 at 18:00 Octreotide Acetate (Sandostatin) 150 mcg TID SC Last administered on 05/02/16 21:16; Admin Dose 150 MCG; Start 05/02/16 at 14:30 AMERICA STARR M.D. May 03, 2016 12:15
--- NOTE | 2016-05-03 13:07 | PN ---
Date/Time of Note Date/Time of Note DATE: 05/03/16 TIME: 13:05 Assessment/Plan VTE Prophylaxis VTE Prophylaxis Intervention: anti-embolic stocking Lines/Catheters IV Catheter Type (from Nrsg): Peripheral IV Central line still needed: Yes Urinary Cath still in place: Yes Reason Cath still needed: urinary retention Assessment/Plan Assessment/Plan 61-year-old female with stage IIIB ovarian cancer s/p surgery by Dr. Johnston in May 2015 and 6 cycles of carbo/taxol with persistently elevated CA125, recently admitted to outside hospital with CT concerning for persistent disease. Pt is now s/p optimal CRS for recurrent disease on 04/08. She was left with < 5mm of residual disease. Latest CT done is consistent with bowel leak. Pt was taken again to OR on 04/24 where she underwent a small bowel resection and anastomosis as well as incisional hernia repair. Intraoperatively pt was noted to have progressive disease and a fistula. - post op care per Dr. Dave. post transfusion CBC reveals HG> 11. Will defer transfusion requirement to Dr. Johnston in this post operative setting - Continue Sandostatin as the drainage appears to be less with this. - Given report by nurses of possible allergic reaction to Vanco, abx on per ID( currently imipenem/dapto) based on sensitivities of organisms on C&S per Dr. Johnston - Agree with keeping NPO with TPN as patient has a known fistula. Management per GynOnc. - LE Doppler do not reveal evidence of DVT - continue Zofran to 8mg IV q 6 prn nausea. nausea now under control - plan to start adjuvant chemotherapy in house when cleared by [facility] onc. d/w family present Subjective 24 Hr Interval Summary Free Text/Dictation more awake and comfortable today. Exam/Review of Systems Vital Signs Vitals Vital Signs Date Time Temp Pulse Resp B/P Pulse Ox O2 Delivery O2 Flow Rate FiO2 05/03/16 09:32 98.6 83 20 143/88 96 05/02/16 21:15 Nasal Cannula 2.0 Intake and Output 05/02/16 05/02/16 05/03/16 15:00 23:00 07:00 Intake Total 2020 ml 330 ml 1365 ml Output Total 100 ml 1420 ml 2125 ml Balance 1920 ml -1090 ml -760 ml Exam Constitutional: oriented Psych: anxiety Eyes: nl sclera Neck: supple Respiratory: normal air movement Results Result Diagram: 05/03/16 0431 05/03/16 0431 Results 24 hrs Laboratory Tests Test 05/02/16 21:13 05/03/16 04:31 05/03/16 08:46 Bedside Glucose 132 139 White Blood Count 6.5 Red Blood Count 3.75 L Hemoglobin 11.1 L Hematocrit 33.8 L Mean Corpuscular Volume 90.1 Mean Corpuscular Hemoglobin 29.6 Mean Corpuscular Hemoglobin Concent 32.8 Red Cell Distribution Width 16.1 H Platelet Count 102 #L Mean Platelet Volume 12.3 H Neutrophils % 69.0 Band Neutrophils % 7.0 H Lymphocytes % 12.0 L Monocytes % 7.0 Eosinophils % 5.0 Neutrophils # 4.5 Lymphocytes # 0.8 Monocytes # 0.5 Eosinophils # 0.3 Differential Comment MANUAL DIFF Giant Platelets OCCASIONAL Sodium Level 130 L Potassium Level 3.9 Chloride Level 98 Carbon Dioxide Level 29 Anion Gap 7 L Blood Urea Nitrogen 22 H Creatinine 0.59 Glucose Level 130 Calcium Level 7.8 L Creatine Kinase 31 Medications Medications Current Medications Zolpidem Tartrate (Ambien) 5 mg HS PRN PO INSOMNIA Last administered on 23:48; Admin Dose 5 MG; Start 04/01/16 at 22:00 Diphenhydramine HCl (Benadryl) 25 mg Q6H PRN PO ITCHING Last administered on 06:49; Admin Dose 25 MG; Start 04/02/16 at 07:00 Al Hydrox/Mg Hydrox/Simethicone (Mag-Al Plus) 30 ml Q6H PRN PO GASTROINTESTINAL UPSET Last administered on 04/06/16 19:40; Admin Dose 30 ML; Start 04/02/16 at 17:30 Clonidine HCl 1 patch 1 patch Q7D TRANSDERM Last administered on 05/02/16 13: 40; Admin Dose 1 PATCH; Start 04/04/16 at 13:15 Albumin Human (Alburx) 500 ml @ 250 mls/hr ONCE PRN IVPB U/O BELOW 30 ML/HR X 2 HR; Start 04/07/16 at 22:30 Pantoprazole (Protonix Iv) 40 mg DAILY@06 IV Last administered on 05/03/16 05: 28; Admin Dose 40 MG; Start 04/08/16 at 06:00 Hydralazine HCl 10 mg 10 mg Q4H PRN IV HTN Last administered on 04/25/16 00:51 ; Admin Dose 10 MG; Start 04/13/16 at 20:00 Ondansetron HCl/ Dextrose (Zofran Inj/D5W) 54 ml @ 108 mls/hr Q6H PRN IV NAUSEA AND/OR VOMITING Last administered on 05/03/16 09:40; Admin Dose 108 MLS/ HR; Start 04/15/16 at 12:30 Diagnostic Test (Pha) (Accucheck) 1 ea Q12 XX Last administered on 05/03/16 09 :41; Admin Dose 1 EA; Start 04/18/16 at 09:00 Lorazepam (Ativan) 1 mg Q6H PRN IV ANXIETY Last administered on 04/28/16 09:41 ; Admin Dose 1 MG; Start 04/21/16 at 18:11 Hydromorphone HCl 0.5MG DOSE 20... Q4PCA IV Last administered on 05/03/16 09: 40; Admin Dose 6 MG; Start 04/27/16 at 15:30 Acetaminophen (Ofirmev 1000mg/ 100ml Iv) 100 ml @ 400 mls/hr Q6H IVPB Last administered on 05/03/16 11:43; Admin Dose 400 MLS/HR; Start 04/27/16 at 16:00 Fentanyl 1 patch 1 patch Q72H TRANSDERM Last administered on 04/30/16 19:31; Admin Dose 1 PATCH; Start 04/27/16 at 17:00 Fat Emulsion Intravenous 250 ml @ 10.417 mls/ hr Q24H IV Last administered on 05/02/16 16:06; Admin Dose 10.417 MLS/HR; Start 04/27/16 at 18:00 Total Parenteral Nutrition (Tpn) 1,000 ml @ 70 mls/hr [id number] IV Last administered on 05/03/16 03:36; Admin Dose 70 MLS/HR; Start 04/27/16 at 18:00 Mupirocin (Bactroban) 1 applic BID TOP Last administered on 05/03/16 09:40; Admin Dose 1 APPLIC; Start 04/27/16 at 21:00 Metoclopramide HCl (Reglan) 10 mg Q6 IV Last administered on 05/03/16 11:43; Admin Dose 10 MG; Start 04/29/16 at 12:00 Hydromorphone HCl (Dilaudid) 0.5 mg Q2 PRN IV SEVERE PAIN LEVEL 7-10 Last administered on 05/03/16 11:43; Admin Dose 0.5 MG; Start 04/30/16 at 12:00 Diphenhydramine HCl 25 mg 25 mg Q6H PRN IV ALLERGIC REACTION Last administered on 05/02/16 02:53; Admin Dose 25 MG; Start 04/30/16 at 12:10 Imipenem/ Cilastatin Sodium (Primaxin 500 Mg/ 100 ml (Pmx)) 100 ml @ 100 mls/ hr Q8 IVPB Last administered on 05/03/16 05:28; Admin Dose 100 MLS/HR; Start 04/30/16 at 22:00 Methylnaltrexone [place] 12 mg 12 mg Q48H SC Last administered on 05/02/16 09: 15; Admin Dose 12 MG; Start 05/02/16 at 09:00 Daptomycin/Sodium Chloride (Cubicin/NS) 100 ml @ 200 mls/hr Q24H IVPB Last administered on 05/02/16 18:08; Admin Dose 200 MLS/HR; Start 05/01/16 at 18:00 Octreotide Acetate 150 mcg 150 mcg TID SC Last administered on 05/02/16 21:16 ; Admin Dose 150 MCG; Start 05/02/16 at 14:30 Caspofungin 70 mg/ Sodium Chloride 250 ml @ 250 mls/hr ONCE ONCE IVPB ; Start 05/03/16 at 14:00; Stop 05/03/16 at 14:59 Caspofungin/ Sodium Chloride (Cancidas/NS) 250 ml @ 250 mls/hr Q24H IVPB ; Start 05/04/16 at 14:00 CLAIRE AC MD May 03, 2016 13:07
[2016-05-03] MEDS ORDERED: CASPOFUNGIN 70 MG in SOD CHLORIDE 0.9% 250 ML IVPB ONE (14:00)
--- NOTE | 2016-05-03 15:56 | PN ---
Date/Time of Note Date/Time of Note DATE: 05/03/16 TIME: 15:54 Assessment/Plan Lines/Catheters IV Catheter Type (from Nrsg): Peripheral IV Urinary Cath still in place: Yes Subjective 24 Hr Interval Summary Free Text/Dictation 1515-NAD, resting, feels better, pain n control. daughter at bed side- all Qs ANSWERED. dw STAFF Eyes: no complaints ENT: no complaints Respiratory: no complaints Cardiovascular: no complaints Gastrointestinal: pain Genitourinary: no complaints Musculoskeletal: no complaints Skin: no complaints Neurologic: no complaints Endocrine: no complaints Lymphatic: no complaints Psychological: no complaints Immunologic: no complaints Exam/Review of Systems Vital Signs Vitals Vital Signs Date Time Temp Pulse Resp B/P Pulse Ox O2 Delivery O2 Flow Rate FiO2 05/03/16 09:32 98.6 83 20 143/88 96 05/03/16 08:00 Nasal Cannula 2.0 Intake and Output 05/02/16 05/02/16 05/03/16 15:00 23:00 07:00 Intake Total 2020 ml 330 ml 1365 ml Output Total 100 ml 1420 ml 2125 ml Balance 1920 ml -1090 ml -760 ml Exam Constitutional: alert, oriented Psych: nl mood/affect Head: atraumatic Eyes: EOMI ENMT: nl external ears & nose Neck: non-tender Respiratory: clear to auscultation Cardiovascular: nl pulses Gastrointestinal: soft, tender Musculoskeletal: nl extremities to inspection Extremities: normal pulses Neurological: nl mental status, nl speech Skin: other Results Result Diagram: 05/03/16 0431 05/03/16 0431 Results 24 hrs Laboratory Tests Test 05/02/16 21:13 05/03/16 04:31 05/03/16 08:46 Bedside Glucose 132 139 White Blood Count 6.5 Red Blood Count 3.75 L Hemoglobin 11.1 L Hematocrit 33.8 L Mean Corpuscular Volume 90.1 Mean Corpuscular Hemoglobin 29.6 Mean Corpuscular Hemoglobin Concent 32.8 Red Cell Distribution Width 16.1 H Platelet Count 102 #L Mean Platelet Volume 12.3 H Neutrophils % 69.0 Band Neutrophils % 7.0 H Lymphocytes % 12.0 L Monocytes % 7.0 Eosinophils % 5.0 Neutrophils # 4.5 Lymphocytes # 0.8 Monocytes # 0.5 Eosinophils # 0.3 Differential Comment MANUAL DIFF Giant Platelets OCCASIONAL Sodium Level 130 L Potassium Level 3.9 Chloride Level 98 Carbon Dioxide Level 29 Anion Gap 7 L Blood Urea Nitrogen 22 H Creatinine 0.59 Glucose Level 130 Calcium Level 7.8 L Creatine Kinase 31 Medications Medications Current Medications Zolpidem Tartrate (Ambien) 5 mg HS PRN PO INSOMNIA Last administered on 23:48; Admin Dose 5 MG; Start 04/01/16 at 22:00 Diphenhydramine HCl (Benadryl) 25 mg Q6H PRN PO ITCHING Last administered on 06:49; Admin Dose 25 MG; Start 04/02/16 at 07:00 Al Hydrox/Mg Hydrox/Simethicone (Mag-Al Plus) 30 ml Q6H PRN PO GASTROINTESTINAL UPSET Last administered on 04/06/16 19:40; Admin Dose 30 ML; Start 04/02/16 at 17:30 Clonidine HCl 1 patch 1 patch Q7D TRANSDERM Last administered on 05/02/16 13: 40; Admin Dose 1 PATCH; Start 04/04/16 at 13:15 Albumin Human (Alburx) 500 ml @ 250 mls/hr ONCE PRN IVPB U/O BELOW 30 ML/HR X 2 HR; Start 04/07/16 at 22:30 Pantoprazole (Protonix Iv) 40 mg DAILY@06 IV Last administered on 05/03/16 05: 28; Admin Dose 40 MG; Start 04/08/16 at 06:00 Hydralazine HCl 10 mg 10 mg Q4H PRN IV HTN Last administered on 04/25/16 00:51 ; Admin Dose 10 MG; Start 04/13/16 at 20:00 Ondansetron HCl/ Dextrose (Zofran Inj/D5W) 54 ml @ 108 mls/hr Q6H PRN IV NAUSEA AND/OR VOMITING Last administered on 05/03/16 09:40; Admin Dose 108 MLS/ HR; Start 04/15/16 at 12:30 Diagnostic Test (Pha) (Accucheck) 1 ea Q12 XX Last administered on 05/03/16 09 :41; Admin Dose 1 EA; Start 04/18/16 at 09:00 Lorazepam (Ativan) 1 mg Q6H PRN IV ANXIETY Last administered on 04/28/16 09:41 ; Admin Dose 1 MG; Start 04/21/16 at 18:11 Hydromorphone HCl 0.5MG DOSE 20... Q4PCA IV Last administered on 05/03/16 09: 40; Admin Dose 6 MG; Start 04/27/16 at 15:30 Acetaminophen (Ofirmev 1000mg/ 100ml Iv) 100 ml @ 400 mls/hr Q6H IVPB Last administered on 05/03/16 11:43; Admin Dose 400 MLS/HR; Start 04/27/16 at 16:00 Fentanyl 1 patch 1 patch Q72H TRANSDERM Last administered on 04/30/16 19:31; Admin Dose 1 PATCH; Start 04/27/16 at 17:00 Fat Emulsion Intravenous 250 ml @ 10.417 mls/ hr Q24H IV Last administered on 05/02/16 16:06; Admin Dose 10.417 MLS/HR; Start 04/27/16 at 18:00 Total Parenteral Nutrition (Tpn) 1,000 ml @ 70 mls/hr [id number] IV Last administered on 05/03/16 03:36; Admin Dose 70 MLS/HR; Start 04/27/16 at 18:00 Mupirocin (Bactroban) 1 applic BID TOP Last administered on 05/03/16 09:40; Admin Dose 1 APPLIC; Start 04/27/16 at 21:00 Metoclopramide HCl (Reglan) 10 mg Q6 IV Last administered on 05/03/16 11:43; Admin Dose 10 MG; Start 04/29/16 at 12:00 Hydromorphone HCl (Dilaudid) 0.5 mg Q2 PRN IV SEVERE PAIN LEVEL 7-10 Last administered on 05/03/16 11:43; Admin Dose 0.5 MG; Start 04/30/16 at 12:00 Diphenhydramine HCl 25 mg 25 mg Q6H PRN IV ALLERGIC REACTION Last administered on 05/02/16 02:53; Admin Dose 25 MG; Start 04/30/16 at 12:10 Imipenem/ Cilastatin Sodium (Primaxin 500 Mg/ 100 ml (Pmx)) 100 ml @ 100 mls/ hr Q8 IVPB Last administered on 05/03/16 13:48; Admin Dose 100 MLS/HR; Start 04/30/16 at 22:00 Methylnaltrexone [place] 12 mg 12 mg Q48H SC Last administered on 05/02/16 09: 15; Admin Dose 12 MG; Start 05/02/16 at 09:00 Daptomycin/Sodium Chloride (Cubicin/NS) 100 ml @ 200 mls/hr Q24H IVPB Last administered on 05/02/16 18:08; Admin Dose 200 MLS/HR; Start 05/01/16 at 18:00 Octreotide Acetate 150 mcg 150 mcg TID SC Last administered on 05/03/16 13:48 ; Admin Dose 150 MCG; Start 05/02/16 at 14:30 Caspofungin/ Sodium Chloride (Cancidas/NS) 250 ml @ 250 mls/hr Q24H IVPB ; Start 05/04/16 at 14:00 BLAKE BRUMFIELD May 03, 2016 15:55
--- NOTE | 2016-05-03 16:12 | PN ---
Date/Time of Note Date/Time of Note DATE: 05/03/16 TIME: 16:08 Assessment/Plan VTE Prophylaxis VTE Prophylaxis Intervention: SCD's Lines/Catheters IV [facility] Peripheral IV Urinary Cath still in place: Yes Assessment/Plan Chief Complaint/Hosp Course Ovarian cancer with recurrence would benefit from secondary CRS even though persistent disease because the problem is her chemo was delayed 3 months postop. Informed of need to start chemo nathan postop and will call [facility] Problems: Assessment/Plan A- suggestion of increasing ongoing fistula P- Keep in NGT and NPO on TPN and maintain Sandostatin. Keep NGT as output increased. Discussed prognosis and all options with family. Subjective 24 Hr Interval Summary Free Text/Dictation S- Some increase in pain and no flatus O- Resp- clear CVS- NSR Abd- appropriate tenderness and incision inadequately packed with increase in distal drainage Ext- NT less edema A- suggestion of increasing ongoing fistula P- Keep in NGT and NPO on TPN and maintain Sandostatin. Keep NGT as output increased. Discussed prognosis and all options with family. Exam/Review of Systems Vital Signs Vitals Vital Signs Date Time Temp Pulse Resp B/P Pulse Ox O2 Delivery O2 Flow Rate FiO2 05/03/16 09:32 98.6 83 20 143/88 96 05/03/16 08:00 Nasal Cannula 2.0 Intake and Output 05/02/16 05/02/16 05/03/16 15:00 23:00 07:00 Intake Total 2020 ml 330 ml 1365 ml Output Total 100 ml 1420 ml 2125 ml Balance 1920 ml -1090 ml -760 ml Results Result Diagram: 05/03/16 0431 05/03/16 0431 Results 24 hrs Laboratory Tests Test 05/02/16 21:13 05/03/16 04:31 05/03/16 08:46 Bedside Glucose 132 139 White Blood Count 6.5 Red Blood Count 3.75 L Hemoglobin 11.1 L Hematocrit 33.8 L Mean Corpuscular Volume 90.1 Mean Corpuscular Hemoglobin 29.6 Mean Corpuscular Hemoglobin Concent 32.8 Red Cell Distribution Width 16.1 H Platelet Count 102 #L Mean Platelet Volume 12.3 H Neutrophils % 69.0 Band Neutrophils % 7.0 H Lymphocytes % 12.0 L Monocytes % 7.0 Eosinophils % 5.0 Neutrophils # 4.5 Lymphocytes # 0.8 Monocytes # 0.5 Eosinophils # 0.3 Differential Comment MANUAL DIFF Giant Platelets OCCASIONAL Sodium Level 130 L Potassium Level 3.9 Chloride Level 98 Carbon Dioxide Level 29 Anion Gap 7 L Blood Urea Nitrogen 22 H Creatinine 0.59 Glucose Level 130 Calcium Level 7.8 L Creatine Kinase 31 Medications Medications Current Medications Zolpidem Tartrate (Ambien) 5 mg HS PRN PO INSOMNIA Last administered on 23:48; Admin Dose 5 MG; Start 04/01/16 at 22:00 Diphenhydramine HCl (Benadryl) 25 mg Q6H PRN PO ITCHING Last administered on 06:49; Admin Dose 25 MG; Start 04/02/16 at 07:00 Al Hydrox/Mg Hydrox/Simethicone (Mag-Al Plus) 30 ml Q6H PRN PO GASTROINTESTINAL UPSET Last administered on 04/06/16 19:40; Admin Dose 30 ML; Start 04/02/16 at 17:30 Clonidine HCl 1 patch 1 patch Q7D TRANSDERM Last administered on 05/02/16 13: 40; Admin Dose 1 PATCH; Start 04/04/16 at 13:15 Albumin Human (Alburx) 500 ml @ 250 mls/hr ONCE PRN IVPB U/O BELOW 30 ML/HR X 2 HR; Start 04/07/16 at 22:30 Pantoprazole (Protonix Iv) 40 mg DAILY@06 IV Last administered on 05/03/16 05: 28; Admin Dose 40 MG; Start 04/08/16 at 06:00 Hydralazine HCl 10 mg 10 mg Q4H PRN IV HTN Last administered on 04/25/16 00:51 ; Admin Dose 10 MG; Start 04/13/16 at 20:00 Ondansetron HCl/ Dextrose (Zofran Inj/D5W) 54 ml @ 108 mls/hr Q6H PRN IV NAUSEA AND/OR VOMITING Last administered on 05/03/16 09:40; Admin Dose 108 MLS/ HR; Start 04/15/16 at 12:30 Diagnostic Test (Pha) (Accucheck) 1 ea Q12 XX Last administered on 05/03/16 09 :41; Admin Dose 1 EA; Start 04/18/16 at 09:00 Lorazepam (Ativan) 1 mg Q6H PRN IV ANXIETY Last administered on 04/28/16 09:41 ; Admin Dose 1 MG; Start 04/21/16 at 18:11 Hydromorphone HCl 0.5MG DOSE 20... Q4PCA IV Last administered on 05/03/16 09: 40; Admin Dose 6 MG; Start 04/27/16 at 15:30 Acetaminophen (Ofirmev 1000mg/ 100ml Iv) 100 ml @ 400 mls/hr Q6H IVPB Last administered on 05/03/16 11:43; Admin Dose 400 MLS/HR; Start 04/27/16 at 16:00 Fentanyl 1 patch 1 patch Q72H TRANSDERM Last administered on 04/30/16 19:31; Admin Dose 1 PATCH; Start 04/27/16 at 17:00 Fat Emulsion Intravenous 250 ml @ 10.417 mls/ hr Q24H IV Last administered on 05/02/16 16:06; Admin Dose 10.417 MLS/HR; Start 04/27/16 at 18:00 Total Parenteral Nutrition (Tpn) 1,000 ml @ 70 mls/hr [id number] IV Last administered on 05/03/16 03:36; Admin Dose 70 MLS/HR; Start 04/27/16 at 18:00 Mupirocin (Bactroban) 1 applic BID TOP Last administered on 05/03/16 09:40; Admin Dose 1 APPLIC; Start 04/27/16 at 21:00 Metoclopramide HCl (Reglan) 10 mg Q6 IV Last administered on 05/03/16 11:43; Admin Dose 10 MG; Start 04/29/16 at 12:00 Hydromorphone HCl (Dilaudid) 0.5 mg Q2 PRN IV SEVERE PAIN LEVEL 7-10 Last administered on 05/03/16 15:57; Admin Dose 0.5 MG; Start 04/30/16 at 12:00 Diphenhydramine HCl 25 mg 25 mg Q6H PRN IV ALLERGIC REACTION Last administered on 05/02/16 02:53; Admin Dose 25 MG; Start 04/30/16 at 12:10 Imipenem/ Cilastatin Sodium (Primaxin 500 Mg/ 100 ml (Pmx)) 100 ml @ 100 mls/ hr Q8 IVPB Last administered on 05/03/16 13:48; Admin Dose 100 MLS/HR; Start 04/30/16 at 22:00 Methylnaltrexone [place] 12 mg 12 mg Q48H SC Last administered on 05/02/16 09: 15; Admin Dose 12 MG; Start 05/02/16 at 09:00 Daptomycin/Sodium Chloride (Cubicin/NS) 100 ml @ 200 mls/hr Q24H IVPB Last administered on 05/02/16 18:08; Admin Dose 200 MLS/HR; Start 05/01/16 at 18:00 Octreotide Acetate 150 mcg 150 mcg TID SC Last administered on 05/03/16 13:48 ; Admin Dose 150 MCG; Start 05/02/16 at 14:30 Caspofungin/ Sodium Chloride (Cancidas/NS) 250 ml @ 250 mls/hr Q24H IVPB ; Start 05/04/16 at 14:00 ANDI WADDELL MD May 03, 2016 16:12
[2016-05-03] MEDS: FAT EMULSION 20% 250 ML IV SCH (16:30)
[2016-05-03] MEDS: LORAZEPAM 2 MG INJ IV PRN (16:30)
[2016-05-03] MEDS: DIPHENHYDRAMINE 50 MG INJ IV PRN (17:27)
[2016-05-03] MEDS: DAPTOMYCIN 400 MG in SOD CHLORIDE 0.9% 100 ML IVPB SCH (18:42)
[2016-05-03] MEDS: FENTAnyl PATCH 12 MCG/HR TRANSDERM SCH (18:54)
[2016-05-03] MEDS: OCTREOTIDE 100 MCG INJ SC SCH (20:24)
[2016-05-03 20:37] VITALS: BP 147/90; RESP 18
[2016-05-04] MEDS: HYDROmorphONE 1 MG/ML SYG IV PRN ×5 (03:56→23:26)
[2016-05-04] MEDS: HYDROmorphONE 0.2 MG/ML PCA IV SCH ×2 (04:17→12:17)
[2016-05-04] MEDS: ACETAMINOPHEN 1000MG/100ML IV 100 ML IVPB SCH ×4 (04:21→22:41)
[2016-05-04] MEDS: DIPHENHYDRAMINE 50 MG INJ IV PRN (05:30)
[2016-05-04] MEDS: METOCLOPRAMIDE 10 MG INJ IV SCH ×4 (05:31→23:28)
[2016-05-04 05:32] LABS: ADD SCAN DIFF NO
[2016-05-04] MEDS: PANTOPRAZOLE 40 MG INJ IV SCH (05:35)
[2016-05-04] MEDS: IMIPENEM-CILAST 500MG IV (PMX) 100 ML IVPB SCH ×3 (05:36→21:42)
[2016-05-04] MEDS: FUROSEMIDE 20 MG INJ IV SCH ×2 (05:36→18:01)
[2016-05-04 05:46] LABS: BASOPHILS % 0.1 % (0.0-2.0); EOSINOPHILS # 0.1 10^3/ul (0.0-0.5); HEMATOCRIT 34.9 % (37.0-47.0); HEMOGLOBIN 11.4 g/dl (12.0-16.0); LYMPHOCYTES # 1.2 10^3/ul (0.8-2.9); LYMPHOCYTES % 13.1 % (15.0-51.0); MEAN CORPUSCULAR HEMOGLOBIN 29.3 pg (29.0-33.0); MEAN CORPUSCULAR HGB CONC 32.7 g/dl (32.0-37.0); MEAN CORPUSCULAR VOLUME 89.7 fl (82.0-101.0); MEAN PLATELET VOLUME 12.6 fl (7.4-10.4); MONOCYTE # 0.5 10^3/ul (0.3-0.9); NEUTROPHILS % 78.9 % (39.0-77.0); PLATELET COUNT 117 10^3/UL (140-415); RED BLOOD COUNT 3.89 10^6/ul (4.20-5.40); RED CELL DISTRIBUTION WIDTH 16.2 % (11.5-14.5); WHITE BLOOD COUNT 8.8 10^3/ul (4.8-10.8)
[2016-05-04 06:15] LABS: PHOSPHORUS 3.1 mg/dl (2.5-4.9)
[2016-05-04 06:16] LABS: MAGNESIUM 1.7 mg/dl (1.7-2.5)
[2016-05-04 06:29] LABS: POTASSIUM 3.7 mmol/L (3.5-5.1)
[2016-05-04 06:31] LABS: CREATININE 0.61 mg/dl (0.44-1.00)
[2016-05-04 08:05] VITALS: BP 155/74; RESP 19
[2016-05-04] MEDS: ACCU-CHEK XX SCH ×2 (08:31→20:41)
[2016-05-04] MEDS: METHYLNALTREXONE 12 MG/0.6 ML VIAL SC SCH (08:32)
[2016-05-04] MEDS: OCTREOTIDE 100 MCG INJ SC SCH ×3 (08:33→20:35)
[2016-05-04] MEDS: MUPIROCIN 2% 22 GM OINT TOP SCH ×2 (08:34→20:35)
[2016-05-04] MEDS: LORAZEPAM 2 MG INJ IV PRN (09:10)
[2016-05-04] MEDS: TPN 1,000 ML IV SCH (10:54)
--- NOTE | 2016-05-04 13:55 | CONS ---
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 Will repeat on 05/10/2016 - continue imipenem (04/30/2016-) - continue empiric caspofungin (05/03/2016-) - repeat imaging prior to cessation of antibiotics, possibly in two weeks management d/w Pt's Problems: Consultation Date/Type/Reason Admit Date/Time Apr 02, 2016 at 10:07 Initial Consult Date 05/01/16 Type of Consultation: ID Referring Provider: BRIAN ZAZUETA MD 24 HR Interval Summary Subjective hx not possible: pt non-verbal Exam/Review of Systems Vital Signs Vitals Vital Signs Date Time Temp Pulse Resp B/P Pulse Ox O2 Delivery O2 Flow Rate FiO2 05/04/16 12:00 18 05/04/16 08:05 97.8 87 155/74 97 05/04/16 05:38 3.0 05/03/16 19:50 Nasal Cannula Intake and Output 05/03/16 05/03/16 05/04/16 14:59 22:59 06:59 Intake Total 1765 ml 933 ml Output Total 1610 ml 1450 ml Balance 155 ml -517 ml Exam Constitutional: frail, non-verbal Psych: confusion Head: atraumatic, normocephalic Eyes: nl lids ENMT: nl external ears & nose, nl nasal mucosa & septum Respiratory: clear to auscultation, normal air movement Cardiovascular: nl pulses, regular rate and rhythm Gastrointestinal: other (mid-abdominal pain), soft, surgical scars, No distended Musculoskeletal: nl extremities to inspection Extremities: edema Neurological: lethargic Results Result Diagram: 05/04/1642805/04/16428 Results 24 hrs Laboratory Tests Test 05/03/16 20:26 05/04/16 04:24 05/04/16 04:29 05/04/16 08:30 Bedside Glucose 113 119 Phosphorus Level 3.1 Magnesium Level 1.7 White Blood Count 8.8 # Red Blood Count 3.89 L Hemoglobin 11.4 L Hematocrit 34.9 L Mean Corpuscular Volume 89.7 Mean Corpuscular Hemoglobin 29.3 Mean Corpuscular Hemoglobin Concent 32.7 Red Cell Distribution Width 16.2 H Platelet Count 117 L Mean Platelet Volume 12.6 H Neutrophils % 78.9 H Lymphocytes % 13.1 L Monocytes % 6.0 Eosinophils % 1.0 Basophils % 0.1 Nucleated Red Blood Cells % 0.0 Neutrophils # 7.0 Lymphocytes # 1.2 Monocytes # 0.5 Eosinophils # 0.1 Basophils # 0.0 Nucleated Red Blood Cells # 0.0 Sodium Level 129 L Potassium Level 3.7 Chloride Level 96 L Carbon Dioxide Level 28 Anion Gap 9 Blood Urea Nitrogen 20 Creatinine 0.61 Glucose Level 124 Calcium Level 8.0 L Medications Medications Current Medications Zolpidem Tartrate (Ambien) 5 mg HS PRN PO INSOMNIA Last administered on 23:48; Admin Dose 5 MG; Start 04/01/16 at 22:00 Diphenhydramine HCl (Benadryl) 25 mg Q6H PRN PO ITCHING Last administered on 06:49; Admin Dose 25 MG; Start 04/02/16 at 07:00 Al Hydrox/Mg Hydrox/Simethicone (Mag-Al Plus) 30 ml Q6H PRN PO GASTROINTESTINAL UPSET Last administered on 04/06/16 19:40; Admin Dose 30 ML; Start 04/02/16 at 17:30 Clonidine HCl 1 patch 1 patch Q7D TRANSDERM Last administered on 05/02/16 13: 40; Admin Dose 1 PATCH; Start 04/04/16 at 13:15 Albumin Human (Alburx) 500 ml @ 250 mls/hr ONCE PRN IVPB U/O BELOW 30 ML/HR X 2 HR; Start 04/07/16 at 22:30 Pantoprazole (Protonix Iv) 40 mg DAILY@06 IV Last administered on 05/04/16 05: 35; Admin Dose 40 MG; Start 04/08/16 at 06:00 Hydralazine HCl 10 mg 10 mg Q4H PRN IV HTN Last administered on 04/25/16 00:51 ; Admin Dose 10 MG; Start 04/13/16 at 20:00 Ondansetron HCl/ Dextrose (Zofran Inj/D5W) 54 ml @ 108 mls/hr Q6H PRN IV NAUSEA AND/OR VOMITING Last administered on 05/03/16 09:40; Admin Dose 108 MLS/ HR; Start 04/15/16 at 12:30 Diagnostic Test (Pha) (Accucheck) 1 ea Q12 XX Last administered on 05/03/16 20 :29; Admin Dose 1 EA; Start 04/18/16 at 09:00 Lorazepam (Ativan) 1 mg Q6H PRN IV ANXIETY Last administered on 05/04/16 09:10 ; Admin Dose 1 MG; Start 04/21/16 at 18:11 Hydromorphone HCl 0.5MG DOSE 20... Q4PCA IV Last administered on 05/04/16 12: 17; Admin Dose 6 MG; Start 04/27/16 at 15:30 Acetaminophen (Ofirmev 1000mg/ 100ml Iv) 100 ml @ 400 mls/hr Q6H IVPB Last administered on 05/04/16 09:13; Admin Dose 400 MLS/HR; Start 04/27/16 at 16:00 Fentanyl 1 patch 1 patch Q72H TRANSDERM Last administered on 05/03/16 18:54; Admin Dose 1 PATCH; Start 04/27/16 at 17:00 Fat Emulsion Intravenous 250 ml @ 10.417 mls/ hr Q24H IV Last administered on 05/03/16 16:30; Admin Dose 10.417 MLS/HR; Start 04/27/16 at 18:00 Total Parenteral Nutrition (Tpn) 1,000 ml @ 70 mls/hr [id number] IV Last administered on 05/04/16 10:54; Admin Dose 70 MLS/HR; Start 04/27/16 at 18:00 Mupirocin (Bactroban) 1 applic BID TOP Last administered on 05/04/16 08:34; Admin Dose 1 APPLIC; Start 04/27/16 at 21:00 Metoclopramide HCl (Reglan) 10 mg Q6 IV Last administered on 05/04/16 12:04; Admin Dose 10 MG; Start 04/29/16 at 12:00 Hydromorphone HCl (Dilaudid) 0.5 mg Q2 PRN IV SEVERE PAIN LEVEL 7-10 Last administered on 05/04/16 08:28; Admin Dose 0.5 MG; Start 04/30/16 at 12:00 Diphenhydramine HCl 25 mg 25 mg Q6H PRN IV ALLERGIC REACTION Last administered on 05/04/16 05:30; Admin Dose 25 MG; Start 04/30/16 at 12:10 Imipenem/ Cilastatin Sodium (Primaxin 500 Mg/ 100 ml (Pmx)) 100 ml @ 100 mls/ hr Q8 IVPB Last administered on 05/04/16 13:26; Admin Dose 100 MLS/HR; Start 04/30/16 at 22:00 Methylnaltrexone [place] 12 mg 12 mg Q48H SC Last administered on 05/04/16 08: 32; Admin Dose 12 MG; Start 05/02/16 at 09:00 Daptomycin 400 mg/ Sodium Chloride 100 ml @ 200 mls/hr Q24H IVPB Last administered on 05/03/16 18:42; Admin Dose 200 MLS/HR; Start 05/01/16 at 18:00 Caspofungin/ Sodium Chloride (Cancidas/NS) 250 ml @ 250 mls/hr Q24H IVPB ; Start 05/04/16 at 14:00 Octreotide Acetate (Sandostatin) 150 mcg TID SC Last administered on 05/04/16 12:08; Admin Dose 150 MCG; Start 05/03/16 at 21:00 AMERICA STARR M.D. May 04, 2016 13:55
[2016-05-04] MEDS: CASPOFUNGIN 50 MG in SOD CHLORIDE 0.9% 250 ML IVPB SCH (14:33)
--- NOTE | 2016-05-04 14:41 | CONS ---
Date/Time of Note Date/Time of Note DATE: 05/04/16 TIME: 14:33 Assessment/Plan Assessment/Plan Chief Complaint/Hosp Course 61-year-old female with stage IIIB ovarian cancer s/p surgery by Dr. Johnston in May 2015 and 6 cycles of carbo/taxol with persistently elevated CA125, recently admitted to outside hospital with CT concerning for persistent disease. Pt is now s/p optimal CRS for recurrent disease on 04/08. She was left with < 5mm of residual disease. She now has increased drainage from the wound site and the wound is open. Latest CT done yesterday is consistent with bowel leak. Pt was taken again to OR on 04/24 where she underwent a small bowel resection and anastomosis as well as incisional hernia repair. Intraoperatively pt was noted to have progressive disease and is now suffering from a enterocutaneous fistula - post op care per Dr. Dave. post transfusion CBC reveals HG> 11. will defer transfusion requirement to Dr. Dave in this post operative setting -continue Sandostatin - Agree with keeping NPO with TPN as patient has an enterocutaneous fistula. - LE Doppler do not reveal evidence of DVT - appreciate ID recs the multiple intra-peritoneal abscesses, bowel leakage and enterocutaneous fistula. continue current antibiotics including dapto (2016-), imipenem (04/30/2016) caspofungin (05/03/2016-) - repeat imaging prior to cessation of antibiotics, possibly in two weeks - at this point patient's clinical status is deteriorating and she is too frail and infected to start any type of chemotherapy. The understands that any chemotherapy given at this point would depress her immune system and make her susceptible to florid sepsis. - appreciate pain management recs. Pt now on Fentanyl patch,and Dilaudid P[employer]ER. spoke with palliative care this morning. given her breakthrough pain, I believe patient should be on a continuous dose of Dilaudid from [employer] Approximately 40 min were spent at patient's bedside and in coordination of her care Problems: Consultation Date/Type/Reason Admit Date/Time Apr 02, 2016 at 10:07 Initial Consult Date 04/02/16 Type of Consultation: Hematology Reason for Consultation recurrent ovarian cancer Referring Provider: BRIAN ZAZUETA MD 24 HR Interval Summary Free Text/Dictation pt is still draining from the enterocutaneous fistula. now with leakage of bowel contents. she is in a lot of pain from her abdominal wound Exam/Review of Systems Vital Signs Vitals Vital Signs Date Time Temp Pulse Resp B/P Pulse Ox O2 Delivery O2 Flow Rate FiO2 05/04/16 12:00 18 05/04/16 08:05 97.8 87 155/74 97 05/04/16 05:38 3.0 05/03/16 19:50 Nasal Cannula Intake and Output 05/03/16 05/03/16 05/04/16 15:00 23:00 07:00 Intake Total 1765 ml 933 ml Output Total 1610 ml 1450 ml Balance 155 ml -517 ml Exam Constitutional: alert, distress (with pain) Psych: anxiety, depression Head: normocephalic Eyes: nl conjunctiva ENMT: nl external ears & nose Neck: non-tender, supple Respiratory: clear to auscultation, normal air movement Cardiovascular: regular rate and rhythm Gastrointestinal: other (dressing in place. soaked with output), surgical scars , tender Musculoskeletal: nl extremities to inspection, nl gait and stance Extremities: normal pulses Results Result Diagram: 05/04/16 0429 05/04/16 0429 Results 24 hrs Laboratory Tests Test 05/03/16 20:26 05/04/16 04:24 05/04/16 04:29 05/04/16 08:30 Bedside Glucose 113 119 Phosphorus Level 3.1 Magnesium Level 1.7 White Blood Count 8.8 # Red Blood Count 3.89 L Hemoglobin 11.4 L Hematocrit 34.9 L Mean Corpuscular Volume 89.7 Mean Corpuscular Hemoglobin 29.3 Mean Corpuscular Hemoglobin Concent 32.7 Red Cell Distribution Width 16.2 H Platelet Count 117 L Mean Platelet Volume 12.6 H Neutrophils % 78.9 H Lymphocytes % 13.1 L Monocytes % 6.0 Eosinophils % 1.0 Basophils % 0.1 Nucleated Red Blood Cells % 0.0 Neutrophils # 7.0 Lymphocytes # 1.2 Monocytes # 0.5 Eosinophils # 0.1 Basophils # 0.0 Nucleated Red Blood Cells # 0.0 Sodium Level 129 L Potassium Level 3.7 Chloride Level 96 L Carbon Dioxide Level 28 Anion Gap 9 Blood Urea Nitrogen 20 Creatinine 0.61 Glucose Level 124 Calcium Level 8.0 L Medications Medications Current Medications Zolpidem Tartrate (Ambien) 5 mg HS PRN PO INSOMNIA Last administered on 23:48; Admin Dose 5 MG; Start 04/01/16 at 22:00 Diphenhydramine HCl (Benadryl) 25 mg Q6H PRN PO ITCHING Last administered on 06:49; Admin Dose 25 MG; Start 04/02/16 at 07:00 Al Hydrox/Mg Hydrox/Simethicone (Mag-Al Plus) 30 ml Q6H PRN PO GASTROINTESTINAL UPSET Last administered on 04/06/16 19:40; Admin Dose 30 ML; Start 04/02/16 at 17:30 Clonidine HCl 1 patch 1 patch Q7D TRANSDERM Last administered on 05/02/16 13: 40; Admin Dose 1 PATCH; Start 04/04/16 at 13:15 Albumin Human (Alburx) 500 ml @ 250 mls/hr ONCE PRN IVPB U/O BELOW 30 ML/HR X 2 HR; Start 04/07/16 at 22:30 Pantoprazole (Protonix Iv) 40 mg DAILY@06 IV Last administered on 05/04/16 05: 35; Admin Dose 40 MG; Start 04/08/16 at 06:00 Hydralazine HCl 10 mg 10 mg Q4H PRN IV HTN Last administered on 04/25/16 00:51 ; Admin Dose 10 MG; Start 04/13/16 at 20:00 Ondansetron HCl/ Dextrose (Zofran Inj/D5W) 54 ml @ 108 mls/hr Q6H PRN IV NAUSEA AND/OR VOMITING Last administered on 05/03/16 09:40; Admin Dose 108 MLS/ HR; Start 04/15/16 at 12:30 Diagnostic Test (Pha) (Accucheck) 1 ea Q12 XX Last administered on 05/03/16 20 :29; Admin Dose 1 EA; Start 04/18/16 at 09:00 Lorazepam (Ativan) 1 mg Q6H PRN IV ANXIETY Last administered on 05/04/16 09:10 ; Admin Dose 1 MG; Start 04/21/16 at 18:11 Hydromorphone HCl 0.5MG DOSE 20... Q4PCA IV Last administered on 05/04/16 12: 17; Admin Dose 6 MG; Start 04/27/16 at 15:30 Acetaminophen (Ofirmev 1000mg/ 100ml Iv) 100 ml @ 400 mls/hr Q6H IVPB Last administered on 05/04/16 09:13; Admin Dose 400 MLS/HR; Start 04/27/16 at 16:00 Fentanyl 1 patch 1 patch Q72H TRANSDERM Last administered on 05/03/16 18:54; Admin Dose 1 PATCH; Start 04/27/16 at 17:00 Fat Emulsion Intravenous 250 ml @ 10.417 mls/ hr Q24H IV Last administered on 05/03/16 16:30; Admin Dose 10.417 MLS/HR; Start 04/27/16 at 18:00 Total Parenteral Nutrition (Tpn) 1,000 ml @ 70 mls/hr [id number] IV Last administered on 05/04/16 10:54; Admin Dose 70 MLS/HR; Start 04/27/16 at 18:00 Mupirocin (Bactroban) 1 applic BID TOP Last administered on 05/04/16 08:34; Admin Dose 1 APPLIC; Start 04/27/16 at 21:00 Metoclopramide HCl (Reglan) 10 mg Q6 IV Last administered on 05/04/16 12:04; Admin Dose 10 MG; Start 04/29/16 at 12:00 Hydromorphone HCl (Dilaudid) 0.5 mg Q2 PRN IV SEVERE PAIN LEVEL 7-10 Last administered on 05/04/16 08:28; Admin Dose 0.5 MG; Start 04/30/16 at 12:00 Diphenhydramine HCl 25 mg 25 mg Q6H PRN IV ALLERGIC REACTION Last administered on 05/04/16 05:30; Admin Dose 25 MG; Start 04/30/16 at 12:10 Imipenem/ Cilastatin Sodium (Primaxin 500 Mg/ 100 ml (Pmx)) 100 ml @ 100 mls/ hr Q8 IVPB Last administered on 05/04/16 13:26; Admin Dose 100 MLS/HR; Start 04/30/16 at 22:00 Methylnaltrexone [place] 12 mg 12 mg Q48H SC Last administered on 05/04/16 08: 32; Admin Dose 12 MG; Start 05/02/16 at 09:00 Daptomycin 400 mg/ Sodium Chloride 100 ml @ 200 mls/hr Q24H IVPB Last administered on 05/03/16 18:42; Admin Dose 200 MLS/HR; Start 05/01/16 at 18:00 Caspofungin/ Sodium Chloride (Cancidas/NS) 250 ml @ 250 mls/hr Q24H IVPB ; Start 05/04/16 at 14:00 Octreotide Acetate (Sandostatin) 150 mcg TID SC Last administered on 05/04/16 12:08; Admin Dose 150 MCG; Start 05/03/16 at 21:00 DEMETRA COLUNGA M.D. May 04, 2016 14:40
[2016-05-04] MEDS: FAT EMULSION 20% 250 ML IV SCH (18:03)
[2016-05-04] MEDS: DAPTOMYCIN 400 MG in SOD CHLORIDE 0.9% 100 ML IVPB SCH (18:07)
--- NOTE | 2016-05-04 18:28 | PN ---
Date/Time of Note Date/Time of Note DATE: 05/04/16 TIME: 18:27 Assessment/Plan VTE Prophylaxis VTE Prophylaxis Intervention: SCD's Lines/Catheters IV Catheter Type (from Nrs): Peripheral IV Urinary Cath still in place: Yes Reason Cath still needed: urinary retention Assessment/Plan Chief Complaint/Hosp Course ASSESSMENT AND PLAN: - Progressive recurrent ovarian carcinoma. Status post chemotherapy. Dr. Foy is following in hematology/oncology consultation. Dr. Johnston is following from a surgery standpoint. S/p bowel resection 04/07. Status post debulking surgery on 04/24. Continue follow-up per general surgery recommendations. Continue TPN and lipids. Continue broad-spectrum antibiotics. Continue wound care according to surgery recommendations. - Hypoxemic respiratory failure postoperatively, patient was weaned off ventilator extubated. Continue supplemental oxygen incentive spirometer. - Intractable abdominal pain. Dr. Green is following in pain management consultation. Continue Dilaudid TOP FORMER and fentanyl patch. - Bilateral lower extremities edema, ultrasound is negative for DVT, continue Lasix, monitor electrolytes. -Hypokalemia, potassium replacement ordered. Family requested Palliative care eval. Continue Lovenox for deep venous thrombosis prophylaxis and Protonix for peptic ulcer disease prophylaxis. Further recommendations based on clinical course. Plan of care was discussed with Dr. Bravo. Problems: Exam/Review of Systems Vital Signs Vitals Vital Signs Date Time Temp Pulse Resp B/P Pulse Ox O2 Delivery O2 Flow Rate FiO2 05/04/16 18:18 18 05/04/16 08:05 97.8 87 155/74 97 05/04/16 05:38 3.0 05/03/16 19:50 Nasal Cannula Intake and Output 05/03/16 05/03/16 05/04/16 15:00 23:00 07:00 Intake Total 1765 ml 933 ml Output Total 1610 ml 1450 ml Balance 155 ml -517 ml Exam PHYSICAL ASSESSMENT: GENERAL: Well-developed, well-nourished female currently is awake, alert. HEENT: Head is atraumatic, normocephalic. NGT to LWS. NECK: Supple, no cervical lymphadenopathy, no thyromegaly. CHEST: Lungs clear bilaterally. There is no rhonchi, wheezes, rales noted. CARDIOVASCULAR: Normal S1, S2. No murmurs, gallops, clicks, rubs noted. ABDOMEN: Round, soft, s/p surgery. SKIN: There is no rash, petechiae noted. EXTREMITIES: No edema, clubbing, cyanosis. Pulses equal bilaterally 2+. Mild edema. SKIN: There is no rash or petechiae noted. NEUROLOGICAL: The patient is awake, alert and oriented x4. Results Result Diagram: 05/04/16 0429 05/04/16 0429 Results 24 hrs Laboratory Tests Test 05/03/16 20:26 05/04/16 04:24 05/04/16 04:29 05/04/16 08:30 Bedside Glucose 113 119 Phosphorus Level 3.1 Magnesium Level 1.7 White Blood Count 8.8 # Red Blood Count 3.89 L Hemoglobin 11.4 L Hematocrit 34.9 L Mean Corpuscular Volume 89.7 Mean Corpuscular Hemoglobin 29.3 Mean Corpuscular Hemoglobin Concent 32.7 Red Cell Distribution Width 16.2 H Platelet Count 117 L Mean Platelet Volume 12.6 H Neutrophils % 78.9 H Lymphocytes % 13.1 L Monocytes % 6.0 Eosinophils % 1.0 Basophils % 0.1 Nucleated Red Blood Cells % 0.0 Neutrophils # 7.0 Lymphocytes # 1.2 Monocytes # 0.5 Eosinophils # 0.1 Basophils # 0.0 Nucleated Red Blood Cells # 0.0 Sodium Level 129 L Potassium Level 3.7 Chloride Level 96 L Carbon Dioxide Level 28 Anion Gap 9 Blood Urea Nitrogen 20 Creatinine 0.61 Glucose Level 124 Calcium Level 8.0 L Medications Medications Current Medications Zolpidem Tartrate (Ambien) 5 mg HS PRN PO INSOMNIA Last administered on 23:48; Admin Dose 5 MG; Start 04/01/16 at 22:00 Diphenhydramine HCl (Benadryl) 25 mg Q6H PRN PO ITCHING Last administered on 06:49; Admin Dose 25 MG; Start 04/02/16 at 07:00 Al Hydrox/Mg Hydrox/Simethicone (Mag-Al Plus) 30 ml Q6H PRN PO GASTROINTESTINAL UPSET Last administered on 04/06/16 19:40; Admin Dose 30 ML; Start 04/02/16 at 17:30 Clonidine HCl 1 patch 1 patch Q7D TRANSDERM Last administered on 05/02/16 13: 40; Admin Dose 1 PATCH; Start 04/04/16 at 13:15 Albumin Human (Alburx) 500 ml @ 250 mls/hr ONCE PRN IVPB U/O BELOW 30 ML/HR X 2 HR; Start 04/07/16 at 22:30 Pantoprazole (Protonix Iv) 40 mg DAILY@06 IV Last administered on 05/04/16 05: 35; Admin Dose 40 MG; Start 04/08/16 at 06:00 Hydralazine HCl 10 mg 10 mg Q4H PRN IV HTN Last administered on 04/25/16 00:51 ; Admin Dose 10 MG; Start 04/13/16 at 20:00 Ondansetron HCl/ Dextrose (Zofran Inj/D5W) 54 ml @ 108 mls/hr Q6H PRN IV NAUSEA AND/OR VOMITING Last administered on 05/03/16 09:40; Admin Dose 108 MLS/ HR; Start 04/15/16 at 12:30 Diagnostic Test (Pha) (Accucheck) 1 ea Q12 XX Last administered on 05/03/16 20 :29; Admin Dose 1 EA; Start 04/18/16 at 09:00 Lorazepam 1 mg 1 mg Q6H PRN IV ANXIETY Last administered on 05/04/16 09:10; Admin Dose 1 MG; Start 04/21/16 at 18:11 Acetaminophen 100 ml @ 400 mls/hr Q6H IVPB Last administered on 05/04/16 16: 15; Admin Dose 400 MLS/HR; Start 04/27/16 at 16:00 Fat Emulsion Intravenous 250 ml @ 10.417 mls/ hr Q24H IV Last administered on 05/04/16 18:03; Admin Dose 10.417 MLS/HR; Start 04/27/16 at 18:00 Total Parenteral Nutrition (Tpn) 1,000 ml @ 70 mls/hr [id number] IV Last administered on 05/04/16 10:54; Admin Dose 70 MLS/HR; Start 04/27/16 at 18:00 Mupirocin (Bactroban) 1 applic BID TOP Last administered on 05/04/16 08:34; Admin Dose 1 APPLIC; Start 04/27/16 at 21:00 Metoclopramide HCl (Reglan) 10 mg Q6 IV Last administered on 05/04/16 18:07; Admin Dose 10 MG; Start 04/29/16 at 12:00 Diphenhydramine HCl 25 mg 25 mg Q6H PRN IV ALLERGIC REACTION Last administered on 05/04/16 05:30; Admin Dose 25 MG; Start 04/30/16 at 12:10 Imipenem/ Cilastatin Sodium (Primaxin 500 Mg/ 100 ml (Pmx)) 100 ml @ 100 mls/ hr Q8 IVPB Last administered on 05/04/16 13:26; Admin Dose 100 MLS/HR; Start 04/30/16 at 22:00 Methylnaltrexone [place] 12 mg 12 mg Q48H SC Last administered on 05/04/16 08: 32; Admin Dose 12 MG; Start 05/02/16 at 09:00 Daptomycin 400 mg/ Sodium Chloride 100 ml @ 200 mls/hr Q24H IVPB Last administered on 05/04/16 18:07; Admin Dose 200 MLS/HR; Start 05/01/16 at 18:00 Caspofungin/ Sodium Chloride (Cancidas/NS) 250 ml @ 250 mls/hr Q24H IVPB Last administered on 05/04/16 14:33; Admin Dose 250 MLS/HR; Start 05/04/16 at 14:00 Octreotide Acetate (Sandostatin) 150 mcg TID SC Last administered on 05/04/16 12:08; Admin Dose 150 MCG; Start 05/03/16 at 21:00 Hydromorphone HCl (Dilaudid TOP FORMER) 0.5 MG/HR CONTINUOUS R... Q4PCA IV ; Start at 17:30 Hydromorphone HCl (Dilaudid) 1 mg Q2 PRN IV PAIN; Start 05/04/16 at 17:30 LARRY MEJIA May 04, 2016 18:28
[2016-05-04 19:50] VITALS: BP 144/81; PULSE 68; RESP 18
--- NOTE | 2016-05-04 20:21 | PN ---
DATE: 05/04/[address] Foy today and, based upon her discussion with family members, there is no further a ggressive care that can be given at this time which would improve her prognosis or quality of life. I spoke to the patient's and discussed options. They have decided to take her home for end of life care. I have offered hospice and they are in agreement with that. For renetta, I will adj ust her current pain medications through her [employer] and p.r.n. boluses by nurses of [facility]. Hopefull y, this will control her pain and she will need to go home with a CADD pump tomorrow. If she cannot go home with a CADD pump because we cannot find a hospice, I will supply it. Then, I will speak to family members once again and she certainly qualifies for in-house general inpatient care hospice marisela. Dictated By: LEIF GLASS MD LP/NTS Conf#: [id number] DID#: [id number] CC: BRIAN ZAZUETA MD;*EndCC*
[2016-05-05] MEDS: HYDROmorphONE 1 MG/ML SYG IV PRN ×7 (01:12→13:47)
[2016-05-05] MEDS: DIPHENHYDRAMINE 50 MG INJ IV PRN (01:14)
[2016-05-05] MEDS: TPN 1,000 ML IV SCH ×3 (01:16→14:43)
[2016-05-05] MEDS: LORAZEPAM 2 MG INJ IV PRN ×3 (02:54→16:44)
[2016-05-05] MEDS: ACETAMINOPHEN 1000MG/100ML IV 100 ML IVPB SCH ×4 (04:26→21:20)
[2016-05-05 05:13] LABS: ADD SCAN DIFF NO
[2016-05-05 05:24] LABS: BASOPHILS % 0.3 % (0.0-2.0); EOSINOPHILS # 0.1 10^3/ul (0.0-0.5); EOSINOPHILS % 1.1 % (0.0-7.0); HEMOGLOBIN 10.5 g/dl (12.0-16.0); LYMPHOCYTES # 1.3 10^3/ul (0.8-2.9); LYMPHOCYTES % 10.9 % (15.0-51.0); MEAN CORPUSCULAR HEMOGLOBIN 29.2 pg (29.0-33.0); MEAN CORPUSCULAR HGB CONC 32.8 g/dl (32.0-37.0); MEAN CORPUSCULAR VOLUME 88.9 fl (82.0-101.0); MEAN PLATELET VOLUME 12.6 fl (7.4-10.4); MONOCYTE # 0.6 10^3/ul (0.3-0.9); MONOCYTES % 5.3 % (0.0-11.0); NEUTROPHIL # 9.9 10^3/ul (1.6-7.5); NEUTROPHILS % 81.2 % (39.0-77.0); NUCLEATED RED BLOOD CELLS # 0.1 10^3/ul (0.0-0.0); NUCLEATED RED BLOOD CELLS% 0.5 /100WBC (0.0-0.0); PLATELET COUNT 122 10^3/UL (140-415); RED CELL DISTRIBUTION WIDTH 16.1 % (11.5-14.5); WHITE BLOOD COUNT 12.2 10^3/ul (4.8-10.8)
[2016-05-05] MEDS: METOCLOPRAMIDE 10 MG INJ IV SCH ×4 (05:33→23:40)
[2016-05-05] MEDS: FUROSEMIDE 20 MG INJ IV SCH ×2 (05:34→17:56)
[2016-05-05] MEDS: IMIPENEM-CILAST 500MG IV (PMX) 100 ML IVPB SCH ×3 (05:36→21:20)
[2016-05-05] MEDS: PANTOPRAZOLE 40 MG INJ IV SCH (05:36)
[2016-05-05 07:19] LABS: POTASSIUM 3.5 mmol/L (3.5-5.1)
[2016-05-05 07:21] LABS: CREATININE 0.6 mg/dl (0.44-1.00)
[2016-05-05] MEDS: OCTREOTIDE 100 MCG INJ SC SCH ×4 (09:00→21:21)
[2016-05-05] MEDS: ACCU-CHEK XX SCH ×2 (09:00→21:00)
[2016-05-05] MEDS: MUPIROCIN 2% 22 GM OINT TOP SCH ×2 (09:13→21:21)
[2016-05-05 09:29] VITALS: BP 180/102; RESP 18
--- NOTE | 2016-05-05 12:00 | PN ---
Date/Time of Note Date/Time of Note DATE: 05/05/16 TIME: 11:58 Assessment/Plan VTE Prophylaxis VTE Prophylaxis Intervention: SCD's Lines/Catheters IV Catheter Type (from Nrs): Port-a-Cath Urinary Cath still in place: Yes Reason Cath still needed: urinary retention Assessment/Plan Chief Complaint/Hosp Course ASSESSMENT AND PLAN: - Progressive recurrent ovarian carcinoma. Status post chemotherapy. Dr. Foy is following in hematology/oncology consultation. Dr. Johnston is following from a surgery standpoint. S/p bowel resection 04/07. Status post debulking surgery on 04/24. Continue follow-up per general surgery recommendations. Continue TPN and lipids. Continue broad-spectrum antibiotics. - Hypoxemic respiratory failure postoperatively, patient was weaned off ventilator extubated. Continue supplemental oxygen incentive spirometer. - Intractable abdominal pain. Dr. Green is following in pain management consultation. Continue Dilaudid VARNISH THINNER and fentanyl patch. - Bilateral lower extremities edema, ultrasound is negative for DVT, continue Lasix, monitor electrolytes. -Hypokalemia, potassium replacement ordered. Family requested Palliative care eval. Dr Parisi consult is appreciated. Pending arrangements for hospice. Continue Lovenox for deep venous thrombosis prophylaxis and Protonix for peptic ulcer disease prophylaxis. Further recommendations based on clinical course. Plan of care was discussed with Dr. Bravo. Problems: Subjective 24 Hr Interval Summary Free Text/Dictation Patient with episodes of break thorough pain, no N/V. Exam/Review of Systems Vital Signs Vitals Vital Signs Date Time Temp Pulse Resp B/P Pulse Ox O2 Delivery O2 Flow Rate FiO2 05/05/16 09:29 97.9 84 18 180/102 98 05/05/16 02:21 3.0 05/04/16 21:00 Nasal Cannula Intake and Output 05/04/16 05/04/16 05/05/16 15:00 23:00 07:00 Intake Total 812 ml 1191 ml 1121 ml Output Total 40 ml 1890 ml 1790 ml Balance 772 ml -699 ml -669 ml Exam PHYSICAL ASSESSMENT: GENERAL: Well-developed, well-nourished female currently is awake, alert. HEENT: Head is atraumatic, normocephalic. NGT to LWS. NECK: Supple, no cervical lymphadenopathy, no thyromegaly. CHEST: Lungs clear bilaterally. There is no rhonchi, wheezes, rales noted. CARDIOVASCULAR: Normal S1, S2. No murmurs, gallops, clicks, rubs noted. ABDOMEN: Round, soft, s/p surgery. SKIN: There is no rash, petechiae noted. EXTREMITIES: No edema, clubbing, cyanosis. Pulses equal bilaterally 2+. Mild edema. SKIN: There is no rash or petechiae noted. NEUROLOGICAL: The patient is awake, alert and oriented x4. Results Result Diagram: 05/05/16 0435 05/05/16 0435 Results 24 hrs Laboratory Tests Test 05/04/16 20:40 05/05/16 04:35 05/05/16 09:16 Bedside Glucose 129 137 White Blood Count 12.2 #H Red Blood Count 3.60 L Hemoglobin 10.5 L Hematocrit 32.0 L Mean Corpuscular Volume 88.9 Mean Corpuscular Hemoglobin 29.2 Mean Corpuscular Hemoglobin Concent 32.8 Red Cell Distribution Width 16.1 H Platelet Count 122 L Mean Platelet Volume 12.6 H Neutrophils % 81.2 H Lymphocytes % 10.9 L Monocytes % 5.3 Eosinophils % 1.1 Basophils % 0.3 Nucleated Red Blood Cells % 0.5 H Neutrophils # 9.9 H Lymphocytes # 1.3 Monocytes # 0.6 Eosinophils # 0.1 Basophils # 0.0 Nucleated Red Blood Cells # 0.1 H Sodium Level 130 L Potassium Level 3.5 Chloride Level 97 Carbon Dioxide Level 27 Anion Gap 10 Blood Urea Nitrogen 18 Creatinine 0.60 Glucose Level 125 Calcium Level 8.0 L Medications Medications Current Medications Zolpidem Tartrate (Ambien) 5 mg HS PRN PO INSOMNIA Last administered on 23:48; Admin Dose 5 MG; Start 04/01/16 at 22:00 Diphenhydramine HCl (Benadryl) 25 mg Q6H PRN PO ITCHING Last administered on 06:49; Admin Dose 25 MG; Start 04/02/16 at 07:00 Al Hydrox/Mg Hydrox/Simethicone (Mag-Al Plus) 30 ml Q6H PRN PO GASTROINTESTINAL UPSET Last administered on 04/06/16 19:40; Admin Dose 30 ML; Start 04/02/16 at 17:30 Clonidine HCl 1 patch 1 patch Q7D TRANSDERM Last administered on 05/02/16 13: 40; Admin Dose 1 PATCH; Start 04/04/16 at 13:15 Albumin Human (Alburx) 500 ml @ 250 mls/hr ONCE PRN IVPB U/O BELOW 30 ML/HR X 2 HR; Start 04/07/16 at 22:30 Pantoprazole (Protonix Iv) 40 mg DAILY@06 IV Last administered on 05/05/16 05: 36; Admin Dose 40 MG; Start 04/08/16 at 06:00 Hydralazine HCl 10 mg 10 mg Q4H PRN IV HTN Last administered on 04/25/16 00:51 ; Admin Dose 10 MG; Start 04/13/16 at 20:00 Ondansetron HCl/ Dextrose (Zofran Inj/D5W) 54 ml @ 108 mls/hr Q6H PRN IV NAUSEA AND/OR VOMITING Last administered on 05/03/16 09:40; Admin Dose 108 MLS/ HR; Start 04/15/16 at 12:30 Diagnostic Test (Pha) (Accucheck) 1 ea Q12 XX Last administered on 05/04/16 20 :41; Admin Dose 1 EA; Start 04/18/16 at 09:00 Lorazepam 1 mg 1 mg Q6H PRN IV ANXIETY Last administered on 05/05/16 09:13; Admin Dose 1 MG; Start 04/21/16 at 18:11 Acetaminophen 100 ml @ 400 mls/hr Q6H IVPB Last administered on 05/05/16 10: 17; Admin Dose 400 MLS/HR; Start 04/27/16 at 16:00 Fat Emulsion Intravenous 250 ml @ 10.417 mls/ hr Q24H IV Last administered on 05/04/16 18:03; Admin Dose 10.417 MLS/HR; Start 04/27/16 at 18:00 Total Parenteral Nutrition (Tpn) 1,000 ml @ 70 mls/hr [id number] IV Last administered on 05/05/16 01:16; Admin Dose 70 MLS/HR; Start 04/27/16 at 18:00 Mupirocin (Bactroban) 1 applic BID TOP Last administered on 05/05/16 09:13; Admin Dose 1 APPLIC; Start 04/27/16 at 21:00 Metoclopramide HCl (Reglan) 10 mg Q6 IV Last administered on 05/05/16 11:41; Admin Dose 10 MG; Start 04/29/16 at 12:00 Diphenhydramine HCl 25 mg 25 mg Q6H PRN IV ALLERGIC REACTION Last administered on 05/05/16 01:14; Admin Dose 25 MG; Start 04/30/16 at 12:10 Imipenem/ Cilastatin Sodium (Primaxin 500 Mg/ 100 ml (Pmx)) 100 ml @ 100 mls/ hr Q8 IVPB Last administered on 05/05/16 05:36; Admin Dose 100 MLS/HR; Start 04/30/16 at 22:00 Methylnaltrexone [place] 12 mg 12 mg Q48H SC Last administered on 05/04/16 08: 32; Admin Dose 12 MG; Start 05/02/16 at 09:00 Daptomycin 400 mg/ Sodium Chloride 100 ml @ 200 mls/hr Q24H IVPB Last administered on 05/04/16 18:07; Admin Dose 200 MLS/HR; Start 05/01/16 at 18:00 Caspofungin/ Sodium Chloride (Cancidas/NS) 250 ml @ 250 mls/hr Q24H IVPB Last administered on 05/04/16 14:33; Admin Dose 250 MLS/HR; Start 05/04/16 at 14:00 Octreotide Acetate (Sandostatin) 150 mcg TID SC Last administered on 05/05/16 11:42; Admin Dose 150 MCG; Start 05/03/16 at 21:00 Hydromorphone HCl (Dilaudid VARNISH THINNER) 0.5 MG/HR CONTINUOUS R... Q4PCA IV ; Start at 17:30 Hydromorphone HCl (Dilaudid) 1 mg Q2 PRN IV PAIN Last administered on 11:41; Admin Dose 1 MG; Start 05/04/16 at 17:30 LARRY MEJIA May 05, 2016 12:00
--- NOTE | 2016-05-05 12:29 | CONS ---
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 Parisi and Dr. Foy reviewed - I hold off leukocytosis workup (e.g. blood cultures, fluid Cx from EMERITA drain, urine culture) because Pt's agreed with hospice and waiting for going home. - until final decisions are made, I recommend continuing the current antibiotic regimen as follows: - continue dapto (05/01/2016-), CK wnl on 05/03/2016. Will repeat on 05/10/2016 - continue imipenem (04/30/2016-) - continue empiric caspofungin (05/03/2016-) management d/w Pt's family member and RN Problems: Consultation Date/Type/Reason Admit Date/Time Apr 02, 2016 at 10:07 Initial Consult Date 05/01/16 Type of Consultation: ID Referring Provider: BRIAN ZAZUETA MD 24 HR Interval Summary Subjective hx not possible: pt non-verbal Exam/Review of Systems Vital Signs Vitals Vital Signs Date Time Temp Pulse Resp B/P Pulse Ox O2 Delivery O2 Flow Rate FiO2 05/05/16 09:29 97.9 84 18 180/102 98 05/05/16 02:21 3.0 05/04/16 21:00 Nasal Cannula Intake and Output 05/04/16 05/04/16 05/05/16 15:00 23:00 07:00 Intake Total 812 ml 1191 ml 1121 ml Output Total 40 ml 1890 ml 1790 ml Balance 772 ml -699 ml -669 ml Exam Constitutional: frail, non-verbal Psych: confusion Head: atraumatic, normocephalic Eyes: nl conjunctiva, nl lids ENMT: nl external ears & nose, nl nasal mucosa & septum Neck: supple Respiratory: diminished breath sounds Cardiovascular: nl pulses, regular rate and rhythm Gastrointestinal: distended, other (lower abdominal wound with EMERITA drain), surgical scars Extremities: No edema Neurological: lethargic Skin: nl turgor Results Result Diagram: 05/05/165 05/05/16 0435 Results 24 hrs Laboratory Tests Test 05/04/16 20:40 05/05/16 04:35 05/05/16 09:16 Bedside Glucose 129 137 White Blood Count 12.2 #H Red Blood Count 3.60 L Hemoglobin 10.5 L Hematocrit 32.0 L Mean Corpuscular Volume 88.9 Mean Corpuscular Hemoglobin 29.2 Mean Corpuscular Hemoglobin Concent 32.8 Red Cell Distribution Width 16.1 H Platelet Count 122 L Mean Platelet Volume 12.6 H Neutrophils % 81.2 H Lymphocytes % 10.9 L Monocytes % 5.3 Eosinophils % 1.1 Basophils % 0.3 Nucleated Red Blood Cells % 0.5 H Neutrophils # 9.9 H Lymphocytes # 1.3 Monocytes # 0.6 Eosinophils # 0.1 Basophils # 0.0 Nucleated Red Blood Cells # 0.1 H Sodium Level 130 L Potassium Level 3.5 Chloride Level 97 Carbon Dioxide Level 27 Anion Gap 10 Blood Urea Nitrogen 18 Creatinine 0.60 Glucose Level 125 Calcium Level 8.0 L Medications Medications Current Medications Zolpidem Tartrate (Ambien) 5 mg HS PRN PO INSOMNIA Last administered on 23:48; Admin Dose 5 MG; Start 04/01/16 at 22:00 Diphenhydramine HCl (Benadryl) 25 mg Q6H PRN PO ITCHING Last administered on 06:49; Admin Dose 25 MG; Start 04/02/16 at 07:00 Al Hydrox/Mg Hydrox/Simethicone (Mag-Al Plus) 30 ml Q6H PRN PO GASTROINTESTINAL UPSET Last administered on 04/06/16 19:40; Admin Dose 30 ML; Start 04/02/16 at 17:30 Clonidine HCl 1 patch 1 patch Q7D TRANSDERM Last administered on 05/02/16 13: 40; Admin Dose 1 PATCH; Start 04/04/16 at 13:15 Albumin Human (Alburx) 500 ml @ 250 mls/hr ONCE PRN IVPB U/O BELOW 30 ML/HR X 2 HR; Start 04/07/16 at 22:30 Pantoprazole (Protonix Iv) 40 mg DAILY@06 IV Last administered on 05/05/16 05: 36; Admin Dose 40 MG; Start 04/08/16 at 06:00 Hydralazine HCl 10 mg 10 mg Q4H PRN IV HTN Last administered on 04/25/16 00:51 ; Admin Dose 10 MG; Start 04/13/16 at 20:00 Ondansetron HCl/ Dextrose (Zofran Inj/D5W) 54 ml @ 108 mls/hr Q6H PRN IV NAUSEA AND/OR VOMITING Last administered on 05/03/16 09:40; Admin Dose 108 MLS/ HR; Start 04/15/16 at 12:30 Diagnostic Test (Pha) (Accucheck) 1 ea Q12 XX Last administered on 05/04/16 20 :41; Admin Dose 1 EA; Start 04/18/16 at 09:00 Lorazepam 1 mg 1 mg Q6H PRN IV ANXIETY Last administered on 05/05/16 09:13; Admin Dose 1 MG; Start 04/21/16 at 18:11 Acetaminophen 100 ml @ 400 mls/hr Q6H IVPB Last administered on 05/05/16 10: 17; Admin Dose 400 MLS/HR; Start 04/27/16 at 16:00 Fat Emulsion Intravenous 250 ml @ 10.417 mls/ hr Q24H IV Last administered on 05/04/16 18:03; Admin Dose 10.417 MLS/HR; Start 04/27/16 at 18:00 Total Parenteral Nutrition (Tpn) 1,000 ml @ 70 mls/hr [id number] IV Last administered on 05/05/16 01:16; Admin Dose 70 MLS/HR; Start 04/27/16 at 18:00 Mupirocin (Bactroban) 1 applic BID TOP Last administered on 05/05/16 09:13; Admin Dose 1 APPLIC; Start 04/27/16 at 21:00 Metoclopramide HCl (Reglan) 10 mg Q6 IV Last administered on 05/05/16 11:41; Admin Dose 10 MG; Start 04/29/16 at 12:00 Diphenhydramine HCl 25 mg 25 mg Q6H PRN IV ALLERGIC REACTION Last administered on 05/05/16 01:14; Admin Dose 25 MG; Start 04/30/16 at 12:10 Imipenem/ Cilastatin Sodium (Primaxin 500 Mg/ 100 ml (Pmx)) 100 ml @ 100 mls/ hr Q8 IVPB Last administered on 05/05/16 05:36; Admin Dose 100 MLS/HR; Start 04/30/16 at 22:00 Methylnaltrexone [place] 12 mg 12 mg Q48H SC Last administered on 05/04/16 08: 32; Admin Dose 12 MG; Start 05/02/16 at 09:00 Daptomycin 400 mg/ Sodium Chloride 100 ml @ 200 mls/hr Q24H IVPB Last administered on 05/04/16 18:07; Admin Dose 200 MLS/HR; Start 05/01/16 at 18:00 Caspofungin/ Sodium Chloride (Cancidas/NS) 250 ml @ 250 mls/hr Q24H IVPB Last administered on 05/04/16 14:33; Admin Dose 250 MLS/HR; Start 05/04/16 at 14:00 Octreotide Acetate (Sandostatin) 150 mcg TID SC Last administered on 05/05/16 11:42; Admin Dose 150 MCG; Start 05/03/16 at 21:00 Hydromorphone HCl (Dilaudid [employer]IPMENT OPERATOR) 0.5 MG/HR CONTINUOUS R... Q4PCA IV ; Start at 17:30 Hydromorphone HCl (Dilaudid) 1 mg Q2 PRN IV PAIN Last administered on 11:41; Admin Dose 1 MG; Start 05/04/16 at 17:30 AMERICA STARR M.D. May 05, 2016 12:29
[2016-05-05] MEDS: ONDANSETRON INJ 8 MG in DEXTROSE 5% 50 ML IV PRN ×2 (13:41→21:59)
--- NOTE | 2016-05-05 13:44 | PN ---
Date/Time of Note Date/Time of Note DATE: 05/05/16 TIME: 13:43 Assessment/Plan VTE Prophylaxis VTE Prophylaxis Intervention: SCD's Lines/Catheters IV C[facility]ter Type (from [facility] Peripheral IV Urinary Cath still in place: Yes Assessment/Plan Chief Complaint/Hosp Course Ovarian cancer with recurrence would benefit from secondary CRS even though persistent disease because the problem is her chemo was delayed 3 months postop. Informed of need to start chemo nathan postop and will call [facility] Problems: Subjective 24 Hr Interval Summary Free Text/Dictation More comfortable and awaiting hospice. Exam/Review of Systems Vital Signs Vitals Vital Signs Date Time Temp Pulse Resp B/P Pulse Ox O2 Delivery O2 Flow Rate FiO2 05/05/16 09:29 97.9 84 18 180/102 98 05/05/16 08:00 Nasal Cannula 3.0 Intake and Output 05/04/16 05/04/16 05/05/16 15:00 23:00 07:00 Intake Total 812 ml 1191 ml 1121 ml Output Total 40 ml 1890 ml 1790 ml Balance 772 ml -699 ml -669 ml Results Result Diagram: 05/05/16 0435 05/05/16 0435 Results 24 hrs Laboratory Tests Test 05/04/16 20:40 05/05/16 04:35 05/05/16 09:16 Bedside Glucose 129 137 White Blood Count 12.2 #H Red Blood Count 3.60 L Hemoglobin 10.5 L Hematocrit 32.0 L Mean Corpuscular Volume 88.9 Mean Corpuscular Hemoglobin 29.2 Mean Corpuscular Hemoglobin Concent 32.8 Red Cell Distribution Width 16.1 H Platelet Count 122 L Mean Platelet Volume 12.6 H Neutrophils % 81.2 H Lymphocytes % 10.9 L Monocytes % 5.3 Eosinophils % 1.1 Basophils % 0.3 Nucleated Red Blood Cells % 0.5 H Neutrophils # 9.9 H Lymphocytes # 1.3 Monocytes # 0.6 Eosinophils # 0.1 Basophils # 0.0 Nucleated Red Blood Cells # 0.1 H Sodium Level 130 L Potassium Level 3.5 Chloride Level 97 Carbon Dioxide Level 27 Anion Gap 10 Blood Urea Nitrogen 18 Creatinine 0.60 Glucose Level 125 Calcium Level 8.0 L Medications Medications Current Medications Zolpidem Tartrate (Ambien) 5 mg HS PRN PO INSOMNIA Last administered on 23:48; Admin Dose 5 MG; Start 04/01/16 at 22:00 Diphenhydramine HCl (Benadryl) 25 mg Q6H PRN PO ITCHING Last administered on 06:49; Admin Dose 25 MG; Start 04/02/16 at 07:00 Al Hydrox/Mg Hydrox/Simethicone (Mag-Al Plus) 30 ml Q6H PRN PO GASTROINTESTINAL UPSET Last administered on 04/06/16 19:40; Admin Dose 30 ML; Start 04/02/16 at 17:30 Clonidine HCl 1 patch 1 patch Q7D TRANSDERM Last administered on 05/02/16 13: 40; Admin Dose 1 PATCH; Start 04/04/16 at 13:15 Albumin Human (Alburx) 500 ml @ 250 mls/hr ONCE PRN IVPB U/O BELOW 30 ML/HR X 2 HR; Start 04/07/16 at 22:30 Pantoprazole (Protonix Iv) 40 mg DAILY@06 IV Last administered on 05/05/16 05: 36; Admin Dose 40 MG; Start 04/08/16 at 06:00 Hydralazine HCl 10 mg 10 mg Q4H PRN IV HTN Last administered on 04/25/16 00:51 ; Admin Dose 10 MG; Start 04/13/16 at 20:00 Ondansetron HCl/ Dextrose (Zofran Inj/D5W) 54 ml @ 108 mls/hr Q6H PRN IV NAUSEA AND/OR VOMITING Last administered on 05/03/16 09:40; Admin Dose 108 MLS/ HR; Start 04/15/16 at 12:30 Diagnostic Test (Pha) (Accucheck) 1 ea Q12 XX Last administered on 05/04/16 20 :41; Admin Dose 1 EA; Start 04/18/16 at 09:00 Lorazepam 1 mg 1 mg Q6H PRN IV ANXIETY Last administered on 05/05/16 09:13; Admin Dose 1 MG; Start 04/21/16 at 18:11 Acetaminophen 100 ml @ 400 mls/hr Q6H IVPB Last administered on 05/05/16 10: 17; Admin Dose 400 MLS/HR; Start 04/27/16 at 16:00 Fat Emulsion Intravenous 250 ml @ 10.417 mls/ hr Q24H IV Last administered on 05/04/16 18:03; Admin Dose 10.417 MLS/HR; Start 04/27/16 at 18:00 Total Parenteral Nutrition (Tpn) 1,000 ml @ 70 mls/hr [id number] IV Last administered on 05/05/16 01:16; Admin Dose 70 MLS/HR; Start 04/27/16 at 18:00 Mupirocin (Bactroban) 1 applic BID TOP Last administered on 05/05/16 09:13; Admin Dose 1 APPLIC; Start 04/27/16 at 21:00 Metoclopramide HCl (Reglan) 10 mg Q6 IV Last administered on 05/05/16 11:41; Admin Dose 10 MG; Start 04/29/16 at 12:00 Diphenhydramine HCl 25 mg 25 mg Q6H PRN IV ALLERGIC REACTION Last administered on 05/05/16 01:14; Admin Dose 25 MG; Start 04/30/16 at 12:10 Imipenem/ Cilastatin Sodium (Primaxin 500 Mg/ 100 ml (Pmx)) 100 ml @ 100 mls/ hr Q8 IVPB Last administered on 05/05/16 05:36; Admin Dose 100 MLS/HR; Start 04/30/16 at 22:00 Methylnaltrexone [place] 12 mg 12 mg Q48H SC Last administered on 05/04/16 08: 32; Admin Dose 12 MG; Start 05/02/16 at 09:00 Daptomycin 400 mg/ Sodium Chloride 100 ml @ 200 mls/hr Q24H IVPB Last administered on 05/04/16 18:07; Admin Dose 200 MLS/HR; Start 05/01/16 at 18:00 Caspofungin/ Sodium Chloride (Cancidas/NS) 250 ml @ 250 mls/hr Q24H IVPB Last administered on 05/04/16 14:33; Admin Dose 250 MLS/HR; Start 05/04/16 at 14:00 Octreotide Acetate (Sandostatin) 150 mcg TID SC Last administered on 05/05/16 11:42; Admin Dose 150 MCG; Start 05/03/16 at 21:00 Hydromorphone HCl (Dilaudid MOBILE EQUIPMENT OPERATOR) 1 MG/HR CONTINUOUS R... Q4PCA IV ; Start at 17:30 Hydromorphone HCl (Dilaudid) 2 mg Q2 PRN IV PAIN; Start 05/05/16 at 13:30 ANDI WADDELL MD May 05, 2016 13:44
[2016-05-05] MEDS: CASPOFUNGIN 50 MG in SOD CHLORIDE 0.9% 250 ML IVPB SCH (14:43)
--- NOTE | 2016-05-05 15:00 | CONS ---
Date/Time of Note Date/Time of Note DATE: 05/05/16 TIME: 14:56 Assessment/Plan Assessment/Plan Chief Complaint/Hosp Course 61-year-old female with stage IIIB ovarian cancer s/p surgery by Dr. Johnston in May 2015 and 6 cycles of carbo/taxol with persistently elevated CA125, recently admitted to outside hospital with CT concerning for persistent disease. Pt is now s/p optimal CRS for recurrent disease on 04/08. She was left with < 5mm of residual disease. She now has increased drainage from the wound site and the wound is open. Latest CT done yesterday is consistent with bowel leak. Pt was taken again to OR on 04/24 where she underwent a small bowel resection and anastomosis as well as incisional hernia repair. 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 Given her extreme suffering, pain and progressive disease despite all interventions, the family has appropriately decided to take Ms [place] home on home hospice Approximately 40 min were spent at patient's bedside and in coordination of her care Problems: Consultation Date/Type/Reason Admit Date/Time Apr 02, 2016 at 10:07 Initial Consult Date 04/02/16 Type of Consultation: Hematology Reason for Consultation recurrent ovarian cancer Referring Provider: BRIAN ZAZUETA MD 24 HR Interval Summary Free Text/Dictation pt now on continuous Dilaudid infusion. her is currently comfortable but lethargic. pt and family have agreed to hospice. Exam/Review of Systems Vital Signs Vitals Vital Signs Date Time Temp Pulse Resp B/P Pulse Ox O2 Delivery O2 Flow Rate FiO2 05/05/16 09:29 97.9 84 18 180/102 98 05/05/16 08:00 Nasal Cannula 3.0 Intake and Output 05/04/16 05/04/16 05/05/16 15:00 23:00 07:00 Intake Total 812 ml 1191 ml 1121 ml Output Total 40 ml 1890 ml 1790 ml Balance 772 ml -699 ml -669 ml Exam Constitutional: other (lethargic. somnolent) Head: normocephalic Eyes: nl conjunctiva ENMT: nl external ears & nose Neck: non-tender, supple Respiratory: clear to auscultation, normal air movement Cardiovascular: regular rate and rhythm Gastrointestinal: other (dressing place) Musculoskeletal: nl extremities to inspection Results Result Diagram: 05/05/16 0435 05/05/16 0435 Results 24 hrs Laboratory Tests Test 05/04/16 20:40 05/05/16 04:35 05/05/16 09:16 Bedside Glucose 129 137 White Blood Count 12.2 #H Red Blood Count 3.60 L Hemoglobin 10.5 L Hematocrit 32.0 L Mean Corpuscular Volume 88.9 Mean Corpuscular Hemoglobin 29.2 Mean Corpuscular Hemoglobin Concent 32.8 Red Cell Distribution Width 16.1 H Platelet Count 122 L Mean Platelet Volume 12.6 H Neutrophils % 81.2 H Lymphocytes % 10.9 L Monocytes % 5.3 Eosinophils % 1.1 Basophils % 0.3 Nucleated Red Blood Cells % 0.5 H Neutrophils # 9.9 H Lymphocytes # 1.3 Monocytes # 0.6 Eosinophils # 0.1 Basophils # 0.0 Nucleated Red Blood Cells # 0.1 H Sodium Level 130 L Potassium Level 3.5 Chloride Level 97 Carbon Dioxide Level 27 Anion Gap 10 Blood Urea Nitrogen 18 Creatinine 0.60 Glucose Level 125 Calcium Level 8.0 L Medications Medications Current Medications Zolpidem Tartrate (Ambien) 5 mg HS PRN PO INSOMNIA Last administered on 23:48; Admin Dose 5 MG; Start 04/01/16 at 22:00 Diphenhydramine HCl (Benadryl) 25 mg Q6H PRN PO ITCHING Last administered on 06:49; Admin Dose 25 MG; Start 04/02/16 at 07:00 Al Hydrox/Mg Hydrox/Simethicone (Mag-Al Plus) 30 ml Q6H PRN PO GASTROINTESTINAL UPSET Last administered on 04/06/16 19:40; Admin Dose 30 ML; Start 04/02/16 at 17:30 Clonidine HCl 1 patch 1 patch Q7D TRANSDERM Last administered on 05/02/16 13: 40; Admin Dose 1 PATCH; Start 04/04/16 at 13:15 Albumin Human (Alburx) 500 ml @ 250 mls/hr ONCE PRN IVPB U/O BELOW 30 ML/HR X 2 HR; Start 04/07/16 at 22:30 Pantoprazole (Protonix Iv) 40 mg DAILY@06 IV Last administered on 05/05/16 05: 36; Admin Dose 40 MG; Start 04/08/16 at 06:00 Hydralazine HCl 10 mg 10 mg Q4H PRN IV HTN Last administered on 04/25/16 00:51 ; Admin Dose 10 MG; Start 04/13/16 at 20:00 Ondansetron HCl/ Dextrose (Zofran Inj/D5W) 54 ml @ 108 mls/hr Q6H PRN IV NAUSEA AND/OR VOMITING Last administered on 05/05/16 13:41; Admin Dose 108 MLS/ HR; Start 04/15/16 at 12:30 Diagnostic Test (Pha) (Accucheck) 1 ea Q12 XX Last administered on 05/04/16 20 :41; Admin Dose 1 EA; Start 04/18/16 at 09:00 Lorazepam 1 mg 1 mg Q6H PRN IV ANXIETY Last administered on 05/05/16 09:13; Admin Dose 1 MG; Start 04/21/16 at 18:11 Acetaminophen 100 ml @ 400 mls/hr Q6H IVPB Last administered on 05/05/16 10: 17; Admin Dose 400 MLS/HR; Start 04/27/16 at 16:00 Fat Emulsion Intravenous 250 ml @ 10.417 mls/ hr Q24H IV Last administered on 05/04/16 18:03; Admin Dose 10.417 MLS/HR; Start 04/27/16 at 18:00 Total Parenteral Nutrition (Tpn) 1,000 ml @ 70 mls/hr [id number] IV Last administered on 05/05/16 14:43; Admin Dose 70 MLS/HR; Start 04/27/16 at 18:00 Mupirocin (Bactroban) 1 applic BID TOP Last administered on 05/05/16 09:13; Admin Dose 1 APPLIC; Start 04/27/16 at 21:00 Metoclopramide HCl (Reglan) 10 mg Q6 IV Last administered on 05/05/16 11:41; Admin Dose 10 MG; Start 04/29/16 at 12:00 Diphenhydramine HCl 25 mg 25 mg Q6H PRN IV ALLERGIC REACTION Last administered on 05/05/16 01:14; Admin Dose 25 MG; Start 04/30/16 at 12:10 Imipenem/ Cilastatin Sodium (Primaxin 500 Mg/ 100 ml (Pmx)) 100 ml @ 100 mls/ hr Q8 IVPB Last administered on 05/05/16 13:44; Admin Dose 100 MLS/HR; Start 04/30/16 at 22:00 Methylnaltrexone [place] 12 mg 12 mg Q48H SC Last administered on 05/04/16 08: 32; Admin Dose 12 MG; Start 05/02/16 at 09:00 Daptomycin 400 mg/ Sodium Chloride 100 ml @ 200 mls/hr Q24H IVPB Last administered on 05/04/16 18:07; Admin Dose 200 MLS/HR; Start 05/01/16 at 18:00 Caspofungin/ Sodium Chloride (Cancidas/NS) 250 ml @ 250 mls/hr Q24H IVPB Last administered on 05/05/16 14:43; Admin Dose 250 MLS/HR; Start 05/04/16 at 14:00 Octreotide Acetate (Sandostatin) 150 mcg TID SC Last administered on 05/05/16 11:42; Admin Dose 150 MCG; Start 05/03/16 at 21:00 Hydromorphone HCl (Dilaudid DESIGN LEAD) 1 MG/HR CONTINUOUS R... Q4PCA IV ; Start at 17:30 Hydromorphone HCl (Dilaudid) 2 mg Q2 PRN IV PAIN Last administered on 13:47; Admin Dose 2 MG; Start 05/05/16 at 13:30 DEMETRA COLUNGA M.D. May 05, 2016 15:00
[2016-05-05] MEDS: HYDROmorphONE 0.2 MG/ML PCA IV SCH ×2 (15:24→23:39)
[2016-05-05] MEDS: FAT EMULSION 20% 250 ML IV SCH (17:56)
[2016-05-05] MEDS: DAPTOMYCIN 400 MG in SOD CHLORIDE 0.9% 100 ML IVPB SCH (17:56)
[2016-05-05 20:01] VITALS: BP 132/80; RESP 20
[2016-05-06] MEDS: TPN 1,000 ML IV SCH ×2 (02:12→09:18)
[2016-05-06] MEDS: ACETAMINOPHEN 1000MG/100ML IV 100 ML IVPB SCH ×4 (04:21→23:23)
[2016-05-06 05:02] LABS: ADD SCAN DIFF NO
[2016-05-06 05:21] LABS: BASOPHILS % 0.3 % (0.0-2.0); EOSINOPHILS # 0.2 10^3/ul (0.0-0.5); EOSINOPHILS % 1.7 % (0.0-7.0); HEMATOCRIT 29.2 % (37.0-47.0); HEMOGLOBIN 9.8 g/dl (12.0-16.0); LYMPHOCYTES # 1.6 10^3/ul (0.8-2.9); LYMPHOCYTES % 13.4 % (15.0-51.0); MEAN CORPUSCULAR HGB CONC 33.6 g/dl (32.0-37.0); MEAN CORPUSCULAR VOLUME 89.3 fl (82.0-101.0); MEAN PLATELET VOLUME 12.6 fl (7.4-10.4); MONOCYTE # 0.5 10^3/ul (0.3-0.9); MONOCYTES % 4.1 % (0.0-11.0); NEUTROPHIL # 9.6 10^3/ul (1.6-7.5); NEUTROPHILS % 79.3 % (39.0-77.0); NUCLEATED RED BLOOD CELLS% 0.2 /100WBC (0.0-0.0); PLATELET COUNT 119 10^3/UL (140-415); RED BLOOD COUNT 3.27 10^6/ul (4.20-5.40); RED CELL DISTRIBUTION WIDTH 16.4 % (11.5-14.5); WHITE BLOOD COUNT 12.1 10^3/ul (4.8-10.8)
[2016-05-06 05:26] LABS: POTASSIUM 3.5 mmol/L (3.5-5.1)
[2016-05-06 05:29] LABS: CREATININE 0.55 mg/dl (0.44-1.00)
[2016-05-06 05:30] LABS: CALCIUM 7.5 mg/dl (8.4-10.2)
[2016-05-06 05:31] LABS: MAGNESIUM 1.5 mg/dl (1.7-2.5); PHOSPHORUS 3.4 mg/dl (2.5-4.9)
[2016-05-06] MEDS: HYDROmorphONE 0.2 MG/ML PCA IV SCH ×3 (05:55→18:19)
[2016-05-06] MEDS: METOCLOPRAMIDE 10 MG INJ IV SCH ×4 (05:56→23:23)
[2016-05-06] MEDS: PANTOPRAZOLE 40 MG INJ IV SCH (05:59)
[2016-05-06] MEDS: IMIPENEM-CILAST 500MG IV (PMX) 100 ML IVPB SCH ×3 (05:59→22:23)
[2016-05-06] MEDS: FUROSEMIDE 20 MG INJ IV SCH ×2 (06:00→17:21)
[2016-05-06 07:00] VITALS: BP 156/96; RESP 20
[2016-05-06] MEDS: ACCU-CHEK XX SCH ×2 (09:19→21:00)
[2016-05-06] MEDS: OCTREOTIDE 100 MCG INJ SC SCH ×3 (09:19→22:03)
[2016-05-06] MEDS: METHYLNALTREXONE 12 MG/0.6 ML VIAL SC SCH (09:19)
[2016-05-06] MEDS: MUPIROCIN 2% 22 GM OINT TOP SCH ×2 (09:20→22:03)
--- NOTE | 2016-05-06 12:38 | CONS ---
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 Pt herself does not know she is going be under hospice. Until final decisions are made, I recommend continuing the current antibiotic regimen as follows: - continue dapto (05/01/2016-), CK wnl on 05/03/2016. Will repeat on 05/10/2016 - continue imipenem (04/30/2016-) - continue empiric caspofungin (05/03/2016-) management d/w Pt's daughter and family caseworker Problems: Consultation Date/Type/Reason Admit Date/Time Apr 02, 2016 at 10:07 Initial Consult Date 05/01/16 Type of Consultation: ID Referring Provider: BRIAN ZAZUETA MD 24 HR Interval Summary Constitutional: other (weak) Detailed Summary Eyes: no complaints ENT: no complaints Respiratory: no complaints Cardiovascular: no complaints Gastrointestinal: No pain Skin: no complaints Exam/Review of Systems Vital Signs Vitals Vital Signs Date Time Temp Pulse Resp B/P Pulse Ox O2 Delivery O2 Flow Rate FiO2 05/06/16 08:30 Nasal Cannula 3.0 05/06/16 07:00 99.2 106 20 156/96 95 Intake and Output 05/05/16 05/05/16 05/06/16 15:00 23:00 07:00 Intake Total 254 ml 450 ml 1419 ml Output Total 1400 ml 2430 ml Balance 254 ml -950 ml -1011 ml Exam Constitutional: frail Psych: no complaints Head: atraumatic, normocephalic Eyes: nl conjunctiva, nl lids ENMT: nl external ears & nose, nl nasal mucosa & septum Neck: supple Respiratory: diminished breath sounds Cardiovascular: nl pulses, regular rate and rhythm Gastrointestinal: distended, other (large mid abdominal wound with bile tinged fluid), soft, surgical scars Extremities: No edema Results Result Diagram: 05/06/16 0440 05/06/16 0440 Results 24 hrs Laboratory Tests Test 05/05/16 21:57 05/06/16 04:40 05/06/16 09:17 Bedside Glucose 118 112 White Blood Count 12.1 H Red Blood Count 3.27 L Hemoglobin 9.8 L Hematocrit 29.2 L Mean Corpuscular Volume 89.3 Mean Corpuscular Hemoglobin 30.0 Mean Corpuscular Hemoglobin Concent 33.6 Red Cell Distribution Width 16.4 H Platelet Count 119 L Mean Platelet Volume 12.6 H Neutrophils % 79.3 H Lymphocytes % 13.4 L Monocytes % 4.1 Eosinophils % 1.7 Basophils % 0.3 Nucleated Red Blood Cells % 0.2 H Neutrophils # 9.6 H Lymphocytes # 1.6 Monocytes # 0.5 Eosinophils # 0.2 Basophils # 0.0 Nucleated Red Blood Cells # 0.0 Sodium Level 134 L Potassium Level 3.5 Chloride Level 101 Carbon Dioxide Level 28 Anion Gap 9 Blood Urea Nitrogen 16 Creatinine 0.55 Glucose Level 121 Calcium Level 7.5 L Phosphorus Level 3.4 Magnesium Level 1.5 L Medications Medications Current Medications Zolpidem Tartrate (Ambien) 5 mg HS PRN PO INSOMNIA Last administered on 23:48; Admin Dose 5 MG; Start 04/01/16 at 22:00 Diphenhydramine HCl (Benadryl) 25 mg Q6H PRN PO ITCHING Last administered on 06:49; Admin Dose 25 MG; Start 04/02/16 at 07:00 Al Hydrox/Mg Hydrox/Simethicone (Mag-Al Plus) 30 ml Q6H PRN PO GASTROINTESTINAL UPSET Last administered on 04/06/16 19:40; Admin Dose 30 ML; Start 04/02/16 at 17:30 Clonidine HCl 1 patch 1 patch Q7D TRANSDERM Last administered on 05/02/16 13: 40; Admin Dose 1 PATCH; Start 04/04/16 at 13:15 Albumin Human (Alburx) 500 ml @ 250 mls/hr ONCE PRN IVPB U/O BELOW 30 ML/HR X 2 HR; Start 04/07/16 at 22:30 Pantoprazole (Protonix Iv) 40 mg DAILY@06 IV Last administered on 05/06/16 05: 59; Admin Dose 40 MG; Start 04/08/16 at 06:00 Hydralazine HCl 10 mg 10 mg Q4H PRN IV HTN Last administered on 04/25/16 00:51 ; Admin Dose 10 MG; Start 04/13/16 at 20:00 Ondansetron HCl/ Dextrose (Zofran Inj/D5W) 54 ml @ 108 mls/hr Q6H PRN IV NAUSEA AND/OR VOMITING Last administered on 05/05/16 21:59; Admin Dose 108 MLS/ HR; Start 04/15/16 at 12:30 Diagnostic Test (Pha) (Accucheck) 1 ea Q12 XX Last administered on 05/06/16 09 :19; Admin Dose 1 EA; Start 04/18/16 at 09:00 Lorazepam 1 mg 1 mg Q6H PRN IV ANXIETY Last administered on 05/05/16 16:44; Admin Dose 1 MG; Start 04/21/16 at 18:11 Acetaminophen 100 ml @ 400 mls/hr Q6H IVPB Last administered on 05/06/16 09: 19; Admin Dose 400 MLS/HR; Start 04/27/16 at 16:00 Fat Emulsion Intravenous 250 ml @ 10.417 mls/ hr Q24H IV Last administered on 05/05/16 17:56; Admin Dose 10.417 MLS/HR; Start 04/27/16 at 18:00 Total Parenteral Nutrition (Tpn) 1,000 ml @ 70 mls/hr [id number] IV Last administered on 05/06/16 09:18; Admin Dose 70 MLS/HR; Start 04/27/16 at 18:00 Mupirocin (Bactroban) 1 applic BID TOP Last administered on 05/06/16 09:20; Admin Dose 1 APPLIC; Start 04/27/16 at 21:00 Metoclopramide HCl (Reglan) 10 mg Q6 IV Last administered on 05/06/16 11:58; Admin Dose 10 MG; Start 04/29/16 at 12:00 Diphenhydramine HCl 25 mg 25 mg Q6H PRN IV ALLERGIC REACTION Last administered on 05/05/16 01:14; Admin Dose 25 MG; Start 04/30/16 at 12:10 Imipenem/ Cilastatin Sodium (Primaxin 500 Mg/ 100 ml (Pmx)) 100 ml @ 100 mls/ hr Q8 IVPB Last administered on 05/06/16 05:59; Admin Dose 100 MLS/HR; Start 04/30/16 at 22:00 Methylnaltrexone [place] 12 mg 12 mg Q48H SC Last administered on 05/06/16 09: 19; Admin Dose 12 MG; Start 05/02/16 at 09:00 Daptomycin 400 mg/ Sodium Chloride 100 ml @ 200 mls/hr Q24H IVPB Last administered on 05/05/16 17:56; Admin Dose 200 MLS/HR; Start 05/01/16 at 18:00 Caspofungin/ Sodium Chloride (Cancidas/NS) 250 ml @ 250 mls/hr Q24H IVPB Last administered on 05/05/16 14:43; Admin Dose 250 MLS/HR; Start 05/04/16 at 14:00 Octreotide Acetate (Sandostatin) 150 mcg TID SC Last administered on 05/06/16 09:19; Admin Dose 150 MCG; Start 05/03/16 at 21:00 Hydromorphone HCl (Dilaudid PROMOTION WRITER) 1 MG/HR CONTINUOUS R... Q4PCA IV Last administered on 05/06/16 12:08; Admin Dose 6 MG; Start 05/04/16 at 17:30 Hydromorphone HCl (Dilaudid) 2 mg Q2 PRN IV PAIN Last administered on 13:47; Admin Dose 2 MG; Start 05/05/16 at 13:30 AMERICA STARR M.D. May 06, 2016 12:38
--- NOTE | 2016-05-06 13:14 | PN ---
Date/Time of Note Date/Time of Note DATE: 05/06/16 TIME: 13:12 Assessment/Plan VTE Prophylaxis VTE Prophylaxis Intervention: SCD's Lines/Catheters IV Catheter Type (from Nrs): Peripheral IV Central line still needed: Yes Urinary Cath still in place: Yes Reason Cath still needed: urinary retention Assessment/Plan Chief Complaint/Hosp Course ASSESSMENT AND PLAN: - Progressive recurrent ovarian carcinoma. Status post chemotherapy. Dr. Foy is following in hematology/oncology consultation. Dr. Johnston is following from a surgery standpoint. S/p bowel resection 04/07. Status post debulking surgery on 04/24. Continue follow-up per general surgery recommendations. Continue TPN and lipids. Continue broad-spectrum antibiotics. - Hypoxemic respiratory failure postoperatively, patient was weaned off ventilator extubated. Continue supplemental oxygen incentive spirometer. - Intractable abdominal pain. Dr. Green is following in pain management consultation. Continue Dilaudid BACK TENDER INSULATION BOARD and fentanyl patch. - Bilateral lower extremities edema, ultrasound is negative for DVT, continue Lasix, monitor electrolytes. - Hypomagnesemia, magnesium replaced. Pending arrangements for in-house hospice. Continue Lovenox for deep venous thrombosis prophylaxis and Protonix for peptic ulcer disease prophylaxis. Further recommendations based on clinical course. Plan of care was discussed with Dr. Bravo. Problems: Exam/Review of Systems Vital Signs Vitals Vital Signs Date Time Temp Pulse Resp B/P Pulse Ox O2 Delivery O2 Flow Rate FiO2 05/06/16 08:30 Nasal Cannula 3.0 05/06/16 07:00 99.2 106 20 156/96 95 Intake and Output 05/05/16 05/05/16 05/06/16 14:59 22:59 06:59 Intake Total 254 ml 450 ml 325 ml Output Total 1400 ml 2430 ml Balance 254 ml -950 ml -2105 ml Exam PHYSICAL ASSESSMENT: GENERAL: Well-developed, well-nourished female currently is awake, alert. HEENT: Head is atraumatic, normocephalic. NGT to LWS. NECK: Supple, no cervical lymphadenopathy, no thyromegaly. CHEST: Lungs clear bilaterally. There is no rhonchi, wheezes, rales noted. CARDIOVASCULAR: Normal S1, S2. No murmurs, gallops, clicks, rubs noted. ABDOMEN: Round, soft, s/p surgery. SKIN: There is no rash, petechiae noted. EXTREMITIES: No edema, clubbing, cyanosis. Pulses equal bilaterally 2+. Mild edema. SKIN: There is no rash or petechiae noted. NEUROLOGICAL: The patient is awake, alert and oriented x4. Results Result Diagram: 05/06/16 0440 05/06/16 0440 Results 24 hrs Laboratory Tests Test 05/05/16 21:57 05/06/16 04:40 05/06/16 09:17 Bedside Glucose 118 112 White Blood Count 12.1 H Red Blood Count 3.27 L Hemoglobin 9.8 L Hematocrit 29.2 L Mean Corpuscular Volume 89.3 Mean Corpuscular Hemoglobin 30.0 Mean Corpuscular Hemoglobin Concent 33.6 Red Cell Distribution Width 16.4 H Platelet Count 119 L Mean Platelet Volume 12.6 H Neutrophils % 79.3 H Lymphocytes % 13.4 L Monocytes % 4.1 Eosinophils % 1.7 Basophils % 0.3 Nucleated Red Blood Cells % 0.2 H Neutrophils # 9.6 H Lymphocytes # 1.6 Monocytes # 0.5 Eosinophils # 0.2 Basophils # 0.0 Nucleated Red Blood Cells # 0.0 Sodium Level 134 L Potassium Level 3.5 Chloride Level 101 Carbon Dioxide Level 28 Anion Gap 9 Blood Urea Nitrogen 16 Creatinine 0.55 Glucose Level 121 Calcium Level 7.5 L Phosphorus Level 3.4 Magnesium Level 1.5 L Medications Medications Current Medications Zolpidem Tartrate (Ambien) 5 mg HS PRN PO INSOMNIA Last administered on 23:48; Admin Dose 5 MG; Start 04/01/16 at 22:00 Diphenhydramine HCl (Benadryl) 25 mg Q6H PRN PO ITCHING Last administered on 06:49; Admin Dose 25 MG; Start 04/02/16 at 07:00 Al Hydrox/Mg Hydrox/Simethicone (Mag-Al Plus) 30 ml Q6H PRN PO GASTROINTESTINAL UPSET Last administered on 04/06/16 19:40; Admin Dose 30 ML; Start 04/02/16 at 17:30 Clonidine HCl 1 patch 1 patch Q7D TRANSDERM Last administered on 05/02/16 13: 40; Admin Dose 1 PATCH; Start 04/04/16 at 13:15 Albumin Human (Alburx) 500 ml @ 250 mls/hr ONCE PRN IVPB U/O BELOW 30 ML/HR X 2 HR; Start 04/07/16 at 22:30 Pantoprazole (Protonix Iv) 40 mg DAILY@06 IV Last administered on 05/06/16 05: 59; Admin Dose 40 MG; Start 04/08/16 at 06:00 Hydralazine HCl 10 mg 10 mg Q4H PRN IV HTN Last administered on 04/25/16 00:51 ; Admin Dose 10 MG; Start 04/13/16 at 20:00 Ondansetron HCl/ Dextrose (Zofran Inj/D5W) 54 ml @ 108 mls/hr Q6H PRN IV NAUSEA AND/OR VOMITING Last administered on 05/05/16 21:59; Admin Dose 108 MLS/ HR; Start 04/15/16 at 12:30 Diagnostic Test (Pha) (Accucheck) 1 ea Q12 XX Last administered on 05/06/16 09 :19; Admin Dose 1 EA; Start 04/18/16 at 09:00 Lorazepam 1 mg 1 mg Q6H PRN IV ANXIETY Last administered on 05/05/16 16:44; Admin Dose 1 MG; Start 04/21/16 at 18:11 Acetaminophen 100 ml @ 400 mls/hr Q6H IVPB Last administered on 05/06/16 09: 19; Admin Dose 400 MLS/HR; Start 04/27/16 at 16:00 Fat Emulsion Intravenous 250 ml @ 10.417 mls/ hr Q24H IV Last administered on 05/05/16 17:56; Admin Dose 10.417 MLS/HR; Start 04/27/16 at 18:00 Total Parenteral Nutrition (Tpn) 1,000 ml @ 70 mls/hr [id number] IV Last administered on 05/06/16 09:18; Admin Dose 70 MLS/HR; Start 04/27/16 at 18:00 Mupirocin (Bactroban) 1 applic BID TOP Last administered on 05/06/16 09:20; Admin Dose 1 APPLIC; Start 04/27/16 at 21:00 Metoclopramide HCl (Reglan) 10 mg Q6 IV Last administered on 05/06/16 11:58; Admin Dose 10 MG; Start 04/29/16 at 12:00 Diphenhydramine HCl 25 mg 25 mg Q6H PRN IV ALLERGIC REACTION Last administered on 05/05/16 01:14; Admin Dose 25 MG; Start 04/30/16 at 12:10 Imipenem/ Cilastatin Sodium (Primaxin 500 Mg/ 100 ml (Pmx)) 100 ml @ 100 mls/ hr Q8 IVPB Last administered on 05/06/16 05:59; Admin Dose 100 MLS/HR; Start 04/30/16 at 22:00 Methylnaltrexone Spangle 12 mg 12 mg Q48H SC Last administered on 05/06/16 09: 19; Admin Dose 12 MG; Start 05/02/16 at 09:00 Daptomycin 400 mg/ Sodium Chloride 100 ml @ 200 mls/hr Q24H IVPB Last administered on 05/05/16 17:56; Admin Dose 200 MLS/HR; Start 05/01/16 at 18:00 Caspofungin/ Sodium Chloride (Cancidas/NS) 250 ml @ 250 mls/hr Q24H IVPB Last administered on 05/05/16 14:43; Admin Dose 250 MLS/HR; Start 05/04/16 at 14:00 Octreotide Acetate (Sandostatin) 150 mcg TID SC Last administered on 05/06/16 09:19; Admin Dose 150 MCG; Start 05/03/16 at 21:00 Hydromorphone HCl (Dilaudid BACK TENDER INSULATION BOARD) 1 MG/HR CONTINUOUS R... Q4PCA IV Last administered on 05/06/16 12:08; Admin Dose 6 MG; Start 05/04/16 at 17:30 Hydromorphone HCl (Dilaudid) 2 mg Q2 PRN IV PAIN Last administered on 13:47; Admin Dose 2 MG; Start 05/05/16 at 13:30 LARRY MEJIA May 06, 2016 13:14
[2016-05-06] MEDS: CASPOFUNGIN 50 MG in SOD CHLORIDE 0.9% 250 ML IVPB SCH (15:04)
[2016-05-06] MEDS: FAT EMULSION 20% 250 ML IV SCH (15:39)
[2016-05-06] MEDS: DAPTOMYCIN 400 MG in SOD CHLORIDE 0.9% 100 ML IVPB SCH (17:21)
[2016-05-06 20:37] VITALS: BP 128/76; RESP 18
[2016-05-06] MEDS: ONDANSETRON INJ 8 MG in DEXTROSE 5% 50 ML IV PRN (21:57)
[2016-05-06] MEDS: DIPHENHYDRAMINE 50 MG INJ IV PRN (22:01)
[2016-05-07] MEDS: HYDROmorphONE 0.2 MG/ML PCA IV SCH ×5 (00:30→23:22)
[2016-05-07] MEDS: TPN 1,000 ML IV SCH ×2 (01:09→05:19)
[2016-05-07] MEDS: ACETAMINOPHEN 1000MG/100ML IV 100 ML IVPB SCH ×4 (05:18→21:47)
[2016-05-07] MEDS: PANTOPRAZOLE 40 MG INJ IV SCH (05:18)
[2016-05-07] MEDS: METOCLOPRAMIDE 10 MG INJ IV SCH ×4 (05:18→23:56)
[2016-05-07] MEDS: FUROSEMIDE 20 MG INJ IV SCH (05:20)
[2016-05-07 05:34] LABS: POTASSIUM 3.9 mmol/L (3.5-5.1)
[2016-05-07 05:37] LABS: CREATININE 0.6 mg/dl (0.44-1.00)
[2016-05-07 05:38] LABS: CALCIUM 8.3 mg/dl (8.4-10.2); MAGNESIUM 1.7 mg/dl (1.7-2.5); PHOSPHORUS 3.7 mg/dl (2.5-4.9)
[2016-05-07] MEDS: IMIPENEM-CILAST 500MG IV (PMX) 100 ML IVPB SCH (06:26)
[2016-05-07] MEDS: HYDROmorphONE 1 MG/ML SYG IV PRN (06:45)
[2016-05-07 08:04] VITALS: BP 152/82; RESP 19
[2016-05-07] MEDS: MUPIROCIN 2% 22 GM OINT TOP SCH (08:54)
[2016-05-07] MEDS: OCTREOTIDE 100 MCG INJ SC SCH ×2 (08:54→13:00)
[2016-05-07] MEDS: ACCU-CHEK XX SCH (09:02)
[2016-05-07] MEDS: ONDANSETRON INJ 8 MG in DEXTROSE 5% 50 ML IV PRN ×2 (10:33→21:22)
[2016-05-07] MEDS ORDERED: ALBUTEROL/IPRATROPIUM (NEB) 3 ML AMP HHN PRN (14:30)
[2016-05-07] MEDS ORDERED: ACETAMINOPHEN 650 MG SUPP PR PRN (14:30)
[2016-05-07] MEDS ORDERED: ARTIFICIAL TEARS 15 ML OPH BOTH EYES PRN ×3 (14:30→15:00)
[2016-05-07] MEDS ORDERED: DIMETHICONE STICK TOP PRN ×2 (15:00)
[2016-05-07] MEDS: LORAZEPAM 2 MG INJ IV PRN (16:08)
[2016-05-07 20:07] VITALS: BP 134/70; RESP 16
[2016-05-07] MEDS: DIPHENHYDRAMINE 50 MG INJ IV PRN (21:41)
--- NOTE | 2016-05-07 22:35 | PN ---
Date/Time of Note Date/Time of Note DATE: 05/07/16 TIME: 22:31 Assessment/Plan VTE Prophylaxis VTE Prophylaxis Intervention: LMWH Lines/Catheters IV Catheter Type (from Nrs): Peripheral IV Urinary Cath still in place: Yes Assessment/Plan Chief Complaint/Hosp Course Ovarian cancer with recurrence would benefit from secondary CRS even though persistent disease because the problem is her chemo was delayed 3 months postop. Informed of need to start chemo nathan postop and will call Medc Problems: Assessment/Plan A- comfortable and awaits home hospice P- per family discussed course and reiterated options and prognosis. They specifically prefer home hospice. Will discuss with [employer]/ Med Onc a.m. Subjective 24 Hr Interval Summary Free Text/Dictation S- sedated and more comfortable O- Abd- some distentin and packed; no chg Ext Nt A- comfortable and awaits home hospice P- per family discussed course and reiterated options and prognosis. They specifically prefer home hospice. Will discuss with [employer]/ Med Onc a.m. Exam/Review of Systems Vital Signs Vitals Vital Signs Date Time Temp Pulse Resp B/P Pulse Ox O2 Delivery O2 Flow Rate FiO2 05/07/16 20:07 97.6 77 16 134/70 97 05/07/16 10:48 Nasal Cannula 4.0 Intake and Output 05/06/16 05/06/16 05/07/16 15:00 23:00 07:00 Intake Total 1415 ml 1222 ml Output Total 540 ml 1900 ml Balance 875 ml -678 ml Results Result Diagram: 05/06/16 0440 05/07/16 0445 Results 24 hrs Laboratory Tests Test 05/07/16 04:45 05/07/16 08:58 Sodium Level 133 L Potassium Level 3.9 Chloride Level 99 Carbon Dioxide Level 29 Anion Gap 9 Blood Urea Nitrogen 20 Creatinine 0.60 Glucose Level 122 Calcium Level 8.3 L Phosphorus Level 3.7 Magnesium Level 1.7 Bedside Glucose 144 Medications Medications Current Medications Zolpidem Tartrate (Ambien) 5 mg HS PRN PO INSOMNIA Last administered on 23:48; Admin Dose 5 MG; Start 04/01/16 at 22:00 Diphenhydramine HCl (Benadryl) 25 mg Q6H PRN PO ITCHING Last administered on 06:49; Admin Dose 25 MG; Start 04/02/16 at 07:00 Al Hydrox/Mg Hydrox/Simethicone (Mag-Al Plus) 30 ml Q6H PRN PO GASTROINTESTINAL UPSET Last administered on 04/06/16 19:40; Admin Dose 30 ML; Start 04/02/16 at 17:30 Pantoprazole 40 mg 40 mg DAILY@06 IV Last administered on 05/07/16 05:18; Admin Dose 40 MG; Start 04/08/16 at 06:00 Ondansetron HCl/ Dextrose (Zofran Inj/D5W) 54 ml @ 108 mls/hr Q6H PRN IV NAUSEA AND/OR VOMITING Last administered on 05/07/16 21:22; Admin Dose 108 MLS/ HR; Start 04/15/16 at 12:30 Lorazepam 1 mg 1 mg Q6H PRN IV ANXIETY Last administered on 05/07/16 16:08; Admin Dose 1 MG; Start 04/21/16 at 18:11 Acetaminophen (Ofirmev 1000mg/ 100ml Iv) 100 ml @ 400 mls/hr Q6H IVPB Last administered on 05/07/16 21:47; Admin Dose 400 MLS/HR; Start 04/27/16 at 16:00 Metoclopramide HCl (Reglan) 10 mg Q6 IV Last administered on 05/07/16 17:42; Admin Dose 10 MG; Start 04/29/16 at 12:00 Diphenhydramine HCl (Benadryl) 25 mg Q6H PRN IV ALLERGIC REACTION Last administered on 05/07/16 21:41; Admin Dose 25 MG; Start 04/30/16 at 12:10 Hydromorphone HCl (Dilaudid AUTOMATIC PACKER OPERATOR) 1 MG/HR CONTINUOUS R... Q4PCA IV Last administered on 05/07/16 17:48; Admin Dose 6 MG; Start 05/04/16 at 17:30 Hydromorphone HCl (Dilaudid) 2 mg Q2 PRN IV PAIN Last administered on 06:45; Admin Dose 2 MG; Start 05/05/16 at 13:30 Acetaminophen (Tylenol Supp) 650 mg Q6H PRN [place] FEVER; Start 05/07/16 at 14:30 Eye Lubricant (Artificial Tears Oph) 2 drop Q6H PRN BOTH EYES DRY EYES; Start 05/07/16 at 14:30 Hyoscyamine (Levsin (Sl)) 0.25 mg Q4H PRN SL PRN SECRETIONS; Start 05/07/16 at 22:00 ANDI WADDELL MD May 07, 2016 22:35
[2016-05-08] MEDS: LORAZEPAM 2 MG INJ IV PRN ×2 (01:02→20:03)
[2016-05-08] MEDS: ACETAMINOPHEN 1000MG/100ML IV 100 ML IVPB SCH ×3 (03:35→16:12)
[2016-05-08] MEDS: HYDROmorphONE 0.2 MG/ML PCA IV SCH ×4 (04:32→21:36)
[2016-05-08] MEDS: ONDANSETRON INJ 8 MG in DEXTROSE 5% 50 ML IV PRN (05:39)
[2016-05-08] MEDS: PANTOPRAZOLE 40 MG INJ IV SCH (05:42)
[2016-05-08] MEDS: METOCLOPRAMIDE 10 MG INJ IV SCH ×4 (05:42→23:39)
--- NOTE | 2016-05-08 05:50 | HP ---
DATE OF ADMISSION: 04/02/2016 LEVEL OF CARE: [facility] DIAGNOSIS: Ovarian cancer status post surgery and chemotherapy , comorbid enterocutaneous fistula, multiple intraperitoneal abscesses, and bile leak. CHIEF COMPLAINT AND HISTORY OF PRESENT ILLNESS: The patient is a 61-year-old female with history of stage IIIB ovarian cancer status post surgery by Dr. Johnston in May 2015. Subsequently, she underwent multiple cycles of carbo/ Taxol chemotherapy; however, the patient continues to have persistently elevated CA-125. The patient was recently admitted to outside hospital and was noted to have persistent disease. The patient underwent resection surgery for recurrent disease on 04/08/2016; however, the patient was noted to have increased drainage from the wound site and was noted to have a bile leak and subsequently underwent small bowel resection and anastomosis. The patient intraoperatively was noted to have progressive disease and developed enterocutaneous fistula. A palliative care consult was obtained, and the family requested hospice care. The patient was started on IV Dilaudid pump. The patient, due to increasing ongoing fistula, was being kept n.p.o. with NG tube suction and TPN and Sandostatin which will be subsequently discontinued, and the patient was put on comfort care only. The patient does have abdominal pain. No reported chest pain or shortness of breath. No reported recent fever or chills. No reported bleeding from any site. No reported leg edema. The patient has become progressively weaker since admission and also looks frail. PAST SURGICAL HISTORY: Total abdominal hysterectomy and oophorectomy and colon resection by Dr. Johnston in 2015 and recent surgery as outlined above, status post hernia repair, status post right shoulder surgery x2. FAMILY HISTORY: Positive for hypertension in both parents. SOCIAL HISTORY: The patient, prior to admission, lived at home with her . No smoking, no alcohol. PHYSICAL EXAMINATION: GENERAL: The patient is awake, alert. VITAL SIGNS: Temperature 99, pulse 112, respirations 19, blood pressure 152/82 , O2 saturation 90% on 4 liters nasal cannula. HEENT: Atraumatic, normocephalic. Conjunctivae and lids normal. Oropharynx clear. NECK: Supple. No mass, no thyromegaly. CHEST: Revealed diminished air entry at bases. CARDIOVASCULAR: S1, S2 normal. No murmur. ABDOMEN: Soft, distended. Large abdominal wound. EXTREMITIES: No edema, clubbing, or cyanosis. NEUROLOGIC: The patient is awake, alert, fairly oriented with no gross focal deficit. The patient has generalized weakness. LABORATORY DATA: WBC 12.1, hemoglobin 9.8, platelets 119. Sodium 130, potassium 3.5, BUN 16, creatinine 0.5. IMPRESSION: Ovarian cancer status post multiple surgeries with persistent disease, also status post chemotherapy. PLAN: The patient will be continued on IV Dilaudid drip at 1 mg an hour and will be given bolus doses of IV Dilaudid 2 mg q. 2 hours p.r.n. We will also give Benadryl 25 mg IV q. 6 p.r.n. for itching, IV Zofran 8 mg q. 6 hours for nausea, vomiting, and IV Ativan for anxiety. We will also add Levsin for secretion and DuoNeb for chest congestion. All other medications will be stopped, and the patient's comfort care will be optimized. Plan of care discussed with the nursing staff and with desk nurse. I also recently spoke with the patient's family. Dictated By: BRIAN PATEL/RUDDY Conf#: [id number] DID#: [id number] MTDD
[2016-05-08] MEDS: ALBUTEROL/IPRATROPIUM (NEB) 3 ML AMP HHN PRN (05:57)
[2016-05-08] MEDS: HYDROmorphONE 1 MG/ML SYG IV PRN ×4 (09:30→22:05)
--- NOTE | 2016-05-08 18:02 | HP ---
DATE OF ADMISSION: 04/02/2016 LEVEL OF CARE: [facility] DIAGNOSIS: Ovarian cancer. Since yesterday, the patient's pain has been reasonably contro lled with 1 mg of Dilaudid every hour. The patient received 2 doses of IV Dilaudid for breakthrough pain. The patient continues to have drainage from enterocutaneous fistula. No reported fever or c hills. The patient is being kept n.p.o. due to enterocutaneous fistula. Patient did not have any v omiting. The patient continues to have persistent nausea, which is being treated with IV Zofran and Reglan. No reported bleeding from any site. PHYSICAL EXAMINATION: GENERAL: The patient is awake, alert. VITAL SIGNS: Temperature 97.6, pulse 88, respirations 18, blood pressure 134/70, O2 saturation 93% on 6 liters nasal cannula. HENT: Conjunctivae and lids are normal. Oropharynx clear. NECK: Supple. No mass, no thyromegaly. LUNGS: Clear to auscultation. CARDIOVASCULAR: S1, S2 normal. No murmur. ABDOMEN: The patient has a large wound and enterocutaneous fistula. EXTREMITIES: Edema present. NEUROLOGIC: The patient is awake, alert with no gross focal deficit. IMPRESSION: Ovarian cancer with multiple surgical procedures and status post chemo, currently under [facility] level of hospice care. The patient will be continued on IV Dilaudid 1 mg an hour. The patient will continue Levaquin for secretion and DuoNeb for chest congestion. Plan of care discussed with the patient's son and [id number]. Dictated By: BRIAN PATEL/RUDDY Conf#: [id number] DID#: [id number]
[2016-05-08] MEDS ORDERED: LORAZEPAM 2 MG INJ IV PRN (21:00)
--- NOTE | 2016-05-08 23:47 | PN ---
Date/Time of Note Date/Time of Note DATE: 05/08/16 TIME: 23:44 Assessment/Plan VTE Prophylaxis VTE Prophylaxis Intervention: SCD's Lines/Catheters IV Catheter Type [facility]from [facility]): Port-A-Cath Urinary Cath still in place: Yes Assessment/Plan Chief Complaint/Hosp Course Ovarian cancer with recurrence would benefit from secondary CRS even though persistent disease because the problem is her chemo was delayed 3 months postop. Informed of need to start chemo nathan postop and will call [facility] Problems: Assessment/Plan awaits home hospice Subjective 24 Hr Interval Summary Free Text/Dictation S- seen earlier; sedated and more comfortable O- Abd- some distentin and packed; no chg Ext Nt A- comfortable and awaits home hospice P- per family home hospice is what they await . Will discuss with Dr. Escobedo as nurse indicates approval needed Exam/Review of Systems Vital Signs Vitals Vital Signs Date Time Temp Pulse Resp B/P Pulse Ox O2 Delivery O2 Flow Rate FiO2 05/08/16 21:36 17 05/08/16 19:02 6.0 05/08/16 06:04 93 05/08/16 05:58 88 Simple Mask 05/07/16 20:07 97.6 134/70 Intake and Output 05/07/16 05/07/16 05/08/16 15:00 23:00 07:00 Intake Total 884 ml 62 ml 308 ml Output Total 1500 ml 2800 ml Balance 884 ml -1438 ml -2492 ml Results Result Diagram: 05/06/16 0440 05/07/16 0445 Medications Medications Current Medications Diphenhydramine HCl 25 mg 25 mg Q6H PRN PO ITCHING Last administered on 06:49; Admin Dose 25 MG; Start 04/02/16 at 07:00 Ondansetron HCl/ Dextrose (Zofran Inj/D5W) 54 ml @ 108 mls/hr Q6H PRN IV NAUSEA AND/OR VOMITING Last administered on 05/08/16 05:39; Admin Dose 108 MLS/ HR; Start 04/15/16 at 12:30 Metoclopramide HCl (Reglan) 10 mg Q6 IV Last administered on 05/08/16 23:39; Admin Dose 10 MG; Start 04/29/16 at 12:00 Diphenhydramine HCl (Benadryl) 25 mg Q6H PRN IV ALLERGIC REACTION Last administered on 05/07/16 21:41; Admin Dose 25 MG; Start 04/30/16 at 12:10 Hydromorphone HCl (Dilaudid CDL TRUCK DRIVER) 1 MG/HR CONTINUOUS R... Q4PCA IV Last administered on 05/08/16 21:36; Admin Dose 6 MG; Start 05/04/16 at 17:30 Hydromorphone HCl (Dilaudid) 2 mg Q2 PRN IV PAIN Last administered on 22:05; Admin Dose 2 MG; Start 05/05/16 at 13:30 Acetaminophen (Tylenol Supp) 650 mg Q6H PRN AL FEVER; Start 05/07/16 at 14:30 Eye Lubricant (Artificial Tears Oph) 2 drop Q6H PRN BOTH EYES DRY EYES; Start 05/07/16 at 14:30 Hyoscyamine (Levsin (Sl)) 0.25 mg Q4H PRN SL PRN SECRETIONS; Start 05/07/16 at 22:00 Lorazepam (Ativan) 1 mg Q4 PRN IV ANXIETY Last administered on 05/08/16 20:03 ; Admin Dose 1 MG; Start 05/08/16 at 19:45 ANDI WADDELL MD May 08, 2016 23:47
[2016-05-09] MEDS: LORAZEPAM 2 MG INJ IV PRN ×2 (01:34→13:23)
[2016-05-09] MEDS: HYDROmorphONE 0.2 MG/ML PCA IV SCH ×4 (03:10→21:56)
[2016-05-09] MEDS: METOCLOPRAMIDE 10 MG INJ IV SCH ×3 (05:26→18:03)
[2016-05-09] MEDS: HYDROmorphONE 1 MG/ML SYG IV PRN ×3 (05:26→20:44)
[2016-05-09 08:05] VITALS: BP 118/70; RESP 20
--- NOTE | 2016-05-09 12:40 | PN ---
Date/Time of Note Date/Time of Note DATE: 05/09/16 TIME: 12:40 Assessment/Plan VTE Prophylaxis VTE Prophylaxis Intervention: other Lines/Catheters IV Catheter Type (from Nrs): Port-A-Cath Urinary Cath still in place: Yes Reason Cath still needed: skin wounds contaminated by urine Assessment/Plan Chief Complaint/Hosp Course Ovarian cancer now on hospice - continue comfort care Problems: Subjective 24 Hr Interval Summary Free Text/Dictation Patient complain of shortness of breath Exam/Review of Systems Vital Signs Vitals Vital Signs Date Time Temp Pulse Resp B/P Pulse Ox O2 Delivery O2 Flow Rate FiO2 05/09/16 08:05 98.4 99 20 118/70 99 05/08/16 20:11 Nasal Cannula 2.0 Intake and Output 05/08/16 05/08/16 05/09/16 15:00 23:00 07:00 Intake Total 100 ml 100 ml 0 ml Output Total 100 ml 850 ml 1100 ml Balance 0 ml -750 ml -1100 ml Exam Constitutional: frail Head: atraumatic, normocephalic Neck: supple Respiratory: diminished breath sounds Cardiovascular: regular rate and rhythm Gastrointestinal: non-tender, soft Extremities: normal pulses Results Result Diagram: 05/06/16 0440 05/07/16 0445 Medications Medications Current Medications Diphenhydramine HCl 25 mg 25 mg Q6H PRN PO ITCHING Last administered on 06:49; Admin Dose 25 MG; Start 04/02/16 at 07:00 Ondansetron HCl/ Dextrose (Zofran Inj/D5W) 54 ml @ 108 mls/hr Q6H PRN IV NAUSEA AND/OR VOMITING Last administered on 05/08/16 05:39; Admin Dose 108 MLS/ HR; Start 04/15/16 at 12:30 Metoclopramide HCl (Reglan) 10 mg Q6 IV Last administered on 05/09/16 05:26; Admin Dose 10 MG; Start 04/29/16 at 12:00 Diphenhydramine HCl (Benadryl) 25 mg Q6H PRN IV ALLERGIC REACTION Last administered on 05/07/16 21:41; Admin Dose 25 MG; Start 04/30/16 at 12:10 Hydromorphone HCl (Dilaudid COLORIST PHOTOGRAPHY) 1 MG/HR CONTINUOUS R... Q4PCA IV Last administered on 05/09/16 09:30; Admin Dose 6 MG; Start 05/04/16 at 17:30 Hydromorphone HCl (Dilaudid) 2 mg Q2 PRN IV PAIN Last administered on 05/09/16 11:14; Admin Dose 2 MG; Start 05/05/16 at 13:30 Acetaminophen (Tylenol Supp) 650 mg Q6H PRN [place] FEVER; Start 05/07/16 at 14:30 Eye Lubricant (Artificial Tears Oph) 2 drop Q6H PRN BOTH EYES DRY EYES; Start 05/07/16 at 14:30 Hyoscyamine (Levsin (Sl)) 0.25 mg Q4H PRN SL PRN SECRETIONS; Start 05/07/16 at 22:00 Lorazepam (Ativan) 1 mg Q4 PRN IV ANXIETY Last administered on 05/09/16 01:34; Admin Dose 1 MG; Start 05/08/16 at 19:45 MELISSA RUGGIERO May 09, 2016 12:40
[2016-05-09 14:00] VITALS: BP 128/78; PULSE 68; RESP 18
[2016-05-09 20:54] VITALS: BP 139/72; RESP 20
[2016-05-10] MEDS: METOCLOPRAMIDE 10 MG INJ IV SCH ×4 (00:11→17:57)
[2016-05-10] MEDS: HYDROmorphONE 1 MG/ML SYG IV PRN ×4 (00:45→15:32)
[2016-05-10] MEDS: HYDROmorphONE 0.2 MG/ML PCA IV SCH ×3 (03:50→15:36)
[2016-05-10 08:04] VITALS: BP 127/79; RESP 20
[2016-05-10] MEDS: ALBUTEROL/IPRATROPIUM (NEB) 3 ML AMP HHN PRN ×2 (09:14→15:51)
[2016-05-10] MEDS: LORAZEPAM 2 MG INJ IV PRN ×4 (10:18→23:04)
--- NOTE | 2016-05-10 11:51 | PN ---
Date/Time of Note Date/Time of Note DATE: 05/10/16 TIME: 11:51 Assessment/Plan VTE Prophylaxis VTE Prophylaxis Intervention: other Lines/Catheters IV Catheter Type (from Nrs): port a cath Urinary Cath still in place: Yes Reason Cath still needed: skin wounds contaminated by urine Assessment/Plan Chief Complaint/Hosp Course Ovarian cancer now on hospice - continue comfort care Problems: Subjective 24 Hr Interval Summary Free Text/Dictation Patient is comfortable, family at bedside Exam/Review of Systems Vital Signs Vitals Vital Signs Date Time Temp Pulse Resp B/P Pulse Ox O2 Delivery O2 Flow Rate FiO2 05/10/16 09:39 Nasal Cannula 2.0 05/10/16 09:17 98 18 92 05/10/16 08:04 98.7 127/79 Intake and Output 05/09/16 05/09/16 05/10/16 15:00 23:00 07:00 Intake Total 0 ml Output Total 600 ml 700 ml Balance -600 ml -700 ml Exam Constitutional: frail, well developed Head: atraumatic, normocephalic Neck: supple Respiratory: diminished breath sounds Cardiovascular: regular rate and rhythm Gastrointestinal: non-tender, soft Results Result Diagram: 05/06/16 0440 05/07/16 0445 Medications Medications Current Medications Diphenhydramine HCl 25 mg 25 mg Q6H PRN PO ITCHING Last administered on 06:49; Admin Dose 25 MG; Start 04/02/16 at 07:00 Ondansetron HCl/ Dextrose (Zofran Inj/D5W) 54 ml @ 108 mls/hr Q6H PRN IV NAUSEA AND/OR VOMITING Last administered on 05/08/16 05:39; Admin Dose 108 MLS/ HR; Start 04/15/16 at 12:30 Metoclopramide HCl (Reglan) 10 mg Q6 IV Last administered on 05/10/16 05:41; Admin Dose 10 MG; Start 04/29/16 at 12:00 Diphenhydramine HCl (Benadryl) 25 mg Q6H PRN IV ALLERGIC REACTION Last administered on 05/07/16 21:41; Admin Dose 25 MG; Start 04/30/16 at 12:10 Hydromorphone HCl (Dilaudid DIRECTOR RIVER RESTORATION) 1 MG/HR CONTINUOUS R... Q4PCA IV Last administered on 05/10/16 09:55; Admin Dose 6 MG; Start 05/04/16 at 17:30 Hydromorphone HCl (Dilaudid) 2 mg Q2 PRN IV PAIN Last administered on 05/10/16 07:47; Admin Dose 2 MG; Start 05/05/16 at 13:30 Acetaminophen (Tylenol Supp) 650 mg Q6H PRN [place] FEVER; Start 05/07/16 at 14:30 Eye Lubricant (Artificial Tears Oph) 2 drop Q6H PRN BOTH EYES DRY EYES; Start 05/07/16 at 14:30 Hyoscyamine (Levsin (Sl)) 0.25 mg Q4H PRN SL PRN SECRETIONS; Start 05/07/16 at 22:00 Lorazepam (Ativan) 1 mg Q4 PRN IV ANXIETY Last administered on 05/10/16 10:18; Admin Dose 1 MG; Start 05/08/16 at 19:45 MELISSA RUGGIERO May 10, 2016 11:51
[2016-05-10] MEDS ORDERED: HYDROmorphONE 2 MG/ML SYG IV SCH (20:00)
--- NOTE | 2016-05-10 20:17 | PN ---
Date/Time of Note Date/Time of Note DATE: 05/10/16 TIME: 20:14 Assessment/Plan VTE Prophylaxis VTE Prophylaxis Intervention: SCD's Lines/Catheters IV Catheter Type (from Nrs): port a cath Urinary Cath still in place: Yes Assessment/Plan Chief Complaint/Hosp Course Ovarian cancer with recurrence would benefit from secondary CRS even though persistent disease because the problem is her chemo was delayed 3 months postop. Informed of need to start chemo nathan postop and will call [facility] Problems: Assessment/Plan A- comfortable and awaits home hospice. Apparently Family did not understand that hospice nurse would be present 24/hr per day and expressed reservations I addressed with Hospice rep, charge nurse and Family P- per family home hospice is what they await home as soon as possible and the understand all in terms of prognosis and purpose of hospice Subjective 24 Hr Interval Summary Free Text/Dictation S- sedated and more comfortable O- Abd- dressing on Ext Nt A- comfortable and awaits home hospice. Apparently Family did not understand that hospice nurse would be present 24/hr per day and expressed reservations I addressed with Hospice rep, charge nurse and Family P- per family home hospice is what they await home as soon as possible and the understand all in terms of prognosis and purpose of hospice Exam/Review of Systems Vital Signs Vitals Vital Signs Date Time Temp Pulse Resp B/P Pulse Ox O2 Delivery O2 Flow Rate FiO2 05/10/16 17:00 12 05/10/16 15:51 101 94 Nasal Cannula 4.0 05/10/16 08:04 98.7 127/79 Intake and Output 05/09/16 05/09/16 05/10/16 15:00 23:00 07:00 Intake Total 0 ml Output Total 600 ml 700 ml Balance -600 ml -700 ml Results Result Diagram: 05/06/16 0440 05/07/16 0445 Medications Medications Current Medications Diphenhydramine HCl 25 mg 25 mg Q6H PRN PO ITCHING Last administered on 06:49; Admin Dose 25 MG; Start 04/02/16 at 07:00 Ondansetron HCl/ Dextrose (Zofran Inj/D5W) 54 ml @ 108 mls/hr Q6H PRN IV NAUSEA AND/OR VOMITING Last administered on 05/08/16 05:39; Admin Dose 108 MLS/ HR; Start 04/15/16 at 12:30 Metoclopramide HCl (Reglan) 10 mg Q6 IV Last administered on 05/10/16 17:57; Admin Dose 10 MG; Start 04/29/16 at 12:00 Diphenhydramine HCl (Benadryl) 25 mg Q6H PRN IV ALLERGIC REACTION Last administered on 05/07/16 21:41; Admin Dose 25 MG; Start 04/30/16 at 12:10 Hydromorphone HCl (Dilaudid) 2 mg Q2 PRN IV PAIN Last administered on 05/10/16 15:32; Admin Dose 2 MG; Start 05/05/16 at 13:30 Acetaminophen (Tylenol Supp) 650 mg Q6H PRN [place] FEVER; Start 05/07/16 at 14:30 Eye Lubricant (Artificial Tears Oph) 2 drop Q6H PRN BOTH EYES DRY EYES; Start 05/07/16 at 14:30 Hyoscyamine (Levsin (Sl)) 0.25 mg Q4H PRN SL PRN SECRETIONS; Start 05/07/16 at 22:00 Lorazepam 1 mg 1 mg Q4 PRN IV ANXIETY Last administered on 05/10/16 18:40; Admin Dose 1 MG; Start 05/08/16 at 19:45 Hydromorphone HCl/ Dextrose (Dilaudid/D5W) 50 ml @ 2 mls/hr Q24H IV ; Start 05/10 at 20:00 ANDI WADDELL MD May 10, 2016 20:17
[2016-05-10] MEDS ORDERED: HYOSCYAMINE 0.125 MG SUBL TAB SL PRN (21:00)
[2016-05-10] MEDS: HYDROmorphONE 50 MG in DEXTROSE 5% 45 ML IV SCH (21:23)
[2016-05-11] MEDS: HYDROmorphONE 2 MG/ML SYG IV PRN ×2 (00:13→14:32)
[2016-05-11] MEDS: METOCLOPRAMIDE 10 MG INJ IV SCH ×4 (00:19→18:00)
[2016-05-11] MEDS: HYOSCYAMINE 0.125 MG SUBL TAB SL PRN ×2 (00:19→12:20)
[2016-05-11] MEDS: HYDROmorphONE 1 MG/ML SYG IV PRN ×4 (02:11→08:40)
[2016-05-11] MEDS: ALBUTEROL/IPRATROPIUM (NEB) 3 ML AMP HHN PRN (03:06)
[2016-05-11] MEDS: LORAZEPAM 2 MG INJ IV PRN (03:20)
[2016-05-11] MEDS: LORAZEPAM 2 MG INJ IV SCH ×2 (15:30→20:23)
--- NOTE | 2016-05-11 16:51 | PN ---
DATE: 05/11/2016 LEVEL OF CARE: GIP. PRIMARY DIAGNOSIS: Metastatic ovarian cancer. The patient continues decline and has not had any p.o. intake and appears anxious and also has episo dic shortness of breath and continues to require multiple doses of p.r.n. IV Dilaudid in addition to Dilaudid drip at 2 mg an hour. The patient also has developed increasing edema in the legs and upp er extremities. GENERAL: The patient is lethargic but arousable, appears anxious. VITAL SIGNS: Blood pressure 98.7, pulse 111, respirations 26, O2 saturation 92% on 2 liters nasal c annula. HEENT: No eye discharge or redness. Oropharynx revealed dry oral mucosa. NECK: No mass. CHEST: Revealed coarse breath sounds. CARDIOVASCULAR: S1, S2 normal. No murmur. ABDOMEN: The patient has an enterocutaneous fistula. EXTREMITIES: Edematous. NEUROLOGIC: The patient is lethargic but arousable. IMPRESSION: Metastatic ovarian cancer. PLAN: Will increase Dilaudid to 3 mg an hour and will also add Ativan 1 mg q. 6h. around the clock and q.4h. p.r.n. Will change Levsin to 2 drops q.6h. around the clock and q.4h. p.r.n. Plan of ca re discussed with the patient's family. We will continue to optimize comfort care. Continue GIP level of care at this time. Dictated By: BRIAN PATEL/RUDDY Conf#: [id number] DID#: [id number]
--- NOTE | 2016-05-11 20:04 | PN ---
Date/Time of Note Date/Time of Note DATE: 05/11/16 TIME: 20:01 Assessment/Plan VTE Prophylaxis VTE Prophylaxis Intervention: SCD's Lines/Catheters IV [facility] (from [facility] port a cath Urinary Cath still in place: Yes Assessment/Plan Chief Complaint/Hosp Course Ovarian cancer with recurrence would benefit from secondary CRS even though persistent disease because the problem is her chemo was delayed 3 months postop. Informed of need to start chemo sarah postop and will call [facility] Problems: Assessment/Plan A- comfortable and awaits home hospice. Apparently Family getting multiple answers about 24/hr per day and expressed reservations. I addressed with charge nurse and Family P- Charge nurse will clarify with Hospice [facility] home nursing is 24 hr per day continuous if associate partner. If continuous they agree to home hospice sarah. Subjective 24 Hr Interval Summary Free Text/Dictation S- sedated and comfortable O- Abd- dressing on Ext Nt A- comfortable and awaits home hospice. Apparently Family getting multiple answers about 24/hr per day and expressed reservations. I addressed with charge nurse and Family P- Charge nurse will clarify with Hospice [facility] home nursing is 24 hr per day continuous if associate partner. If continuous they agree to home hospice sarah. Exam/Review of Systems Vital Signs Vitals Vital Signs Date Time Temp Pulse Resp B/P Pulse Ox O2 Delivery O2 Flow Rate FiO2 05/11/16 17:52 4.0 05/11/16 08:35 Nasal Cannula 05/11/16 03:14 111 26 92 05/10/16 08:04 98.7 127/79 Intake and Output 05/10/16 05/10/16 05/11/16 15:00 23:00 07:00 Intake Total 0 ml 16.5 ml Output Total 1050 ml 500 ml Balance -1050 ml -483.5 ml Results Result Diagram: 05/07/16 0445 Medications Medications Current Medications Diphenhydramine HCl 25 mg 25 mg Q6H PRN PO ITCHING Last administered on 06:49; Admin Dose 25 MG; Start 04/02/16 at 07:00 Ondansetron HCl/ Dextrose (Zofran Inj/D5W) 54 ml @ 108 mls/hr Q6H PRN IV NAUSEA AND/OR VOMITING Last administered on 05/08/16 05:39; Admin Dose 108 MLS/ HR; Start 04/15/16 at 12:30 Metoclopramide HCl (Reglan) 10 mg Q6 IV Last administered on 05/11/16 12:20; Admin Dose 10 MG; Start 04/29/16 at 12:00 Diphenhydramine HCl (Benadryl) 25 mg Q6H PRN IV ALLERGIC REACTION Last administered on 05/07/16 21:41; Admin Dose 25 MG; Start 04/30/16 at 12:10 Hydromorphone HCl (Dilaudid) 2 mg Q2 PRN IV PAIN Last administered on 05/11/16 08:40; Admin Dose 2 MG; Start 05/05/16 at 13:30 Acetaminophen (Tylenol Supp) 650 mg Q6H PRN [place] FEVER; Start 05/07/16 at 14:30 Eye Lubricant (Artificial Tears Oph) 2 drop Q6H PRN BOTH EYES DRY EYES; Start 05/07/16 at 14:30 Hyoscyamine (Levsin (Sl)) 0.25 mg Q4H PRN SL PRN SECRETIONS Last administered on 05/11/16 12:20; Admin Dose 0.25 MG; Start 05/07/16 at 22:00 Lorazepam 1 mg 1 mg Q4 PRN IV ANXIETY Last administered on 05/11/16 03:20; Admin Dose 1 MG; Start 05/08/16 at 19:45 Hydromorphone HCl/ Dextrose (Dilaudid/D5W) 50 ml @ 3 mls/hr Q24H IV Last administered on 05/10/16 21:23; Admin Dose 2 MLS/HR; Start 05/10/16 at 20:00 Hydromorphone HCl (Dilaudid) 2 mg Q4H PRN IV PAIN Last administered on 14:32; Admin Dose 2 MG; Start 05/10/16 at 21:00 Hyoscyamine (Levsin (Sl)) 0.125 mg Q6H SL ; Start 05/11/16 at 21:00 Lorazepam (Ativan) 1 mg Q6H IV ; Start 05/11/16 at 15:30 ANDI WADDELL MD May 11, 2016 20:04
[2016-05-11] MEDS: HYOSCYAMINE 0.125 MG SUBL TAB SL SCH (20:22)
[2016-05-11] MEDS ORDERED: VITAMIN A & D 5 GM OINT PACKET TOP ONE (20:47)
[2016-05-11] MEDS: HYDROmorphONE 50 MG in DEXTROSE 5% 45 ML IV SCH (21:52)
[2016-05-12] MEDS: HYOSCYAMINE 0.125 MG SUBL TAB SL SCH ×4 (03:00→17:14)
[2016-05-12] MEDS: LORAZEPAM 2 MG INJ IV SCH ×4 (03:30→21:30)
[2016-05-12] MEDS: METOCLOPRAMIDE 10 MG INJ IV SCH ×5 (06:00→23:18)
[2016-05-12 08:26] VITALS: BP 115/76; RESP 14
--- NOTE | 2016-05-12 15:49 | DS ---
DATE OF ADMISSION: 04/02/2016 DATE OF DISCHARGE: 05/12/2016 FINAL DIAGNOSES: Metastatic ovarian cancer, status post multiple surgeries with persistent disease , status post chemo. The patient is going home with home hospice. DISCHARGE MEDICATIONS: 1. Dilaudid 2 mg an hour and 3 mg q.45h minutes 2. Levsin drops 2 drops q.3 hours p.r.n. 3. DuoNeb q.6h. p.r.n. 4. Ativan 1 mg q.6h. around the clock and q.4h. p.r.n. 5. Zofran 8 mg sublingual q.6h. p.r.n. REASON FOR ADMISSION: The patient is a 61-year-old female with history of stage III ovarian cancer status post surgery by Dr. Johnston in May 2015. Subsequently, the patient underwent multiple cyc les of chemotherapy; however, patient continues to have persistent elevated CA-125. Patient was kip gnosed with persistent disease and therefore was brought into the hospital and underwent resection s urgery for recurrent disease on 04/08/2016. The patient's postoperative course was complicated by e nterocutaneous fistula and wound dehiscence. Palliative care consult was obtained. The patient was admitted under hospice care at [facility] level of care. The patient was started on IV Dilaudid 1 mg per hour, which was titrated up to 3 mg per hour. Patient's stomach symptoms have stabilized. The holli ent also had increasing anxiety for which patient was started on IV Ativan around the clock. The pa tient this morning is breathing comfortably, has less chest congestion. The patient does have inter mittent low grade fever. No reported vomiting. The patient has generalized edema, less anxious aft er starting her on Ativan around the clock. PHYSICAL EXAMINATION: VITAL SIGNS: Temperature 100.1, pulse 111, respirations 14, blood pressure 115/76, O2 saturation 97 % on room air. NECK: Supple, no mass, no JVD. CHEST: Revealed occasional coarse breath sounds, diminished air entry at bases. CARDIOVASCULAR: S1, S2 normal. Sinus tachycardia. ABDOMEN: Enterocutaneous fistula and abdominal wound. EXTREMITIES: Edematous. NEUROLOGIC: Patient is awake, weak and frail and prognosis poor. CONDITION ON DISCHARGE: The patient is being discharged to home with [facility] level of care. Plan of care discussed with the patient's family and [facility] nurseMoncho, as well as [facility] nursing staff. Dictated By: BRIAN PATEL/RUDDY Conf#: [id number] DID#: [id number]
[2016-05-12] MEDS: HYDROmorphONE 50 MG in DEXTROSE 5% 45 ML IV SCH (17:15)
[2016-05-12] MEDS: ONDANSETRON INJ 8 MG in DEXTROSE 5% 50 ML IV PRN (20:33)
[2016-05-12 22:58] VITALS: BP 117/74; RESP 17
[2016-05-13] MEDS: HYOSCYAMINE 0.125 MG SUBL TAB SL SCH ×4 (03:00→21:24)
[2016-05-13] MEDS: LORAZEPAM 2 MG INJ IV SCH ×4 (03:01→21:24)
[2016-05-13] MEDS: ALBUTEROL/IPRATROPIUM (NEB) 3 ML AMP HHN PRN ×2 (03:14→21:38)
[2016-05-13] MEDS: METOCLOPRAMIDE 10 MG INJ IV SCH ×4 (05:10→23:52)
[2016-05-13 07:00] VITALS: BP 120/72; RESP 16
[2016-05-13] MEDS: HYDROmorphONE 50 MG in DEXTROSE 5% 45 ML IV SCH (09:31)
[2016-05-13] MEDS: LORAZEPAM 2 MG INJ IV PRN (17:22)
[2016-05-13 20:10] VITALS: BP 123/79; RESP 15
--- NOTE | 2016-05-13 20:20 | PN ---
DATE: 05/13/2016 PRIMARY HOSPICE DIAGNOSIS: Metastatic ovarian cancer. SUBJECTIVE: The patient since yesterday has continued to decline. The patient has become progressively less responsive and has increasing chest congestion and irregular respirations. The patient had a couple of episodes of anxiety, for which patient received extra doses of Ativan, in addition to around the clock and Ativan she had been receiving. The patient is also requiring frequent Levsin for chest secretions. The patient has become progressively weaker and pale. PHYSICAL EXAMINATION GENERAL: The patient is lethargic. VITAL SIGNS: Temperature 99.7, pulse 92, respirations 17, blood pressure 120/72 , O2 saturation 93% on 5 L oxygen. NECK: No JVD. CHEST: Coarse breath sounds. CARDIOVASCULAR: Regular rate and rhythm. ABDOMEN: Enterocutaneous fistula and wound present. EXTREMITIES: Edema is less today. NEUROLOGIC: Lethargic but arousable. IMPRESSION: Metastatic ovarian cancer. The patient will be continued on Dilaudid 3 mg an hour [id number] and q.4h. p.r.n. We will change Ativan to 1 mg q.4h [id number] due to ongoing anxiety. Patient remains terminally ill. Plan of care discussed with multiple family members, with nurse Joseph and [facility] staff nurse. We will continue to optimize comfort care. The patient remains appropriate for [facility] level of care. Dictated By: BRIAN PATEL/RUDDY Conf#: [id number] DID#: [id number] MTDD
[2016-05-14] MEDS: LORAZEPAM 2 MG INJ IV SCH ×6 (01:19→21:00)
[2016-05-14] MEDS: HYOSCYAMINE 0.125 MG SUBL TAB SL SCH ×4 (02:06→21:00)
[2016-05-14] MEDS: HYDROmorphONE 50 MG in DEXTROSE 5% 45 ML IV SCH (02:06)
[2016-05-14] MEDS: METOCLOPRAMIDE 10 MG INJ IV SCH ×3 (05:39→18:00)
[2016-05-14 08:03] VITALS: BP 130/82; RESP 14
--- NOTE | 2016-05-15 04:44 | DES ---
DATE OF ADMISSION: 04/02/2016 DATE OF : 05/14/2016 CAUSE OF : Metastatic ovarian cancer. HOSPITAL COURSE: The patient was a 61-year-old female with history of stage III ovarian cancer status post surgery with Dr. Johnston in May 2015. Subsequently, the patient underwent multiple cycles of chemotherapy; however, the patient continues to have persistent elevated CA-125. The patient was subsequently diagnosed with persistent disease and was brought into the hospital on the day of admission and underwent resection surgery for recurrent disease on 04/08/2016. The patient's postoperative course was complicated by enterocutaneous fistula and large abdominal wound. The patient was initially treated with TPN and IV antibiotics and was seen by multiple consultants including Dr. Johnston, Dr. Foy, Dr. Hart, and Dr. Lazar; however, the patient's condition continued to decline. Palliative care consult was obtained from Dr. Parisi, and the patient's family subsequently requested hospice evaluation. The patient was admitted under hospice care on 05/12/2016 at [facility] level of care and was already on Dilaudid drip for pain control which was subsequently optimized. The patient also had multiple episodes of anxiety for which the [facility] The [facility] was seen by me this afternoon and was declining and had respirations which were about 4 to 6 per minute. The patient was unresponsive and did have mild bilious vomiting. No reported seizure. No reported wheezing. The patient continued to become tachycardic, and subsequently the patient stopped breathing, had no heart sound , and there was no spontaneous movement. The patient was pronounced by me at 16:20. The patient's family was notified by me. The patient's family told me that they have already made arrangements for mortuary. The [facility] staff will be notified by RN. Dictated By: BRIAN PATEL/RUDDY Conf#: [id number] DID#: [id number] MTDD
== END 2016-05-14 23:17 | disposition expired | DRG 749 ==
LOC: E/R 10:35 → MS2 14:23 → UNDOADMOB 14:23 → MS2 18:54 → OBSVTOIN 04-02 10:07 → ICU 04-07 23:12 → MS1 04-09 18:45 → ICU 04-25 00:01 → MS1 04-27 23:30
PROVIDERS: ADMIT Internal Medicine; ATTEND Internal Medicine
PROC: 0WBH0ZZ Excision of Retroperitoneum, Open Approach (ICD-10-PCS; 2016-04-07)
PROC: 0DBE0ZZ Excision of Large Intestine, Open Approach (ICD-10-PCS; 2016-04-07)
PROC: 0WQF0ZZ Repair Abdominal Wall, Open Approach (ICD-10-PCS; 2016-04-07)
PROC: 30233N1 Transfusion of Nonautologous Red Blood Cells into Peripheral Vein, Percutaneous Approach (ICD-10-PCS; 2016-04-07)
PROC: 0DT80ZZ Resection of Small Intestine, Open Approach (ICD-10-PCS; principal; 2016-04-07 15:30)
PROC: 30233K1 Transfusion of Nonautologous Frozen Plasma into Peripheral Vein, Percutaneous Approach (ICD-10-PCS; 2016-04-08)
PROC: 30233N1 Transfusion of Nonautologous Red Blood Cells into Peripheral Vein, Percutaneous Approach (ICD-10-PCS; 2016-04-09)
PROC: 30233K1 Transfusion of Nonautologous Frozen Plasma into Peripheral Vein, Percutaneous Approach (ICD-10-PCS; 2016-04-09)
PROC: 30233K1 Transfusion of Nonautologous Frozen Plasma into Peripheral Vein, Percutaneous Approach (ICD-10-PCS; 2016-04-10)
PROC: 30233N1 Transfusion of Nonautologous Red Blood Cells into Peripheral Vein, Percutaneous Approach (ICD-10-PCS; 2016-04-23)
PROC: 0DT80ZZ Resection of Small Intestine, Open Approach (ICD-10-PCS; 2016-04-24)
PROC: 30233N1 Transfusion of Nonautologous Red Blood Cells into Peripheral Vein, Percutaneous Approach (ICD-10-PCS; 2016-04-24)
PROC: 30233K1 Transfusion of Nonautologous Frozen Plasma into Peripheral Vein, Percutaneous Approach (ICD-10-PCS; 2016-04-24)
PROC: 5A1935Z Respiratory Ventilation, Less than 24 Consecutive Hours (ICD-10-PCS; 2016-04-25)
PROC: 30233K1 Transfusion of Nonautologous Frozen Plasma into Peripheral Vein, Percutaneous Approach (ICD-10-PCS; 2016-04-25)
PROC: 6A551Z2 Pheresis of Platelets, Multiple (ICD-10-PCS; 2016-04-25)
PROC: 30233K1 Transfusion of Nonautologous Frozen Plasma into Peripheral Vein, Percutaneous Approach (ICD-10-PCS; 2016-04-26)
PROC: 30233K1 Transfusion of Nonautologous Frozen Plasma into Peripheral Vein, Percutaneous Approach (ICD-10-PCS; 2016-04-27)
PROC: 30233N1 Transfusion of Nonautologous Red Blood Cells into Peripheral Vein, Percutaneous Approach (ICD-10-PCS; 2016-04-28)
PROC: 30233K1 Transfusion of Nonautologous Frozen Plasma into Peripheral Vein, Percutaneous Approach (ICD-10-PCS; 2016-04-28)
DX: C56.9 Malignant neoplasm of unspecified ovary (principal); J95.821 Acute postprocedural respiratory failure; K65.1 Peritoneal abscess; K63.2 Fistula of intestine; C78.00 Secondary malignant neoplasm of unspecified lung; C77.0 Secondary and unspecified malignant neoplasm of lymph nodes of head, face and neck; N13.30 Unspecified hydronephrosis; C78.4 Secondary malignant neoplasm of small intestine; C78.5 Secondary malignant neoplasm of large intestine and rectum; R18.8 Other ascites; N13.4 Hydroureter; K43.0 Incisional hernia with obstruction, without gangrene; T81.31XA Disruption of external operation (surgical) wound, not elsewhere classified, initial encounter; I10 Essential (primary) hypertension; G89.3 Neoplasm related pain (acute) (chronic); E87.6 Hypokalemia; Y83.2 Surgical operation with anastomosis, bypass or graft as the cause of abnormal reaction of the patient, or of later complication, without mention of misadventure at the time of the procedure; Y92.230 Patient room in hospital as the place of occurrence of the external cause; B96.20 Unspecified Escherichia coli [E. coli] as the cause of diseases classified elsewhere; B95.62 Methicillin resistant Staphylococcus aureus infection as the cause of diseases classified elsewhere; Z92.21 Personal history of antineoplastic chemotherapy; Z90.710 Acquired absence of both cervix and uterus
CPT/HCPCS: 36415; 36430; 36600; 71010; 74176; 74177; 74178; 80048; 80053; 80076; 80202; 81003; 82150; 82550; 82553; 82803; 82962; 83690; 83735; 84100; 84484; 85025; 85049; 85362; 85378; 85384; 85610; 85670; 85730; 86304; 86850; 86900; 86901; 86920; 86945; 87040; 87070; 87075; 87081; 87086; 88307; 93005; 93923; 94002; 94003; 94640; 94664; 94770; 96372; 96374; 96375; 96376; 97116; 97162; 97530; J1940; C9113; G0378; J0131; J0360; J0690; J0743; J0744; J1100; J1170; J1200; J1644; J1650; J1885; J1956; J2060; J2175; J2250; J2354; J2405; J2543; J2710; J2765; J3010; J3370; J3475; J3480; J7030; J7040; J7042; J7050; P9016; P9035; P9045; P9059; Q9967